=== PATIENT | female | born 1980 | race Caucasian/White ===

== ENCOUNTER 2017-01-17 11:14 | Emergency (ER) | payer OTHER, MEDICAID ==
[~2017-01-17] VITALS: Ht 160 cm; Wt 78.5 kg
[~2017-01-17 11:14] MED LIST: ACET-2267 PO; ACHD5005; ACHD5005 PO; ALBU17AE23 INH; ALBU8.5H2; ALBU8.5H4 IH; ALBU90AE INH; ALDACTONE25 MG; AMIT50TA3; AZTH250C PO; BENZ-13 PO; BUDE3CAP; BUDE3CAP5; CETI10CA PO; CIPR-225 PO; CIPR500T4 PO; CIPR500T78 PO; CLIN50GE; CLNZ.5T PO; CLON0.5T3; COLE1TAB PO; CPR500T PO; CYCL10TA9 PO; DICY10CA26 PO; DICY20TA33 PO; DIPH1TAB45 PO; DIUREX; DOXY-13; ENAL10TA PO; ESCT10T PO; FAMO-119 PO; HCA25SU PR; HYDR-34 PO; HYDR-3583 PO; HYDR-3714 PO; HYDR-3812; HYDR-3816 PO; HYDR-3820 PO; HYDR-757 PO; HYDR-87 PO; HYDR118S10 PO; HYDR1CAP14 PO; HYDR1TAB PO; HYDR1TAB66 PO; HYDR1TAB75; HYDROCODONE; HYOS0.1216 PO; HYOS0.1218 SL; HYOS0.1283 SL; IBP600T1; IBP800T PO; LORA0.5T; LORA10CA PO; LORA10TA7 PO; LRT10T PO; MESA1.2T PO; MESA500C PO; METH4TAB PO; METR500T PO; METR500T21 PO; MSL250CCR PO; NERVE PILL; NF-AMPE5T; NF-FLON16G NSEACH; NITR-65 PO; OMEP20CA12 PO; OMEP40CA36; ONDA4TAB11 PO; ONDA4TAB8 SL; ONDA8TAB13 PO; ONDN4T PO; OXYC-197 PO; OXYC-471 PO; PANT40SU PO; PNT40TEC PO; POTA10TA6 PO; PRD10T PO; PRD20T PO; PRD5T PO; PRED20TA PO; PROM12.59 PO; PROM25TA14 PO; REMICADE IV; RIFA150C15 PO; SUCR1ORA5 PO; SULF1TAB38 PO; TRAM50TA2 PO; TRAZ-144 PO; TRM50T PO; ZINC30CA PO; ZITHROMAX; ZLP10T; [UNRECOGNIZED DRUG - REMARK]
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
[2017-01-17] MEDS ORDERED: morphine INJ 10 MG/ML 1ML (SYR OR VIAL) IM ONE (11:45)
[2017-01-17] MEDS ORDERED: ORPHENADRINE 60 MG/2 ML (NORFLEX) AMP IM ONE (11:45)
--- NOTE | 2017-01-17 12:01 | Diagnostic Imaging Report ---
INDICATION: Chest pain. FINDINGS: Examination of the chest in the PA and lateral projections fails to reveal evidence of active parenchymal pathology or pleural effusion. The cardiac silhouette is normal. IMPRESSION: Negative chest. Dictated by: Dictated on workstation # [id number]
[2017-01-17 12:10] VITALS: BP 130/103
--- OUTSIDE RECORDS SUMMARY | 2017-02-02 13:11 | XMS REPORT | Continuity of Care Document ---
Author Author [facility] Organization [facility] Address Unknown Phone Unavailable Care Team Providers Care Customer Complaint Service Supervisor Name Role Phone Naveed Lockhart PCP [phone] Source Comments Some departments are not documenting in the electronic medical record. If you do not see the information that you expected, contact Release of Information in the Health Information Management department at [phone] for further assistance in locating additional records.[facility] Active Allergies and Adverse Reactions Allergen Noted Date Severity Reactions Comments Nsaids (Non-Steroidal 06/22/2012 SEE COMMENTS Stomach bleeding Anti-Inflammatory Drug) Pcn 12/19/2008 Current Medications Prescription Sig. Disp. Refills Start End Date Status Date HYDROcodone/acetaminophen Take 1 Tab by mouth every Active (NORCO; VICODIN) 5-325 mg 6 hours as needed. tablet LORATADINE (CLARITIN PO) Take by mouth. Active Sodium,Potassium,&Mag Take 2 Bottles by mouth 354 mL 0 05/19/20 Active Sulfates 17.5-3.13-1.6 as directed. For split 16 gram solr dose colonoscopy prep. budesonide (ENTOCORT EC) Take 1 Cap by mouth as 168 Cap 0 05/21/20 Active 3 mg capsule directed. 3 tabs daily x 16 8 weeks, 2 tabs daily x 1 week, 1 tab daily x 1 week then stop cholecalciferol(+) Take 1 Cap by mouth every 8 Cap 0 05/22/20 Active (Vitamin D3) 50,000 units 7 days. 8 weeks,then OTC 16 capsule Vit D3 1000units by mouth daily thereafter. Check lab in 12 weeks. mesalamine (LIALDA) 1.2 Take 4 Tabs by mouth 120 Tab 0 07/28/20 Active gram tablet daily with breakfast. 16 PENTASA 500 mg cpER TAKE 2 CAPSULES BY MOUTH 240 Cap 0 10/12/20 Active TWICE DAILY [address](+) TAKE 1 CAPSULE BY MOUTH 90 Cap 1 11/10/19 Active (PRILOSEC) 40 mg capsule DAILY BEFORE BREAKFAST 17 Active Problems Problem Noted Date Inadequate material resources 12/25/2014 Noncompliance 05/29/2014 Crohn's disease (HCC) 08/02/2012 Most Recent Encounters Date Type Specialty Providers Description 12/11/2016 Telephone Gastroenterology Moncho Odonnell MD Erroneous encounter-disregard 12/10/2016 Telephone Gastroenterology Loreta Mcfadden ARNP General Question 11/08/2016 Refill Gastroenterology Loreta Mcfadden ARNP Social History Tobacco Use Types Packs/Day Years Used Date Current Every Day Smoker Cigarettes 0.5 11 Smokeless Tobacco: Former Quit: User 06/29/2016 Tobacco Cessation: Ready to Quit: No; Counseling Given: Yes Comments: Alcohol Use Drinks/Week oz/Week Comments No 0 Standard 0.0 drinks or equivalent Last Filed Vital Signs Vital Sign Reading Time Taken Blood Pressure 137/98 07/03/2016 2:02 PM CDT Pulse 61 07/03/2016 2:02 PM CDT Temperature 36.4 C (97.5 F) 07/03/2016 2:02 PM CDT Respiratory Rate 18 05/19/2016 1:19 PM CDT Height 1.6 m (5' 3") 07/03/2016 2:02 PM CDT Weight 76.658 kg (169 lb) 07/03/2016 2:02 PM CDT Body Mass Index 29.94 07/03/2016 2:02 PM CDT Oxygen Saturation 99% 05/21/2016 8:39 AM CDT Plan of Care Health Maintenance Due Date Last Done Comments Physical (Comprehensive) 1985 Exam Pertussis Vaccine 1989 Tetanus Vaccine 1995 Cervical Cancer Screening 1999 Influenza Vaccine 06/25/2017 Results from Last 3 Months Not on file
--- OUTSIDE RECORDS SUMMARY | 2017-02-02 13:22 | XMS REPORT | Continuity of Care Document ---
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 NEGATIVE NEGATIVE Urine glucose detection by automated test strip NEGATIVE NEGATIVE Erythrocytes detection in urine sediment by light microscopy NEGATIVE NEGATIVE Urine ketones detection by automated test strip NEGATIVE NEGATIVE Urine nitrite detection by test strip NEGATIVE NEGATIVE Urine total bilirubin detection by test strip NEGATIVE NEGATIVE Urine urobilinogen measurement by automated test strip (mass/volume) NORMAL NORMAL Urine leukocyte esterase detection by dipstick 1+ NEGATIVE Automated urine sediment erythrocyte count by microscopy (number/high power field) NONE NRG Automated urine sediment leukocyte count by microscopy (number/high power field ) [HPF] NRG Bacteria detection in urine sediment by light microscopy TRACE NRG Crystals detection in urine sediment by light microscopy NONE NRG Casts detection in urine sediment by light microscopy NONE NRG Mucus detection in urine sediment by light microscopy MODERATE NRG Complete urinalysis with reflex to culture NO NRG Complete blood count (CBC) with automated white blood cell (WBC) differential - 09/12/16 14:40 Blood leukocytes automated count (number/volume) 8.5 10*3/ uL 4.3-11.0 Blood erythrocytes automated count (number/volume) 4.48 10*6 /uL 4.35-5.85 Venous blood hemoglobin measurement (mass/volume) 14.0 g/dL 11.5-16.0 Blood hematocrit (volume fraction) 42 % 35-52 Automated erythrocyte mean corpuscular volume 93 [foz_us] 80-99 Automated erythrocyte mean corpuscular hemoglobin (mass per erythrocyte) 31 pg 25-34 Automated erythrocyte mean corpuscular hemoglobin concentration measurement ( mass/volume) 34 g/dL 32-36 Automated erythrocyte distribution width ratio 13.4 % 10.0-14.5 Automated blood platelet count (count/volume) 342 10*3/uL 130-400 Automated blood platelet mean volume measurement 8.9 [foz_us ] 7.4-10.4 Automated blood neutrophils/100 leukocytes 54 % 42-75 Automated blood lymphocytes/100 leukocytes 33 % 12-44 Blood monocytes/100 leukocytes 8 % 0-12 Automated blood eosinophils/100 leukocytes 4 % 0-10 Automated blood basophils/100 leukocytes 1 % 0-10 Blood neutrophils automated count (number/volume) 4.6 10*3 1.8-7.8 Blood lymphocytes automated count (number/volume) 2.8 10*3 1.0-4.0 Blood monocytes automated count (number/volume) 0.7 10*3 0.0-1.0 Automated eosinophil count 0.4 10*3/uL 0.0-0.3 Automated blood basophil count (count/volume) 0.1 10*3/uL 0.0-0.1 Comprehensive metabolic panel - 09/12/16 14:40 Serum or plasma sodium measurement (moles/volume) 142 mmol/ L 135-145 Serum or plasma potassium measurement (moles/volume) 3.6 mmol/L 3.6-5.0 Serum or plasma chloride measurement (moles/volume) 110 mmol /L 98-107 Carbon dioxide 24 mmol/L 21-32 Serum or plasma anion gap determination (moles/volume) 8 mmol/L 5-14 Serum or plasma urea nitrogen measurement (mass/volume) 10 mg/dL 7-18 Serum or plasma creatinine measurement (mass/volume) 0.81 mg /dL 0.60-1.30 Serum or plasma urea nitrogen/creatinine mass ratio 12 NRG Serum or plasma creatinine measurement with calculation of estimated glomerular filtration rate > NRG Serum or plasma glucose measurement (mass/volume) 90 mg/dL 70-105 Serum or plasma calcium measurement (mass/volume) 9.4 mg/dL 8.5-10.1 Serum or plasma total bilirubin measurement (mass/volume) 0.4 mg/dL 0.1-1.0 Serum or plasma alkaline phosphatase measurement (enzymatic activity/volume) 89 U/L 40-136 Serum or plasma aspartate aminotransferase measurement (enzymatic activity/ volume) 15 U/L 5-34 Serum or plasma alanine aminotransferase measurement (enzymatic activity/volume ) 15 U/L 0-55 Serum or plasma protein measurement (mass/volume) 6.4 g/dL 6.4-8.2 Serum or plasma albumin measurement (mass/volume) 4.2 g/dL 3.2-4.5 Lipase - 09/12/16 14:40 Lipase 33 U/L 8-78 Serum or plasma C reactive protein measurement (mass/volume) - 09/12/16 14:40 Serum or plasma C reactive protein measurement (mass/volume) 0.35 mg/dL 0.00-0.50 Erythrocyte sedimentation rate by westergren method - 09/12/16 14:40 Erythrocyte sedimentation rate by westergren method 7 mm 0-20 Complete urinalysis with reflex to culture - 09/12/16 15:45 Urine color determination YELLOW NRG Urine clarity determination CLEAR NRG Urine pH measurement by test strip 6 5- 9 Specific gravity of urine by test strip 1.010 1.016-1.022 Urine protein assay by test strip, semi-quantitative NEGATIVE NEGATIVE Urine glucose detection by automated test strip NEGATIVE NEGATIVE Erythrocytes detection in urine sediment by light microscopy NEGATIVE NEGATIVE Urine ketones detection by automated test strip NEGATIVE NEGATIVE Urine nitrite detection by test strip NEGATIVE NEGATIVE Urine total bilirubin detection by test strip NEGATIVE NEGATIVE Urine urobilinogen measurement by automated test strip (mass/volume) NORMAL NORMAL Urine leukocyte esterase detection by dipstick NEGATIVE NEGATIVE Automated urine sediment erythrocyte count by microscopy (number/high power field) NONE NRG Automated urine sediment leukocyte count by microscopy (number/high power field ) [HPF] NRG Bacteria detection in urine sediment by light microscopy NEGATIVE NRG Squamous epithelial cells detection in urine sediment by light microscopy 5-10 NRG Crystals detection in urine sediment by light microscopy NONE NRG Casts detection in urine sediment by light microscopy NONE NRG Mucus detection in urine sediment by light microscopy NEGATIVE NRG Complete urinalysis with reflex to culture NO NRG Renal epithelial cells detection in urine sediment by light microscopy NONE NRG Encounters ACCT No. Visit Date/Time Discharge Status Pt. Type Provider Facility Loc./Unit Complaint [id number] 06/07/2013 12:29:00 06/07/2013 23: 59:59 CLS Outpatient
--- OUTSIDE RECORDS SUMMARY | 2017-02-02 13:23 | XMS REPORT ---
Author Author WESTON BERRIOS Organization [employer] Address Unknown Phone Unavailable Care Team Providers Care Senior Research Scientist Name Role Phone WESTON BERRISO CP Unavailable Allergies, Adverse Reactions, Alerts Substance Reaction Event Type Penicillin V Potassium Info Not Available Drug Allergy Aspirin Info Not Available Drug Allergy NSAIDS Info Not Available Non Drug Allergy Problems Problem Type Condition Code Onset Dates Condition Status Assessment Dental examination Z01.20 Active Problem Nausea alone 787.02 Active Problem Other drug allergy 995.27 Active Problem Acute pain due to trauma 338.11 Active Problem Injury, other and unspecified, unspecified site 959.9 Active Problem Other general symptoms 780.99 Active Problem Diarrhea 787.91 Active Problem Shortness of breath 786.05 Active Problem Pain in joint, ankle and foot 719.47 Active Problem Injury, other and unspecified, knee, leg, ankle, and foot 959.7 Active Medications Medication Code System Code Instructions Start Date End Date Status Dosage Bauxite [facility] [place] [address]-39 5-325 MG Orally every 6 hrs 1 tablet as needed Claritin [facility] [place] [address]-21 not defined Phenergan [facility] [place] [address]-84 not defined Procedures Procedure Coding System Code Date LTD ORAL EVALUATION - PROBLEM FOCUS CPT-4 D0140 Nov 07, 2015 Vital Signs Date/Time: Nov 07, 2015 Blood Pressure Diastolic 74 mmHg Blood Pressure Systolic 113 mmHg Results No Known Results Summary Purpose [employer] Submission
== END 2017-01-17 12:10 | disposition home or self-care (01) ==
LOC: EDUNIT# 11:14 → ER 11:17
DX: S29.9XXA Unspecified injury of thorax, initial encounter (principal); Y04.8XXA Assault by other bodily force, initial encounter; Y92.159 Unspecified place in reform school as the place of occurrence of the external cause; Y99.0 Civilian activity done for income or pay
CPT/HCPCS: 71020; 96372; 99284

== ENCOUNTER 2017-02-18 14:11 | Emergency (ER) | payer MEDICAID ==
[~2017-02-18] VITALS: Ht 160 cm; Wt 79.4 kg
[2017-02-18] MEDS ORDERED: NS IV 1000 ML 1,000 ML IV STA (15:50)
[2017-02-18] MEDS ORDERED: fentaNYL INJECTION 100 MCG/2 ML AMP IVP STA (15:50)
--- NOTE | 2017-02-18 15:58 | ED Abdominal Pain ---
General Chief Complaint: Abdominal/GI Problems Stated Complaint: ABD PAIN/DIARRHEA Source of Information: Patient Exam Limitations: No Limitations History of Present Illness Time Seen By Provider: 15:40 Initial Comments Here with report of central abdominal pain typical for her Crohn's flare. Denies vomiting but has nausea. Does report diarrhea. Reports she may have had a little blood in some of her diarrhea. She has long history of this. Denies fever or chills. Timing/Duration: 1 Week, Changing Over Time, Getting Worse Severity/Quality: Moderate, Sharp Location: RLQ Radiation: No Radiation Activities at Onset: None Modifying Factors: Worsens With Eating Associated Symptoms: No Back Pain, No Fever/Chills, Nausea/Vomiting, No Shortness of Air, No Weakness Allergies and Home Medications Allergies Coded Allergies: NSAIDS (Non-Steroidal Anti-Inflamma (Verified Allergy, Intermediate, ) Penicillins (Verified Allergy, Mild, HIVES, 02/22/09) penicillin V (Unverified Allergy, Mild, 02/24/09) Sulfa (Sulfonamide Antibiotics) (Verified Allergy, Unknown, 01/17/14) BREAK OUT IN A RED RASH WITH VOMITING ketorolac tromethamine (Unverified Allergy, Unknown, 01/17/14) naproxen (Unverified Allergy, Unknown, 01/17/14) Uncoded Allergies: PCN (Allergy, Mild, 05/01/09) ANTI-INFLAMMATORY (Allergy, Unknown, 01/17/14) Home Medications Dicyclomine HCl 20 Mg Tablet, 20 MG PO TID, #30 Ref 0 Prescribed by: IGNACIO SHIELDS on 09/12/16 1633 Famotidine 20 Mg Tablet, 20 MG PO BID, #60 Ref 0 Prescribed by: IGNACIO SHIELDS on 09/12/16 1647 Hydrocodone/Acetaminophen 1 Each Tablet, #63 (Reported) Hydrocodone/Acetaminophen 1 Each Tablet, 1 EACH PO Q4H PRN for PAIN, #20 Ref 0 Prescribed by: IGNACIO SHIELDS on 08/26/16 1946 Mesalamine 500 Mg Capsule.er, 1,000 MG PO BID, (Reported) TAKES 2 (500MG) CAPSULES Omeprazole 40 Mg Capsule., #30 (Reported) Review of Systems Constitutional: see HPI, No chills, No fever EENTM: No Symptoms Reported Respiratory: No Symptoms Reported Cardiovascular: No Symptoms Reported Gastrointestinal: See HPI, Abdominal Pain, Diarrhea, Rectal Bleeding Genitourinary: No Symptoms Reported All Other Systems Reviewed Negative Unless Noted: Yes Past [id number]-[id number] Hx Patient Social History Alcohol Use: Denies Use Recreational Drug Use: No (SMOKES 1/2 PPD) Type Used: Cigarettes Recent Foreign Travel: No Contact w/Someone Who Travel: No Recent Hopitalizations: Yes Immunizations Up To Date Tetanus Booster (TDap): Less than 5yrs Date of Pneumonia Vaccine: Nov 04, 2010 Date of Influenza Vaccine: Jul 12, 2011 Seasonal Allergies Seasonal Allergies: Yes Surgeries HX Surgeries: Yes (BURN SURG, SMALL BOWEL RESECT, NASAL, RIGHT HIP) Surgeries: Abdominal, Appendectomy, Section, Gallbladder, Hysterectomy , Orthopedic, 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 Respiratory Hx Respiratory Disorders: Yes Respiratory Disorders: Asthma Cardiovascular Hx Cardiac Disorders: No Cardiac Disorders: Hypertension Neurological Hx Neurological Disorders: No Reproductive System Hx Reproductive Disorders: Yes (PCOS) Sexually Transmitted Disease: No 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: Hysterectomy, 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 Genitourinary Hx Genitourinary Disorders: Yes Genitourinary Disorders: Kidney Stones Gastrointestinal Hx Gastrointestinal Disorders: Yes (chronic abdominal pain, nausea, vomiting, and diarrhea) Gastrointestinal Disorders: Crohns Disease Musculoskeletal Hx Musculoskeletal Disorders: Yes Musculoskeletal Disorders: Back Injury, Chronic Back Pain Endocrine Hx Endocrine Disorders: No HEENT HX ENT Disorders: No Cancer Hx Cancer: No Psychosocial Hx Psychiatric Problems: Yes Behavioral Health Disorders: Anxiety Integumentary HX Skin/Integumentary Disorder: No Blood Transfusions Hx Blood Disorders: No Adverse Reaction to a Blood Tr: No Reviewed Nursing Assessment Reviewed/Agree w Nursing PMH: Yes Family Medical History Significant Family History: No Pertinent Family Hx Family Medial History: Family history: Diabetes mellitus 19 FATHER 19 MOTHER G8 SISTER Physical Exam Vital Signs VS - Last 72 Hours, by Label 02/18/17 15:17 Temp 98.2 Pulse 78 Resp 18 B/P (MAP) 142/95 Pulse Ox 97 O2 Delivery Room Air Capillary Refill : General Appearance: WD/WN, no apparent distress HEENT: PERRL/EOMI, pharynx normal Neck: full range of motion, supple Respiratory: lungs clear, normal breath sounds Cardiovascular: regular rate, rhythm, no murmur Gastrointestinal: non tender, soft Extremities: non-tender, normal inspection Back: normal inspection, no CVA tenderness, no vertebral tenderness Neurologic/Psychiatric: alert, oriented x 3 Skin: normal color, warm/dry Progress/Results/Core Measures Results/Orders Lab Results Laboratory Tests Test 02/18/17 15:45 Range/Units White Blood Count 11.6 H 4.3-11.0 10^3/uL Red Blood Count 4.58 4.35-5.85 10^6/uL Hemoglobin 14.3 11.5-16.0 G/DL Hematocrit 43 35-52 % Mean Corpuscular Volume 94 80-99 FL Mean Corpuscular Hemoglobin 31 25-34 PG Mean Corpuscular Hemoglobin Concent 33 32-36 G/DL Red Cell Distribution Width 13.0 10.0-14.5 % Platelet Count 380 130-400 10^3/uL Mean Platelet Volume 8.7 7.4-10.4 FL Neutrophils (%) (Auto) 56 42-75 % Lymphocytes (%) (Auto) 26 12-44 % Monocytes (%) (Auto) 5 0-12 % Eosinophils (%) (Auto) 13 H 0-10 % Basophils (%) (Auto) 0 0-10 % Neutrophils # (Auto) 6.5 1.8-7.8 X 10^3 Lymphocytes # (Auto) 3.0 1.0-4.0 X 10^3 Monocytes # (Auto) 0.6 0.0-1.0 X 10^3 Eosinophils # (Auto) 1.4 H 0.0-0.3 10^3/uL Basophils # (Auto) 0.0 0.0-0.1 10^3/uL Neutrophils % (Manual) 54 % Lymphocytes % (Manual) 37 % Monocytes % (Manual) 2 % Eosinophils % (Manual) 7 % Basophils % (Manual) 0 % Band Neutrophils 0 % Blood Morphology Comment NORMAL Erythrocyte Sedimentation Rate 11 0-20 MM/HR Sodium Level 143 135-145 MMOL/L Potassium Level 3.7 3.6-5.0 MMOL/L Chloride Level 107 98-107 MMOL/L Carbon Dioxide Level 26 21-32 MMOL/L Anion Gap 10 5-14 MMOL/L Blood Urea Nitrogen 6 L 7-18 MG/DL Creatinine 0.79 0.60-1.30 MG/DL Estimat Glomerular Filtration Rate > 60 BUN/Creatinine Ratio 8 Glucose Level 77 70-105 MG/DL Calcium Level 9.5 8.5-10.1 MG/DL Magnesium Level 2.0 1.8-2.4 MG/DL Total Bilirubin 0.3 0.1-1.0 MG/DL Aspartate Amino Transf (AST/SGOT) 24 5-34 U/L Alanine Aminotransferase (ALT/SGPT) 27 0-55 U/L Alkaline Phosphatase 86 40-136 U/L C-Reactive Protein High Sensitivity 0.37 0.00-0.50 MG/DL Total Protein 6.7 6.4-8.2 G/DL Albumin 4.1 3.2-4.5 G/DL My Orders Orders - SUKI VARELA MD Cbc With Automated Diff (02/18/17 15:50) Comprehensive Metabolic Panel (02/18/17 15:50) Hs C Reactive Protein (02/18/17 15:50) Magnesium (02/18/17 15:50) Erythrocyte Sedimentation Rate (02/18/17 15:50) Fentanyl Injection (Sublimaze Injection (02/18/17 15:50) Ondansetron Injection (Zofran Injectio (02/18/17 16:00) Ns Iv 1000 Ml (Sodium Chloride 0.9%) (02/18/17 15:50) Manual Differential (02/18/17 15:45) Hydrocodone/Apap 10/325 Tablet (Lortab 1 (02/18/17 17:10) Medications Given in ED Current Medications Medications Dose Ordered Sig/Dominga Route Start Time Stop Time Status Last Admin Dose Admin Ondansetron HCl 4 mg ONCE ONCE IVP 02/18/17 16:00 02/18/17 16:01 DC 02/18/17 16:04 4 MG Vital Signs/I&O Vital Sign - Last 12Hours 02/18/17 15:17 Temp 98.2 Pulse 78 Resp 18 B/P (MAP) 142/95 Pulse Ox 97 O2 Delivery Room Air Progress Note : Progress Note Seen and evaluated. IV, labs, normal saline 1 L bolus, fentanyl 100 g IV and Zofran 4 mg IV ordered. Monitor patient. 1700: No significant acute findings on laboratory data and CRP and sedimentation rate are normal. We will initiate steroid treatment and I will write a small prescription for pain medicine. She is to follow-up with Dr. Armas. Discharged home with return precautions. Patient and family verbalize understanding instructions and agreement with plan. Departure Impression Impression: Primary Impression: Abdominal pain Qualified Codes: R10.30 - Lower abdominal pain, unspecified Disposition: 01 HOME, SELF-CARE Condition: Stable Departure-Patient Inst. Decision time for Depature: 17:18 Referrals: ROSANGELA ARMAS DO (PCP/Family) Primary Care Physician Patient Instructions: Acute Abdomen (Belly Pain), Adult (DC), Crohn's Disease ( DC) Add. Discharge Instructions: All discharge instructions reviewed with patient and/or family. Voiced understanding. Clear liquid diet for 24 hours and then advance as tolerated. Take medications as directed. Follow-up with Dr. Armas in a few days for recheck. Return for worse pain, fever, vomiting, weakness, breathing problems, increasing blood in stool or other concerns as needed. Scripts Prednisone (Prednisone) 20 Mg Tab 40 MG PO DAILY, #614 TAB 0 Refills Prov: SUKI VARELA MD 02/18/17 Hydrocodone/Acetaminophen (Hydrocodon-Acetaminophn 10-325) 1 Each Tablet 1 EACH PO Q8H Y for PAIN, #10 TAB 0 Refills Prov: SUKI VARELA MD 02/18/17 Copy Copies To 1: ROSANGELA ARMAS TIMOTHY D MD Feb 18, 2017 15:58
[2017-02-18] MEDS ORDERED: ONDANSETRON 4 MG/2 ML (SDV) Z0FRAN IVP ONE (16:00)
[2017-02-18 16:21] LABS: BASOPHILS % (AUTO) 0 % (0-10); EOSINOPHILS # (AUTO) 1.4 10^3/uL (0.0-0.3); EOSINOPHILS % (AUTO) 13 % (0-10); LYMPHOCYTES % (AUTO) 26 % (12-44); MEAN CORPUSCULAR HEMOGLOBIN 31 PG (25-34); MEAN CORPUSCULAR HGB CONC 33 G/DL (32-36); MEAN CORPUSCULAR VOLUME 94 FL (80-99); MEAN PLATELET VOLUME 8.7 FL (7.4-10.4); MONOCYTES # (AUTO) 0.6 X 10^3 (0.0-1.0); MONOCYTES % (AUTO) 5 % (0-12); NEUTROPHILS # (AUTO) 6.5 X 10^3 (1.8-7.8); NEUTROPHILS % (AUTO) 56 % (42-75); PLATELET COUNT 380 10^3/uL (130-400); RED BLOOD COUNT 4.58 10^6/uL (4.35-5.85); WHITE BLOOD COUNT 11.6 10^3/uL (4.3-11.0)
[2017-02-18 16:26] LABS: ALANINE AMINOTRANSFERASE 27 U/L (0-55); ALBUMIN 4.1 G/DL (3.2-4.5); ANION GAP 10 MMOL/L (5-14); ASPARTATE AMINO TRANSFERASE 24 U/L (5-34); BILIRUBIN,TOTAL 0.3 MG/DL (0.1-1.0); BLOOD UREA NITROGEN 6 MG/DL (7-18); BUN/CREATININE RATIO 8; CALCIUM 9.5 MG/DL (8.5-10.1); CARBON DIOXIDE 26 MMOL/L (21-32); CHLORIDE 107 MMOL/L (98-107); CREATININE SERUM 0.79 MG/DL (0.60-1.30); GFR ESTIMATED > 60; GLUCOSE 77 MG/DL (70-105); POTASSIUM 3.7 MMOL/L (3.6-5.0); SODIUM 143 MMOL/L (135-145); TOTAL PROTEIN 6.7 G/DL (6.4-8.2); hs C REACTIVE PROTEIN 0.37 MG/DL (0.00-0.50)
[2017-02-18 16:41] LABS: BAND NEUTROPHILS 0 %; BASOPHILS % (MANUAL) 0 %; EOSINOPHILS % (MANUAL) 7 %; LYMPHOCYTES % (MANUAL) 37 %; NEUTROPHILS % (MANUAL) 54 %
[2017-02-18 17:04] LABS: ERYTHROCYTE SEDIMENTATION RATE 11 MM/HR (0-20)
[2017-02-18] MEDS ORDERED: HYDROcodone/APAP 10 MG/325 MG (LORTAB) TAB PO STA (17:10)
[2017-02-18] MEDS ORDERED: HYDR-3820 PO (17:19)
[2017-02-18] MEDS ORDERED: PRD20T PO (17:19)
[2017-02-18 17:30] VITALS: BP 145/90
== END 2017-02-18 17:31 | disposition home or self-care (01) ==
LOC: EDUNIT# 14:11 → ER 14:14
DX: R10.30 Lower abdominal pain, unspecified (principal); R19.7 Diarrhea, unspecified; I10 Essential (primary) hypertension; F17.210 Nicotine dependence, cigarettes, uncomplicated; K50.90 Crohn's disease, unspecified, without complications
CPT/HCPCS: 36415; 80053; 83735; 85007; 85027; 85652; 86141; 96361; 96374; 96375

== ENCOUNTER 2017-03-19 20:25 | Emergency (ER) | payer MEDICAID ==
[~2017-03-19] VITALS: Ht 160 cm; Wt 78.9 kg
[~2017-03-19 20:25] MED LIST changes: -OMEP40CA36; +OMEP40CA36 PO
[2017-03-19] MEDS ORDERED: LORA10CA PO (20:48)
--- NOTE | 2017-03-19 20:55 | ED Abdominal Pain ---
General Chief Complaint: Abdominal/GI Problems Stated Complaint: PROBLEMS WITH CROHNS Source of Information: Patient Exam Limitations: No Limitations History of Present Illness Time Seen By Provider: 20:53 Initial Comments To ER with abdominal pain since this morning. States she has Crohn's and she saw ISABEL on Wednesday of this past week discussing medication changes. Currently she is on Pentasa (though external medication history shows this not to have been filled since December of this year) and has been presrcibed steroids twice within the past 2 months. Denies fevers or chills. Coincidentally, she ran out of her hydrocodone 2 days ago. Severity/Quality: Dull Location: Generalized Abdomen Radiation: No Radiation Allergies and Home Medications Allergies Coded Allergies: NSAIDS (Non-Steroidal Anti-Inflamma (Verified Allergy, Intermediate, ) Penicillins (Verified Allergy, Mild, HIVES, 02/22/09) penicillin V (Unverified Allergy, Mild, 02/24/09) Sulfa (Sulfonamide Antibiotics) (Verified Allergy, Unknown, 01/17/14) BREAK OUT IN A RED RASH WITH VOMITING ketorolac tromethamine (Unverified Allergy, Unknown, 01/17/14) naproxen (Unverified Allergy, Unknown, 01/17/14) Uncoded Allergies: PCN (Allergy, Mild, 05/01/09) ANTI-INFLAMMATORY (Allergy, Unknown, 01/17/14) Home Medications Cefuroxime Axetil 250 Mg Tablet, 250 MG PO BID, #10 Prescribed by: REAL MUÑOZ on 03/19/172113 Famotidine 20 Mg Tablet, 20 MG PO BID, #60 Ref 0 Prescribed by: IGNACIO SHIELDS on 09/12/16 1647 Hydrocodone/Acetaminophen 1 Each Tablet, 1 EACH PO Q4H PRN for PAIN, #20 Ref 0 Prescribed by: IGNACIO SHIELDS on 08/26/16 1946 Loratadine 10 Mg Capsule, 10 MG PO DAILY, (Reported) Mesalamine 500 Mg Capsule.er, 1,000 MG PO BID, (Reported) TAKES 2 (500MG) CAPSULES Omeprazole 40 Mg Capsule.dr, 40 MG PO DAILY, #30 (Reported) Review of Systems Constitutional: see HPI EENTM: No Symptoms Reported Respiratory: No Symptoms Reported Gastrointestinal: See HPI, Abdominal Pain, Diarrhea Genitourinary: No Symptoms Reported Musculoskeletal: no symptoms reported Skin: no symptoms reported Psychiatric/Neurological: No Symptoms Reported Endocrine: No Symptoms Reported Past Qbcxjff-Zaxbyt-Cbnctp Hx Patient Social History Type Used: Cigarettes Recent Foreign Travel: No Contact w/Someone Who Travel: No Recent Hopitalizations: Yes Immunizations Up To Date Tetanus Booster (TDap): Less than 5yrs Date of Pneumonia Vaccine: Nov 04, 2010 Date of Influenza Vaccine: Jul 12, 2011 Seasonal Allergies Seasonal Allergies: Yes Surgeries HX Surgeries: Yes (BURN SURG, SMALL BOWEL RESECT, NASAL, RIGHT HIP) Surgeries: Abdominal, Appendectomy, Section, Gallbladder, Hysterectomy , Orthopedic, 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 Respiratory Hx Respiratory Disorders: Yes Respiratory Disorders: Asthma Cardiovascular Hx Cardiac Disorders: No Cardiac Disorders: Hypertension Neurological Hx Neurological Disorders: No Reproductive System Hx Reproductive Disorders: Yes (PCOS) Sexually Transmitted Disease: No 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, 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 Genitourinary Hx Genitourinary Disorders: Yes Genitourinary Disorders: Kidney Stones Gastrointestinal Hx Gastrointestinal Disorders: Yes (chronic abdominal pain, nausea, vomiting, and diarrhea) Gastrointestinal Disorders: Crohns Disease Musculoskeletal Hx Musculoskeletal Disorders: Yes Musculoskeletal Disorders: Back Injury, Chronic Back Pain Endocrine Hx Endocrine Disorders: No HEENT HX ENT Disorders: No Cancer Hx Cancer: No Psychosocial Hx Psychiatric Problems: Yes Behavioral Health Disorders: Anxiety Integumentary HX Skin/Integumentary Disorder: No Blood Transfusions Hx Blood Disorders: No Adverse Reaction to a Blood Tr: No Family Medical History Significant Family History: No Pertinent Family Hx Family Medial History: Family history: Diabetes mellitus 19 FATHER 19 MOTHER G8 SISTER Physical Exam Vital Signs VS - Last 72 Hours, by Label 03/19/17 03/19/17 03/19/17 20:39 21:04 21:35 Temp 98.4 98.4 98.4 Pulse 87 87 Resp 20 20 B/P (MAP) 143/103 Pulse Ox 97 97 O2 Delivery Room Air Capillary Refill : General Appearance: WD/WN, no apparent distress HEENT: PERRL/EOMI, normal ENT inspection Neck: non-tender, full range of motion Respiratory: no respiratory distress, no accessory muscle use Cardiovascular: regular rate, rhythm, no murmur Gastrointestinal: normal bowel sounds, soft, tenderness Extremities: normal range of motion Neurologic/Psychiatric: alert, normal mood/affect, oriented x 3 Skin: normal color, warm/dry Progress/Results/Core Measures Results/Orders Lab Results Laboratory Tests Test 03/19/17 20:50 03/19/17 21:05 Range/Units Urine Color YELLOW Urine Clarity SLIGHTLY CLOUDY Urine pH 5 5-9 Urine Specific [place] 1.025 H 1.016-1.022 Urine Protein 1+ H NEGATIVE Urine Glucose (UA) NEGATIVE NEGATIVE Urine Ketones 1+ H NEGATIVE Urine Nitrite NEGATIVE NEGATIVE Urine Bilirubin 1+ H NEGATIVE Urine Urobilinogen 1 NORMAL MG/DL Urine Leukocyte Esterase 2+ H NEGATIVE Urine RBC (Auto) NEGATIVE NEGATIVE Urine RBC NONE /HPF Urine WBC 10-25 H /HPF Urine Squamous Epithelial Cells 2-5 /HPF Urine Crystals NONE /LPF Urine Bacteria FEW H /HPF Urine Casts NONE /LPF Urine Mucus MODERATE H /LPF Urine Culture Indicated YES Urine Opiates Screen POSITIVE H NEGATIVE Urine Oxycodone Screen NEGATIVE NEGATIVE Urine Methadone Screen NEGATIVE NEGATIVE Urine Propoxyphene Screen NEGATIVE NEGATIVE Urine Barbiturates Screen NEGATIVE NEGATIVE Ur Tricyclic Antidepressants Screen NEGATIVE NEGATIVE Urine Phencyclidine Screen NEGATIVE NEGATIVE Urine Amphetamines Screen NEGATIVE NEGATIVE Urine Methamphetamines Screen NEGATIVE NEGATIVE Urine Benzodiazepines Screen NEGATIVE NEGATIVE Urine Cocaine Screen NEGATIVE NEGATIVE Urine Cannabinoids Screen NEGATIVE NEGATIVE White Blood Count 10.6 4.3-11.0 10^3/uL Red Blood Count 4.15 L 4.35-5.85 10^6/uL Hemoglobin 13.1 11.5-16.0 G/DL Hematocrit 39 35-52 % Mean Corpuscular Volume 93 80-99 FL Mean Corpuscular Hemoglobin 32 25-34 PG Mean Corpuscular Hemoglobin Concent 34 32-36 G/DL Red Cell Distribution Width 12.4 10.0-14.5 % Platelet Count 370 130-400 10^3/uL Mean Platelet Volume 8.7 7.4-10.4 FL Neutrophils (%) (Auto) 47 42-75 % Lymphocytes (%) (Auto) 36 12-44 % Monocytes (%) (Auto) 8 0-12 % Eosinophils (%) (Auto) 9 0-10 % Basophils (%) (Auto) 1 0-10 % Neutrophils # (Auto) 5.0 1.8-7.8 X 10^3 Lymphocytes # (Auto) 3.8 1.0-4.0 X 10^3 Monocytes # (Auto) 0.8 0.0-1.0 X 10^3 Eosinophils # (Auto) 1.0 H 0.0-0.3 10^3/uL Basophils # (Auto) 0.1 0.0-0.1 10^3/uL My Orders Orders - REAL MUÑOZ APRN Cbc With Automated Diff (03/19/17 20:28) Ua Culture If Indicated (03/19/17 20:28) Morphine Injection (Morphine Injection (03/19/17 21:00) Drug Screen Stat (Urine) (03/19/17 21:05) Urine Culture (03/19/17 20:50) Cephalexin Capsule (Keflex Capsule) (03/19/17 21:15) Medications Given in ED Current Medications Medications Dose Ordered Sig/Dominga Route Start Time Stop Time Status Last Admin Dose Admin Cephalexin HCl 500 mg ONCE ONCE PO 03/19/17 21:15 03/19/17 21:16 DC 03/19/17 21:24 500 MG Morphine Sulfate 10 mg ONCE ONCE IM 03/19/17 21:00 03/19/17 21:01 DC 03/19/17 21:04 10 MG Vital Signs/I&O Vital Sign - Last 12Hours 03/19/17 03/19/17 03/19/17 20:39 21:04 21:35 Temp 98.4 98.4 98.4 Pulse 87 87 Resp 20 20 B/P (MAP) 143/103 Pulse Ox 97 97 O2 Delivery Room Air Departure Communication Progress Notes [id number]-patient is now crying and sobbing in bed talking on speaker phone on her cell phone. She received 10 mg of intramuscular morphine but insists that it hasn't helped. Labs are unremarkable and she states that her labs don't show Crohn's flares. I discussed with her the white blood cells in her urine but she states that she does not drink soda so she does not have a bladder infection. She's been to the emergency room 91 times and had extensive workups and CT scans. Impression Impression: Primary Impression: Chronic abdominal pain Additional Impression: Urinary tract infection Disposition: HOME, SELF-CARE Condition: Stable Departure-Patient Inst. Decision time for Depature: 20:55 Referrals: ROSANGELA ARMAS DO (PCP/Family) Primary Care Physician Patient Instructions: No Instuctions Given Add. Discharge Instructions: 1. See Dr. Dr. Armas to refill your hydrocodone All discharge instructions reviewed with patient and/or family. Voiced understanding. Scripts Cefuroxime Axetil (Cefuroxime) 250 Mg Tablet 250 MG PO BID, #10 TAB Prov: REAL MUÑOZ APRN 03/19/17 REAL MUÑOZ APRN March 19, 2017 20:55
[2017-03-19] MEDS ORDERED: morphine INJ 10 MG/ML 1ML (SYR OR VIAL) IM ONE (21:00)
[2017-03-19 21:02] LABS: BILIRUBIN,URINE 1+ (NEGATIVE); KETONES,URINE 1+ (NEGATIVE); LEUKOCYTE ESTERASE ,URINE 2+ (NEGATIVE); NITRITE,URINE NEGATIVE (NEGATIVE); PH,URINE 5 (5-9); PROTEIN,URINE 1+ (NEGATIVE); UROBILINOGEN,URINE 1 MG/DL (NORMAL)
[2017-03-19 21:11] LABS: BASOPHILS # (AUTO) 0.1 10^3/uL (0.0-0.1); BASOPHILS % (AUTO) 1 % (0-10); EOSINOPHILS % (AUTO) 9 % (0-10); LYMPHOCYTES # (AUTO) 3.8 X 10^3 (1.0-4.0); LYMPHOCYTES % (AUTO) 36 % (12-44); MEAN CORPUSCULAR HEMOGLOBIN 32 PG (25-34); MEAN CORPUSCULAR HGB CONC 34 G/DL (32-36); MEAN CORPUSCULAR VOLUME 93 FL (80-99); MEAN PLATELET VOLUME 8.7 FL (7.4-10.4); MONOCYTES # (AUTO) 0.8 X 10^3 (0.0-1.0); MONOCYTES % (AUTO) 8 % (0-12); NEUTROPHILS % (AUTO) 47 % (42-75); PLATELET COUNT 370 10^3/uL (130-400); RED BLOOD COUNT 4.15 10^6/uL (4.35-5.85); RED CELL DISTRIBUTION WIDTH 12.4 % (10.0-14.5); WHITE BLOOD COUNT 10.6 10^3/uL (4.3-11.0)
[2017-03-19] MEDS ORDERED: CEFU250T80 PO (21:14)
[2017-03-19] MEDS ORDERED: CEPHALEXIN 250 MG (KEFLEX) CAP PO ONE (21:15)
[2017-03-19 21:35] VITALS: BP 143/103
== END 2017-03-19 21:35 | disposition home or self-care (01) ==
LOC: EDUNIT# 20:25 → ER 20:27
DX: N39.0 Urinary tract infection, site not specified (principal); K50.90 Crohn's disease, unspecified, without complications; I10 Essential (primary) hypertension; Z79.899 Other long term (current) drug therapy
CPT/HCPCS: 36415; 80306; 81000; 85025; 87088; 96372; 99282

== ENCOUNTER 2017-04-12 18:49 | Emergency (ER) | payer MEDICAID ==
[~2017-04-12] VITALS: Ht 160 cm; Wt 78.0 kg
[~2017-04-12 18:49] MED LIST changes: +CEFU250T80 PO
[2017-04-12] MEDS ORDERED: DICY20TA10 (19:23)
[2017-04-12 19:50] LABS: BILIRUBIN,URINE NEGATIVE (NEGATIVE); KETONES,URINE NEGATIVE (NEGATIVE); LEUKOCYTE ESTERASE ,URINE 1+ (NEGATIVE); NITRITE,URINE NEGATIVE (NEGATIVE); PH,URINE 5 (5-9); PROTEIN,URINE NEGATIVE (NEGATIVE); UROBILINOGEN,URINE 1 MG/DL (NORMAL)
[2017-04-12 19:58] LABS: BASOPHILS # (AUTO) 0.1 10^3/uL (0.0-0.1); BASOPHILS % (AUTO) 1 % (0-10); EOSINOPHILS # (AUTO) 1.1 10^3/uL (0.0-0.3); EOSINOPHILS % (AUTO) 10 % (0-10); LYMPHOCYTES # (AUTO) 2.9 X 10^3 (1.0-4.0); LYMPHOCYTES % (AUTO) 28 % (12-44); MEAN CORPUSCULAR HEMOGLOBIN 31 PG (25-34); MEAN CORPUSCULAR HGB CONC 33 G/DL (32-36); MEAN CORPUSCULAR VOLUME 94 FL (80-99); MEAN PLATELET VOLUME 8.9 FL (7.4-10.4); MONOCYTES # (AUTO) 0.6 X 10^3 (0.0-1.0); MONOCYTES % (AUTO) 6 % (0-12); NEUTROPHILS # (AUTO) 5.8 X 10^3 (1.8-7.8); NEUTROPHILS % (AUTO) 55 % (42-75); PLATELET COUNT 371 10^3/uL (130-400); RED BLOOD COUNT 4.73 10^6/uL (4.35-5.85); RED CELL DISTRIBUTION WIDTH 12.8 % (10.0-14.5); WHITE BLOOD COUNT 10.4 10^3/uL (4.3-11.0)
[2017-04-12 20:04] LABS: SQUAMOUS EPITHELIAL CELL,UR 0-2 /HPF
--- NOTE | 2017-04-12 20:05 | ED Abdominal Pain ---
General Chief Complaint: Abdominal/GI Problems Stated Complaint: CROHN'S DISEASE/VOMITING/NAUSEA Nursing Triage Note: To ED amb reporting abd pain starting yesterday, has decreased appetite and not eating much as it worsens pain. Has seen [facility] gastroentrologist 4 weeks ago that wants to refer pt to more local area like [place]. Sepsis Screen: No Definite Risk Source of Information: Patient Exam Limitations: No Limitations History of Present Illness Time Seen By Provider: 20:05 Initial Comments 37 yo female patient presents to the ED with c/o generalized abdominal pain. patient has a h/o Crohn's with chronic abdominal pain. Patient states she was seen by a lien searcher at with plan for referral to a GI specialist in [place] for IM injections. states appointment has not been scheduled. Was seen earlier this week by Dr. Armas. Timing/Duration: Other (chronic symptoms, worse today.) Severity/Quality: Cramping Location: Generalized Abdomen Radiation: No Radiation Activities at Onset: None Modifying Factors: Worsens With Defecating, Worsens With Eating Allergies and Home Medications Allergies Coded Allergies: NSAIDS (Non-Steroidal Anti-Inflamma (Verified Allergy, Intermediate, ) Penicillins (Verified Allergy, Mild, HIVES, 02/22/09) penicillin V (Unverified Allergy, Mild, 02/24/09) Sulfa (Sulfonamide Antibiotics) (Verified Allergy, Unknown, 01/17/14) BREAK OUT IN A RED RASH WITH VOMITING ketorolac tromethamine (Unverified Allergy, Unknown, 01/17/14) naproxen (Unverified Allergy, Unknown, 01/17/14) Uncoded Allergies: PCN (Allergy, Mild, 05/01/09) ANTI-INFLAMMATORY (Allergy, Unknown, 01/17/14) Home Medications Cefuroxime Axetil 250 Mg Tablet, 250 MG PO BID, #10 Prescribed by: REAL MUÑOZ on 03/19/174 Dicyclomine HCl 20 Mg Tablet, #90 (Reported) Famotidine 20 Mg Tablet, 20 MG PO BID, #60 Ref 0 Prescribed by: IGNACIO SHIELDS on 09/12/16 1647 Hydrocodone/Acetaminophen 1 Each Tablet, 1 EACH PO Q4H PRN for PAIN, #20 Ref 0 Prescribed by: IGNACIO SHIELDS on 08/26/16 1946 Loratadine 10 Mg Capsule, 10 MG PO DAILY, (Reported) Mesalamine 500 Mg Capsule.er, 1,000 MG PO BID, (Reported) TAKES 2 (500MG) CAPSULES Nitrofurantoin Monohyd/M-Cryst 100 Mg Capsule, 1 TAB PO BID, #6 Ref 0 Prescribed by: IGNACIO SHIELDS on 04/12/177 Omeprazole 40 Mg Capsule.dr, 40 MG PO DAILY, #30 (Reported) Ondansetron 8 Mg Tab.rapdis, 8 MG PO Q6H PRN for NAUSEA/VOMITING-1ST LINE, #10 Ref 0 Prescribed by: IGNACIO SHIELDS on 04/12/172230 Prednisone 10 Mg Tab, 10 MG PO UD, #50 Ref 0 40 mg po daily x5d, then 30 mg po daily x5d, then 20 mg po daily x5d, then 10 mg po daily x5d. Prescribed by: IGNACIO SHIELDS on 04/12/172230 Review of Systems Constitutional: No chills, No fever Respiratory: No Symptoms Reported Cardiovascular: No Symptoms Reported Gastrointestinal: See HPI, Denies Abdomen Distended, Abdominal Pain, Denies Constipated, Diarrhea, Nausea, Poor Appetite, Denies Poor Fluid Intake, Denies Rectal Bleeding, Vomiting Genitourinary: Denies Burning, Denies Frequency, Denies Flank Pain, Denies Hematuria, Denies Pain Musculoskeletal: no symptoms reported Skin: no symptoms reported Psychiatric/Neurological: No Symptoms Reported All Other Systems Reviewed Negative Unless Noted: Yes (Negative excepted noted.) Past Pfoekac-Fjssjx-Blidzh Hx Patient Social History Alcohol Use: Denies Use Recreational Drug Use: No Type Used: Cigarettes 2nd Hand Smoke Exposure: Yes Recent Foreign Travel: No Contact w/Someone Who Travel: No Recent Infectious Disease Expo: No Recent Hopitalizations: No Immunizations Up To Date Tetanus Booster (TDap): Less than 5yrs Date of Pneumonia Vaccine: Nov 04, 2010 Date of Influenza Vaccine: Jul 12, 2011 Seasonal Allergies Seasonal Allergies: Yes Surgeries HX Surgeries: Yes (BURN SURG, SMALL BOWEL RESECT, NASAL, RIGHT HIP) Surgeries: Abdominal, Appendectomy, Section, Gallbladder, Hysterectomy , Orthopedic, 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 Respiratory Hx Respiratory Disorders: Yes Respiratory Disorders: Asthma Cardiovascular Hx Cardiac Disorders: No Cardiac Disorders: Hypertension Neurological Hx Neurological Disorders: No Reproductive System Hx Reproductive Disorders: Yes (PCOS) Sexually Transmitted Disease: No 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 Genitourinary Hx Genitourinary Disorders: Yes Genitourinary Disorders: Kidney Stones Gastrointestinal Hx Gastrointestinal Disorders: Yes (chronic abdominal pain, nausea, vomiting, and diarrhea) Gastrointestinal Disorders: Crohns Disease Musculoskeletal Hx Musculoskeletal Disorders: Yes Musculoskeletal Disorders: Back Injury, Chronic Back Pain Endocrine Hx Endocrine Disorders: No HEENT HX ENT Disorders: No Cancer Hx Cancer: No Psychosocial Hx Psychiatric Problems: Yes Behavioral Health Disorders: Anxiety Integumentary HX Skin/Integumentary Disorder: No Blood Transfusions Hx Blood Disorders: No Adverse Reaction to a Blood Tr: No Reviewed Nursing Assessment Reviewed/Agree w Nursing PMH: Yes Family Medical History Significant Family History: No Pertinent Family Hx Family Medial History: Family history: Diabetes mellitus 19 FATHER 19 MOTHER G8 SISTER Physical Exam Vital Signs VS - Last 72 Hours, by Label 04/12/17 04/12/17 04/12/17 19:06 22:31 22:32 Temp 97.2 97.2 97.2 Pulse 76 Resp 20 B/P (MAP) 130/92 Pulse Ox 99 O2 Delivery Room Air Capillary Refill : Less Than 3 Seconds General Appearance: WD/WN, no apparent distress HEENT: PERRL/EOMI, pharynx normal Neck: supple, normal inspection Respiratory: lungs clear, normal breath sounds, no respiratory distress Cardiovascular: regular rate, rhythm, no murmur Gastrointestinal: normal bowel sounds, soft, no organomegaly, No distended, guarding (right lower quadrant and suprapubic), No rebound, tenderness ( generalized tenderness) Extremities: normal capillary refill Back: normal inspection, no CVA tenderness Neurologic/Psychiatric: alert, normal mood/affect, oriented x 3 Skin: normal color, warm/dry, tattoos/piercings Progress/Results/Core Measures Results/Orders Lab Results Laboratory Tests Test 04/12/17 19:44 04/12/17 19:50 Range/Units Urine Color YELLOW Urine Clarity CLEAR Urine pH 5 5-9 Urine Specific [place] 1.020 1.016-1.022 Urine Protein NEGATIVE NEGATIVE Urine Glucose (UA) NEGATIVE NEGATIVE Urine Ketones NEGATIVE NEGATIVE Urine Nitrite NEGATIVE NEGATIVE Urine Bilirubin NEGATIVE NEGATIVE Urine Urobilinogen 1 NORMAL MG/DL Urine Leukocyte Esterase 1+ H NEGATIVE Urine RBC (Auto) NEGATIVE NEGATIVE Urine RBC NONE /HPF Urine WBC 2-5 /HPF Urine Squamous Epithelial Cells 0-2 /HPF Urine Crystals NONE /LPF Urine Bacteria FEW H /HPF Urine Casts NONE /LPF Urine Mucus NEGATIVE /LPF Urine Culture Indicated NO White Blood Count 10.4 4.3-11.0 10^3/uL Red Blood Count 4.73 4.35-5.85 10^6/uL Hemoglobin 14.6 11.5-16.0 G/DL Hematocrit 44 35-52 % Mean Corpuscular Volume 94 80-99 FL Mean Corpuscular Hemoglobin 31 25-34 PG Mean Corpuscular Hemoglobin Concent 33 32-36 G/DL Red Cell Distribution Width 12.8 10.0-14.5 % Platelet Count 371 130-400 10^3/uL Mean Platelet Volume 8.9 7.4-10.4 FL Neutrophils (%) (Auto) 55 42-75 % Lymphocytes (%) (Auto) 28 12-44 % Monocytes (%) (Auto) 6 0-12 % Eosinophils (%) (Auto) 10 0-10 % Basophils (%) (Auto) 1 0-10 % Neutrophils # (Auto) 5.8 1.8-7.8 X 10^3 Lymphocytes # (Auto) 2.9 1.0-4.0 X 10^3 Monocytes # (Auto) 0.6 0.0-1.0 X 10^3 Eosinophils # (Auto) 1.1 H 0.0-0.3 10^3/uL Basophils # (Auto) 0.1 0.0-0.1 10^3/uL Erythrocyte Sedimentation Rate 6 0-20 MM/HR Sodium Level 143 135-145 MMOL/L Potassium Level 3.4 L 3.6-5.0 MMOL/L Chloride Level 108 H 98-107 MMOL/L Carbon Dioxide Level 24 21-32 MMOL/L Anion Gap 11 5-14 MMOL/L Blood Urea Nitrogen 6 L 7-18 MG/DL Creatinine 0.78 0.60-1.30 MG/DL Estimat Glomerular Filtration Rate > 60 BUN/Creatinine Ratio 8 0-20 Glucose Level 98 70-105 MG/DL Calcium Level 9.4 8.5-10.1 MG/DL Total Bilirubin 0.6 0.1-1.0 MG/DL Aspartate Amino Transf (AST/SGOT) 19 5-34 U/L Alanine Aminotransferase (ALT/SGPT) 22 0-55 U/L Alkaline Phosphatase 98 40-136 U/L C-Reactive Protein High Sensitivity 0.28 0.00-0.50 MG/DL Total Protein 7.1 6.4-8.2 GM/DL Albumin 4.3 3.2-4.5 GM/DL Lipase 24 8-78 U/L My Orders Orders - IGNACIO SHIELDS Cbc With Automated Diff (04/12/17 19:28) Comprehensive Metabolic Panel (04/12/17 19:28) Hs C Reactive Protein (04/12/17 19:28) Lipase (04/12/17 19:28) Ua Culture If Indicated (04/12/17 19:28) Erythrocyte Sedimentation Rate (04/12/17 19:28) Morphine Injection (Morphine Injection (04/12/17 20:29) Ondansetron Oral Dissolve Tab (Zofran (04/12/17 20:29) Hyoscyamine Sl Tablet (Levsin Sl Tablet) (04/12/17 20:30) Promethazine Injection (Phenergan Injec (04/12/17 21:30) Methylprednisolone Sod Succ (Solu-Medrol (04/12/17 22:23) Oxycodone/Apap 5/325mg Tablet (Percocet (04/12/17 22:23) Medications Given in ED Current Medications Medications Dose Ordered Sig/Dominga Route Start Time Stop Time Status Last Admin Dose Admin Hyoscyamine Sulfate 0.125 mg ONCE ONCE SL 04/12/17 20:30 04/12/17 20:31 DC 04/12/17 20:52 0.125 MG Vital Signs/I&O Vital Sign - Last 12Hours 04/12/17 04/12/17 04/12/17 19:06 22:31 22:32 Temp 97.2 97.2 97.2 Pulse 76 Resp 20 B/P (MAP) 130/92 Pulse Ox 99 O2 Delivery Room Air Blood Pressure Mean: 105 Departure Communication Progress Notes Laboratory findings discussed with the patient. Plan for discharge to home with prednisone and Zofran. Patient to continue all usual home medications including Pentasa. Patient reports improvement in symptoms with medications given in the emergency department. Patient follow-up with her lien searcher and Dr. Armas as an outpatient. Impression Impression: Primary Impression: Chronic abdominal pain Additional Impression: Urinary tract infection Qualified Codes: N30.00 - Acute cystitis without hematuria Disposition: HOME, SELF-CARE Condition: Improved Departure-Patient Inst. Decision time for Depature: 22:28 Referrals: ROSANGELA ARMAS DO (PCP/Family) Primary Care Physician Patient Instructions: Acute Abdomen (Belly Pain), Adult (DC) Add. Discharge Instructions: All discharge instructions reviewed with patient and/or family. Voiced understanding. Medications as instructed. Continue usual home medications. Clear liquid diet until symptoms improve then you increase slowly to a Low-fat, low residue, bland diet. Drink plenty of fluids. Follow-up with Dr. Armas this week for recheck, call for appointment time tomorrow morning. Follow-up with your lien searcher as an outpatient. Call for appointment time. Return to the emergency department for worsened symptoms or any other concerns. Scripts Nitrofurantoin Monohyd/M-Cryst (Macrobid 100 mg Capsule) 100 Mg Capsule 1 TAB PO BID, #6 CAP 0 Refills Prov: IGNACIO SHIELDS 04/12/17 Ondansetron (Ondansetron Odt) 8 Mg Tab.rapdis 8 MG PO Q6H Y for NAUSEA/VOMITING-1ST LINE, #10 TAB 0 Refills Prov: IGNACIO SHIELDS 04/12/17 Prednisone (Prednisone) 10 Mg Tab 10 MG PO UD, #50 TAB 0 Refills 40 mg po daily x5d, then 30 mg po daily x5d, then 20 mg po daily x5d, then 10 mg po daily x5d. Prov: IGNACIO SHIELDS 04/12/17 Work/School Note: Work Release Form Date Seen in the Emergency Department: Apr 12, 2017 Return to Work: Apr 14, 2017 Restrictions: No Restrictions IGNACIO SHIELDS Apr 12, 2017 20:05
[2017-04-12 20:17] LABS: ERYTHROCYTE SEDIMENTATION RATE 6 MM/HR (0-20)
[2017-04-12 20:21] LABS: ALANINE AMINOTRANSFERASE 22 U/L (0-55); ALBUMIN 4.3 GM/DL (3.2-4.5); ANION GAP 11 MMOL/L (5-14); ASPARTATE AMINO TRANSFERASE 19 U/L (5-34); BILIRUBIN,TOTAL 0.6 MG/DL (0.1-1.0); BLOOD UREA NITROGEN 6 MG/DL (7-18); BUN/CREATININE RATIO 8 (0-20); CALCIUM 9.4 MG/DL (8.5-10.1); CARBON DIOXIDE 24 MMOL/L (21-32); CHLORIDE 108 MMOL/L (98-107); CREATININE SERUM 0.78 MG/DL (0.60-1.30); GFR ESTIMATED > 60; GLUCOSE 98 MG/DL (70-105); HEMOLYSIS 18 (-100-29); ICTERUS 0.5 (-100-1.9); LIPASE 24 U/L (8-78); LIPEMIA 3 (-100-49); POTASSIUM 3.4 MMOL/L (3.6-5.0); SODIUM 143 MMOL/L (135-145); TOTAL PROTEIN 7.1 GM/DL (6.4-8.2); hs C REACTIVE PROTEIN 0.28 MG/DL (0.00-0.50)
[2017-04-12] MEDS ORDERED: morphine INJ 10 MG/ML 1ML (SYR OR VIAL) IM STA (20:29)
[2017-04-12] MEDS ORDERED: ONDANSETRON 4 MG (ZOFRAN) ORAL DISSOLVE TAB SL STA (20:29)
[2017-04-12] MEDS ORDERED: HYOSCYAMINE 0.125 MG (LEVSIN) TAB SL ONE (20:30)
[2017-04-12] MEDS ORDERED: PROMETHAZINE INJ 25 MG/ML (PHENERGAN) AMP IM STA (21:30)
[2017-04-12] MEDS ORDERED: oxyCODONE/APAP 5/325MG (PERCOCET 5) TABLET PO STA (22:23)
[2017-04-12] MEDS ORDERED: methylPREDNISolone 125 MG (Solu-MEDROL) VIAL IV STA (22:23)
[2017-04-12] MEDS ORDERED: PRD10T PO (22:31)
[2017-04-12] MEDS ORDERED: ONDA8TAB13 PO (22:31)
[2017-04-12 22:47] VITALS: BP 129/96
[2017-04-12] MEDS ORDERED: NITR-65 PO (22:47)
--- OUTSIDE RECORDS SUMMARY | 2017-04-15 12:48 | XMS REPORT | Continuity of Care Document ---
Author Author [facility] Organization [facility] Address Unknown Phone Unavailable Care Team Providers Care It Infrastructure Manager Name Role Phone Naveed Lockhart PCP [phone] Source Comments Some departments are not documenting in the electronic medical record. If you do not see the information that you expected, contact Release of Information in the Health Information Management department at [phone] for further assistance in locating additional records.[facility] Active Allergies and Adverse Reactions Allergen Noted [...] split 16 gram solr dose colonoscopy prep. mesalamine (LIALDA) 1.2 Take 4 Tabs by mouth 120 Tab 0 07/28/20 Active gram tablet daily with breakfast. [address](+) TAKE 1 CAPSULE BY MOUTH 90 Cap 1 11/10/19 Active (PRILOSEC) 40 mg capsule DAILY BEFORE BREAKFAST 17 budesonide (ENTOCORT EC) Take 1 Cap by mouth as 168 Cap 0 05/21/20 04/10/20 Discontin 3 mg capsule directed. 3 tabs daily x 16 17 ued 8 weeks, 2 tabs daily x 1 week, 1 tab daily x 1 week then stop cholecalciferol(+) Take 1 Cap by mouth every 8 Cap 0 05/22/20 Discontin (Vitamin D3) 50,000 units 7 days. 8 weeks,then OTC 16 17 ued capsule Vit D3 1000units by mouth daily thereafter. Check lab in 12 weeks. PENTASA 500 mg cpER TAKE 2 CAPSULES BY MOUTH 240 Cap 0 10/12/20 Discontin TWICE DAILY 16 17 ued Active Problems Problem Noted Date Inadequate material resources 12/25/2014 Noncompliance 05/29/2014 Crohn's disease (HCC) 08/02/2012 Most Recent Encounters Date Type Specialty Providers Description 03/19/2017 Telephone Gastroenterology Lalo Carrillo MD Abdominal pain 03/16/2017 [facility] Moncho Odonnell MD Crohn's disease, Encounter unspecified, with unspecified complications (HCC) 03/16/2017 Office Visit Gastroenterology Moncho Odonnell MD Crohn's disease with complication, unspecified gastrointestinal tract location (Primary Dx) 03/12/2017 Telephone Gastroenterology Moncho Odonnell MD Follow-up Phone Call 03/10/2017 Refill Gastroenterology Barber Nguyen MD Medication monitoring encounter (Primary Dx) Social History Tobacco Use Types Packs/Day Years Used Date Current Every Day Smoker Cigarettes 0.5 11 Smokeless Tobacco: Former Quit: User 06/29/2016 Tobacco Cessation: Ready to Quit: No; Counseling Given: Yes Comments: Alcohol Use Drinks/Week oz/Week Comments No 0 Standard 0.0 drinks or equivalent Last Filed Vital Signs Vital Sign Reading Time Taken Blood Pressure 133/100 03/16/2017 1:33 PM CDT Pulse 92 03/16/2017 1:33 PM CDT Temperature 37.1 C (98.8 F) 03/16/2017 1:33 PM CDT Respiratory Rate 16 03/16/2017 1:33 PM CDT Height 1.6 m (5' 3") 03/16/2017 1:33 PM CDT Weight 79.47 kg (175 lb 3.2 oz) 03/16/2017 1:33 PM CDT Body Mass Index 31.04 03/16/2017 1:33 PM CDT Oxygen Saturation 99% 05/21/2016 8:39 AM CDT Plan of Care Health Maintenance Due Date Last Done Comments Physical (Comprehensive) 1985 Exam Pertussis Vaccine 1989 Tetanus Vaccine 1995 Cervical Cancer Screening 1999 Influenza Vaccine 06/25/2017 Results from Last 3 Months * CBC (03/16/2017 2:31 PM) Component Value Range White Blood Cells 10.8 4.5-11.0 K/UL RBC 4.72 4.0-5.0 M/UL Hemoglobin 14.6 12.0-15.0 GM/DL Hematocrit 43.9 36-45 % MCV 92.9 80-100 FL MCH 30.9 26-34 PG MCHC 33.3 32.0-36.0 G/DL RDW 13.7 11-15 % Platelet Count 415 (H) 150-400 K/UL MPV 6.7 (L) 7-11 FL Specimen Blood * COMPREHENSIVE METABOLIC PANEL (03/16/2017 2:31 PM) Component Value Range Sodium 139 137-147 MMOL/L Potassium 3.8 3.5-5.1 MMOL/L Chloride 105 98-110 MMOL/L Glucose 88 70-100 MG/DL Blood Urea Nitrogen 7 7-25 MG/DL Creatinine 0.77 0.4-1.00 MG/DL Calcium 9.4 8.5-10.6 MG/DL Total Protein 7.1 6.0-8.0 G/DL Total Bilirubin 0.4 0.3-1.2 MG/DL Albumin 4.2 3.5-5.0 G/DL Alk Phosphatase 83 25-110 U/L AST (SGOT) 16 7-40 U/L CO2 30 21-30 MMOL/L ALT (SGPT) 14 7-56 U/L Anion Gap 4 3-12 eGFR Non >60Comment: >60 mL/min The eGFR is not validated for use in drug dosing adjustments. Continue to use estimated creatinine clearance per dosing reference text. Please contact the Clinical Pharmacist for questions. eGFR >60Comment: >60 mL/min The eGFR is not validated for use in drug dosing adjustments. Continue to use estimated creatinine clearance per dosing reference text. Please contact the Clinical Pharmacist for questions. Specimen Blood
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
== END 2017-04-12 22:47 | disposition home or self-care (01) ==
LOC: EDUNIT# 18:49 → ER 18:50
DX: N39.0 Urinary tract infection, site not specified (principal); J45.909 Unspecified asthma, uncomplicated; F41.9 Anxiety disorder, unspecified; I10 Essential (primary) hypertension; F17.210 Nicotine dependence, cigarettes, uncomplicated; Z87.19 Personal history of other diseases of the digestive system; Z90.49 Acquired absence of other specified parts of digestive tract; Z87.442 Personal history of urinary calculi; Z98.51 Tubal ligation status; Z90.710 Acquired absence of both cervix and uterus
CPT/HCPCS: 36415; 80053; 81000; 83690; 85025; 85652; 86141; 99282

== ENCOUNTER 2017-04-24 21:26 | Emergency (ER) | payer MEDICAID ==
[~2017-04-24] VITALS: Ht 160 cm; Wt 78.1 kg
[~2017-04-24 21:26] MED LIST changes: +DICY20TA10
--- NOTE | 2017-04-24 21:55 | ED Abdominal Pain ---
General Chief Complaint: Abdominal/GI Problems Stated Complaint: ABD PAIN Nursing Triage Note: pt ambualted to room. pt states she has chrons and her bowels all day have been black. Sepsis Screen: No Definite Risk Source of Information: Patient Exam Limitations: No Limitations History of Present Illness Time Seen By Provider: 21:54 Initial Comments To ER with diffuse abdominal pain worse on the right side that started "just before I got here" she states. She has a history of Crohn's disease but does not take any medication for this other than hydrocodone. K tracks reports that she is out of her 14 days supply of hydrocodone which was filled on 08 April. She states her stools are "black" Timing/Duration: 1-2 Days Severity/Quality: Moderate Radiation: No Radiation Activities at Onset: None Associated Symptoms: Denies Symptoms Allergies and Home Medications Allergies Coded Allergies: NSAIDS (Non-Steroidal Anti-Inflamma (Verified Allergy, Intermediate, ) Penicillins (Verified Allergy, Mild, HIVES, 02/22/09) penicillin V (Unverified Allergy, Mild, 02/24/09) Sulfa (Sulfonamide Antibiotics) (Verified Allergy, Unknown, 01/17/14) BREAK OUT IN A RED RASH WITH VOMITING ketorolac tromethamine (Unverified Allergy, Unknown, 01/17/14) naproxen (Unverified Allergy, Unknown, 01/17/14) Uncoded Allergies: PCN (Allergy, Mild, 05/01/09) ANTI-INFLAMMATORY (Allergy, Unknown, 01/17/14) Home Medications Cefuroxime Axetil 250 Mg Tablet, 250 MG PO BID, #10 Prescribed by: REAL MUÑOZ on 03/19/174 Dicyclomine HCl 20 Mg Tablet, #90 (Reported) Famotidine 20 Mg Tablet, 20 MG PO BID, #60 Ref 0 Prescribed by: IGNACIO SHIELDS on 09/12/16 1647 Hydrocodone/Acetaminophen 1 Each Tablet, 1 EACH PO Q4H PRN for PAIN, #20 Ref 0 Prescribed by: IGNACIO SHIELDS on 08/26/16 1946 Loratadine 10 Mg Capsule, 10 MG PO DAILY, (Reported) Mesalamine 500 Mg Capsule.er, 1,000 MG PO BID, (Reported) TAKES 2 (500MG) CAPSULES Nitrofurantoin Monohyd/M-Cryst 100 Mg Capsule, 1 TAB PO BID, #6 Ref 0 Prescribed by: IGNACIO SHIELDS on 04/12/177 Omeprazole 40 Mg Capsule.dr, 40 MG PO DAILY, #30 (Reported) Ondansetron 8 Mg Tab.rapdis, 8 MG PO Q6H PRN for NAUSEA/VOMITING-1ST LINE, #10 Ref 0 Prescribed by: IGNACIO SHIELDS on 04/12/172230 Prednisone 10 Mg Tab, 10 MG PO UD, #50 Ref 0 40 mg po daily x5d, then 30 mg po daily x5d, then 20 mg po daily x5d, then 10 mg po daily x5d. Prescribed by: IGNACIO SHIELDS on 04/12/172230 Review of Systems Constitutional: see HPI EENTM: No Symptoms Reported Respiratory: No Symptoms Reported Cardiovascular: No Symptoms Reported Gastrointestinal: See HPI, Abdominal Pain Genitourinary: No Symptoms Reported Musculoskeletal: no symptoms reported Skin: no symptoms reported Psychiatric/Neurological: No Symptoms Reported Endocrine: No Symptoms Reported Hematologic/Lymphatic: No Symptoms Reported Past Knkpkcw-Bcvwvc-Yatkza Hx Patient Social History Alcohol Use: Denies Use Recreational Drug Use: No Smoking Status: Current Everyday Smoker Type Used: Cigarettes 2nd Hand Smoke Exposure: Yes Recent Foreign Travel: No Contact w/Someone Who Travel: No Recent Infectious Disease Expo: No Recent Hopitalizations: No Immunizations Up To Date Tetanus Booster (TDap): Less than 5yrs Date of Pneumonia Vaccine: Nov 04, 2010 Date of Influenza Vaccine: Jul 12, 2011 Seasonal Allergies Seasonal Allergies: Yes Surgeries HX Surgeries: Yes (BURN SURG, SMALL BOWEL RESECT, NASAL, RIGHT HIP) Surgeries: Abdominal, Appendectomy, Section, Gallbladder, Hysterectomy , Orthopedic, 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 Respiratory Hx Respiratory Disorders: Yes Respiratory Disorders: Asthma Cardiovascular Hx Cardiac Disorders: No Cardiac Disorders: Hypertension Neurological Hx Neurological Disorders: No Reproductive System Hx Reproductive Disorders: Yes (PCOS) Sexually Transmitted Disease: No 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 Genitourinary Hx Genitourinary Disorders: Yes Genitourinary Disorders: Kidney Stones Gastrointestinal Hx Gastrointestinal Disorders: Yes (chronic abdominal pain, nausea, vomiting, and diarrhea) Gastrointestinal Disorders: Crohns Disease Musculoskeletal Hx Musculoskeletal Disorders: Yes Musculoskeletal Disorders: Back Injury, Chronic Back Pain Endocrine Hx Endocrine Disorders: No HEENT HX ENT Disorders: No Cancer Hx Cancer: No Psychosocial Hx Psychiatric Problems: Yes Behavioral Health Disorders: Anxiety Integumentary HX Skin/Integumentary Disorder: No Blood Transfusions Hx Blood Disorders: No Adverse Reaction to a Blood Tr: No Family Medical History Significant Family History: No Pertinent Family Hx Family Medial History: Family history: Diabetes mellitus 19 FATHER 19 MOTHER G8 SISTER Physical Exam Vital Signs VS - Last 72 Hours, by Label 04/24/17 21:32 Temp 98.4 Pulse 94 Resp 20 B/P (MAP) 134/86 Pulse Ox 96 O2 Delivery Room Air Capillary Refill : Less Than 3 Seconds General Appearance: WD/WN, no apparent distress HEENT: PERRL/EOMI, normal ENT inspection Neck: non-tender, full range of motion Respiratory: no respiratory distress, no accessory muscle use Cardiovascular: regular rate, rhythm, no murmur Gastrointestinal: normal bowel sounds, soft Extremities: normal range of motion, non-tender Neurologic/Psychiatric: alert, normal mood/affect, oriented x 3 Skin: normal color, warm/dry Progress/Results/Core Measures Results/Orders Lab Results Laboratory Tests Test 04/24/17 22:06 04/24/17 22:33 Range/Units White Blood Count 11.4 H 4.3-11.0 10^3/uL Red Blood Count 4.11 L 4.35-5.85 10^6/uL Hemoglobin 13.0 11.5-16.0 G/DL Hematocrit 38 35-52 % Mean Corpuscular Volume 92 80-99 FL Mean Corpuscular Hemoglobin 32 25-34 PG Mean Corpuscular Hemoglobin Concent 34 32-36 G/DL Red Cell Distribution Width 12.9 10.0-14.5 % Platelet Count 331 130-400 10^3/uL Mean Platelet Volume 8.6 7.4-10.4 FL Neutrophils (%) (Auto) 61 42-75 % Lymphocytes (%) (Auto) 26 12-44 % Monocytes (%) (Auto) 7 0-12 % Eosinophils (%) (Auto) 6 0-10 % Basophils (%) (Auto) 0 0-10 % Neutrophils # (Auto) 6.9 1.8-7.8 X 10^3 Lymphocytes # (Auto) 3.0 1.0-4.0 X 10^3 Monocytes # (Auto) 0.8 0.0-1.0 X 10^3 Eosinophils # (Auto) 0.6 H 0.0-0.3 10^3/uL Basophils # (Auto) 0.1 0.0-0.1 10^3/uL Sodium Level 143 135-145 MMOL/L Potassium Level 3.3 L 3.6-5.0 MMOL/L Chloride Level 109 H 98-107 MMOL/L Carbon Dioxide Level 21 21-32 MMOL/L Anion Gap 13 5-14 MMOL/L Blood Urea Nitrogen 6 L 7-18 MG/DL Creatinine 0.79 0.60-1.30 MG/DL Estimat Glomerular Filtration Rate > 60 BUN/Creatinine Ratio 8 Glucose Level 96 70-105 MG/DL Calcium Level 9.1 8.5-10.1 MG/DL Total Bilirubin 0.4 0.1-1.0 MG/DL Aspartate Amino Transf (AST/SGOT) 18 5-34 U/L Alanine Aminotransferase (ALT/SGPT) 20 0-55 U/L Alkaline Phosphatase 81 40-136 U/L C-Reactive Protein High Sensitivity 0.44 0.00-0.50 MG/DL Total Protein 6.4 6.4-8.2 GM/DL Albumin 3.9 3.2-4.5 GM/DL Urine Color YELLOW Urine Clarity CLEAR Urine pH 6.5 5-9 Urine Specific [place] 1.010 L 1.016-1.022 Urine Protein NEGATIVE NEGATIVE Urine Glucose (UA) NEGATIVE NEGATIVE Urine Ketones NEGATIVE NEGATIVE Urine Nitrite NEGATIVE NEGATIVE Urine Bilirubin NEGATIVE NEGATIVE Urine Urobilinogen NORMAL NORMAL MG/DL Urine Leukocyte Esterase 2+ H NEGATIVE Urine RBC (Auto) NEGATIVE NEGATIVE Urine RBC NONE /HPF Urine WBC 10-25 H /HPF Urine Squamous Epithelial Cells 2-5 /HPF Urine Crystals NONE /LPF Urine Bacteria FEW H /HPF Urine Casts NONE /LPF Urine Mucus NEGATIVE /LPF Urine Culture Indicated YES My Orders Orders - REAL MUÑOZ APRN Cbc With Automated Diff (04/24/17 21:53) Ua Culture If Indicated (04/24/17 21:53) Hs C Reactive Protein (04/24/17 21:53) Comprehensive Metabolic Panel (04/24/17 21:53) Urine Culture (04/24/17 22:33) Ciprofloxacin Tablet (Cipro Tablet) (04/24/17 23:00) Vital Signs/I&O Vital Sign - Last 12Hours 04/24/17 21:32 Temp 98.4 Pulse 94 Resp 20 B/P (MAP) 134/86 Pulse Ox 96 O2 Delivery Room Air Blood Pressure Mean: 102 Departure Communication Progress Notes Patient reports black stools but refuses digital rectal exam to allow for Hemoccult testing of stools. She also states she would be unable to provide us with a stool sample. She is upset when IV is not started. Impression Impression: Primary Impression: Chronic abdominal pain Additional Impression: Urinary tract infection Disposition: HOME, SELF-CARE Condition: Stable Departure-Patient Inst. Decision time for Depature: 23:16 Referrals: ROSANGELA ARMAS DO (PCP) Primary Care Physician Patient Instructions: Urinary Tract Infection, Adult (DC) Add. Discharge Instructions: 1. Follow-up with gastroenterology at next week 2. Medication as directed 3. All discharge instructions reviewed with patient and/or family. Voiced understanding. Scripts Metronidazole (Flagyl) 500 Mg Tablet 500 MG PO TID, #21 TAB Prov: REAL MUÑOZ SAP FICO BUSINESS ANALYST 04/24/17 Ciprofloxacin HCl (Cipro) 500 Mg Tablet 500 MG PO BID, #14 TAB Prov: REAL MUÑOZ SAP FICO BUSINESS ANALYST 04/24/17 REAL MUÑOZ SAP FICO BUSINESS ANALYST Apr 24, 2017 21:55
[2017-04-24 22:12] LABS: BASOPHILS # (AUTO) 0.1 10^3/uL (0.0-0.1); BASOPHILS % (AUTO) 0 % (0-10); EOSINOPHILS # (AUTO) 0.6 10^3/uL (0.0-0.3); EOSINOPHILS % (AUTO) 6 % (0-10); LYMPHOCYTES % (AUTO) 26 % (12-44); MEAN CORPUSCULAR HEMOGLOBIN 32 PG (25-34); MEAN CORPUSCULAR HGB CONC 34 G/DL (32-36); MEAN CORPUSCULAR VOLUME 92 FL (80-99); MEAN PLATELET VOLUME 8.6 FL (7.4-10.4); MONOCYTES # (AUTO) 0.8 X 10^3 (0.0-1.0); MONOCYTES % (AUTO) 7 % (0-12); NEUTROPHILS # (AUTO) 6.9 X 10^3 (1.8-7.8); NEUTROPHILS % (AUTO) 61 % (42-75); PLATELET COUNT 331 10^3/uL (130-400); RED BLOOD COUNT 4.11 10^6/uL (4.35-5.85); RED CELL DISTRIBUTION WIDTH 12.9 % (10.0-14.5); WHITE BLOOD COUNT 11.4 10^3/uL (4.3-11.0)
[2017-04-24 22:32] LABS: ALANINE AMINOTRANSFERASE 20 U/L (0-55); ALBUMIN 3.9 GM/DL (3.2-4.5); ANION GAP 13 MMOL/L (5-14); ASPARTATE AMINO TRANSFERASE 18 U/L (5-34); BILIRUBIN,TOTAL 0.4 MG/DL (0.1-1.0); BLOOD UREA NITROGEN 6 MG/DL (7-18); BUN/CREATININE RATIO 8; CALCIUM 9.1 MG/DL (8.5-10.1); CARBON DIOXIDE 21 MMOL/L (21-32); CHLORIDE 109 MMOL/L (98-107); CREATININE SERUM 0.79 MG/DL (0.60-1.30); GFR ESTIMATED > 60; GLUCOSE 96 MG/DL (70-105); POTASSIUM 3.3 MMOL/L (3.6-5.0); SODIUM 143 MMOL/L (135-145); TOTAL PROTEIN 6.4 GM/DL (6.4-8.2); hs C REACTIVE PROTEIN 0.44 MG/DL (0.00-0.50)
[2017-04-24 22:40] LABS: BILIRUBIN,URINE NEGATIVE (NEGATIVE); KETONES,URINE NEGATIVE (NEGATIVE); LEUKOCYTE ESTERASE ,URINE 2+ (NEGATIVE); NITRITE,URINE NEGATIVE (NEGATIVE); PH,URINE 6.5 (5-9); PROTEIN,URINE NEGATIVE (NEGATIVE); UROBILINOGEN,URINE NORMAL (NORMAL)
[2017-04-24] MEDS ORDERED: CIPROFLOXACIN 500 MG (CIPRO) TABLET PO SCH (23:00)
[2017-04-24] MEDS ORDERED: CIPR-225 PO (23:17)
[2017-04-24] MEDS ORDERED: METR500T PO (23:17)
[2017-04-24 23:33] VITALS: BP 134/86
== END 2017-04-24 23:33 | disposition home or self-care (01) ==
LOC: EDUNIT# 21:26 → ER 21:27
DX: N39.0 Urinary tract infection, site not specified (principal); I10 Essential (primary) hypertension; F41.9 Anxiety disorder, unspecified; J45.909 Unspecified asthma, uncomplicated; F17.210 Nicotine dependence, cigarettes, uncomplicated; Z98.51 Tubal ligation status; Z90.710 Acquired absence of both cervix and uterus; Z90.49 Acquired absence of other specified parts of digestive tract; Z87.442 Personal history of urinary calculi; Z87.19 Personal history of other diseases of the digestive system
CPT/HCPCS: 36415; 80053; 81000; 85025; 86141; 87088; 99282

== ENCOUNTER 2017-04-27 18:55 | Inpatient (IN) | payer MEDICAID ==
[~2017-04-27] VITALS: Ht 160 cm; Wt 80.1 kg
[~2017-04-27 18:55] MED LIST changes: -DICY20TA10; +DICY20TA10 PO
[2017-04-27] MEDS ORDERED: LACTATED RINGERS 1,000 ML IV ONE (19:36)
[2017-04-27] MEDS ORDERED: PROMETHAZINE INJ 25 MG/ML (PHENERGAN) AMP IVP STA (19:36)
[2017-04-27] MEDS ORDERED: ONDANSETRON 4 MG/2 ML (SDV) Z0FRAN IVP ONE ×2 (19:45→21:45)
[2017-04-27 19:55] LABS: BILIRUBIN,URINE NEGATIVE (NEGATIVE); KETONES,URINE NEGATIVE (NEGATIVE); LEUKOCYTE ESTERASE ,URINE 2+ (NEGATIVE); NITRITE,URINE NEGATIVE (NEGATIVE); PH,URINE 6 (5-9); PROTEIN,URINE NEGATIVE (NEGATIVE); UROBILINOGEN,URINE NORMAL (NORMAL)
--- NOTE | 2017-04-27 19:56 | ED GI ---
General Chief Complaint: Abdominal/GI Problems Stated Complaint: NAUSEA, CROHNS Nursing Triage Note: PT COMPLAINS OF NAUSEA FOR THE PAST 3 HOURS. PT HASN'T VOMITED JUST BEEN NAUSEOUS. Sepsis Screen: No Definite Risk Source of Information: Patient, Old Records History of Present Illness Time Seen By Provider: 19:30 Initial Comments PT ARRIVES VIA POV FROM HOME PT STATES "I HAVE CROHN'S AND I FEEL LIKE I'M GONNA THROW UP AND MY ESOPHAGUS HURTS AND IT COMES UP IN MY THROAT AND I SWALLOW IT DOWN" --HAS HAD NAUSEA, NO VOMITING STATES "THIS HAPPENS EVERY DAY" BUT IS WORSE TODAY--STATES "I'VE BEEN HERE EVERY WEEK FOR THE LAST 3 WEEKS FOR THIS" --PT HAS HAD 5 VISITS FOR THIS OR ABDOMINAL PAIN SINCE 02/18/17--PT WITH MULTITUDE OF VISITS FOR THIS COMPLAINT/ CHRONIC ABDOMINAL PAIN AND VARIOUS PAIN COMPLAINTS. LAST VISIT HERE WAS 04/24/17 AND GIVEN RX'S FOR CIPRO AND FLAGYL--PT DID NOT FINISH. PT WAS ALSO OUT OF HER HYDROCODONE AT THAT TIME WELL. ALSO RECEIVED RX FOR MACROBID 04/13/17 AT PREVIOUS ER VISIT, WHICH PT STATES SHE DID NOT FINISH EITHER PT DID REFILL HER HYDROCODONE ON 04/22/17 FOR #42-A [address] DONE HERE WAS 08/25/2016 PT HAS MULTIPLE GI MEDICATIONS AND STATES SHE HAS BOTH ZOFRAN AND PHENERGAN AT HOME, BUT ONLY TOOK 1 ZOFRAN TODAY AT 1300, AND HAS NOT TAKEN HER OTHER REGULAR MEDICATION TODAY. PT HAD NORMAL BM TODAY--STOOLS ARE ALWAYS LOOSE NO KNOWN FEVER NO URINARY SYMPTOMS LAST LIQUID INTAKE WAS SIPS OF WATER ON THE WAY HERE ATE A SANDWICH 3 HOURS AGO AND SYMPTOMS WORSEN HAS CHRONIC RLQ PAIN, BUT IS NOT MAIN COMPLAINT TODAY--MAINLY C/O NAUSEA LAST SAW HER GI DR AT 3 WEEKS AGO, NO CHANGE IN TREATMENT LAST COLONOSCOPY 1 YEAR AGO, AND NO OTHERS SCHEDULED / PLANNED FOR THE FUTURE PCP: DR. ARMAS Allergies and Home Medications Allergies Coded Allergies: NSAIDS (Non-Steroidal Anti-Inflamma (Verified Allergy, Intermediate, ) Penicillins (Verified Allergy, Mild, HIVES, 02/22/09) penicillin V (Unverified Allergy, Mild, 02/24/09) Sulfa (Sulfonamide Antibiotics) (Verified Allergy, Unknown, 01/17/14) BREAK OUT IN A RED RASH WITH VOMITING ketorolac tromethamine (Unverified Allergy, Unknown, 01/17/14) naproxen (Unverified Allergy, Unknown, 01/17/14) Uncoded Allergies: PCN (Allergy, Mild, 05/01/09) ANTI-INFLAMMATORY (Allergy, Unknown, 01/17/14) Home Medications Cefuroxime Axetil 250 Mg Tablet, 250 MG PO BID, #10 Prescribed by: REAL MUÑOZ on 03/19/172113 Ciprofloxacin HCl 500 Mg Tablet, 500 MG PO BID, #14 Prescribed by: REAL MUÑOZ on 04/24/17 2317 Dicyclomine HCl 20 Mg Tablet, #90 (Reported) Famotidine 20 Mg Tablet, 20 MG PO BID, #60 Ref 0 Prescribed by: IGNACIO SHIELDS on 09/12/16 1647 Hydrocodone/Acetaminophen 1 Each Tablet, 1 EACH PO Q4H PRN for PAIN, #20 Ref 0 Prescribed by: IGNACIO SHIELDS on 08/26/16 1946 Loratadine 10 Mg Capsule, 10 MG PO DAILY, (Reported) Mesalamine 500 Mg Capsule.er, 1,000 MG PO BID, (Reported) TAKES 2 (500MG) CAPSULES Metronidazole 500 Mg Tablet, 500 MG PO TID, #21 Prescribed by: REAL MUÑOZ on 04/24/172316 Nitrofurantoin Monohyd/M-Cryst 100 Mg Capsule, 1 TAB PO BID, #6 Ref 0 Prescribed by: IGNACIO SHIELDS on 04/12/172246 Omeprazole 40 Mg Capsule.dr, 40 MG PO DAILY, #30 (Reported) Ondansetron 8 Mg Tab.rapdis, 8 MG PO Q6H PRN for NAUSEA/VOMITING-1ST LINE, #10 Ref 0 Prescribed by: IGNACIO SHIELDS on 04/12/172230 Prednisone 10 Mg Tab, 10 MG PO UD, #50 Ref 0 40 mg po daily x5d, then 30 mg po daily x5d, then 20 mg po daily x5d, then 10 mg po daily x5d. Prescribed by: IGNACIO SHIELDS on 04/12/172230 Review of Systems Constitutional: no symptoms reported EENTM: No Symptoms Reported Respiratory: No Symptoms Reported Cardiovascular: No Symptoms Reported Gastrointestinal: See HPI, Abdominal Pain (RLQ), Denies Constipated, Diarrhea ( STOOLS ALWAYS LOOSE), Nausea, Poor Appetite, Poor Fluid Intake, Denies Vomiting Genitourinary: No Symptoms Reported Musculoskeletal: no symptoms reported Skin: no symptoms reported Psychiatric/Neurological: No Symptoms Reported Endocrine: No Symptoms Reported Hematologic/Lymphatic: No Symptoms Reported Past Agavghr-Bcvwyg-Xkyhis Hx Patient Social History Alcohol Use: Occasionally Uses Recreational Drug Use: No Smoking Status: Current Everyday Smoker (1 PPD) Type Used: Cigarettes 2nd Hand Smoke Exposure: Yes Recent Foreign Travel: No Contact w/Someone Who Travel: No Recent Infectious Disease Expo: No Recent Hopitalizations: No Immunizations Up To Date Tetanus Booster (TDap): Less than 5yrs Date of Pneumonia Vaccine: Nov 04, 2010 Date of Influenza Vaccine: Jul 12, 2011 Seasonal Allergies Seasonal Allergies: Yes Surgeries HX Surgeries: Yes (ZAMBRANO/SKIN GRAFT, BOWEL RESECTION X 2; X 2; NASAL FX/REPAIR; HYST/BSO; RIGHT HIP) Surgeries: Abdominal, Appendectomy, Bowel Surgery, Section, Gallbladder, Hysterectomy, Orthopedic, 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 Respiratory Hx Respiratory Disorders: Yes Respiratory Disorders: Asthma Cardiovascular Hx Cardiac Disorders: Yes Cardiac Disorders: Hypertension Neurological Hx Neurological Disorders: No Reproductive System Hx Reproductive Disorders: Yes (PCOS) Sexually Transmitted Disease: No 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, 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 Genitourinary Hx Genitourinary Disorders: Yes Genitourinary Disorders: Kidney Stones Gastrointestinal Hx Gastrointestinal Disorders: Yes (chronic abdominal pain, nausea, vomiting, and diarrhea) Gastrointestinal Disorders: Gastroesophageal Reflux, Crohns Disease, Pancreatitis, Ulcer Musculoskeletal Hx Musculoskeletal Disorders: Yes (WRIST PAIN; LOWER BACK/HIPS/SI JOINT PAIN) Musculoskeletal Disorders: Back Injury, Chronic Back Pain Endocrine Hx Endocrine Disorders: No HEENT HX ENT Disorders: No Cancer Hx Cancer: No Psychosocial Hx Psychiatric Problems: Yes Behavioral Health Disorders: Anxiety Integumentary HX Skin/Integumentary Disorder: No Blood Transfusions Hx Blood Disorders: No Adverse Reaction to a Blood Tr: No Family Medical History Family Medial History: Family history: Diabetes mellitus 19 FATHER 19 MOTHER G8 SISTER Physical Exam Vital Signs VS - Last 72 Hours, by Label 04/27/17 19:10 Temp 99.0 Pulse 74 Resp 20 B/P (MAP) 147/102 Pulse Ox 97 O2 Delivery Room Air Capillary Refill : Less Than 3 Seconds General Appearance: WD/WN, no apparent distress, other (PT LAUGHING WITH FEMALE IN ROOM, AND TEXTING ON PHONE WHEN I ENTER. THEN SHE IMMEDIATELY STOPS AND BECOMES VERY DRAMATIC AND HOSTILE AND DOES NOT MAKE EYE CONTACT. PT AMBULATED INTO ER WITHOUT DIFFICULTY, BUT ON EXAM, MOVES VERY SLOWLY AND DRAMATICALLY AND WANTS FRIEND TO HELP HER OUT OF BED AND WALK TO BATHROOM. ) HEENT: PERRL/EOMI Neck: normal inspection Respiratory: normal breath sounds, no respiratory distress, no accessory muscle use Cardiovascular: regular rate, rhythm, no murmur Gastrointestinal: normal bowel sounds, soft, no organomegaly, no pulsatile mass , No distended, No guarding, No rebound, tenderness (MARKED TENDERNESS IN RLQ), No hernia, No mass Extremities: normal inspection, no pedal edema, no calf tenderness, normal capillary refill Back: normal inspection, no CVA tenderness, no vertebral tenderness Neurologic/Psychiatric: general machinist II-XII nml as tested, no motor/sensory deficits, alert, oriented x 3 Skin: normal color, warm/dry, tattoos/piercings (EXTENSIVE TATTOOS AND PIERCINGS--NOSE, LIP AND CHIN PIERCED) Progress/Results/Core Measures Results/Orders Lab Results Laboratory Tests Test 04/27/17 19:45 04/27/17 20:05 Range/Units Urine Color YELLOW Urine Clarity CLEAR Urine pH 6 5-9 Urine Specific [place] 1.020 1.016-1.022 Urine Protein NEGATIVE NEGATIVE Urine Glucose (UA) NEGATIVE NEGATIVE Urine Ketones NEGATIVE NEGATIVE Urine Nitrite NEGATIVE NEGATIVE Urine Bilirubin NEGATIVE NEGATIVE Urine Urobilinogen NORMAL NORMAL MG/DL Urine Leukocyte Esterase 2+ H NEGATIVE Urine RBC (Auto) NEGATIVE NEGATIVE Urine RBC NONE /HPF Urine WBC 0-2 /HPF Urine Squamous Epithelial Cells 5-10 /HPF Urine Renal Epithelial Cells NONE /HPF Urine Crystals NONE /LPF Urine Bacteria NEGATIVE /HPF Urine Casts NONE /LPF Urine Mucus NEGATIVE /LPF Urine Culture Indicated NO White Blood Count 11.5 H 4.3-11.0 10^3/uL Red Blood Count 3.72 L 4.35-5.85 10^6/uL Hemoglobin 11.6 11.5-16.0 G/DL Hematocrit 35 35-52 % Mean Corpuscular Volume 94 80-99 FL Mean Corpuscular Hemoglobin 31 25-34 PG Mean Corpuscular Hemoglobin Concent 33 32-36 G/DL Red Cell Distribution Width 12.9 10.0-14.5 % Platelet Count 323 130-400 10^3/uL Mean Platelet Volume 8.9 7.4-10.4 FL Neutrophils (%) (Auto) 66 42-75 % Lymphocytes (%) (Auto) 23 12-44 % Monocytes (%) (Auto) 6 0-12 % Eosinophils (%) (Auto) 5 0-10 % Basophils (%) (Auto) 0 0-10 % Neutrophils # (Auto) 7.5 1.8-7.8 X 10^3 Lymphocytes # (Auto) 2.7 1.0-4.0 X 10^3 Monocytes # (Auto) 0.7 0.0-1.0 X 10^3 Eosinophils # (Auto) 0.5 H 0.0-0.3 10^3/uL Basophils # (Auto) 0.0 0.0-0.1 10^3/uL Sodium Level 141 135-145 MMOL/L Potassium Level 4.9 3.6-5.0 MMOL/L Chloride Level 110 H 98-107 MMOL/L Carbon Dioxide Level 20 L 21-32 MMOL/L Anion Gap 11 5-14 MMOL/L Blood Urea Nitrogen 5 L 7-18 MG/DL Creatinine 0.79 0.60-1.30 MG/DL Estimat Glomerular Filtration Rate > 60 BUN/Creatinine Ratio 6 Glucose Level 102 70-105 MG/DL Calcium Level 8.9 8.5-10.1 MG/DL Total Bilirubin 0.5 0.1-1.0 MG/DL Aspartate Amino Transf (AST/SGOT) 42 H 5-34 U/L Alanine Aminotransferase (ALT/SGPT) 26 0-55 U/L Alkaline Phosphatase 79 40-136 U/L Total Protein 6.6 6.4-8.2 GM/DL Albumin 3.7 3.2-4.5 GM/DL Amylase Level 95 25-125 U/L Lipase 203 H 8-78 U/L My Orders Orders - JOSE ASH DO Saline Lock/Iv-Start (04/27/17 19:36) Amylase (04/27/17 19:36) Cbc With Automated Diff (04/27/17 19:36) Comprehensive Metabolic Panel (04/27/17 19:36) Lipase (04/27/17 19:36) Ua Culture If Indicated (04/27/17 19:36) Saline Lock/Iv-Start (04/27/17 19:36) Promethazine Injection (Phenergan Injec (04/27/17 19:36) Ondansetron Injection (Zofran Injectio (04/27/17 19:45) Saline Lock/Iv-Start (04/27/17 19:36) Lactated Ringers (Lr 1000 Ml Iv Solution (04/27/17 19:36) Ct Abdomen/Pelvis W (04/27/17 20:36) Iohexol Injection (Omnipaque 350 Mg/Ml 1 (04/27/17 21:00) Ns (Ivpb) (Sodium Chloride 0.9% Ivpb Bag (04/27/17 21:00) Scopolamine Patch (Transderm-Scop Patch) (04/27/17 21:45) Promethazine Injection (Phenergan Injec (04/27/17 21:45) Ondansetron Injection (Zofran Injectio (04/27/17 21:45) Medications Given in ED Current Medications Medications Dose Ordered Sig/Dominga Route Start Time Stop Time Status Last Admin Dose Admin Iohexol 100 ml ONCE ONCE IV 04/27/17 21:00 04/27/17 22:07 DC 04/27/17 20:58 100 ML Lactated Ringer's 1,000 ml @ 0 mls/hr Q0M ONCE IV 04/27/17 19:36 04/27/17 19:38 DC 04/27/17 20:09 1,000 MLS/HR Ondansetron HCl 4 mg ONCE ONCE IVP 04/27/17 19:45 04/27/17 19:46 DC 04/27/17 20:08 4 MG Ondansetron HCl 8 mg ONCE ONCE IVP 04/27/17 21:45 04/27/17 21:46 DC 04/27/17 21:45 8 MG Promethazine HCl 50 mg ONCE ONCE IVP 04/27/17 21:45 04/27/17 21:46 DC 04/27/17 21:52 50 MG Scopolamine 1.5 mg ONCE ONCE TD 04/27/17 21:45 04/27/17 21:46 DC 04/27/17 21:47 1.5 MG Sodium Chloride 100 ml ONCE ONCE IV 04/27/17 21:00 04/27/17 22:07 DC 04/27/17 20:58 80 ML Vital Signs/I&O Vital Sign - Last 12Hours 04/27/17 19:10 Temp 99.0 Pulse 74 Resp 20 B/P (MAP) 147/102 Pulse Ox 97 O2 Delivery Room Air Blood Pressure Mean: 117 Progress Note : Progress Note SYMPTOMS IMPROVED WITH MEDICATIONS NO DETERIORATION IN PT'S CONDITION DURING ER STAY Diagnostic Imaging Comments CT ABDOMEN/PELVIS--SIGNIFICANT MUCOSAL THICKENING/EDEMA AND INFLAMMATORY CHANGES TO TERMINAL ILEUM, AND DESCENDING AND SIGMOID COLON--COLITIS AND ENTERITIS--PER RADIOLOGIST REPORT VIA PHONE AT 2139 Reviewed: Reviewed by Me, Discussed w/Radiologist Departure Communication Progress Notes 2144--SPOKE WITH DR. ARMAS, ACCEPTS PT FOR ADMIT 2145--SPOKE WITH DR. MCCARTY, FOR SURGERY CONSULT Impression Impression: Primary Impression: Crohn's disease involving terminal ileum Additional Impressions: Crohn's colitis Exacerbation of Crohn's disease Disposition: ADMITTED INPATIENT Condition: Improved Decision to Admit Reason: Admit from ER (General) Decision to Admit/Date: Apr 27, 2017 Time/Decision to Admit Time: 21:45 Departure-Patient Inst. Referrals: ROSANGELA ARMAS DO (PCP/Family) Primary Care Physician JOSE ASH DO Apr 27, 2017 19:56
[2017-04-27 20:21] LABS: WBC,URINE 0-2 /HPF
[2017-04-27 20:33] LABS: BASOPHILS % (AUTO) 0 % (0-10); EOSINOPHILS # (AUTO) 0.5 10^3/uL (0.0-0.3); EOSINOPHILS % (AUTO) 5 % (0-10); LYMPHOCYTES # (AUTO) 2.7 X 10^3 (1.0-4.0); LYMPHOCYTES % (AUTO) 23 % (12-44); MEAN CORPUSCULAR HEMOGLOBIN 31 PG (25-34); MEAN CORPUSCULAR HGB CONC 33 G/DL (32-36); MEAN CORPUSCULAR VOLUME 94 FL (80-99); MEAN PLATELET VOLUME 8.9 FL (7.4-10.4); MONOCYTES # (AUTO) 0.7 X 10^3 (0.0-1.0); MONOCYTES % (AUTO) 6 % (0-12); NEUTROPHILS # (AUTO) 7.5 X 10^3 (1.8-7.8); NEUTROPHILS % (AUTO) 66 % (42-75); PLATELET COUNT 323 10^3/uL (130-400); RED BLOOD COUNT 3.72 10^6/uL (4.35-5.85); RED CELL DISTRIBUTION WIDTH 12.9 % (10.0-14.5); WHITE BLOOD COUNT 11.5 10^3/uL (4.3-11.0)
[2017-04-27 20:49] LABS: ALANINE AMINOTRANSFERASE 26 U/L (0-55); ALBUMIN 3.7 GM/DL (3.2-4.5); AMYLASE 95 U/L (25-125); ANION GAP 11 MMOL/L (5-14); ASPARTATE AMINO TRANSFERASE 42 U/L (5-34); BILIRUBIN,TOTAL 0.5 MG/DL (0.1-1.0); BLOOD UREA NITROGEN 5 MG/DL (7-18); BUN/CREATININE RATIO 6; CALCIUM 8.9 MG/DL (8.5-10.1); CARBON DIOXIDE 20 MMOL/L (21-32); CHLORIDE 110 MMOL/L (98-107); CREATININE SERUM 0.79 MG/DL (0.60-1.30); GFR ESTIMATED > 60; GLUCOSE 102 MG/DL (70-105); LIPASE 203 U/L (8-78); POTASSIUM 4.9 MMOL/L (3.6-5.0); SODIUM 141 MMOL/L (135-145); TOTAL PROTEIN 6.6 GM/DL (6.4-8.2)
[2017-04-27] MEDS ORDERED: IOHEXOL 350 MG/ML 100 ML (OMNIPAQUE 350) VIAL IV ONE (21:00)
[2017-04-27] MEDS ORDERED: NS 100 ML (IVPB) BAG IV ONE (21:00)
[2017-04-27] MEDS ORDERED: SCOPOLAMINE 1.5 MG (TRANSDERM-SCOP) PATCH TD ONE (21:45)
[2017-04-27] MEDS ORDERED: PROMETHAZINE INJ 25 MG/ML (PHENERGAN) AMP IVP ONE (21:45)
--- NOTE | 2017-04-27 21:47 | Diagnostic Imaging Report ---
PROCEDURE: CT abdomen and pelvis with contrast. TECHNIQUE: Multiple contiguous axial images were obtained through the abdomen and pelvis after administration of intravenous contrast. INDICATION: Abdominal pain. History of Crohn's disease. The previous CT abdomen/pelvis exam of 08/25/16 noted that the terminal ileum was abnormal. The prior study also revealed postsurgical changes consistent with partial resection of both the cecum and terminal ileum. On this exam the anastomosis of the ascending colon and small bowel appears to be intact. However, there is considerable thickening of the wall of the terminal ileum and the remainder of the ileum, as well. This appearance does suggest that there is an element of enteritis present and is most likely related to the patient's underlying diagnosis of Crohn's disease. Furthermore, there is also thickening of the wall of the descending and sigmoid colon indicating that there is an element of colitis present, as well. There is no mass or abscess identified. The liver is homogeneous and not enlarged. The spleen, pancreas, adrenals, kidneys, aorta and inferior vena cava show no sign of an acute abnormality. The stomach is filled with particulate matter and difficult to assess. As noted on the prior exam, the gallbladder and the uterus are surgically absent. The urinary bladder is grossly unremarkable. There is a retro umbilical fat containing hernia. There is no incarceration or obstruction of the bowel in this area. The bone windows show no sign of a fracture or of a destructive lesion. The lung bases are generally clear. IMPRESSION: 1. There is thickening of the wall of the terminal ileum and of much of the remainder of the ileum. This appearance is most likely due to enteritis and is probably secondary to the patient's diagnosis of Crohn's disease. There is also extensive colitis of the sigmoid and descending colon. There is no mass or abscess identified however. 2. No other acute abnormality of the abdomen or pelvis is identified. 3. The gallbladder and the uterus are surgically absent. 4. These results were discussed with Dr. Krause in the ER by Dr. Yost prior to dictation. Dictated by: Dictated on workstation # [id number]
[2017-04-27] MEDS ORDERED: fentaNYL INJECTION 100 MCG/2 ML AMP IVP STA (21:50)
[2017-04-27] MEDS ORDERED: metroNIDAZOLE 500MG/100ML IVPB 100 ML IV ONE (22:00)
[2017-04-27] MEDS ORDERED: methylPREDNISolone 125 MG (Solu-MEDROL) VIAL IVP ONE (22:00)
[2017-04-27 23:45] VITALS: BP 108/69
[2017-04-28] VITALS (7 sets, daily range): BP systolic 101–123; BP diastolic 65–83
[2017-04-28] MEDS ORDERED: SCOPOLAMINE 1.5 MG (TRANSDERM-SCOP) PATCH TOP SCH (01:00)
[2017-04-28] MEDS: D5 1/2 NS W/KCL 20 MEQ/L 1,000 ML IV SCH ×3 (01:24→16:55)
[2017-04-28] MEDS: CIPROFLOXACIN 400 MG/D5W 200 ML (PRE-MIX) IV SCH ×2 (01:24→13:26)
[2017-04-28 05:05] LABS: BASOPHILS % (AUTO) 0 % (0-10); EOSINOPHILS % (AUTO) 0 % (0-10); LYMPHOCYTES # (AUTO) 0.8 X 10^3 (1.0-4.0); LYMPHOCYTES % (AUTO) 9 % (12-44); MEAN CORPUSCULAR HEMOGLOBIN 31 PG (25-34); MEAN CORPUSCULAR HGB CONC 34 G/DL (32-36); MEAN CORPUSCULAR VOLUME 92 FL (80-99); MEAN PLATELET VOLUME 8.9 FL (7.4-10.4); MONOCYTES # (AUTO) 0.1 X 10^3 (0.0-1.0); MONOCYTES % (AUTO) 1 % (0-12); NEUTROPHILS # (AUTO) 8.9 X 10^3 (1.8-7.8); NEUTROPHILS % (AUTO) 91 % (42-75); PLATELET COUNT 346 10^3/uL (130-400); RED CELL DISTRIBUTION WIDTH 12.7 % (10.0-14.5); WHITE BLOOD COUNT 9.8 10^3/uL (4.3-11.0)
[2017-04-28 05:25] LABS: ALANINE AMINOTRANSFERASE 22 U/L (0-55); ALBUMIN 3.9 GM/DL (3.2-4.5); AMYLASE 62 U/L (25-125); ANION GAP 12 MMOL/L (5-14); ASPARTATE AMINO TRANSFERASE 18 U/L (5-34); BILIRUBIN,TOTAL 0.4 MG/DL (0.1-1.0); BLOOD UREA NITROGEN 8 MG/DL (7-18); BUN/CREATININE RATIO 10; CALCIUM 9.1 MG/DL (8.5-10.1); CARBON DIOXIDE 22 MMOL/L (21-32); CHLORIDE 110 MMOL/L (98-107); CREATININE SERUM 0.77 MG/DL (0.60-1.30); GFR ESTIMATED > 60; GLUCOSE 167 MG/DL (70-105); LIPASE 49 U/L (8-78); POTASSIUM 3.1 MMOL/L (3.6-5.0); SODIUM 144 MMOL/L (135-145); TOTAL PROTEIN 6.3 GM/DL (6.4-8.2)
[2017-04-28 05:53] LABS: BAND NEUTROPHILS 10 %; LYMPHOCYTES % (MANUAL) 11 %; NEUTROPHILS % (MANUAL) 79 %
[2017-04-28] MEDS: metroNIDAZOLE 500 MG/100 ML IVPB (PRE-MIX) IV SCH ×4 (06:12→23:59)
[2017-04-28] MEDS: methylPREDNISolone 125 MG (Solu-MEDROL) VIAL IV SCH ×4 (06:12→23:59)
[2017-04-28] MEDS: ONDANSETRON 4 MG/2 ML (SDV) Z0FRAN IV PRN ×3 (07:31→23:59)
[2017-04-28] MEDS: fentaNYL INJECTION 100 MCG/2 ML AMP IV PRN ×3 (07:32→13:41)
[2017-04-28] MEDS ORDERED: KCL 20 MEQ TAB (K-DUR) PO NR (08:25)
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
--- NOTE | 2017-04-28 08:51 | Consultation ---
History of Present Illness History of Present Illness Patient Consulted On(fatimah/time) 04/28/17 08:45 Time Seen by Provider: 08:24 History of Present Illness This is a 37 year old female patient who came out to the emergency room yesterday complaining of RLQ abd pain. She reports that this Crohn's flair up started 3 days ago. She states its worse with food and nothing make it better. She reports nausea but no vomiting. 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 Patient has history of Crohn's disease and has had small bowel resection in the past. Other surgeries include complete hysterectomy. Allergies and Home Medications Allergies Coded Allergies: NSAIDS (Non-Steroidal Anti-Inflamma (Verified Allergy, Intermediate, ) Penicillins (Verified Allergy, Mild, HIVES, 02/22/09) penicillin V (Unverified Allergy, Mild, 02/24/09) Sulfa (Sulfonamide Antibiotics) (Verified Allergy, Unknown, 01/17/14) BREAK OUT IN A RED RASH WITH VOMITING ketorolac tromethamine (Unverified Allergy, Unknown, 01/17/14) naproxen (Unverified Allergy, Unknown, 01/17/14) Uncoded Allergies: PCN (Allergy, Mild, 05/01/09) ANTI-INFLAMMATORY (Allergy, Unknown, 01/17/14) Home Medications Ciprofloxacin HCl 500 Mg Tablet, 500 MG PO BID for 7 Days, (Reported) 7 DAY THERAPY FILLED 04-25-17 Dicyclomine HCl 20 Mg Tablet, 20 MG PO TID, (Reported) Famotidine 20 Mg Tablet, 20 MG PO BID, (Reported) Hydrocodone/Acetaminophen 1 Each Tablet, 1 TAB PO TID PRN for PAIN-MODERATE, ( Reported) Loratadine 10 Mg Tablet, 10 MG PO DAILY, (Reported) Mesalamine 500 Mg Capsule.er, 1,000 MG PO DAILY, (Reported) TAKES 2 (500MG) CAPSULES Metronidazole 500 Mg Tablet, 500 MG PO TID for 7 Days, (Reported) 7 DAY THERAPY FILLED 04-25-17 Omeprazole 40 Mg Capsule.dr, 40 MG PO DAILY, (Reported) Ondansetron 8 Mg Tab.rapdis, 8 MG PO Q6H PRN for NAUSEA/VOMITING-1ST LINE, ( Reported) Past Ghlypsg-Lhcwdm-Kitvyz Hx Patient Social History Alcohol Use: Denies Use Recreational Drug Use: No Smoking Status: Current Everyday Smoker Type Used: Cigarettes 2nd Hand Smoke Exposure: Yes Recent Foreign Travel: No Contact w/Someone Who Travel: No Recent Infectious Disease Expo: No Recent Hopitalizations: No Physical Abuse Screen: No Sexual Abuse: No Immunizations Up To Date Tetanus Booster (TDap): Less than 5yrs PED Vaccines UTD: Yes Date of Pneumonia Vaccine: Nov 04, 2010 Date of Influenza Vaccine: Jul 12, 2011 Seasonal Allergies Seasonal Allergies: Yes Surgeries HX Surgeries: Yes (ZAMBRANO/SKIN GRAFT, BOWEL RESECTION X 2; X 2; NASAL FX/REPAIR; HYST/BSO; RIGHT HIP) Surgeries: Abdominal, Appendectomy, Bowel Surgery, Section, Gallbladder, Hysterectomy, Orthopedic, 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 Respiratory Hx Respiratory Disorders: Yes Respiratory Disorders: Asthma Cardiovascular Hx Cardiac Disorders: Yes Cardiac Disorders: Hypertension Neurological Hx Neurological Disorders: No Reproductive System Hx Reproductive Disorders: Yes (PCOS) Sexually Transmitted Disease: No HIV/AIDS: No 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, 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 Dis 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 Genitourinary Hx Genitourinary Disorders: Yes Genitourinary Disorders: Kidney Stones Gastrointestinal Hx Gastrointestinal Disorders: Yes (chronic abdominal pain, nausea, vomiting, and diarrhea) Gastrointestinal Disorders: Gastroesophageal Reflux, Crohns Disease, Pancreatitis, Ulcer Musculoskeletal Hx Musculoskeletal Disorders: Yes (WRIST PAIN; LOWER BACK/HIPS/SI JOINT PAIN) Musculoskeletal Disorders: Back Injury, Chronic Back Pain Endocrine Hx Endocrine Disorders: No HEENT HX ENT Disorders: No Cancer Hx Cancer: No Psychosocial Hx Psychiatric Problems: Yes Behavioral Health Disorders: Anxiety Integumentary HX Skin/Integumentary Disorder: No Blood Transfusions Hx Blood Disorders: No Adverse Reaction to a Blood Tr: No Family Medical History Significant Family History: No Pertinent Family Hx Family Medial History: Family history: Diabetes mellitus 19 FATHER 19 MOTHER G8 SISTER Review of Systems-General Constitutional: malaise, weakness Respiratory: no symptoms reported Cardiovascular: no symptoms reported Gastrointestinal: RLQ, see HPI, diarrhea, nausea Genitourinary: no symptoms reported Musculoskeletal: no symptoms reported Skin: no symptoms reported Psychiatric/Neurological: No Symptoms Reported Physical Exam-General Problems Physical Exam Vital Signs Vital Sign - Last 12Hours 04/27/17 19:10 Temp 99.0 Pulse 74 Resp 20 B/P (MAP) 147/102 Pulse Ox 97 O2 Delivery Room Air Capillary Refill : Less Than 3 Seconds General Appearance: WD/WN Neck: supple Respiratory: chest non-tender, no respiratory distress, no accessory muscle use Cardiovascular: regular rate, rhythm Gastrointestinal: soft, tenderness (RLQ) Extremities: normal range of motion, no pedal edema, no calf tenderness Neurologic/Psychiatric: other (Patient sleepy as she had just recieved some pain medication. ) Skin: normal color, warm/dry Data Review Labs Laboratory Tests 04/27/17 19:45: Urine Color YELLOW, Urine Clarity CLEAR, Urine pH 6, Urine Specific [place] 1.020, Urine Protein NEGATIVE, Urine Glucose (UA) NEGATIVE, Urine Ketones NEGATIVE, Urine Nitrite NEGATIVE, Urine Bilirubin NEGATIVE, Urine Urobilinogen NORMAL, Urine Leukocyte Esterase 2+H, Urine RBC (Auto) NEGATIVE, Urine RBC NONE , Urine WBC 0-2, Urine Squamous Epithelial Cells 5-10, Urine Renal Epithelial Cells NONE, Urine Crystals NONE, Urine Bacteria NEGATIVE, Urine Casts NONE, Urine Mucus NEGATIVE, Urine Culture Indicated NO, Urine Opiates Screen POSITIVEH , Urine Oxycodone Screen NEGATIVE, Urine Methadone Screen NEGATIVE, Urine Propoxyphene Screen NEGATIVE, Urine Barbiturates Screen NEGATIVE, Ur Tricyclic Antidepressants Screen NEGATIVE, Urine Phencyclidine Screen NEGATIVE, Urine Amphetamines Screen NEGATIVE, Urine Methamphetamines Screen NEGATIVE, Urine Benzodiazepines Screen NEGATIVE, Urine Cocaine Screen NEGATIVE, Urine Cannabinoids Screen NEGATIVE 04/27/17 20:05: White Blood Count 11.5H, Red Blood Count 3.72L, Hemoglobin 11.6, Hematocrit 35, Mean Corpuscular Volume 94, Mean Corpuscular Hemoglobin 31, Mean Corpuscular Hemoglobin Concent 33, Red Cell Distribution Width 12.9, Platelet Count 323, Mean Platelet Volume 8.9, Neutrophils (%) (Auto) 66, Lymphocytes (%) (Auto) 23, Monocytes (%) (Auto) 6, Eosinophils (%) (Auto) 5, Basophils (%) (Auto) 0, Neutrophils # (Auto) 7.5, Lymphocytes # (Auto) 2.7, Monocytes # (Auto) 0.7, Eosinophils # (Auto) 0.5H, Basophils # (Auto) 0.0, Sodium Level 141, Potassium Level 4.9, Chloride Level 110H, Carbon Dioxide Level 20L, Anion Gap 11, Blood Urea Nitrogen 5L, Creatinine 0.79, Estimat Glomerular Filtration Rate > 60, BUN/ Creatinine Ratio 6, Glucose Level 102, Calcium Level 8.9, Total Bilirubin 0.5, Aspartate Amino Transf (AST/SGOT) 42H, Alanine Aminotransferase (ALT/SGPT) 26, Alkaline Phosphatase 79, Total Protein 6.6, Albumin 3.7, Amylase Level 95, Lipase 203H 04/28/17 04:20: White Blood Count 9.8, Red Blood Count 4.30L, Hemoglobin 13.3, Hematocrit 40, Mean Corpuscular Volume 92, Mean Corpuscular Hemoglobin 31, Mean Corpuscular Hemoglobin Concent 34, Red Cell Distribution Width 12.7, Platelet Count 346, Mean Platelet Volume 8.9, Neutrophils (%) (Auto) 91H, Lymphocytes (%) (Auto) 9L , Monocytes (%) (Auto) 1, Eosinophils (%) (Auto) 0, Basophils (%) (Auto) 0, Neutrophils # (Auto) 8.9H, Lymphocytes # (Auto) 0.8L, Monocytes # (Auto) 0.1, Eosinophils # (Auto) 0.0, Basophils # (Auto) 0.0, Sodium Level 144, Potassium Level 3.1L, Chloride Level 110H, Carbon Dioxide Level 22, Anion Gap 12, Blood Urea Nitrogen 8, Creatinine 0.77, Estimat Glomerular Filtration Rate > 60, BUN/ Creatinine Ratio 10, Glucose Level 167H, Calcium Level 9.1, Total Bilirubin 0.4 , Aspartate Amino Transf (AST/SGOT) 18, Alanine Aminotransferase (ALT/SGPT) 22, Alkaline Phosphatase 91, Total Protein 6.3L, Albumin 3.9, Amylase Level 62, Lipase 49, Neutrophils % (Manual) 79, Lymphocytes % (Manual) 11, Band Neutrophils 10, Blood Morphology Comment NORMAL Radiology NAME: YOSSI BLANDON [facility] REC#: [id number] PT STATUS: ADM IN : 1980 PHYSICIAN: JOSE KRAUSE DO ADMIT DATE: 04/27/17 Signed Date of Exam: 04/27/17 CT ABDOMEN/PELVIS W PROCEDURE: CT abdomen and pelvis with contrast. TECHNIQUE: Multiple contiguous axial images were obtained through the abdomen and pelvis after administration of intravenous contrast. INDICATION: Abdominal pain. History of Crohn's disease. The previous CT abdomen/pelvis exam of 08/25/16 noted that the terminal ileum was abnormal. The prior study also revealed postsurgical changes consistent with partial resection of both the cecum and terminal ileum. On this exam the anastomosis of the ascending colon and small bowel appears to be intact. However, there is considerable thickening of the wall of the terminal ileum and the remainder of the ileum, as well. This appearance does suggest that there is an element of enteritis present and is most likely related to the patient's underlying diagnosis of Crohn's disease. Furthermore, there is also thickening of the wall of the descending and sigmoid colon indicating that there is an element of colitis present, as well. There is no mass or abscess identified. The liver is homogeneous and not enlarged. The spleen, pancreas, adrenals, kidneys, aorta and inferior vena cava show no sign of an acute abnormality. The stomach is filled with particulate matter and difficult to assess. As noted on the prior exam, the gallbladder and the uterus are surgically absent. The urinary bladder is grossly unremarkable. There is a retro umbilical fat containing hernia. There is no incarceration or obstruction of the bowel in this area. The bone windows show no sign of a fracture or of a destructive lesion. The lung bases are generally clear. IMPRESSION: 1. There is thickening of the wall of the terminal ileum and of much of the remainder of the ileum. This appearance is most likely due to enteritis and is probably secondary to the patient's diagnosis of Crohn's disease. There is also extensive colitis of the sigmoid and descending colon. There is no mass or abscess identified however. 2. No other acute abnormality of the abdomen or pelvis is identified. 3. The gallbladder and the uterus are surgically absent. 4. These results were discussed with Dr. Krause in the ER by Dr. Yost prior to dictation. Assessment/Plan Assessment/Plan Assessment/Plan Crohn's Disease. CT scan revealed that there is thickening of the wall of the terminal ileum and of much of the remainder of the ileum. This appearance is most likely due to enteritis and is probably secondary to the patient's diagnosis of Crohn's disease. There is also extensive colitis of the sigmoid and descending colon. There is no mass or abscess identified however. Colitis NPO. Will will continue to monitor patient at this time. Pain control and Antibiotics. Mccarty-patient is a 37-year-old female with Crohn's who follows with Dr. Odonnell at [facility] she states. She saw him 3 weeks ago. Patient has had worsening of her Crohn's symptoms and having increasing abdominal pain. Patient states that her recent visit with her GI there discussing alternatives but has not made a complete decision on what to do yet. In the meantime patient had worsening abdominal pain over the last 3 days. She rates at an 8 out of 10. It's sharp in nature there is no radiation of the pain. Patient states that she has some loose stool but has not seen any bright red but it is dark. Patient states that eating makes the pain worse and she is also has nausea that worsens with eating she does not have any emesis. She denies any fever sweats chills shortness of breath or chest pain at this time. She had a CT scan demonstrating changes consistent with her Crohn's in the ileum and of the sigmoid colon and descending colon. Gen. patient's in no acute distress she is lying in bed Head is normocephalic atraumatic eyes nonicteric ears are patent mouth is moist trachea is midline Heart regular Lungs nonlabored breathing Abdomen soft some slight tenderness in the bilateral lower quadrants there is no guarding or rebounding no palpable masses no organomegaly Extremities nontender Normal mood and affect Alert and oriented Skin without rash Patient with Crohn's with flareup. Patient is on steroids and has been started on antibiotics of Cipro and Flagyl already. Would keep nothing by mouth. IV hydration. Would see how she continues to do with continued medical management. No surgical indications this time. Patient will need follow-up outpatient with GI. Patient currently on Pentasa which I think with increasing symptoms she may benefit from change but will defer that to GI. Clinical Quality Measures DVT/VTE Risk/Contraindication: Risk Factor Score Per Nursin RFS Level Per Nursing on Admit: 3=High Contraindications-Pharm: Other *list below* COLIN CISNEROS APRN Apr 28, 2017 08:50 FREDDY MCCARTY DO Apr 28, 2017 13:42
[2017-04-28] MEDS ORDERED: FAMO20TA5 PO (08:59)
[2017-04-28] MEDS ORDERED: METR500T21 PO (08:59)
[2017-04-28] MEDS ORDERED: ONDA8TAB9 PO (08:59)
[2017-04-28] MEDS ORDERED: LORA10TA7 PO (08:59)
[2017-04-28] MEDS ORDERED: CIPR500T4 PO (08:59)
[2017-04-28] MEDS ORDERED: PANTOPRAZOLE 40 MG/10 ML (PROTONIX) VIAL IV SCH (09:00)
[2017-04-28] MEDS ORDERED: HYDR-3820 PO (09:07)
[2017-04-28] MEDS ORDERED: NON-FORMULARY MEDICATION 1 EA EA (Dicyclomine HCl 20 MG) PO SCH ×2 (14:45→21:00)
[2017-04-28] MEDS: MESALAMINE 250 MG (PENTASA) CAP PO SCH (15:00)
[2017-04-28] MEDS: ENOXAPARIN 40 MG/0.4 ML (LOVENOX) SYR SC SCH ×2 (15:01→15:05)
[2017-04-28] MEDS: PROMETHAZINE INJ 25 MG/ML (PHENERGAN) AMP IV PRN (15:01)
--- OUTSIDE RECORDS SUMMARY | 2017-04-28 17:02 | XMS REPORT | Continuity of Care Document ---
Author Author [facility] Organization [facility] Address Unknown Phone Unavailable Care Team Providers Care Medication Tech Name Role Phone Naveed Lockhart PCP [phone] Source Comments Some departments are not documenting in the electronic medical record. If you do not see the information that you expected, contact Release of Information in the Health Information Management department at [phone] for further assistance in locating additional records.[facility] Active Allergies and Adverse Reactions Allergen Noted [...] 40 mg capsule DAILY BEFORE BREAKFAST 17 Mesalamine (PENTASA) 500 Take 2 Caps by mouth four 240 Cap 3 04/22/20 Active mg cpER times daily. 17 budesonide (ENTOCORT EC) Take 1 Cap [...] daily thereafter. Check lab in 12 weeks. Mesalamine 500 mg cpER Take 2 Caps by mouth 240 Cap 0 07/17/2004/21 Discontin twice daily. 16 17 ued PENTASA 500 mg cpER TAKE 2 CAPSULES BY MOUTH 240 Cap 0 10/12/20 Discontin TWICE DAILY 16 17 ued Active Problems Problem Noted Date Inadequate material resources 12/25/2014 Noncompliance 05/29/2014 Crohn's disease (HCC) 08/02/2012 Most Recent Encounters Date Type Specialty Providers Description 04/21/2017 Refill Gastroenterology Moncho Odonnell MD 04/21/2017 Refill Gastroenterology Barber Nguyen MD 04/19/2017 Refill Gastroenterology Barber Nguyen MD 03/19/2017 Telephone Gastroenterology Lalo Carrillo MD Abdominal pain 03/16/2017 [facility] Moncho Odonnell MD Crohn's disease, Encounter unspecified, with unspecified complications (HCC) 03/16/2017 Office Visit Gastroenterology Moncho Odonnell MD Crohn's disease with complication, unspecified gastrointestinal tract location (HCC) (Primary Dx) 03/12/2017 Telephone Gastroenterology Moncho Odonnell [...]
--- OUTSIDE RECORDS SUMMARY | 2017-04-28 17:25 | XMS REPORT | Continuity of Care Document ---
Author Author [facility] Organization [facility] Address Unknown Phone Unavailable Care Team Providers Care Pharmacy Clinical Coordinator Name Role Phone Naveed Lockhart PCP [phone] Source Comments Some departments are not documenting in the electronic medical record. If you do not see the information that you expected, contact Release of Information in the Health Information Management department at [phone] for further assistance in locating additional records.[facility] Active Allergies and Adverse Reactions Allergen [...] Gastroenterology Lalo Carrillo MD Abdominal pain 03/16/2017 [facility] Moncho Odonnell MD Crohn's disease, Encounter unspecified, [...]
[2017-04-28] MEDS: DICYCLOMINE 10 MG (BENTYL) CAP PO SCH (20:24)
[2017-04-28] MEDS: FAMOTIDINE 20 MG (PEPCID) TABLET PO SCH (20:24)
[2017-04-29 00:35] VITALS: BP 107/67
[2017-04-29] MEDS: CIPROFLOXACIN 400 MG/D5W 200 ML (PRE-MIX) IV SCH ×2 (01:33→13:21)
[2017-04-29] MEDS: PROMETHAZINE INJ 25 MG/ML (PHENERGAN) AMP IV PRN ×3 (01:51→18:12)
[2017-04-29 03:30] VITALS: BP 117/66
[2017-04-29] MEDS: D5 1/2 NS W/KCL 20 MEQ/L 1,000 ML IV SCH ×3 (04:01→23:21)
[2017-04-29] MEDS: metroNIDAZOLE 500 MG/100 ML IVPB (PRE-MIX) IV SCH ×4 (06:02→23:14)
[2017-04-29] MEDS: methylPREDNISolone 125 MG (Solu-MEDROL) VIAL IV SCH ×4 (06:03→23:14)
[2017-04-29] MEDS: ONDANSETRON 4 MG/2 ML (SDV) Z0FRAN IV PRN ×2 (06:03→16:06)
[2017-04-29] MEDS: PANTOPRAZOLE 40 MG (PROTONIX) TAB PO SCH (06:03)
[2017-04-29] MEDS: fentaNYL INJECTION 100 MCG/2 ML AMP IV PRN ×7 (06:04→23:21)
[2017-04-29 06:18] LABS: BASOPHILS % (AUTO) 0 % (0-10); EOSINOPHILS % (AUTO) 0 % (0-10); LYMPHOCYTES # (AUTO) 1.4 X 10^3 (1.0-4.0); LYMPHOCYTES % (AUTO) 8 % (12-44); MEAN CORPUSCULAR HEMOGLOBIN 31 PG (25-34); MEAN CORPUSCULAR HGB CONC 34 G/DL (32-36); MEAN CORPUSCULAR VOLUME 93 FL (80-99); MEAN PLATELET VOLUME 9.1 FL (7.4-10.4); MONOCYTES # (AUTO) 0.5 X 10^3 (0.0-1.0); MONOCYTES % (AUTO) 3 % (0-12); NEUTROPHILS % (AUTO) 89 % (42-75); PLATELET COUNT 351 10^3/uL (130-400); RED BLOOD COUNT 4.15 10^6/uL (4.35-5.85); RED CELL DISTRIBUTION WIDTH 12.8 % (10.0-14.5); WHITE BLOOD COUNT 17.8 10^3/uL (4.3-11.0)
[2017-04-29 06:40] LABS: ALANINE AMINOTRANSFERASE 22 U/L (0-55); ALBUMIN 3.5 GM/DL (3.2-4.5); ANION GAP 8 MMOL/L (5-14); ASPARTATE AMINO TRANSFERASE 17 U/L (5-34); BILIRUBIN,TOTAL 0.4 MG/DL (0.1-1.0); BLOOD UREA NITROGEN 8 MG/DL (7-18); BUN/CREATININE RATIO 11; CARBON DIOXIDE 26 MMOL/L (21-32); CHLORIDE 111 MMOL/L (98-107); CREATININE SERUM 0.75 MG/DL (0.60-1.30); GFR ESTIMATED > 60; GLUCOSE 147 MG/DL (70-105); POTASSIUM 3.4 MMOL/L (3.6-5.0); SODIUM 145 MMOL/L (135-145); TOTAL PROTEIN 5.8 GM/DL (6.4-8.2)
[2017-04-29 07:16] LABS: LYMPHOCYTES % (MANUAL) 8 %; NEUTROPHILS % (MANUAL) 91 %
[2017-04-29 07:37] VITALS: BP 103/63
--- NOTE | 2017-04-29 08:22 | Progress Note (SOAP) ---
Subjective Time Seen by Provider: 08:20 Subjective/Events-last exam patient feeling 35 percent better. Patient having pain in the right lower quadrant. Patient abdomen is soft. Patient in the right direction. Plan to discharge tomorrow Objective Exam Vital Signs Date Time Temp Pulse Resp B/P (MAP) Pulse Ox O2 Delivery O2 Flow Rate FiO2 04/29/17 07:37 98.0 60 18 103/63 94 Room Air 04/29/17 03:30 97.7 65 20 117/66 94 Room Air 04/29/17 00:35 97.4 66 16 107/67 92 Room Air 04/28/17 20:00 99.1 66 18 114/78 93 Room Air 04/28/17 16:00 100.0 61 18 123/83 92 Room Air 04/28/17 12:32 97.3 63 18 109/74 95 Room Air 04/28/17 09:59 97.5 59 18 102/70 93 Room Air I & O 04/29/17 07:00 Intake Total 2850 ml Output Total 2450 ml Balance 400 ml Capillary Refill : Less Than 3 Seconds General Appearance: No Apparent Distress, WD/WN HEENT: Normal ENT Inspection Neck: Full Range of Motion, Normal Inspection Respiratory: Chest Non Tender, Lungs Clear, No Accessory Muscle Use Cardiovascular: Regular Rate, Rhythm, No Murmur Gastrointestinal: non tender, soft Results Lab Laboratory Tests 04/29/17 05:42: White Blood Count 17.8H, Red Blood Count 4.15L, Hemoglobin 12.9, Hematocrit 39, Mean Corpuscular Volume 93, Mean Corpuscular Hemoglobin 31, Mean Corpuscular Hemoglobin Concent 34, Red Cell Distribution Width 12.8, Platelet Count 351, Mean Platelet Volume 9.1, Neutrophils (%) (Auto) 89H, Lymphocytes (%) (Auto) 8L , Monocytes (%) (Auto) 3, Eosinophils (%) (Auto) 0, Basophils (%) (Auto) 0, Neutrophils # (Auto) 16.0H, Lymphocytes # (Auto) 1.4, Monocytes # (Auto) 0.5, Eosinophils # (Auto) 0.0, Basophils # (Auto) 0.0, Neutrophils % (Manual) 91, Lymphocytes % (Manual) 8, Monocytes % (Manual) 1, Blood Morphology Comment NORMAL, Sodium Level 145, Potassium Level 3.4L, Chloride Level 111H, Carbon Dioxide Level 26, Anion Gap 8, Blood Urea Nitrogen 8, Creatinine 0.75, Estimat Glomerular Filtration Rate > 60, BUN/Creatinine Ratio 11, Glucose Level 147H, Calcium Level 9.0, Total Bilirubin 0.4, Aspartate Amino Transf (AST/SGOT) 17, Alanine Aminotransferase (ALT/SGPT) 22, Alkaline Phosphatase 76, Total Protein 5.8L, Albumin 3.5 Assessment/Plan Assessment/Plan Assess & Plan/Chief Complaint Crohn's flare. Patient doing better Clinical Quality Measures DVT/VTE Risk/Contraindication: Risk Factor Score Per Nursin RFS Level Per Nursing on Admit: 3=High Contraindications-Pharm: Other *list below* ROSANGELA ARMAS DO Apr 29, 2017 08:21
[2017-04-29] MEDS ORDERED: KCL 10 MEQ TAB (MICRO K) PO NR (08:30)
--- NOTE | 2017-04-29 08:35 | Progress Note ---
Subjective Time Seen by Provider: 08:30 Subjective/Events-last exam Patient easily aroused. Even respirations. Reports that she is doing better today but still c/o RLQ pain. She reports having a bowel movement that was not formed. Objective Exam Vital Signs Date Time Temp Pulse Resp B/P (MAP) Pulse Ox O2 Delivery O2 Flow Rate FiO2 04/29/17 07:37 98.0 60 18 103/63 94 Room Air 04/29/17 03:30 97.7 65 20 117/66 94 Room Air 04/29/17 00:35 97.4 66 16 107/67 92 Room Air 04/28/17 20:00 99.1 66 18 114/78 93 Room Air 04/28/17 16:00 100.0 61 18 123/83 92 Room Air 04/28/17 12:32 97.3 63 18 109/74 95 Room Air 04/28/17 09:59 97.5 59 18 102/70 93 Room Air I & O 04/29/17 07:00 Intake Total 2850 ml Output Total 2450 ml Balance 400 ml Capillary Refill : Less Than 3 Seconds General Appearance: No Apparent Distress, WD/WN HEENT: Normal ENT Inspection Neck: Full Range of Motion, Normal Inspection Respiratory: Chest Non Tender, No Accessory Muscle Use, No Respiratory Distress Cardiovascular: Regular Rate, Rhythm Gastrointestinal: soft, tenderness (RLQ) Extremity: No Calf Tenderness Neurologic/Psychiatric: Alert, Oriented x3 Skin: Normal Color, Warm/Dry Results Lab Laboratory Tests Test 04/27/17 19:45 04/27/17 20:05 04/28/17 04:20 04/29/17 05:42 Range/Units Urine Color YELLOW Urine Clarity CLEAR Urine pH 6 5-9 Urine Specific [place] 1.020 1.016-1.022 Urine Protein NEGATIVE NEGATIVE Urine Glucose (UA) NEGATIVE NEGATIVE Urine Ketones NEGATIVE NEGATIVE Urine Nitrite NEGATIVE NEGATIVE Urine Bilirubin NEGATIVE NEGATIVE Urine Urobilinogen NORMAL NORMAL MG/DL Urine Leukocyte Esterase 2+ H NEGATIVE Urine RBC (Auto) NEGATIVE NEGATIVE Urine RBC NONE /HPF Urine WBC 0-2 /HPF Urine Squamous Epithelial Cells 5-10 /HPF Urine Renal Epithelial Cells NONE /HPF Urine Crystals NONE /LPF Urine Bacteria NEGATIVE /HPF Urine Casts NONE /LPF Urine Mucus NEGATIVE /LPF Urine Culture Indicated NO Urine Opiates Screen POSITIVE H NEGATIVE Urine Oxycodone Screen NEGATIVE NEGATIVE Urine Methadone Screen NEGATIVE NEGATIVE Urine Propoxyphene Screen NEGATIVE NEGATIVE Urine Barbiturates Screen NEGATIVE NEGATIVE Ur Tricyclic Antidepressants Screen NEGATIVE NEGATIVE Urine Phencyclidine Screen NEGATIVE NEGATIVE Urine Amphetamines Screen NEGATIVE NEGATIVE Urine Methamphetamines Screen NEGATIVE NEGATIVE Urine Benzodiazepines Screen NEGATIVE NEGATIVE Urine Cocaine Screen NEGATIVE NEGATIVE Urine Cannabinoids Screen NEGATIVE NEGATIVE White Blood Count 11.5 H 9.8 17.8 H 4.3-11.0 10^3/uL Red Blood Count 3.72 L 4.30 L 4.15 L 4.35-5.85 10^6/uL Hemoglobin 11.6 13.3 12.9 11.5-16.0 G/DL Hematocrit 35 40 39 35-52 % Mean Corpuscular Volume 94 92 93 80-99 FL Mean Corpuscular Hemoglobin 31 31 31 25-34 PG Mean Corpuscular Hemoglobin Concent 33 34 34 32-36 G/DL Red Cell Distribution Width 12.9 12.7 12.8 10.0-14.5 % Platelet Count 323 346 351 130-400 10^3/uL Mean Platelet Volume 8.9 8.9 9.1 7.4-10.4 FL Neutrophils (%) (Auto) 66 91 H 89 H 42-75 % Lymphocytes (%) (Auto) 23 9 L 8 L 12-44 % Monocytes (%) (Auto) 6 1 3 0-12 % Eosinophils (%) (Auto) 5 0 0 0-10 % Basophils (%) (Auto) 0 0 0 0-10 % Neutrophils # (Auto) 7.5 8.9 H 16.0 H 1.8-7.8 X 10^3 Lymphocytes # (Auto) 2.7 0.8 L 1.4 1.0-4.0 X 10^3 Monocytes # (Auto) 0.7 0.1 0.5 0.0-1.0 X 10^3 Eosinophils # (Auto) 0.5 H 0.0 0.0 0.0-0.3 10^3/uL Basophils # (Auto) 0.0 0.0 0.0 0.0-0.1 10^3/uL Sodium Level 141 144 145 135-145 MMOL/L Potassium Level 4.9 3.1 L 3.4 L 3.6-5.0 MMOL/L Chloride Level 110 H 110 H 111 H 98-107 MMOL/L Carbon Dioxide Level 20 L 22 26 21-32 MMOL/L Anion Gap 11 12 8 5-14 MMOL/L Blood Urea Nitrogen 5 L 8 8 7-18 MG/DL Creatinine 0.79 0.77 0.75 0.60-1.30 MG/DL Estimat Glomerular Filtration Rate > 60 > 60 > 60 BUN/Creatinine Ratio 6 10 11 Glucose Level 102 167 H 147 H 70-105 MG/DL Calcium Level 8.9 9.1 9.0 8.5-10.1 MG/DL Total Bilirubin 0.5 0.4 0.4 0.1-1.0 MG/DL Aspartate Amino Transf (AST/SGOT) 42 H 18 17 5-34 U/L Alanine Aminotransferase (ALT/SGPT) 26 22 22 0-55 U/L Alkaline Phosphatase 79 91 76 40-136 U/L Total Protein 6.6 6.3 L 5.8 L 6.4-8.2 GM/DL Albumin 3.7 3.9 3.5 3.2-4.5 GM/DL Amylase Level 95 62 25-125 U/L Lipase 203 H 49 8-78 U/L Neutrophils % (Manual) 79 91 % Lymphocytes % (Manual) 11 8 % Band Neutrophils 10 % Blood Morphology Comment NORMAL NORMAL Monocytes % (Manual) 1 % Laboratory Tests 04/29/17 05:42: White Blood Count 17.8H, Red Blood Count 4.15L, Hemoglobin 12.9, Hematocrit 39, Mean Corpuscular Volume 93, Mean Corpuscular Hemoglobin 31, Mean Corpuscular Hemoglobin Concent 34, Red Cell Distribution Width 12.8, Platelet Count 351, Mean Platelet Volume 9.1, Neutrophils (%) (Auto) 89H, Lymphocytes (%) (Auto) 8L , Monocytes (%) (Auto) 3, Eosinophils (%) (Auto) 0, Basophils (%) (Auto) 0, Neutrophils # (Auto) 16.0H, Lymphocytes # (Auto) 1.4, Monocytes # (Auto) 0.5, Eosinophils # (Auto) 0.0, Basophils # (Auto) 0.0, Neutrophils % (Manual) 91, Lymphocytes % (Manual) 8, Monocytes % (Manual) 1, Blood Morphology Comment NORMAL, Sodium Level 145, Potassium Level 3.4L, Chloride Level 111H, Carbon Dioxide Level 26, Anion Gap 8, Blood Urea Nitrogen 8, Creatinine 0.75, Estimat Glomerular Filtration Rate > 60, BUN/Creatinine Ratio 11, Glucose Level 147H, Calcium Level 9.0, Total Bilirubin 0.4, Aspartate Amino Transf (AST/SGOT) 17, Alanine Aminotransferase (ALT/SGPT) 22, Alkaline Phosphatase 76, Total Protein 5.8L, Albumin 3.5 Assessment/Plan Assessment/Plan Assessment/Plan Colitis Crohn's flare up HX of Crohn's disease. Patient reports she is feeling better. WBC is elevated this am. Will continue to monitor labs. Mitchell- patient reports feeling a little better today. Passing flatus and had liquid bm last night. Still with nausea at times. Denies fever sweats chills shortness of breath or chest pain. general no acute distress laying in bed heart reg lung nonlabored abdomen minimal tenderness lower abdomen, no guarding or rebounding, no organomegaly ext nontender alert and oriented flat affect assessment as above no change to current plan will need outpatient follow up with her GI wbc elevated likely to steroids Clinical Quality Measures DVT/VTE Risk/Contraindication: Risk Factor Score Per Nursin RFS Level Per Nursing on Admit: 3=High Contraindications-Pharm: Other *list below* COLIN CISNEROS APRN Apr 29, 2017 8:35 am FREDDY MCCARTY DO Apr 29, 2017 1:23 pm
[2017-04-29] MEDS: MESALAMINE 250 MG (PENTASA) CAP PO SCH (08:52)
[2017-04-29] MEDS: LORATADINE (CLARITIN) 10 MG TAB PO SCH (08:53)
[2017-04-29] MEDS: FAMOTIDINE 20 MG (PEPCID) TABLET PO SCH ×2 (08:53→20:32)
[2017-04-29] MEDS: DICYCLOMINE 10 MG (BENTYL) CAP PO SCH ×3 (08:53→20:32)
[2017-04-29] MEDS ORDERED: NON-FORMULARY MEDICATION 1 EA EA (Omeprazole 40 MG) PO SCH (09:00)
[2017-04-29] MEDS ORDERED: MESALAMINE 1000 MG PO SCH (09:00)
[2017-04-29 11:56] VITALS: BP 107/61
[2017-04-29] MEDS: ENOXAPARIN 40 MG/0.4 ML (LOVENOX) SYR SC SCH (14:56)
[2017-04-29 16:19] VITALS: BP 116/64
[2017-04-29 20:00] VITALS: BP 125/75
[2017-04-30 00:17] VITALS: BP 127/78
[2017-04-30] MEDS: PROMETHAZINE INJ 25 MG/ML (PHENERGAN) AMP IV PRN ×2 (00:23→08:56)
[2017-04-30] MEDS: CIPROFLOXACIN 400 MG/D5W 200 ML (PRE-MIX) IV SCH (01:09)
[2017-04-30] MEDS: methylPREDNISolone 125 MG (Solu-MEDROL) VIAL IV SCH ×2 (04:49→11:04)
[2017-04-30] MEDS: metroNIDAZOLE 500 MG/100 ML IVPB (PRE-MIX) IV SCH ×2 (04:49→11:04)
[2017-04-30] MEDS: PANTOPRAZOLE 40 MG (PROTONIX) TAB PO SCH (06:17)
[2017-04-30 06:24] LABS: MEAN PLATELET VOLUME 9.3 FL (7.4-10.4); RED BLOOD COUNT 4.18 10^6/uL (4.35-5.85); RED CELL DISTRIBUTION WIDTH 13.1 % (10.0-14.5); WHITE BLOOD COUNT 20.1 10^3/uL (4.3-11.0)
[2017-04-30] MEDS: fentaNYL INJECTION 100 MCG/2 ML AMP IV PRN (06:24)
[2017-04-30 06:53] LABS: ALANINE AMINOTRANSFERASE 36 U/L (0-55); ALBUMIN 3.4 GM/DL (3.2-4.5); ANION GAP 10 MMOL/L (5-14); ASPARTATE AMINO TRANSFERASE 25 U/L (5-34); BILIRUBIN,TOTAL 0.5 MG/DL (0.1-1.0); BLOOD UREA NITROGEN 10 MG/DL (7-18); BUN/CREATININE RATIO 14; CALCIUM 8.7 MG/DL (8.5-10.1); CARBON DIOXIDE 24 MMOL/L (21-32); CHLORIDE 110 MMOL/L (98-107); CREATININE SERUM 0.71 MG/DL (0.60-1.30); GFR ESTIMATED > 60; GLUCOSE 130 MG/DL (70-105); POTASSIUM 3.6 MMOL/L (3.6-5.0); SODIUM 144 MMOL/L (135-145); TOTAL PROTEIN 5.6 GM/DL (6.4-8.2)
--- NOTE | 2017-04-30 07:48 | Progress Note (SOAP) ---
Subjective Time Seen by Provider: 07:30 Subjective/Events-last exam patient feeling much better today except for some nauseousness. Patient states she's ready to go Home. Crohn's disease clinically better Objective Exam Vital Signs Date Time Temp Pulse Resp B/P (MAP) Pulse Ox O2 Delivery O2 Flow Rate FiO2 04/30/17 00:17 98.5 65 20 127/78 95 Room Air 04/29/17 20:00 98.0 68 18 125/75 95 Room Air 04/29/17 16:19 99.5 65 18 116/64 95 Room Air 04/29/17 11:56 98.4 69 16 107/61 93 Room Air I & O 04/30/17 07:00 Intake Total 2830 ml Output Total 1375 ml Balance 1455 ml Capillary Refill : Less Than 3 Seconds General Appearance: No Apparent Distress, WD/WN HEENT: Normal ENT Inspection Neck: Full Range of Motion, Normal Inspection Respiratory: Chest Non Tender, Lungs Clear, Normal Breath Sounds, No Accessory Muscle Use, No Respiratory Distress Cardiovascular: Regular Rate, Rhythm, No Murmur Gastrointestinal: non tender, soft Results Lab Laboratory Tests 04/30/17 05:40 Laboratory Tests 04/30/17 05:40: White Blood Count 20.1H, Red Blood Count 4.18L, Hemoglobin 13.0, Hematocrit 39, Mean Corpuscular Volume 94, Mean Corpuscular Hemoglobin 31, Mean Corpuscular Hemoglobin Concent 33, Red Cell Distribution Width 13.1, Platelet Count 310, Mean Platelet Volume 9.3, Sodium Level 144, Potassium Level 3.6, Chloride Level 110H, Carbon Dioxide Level 24, Anion Gap 10, Blood Urea Nitrogen 10, Creatinine 0.71, Estimat Glomerular Filtration Rate > 60, BUN/Creatinine Ratio 14, Glucose Level 130H, Calcium Level 8.7, Total Bilirubin 0.5, Aspartate Amino Transf (AST/ SGOT) 25, Alanine Aminotransferase (ALT/SGPT) 36, Alkaline Phosphatase 73, Total Protein 5.6L, Albumin 3.4 Assessment/Plan Assessment/Plan Assess & Plan/Chief Complaint Crohn's flare. Patient doing better. . 04/30/17. Crohn's disease better Clinical Quality Measures DVT/VTE Risk/Contraindication: Risk Factor Score Per Nursin RFS Level Per Nursing on Admit: 3=High Contraindications-Pharm: Other *list below* ROSANGELA ARMAS DO Apr 30, 2017 07:48
[2017-04-30 08:00] VITALS: BP 135/83
[2017-04-30] MEDS: LORATADINE (CLARITIN) 10 MG TAB PO SCH (08:47)
[2017-04-30] MEDS: HYDROcodone/APAP 10 MG/325 MG (LORTAB) TAB PO PRN ×2 (08:47→13:50)
[2017-04-30] MEDS: MESALAMINE 250 MG (PENTASA) CAP PO SCH (08:47)
[2017-04-30] MEDS: FAMOTIDINE 20 MG (PEPCID) TABLET PO SCH (08:47)
[2017-04-30] MEDS ORDERED: NS (IVPB) 250 ML ONE (08:49)
[2017-04-30] MEDS: DICYCLOMINE 10 MG (BENTYL) CAP PO SCH (08:56)
[2017-04-30] MEDS: D5 1/2 NS W/KCL 20 MEQ/L 1,000 ML IV SCH (08:57)
--- NOTE | 2017-04-30 09:35 | Progress Note ---
Subjective Time Seen by Provider: 08:45 Subjective/Events-last exam Patient sleeping in bed. Easily aroused. Even respirations. No distress noted. Patient reports that she is feeling better today. Objective Exam Vital Signs Date Time Temp Pulse Resp B/P (MAP) Pulse Ox O2 Delivery O2 Flow Rate FiO2 04/30/17 08:00 98.6 60 20 135/83 95 Room Air 04/30/17 00:17 98.5 65 20 127/78 95 Room Air 04/29/17 20:00 98.0 68 18 125/75 95 Room Air 04/29/17 16:19 99.5 65 18 116/64 95 Room Air 04/29/17 11:56 98.4 69 16 107/61 93 Room Air I & O 04/30/17 07:00 Intake Total 2830 ml Output Total 1375 ml Balance 1455 ml Capillary Refill : Less Than 3 Seconds General Appearance: No Apparent Distress, WD/WN HEENT: Normal ENT Inspection Neck: Full Range of Motion, Normal Inspection Respiratory: Chest Non Tender, No Accessory Muscle Use, No Respiratory Distress Cardiovascular: Regular Rate, Rhythm Gastrointestinal: non tender, soft, tenderness (mild tenderness to the right lower quadrant. ) Extremity: No Calf Tenderness Neurologic/Psychiatric: Alert, Oriented x3 Skin: Normal Color, Warm/Dry Results Lab Laboratory Tests Test 04/29/17 05:42 04/30/17 05:40 Range/Units White Blood Count 17.8 H 20.1 H 4.3-11.0 10^3/uL Red Blood Count 4.15 L 4.18 L 4.35-5.85 10^6/uL Hemoglobin 12.9 13.0 11.5-16.0 G/DL Hematocrit 39 39 35-52 % Mean Corpuscular Volume 93 94 80-99 FL Mean Corpuscular Hemoglobin 31 31 25-34 PG Mean Corpuscular Hemoglobin Concent 34 33 32-36 G/DL Red Cell Distribution Width 12.8 13.1 10.0-14.5 % Platelet Count 351 310 130-400 10^3/uL Mean Platelet Volume 9.1 9.3 7.4-10.4 FL Neutrophils (%) (Auto) 89 H 42-75 % Lymphocytes (%) (Auto) 8 L 12-44 % Monocytes (%) (Auto) 3 0-12 % Eosinophils (%) (Auto) 0 0-10 % Basophils (%) (Auto) 0 0-10 % Neutrophils # (Auto) 16.0 H 1.8-7.8 X 10^3 Lymphocytes # (Auto) 1.4 1.0-4.0 X 10^3 Monocytes # (Auto) 0.5 0.0-1.0 X 10^3 Eosinophils # (Auto) 0.0 0.0-0.3 10^3/uL Basophils # (Auto) 0.0 0.0-0.1 10^3/uL Neutrophils % (Manual) 91 % Lymphocytes % (Manual) 8 % Monocytes % (Manual) 1 % Blood Morphology Comment NORMAL Sodium Level 145 144 135-145 MMOL/L Potassium Level 3.4 L 3.6 3.6-5.0 MMOL/L Chloride Level 111 H 110 H 98-107 MMOL/L Carbon Dioxide Level 26 24 21-32 MMOL/L Anion Gap 8 10 5-14 MMOL/L Blood Urea Nitrogen 8 10 7-18 MG/DL Creatinine 0.75 0.71 0.60-1.30 MG/DL Estimat Glomerular Filtration Rate > 60 > 60 BUN/Creatinine Ratio 11 14 Glucose Level 147 H 130 H 70-105 MG/DL Calcium Level 9.0 8.7 8.5-10.1 MG/DL Total Bilirubin 0.4 0.5 0.1-1.0 MG/DL Aspartate Amino Transf (AST/SGOT) 17 25 5-34 U/L Alanine Aminotransferase (ALT/SGPT) 22 36 0-55 U/L Alkaline Phosphatase 76 73 40-136 U/L Total Protein 5.8 L 5.6 L 6.4-8.2 GM/DL Albumin 3.5 3.4 3.2-4.5 GM/DL Laboratory Tests 04/30/17 05:40: White Blood Count 20.1H, Red Blood Count 4.18L, Hemoglobin 13.0, Hematocrit 39, Mean Corpuscular Volume 94, Mean Corpuscular Hemoglobin 31, Mean Corpuscular Hemoglobin Concent 33, Red Cell Distribution Width 13.1, Platelet Count 310, Mean Platelet Volume 9.3, Sodium Level 144, Potassium Level 3.6, Chloride Level 110H, Carbon Dioxide Level 24, Anion Gap 10, Blood Urea Nitrogen 10, Creatinine 0.71, Estimat Glomerular Filtration Rate > 60, BUN/Creatinine Ratio 14, Glucose Level 130H, Calcium Level 8.7, Total Bilirubin 0.5, Aspartate Amino Transf (AST/ SGOT) 25, Alanine Aminotransferase (ALT/SGPT) 36, Alkaline Phosphatase 73, Total Protein 5.6L, Albumin 3.4 Assessment/Plan Assessment/Plan Assessment/Plan Colitis Crohn's flare up HX of Crohn's disease. Patient reports she is feeling better. WBC is elevated this am. Will continue to monitor labs. No changes to plan. Mitchell- patient feeling better today. Still with some nausea at times. Denies any vomiting fever sweats chills shortness of breath or chest pain. Abdominal pain improving. Minimal severity and right lower quadrant. no acute distress laying in bed heart reg lungs nonlabored abdomen soft, minimal tenderness right lower quadrant no palpable masses no organomegaly ext nontender normal mood flat affect alert and oriented assessment as above and right lower quadrant abdominal pain clinically improving needs follow up with her GI dr. which we discussed and she understands no surgical intervention Clinical Quality Measures DVT/VTE Risk/Contraindication: Risk Factor Score Per Nursin RFS Level Per Nursing on Admit: 3=High Contraindications-Pharm: Other *list below* COLIN CISNEROS APRN Apr 30, 2017 09:35 FREDDY MCCARTY DO Apr 30, 2017 15:37
[2017-04-30] MEDS ORDERED: PROM25TA14 PO (11:45)
[2017-04-30] MEDS ORDERED: PRED10TA22 PO (11:45)
[2017-04-30 13:50] VITALS: BP 135/83
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
== END 2017-04-30 14:00 | disposition home or self-care (01) | DRG 387 ==
LOC: EDUNIT# 18:55 → ER 18:57 → 4TH 21:45
PROVIDERS: ADMIT Family Medicine; ATTEND Family Medicine
DX: K50.90 Crohn's disease, unspecified, without complications (principal); K52.9 Noninfective gastroenteritis and colitis, unspecified; J45.909 Unspecified asthma, uncomplicated; Z87.19 Personal history of other diseases of the digestive system; Z87.442 Personal history of urinary calculi; Z98.51 Tubal ligation status; Z90.710 Acquired absence of both cervix and uterus; I10 Essential (primary) hypertension; F17.210 Nicotine dependence, cigarettes, uncomplicated
CPT/HCPCS: 36415; 74177; 80053; 80306; 81000; 82150; 83690; 85007; 85025; 85027; 96361; 96365; 96375; 96376

== ENCOUNTER 2017-06-18 20:58 | Emergency (ER) | payer MEDICAID ==
[~2017-06-18] VITALS: Ht 160 cm; Wt 77.1 kg
[~2017-06-18 20:58] MED LIST changes: +FAMO20TA5 PO; +HYOS-19 SL; -HYOS0.1218 SL; +ONDA8TAB9 PO; +PRED10TA22 PO
[2017-06-18 22:32] LABS: BASOPHILS % (AUTO) 0 % (0-10); EOSINOPHILS # (AUTO) 0.5 10^3/uL (0.0-0.3); EOSINOPHILS % (AUTO) 5 % (0-10); LYMPHOCYTES # (AUTO) 3.7 X 10^3 (1.0-4.0); LYMPHOCYTES % (AUTO) 36 % (12-44); MEAN CORPUSCULAR HEMOGLOBIN 31 PG (25-34); MEAN CORPUSCULAR HGB CONC 34 G/DL (32-36); MEAN CORPUSCULAR VOLUME 92 FL (80-99); MEAN PLATELET VOLUME 8.9 FL (7.4-10.4); MONOCYTES # (AUTO) 0.6 X 10^3 (0.0-1.0); MONOCYTES % (AUTO) 6 % (0-12); NEUTROPHILS # (AUTO) 5.5 X 10^3 (1.8-7.8); NEUTROPHILS % (AUTO) 54 % (42-75); PLATELET COUNT 373 10^3/uL (130-400); RED BLOOD COUNT 4.68 10^6/uL (4.35-5.85); RED CELL DISTRIBUTION WIDTH 12.8 % (10.0-14.5); WHITE BLOOD COUNT 10.2 10^3/uL (4.3-11.0)
[2017-06-18 22:50] LABS: ALANINE AMINOTRANSFERASE 20 U/L (0-55); ALBUMIN 4.1 GM/DL (3.2-4.5); ANION GAP 12 MMOL/L (5-14); ASPARTATE AMINO TRANSFERASE 19 U/L (5-34); BILIRUBIN,TOTAL 0.2 MG/DL (0.1-1.0); BLOOD UREA NITROGEN 6 MG/DL (7-18); BUN/CREATININE RATIO 8; CALCIUM 9.6 MG/DL (8.5-10.1); CARBON DIOXIDE 24 MMOL/L (21-32); CHLORIDE 107 MMOL/L (98-107); CREATININE SERUM 0.73 MG/DL (0.60-1.30); GFR ESTIMATED > 60; GLUCOSE 84 MG/DL (70-105); POTASSIUM 3.3 MMOL/L (3.6-5.0); SODIUM 143 MMOL/L (135-145); TOTAL PROTEIN 6.8 GM/DL (6.4-8.2); hs C REACTIVE PROTEIN 0.26 MG/DL (0.00-0.50)
[2017-06-18 23:48] LABS: ERYTHROCYTE SEDIMENTATION RATE 8 MM/HR (0-20)
[2017-06-19] MEDS ORDERED: PRD20T PO (00:06)
[2017-06-19] MEDS ORDERED: CIPR-225 PO (00:06)
[2017-06-19] MEDS ORDERED: METR500T PO (00:06)
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
[2017-06-19] MEDS: CIPROFLOXACIN 500 MG (CIPRO) TABLET PO ONE (00:08)
[2017-06-19] MEDS: methylPREDNISolone 125 MG (Solu-MEDROL) VIAL IVP ONE (00:08)
[2017-06-19] MEDS: metroNIDAZOLE 500 MG (FLAGYL) TAB PO ONE (00:09)
[2017-06-19] MEDS: KCL 10 MEQ TAB (MICRO K) PO ONE (00:09)
[2017-06-19 00:24] VITALS: BP 122/85
--- NOTE | 2017-06-19 06:06 | Diagnostic Imaging Report ---
EXAM: ABDOMEN, FLAT UPRIGHT/DECUB INDICATION: With blood in stool. COMPARISON: CT abdomen and pelvis with IV contrast 04/27/2017. FINDINGS: Cholecystectomy clips. Suture lines in the midabdomen. Nonspecific bowel gas pattern. Lung bases are clear. No acute osseous findings. IMPRESSION: No acute radiographic findings in the abdomen. Dictated by: Dictated on workstation # [id number]
--- OUTSIDE RECORDS SUMMARY | 2017-06-21 08:40 | XMS REPORT | Encounter Summary ---
Author Author [facility] Organization [facility] Address Unknown Phone Unavailable Care Team Providers Care Service Porter Name Role Phone PCP Unavailable Reason for Visit * Reason Comments Medication Refill Encounter Details Date Type Department Care Team Description 05/03/2017 Refill [facility] Loreta Mcfadden ARNP Physicians - Internal [address] [facility] [place] [address] [facility] [address] OFFICE BLDG [phone] [address] [place] [address] Social History Tobacco Use Types Packs/Day Years Used Date Current Every Day Smoker Cigarettes 0.5 11 Smokeless Tobacco: Former Quit: User 06/29/2016 Alcohol Use Drinks/Week oz/Week Comments No 0 Standard 0.0 drinks or equivalent Sex Assigned at Date Recorded Not on file as of this encounter Plan of Treatment Not on fileas of this encounter Visit Diagnoses Not on filein this encounter
--- OUTSIDE RECORDS SUMMARY | 2017-06-21 08:40 | XMS REPORT | Clinical Summary ---
Author Author [facility] Organization [facility] Address Unknown Phone Unavailable Care Team Providers Care Reception Interviewer Name Role Phone PCP Unavailable Source Comments Some departments are not documenting in the electronic medical record. If you do not see the information that you expected, contact Release of Information in the Health Information Management department at [phone] for further assistance in locating additional records.[facility] Allergies Active Allergy Reactions Severity Noted Date Comments Nsaids (Non-Steroidal SEE COMMENTS 06/22/2012 Stomach bleeding Anti-Inflammatory Drug) Penicillins 12/19/2008 Current Medications Prescription Sig. Disp. Refills Start End Date Status Date HYDROcodone/acetaminophen Take 1 Tab by mouth every Active (NORCO; VICODIN) 5-325 mg 6 hours as needed. tablet LORATADINE (CLARITIN PO) Take by mouth. Active Sodium,Potassium,&Mag Take 2 Bottles by mouth 354 mL 0 05/19/20 Active Sulfates 17.5-3.13-1.6 as directed. For split 16 gram solrIndications: dose colonoscopy prep. Crohn's disease with complication, unspecified gastrointestinal tract location, Gastroesophageal reflux disease, esophagitis presence not specified mesalamine (LIALDA) 1.2 Take 4 Tabs by mouth 120 Tab 0 07/28/20 Active gram tablet daily with breakfast. 16 PENTASA 500 mg cpER TAKE 2 CAPSULES BY MOUTH 240 Cap 0 05/12/20 Active TWICE DAILY 17 PENTASA 500 mg cpER TAKE 2 CAPSULES BY MOUTH 240 Cap 0 05/12/20 Active TWICE DAILY 17 Mesalamine (PENTASA) 500 Take 2 Caps by mouth four 240 Cap 3 04/22/20 Active mg cpER times daily. [address](+) TAKE 1 CAPSULE BY MOUTH 90 Cap 0 05/03/20 Active (PRILOSEC) 40 mg capsule DAILY BEFORE BREAKFAST 17 Active Problems Problem Noted Date Inadequate material resources 12/25/2014 Noncompliance 05/29/2014 Crohn's disease (HCC) 08/02/2012 Encounters Date Type Specialty Care Team Description 05/03/2017 Refill Gastroenterology Loreta Mcfadden ARNP 04/21/2017 Refill Gastroenterology Moncho Odonnell MD 04/21/2017 Refill Gastroenterology Barber Nguyen MD 04/19/2017 Refill Gastroenterology Barber Nguyen MD from Last 3 Months Social History Tobacco Use Types Packs/Day Years Used Date Current Every Day Smoker Cigarettes 0.5 11 Smokeless Tobacco: Former Quit: User 06/29/2016 Tobacco Cessation: Ready to Quit: No; Counseling Given: Yes Alcohol Use Drinks/Week oz/Week Comments No 0 Standard 0.0 drinks or equivalent Sex Assigned at Date Recorded Not on file Last Filed Vital Signs Vital Sign Reading Time Taken Blood Pressure 133/100 03/16/2017 1:33 PM CDT Pulse 92 03/16/2017 1:33 PM CDT Temperature 37.1 C (98.8 F) 03/16/2017 1:33 PM CDT Respiratory Rate 16 03/16/2017 1:33 PM CDT Oxygen Saturation 99% 05/21/2016 8:39 AM CDT Inhaled Oxygen - - Concentration Weight 79.5 kg (175 lb 3.2 oz) 03/16/2017 1:33 PM CDT Height 160 cm (5' 3") 03/16/2017 1:33 PM CDT Body Mass Index 31.04 03/16/2017 1:33 PM CDT Plan of Treatment Health Maintenance Due Date Last Done Comments PHYSICAL (COMPREHENSIVE) 1985 EXAM PERTUSSIS VACCINE 1989 TETANUS VACCINE 1995 CERVICAL CANCER SCREENING 2008 INFLUENZA VACCINE 06/25/2017 Results Not on filefrom Last 3 Months
--- OUTSIDE RECORDS SUMMARY | 2017-06-21 08:40 | XMS REPORT | Encounter Summary ---
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
--- OUTSIDE RECORDS SUMMARY | 2017-06-21 08:41 | XMS REPORT | Encounter Summary ---
Author Author [facility] Organization [facility] Address Unknown Phone Unavailable Care Team Providers Care Military Science Teacher Name Role Phone PCP Unavailable Reason for Visit * Reason Comments Medication Refill Encounter Details Date Type Department Care Team Description 04/21/2017 Refill [facility] Barber Nguyen MD Physicians - Internal [address] [facility] Medicine [address] [place] [address] OFFICE BLDG [phone] [address] [address] Social History Tobacco Use Types [...]
--- OUTSIDE RECORDS SUMMARY | 2017-06-21 08:41 | XMS REPORT | Encounter Summary ---
Author Author [facility] Organization [facility] Address Unknown Phone Unavailable Care Team Providers Care Security Professionals Name Role Phone PCP Unavailable Reason for Visit * Reason Comments Medication Refill Encounter Details Date Type Department Care Team Description 04/19/2017 Refill [facility] Barber Nguyen MD Physicians - Internal [address] [facility] Medicine [address] [facility] [place] [address] OFFICE BLDG [phone] [address] [address] Social History Tobacco Use Types [...]
== END 2017-06-19 00:24 | disposition home or self-care (01) ==
LOC: EDUNIT# 20:58 → ER 21:00
DX: K50.911 Crohn's disease, unspecified, with rectal bleeding (principal); F41.9 Anxiety disorder, unspecified; K21.9 Gastro-esophageal reflux disease without esophagitis; I10 Essential (primary) hypertension; J45.909 Unspecified asthma, uncomplicated; F17.210 Nicotine dependence, cigarettes, uncomplicated; Z87.59 Personal history of other complications of pregnancy, childbirth and the puerperium; Z98.51 Tubal ligation status; Z87.42 Personal history of other diseases of the female genital tract; Z90.710 Acquired absence of both cervix and uterus; Z87.828 Personal history of other (healed) physical injury and trauma; Z87.442 Personal history of urinary calculi; Z90.49 Acquired absence of other specified parts of digestive tract
CPT/HCPCS: 36415; 74020; 80053; 85025; 85652; 86141

== ENCOUNTER 2017-07-04 23:03 | Emergency (ER) | payer MEDICAID ==
[~2017-07-04] VITALS: Ht 172.7 cm; Wt 77.1 kg
[2017-07-05 00:37] LABS: BASOPHILS % (AUTO) 1 % (0-10); EOSINOPHILS # (AUTO) 0.5 10^3/uL (0.0-0.3); EOSINOPHILS % (AUTO) 7 % (0-10); LYMPHOCYTES # (AUTO) 1.6 X 10^3 (1.0-4.0); LYMPHOCYTES % (AUTO) 21 % (12-44); MEAN CORPUSCULAR HEMOGLOBIN 31 PG (25-34); MEAN CORPUSCULAR HGB CONC 33 G/DL (32-36); MEAN CORPUSCULAR VOLUME 92 FL (80-99); MEAN PLATELET VOLUME 9.3 FL (7.4-10.4); MONOCYTES # (AUTO) 0.7 X 10^3 (0.0-1.0); MONOCYTES % (AUTO) 9 % (0-12); NEUTROPHILS # (AUTO) 4.9 X 10^3 (1.8-7.8); NEUTROPHILS % (AUTO) 63 % (42-75); PLATELET COUNT 318 10^3/uL (130-400); RED BLOOD COUNT 3.89 10^6/uL (4.35-5.85); RED CELL DISTRIBUTION WIDTH 12.3 % (10.0-14.5); WHITE BLOOD COUNT 7.7 10^3/uL (4.3-11.0)
[2017-07-05 00:59] LABS: ALANINE AMINOTRANSFERASE 15 U/L (0-55); ALBUMIN 3.5 GM/DL (3.2-4.5); ANION GAP 12 MMOL/L (5-14); ASPARTATE AMINO TRANSFERASE 16 U/L (5-34); BILIRUBIN,TOTAL 0.4 MG/DL (0.1-1.0); BLOOD UREA NITROGEN 5 MG/DL (7-18); BUN/CREATININE RATIO 7; CALCIUM 9.3 MG/DL (8.5-10.1); CARBON DIOXIDE 23 MMOL/L (21-32); CHLORIDE 108 MMOL/L (98-107); CREATININE SERUM 0.67 MG/DL (0.60-1.30); GFR ESTIMATED > 60; GLUCOSE 116 MG/DL (70-105); POTASSIUM 3.5 MMOL/L (3.6-5.0); SODIUM 143 MMOL/L (135-145); TOTAL PROTEIN 6.5 GM/DL (6.4-8.2); hs C REACTIVE PROTEIN 6.71 MG/DL (0.00-0.50)
[2017-07-05 01:06] LABS: TROPONIN I < 0.30 NG/ML (<0.30)
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
[2017-07-05 03:11] VITALS: BP 113/93
--- NOTE | 2017-07-05 08:20 | Diagnostic Imaging Report ---
PA and lateral views of the chest. INDICATION: Abdominal pain. FINDINGS: The lungs are clear. The heart size is normal. There is no effusion or pneumothorax. The mediastinum and kathy appear unremarkable. IMPRESSION: Unremarkable exam. Dictated by: Dictated on workstation # [id number]
== END 2017-07-05 03:11 | disposition home or self-care (01) ==
LOC: EDUNIT# 23:03 → ER 23:05
DX: R07.89 Other chest pain (principal); R06.00 Dyspnea, unspecified; F41.9 Anxiety disorder, unspecified; K21.9 Gastro-esophageal reflux disease without esophagitis; I10 Essential (primary) hypertension; J45.909 Unspecified asthma, uncomplicated; Z87.19 Personal history of other diseases of the digestive system; Z87.448 Personal history of other diseases of urinary system; Z90.710 Acquired absence of both cervix and uterus; Z90.49 Acquired absence of other specified parts of digestive tract; Z98.51 Tubal ligation status; Z77.22 Contact with and (suspected) exposure to environmental tobacco smoke (acute) (chronic); Z95.828 Presence of other vascular implants and grafts
CPT/HCPCS: 36415; 71020; 80053; 84484; 85025; 86141; 93005

== ENCOUNTER 2018-01-31 18:33 | Emergency (ER) | payer MEDICAID ==
[~2018-01-31] VITALS: Ht 160 cm; Wt 84.4 kg
[~2018-01-31 18:33] MED LIST changes: -HYDR-3812; -HYDR-3816 PO
[2018-01-31] MEDS ORDERED: LORA10CA PO (19:06)
[2018-01-31] MEDS ORDERED: ADAL20KI SQ (19:06)
[2018-01-31] MEDS ORDERED: OMEP20CA12 PO (19:07)
[2018-01-31] MEDS ORDERED: CALC-308 PO (19:07)
[2018-01-31] MEDS ORDERED: ALEN70TA47 (19:08)
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
[2018-01-31] MEDS ORDERED: RT-ALBUINH IH (19:34)
[2018-01-31] MEDS ORDERED: OSLT75C PO (19:34)
[2018-01-31] MEDS ORDERED: PRD20T PO (19:34)
[2018-01-31 19:39] VITALS: BP 0/0
== END 2018-01-31 19:39 | disposition home or self-care (01) ==
LOC: EDUNIT# 18:33 → ER 18:35
DX: J10.1 Influenza due to other identified influenza virus with other respiratory manifestations (principal); F41.9 Anxiety disorder, unspecified; J45.909 Unspecified asthma, uncomplicated; Z87.891 Personal history of nicotine dependence; Z87.442 Personal history of urinary calculi; Z90.49 Acquired absence of other specified parts of digestive tract; Z87.59 Personal history of other complications of pregnancy, childbirth and the puerperium; Z90.710 Acquired absence of both cervix and uterus; Z98.51 Tubal ligation status; Z87.19 Personal history of other diseases of the digestive system; Z87.42 Personal history of other diseases of the female genital tract; Z87.828 Personal history of other (healed) physical injury and trauma; Z88.6 Allergy status to analgesic agent; Z88.0 Allergy status to penicillin; Z88.2 Allergy status to sulfonamides; Z88.8 Allergy status to other drugs, medicaments and biological substances
CPT/HCPCS: 71046; 87804; 99282

== ENCOUNTER 2018-05-16 23:08 | Emergency (ER) | payer MEDICAID ==
[~2018-05-16] VITALS: Ht 160 cm; Wt 84.6 kg
[~2018-05-16 23:08] MED LIST changes: +ADAL20KI SQ; +ALEN70TA47; +CALC-308 PO; +OSLT75C PO; +RT-ALBUINH IH
--- OUTSIDE RECORDS SUMMARY | 2018-05-16 23:49 | XMS REPORT | Encounter Summary ---
Author Author [facility] Organization [facility] Address Unknown Phone Unavailable Care Team Providers Care Live In Housekeeper Name Role Phone Barber Nguyen MD Unavailable Naveed Lockhart DO PCP Mychart, Generic Provider Unavailable Unavailable Mary Gomez Unavailable Unavailable Loreta Mcfadden Unavailable Reason for Visit * Reason Comments Medication Refill Encounter Details Date Type Department Care Team Description 05/03/2018 Refill [facility] Moncho Odonnell MD Physicians [address] Ortho and Medical [address] [place] [address] [address] [facility] [phone] [place] [address] Social History Tobacco Use Types Packs/Day Years Used Date Former Smoker Cigarettes 0.5 11 Smokeless Tobacco: Former Quit: User 06/29/2017 Alcohol Use Drinks/Week oz/Week Comments No 0 Standard 0.0 drinks or equivalent Sex Assigned at Date Recorded Not on file as of this encounter Plan of Treatment Not on fileas of this encounter Visit Diagnoses Not on filein this encounter
--- OUTSIDE RECORDS SUMMARY | 2018-05-16 23:49 | XMS REPORT | Clinical Summary ---
Author Author [facility] Organization [facility] Address Unknown Phone Unavailable Care Team Providers Care Human Resources Leader Name Role Phone Barber Nguyen MD Unavailable Naveed Lockhart DO PCP Mychart, Generic Provider Unavailable Unavailable Mary Gomez Unavailable Unavailable Loreta Mcfadden Unavailable Source Comments Some departments are not documenting in the electronic medical record. If you do not see the information that you expected, contact Release of Information in the Health Information Management department at [phone] for further assistance in locating additional records.[facility] Allergies Active Allergy Reactions Severity Noted [...] disease with complication, unspecified gastrointestinal tract location (HCC), Gastroesophageal reflux disease, esophagitis presence not specified mesalamine (LIALDA) 1.2 Take 4 Tabs by mouth 120 Tab 0 07/28/20 Active gram tablet daily with breakfast. 16 PENTASA 500 mg cpER TAKE 2 CAPSULES BY MOUTH 240 Cap 0 05/12/20 Active TWICE DAILY 17 Mesalamine (PENTASA) 500 Take 2 Caps by mouth four 240 Cap 3 04/22/20 Active mg cpER times daily. 17 Mesalamine (PENTASA) 500 Take 2 capsules by mouth 240 capsule 4 Active mg cpER twice daily. [address](+) TAKE 1 CAPSULE BY MOUTH 90 capsule 0 05/04/20 Active (PRILOSEC) 40 mg capsule DAILY BEFORE BREAKFAST [address](+) TAKE 1 CAPSULE BY MOUTH 90 capsule 0 02/05/2005/03 Discontin (PRILOSEC) 40 mg capsule DAILY BEFORE BREAKFAST 18 18 ued Active Problems Problem Noted Date Inadequate material resources 12/25/2014 Noncompliance 05/29/2014 Crohn's disease (HCC) 08/02/2012 Encounters Date Type Specialty Care Team Description 05/03/2018 Refill Gastroenterology Moncho Odonnell MD from Last 3 Months Social History Tobacco Use Types Packs/Day Years Used Date Former Smoker Cigarettes 0.5 11 Smokeless Tobacco: Former Quit: User 06/29/2017 Tobacco Cessation: Ready to Quit: No; Counseling Given: Yes Alcohol Use Drinks/Week oz/Week Comments No 0 Standard 0.0 drinks or equivalent Sex Assigned at Date Recorded Not on file Last Filed Vital Signs Vital Sign Reading Time Taken Blood Pressure 101/81 07/20/2017 1:31 PM CDT Pulse 75 07/20/2017 1:31 PM CDT Temperature 37.1 C (98.7 F) 07/20/2017 1:31 PM CDT Respiratory Rate 18 07/20/2017 1:31 PM CDT Oxygen Saturation 99% 05/21/2016 8:39 AM CDT Inhaled Oxygen - - Concentration Weight 77.1 kg (170 lb) 07/20/2017 1:31 PM CDT Height 160 cm (5' 2.99") 07/20/2017 1:31 PM CDT Body Mass Index 30.12 07/20/2017 1:31 PM CDT Plan of Treatment Health Maintenance Due Date Last Done Comments PHYSICAL (COMPREHENSIVE) 1985 EXAM PERTUSSIS VACCINE 1989 HIV SCREENING 1993 TETANUS VACCINE 1995 CERVICAL CANCER SCREENING 2008 BREAST CANCER SCREENING 2018 INFLUENZA VACCINE 07/25/2018 09/06/2006 Results Not on filefrom Last 3 Months
[2018-05-17 00:13] LABS: BILIRUBIN,URINE NEGATIVE (NEGATIVE); CLARITY,URINE CLEAR; COLOR,URINE YELLOW; GLUCOSE, URINE (UA) NEGATIVE (NEGATIVE); KETONES,URINE NEGATIVE (NEGATIVE); LEUKOCYTE ESTERASE ,URINE 1+ (NEGATIVE); NITRITE,URINE NEGATIVE (NEGATIVE); PH,URINE 6 (5-9); PROTEIN,URINE NEGATIVE (NEGATIVE); UROBILINOGEN,URINE NORMAL (NORMAL)
[2018-05-17 00:15] LABS: BASOPHILS % (AUTO) 0 % (0-10); EOSINOPHILS # (AUTO) 0.4 10^3/uL (0.0-0.3); EOSINOPHILS % (AUTO) 4 % (0-10); HEMATOCRIT 36 % (35-52); HEMOGLOBIN 12.1 G/DL (11.5-16.0); LYMPHOCYTES # (AUTO) 4.3 X 10^3 (1.0-4.0); LYMPHOCYTES % (AUTO) 42 % (12-44); MEAN CORPUSCULAR HEMOGLOBIN 32 PG (25-34); MEAN CORPUSCULAR HGB CONC 34 G/DL (32-36); MEAN CORPUSCULAR VOLUME 94 FL (80-99); MEAN PLATELET VOLUME 8.5 FL (7.4-10.4); MONOCYTES # (AUTO) 0.7 X 10^3 (0.0-1.0); MONOCYTES % (AUTO) 7 % (0-12); NEUTROPHILS # (AUTO) 4.8 X 10^3 (1.8-7.8); NEUTROPHILS % (AUTO) 47 % (42-75); PLATELET COUNT 435 10^3/uL (130-400); RED BLOOD COUNT 3.84 10^6/uL (4.35-5.85); RED CELL DISTRIBUTION WIDTH 12.9 % (10.0-14.5); WHITE BLOOD COUNT 10.1 10^3/uL (4.3-11.0)
[2018-05-17 00:23] LABS: BACTERIA,URINE NEGATIVE /HPF; SQUAMOUS EPITHELIAL CELL,UR 0-2 /HPF
[2018-05-17 00:36] LABS: ALANINE AMINOTRANSFERASE 18 U/L (0-55); ALKALINE PHOSPHATASE 77 U/L (40-136); BILIRUBIN,TOTAL 0.4 MG/DL (0.1-1.0); BUN/CREATININE RATIO 10; CALCIUM 9.4 MG/DL (8.5-10.1); CARBON DIOXIDE 24 MMOL/L (21-32); CHLORIDE 107 MMOL/L (98-107); CREATININE SERUM 0.98 MG/DL (0.60-1.30); GFR ESTIMATED > 60; GLUCOSE 140 MG/DL (70-105); LIPASE 39 U/L (8-78); POTASSIUM 3.3 MMOL/L (3.6-5.0); SODIUM 141 MMOL/L (135-145); TOTAL PROTEIN 7.1 GM/DL (6.4-8.2)
--- NOTE | 2018-05-17 02:39 | ED Abdominal Pain ---
General Chief Complaint: Abdominal/GI Problems Stated Complaint: POSS HERNIA,PT HAS CROHNS Nursing Triage Note: patient reports something is poking of her abdomen Sepsis Screen: No Definite Risk Source of Information: Patient Exam Limitations: No Limitations History of Present Illness Date Seen by Provider: May 16, 2018 Time Seen by Provider: 23:47 Initial Comments This 38-year-old woman with history of Crohn's disease presents to the emergency room with right-sided abdominal pain. She had a small enlarged bowel resection performed in June [address] Wen in [place]. This temporarily improved her condition. Over the past week she complains of increasing right-sided abdominal pain and distention. She is concerned she may be developing a hernia. She does have bulging on the right side of her incisional scar with Valsalva. She reports having pain after eating and after going to the restroom. She is nauseated without vomiting. Her last bowel movement was this morning. Bowel movements over the last week have been more watery than usual. She denies any fever. Allergies and Home Medications Allergies Coded Allergies: NSAIDS (Non-Steroidal Anti-Inflamma (Verified Allergy, Intermediate, ) Penicillins (Verified Allergy, Mild, HIVES, 02/22/09) penicillin V (Unverified Allergy, Mild, 02/24/09) Sulfa (Sulfonamide Antibiotics) (Verified Allergy, Unknown, 01/17/14) BREAK OUT IN A RED RASH WITH VOMITING ketorolac tromethamine (Unverified Allergy, Unknown, 01/17/14) naproxen (Unverified Allergy, Unknown, 01/17/14) Uncoded Allergies: PCN (Allergy, Mild, 05/01/09) ANTI-INFLAMMATORY (Allergy, Unknown, 01/17/14) Home Medications Albuterol Sulfate 6.7 Gm Hfa.aer.ad, 2 PUFF IH Q6H PRN for SHORTNESS OF BREATH Prescribed by: IGNACIO SHIELDS on 01/31/181933 Loratadine 10 Mg Capsule, 10 MG PO DAILY, (Reported) Oseltamivir Phosphate 75 Mg Cap, 75 MG PO BID Prescribed by: IGNACIO SHIELDS on 01/31/181933 Oxycodone HCl/Acetaminophen 1 Each Tablet, 1 EACH PO Q4H PRN for PAIN-MODERATE TO SEVERE Prescribed by: ALMA SWEENEY on 05/17/18 0532 Prednisone 20 Mg Tab, 40 MG PO DAILY Prescribed by: IGNACIO SHIELDS on 01/31/18 1934 Patient Home Medication List Home Medication List Reviewed: Yes Review of Systems Constitutional: no symptoms reported EENTM: No Symptoms Reported Respiratory: No Symptoms Reported Cardiovascular: No Symptoms Reported Gastrointestinal: See HPI Genitourinary: No Symptoms Reported Musculoskeletal: no symptoms reported Skin: no symptoms reported Psychiatric/Neurological: No Symptoms Reported Endocrine: No Symptoms Reported Hematologic/Lymphatic: No Symptoms Reported Past Lpkodkp-Zgrkeo-Jjlefz Hx Patient Social History Alcohol Use: Denies Use Recreational Drug Use: No Type Used: Cigarettes 2nd Hand Smoke Exposure: Yes Recent Foreign Travel: No Contact w/Someone Who Travel: No Recent Infectious Disease Expo: No Recent Hopitalizations: No Immunizations Up To Date Tetanus Booster (TDap): Unknown PED Vaccines UTD: Yes Date of Pneumonia Vaccine: Nov 04, 2010 Date of Influenza Vaccine: Jul 12, 2011 Seasonal Allergies Seasonal Allergies: Yes Past Medical History Surgeries: Yes (BURN SURG, SMALL BOWEL RESECT, NASAL, RIGHT HIP) Abdominal, Appendectomy, Bowel Surgery, Section, Gallbladder, Hysterectomy, Orthopedic, 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 Respiratory: Yes Asthma Currently Using CPAP: No Currently Using BIPAP: No Cardiac: Yes Hypertension Neurological: No Reproductive Disorders: Yes (PCOS) 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, 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 Dis 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 Sexually Transmitted Disease: No HIV/AIDS: No Genitourinary: No Kidney Stones Gastrointestinal: Yes (chronic abdominal pain, nausea, vomiting, and diarrhea) Gastroesophageal Reflux, Crohns Disease, Pancreatitis, Ulcer Musculoskeletal: Yes Back Injury, Chronic Back Pain Endocrine: No HEENT: No Cancer: No Psychosocial: Yes Anxiety Integumentary: No Blood Disorders: No Adverse Reaction/Blood Tranf: No Family Medical History Family history: Diabetes mellitus 19 FATHER 19 MOTHER G8 SISTER No Pertinent Family Hx Physical Exam Vital Signs Vital Signs - First Documented 05/16/18 23:47 Temp 96.5 Pulse 91 Resp 18 B/P (MAP) 141/104 (116) Pulse Ox 98 Capillary Refill : Less Than 3 Seconds Height/Weight/BMI Height: 5'3.00" Weight: 186lbs. 9.0oz. 84.291280dl; 31.3 BMI Method:Stated General Appearance: WD/WN, no apparent distress HEENT: normal ENT inspection Respiratory: lungs clear, normal breath sounds, no respiratory distress, no accessory muscle use Cardiovascular: regular rate, rhythm, no edema, no murmur Gastrointestinal: normal bowel sounds, soft, tenderness (throughout the right lower quadrant. Palpation of the left abdomen produces pain in the right. 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 as tested, no motor/sensory deficits, alert, normal mood/affect, oriented x 3 Skin: normal color, warm/dry Progress/Results/Core Measures Results/Orders Lab Results Laboratory Tests Test 05/17/18 00:03 05/17/18 00:05 Range/Units Urine Color YELLOW Urine Clarity CLEAR Urine pH 6 5-9 Urine Specific [place] 1.015 L 1.016-1.022 Urine Protein NEGATIVE NEGATIVE Urine Glucose (UA) NEGATIVE NEGATIVE Urine Ketones NEGATIVE NEGATIVE Urine Nitrite NEGATIVE NEGATIVE Urine Bilirubin NEGATIVE NEGATIVE Urine Urobilinogen NORMAL NORMAL MG/DL Urine Leukocyte Esterase 1+ H NEGATIVE Urine RBC (Auto) NEGATIVE NEGATIVE Urine RBC NONE /HPF Urine WBC NONE /HPF Urine Squamous Epithelial Cells 0-2 /HPF Urine Crystals NONE /LPF Urine Bacteria NEGATIVE /HPF Urine Casts NONE /LPF Urine Mucus NEGATIVE /LPF Urine Culture Indicated NO White Blood Count 10.1 4.3-11.0 10^3/uL Red Blood Count 3.84 L 4.35-5.85 10^6/uL Hemoglobin 12.1 11.5-16.0 G/DL Hematocrit 36 35-52 % Mean Corpuscular Volume 94 80-99 FL Mean Corpuscular Hemoglobin 32 25-34 PG Mean Corpuscular Hemoglobin Concent 34 32-36 G/DL Red Cell Distribution Width 12.9 10.0-14.5 % Platelet Count 435 H 130-400 10^3/uL Mean Platelet Volume 8.5 7.4-10.4 FL Neutrophils (%) (Auto) 47 42-75 % Lymphocytes (%) (Auto) 42 12-44 % Monocytes (%) (Auto) 7 0-12 % Eosinophils (%) (Auto) 4 0-10 % Basophils (%) (Auto) 0 0-10 % Neutrophils # (Auto) 4.8 1.8-7.8 X 10^3 Lymphocytes # (Auto) 4.3 H 1.0-4.0 X 10^3 Monocytes # (Auto) 0.7 0.0-1.0 X 10^3 Eosinophils # (Auto) 0.4 H 0.0-0.3 10^3/uL Basophils # (Auto) 0.0 0.0-0.1 10^3/uL Erythrocyte Sedimentation Rate 14 0-20 MM/HR Sodium Level 141 135-145 MMOL/L Potassium Level 3.3 L 3.6-5.0 MMOL/L Chloride Level 107 98-107 MMOL/L Carbon Dioxide Level 24 21-32 MMOL/L Anion Gap 10 5-14 MMOL/L Blood Urea Nitrogen 10 7-18 MG/DL Creatinine 0.98 0.60-1.30 MG/DL Estimat Glomerular Filtration Rate > 60 BUN/Creatinine Ratio 10 Glucose Level 140 H 70-105 MG/DL Calcium Level 9.4 8.5-10.1 MG/DL Total Bilirubin 0.4 0.1-1.0 MG/DL Aspartate Amino Transf (AST/SGOT) 21 5-34 U/L Alanine Aminotransferase (ALT/SGPT) 18 0-55 U/L Alkaline Phosphatase 77 40-136 U/L C-Reactive Protein High Sensitivity 0.12 0.00-0.50 MG/DL Total Protein 7.1 6.4-8.2 GM/DL Albumin 4.0 3.2-4.5 GM/DL Lipase 39 8-78 U/L My Orders Orders - ALMA ORTEZ MD Cbc With Automated Diff (05/16/18 23:59) Comprehensive Metabolic Panel (05/16/18 23:59) Lipase (05/16/18 23:59) Ua Culture If Indicated (05/16/18 23:59) Saline Lock/Iv-Start (05/16/18 23:59) Abdomen, Flat & Upright/Decub (05/17/18 00:01) Hs C Reactive Protein (05/17/18 00:17) Erythrocyte Sedimentation Rate (05/17/18 00:17) Us Abdomen Limited 90204 (05/17/18 01:42) Fentanyl Injection (Sublimaze Injection (05/17/18 02:45) Ct Abdomen/Pelvis W (05/17/18 03:33) Iohexol Injection (Omnipaque 350 Mg/Ml 1 (05/17/18 04:00) Ns (Ivpb) (Sodium Chloride 0.9%) (05/17/18 04:00) Morphine Injection (Morphine Injection (05/17/18 05:15) Medications Given in ED Current Medications Medications Dose Ordered Sig/Dominga Route Start Time Stop Time Status Last Admin Dose Admin Fentanyl Citrate 50 mcg ONCE ONCE IVP 05/17/18 02:45 05/17/18 02:46 DC 05/17/18 02:49 50 MCG Iohexol 100 ml ONCE ONCE IV 05/17/18 04:00 05/17/18 04:01 DC 05/17/18 03:51 100 ML Morphine Sulfate 5 mg ONCE ONCE IVP 05/17/18 05:15 05/17/18 05:16 DC 05/17/18 05:11 5 MG Sodium Chloride 250 ml ONCE ONCE IV 05/17/18 04:00 05/17/18 04:01 DC 05/17/18 03:51 80 ML Vital Signs/I&O 05/16/18 05/17/18 23:47 05:37 Temp 96.5 96.5 Pulse 91 91 Resp 18 18 B/P (MAP) 141/104 (116) 141/104 (116) Pulse Ox 98 98 Blood Pressure Mean: 116 Progress Progress Note #1: Time: 02:46 Progress Note Patient was seen and examined. Labs and x-rays were ordered. No significant abnormalities were revealed. Further imaging options were discussed with the patient. She elected to proceed with an ultrasound. She has had numerous imaging studies performed in the past and we are trying to be conservative in regard to her radiation exposure. If ultrasound dictates CT is necessary we will consider CT at that time. We're waiting radiology interpretation. In the meantime patient is being given fentanyl for pain control. Progress Note #2: Time: 03:34 Progress Note Ultrasound revealed a periumbilical hernia without evidence of peristalsis. There is increase in size with Valsalva. Clinical correlation for tenderness and reducibility was recommended. Patient was reexamined and it was difficult to determine if there was reducibility. I discussed risks and benefits of CT with the patient. Given the circumstances and the unclear ultrasound report, patient would like to proceed with CT scan. She did receive fentanyl for pain. Progress Note #3: Progress Note Patient was given morphine for further pain control. CT revealed an increase size of her abdominal wall hernia but no involvement of the bowel. Patient's symptoms were treated and she is being referred back to her surgeon and primary care provider. Diagnostic Imaging Diagonstic Imaging: Xray Plain Films/CT/US/NM/MRI: abdomen, pelvis Comments Abdominal x-ray viewed by me. Report not yet available. No acute abnormalities appreciated. Diagonstic Imaging: Ultrasound Plain Films/CT/US/NM/MRI: abdomen Comments Ultrasound of the abdomen showed appearance of periumbilical hernia without evidence of peristalsis. There does appear to be slow but increase in size with Valsalva. Clinical correlation for focal tenderness and reducibility was recommended. Diagonstic Imaging: CT Plain Films/CT/US/NM/MRI: abdomen, pelvis Comments CT abdomen and pelvis viewed by me and [facility] report reviewed. Increased size in umbilical hernia noted. No incarceration of the bowel within the hernia. No other acute abnormalities were appreciated. Departure Impression Primary Impression: Umbilical hernia Qualified Codes: K42.9 - Umbilical hernia without obstruction or gangrene Additional Impressions: Right lower quadrant pain Crohns disease Qualified Codes: K50.919 - Crohn's disease, unspecified, with unspecified complications Disposition: HOME, SELF-CARE Condition: Improved Departure-Patient Inst. Decision time for Depature: 05:25 Referrals: ROSANGELA ARMAS DO (PCP/Family) Primary Care Physician Patient Instructions: Abdominal Hernia (DC) Add. Discharge Instructions: Your umbilical hernia contains only fat and has had some interval increase in size from your prior CT. There is no bowel involvement that would require immediate intervention. Your increase in pain may be due to the increased size of the hernia and/or exacerbation of Crohn's disease. Please follow-up with Dr. Armas and Dr. Wen as soon as possible. Return to care if symptoms are worsening. All discharge instructions reviewed with patient and/or family. Voiced understanding. Scripts Oxycodone HCl/Acetaminophen (Percocet 5-325 mg Tablet) 1 Each Tablet 1 EACH PO Q4H PRN for PAIN-MODERATE TO SEVERE, #10 TAB Prov: ALMA ORTEZ MD 05/17/18 Copy Copies To 1: ROSANGELA ARMAS JOSHUA T MD May 17, 2018 02:39
[2018-05-17] MEDS ORDERED: fentaNYL INJECTION 100 MCG/2 ML AMP IVP ONE (02:45)
[2018-05-17] MEDS ORDERED: IOHEXOL 350 MG/ML 100 ML (OMNIPAQUE 350) VIAL IV ONE (04:00)
[2018-05-17] MEDS ORDERED: NS 250 ML (IVPB) BAG IV ONE (04:00)
[2018-05-17] MEDS ORDERED: morphine INJ 10 MG/ML 1ML (SYR OR VIAL) IVP ONE (05:15)
[2018-05-17] MEDS ORDERED: OXYC-197 PO (05:32)
[2018-05-17 05:37] VITALS: BP 141/104
--- NOTE | 2018-05-17 06:49 | Diagnostic Imaging Report ---
PROCEDURE: CT abdomen and pelvis with contrast. TECHNIQUE: Multiple contiguous axial images were obtained through the abdomen and pelvis after administration of intravenous contrast. DATE: May 17, 2018. COMPARISON: Ultrasound May 17, 2018. CT abdomen and pelvis April 27, 2017. INDICATION: 38-year-old female, mid abdominal pain and bloating for 2 weeks. History of Crohn's disease. FINDINGS: The visualized portions of the lung bases are clear. The heart is not enlarged. There is no pericardial effusion. The liver appears diffusely low in attenuation compatible with diffuse fatty infiltration of the liver. The outer liver contours are not grossly nodular. The main, right, and left portal veins are patent. There is no identified liver lesion. The patient is status post cholecystectomy. There is no intrahepatic or extrahepatic bile duct dilation. The main pancreatic duct is not abnormally dilated. Unremarkable appearance of the pancreatic parenchyma. The spleen is not enlarged. The adrenal glands are unremarkable. There is a low-attenuation left renal lesion on axial image 39 which measures 10 mm in size. Internal attenuation is measured at 16 Hounsfield units which does not meet strict diagnostic criteria for definite diagnosis of renal cyst. This lesion is increased in size since the comparison exam. The urinary collecting systems are not distended. There is no identified renal or ureteral stone. The urinary bladder is unremarkable. The uterus is not seen and may be surgically absent. There is rectus muscle diastases. There is a fat-containing right periumbilical hernia. There are sutures at the level of the right colon which may reflect partial right colectomy. There is no identified abnormal bowel wall thickening. There is no distention of the intestinal tract. There is no free intraperitoneal air. There is no drainable fluid collection. There is no free pelvic fluid. There is no identified abnormally enlarged lymph node within the abdomen or pelvis which meets CT size criteria for adenopathy. There is no identified acute bony abnormality. IMPRESSION: CT ABDOMEN AND PELVIS. 1. Diffuse fatty infiltration of the liver. 2. Rectus muscle diastases with fat-containing right periumbilical hernia. 3. Postoperative changes at the level of the right colon. No evidence of active colitis or enteritis. Dictated by: Dictated on workstation # [id number]
--- NOTE | 2018-05-17 06:55 | Diagnostic Imaging Report ---
EXAM: Ultrasound abdomen limited. DATE: May 17, 2018. INDICATION: 38-year-old female, right abdominal lump. Evaluation for hernia. COMPARISON: CT abdomen and pelvis April 27, 2017. FINDINGS: Targeted ultrasound evaluation at the area of focal concern was performed which is at the level of the umbilicus. There is a fat-containing right periumbilical hernia. IMPRESSION: 1. Fat-containing right periumbilical hernia. Dictated by: Dictated on workstation # [id number]
--- NOTE | 2018-05-17 07:04 | Diagnostic Imaging Report ---
EXAMINATION: Abdominal radiographs, upright and supine views, 3 images. DATE: May 17, 2018. CLINICAL INDICATION: 38-year-old female, mid abdominal pain and bloating for 2 weeks. COMPARISON: June 18, 2017. COMMENTS: Right upper quadrant surgical clips likely reflect prior cholecystectomy. There are gas-filled segments of large bowel which are not abnormally distended. There are sutures at the level of the right colon. There is no identified free intraperitoneal air, portal venous gas, or pneumatosis. There are pelvic calcifications likely reflecting phleboliths. There is no identified abnormal radiodensity overlying the kidneys or expected positions of the ureters. IMPRESSION: 1. No identified acute abdominal radiographic abnormality. Dictated by: Dictated on workstation # [id number]
== END 2018-05-17 05:38 | disposition home or self-care (01) ==
LOC: EDUNIT# 23:08 → ER 23:11
DX: K42.9 Umbilical hernia without obstruction or gangrene (principal); K50.90 Crohn's disease, unspecified, without complications; J45.909 Unspecified asthma, uncomplicated; I10 Essential (primary) hypertension; K21.9 Gastro-esophageal reflux disease without esophagitis; F41.9 Anxiety disorder, unspecified; Z87.19 Personal history of other diseases of the digestive system; Z87.442 Personal history of urinary calculi; Z87.448 Personal history of other diseases of urinary system; Z88.6 Allergy status to analgesic agent; Z88.0 Allergy status to penicillin; Z88.2 Allergy status to sulfonamides; Z88.4 Allergy status to anesthetic agent; Z88.8 Allergy status to other drugs, medicaments and biological substances; Z90.49 Acquired absence of other specified parts of digestive tract; Z79.51 Long term (current) use of inhaled steroids; Z79.52 Long term (current) use of systemic steroids; Z77.22 Contact with and (suspected) exposure to environmental tobacco smoke (acute) (chronic); Z90.89 Acquired absence of other organs; Z87.59 Personal history of other complications of pregnancy, childbirth and the puerperium; Z90.710 Acquired absence of both cervix and uterus; Z98.51 Tubal ligation status
CPT/HCPCS: 36415; 74019; 74177; 76705; 80053; 81000; 83690; 85025; 85652; 86141; 96374; 96375

== ENCOUNTER 2018-07-05 20:50 | Emergency (ER) | payer MEDICAID ==
[~2018-07-05] VITALS: Ht 160 cm; Wt 83.9 kg
[~2018-07-05 20:50] MED LIST changes: -BENZ-13 PO; +BENZ100C18 PO; +HYDR-4226 PO; -HYDR-757 PO; -OXYC-197 PO; +OXYC1TAB87 PO
--- OUTSIDE RECORDS SUMMARY | 2018-07-05 21:00 | XMS REPORT | Encounter Summary ---
Author Author [facility] Organization [facility] Address Unknown Phone Unavailable Care Team Providers Care Contract Manager Name Role Phone Barber Nguyen MD Unavailable Naveed Lockhart DO PCP Mychart, Generic Provider Unavailable Unavailable Mary Gomez Unavailable Unavailable Loreta Mcfadden Unavailable Reason for Visit * Reason Comments Medication Refill Encounter Details Date Type Department Care Team Description 05/03/2018 Refill [facility] Moncho Odonnell MD Physicians [address] [facility] [place] [address] [place] [address] [address] [place] [facility] [phone] [place] [address] Social History Tobacco Use Types [...]
--- OUTSIDE RECORDS SUMMARY | 2018-07-05 21:00 | XMS REPORT | Clinical Summary ---
Author Author [facility] Organization [facility] Address Unknown Phone Unavailable Care Team Providers Care Vp Lab Name Role Phone Barber Nguyen MD Unavailable Naveed Lockhart DO PCP Mychart, Generic Provider Unavailable Unavailable Mary Gomez Unavailable Unavailable Loreta Mcfadden Unavailable Source Comments Some departments are not documenting in the electronic medical record. If you do not see the information that you expected, contact Release of Information in the Health Information Management department at [phone] for further assistance in locating additional records.[facility] Allergies Active Allergy Reactions Severity Noted Date [...] 40 mg capsule DAILY BEFORE BREAKFAST 18 Active Problems Problem Noted Date Inadequate material [...]
--- OUTSIDE RECORDS SUMMARY | 2018-07-05 21:19 | XMS REPORT | Continuity of Care Document ---
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 Ot F17.210 NICOTINE DEPENDENCE, CIGARETTES, UNCOMPL 04/30/2017 TREASURELENWELCH, ROSANGELA Mendieta Ot I10 ESSENTIAL (PRIMARY) HYPERTENSION 04/30/2017 GELLENDER DO, ROSANGELA Mendieta Ot J45.909 UNSPECIFIED ASTHMA, UNCOMPLICATED 04/30/2017 GELLENDER DO, ROSANGELA Mendieta Ot K50.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, UNSPECIFIED, WITHOUT CO 04/30/2017 TREASURELENWELCH, ROSANGELA Mendieta Ot K52.9 NONINFECTIVE GASTROENTERITIS AND COLITIS 04/30/2017 TREASURELENDER , ROSANGELA Mendieta Ot Z87.19 PERSONAL HISTORY OF OTHER DISEASES OF TH 04/30/2017 CHANDA LEE, ROSANGEAL Mendieta Ot Z87.442 PERSONAL HISTORY OF URINARY CALCULI 04/30/2017 TREASURELENDER , ROSANGELA Mendieta Ot 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 BOTH CERVIX AND UTER 04/30/2017 TREASURELENDER DO, ROSANGELA Mendieta Ot Z98.51 TUBAL LIGATION STATUS 06/19/2017 PÉREZ BARRIENTOS, ALMA Morfin Ot F17.210 NICOTINE DEPENDENCE, CIGARETTES, UNCOMPL 06/19/2017 ALMA ORTEZ MD Ot F41.9 ANXIETY DISORDER, UNSPECIFIED 06/19/2017 ALMA ORTEZ MD Ot I10 ESSENTIAL (PRIMARY) HYPERTENSION 06/19/2017 ALMA ORTEZ MD Ot J45.909 UNSPECIFIED ASTHMA, UNCOMPLICATED 06/19/2017 ALMA ORTEZ MD Ot K21.9 GASTRO-ESOPHAGEAL REFLUX DISEASE WITHOUT 06/19/2017 ALMA ORTEZ MD Ot 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, UNSPECIFIED, WITH RECTA 06/19/2017 ALMA ORTEZ MD Ot K92.1 MELENA 06/19/2017 ALMA ORTEZ MD Ot Z87.42 PERSONAL HISTORY OF OTH DISEASES OF THE 06/19/2017 ALMA ORTEZ MD Ot Z87.442 PERSONAL HISTORY OF URINARY CALCULI 06/19/2017 ALMA ORTEZ MD, Ot Z87.59 PERSONAL HISTORY OF COMP OF PREG, CHLDBR 06/19/2017 ALMA ORTEZ MD Ot Z87.828 PERSONAL HISTORY OF OTH (HEALED) PHYSICA 06/19/2017 ALMA ORTEZ MD Ot Z90.49 ACQUIRED ABSENCE OF OTHER SPECIFIED PART 06/19/2017 ALMA ORTEZ MD Ot 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 BOTH CERVIX AND UTER 06/19/2017 ALMA ORTEZ MD Ot Z98.51 TUBAL LIGATION STATUS 06/22/2017 ALMA ORTEZ MD Ot F17.210 NICOTINE DEPENDENCE, CIGARETTES, UNCOMPL 06/22/2017 ALMA ORTEZ MD, Ot F41.9 ANXIETY DISORDER, UNSPECIFIED 06/22/2017 ALMA ORTEZ MD Ot I10 ESSENTIAL (PRIMARY) HYPERTENSION 06/22/2017 ALMA ORTEZ MD Ot J45.909 UNSPECIFIED ASTHMA, UNCOMPLICATED 06/22/2017 ALMA ORTEZ MD Ot K21.9 GASTRO-ESOPHAGEAL REFLUX DISEASE WITHOUT 06/22/2017 ALMA ORTEZ MD Ot 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, UNSPECIFIED, WITH RECTA 06/22/2017 ALMA ORTEZ MD Ot K92.1 MELENA 06/22/2017 ALMA ORTEZ MD Ot Z87.42 PERSONAL HISTORY OF OTH DISEASES OF THE 06/22/2017 ALMA ORTEZ MD Ot Z87.442 PERSONAL HISTORY OF URINARY CALCULI 06/22/2017 ALMA ORTEZ MD Ot Z87.59 PERSONAL HISTORY OF COMP OF PREG, CHLDBR 06/22/2017 ALMA ORTEZ MD Ot Z87.828 PERSONAL HISTORY OF OTH (HEALED) PHYSICA 06/22/2017 ALMA ORTEZ MD Ot Z90.49 ACQUIRED ABSENCE OF OTHER SPECIFIED PART 06/22/2017 ALMA ORTEZ MD Ot 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 BOTH CERVIX AND UTER 06/22/2017 ALMA ORTEZ MD Ot Z98.51 TUBAL LIGATION STATUS 07/05/2017 ALMA ORTEZ MD, Ot F41.9 ANXIETY DISORDER, UNSPECIFIED 07/05/2017 ALMA ORTEZ MD, Ot I10 ESSENTIAL (PRIMARY) HYPERTENSION 07/05/2017 ALMA ORTEZ MD Ot J45.909 UNSPECIFIED ASTHMA, UNCOMPLICATED 07/05/2017 ALMA ORTEZ MD, Ot K21.9 GASTRO-ESOPHAGEAL REFLUX DISEASE WITHOUT 07/05/2017 ALMA ORTEZ MD Ot R06.00 DYSPNEA, UNSPECIFIED 07/05/2017 ALMA ORTEZ MD Ot R07.89 OTHER CHEST PAIN 07/05/2017 ALMA ORTEZ MD, Ot Z77.22 CNTCT W AND EXPSR TO ENVIRON TOBACCO SMO 07/05/2017 ALMA ORTEZ MD Ot Z87.19 PERSONAL HISTORY OF OTHER DISEASES OF TH 07/05/2017 ALMA ORTEZ MD Ot Z87.448 PERSONAL HISTORY OF OTHER DISEASES OF UR 07/05/2017 ALMA ORTEZ MD, Ot Z90.49 ACQUIRED ABSENCE OF OTHER SPECIFIED PART 07/05/2017 ALMA ORTEZ MD Ot 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 BOTH CERVIX AND UTER 07/05/2017 ALMA ORTEZ MD Ot Z95.828 PRESENCE OF OTHER VASCULAR IMPLANTS AND 07/05/2017 ALMA ORTEZ MD Ot Z98.51 TUBAL LIGATION STATUS 07/06/2017 ALMA ORTEZ MD, Ot F41.9 ANXIETY DISORDER, UNSPECIFIED 07/06/2017 ALMA ORTEZ MD, Ot I10 ESSENTIAL (PRIMARY) HYPERTENSION 07/06/2017 ALMA ORTEZ MD Ot J45.909 UNSPECIFIED ASTHMA, UNCOMPLICATED 07/06/2017 ALMA ORTEZ MD, Ot K21.9 GASTRO-ESOPHAGEAL REFLUX DISEASE WITHOUT 07/06/2017 ALMA ORTEZ MD Ot R06.00 DYSPNEA, UNSPECIFIED 07/06/2017 ALMA ORTEZ MD Ot R07.89 OTHER CHEST PAIN 07/06/2017 ALMA ORTEZ MD, Ot Z77.22 CNTCT W AND EXPSR TO ENVIRON TOBACCO SMO 07/06/2017 ALMA ORTEZ MD, Ot Z87.19 PERSONAL HISTORY OF OTHER DISEASES OF TH 07/06/2017 ALMA ORTEZ MD Ot Z87.448 PERSONAL HISTORY OF OTHER DISEASES OF UR 07/06/2017 ALMA ORTEZ MD Ot Z90.49 ACQUIRED ABSENCE OF OTHER SPECIFIED PART 07/06/2017 ALMA ORTEZ MD Ot 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 BOTH CERVIX AND UTER 07/06/2017 ALMA ORTEZ MD Ot Z95.828 PRESENCE OF OTHER VASCULAR IMPLANTS AND 07/06/2017 ALMA ORTEZ MD Ot Z98.51 TUBAL LIGATION STATUS 07/06/2017 ALMA ORTEZ MD, Ot F41.9 ANXIETY DISORDER, UNSPECIFIED 07/06/2017 ALMA ORTEZ MD, Ot I10 ESSENTIAL (PRIMARY) HYPERTENSION 07/06/2017 ALMA ORTEZ MD, Ot J45.909 UNSPECIFIED ASTHMA, UNCOMPLICATED 07/06/2017 ALMA ORTEZ MD, Ot K21.9 GASTRO-ESOPHAGEAL REFLUX DISEASE WITHOUT 07/06/2017 ALMA ORTEZ MD Ot R06.00 DYSPNEA, UNSPECIFIED 07/06/2017 ALMA ORTEZ MD Ot R07.89 OTHER CHEST PAIN 07/06/2017 ALMA ORTEZ MD, Ot Z77.22 CNTCT W AND EXPSR TO ENVIRON TOBACCO SMO 07/06/2017 ALMA ORTEZ MD, Ot Z87.19 PERSONAL HISTORY OF OTHER DISEASES OF TH 07/06/2017 ALMA ORTEZ MD Ot Z87.448 PERSONAL HISTORY OF OTHER DISEASES OF UR 07/06/2017 ALMA ORTEZ MD Ot Z90.49 ACQUIRED ABSENCE OF OTHER SPECIFIED PART 07/06/2017 ALMA ORTEZ MD Ot 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 BOTH CERVIX AND UTER 07/06/2017 ALMA ORTEZ MD Ot Z95.828 PRESENCE OF OTHER VASCULAR IMPLANTS AND 07/06/2017 ALMA ORTEZ MD Ot Z98.51 TUBAL LIGATION STATUS 02/02/2018 IGNACIO GIORDANO Ot F41.9 ANXIETY DISORDER, UNSPECIFIED 02/02/2018 IGNACIO GIORDANO Ot J10.1 FLU DUE TO OTH IDENT INFLUENZA VIRUS W O 02/02/2018 IGNACIO GIORDANO Ot J45.909 UNSPECIFIED ASTHMA, UNCOMPLICATED 02/02/2018 IGNACIO GIORDANO Ot R50.9 FEVER, UNSPECIFIED 02/02/2018 IGNACIO GIORDANO Ot Z87.19 PERSONAL HISTORY OF OTHER DISEASES OF TH 02/02/2018 IGNACIO GIORDANO Ot Z87.42 PERSONAL HISTORY OF OTH DISEASES OF THE 02/02/2018 IGNACIO GIORDANO Ot Z87.442 PERSONAL HISTORY OF URINARY CALCULI 02/02/2018 IGNACIO GIORDANO Ot Z87.59 PERSONAL HISTORY OF COMP OF PREG, CHLDBR 02/02/2018 IGNACIO GIORDANO Ot Z87.828 PERSONAL HISTORY OF OTH (HEALED) PHYSICA 02/02/2018 IGNACIO GIORDANO Ot Z87.891 PERSONAL HISTORY OF NICOTINE DEPENDENCE 02/02/2018 IGNACIO GIORDANO Ot Z88.0 ALLERGY STATUS TO PENICILLIN 02/02/2018 IGNACIO GIORDANO Ot Z88.2 ALLERGY STATUS TO SULFONAMIDES STATUS 02/02/2018 IGNACIO GIORDANO Ot Z88.6 ALLERGY STATUS TO ANALGESIC AGENT STATUS 02/02/2018 IGNACIO GIORDANO Ot Z88.8 ALLERGY STATUS TO OTH DRUG/MEDS/BIOL SUB 02/02/2018 IGNACIO GIORDANO Ot Z90.49 ACQUIRED ABSENCE OF OTHER SPECIFIED PART 02/02/2018 IGNACIO GIORDANO Ot 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 BOTH CERVIX AND UTER 02/02/2018 IGNACIO GIORDANO Ot Z98.51 TUBAL LIGATION STATUS 05/17/2018 ALMA ORTEZ MD Ot F41.9 ANXIETY DISORDER, UNSPECIFIED 05/17/2018 ALMA ORTEZ MD Ot I10 ESSENTIAL (PRIMARY) HYPERTENSION 05/17/2018 ALMA ORTEZ MD Ot J45.909 UNSPECIFIED ASTHMA, UNCOMPLICATED 05/17/2018 ALMA ORTEZ MD, Ot K21.9 GASTRO-ESOPHAGEAL REFLUX DISEASE WITHOUT 05/17/2018 ALMA ORTEZ MD, Ot K42.9 UMBILICAL HERNIA WITHOUT OBSTRUCTION OR 05/17/2018 ALMA ORTEZ MD, Ot K50.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, UNSPECIFIED, WITHOUT CO 05/17/2018 ALMA ORTEZ MD, Ot R10.9 UNSPECIFIED ABDOMINAL PAIN 05/17/2018 ALMA ORTEZ MD, Ot Z77.22 CNTCT W AND EXPSR TO ENVIRON TOBACCO SMO 05/17/2018 ALMA ORTEZ MD, Ot Z79.51 MANUFACTURING PROJECT MANAGER (CURRENT) USE OF INHALED STERO 05/17/2018 LAMA ORTEZ MD, Ot Z79.52 MANUFACTURING PROJECT MANAGER (CURRENT) USE OF SYSTEMIC STER 05/17/2018 ALMA ORTEZ MD, Ot Z87.19 PERSONAL HISTORY OF OTHER DISEASES OF TH 05/17/2018 ALMA ORTEZ MD, Ot Z87.442 PERSONAL HISTORY OF URINARY CALCULI 05/17/2018 ALMA ORTEZ MD, Ot Z87.448 PERSONAL HISTORY OF OTHER DISEASES OF UR 05/17/2018 ALMA ORTEZ MD, Ot Z87.59 PERSONAL HISTORY OF COMP OF PREG, CHLDBR 05/17/2018 ALMA ORTEZ MD, Ot Z88.0 ALLERGY STATUS TO PENICILLIN 05/17/2018 ALMA ORTEZ MD, Ot Z88.2 ALLERGY STATUS TO SULFONAMIDES STATUS 05/17/2018 ALMA ORTEZ MD, Ot Z88.4 ALLERGY STATUS TO ANESTHETIC AGENT STATU 05/17/2018 ALMA ORTEZ MD, Ot Z88.6 ALLERGY STATUS TO ANALGESIC AGENT STATUS 05/17/2018 ALMA ORTEZ MD, Ot Z88.8 ALLERGY STATUS TO OTH DRUG/MEDS/BIOL SUB 05/17/2018 ALMA ORTEZ MD, Ot Z90.49 ACQUIRED ABSENCE OF OTHER SPECIFIED PART 05/17/2018 ALMA ORTEZ MD, Ot 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 BOTH CERVIX AND UTER 05/17/2018 ALMA ORTEZ MD, Ot Z90.89 ACQUIRED ABSENCE OF OTHER ORGANS 05/17/2018 ALMA ORTEZ MD, Ot Z98.51 TUBAL LIGATION STATUS 05/18/2018 ALMA ORTEZ MD, Ot F41.9 ANXIETY DISORDER, UNSPECIFIED 05/18/2018 ALMA ORTEZ MD, Ot I10 ESSENTIAL (PRIMARY) HYPERTENSION 05/18/2018 ALMA ORTEZ MD, Ot J45.909 UNSPECIFIED ASTHMA, UNCOMPLICATED 05/18/2018 ALMA ORTEZ MD, Ot K21.9 GASTRO-ESOPHAGEAL REFLUX DISEASE WITHOUT 05/18/2018 ALMA ORTEZ MD, Ot K42.9 UMBILICAL HERNIA WITHOUT OBSTRUCTION OR 05/18/2018 ALMA ORTEZ MD, Ot K50.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, UNSPECIFIED, WITHOUT CO 05/18/2018 ALMA ORTEZ MD, Ot R10.9 UNSPECIFIED ABDOMINAL PAIN 05/18/2018 ALMA ORTEZ MD, Ot Z77.22 CNTCT W AND EXPSR TO ENVIRON TOBACCO SMO 05/18/2018 ALMA ORTEZ MD, Ot Z79.51 DETENTION (CURRENT) USE OF INHALED STERO 05/18/2018 ALMA ORTEZ MD, Ot Z79.52 DETENTION (CURRENT) USE OF SYSTEMIC STER 05/18/2018 ALMA ORTEZ MD, Ot Z87.19 PERSONAL HISTORY OF OTHER DISEASES OF TH 05/18/2018 ALMA ORTEZ MD, Ot Z87.442 PERSONAL HISTORY OF URINARY CALCULI 05/18/2018 ALMA ORTEZ MD, Ot Z87.448 PERSONAL HISTORY OF OTHER DISEASES OF UR 05/18/2018 ALMA ORTEZ MD, Ot Z87.59 PERSONAL HISTORY OF COMP OF PREG, CHLDBR 05/18/2018 ALMA ORTEZ MD, Ot Z88.0 ALLERGY STATUS TO PENICILLIN 05/18/2018 ALMA ORTEZ MD, Ot Z88.2 ALLERGY STATUS TO SULFONAMIDES STATUS 05/18/2018 ALMA ORTEZ MD, Ot Z88.4 ALLERGY STATUS TO ANESTHETIC AGENT STATU 05/18/2018 ALMA ORTEZ MD, Ot Z88.6 ALLERGY STATUS TO ANALGESIC AGENT STATUS 05/18/2018 ALMA ORTEZ MD, Ot Z88.8 ALLERGY STATUS TO OTH DRUG/MEDS/BIOL SUB 05/18/2018 ALMA ORTEZ MD, Ot Z90.49 ACQUIRED ABSENCE OF OTHER SPECIFIED PART 05/18/2018 ALMA ORTEZ MD, Ot 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 BOTH CERVIX AND UTER 05/18/2018 ALMA ORTEZ MD, Ot Z90.89 ACQUIRED ABSENCE OF OTHER ORGANS 05/18/2018 ALMA ORTEZ MD, Ot Z98.51 TUBAL LIGATION STATUS Procedures Code Description Performed By Performed On 17.39 OTHER LAPAROSCOPIC PARTIAL EXCISION OF L 08/30/2009 45.93 [id number] BOWEL NEC 08/30/2009 45.25 CLOSED ENDOSCOPIC BIOPSY OF LARGE INTEST 04/20/2010 Results Test Result Range Complete blood count (CBC) with automated white blood cell (WBC) differential - 06/14/16 23:15 Blood leukocytes automated count (number/volume) 10.2 10*3/uL 4.3-11.0 Blood erythrocytes automated count (number/volume) 4.51 10*6/uL 4.35-5.85 Venous blood hemoglobin measurement (mass/volume) 14.3 [...] Automated blood platelet mean volume measurement 8.4 [foz_us] 7.4-10.4 Automated blood neutrophils/100 leukocytes 49 % [...] Serum or plasma sodium measurement (moles/volume) 143 mmol/L 135-145 Serum or plasma potassium measurement (moles/volume) 3.3 mmol/L 3.6-5.0 Serum or plasma chloride measurement (moles/volume) 107 mmol/L 98-107 Carbon dioxide 22 mmol/L 21-32 Serum or plasma anion gap determination (moles/volume) 14 mmol/L 5-14 Serum or plasma urea nitrogen measurement (mass/volume) 5 mg/dL 7-18 Serum or plasma creatinine measurement (mass/volume) 0.77 mg/dL 0.60-1.30 Serum or plasma urea nitrogen/creatinine mass [...] or plasma amylase measurement (enzymatic activity/volume) 43 U /L 25-125 Lipase - 06/14/16 23:15 Lipase 14 U/L 8-78 Complete blood count (CBC) with automated white blood cell (WBC) differential - 07/05/16 16:45 Blood leukocytes automated count (number/volume) 13.0 10*3/uL 4.3-11.0 Blood erythrocytes automated count (number/volume) 5.06 10*6/uL 4.35-5.85 Venous blood hemoglobin measurement (mass/volume) 15.8 [...] Automated blood platelet mean volume measurement 8.8 [foz_us] 7.4-10.4 Automated blood neutrophils/100 leukocytes 84 % [...] Serum or plasma sodium measurement (moles/volume) 138 mmol/L 135-145 Serum or plasma potassium measurement (moles/volume) 3.1 mmol/L 3.6-5.0 Serum or plasma chloride measurement (moles/volume) 106 mmol/L 98-107 Carbon dioxide 20 mmol/L 21-32 Serum or plasma anion gap determination (moles/volume) 12 mmol/L 5-14 Serum or plasma urea nitrogen measurement (mass/volume) 6 mg/dL 7-18 Serum or plasma creatinine measurement (mass/volume) 0.76 mg/dL 0.60-1.30 Serum or plasma urea nitrogen/creatinine mass [...] plasma C reactive protein measurement (mass/volume) 1.69 mg /dL 0.00-0.50 Complete urinalysis with reflex to culture - 07/05/16 18:05 Urine color determination YELLOW NRG Urine clarity determination CLEAR NRG Urine pH measurement by test strip 6 5-9 Specific gravity of urine by test strip 1.025 1.016- 1.022 Urine protein assay by test strip, semi-quantitative [...] Serum or plasma sodium measurement (moles/volume) 142 mmol/L 135-145 Serum or plasma potassium measurement (moles/volume) 3.4 mmol/L 3.6-5.0 Serum or plasma chloride measurement (moles/volume) 105 mmol/L 98-107 Carbon dioxide 29 mmol/L 21-32 Serum or plasma anion gap determination (moles/volume) 8 mmol/L 5-14 Serum or plasma urea nitrogen measurement (mass/volume) 13 mg/dL 7-18 Serum or plasma creatinine measurement (mass/volume) 0.90 mg/dL 0.60-1.30 Serum or plasma urea nitrogen/creatinine mass [...] plasma C reactive protein measurement (mass/volume) 0.31 mg /dL 0.00-0.50 Complete blood count (CBC) with automated white blood cell (WBC) differential - 08/26/16 17:15 Blood leukocytes automated count (number/volume) 14.6 10*3/uL 4.3-11.0 Blood erythrocytes automated count (number/volume) 4.70 10*6/uL 4.35-5.85 Venous blood hemoglobin measurement (mass/volume) 14.6 [...] Automated blood platelet mean volume measurement 9.0 [foz_us] 7.4-10.4 Automated blood neutrophils/100 leukocytes 68 % [...] Urine pH measurement by test strip 6 5-9 Specific gravity of urine by test strip 1.015 1.016- 1.022 Urine protein assay by test strip, semi-quantitative [...] 14:40 Blood leukocytes automated count (number/volume) 8.5 10*3/uL 4.3-11.0 Blood erythrocytes automated count (number/volume) 4.48 10*6/uL 4.35-5.85 Venous blood hemoglobin measurement (mass/volume) 14.0 [...] Automated blood platelet mean volume measurement 8.9 [foz_us] 7.4-10.4 Automated blood neutrophils/100 leukocytes 54 % [...] Serum or plasma sodium measurement (moles/volume) 142 mmol/L 135-145 Serum or plasma potassium measurement (moles/volume) 3.6 mmol/L 3.6-5.0 Serum or plasma chloride measurement (moles/volume) 110 mmol/L 98-107 Carbon dioxide 24 mmol/L 21-32 Serum or plasma anion gap determination (moles/volume) 8 mmol/L 5-14 Serum or plasma urea nitrogen measurement (mass/volume) 10 mg/dL 7-18 Serum or plasma creatinine measurement (mass/volume) 0.81 mg/dL 0.60-1.30 Serum or plasma urea nitrogen/creatinine mass [...] plasma C reactive protein measurement (mass/volume) 0.35 mg /dL 0.00-0.50 Erythrocyte sedimentation rate by westergren method - 09/12/16 14:40 Erythrocyte sedimentation rate by westergren method 7 mm 0-20 Complete urinalysis with reflex to culture - 09/12/16 15:45 Urine color determination YELLOW NRG Urine clarity determination CLEAR NRG Urine pH measurement by test strip 6 5-9 Specific gravity of urine by test strip 1.010 1.016- 1.022 Urine protein assay by test strip, semi-quantitative [...] 15:45 Blood leukocytes automated count (number/volume) 11.6 10*3/uL 4.3-11.0 Blood erythrocytes automated count (number/volume) 4.58 10*6/uL 4.35-5.85 Venous blood hemoglobin measurement (mass/volume) 14.3 [...] Automated blood platelet mean volume measurement 8.7 [foz_us] 7.4-10.4 Automated blood neutrophils/100 leukocytes 56 % [...] Serum or plasma sodium measurement (moles/volume) 143 mmol/L 135-145 Serum or plasma potassium measurement (moles/volume) 3.7 mmol/L 3.6-5.0 Serum or plasma chloride measurement (moles/volume) 107 mmol/L 98-107 Carbon dioxide 26 mmol/L 21-32 Serum or plasma anion gap determination (moles/volume) 10 mmol/L 5-14 Serum or plasma urea nitrogen measurement (mass/volume) 6 mg/dL 7-18 Serum or plasma creatinine measurement (mass/volume) 0.79 mg/dL 0.60-1.30 Serum or plasma urea nitrogen/creatinine mass [...] plasma C reactive protein measurement (mass/volume) 0.37 mg /dL 0.00-0.50 Blood manual differential performed detection - [...] Urine pH measurement by test strip 5 5-9 Specific gravity of urine by test strip 1.025 1.016- 1.022 Urine protein assay by test strip, semi-quantitative [...] 21:05 Blood leukocytes automated count (number/volume) 10.6 10*3/uL 4.3-11.0 Blood erythrocytes automated count (number/volume) 4.15 10*6/uL 4.35-5.85 Venous blood hemoglobin measurement (mass/volume) 13.1 [...] Automated blood platelet mean volume measurement 8.7 [foz_us] 7.4-10.4 Automated blood neutrophils/100 leukocytes 47 % [...] Urine pH measurement by test strip 5 5-9 Specific gravity of urine by test strip 1.020 1.016- 1.022 Urine protein assay by test strip, semi-quantitative [...] 19:50 Blood leukocytes automated count (number/volume) 10.4 10*3/uL 4.3-11.0 Blood erythrocytes automated count (number/volume) 4.73 10*6/uL 4.35-5.85 Venous blood hemoglobin measurement (mass/volume) 14.6 [...] Automated blood platelet mean volume measurement 8.9 [foz_us] 7.4-10.4 Automated blood neutrophils/100 leukocytes 55 % [...] Serum or plasma sodium measurement (moles/volume) 143 mmol/L 135-145 Serum or plasma potassium measurement (moles/volume) 3.4 mmol/L 3.6-5.0 Serum or plasma chloride measurement (moles/volume) 108 mmol/L 98-107 Carbon dioxide 24 mmol/L 21-32 Serum or plasma anion gap determination (moles/volume) 11 mmol/L 5-14 Serum or plasma urea nitrogen measurement (mass/volume) 6 mg/dL 7-18 Serum or plasma creatinine measurement (mass/volume) 0.78 mg/dL 0.60-1.30 Serum or plasma urea nitrogen/creatinine mass ratio 8 0- 20 Serum or plasma creatinine measurement with calculation [...] plasma C reactive protein measurement (mass/volume) 0.28 mg /dL 0.00-0.50 Complete blood count (CBC) with automated white blood cell (WBC) differential - 04/24/17 22:06 Blood leukocytes automated count (number/volume) 11.4 10*3/uL 4.3-11.0 Blood erythrocytes automated count (number/volume) 4.11 10*6/uL 4.35-5.85 Venous blood hemoglobin measurement (mass/volume) 13.0 g/dL 11.5-16.0 Blood hematocrit (volume fraction) 38 % 35-52 Automated erythrocyte mean corpuscular volume 92 [foz_us] 80-99 Automated erythrocyte mean corpuscular hemoglobin (mass per erythrocyte) 32 pg 25-34 Automated erythrocyte mean corpuscular hemoglobin concentration measurement ( mass/volume) 34 g/dL 32-36 Automated erythrocyte distribution width ratio 12.9 % 10.0-14.5 Automated blood platelet count (count/volume) 331 10*3/uL 130-400 Automated blood platelet mean volume measurement 8.6 [foz_us] 7.4-10.4 Automated blood neutrophils/100 leukocytes 61 % 42-75 Automated blood lymphocytes/100 leukocytes 26 % 12-44 Blood monocytes/100 leukocytes 7 % 0-12 Automated blood eosinophils/100 leukocytes 6 % 0-10 Automated blood basophils/100 leukocytes 0 % 0-10 Blood neutrophils automated count (number/volume) 6.9 10*3 1.8-7.8 Blood lymphocytes automated count (number/volume) 3.0 10*3 1.0-4.0 Blood monocytes automated count (number/volume) 0.8 10*3 0.0-1.0 Automated eosinophil count 0.6 10*3/uL 0.0-0.3 Automated blood basophil count (count/volume) 0.1 10*3/uL 0.0-0.1 Comprehensive metabolic panel - 04/24/17 22:06 Serum or plasma sodium measurement (moles/volume) 143 mmol/L 135-145 Serum or plasma potassium measurement (moles/volume) 3.3 mmol/L 3.6-5.0 Serum or plasma chloride measurement (moles/volume) 109 mmol/L 98-107 Carbon dioxide 21 mmol/L 21-32 Serum or plasma anion gap determination (moles/volume) 13 mmol/L 5-14 Serum or plasma urea nitrogen measurement (mass/volume) 6 mg/dL 7-18 Serum or plasma creatinine measurement (mass/volume) 0.79 mg/dL 0.60-1.30 Serum or plasma urea nitrogen/creatinine mass ratio 8 NRG Serum or plasma creatinine measurement with calculation of estimated glomerular filtration rate > NRG Serum or plasma glucose measurement (mass/volume) 96 mg/dL 70-105 Serum or plasma calcium measurement (mass/volume) 9.1 mg/dL 8.5-10.1 Serum or plasma total bilirubin measurement (mass/volume) 0.4 mg/dL 0.1-1.0 Serum or plasma alkaline phosphatase measurement (enzymatic activity/volume) 81 U/L 40-136 Serum or plasma aspartate aminotransferase measurement (enzymatic activity/ volume) 18 U/L 5-34 Serum or plasma alanine aminotransferase measurement (enzymatic activity/volume ) 20 U/L 0-55 Serum or plasma protein measurement (mass/volume) 6.4 g/dL 6.4-8.2 Serum or plasma albumin measurement (mass/volume) 3.9 g/dL 3.2-4.5 Serum or plasma C reactive protein measurement (mass/volume) - 04/24/17 22:06 Serum or plasma C reactive protein measurement (mass/volume) 0.44 mg /dL 0.00-0.50 Complete urinalysis with reflex to culture - 04/24/17 22:33 Urine color determination YELLOW NRG Urine clarity determination CLEAR NRG Urine pH measurement by test strip 6.5 5-9 Specific gravity of urine by test strip 1.010 1.016- 1.022 Urine protein assay by test strip, semi-quantitative [...] urinalysis with reflex to culture YES NRG Bacterial urine culture - 04/24/17 22:33 Bacterial urine culture [id number] NRG COLONY COUNT >100,000/ML NRG FREE TEXT ENTRY 2 MIXED GRAM POSITIVE ANA <10,000/ML NRG Complete urinalysis with reflex to culture - 04/27/17 19:45 Urine color determination YELLOW NRG Urine clarity determination CLEAR NRG Urine pH measurement by test strip 6 5-9 Specific gravity of urine by test strip 1.020 1.016- 1.022 Urine protein assay by test strip, semi-quantitative [...] urine sediment by light microscopy NONE NRG Urine drug screening test - 04/27/17 19:45 Urine phencyclidine detection by screening method NEGATIVE [...] NEGATIVE NEGATIVE Urine propoxyphene detection NEGATIVE NEGATIVE Complete blood count (CBC) with automated white blood cell (WBC) differential - 04/27/17 20:05 Blood leukocytes automated count (number/volume) 11.5 10*3/uL 4.3-11.0 Blood erythrocytes automated count (number/volume) 3.72 10*6/uL 4.35-5.85 Venous blood hemoglobin measurement (mass/volume) 11.6 g/dL 11.5-16.0 Blood hematocrit (volume fraction) 35 % 35-52 Automated erythrocyte mean corpuscular volume 94 [foz_us] 80-99 Automated erythrocyte mean corpuscular hemoglobin (mass per erythrocyte) 31 pg 25-34 Automated erythrocyte mean corpuscular hemoglobin concentration measurement ( mass/volume) 33 g/dL 32-36 Automated erythrocyte distribution width ratio 12.9 % 10.0-14.5 Automated blood platelet count (count/volume) 323 10*3/uL 130-400 Automated blood platelet mean volume measurement 8.9 [foz_us] 7.4-10.4 Automated blood neutrophils/100 leukocytes 66 % 42-75 Automated blood lymphocytes/100 leukocytes 23 % 12-44 Blood monocytes/100 leukocytes 6 % 0-12 Automated blood eosinophils/100 leukocytes 5 % 0-10 Automated blood basophils/100 leukocytes 0 % 0-10 Blood neutrophils automated count (number/volume) 7.5 10*3 1.8-7.8 Blood lymphocytes automated count (number/volume) 2.7 10*3 1.0-4.0 Blood monocytes automated count (number/volume) 0.7 10*3 0.0-1.0 Automated eosinophil count 0.5 10*3/uL 0.0-0.3 Automated blood basophil count (count/volume) 0.0 10*3/uL 0.0-0.1 Comprehensive metabolic panel - 04/27/17 20:05 Serum or plasma sodium measurement (moles/volume) 141 mmol/L 135-145 Serum or plasma potassium measurement (moles/volume) 4.9 mmol/L 3.6-5.0 Serum or plasma chloride measurement (moles/volume) 110 mmol/L 98-107 Carbon dioxide 20 mmol/L 21-32 Serum or plasma anion gap determination (moles/volume) 11 mmol/L 5-14 Serum or plasma urea nitrogen measurement (mass/volume) 5 mg/dL 7-18 Serum or plasma creatinine measurement (mass/volume) 0.79 mg/dL 0.60-1.30 Serum or plasma urea nitrogen/creatinine mass ratio 6 NRG Serum or plasma creatinine measurement with calculation of estimated glomerular filtration rate > NRG Serum or plasma glucose measurement (mass/volume) 102 mg/dL 70-105 Serum or plasma calcium measurement (mass/volume) 8.9 mg/dL 8.5-10.1 Serum or plasma total bilirubin measurement (mass/volume) 0.5 mg/dL 0.1-1.0 Serum or plasma alkaline phosphatase measurement (enzymatic activity/volume) 79 U/L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 ALMA ORTEZ MD [facility] ER R HIP PAIN [id number] 07/05/2018 20:52:00 ACT Emergency JOSE ASH DO [facility] ER ABD PAIN, POST SURG [id number] 10/22/2014 13:44:00 Document Registration [id number] 10/22/2014 13:44:00 Document Registration [id number] 10/22/2014 13:43:00 Document Registration [id number] 10/22/2014 13:43:00 Document Registration [id number] 10/22/2014 13:43:00 Document Registration [id number] 10/22/2014 13:43:00 Document Registration [id number] 10/22/2014 13:43:00 Document Registration [id number] 10/22/2014 13:42:00 Document Registration [id number] 10/22/2014 13:42:00 Document Registration [id number] 10/22/2014 13:42:00 Document Registration [id number] 10/22/2014 13:42:00 Document Registration [id number] 10/22/2014 13:42:00 Document Registration [id number] 10/22/2014 13:42:00 Document Registration [id number] 10/22/2012 20:44:00 Document Registration [id number] 10/04/2012 00:00:00 Document Registration [id number] 09/07/2012 11:42:00 Document Registration [id number] 09/05/2012 11:01:00 Document Registration [id number] 08/26/2012 21:14:00 Document Registration [id number] 07/27/2012 09:52:00 Document Registration [id number] 07/05/2012 07:42:00 Document Registration [id number] 06/17/2012 20:24:00 Document Registration [id number] 05/24/2012 21:09:00 Document Registration [id number] 03/12/2012 18:59:00 Document Registration [id number] 03/07/2012 14:30:00 Document Registration [id number] 02/11/2012 16:25:00 Document Registration [id number] 12/25/2011 14:54:00 Document Registration [id number] 12/14/2011 12:38:00 Document Registration [id number] 09/12/2011 17:52:00 Document Registration [id number] 08/07/2011 06:59:00 Document Registration [id number] 07/30/2011 09:27:00 Document Registration [id number] 07/23/2011 10:28:00 Document Registration [id number] 06/20/2011 00:48:00 Document Registration [id number] 06/06/2011 14:35:00 Document Registration [id number] 03/26/2011 10:14:00 Document Registration [id number] 03/13/2011 01:38:00 Document Registration [id number] 03/12/2011 16:40:00 Document Registration [id number] 03/11/2011 19:09:00 Document Registration [id number] 12/24/2010 07:38:00 Document Registration [id number] 12/15/2010 21:24:00 Document Registration [id number] 10/31/2010 15:37:00 Document Registration [id number] 10/29/2010 16:59:00 Document Registration [id number] 08/18/2010 09:10:00 Document Registration [id number] 07/24/2010 16:02:00 Document Registration [id number] 07/22/2010 11:13:00 Document Registration [id number] 07/04/2010 05:41:00 Document Registration [id number] 06/19/2010 16:30:00 Document Registration [id number] 06/16/2010 12:00:00 Document Registration [id number] 04/19/2010 20:17:00 Document Registration [id number] 04/17/2010 19:48:00 Document Registration [id number] 01/31/2010 08:59:00 Document Registration [id number] 08/29/2009 08:16:00 Document Registration [id number] 06/27/2009 14:32:00 Document Registration
[2018-07-05 21:49] LABS: BASOPHILS % (AUTO) 1 % (0-10); EOSINOPHILS # (AUTO) 1.3 10^3/uL (0.0-0.3); EOSINOPHILS % (AUTO) 15 % (0-10); HEMATOCRIT 36 % (35-52); LYMPHOCYTES # (AUTO) 3.9 X 10^3 (1.0-4.0); LYMPHOCYTES % (AUTO) 44 % (12-44); MEAN CORPUSCULAR HEMOGLOBIN 31 PG (25-34); MEAN CORPUSCULAR HGB CONC 34 G/DL (32-36); MEAN CORPUSCULAR VOLUME 92 FL (80-99); MEAN PLATELET VOLUME 8.1 FL (7.4-10.4); MONOCYTES # (AUTO) 0.5 X 10^3 (0.0-1.0); MONOCYTES % (AUTO) 6 % (0-12); NEUTROPHILS % (AUTO) 34 % (42-75); PLATELET COUNT 383 10^3/uL (130-400); RED BLOOD COUNT 3.84 10^6/uL (4.35-5.85); RED CELL DISTRIBUTION WIDTH 13.3 % (10.0-14.5); WHITE BLOOD COUNT 8.8 10^3/uL (4.3-11.0)
[2018-07-05 21:55] LABS: BILIRUBIN,URINE NEGATIVE (NEGATIVE); CLARITY,URINE CLEAR; COLOR,URINE YELLOW; GLUCOSE, URINE (UA) NEGATIVE (NEGATIVE); KETONES,URINE NEGATIVE (NEGATIVE); LEUKOCYTE ESTERASE ,URINE 3+ (NEGATIVE); NITRITE,URINE NEGATIVE (NEGATIVE); PH,URINE 5 (5-9); PROTEIN,URINE 1+ (NEGATIVE); UROBILINOGEN,URINE NORMAL (NORMAL)
[2018-07-05] MEDS ORDERED: fentaNYL INJECTION 100 MCG/2 ML AMP IVP ONE ×2 (22:00→23:30)
[2018-07-05] MEDS ORDERED: NS IV 1000 ML 1,000 ML IV SCH (22:00)
[2018-07-05] MEDS ORDERED: ONDANSETRON 4 MG/2 ML (SDV) Z0FRAN IVP ONE (22:00)
[2018-07-05 22:07] LABS: BACTERIA,URINE FEW /HPF; WBC,URINE 25-50 /HPF
[2018-07-05 22:09] LABS: ALANINE AMINOTRANSFERASE 22 U/L (0-55); ALKALINE PHOSPHATASE 70 U/L (40-136); AMYLASE 41 U/L (25-125); BILIRUBIN,TOTAL 0.4 MG/DL (0.1-1.0); BUN/CREATININE RATIO 10; CALCIUM 9.2 MG/DL (8.5-10.1); CARBON DIOXIDE 23 MMOL/L (21-32); CHLORIDE 107 MMOL/L (98-107); CREATININE SERUM 0.94 MG/DL (0.60-1.30); GFR ESTIMATED > 60; GLUCOSE 111 MG/DL (70-105); LIPASE 20 U/L (8-78); POTASSIUM 2.9 MMOL/L (3.6-5.0); SODIUM 140 MMOL/L (135-145); TOTAL PROTEIN 7.3 GM/DL (6.4-8.2)
[2018-07-05 22:11] LABS: BAND NEUTROPHILS 0 %; BASOPHILS % (MANUAL) 0 %; EOSINOPHILS % (MANUAL) 18 %; LYMPHOCYTES % (MANUAL) 40 %; MONOCYTES % (MANUAL) 5 %; NEUTROPHILS % (MANUAL) 37 %; RBC MORPH NORMAL
[2018-07-05] MEDS ORDERED: IOHEXOL 350 MG/ML 100 ML (OMNIPAQUE 350) VIAL IV ONE (22:30)
[2018-07-05] MEDS ORDERED: NS 250 ML (IVPB) BAG IV ONE (22:30)
--- NOTE | 2018-07-05 22:45 | ED Abdominal Pain ---
General Chief Complaint: Abdominal/GI Problems Stated Complaint: ABD PAIN, POST SURG Nursing Triage Note: PT AMB TO ROOM #3 W/O DIFFICULTY. A&OX4. CO NAUSEA AND LOWER RT QUADRANT ABD PAIN. PT REPORTS SHE HAD A LAPROSCOPIC HERNIA REPAIR ON 05/31/18 AND "HAS BEEN HAVING SEVERE PAIN SINCE." PT REPORTS PAIN "BURNING AND STABBING" THAT HAS GOTTEN SO SEVERE ON THIS DAY SHE "COULDNT STAND IT ANYMORE AND HAD TO COME TO ED." Sepsis Screen: No Definite Risk Source of Information: Patient Exam Limitations: No Limitations History of Present Illness Date Seen by Provider: Jul 05, 2018 Time Seen by Provider: 21:22 Initial Comments Patient is a 38-year-old female who presents to the emergency room with complaints of nausea, right lower quadrant abdominal pain that started this morning. She describes the pain as burning and stabbing. She denies vomiting. Reports that she had a laparoscopic hernia repair by Dr. Wen on 05/31/18 and has had some pain ever since this pain is worse than the normal pain postop. Timing/Duration: 1 Day Severity/Quality: Burning, Stabbing Location: LLQ Radiation: No Radiation Associated Symptoms: Nausea/Vomiting Allergies and Home Medications Allergies Coded Allergies: NSAIDS (Non-Steroidal Anti-Inflamma (Verified Allergy, Intermediate, ) Penicillins (Verified Allergy, Mild, HIVES, 02/22/09) penicillin V (Unverified Allergy, Mild, 02/24/09) Sulfa (Sulfonamide Antibiotics) (Verified Allergy, Unknown, 01/17/14) BREAK OUT IN A RED RASH WITH VOMITING ketorolac tromethamine (Unverified Allergy, Unknown, 01/17/14) naproxen (Unverified Allergy, Unknown, 01/17/14) Uncoded Allergies: PCN (Allergy, Mild, 05/01/09) ANTI-INFLAMMATORY (Allergy, Unknown, 01/17/14) Home Medications Albuterol Sulfate 6.7 Gm Hfa.aer.ad, 2 PUFF IH Q6H PRN for SHORTNESS OF BREATH Prescribed by: IGNACIO SHIELDS on 01/31/18 193 Loratadine 10 Mg Capsule, 10 MG PO DAILY, (Reported) Nitrofurantoin Macrocrystal 100 Mg Capsule, 100 MG PO BID Prescribed by: SANTHOSH SANTIAGO on 07/05/18 2321 Oseltamivir Phosphate 75 Mg Cap, 75 MG PO BID Prescribed by: IGNACIO SHIELDS on 01/31/181933 Oxycodone HCl/Acetaminophen 1 Each Tablet, 1 EACH PO Q4H PRN for PAIN-MODERATE TO SEVERE Prescribed by: ALMA SWEENEY on 05/17/18 0532 Prednisone 20 Mg Tab, 40 MG PO DAILY Prescribed by: IGNACIO SHIELDS on 01/31/181933 Patient Home Medication List Home Medication List Reviewed: Yes Review of Systems Review of Systems Constitutional: see HPI; No chills, No fever Gastrointestinal: Abdominal Pain, Nausea All Other Systems Reviewed Negative Unless Noted: Yes Past Sjyticy-Upfuug-Yclgjc Hx Past Med/Social Hx: Reviewed Nursing Past Med/Soc Hx Patient Social History Alcohol Use: Occasionally Uses Recreational Drug Use: No Smoking Status: Former Smoker Type Used: Cigarettes 2nd Hand Smoke Exposure: Yes Recent Foreign Travel: No Contact w/Someone Who Travel: No Recent Infectious Disease Expo: No Recent Hopitalizations: No Physical Abuse: No Sexual Abuse: No Immunizations Up To Date Tetanus Booster (TDap): Unknown PED Vaccines UTD: Yes Date of Pneumonia Vaccine: Nov 04, 2010 Date of Influenza Vaccine: Jul 12, 2011 Seasonal Allergies Seasonal Allergies: Yes Past Medical History Surgeries: Yes (BURN SURG, SMALL BOWEL RESECT, NASAL, RIGHT HIP) Abdominal, Appendectomy, Bowel Surgery, Section, Gallbladder, Hysterectomy, Nose, Orthopedic, 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 Respiratory: Yes Asthma Currently Using CPAP: No Currently Using BIPAP: No Cardiac: Yes Hypertension Neurological: No Reproductive Disorders: Yes (PCOS) 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, 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 Dis 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 Sexually Transmitted Disease: No HIV/AIDS: No Genitourinary: No Kidney Stones Gastrointestinal: Yes (chronic abdominal pain, nausea, vomiting, and diarrhea) Gastroesophageal Reflux, Crohns Disease, Pancreatitis, Ulcer Musculoskeletal: Yes Back Injury, Chronic Back Pain Endocrine: No HEENT: No Cancer: No Psychosocial: Yes Anxiety Integumentary: No Blood Disorders: No Adverse Reaction/Blood Tranf: No Family Medical History Reviewed Nursing Family Hx Family history: Diabetes mellitus 19 FATHER 19 MOTHER G8 SISTER No Pertinent Family Hx Physical Exam Vital Signs Vital Signs - First Documented 07/05/18 21:22 Temp 98.1 Pulse 79 Resp 18 B/P (MAP) 141/94 (110) Pulse Ox 98 O2 Delivery Room Air Capillary Refill : Less Than 3 Seconds Height/Weight/BMI Height: 5'3.00" Weight: 185lbs. 9.0oz. 83.713665uu; 31.3 BMI Method:Stated General Appearance: WD/WN, no apparent distress Respiratory: chest non-tender, lungs clear, normal breath sounds, no respiratory distress, no accessory muscle use Cardiovascular: normal peripheral pulses, regular rate, rhythm, no edema, no gallop, no JVD, no murmur Gastrointestinal: normal bowel sounds, soft, no organomegaly, no pulsatile mass , tenderness (left lower quadrant tenderness. ), other Neurologic/Psychiatric: alert, normal mood/affect, oriented x 3 Skin: normal color, warm/dry, tattoos/piercings Progress/Results/Core Measures Results/Orders Lab Results Laboratory Tests Test 07/05/18 20:52 07/05/18 21:36 07/05/18 21:47 Range/Units Lab Scanned Report Referred Lab Report [id number] White Blood Count 8.8 4.3-11.0 10^3/uL Red Blood Count 3.84 L 4.35-5.85 10^6/uL Hemoglobin 12.0 11.5-16.0 G/DL Hematocrit 36 35-52 % Mean Corpuscular Volume 92 80-99 FL Mean Corpuscular Hemoglobin 31 25-34 PG Mean Corpuscular Hemoglobin Concent 34 32-36 G/DL Red Cell Distribution Width 13.3 10.0-14.5 % Platelet Count 383 130-400 10^3/uL Mean Platelet Volume 8.1 7.4-10.4 FL Neutrophils (%) (Auto) 34 L 42-75 % Lymphocytes (%) (Auto) 44 12-44 % Monocytes (%) (Auto) 6 0-12 % Eosinophils (%) (Auto) 15 H 0-10 % Basophils (%) (Auto) 1 0-10 % Neutrophils # (Auto) 3.0 1.8-7.8 X 10^3 Lymphocytes # (Auto) 3.9 1.0-4.0 X 10^3 Monocytes # (Auto) 0.5 0.0-1.0 X 10^3 Eosinophils # (Auto) 1.3 H 0.0-0.3 10^3/uL Basophils # (Auto) 0.0 0.0-0.1 10^3/uL Neutrophils % (Manual) 37 % Lymphocytes % (Manual) 40 % Monocytes % (Manual) 5 % Eosinophils % (Manual) 18 % Basophils % (Manual) 0 % Band Neutrophils 0 % Blood Morphology Comment NORMAL Sodium Level 140 135-145 MMOL/L Potassium Level 2.9 L 3.6-5.0 MMOL/L Chloride Level 107 98-107 MMOL/L Carbon Dioxide Level 23 21-32 MMOL/L Anion Gap 10 5-14 MMOL/L Blood Urea Nitrogen 9 7-18 MG/DL Creatinine 0.94 0.60-1.30 MG/DL Estimat Glomerular Filtration Rate > 60 BUN/Creatinine Ratio 10 Glucose Level 111 H 70-105 MG/DL Calcium Level 9.2 8.5-10.1 MG/DL Corrected Calcium 9.2 8.5-10.1 MG/DL Total Bilirubin 0.4 0.1-1.0 MG/DL Aspartate Amino Transf (AST/SGOT) 22 5-34 U/L Alanine Aminotransferase (ALT/SGPT) 22 0-55 U/L Alkaline Phosphatase 70 40-136 U/L Total Protein 7.3 6.4-8.2 GM/DL Albumin 4.0 3.2-4.5 GM/DL Amylase Level 41 25-125 U/L Lipase 20 8-78 U/L Serum Test, Qualitative NEGATIVE NEGATIVE Urine Color YELLOW Urine Clarity CLEAR Urine pH 5 5-9 Urine Specific [place] 1.025 H 1.016-1.022 Urine Protein 1+ H NEGATIVE Urine Glucose (UA) NEGATIVE NEGATIVE Urine Ketones NEGATIVE NEGATIVE Urine Nitrite NEGATIVE NEGATIVE Urine Bilirubin NEGATIVE NEGATIVE Urine Urobilinogen NORMAL NORMAL MG/DL Urine Leukocyte Esterase 3+ H NEGATIVE Urine RBC (Auto) 3+ H NEGATIVE Urine RBC 5-10 H /HPF Urine WBC 25-50 H /HPF Urine Squamous Epithelial Cells 10-25 H /HPF Urine Crystals NONE /LPF Urine Bacteria FEW H /HPF Urine Casts NONE /LPF Urine Mucus LARGE H /LPF Urine Culture Indicated YES Micro Results Microbiology 07/05/18 Urine Culture - Final, Complete Group B Streptococci See Report My Orders Orders - SANTHOSH SANTIAGO Comprehensive Metabolic Panel (07/05/18 21:43) Lipase (07/05/18 21:43) Amylase (07/05/18 21:43) Ua Culture If Indicated (07/05/18 21:43) Hcg,Qualitative Serum (07/05/18 21:43) Saline Lock/Iv-Start (07/05/18 21:43) Cbc With Automated Diff (07/05/18 21:43) Ct Abdomen/Pelvis W (07/05/18 21:43) Fentanyl Injection (Sublimaze Injection (07/05/18 22:00) Ns Iv 1000 Ml (Sodium Chloride 0.9%) (07/05/18 22:00) Ondansetron Injection (Zofran Injectio (07/05/18 22:00) Manual Differential (07/05/18 21:36) Urine Culture (07/05/18 21:47) Iohexol Injection (Omnipaque 350 Mg/Ml 1 (07/05/18 22:30) Ns (Ivpb) (Sodium Chloride 0.9%) (07/05/18 22:30) Fentanyl Injection (Sublimaze Injection (07/05/18 23:30) Iv Push Lumber Press Operator Ed (07/05/18 ) Medications Given in ED Vital Signs/I&O 07/05/18 07/05/18 21:22 23:30 Temp 98.1 98.1 Pulse 79 78 Resp 18 17 B/P (MAP) 141/94 (110) 129/97 (110) Pulse Ox 98 100 O2 Delivery Room Air Room Air Blood Pressure Mean: 110 Progress Progress Note : Time: 23:08 Progress Note I have received the patient's imaging studies from [facility] at this time. They are noted small inflammatory appearing fluid collection in the peritoneal space just below the umbilicus measuring 2 cm x 2 cm x 1.6 cm. Questioning seroma versus abscess. Given the patient's location of pain and normal laboratory findings I do believe that this is more along the lines of a seroma. I have informed the patient of her CT findings and laboratory studies. She is aware that her potassium has been low and has appointment with Dr. Armas for management. I will be treating her urinary tract infection. She agrees with plan of care, close follow-up with Dr. Armas and Dr Wen. Return precautions were given. Diagnostic Imaging Diagonstic Imaging: CT Plain Films/CT/US/NM/MRI: abdomen Comments 1. The patient is postop ventral hernia repair. There is a small limiter- appearing fluid collection in the peritoneal space just below the umbilicus measuring 2 cm x 2 cm x 1.6 cm this could be a seroma by an abscess needs to be excluded. 2. The patient is status post cholecystectomy and right colon surgery is no bowel obstruction. 3. Marked fatty attenuation of the liver. 4. 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 Reviewed: Reviewed by Me Departure Impression Primary Impression: Nausea alone Additional Impressions: Abdominal pain Urinary tract infection Seroma Disposition: HOME, SELF-CARE Condition: Stable/Unchanged Departure-Patient Inst. Decision time for Depature: 23:17 Referrals: ROSANGELA ARMAS DO (PCP/Family) Primary Care Physician Patient Instructions: Acute Abdomen (Belly Pain), Adult (DC), Urinary Tract Infection, Adult (DC) Add. Discharge Instructions: Take medication as directed. Follow-up with Dr. Wen regarding her abdominal pain and CT findings within 1 week for recheck.. Follow-up with Dr. Armas within 1 week for recheck and close management of your hypokalemia. Return back to the emergency room for any worsening symptoms or concerns as needed. All discharge instructions reviewed with patient and/or family. Voiced understanding. Scripts Nitrofurantoin Macrocrystal (Nitrofurantoin) 100 Mg Capsule 100 MG PO BID for 5 Days, #10 CAP Prov: SANTHOSH SANTIAGO 07/05/18 SANTHOSH SANTIAGO Jul 05, 2018 22:45
[2018-07-05] MEDS ORDERED: NITR100C PO (23:21)
[2018-07-05 23:30] VITALS: BP 129/97
--- NOTE | 2018-07-06 06:04 | Diagnostic Imaging Report ---
PROCEDURE: CT abdomen and pelvis with contrast. TECHNIQUE: Multiple contiguous axial images were obtained through the abdomen and pelvis after administration of intravenous contrast. INDICATION: Pain postsurgical. Exam compared 05/17/2018 FINDINGS: Ventral abdominal wall hernia repair has been performed. There is some fat tracking along the umbilicus eccentric to the right. Deep to the umbilicus and just inferiorly posterior to the abdominal wall is a fluid collection measuring 2.3 x 1.3 cm. There is some adjacent inflammation of the peritoneal fat. Its sterility could not be confirmed. No herniated viscus. No other fluid collection. There is a minute amount of pelvic free fluid nonloculated. No ileus or bowel obstruction. Mild fatty liver chronic. Spleen, adrenals, and pancreas negative. The gallbladder is surgically absent. The kidneys are unobstructed. There is no free air or pneumatosis. The osseous structures and the lung bases appeared nonacute. IMPRESSION: Intra-abdominal wall hernia repair with small fluid collection just deep to the umbilicus. Small abscess could not be excluded in the appropriate clinical scenario. Trace free fluid in the pelvis. No other loculated collection. Dictated by: Dictated on workstation # [id number]
== END 2018-07-05 23:34 | disposition home or self-care (01) ==
LOC: EDUNIT# 20:50 → ER 20:52
DX: K91.872 Postprocedural seroma of a digestive system organ or structure following a digestive system procedure (principal); N39.0 Urinary tract infection, site not specified; J45.909 Unspecified asthma, uncomplicated; I10 Essential (primary) hypertension; K21.9 Gastro-esophageal reflux disease without esophagitis; F41.9 Anxiety disorder, unspecified; Z87.442 Personal history of urinary calculi; Z87.19 Personal history of other diseases of the digestive system; Z87.448 Personal history of other diseases of urinary system; Z98.890 Other specified postprocedural states; Z88.6 Allergy status to analgesic agent; Z88.0 Allergy status to penicillin; Z88.2 Allergy status to sulfonamides; Z88.4 Allergy status to anesthetic agent; Z88.8 Allergy status to other drugs, medicaments and biological substances; Z79.51 Long term (current) use of inhaled steroids; Z79.52 Long term (current) use of systemic steroids; Z87.891 Personal history of nicotine dependence; Z90.89 Acquired absence of other organs; Z98.51 Tubal ligation status; Z90.710 Acquired absence of both cervix and uterus
CPT/HCPCS: 36415; 74177; 80053; 81000; 82150; 83690; 84703; 85007; 85027; 87077; 87088; 96361; 96374; 96375; 96376

== ENCOUNTER 2018-08-19 10:03 | Emergency (ER) | payer MEDICAID ==
[~2018-08-19] VITALS: Ht 160 cm; Wt 86.6 kg
[~2018-08-19 10:03] MED LIST changes: +NITR100C PO
--- OUTSIDE RECORDS SUMMARY | 2018-08-19 10:08 | XMS REPORT | Encounter Summary ---
Author Author [facility] Organization [facility] Address Unknown Phone Unavailable Care Team Providers Care Beam Machine Operator Name Role Phone Barber Nguyen MD Unavailable Naveed Lockhart DO PCP Mychart, Generic Provider Unavailable Unavailable Mary Gomez Unavailable Unavailable Loreta Mcfadden Unavailable Reason for Visit * Reason Comments Medication Refill Encounter Details Date Type Department Care Team Description 07/26/2018 Refill [facility] Moncho Odonnell MD Physicians [address] Orth[facility] [place] [address] [place] [address] [address] [facility] [phone] [place] [address] Social History Tobacco Use Types [...]
--- OUTSIDE RECORDS SUMMARY | 2018-08-19 10:08 | XMS REPORT | Clinical Summary ---
Author Author [facility] Organization [facility] Address Unknown Phone Unavailable Care Team Providers Care Senior Gl Accountant Name Role Phone PCP Unavailable Allergies Active Allergy Reactions Severity Noted Date Comments Nsaids (Non-Steroidal 09/10/2017 Anti-Inflammatory Drug) Penicillins 09/10/2017 Ketorolac 09/10/2017 Current Medications Prescription Sig. Disp. Refills Start End Date Status Date HYDROcodone-acetaminophen Take 1 tablet by mouth 11 tablet 0 09/10/20 Active (NORCO) 5-325 mg per every 6 (six) hours as 17 tabletIndications: Pain needed for pain. Active Problems Not on file Social History Tobacco Use Types Packs/Day Years Used Date Former Smoker Smokeless Tobacco: Never Used Alcohol Use Drinks/Week oz/Week Comments No Sex Assigned at Date Recorded Not on file Last Filed Vital Signs Vital Sign Reading Time Taken Blood Pressure 122/91 09/10/2017 6:33 PM DRY KILN OPERATOR Pulse 91 09/10/2017 6:33 PM DRY KILN OPERATOR Temperature 37 C (98.6 F) 09/10/2017 6:33 PM DRY KILN OPERATOR Respiratory Rate 16 09/10/2017 6:33 PM DRY KILN OPERATOR Oxygen Saturation 98% 09/10/2017 6:33 PM DRY KILN OPERATOR Inhaled Oxygen - - Concentration Weight 74.8 kg (165 lb) 09/10/2017 6:33 PM DRY KILN OPERATOR Height 160 cm (5' 3") 09/10/2017 6:33 PM DRY KILN OPERATOR Body Mass Index 29.23 09/10/2017 6:33 PM DRY KILN OPERATOR Plan of Treatment Health Maintenance Due Date Last Done Comments Td # 1978 Cervical Cancer Screening 1999 via Pap Smear Influenza Vaccine (#1) 2018 Results Not on filefrom Last 3 Months
--- OUTSIDE RECORDS SUMMARY | 2018-08-19 10:08 | XMS REPORT | Clinical Summary ---
Author Author [facility] Organization [facility] Address Unknown Phone Unavailable Care Team Providers Care It Solutions Architect Name Role Phone Barber Nguyen MD Unavailable Naveed Lockhart DO PCP Mychart, Generic Provider Unavailable Unavailable Mary Gomez Unavailable Unavailable Loreta Mcfadden Unavailable Source Comments Some departments are not documenting in the electronic medical record. If you do not see the information that you expected, contact Release of Information in the Health Information Management department at [phone] for further assistance in locating additional records.[facility] Allergies Active Allergy Reactions Severity Noted Date [...] Encounters Date Type Specialty Care Team Description 07/26/2018 Refill Gastroenterology Moncho Odonnell MD from Last [...] 2008 BREAST CANCER SCREENING 2018 INFLUENZA VACCINE 05/25/2018 09/06/2006 Results Not on filefrom Last 3 Months
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
--- NOTE | 2018-08-19 11:27 | Diagnostic Imaging Report ---
INDICATION: Pain at the left ankle. Injury 2 days ago. TECHNIQUE: 3 views of the left ankle. COMPARISON: 03/31/2011 FINDINGS: No acute fracture or dislocation is seen in the left ankle. Alignment appears normal. There are mild degenerative changes at the tibiotalar joint anteriorly. There is a moderate-sized plantar calcaneal enthesophyte. 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 No left ankle joint effusion is seen. IMPRESSION: No acute osseous abnormality is seen in the left ankle. Chronic findings as described above. Dictated by: Dictated on workstation # [id number]
[2018-08-19 12:14] VITALS: BP 143/111
== END 2018-08-19 12:14 | disposition home or self-care (01) ==
LOC: EDUNIT# 10:03 → ER 10:04
DX: S93.402A Sprain of unspecified ligament of left ankle, initial encounter (principal); J45.909 Unspecified asthma, uncomplicated; I10 Essential (primary) hypertension; F41.9 Anxiety disorder, unspecified; K21.9 Gastro-esophageal reflux disease without esophagitis; F17.210 Nicotine dependence, cigarettes, uncomplicated; Z87.19 Personal history of other diseases of the digestive system; Z87.442 Personal history of urinary calculi; Z98.890 Other specified postprocedural states; Z87.448 Personal history of other diseases of urinary system; Z98.51 Tubal ligation status; Z90.710 Acquired absence of both cervix and uterus; Z88.6 Allergy status to analgesic agent; Z88.0 Allergy status to penicillin; Z88.2 Allergy status to sulfonamides; Z88.8 Allergy status to other drugs, medicaments and biological substances; Z88.4 Allergy status to anesthetic agent; Z79.51 Long term (current) use of inhaled steroids; Z79.52 Long term (current) use of systemic steroids
CPT/HCPCS: 73610

== ENCOUNTER 2018-09-20 19:55 | Emergency (ER) | payer MEDICAID ==
[~2018-09-20] VITALS: Ht 160 cm; Wt 88.5 kg
[~2018-09-20 19:55] MED LIST changes: +METR-197 PO; -METR500T21 PO
--- OUTSIDE RECORDS SUMMARY | 2018-09-20 20:02 | XMS REPORT | Encounter Summary ---
Author Author [facility] Address Unknown Phone Unavailable Care Team Providers Care Food And Beverage Assistant Name Role Phone Barber Nguyen MD Unavailable Naveed Lockhart DO PCP Mychart, Generic Provider Unavailable Unavailable Mary Gomez Unavailable Unavailable Loreta Mcfadden Unavailable Reason for Visit * Reason Comments Medication Refill Encounter Details Date Type Department Care Team Description 07/26/2018 Refill [facility] Moncho Odonnell MD Physicians [address] [facility] [place] [address] [place] [address] [address] [facility] [phone] [place] [address] Social History Tobacco Use Types [...]
--- OUTSIDE RECORDS SUMMARY | 2018-09-20 20:02 | XMS REPORT | Clinical Summary ---
Author Author [facility] Organization [facility] Address Unknown Phone Unavailable Care Team Providers Care Sql Analyst Name Role Phone PCP Unavailable Allergies Active [...] Taken Blood Pressure 122/91 09/10/2017 6:33 PM CLAIM PROCESSOR Pulse 91 09/10/2017 6:33 PM CLAIM PROCESSOR Temperature 37 C (98.6 F) 09/10/2017 6:33 PM CLAIM PROCESSOR Respiratory Rate 16 09/10/2017 6:33 PM CLAIM PROCESSOR Oxygen Saturation 98% 09/10/2017 6:33 PM CLAIM PROCESSOR Inhaled Oxygen - - Concentration Weight 74.8 kg (165 lb) 09/10/2017 6:33 PM CLAIM PROCESSOR Height 160 cm (5' 3") 09/10/2017 6:33 PM CLAIM PROCESSOR Body Mass Index 29.23 09/10/2017 6:33 PM CLAIM PROCESSOR Plan of Treatment Health Maintenance Due Date Last Done Comments Td # 1980 Cervical Cancer Screening 1999 via Pap Smear Influenza Vaccine (#1) 2018 Results Not on filefrom Last 3 Months
--- OUTSIDE RECORDS SUMMARY | 2018-09-20 20:02 | XMS REPORT | Clinical Summary ---
Author Author [facility] Organization [facility] Address Unknown Phone Unavailable Care Team Providers Care Senior Wealth Advisor Name Role Phone Barber Nguyen MD Unavailable Naveed Lockhart DO PCP Mychart, Generic Provider Unavailable Unavailable Mary Gomez Unavailable Unavailable Loreta Mcfadden Unavailable Source Comments Some departments are not documenting in the electronic medical record. If you do not see the information that you expected, contact Release of Information in the Health Information Management department at [phone] for further assistance in locating additional records.[facility] Allergies Active Allergy Reactions Severity Noted [...] Last Done Comments PHYSICAL (COMPREHENSIVE) 1985 EXAM HIV SCREENING 1993 DTAP/TDAP VACCINES (1 - 1996 Tdap) CERVICAL CANCER SCREENING 2008 BREAST CANCER SCREENING 2018 INFLUENZA VACCINE 05/25/2018 09/06/2006 Results Not on filefrom Last 3 Months
[2018-09-20] MEDS ORDERED: CYCLOBENZAPRINE 10 MG (FLEXERIL) TAB PO STA (20:47)
[2018-09-20] MEDS ORDERED: morphine INJ 10 MG/ML 1ML (SYR OR VIAL) IVP STA (20:56)
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
[2018-09-20 21:22] LABS: BASOPHILS % (AUTO) 0 % (0-10); EOSINOPHILS # (AUTO) 0.3 10^3/uL (0.0-0.3); EOSINOPHILS % (AUTO) 3 % (0-10); HEMATOCRIT 36 % (35-52); HEMOGLOBIN 11.8 G/DL (11.5-16.0); LYMPHOCYTES # (AUTO) 2.9 X 10^3 (1.0-4.0); LYMPHOCYTES % (AUTO) 33 % (12-44); MEAN CORPUSCULAR HEMOGLOBIN 31 PG (25-34); MEAN CORPUSCULAR HGB CONC 33 G/DL (32-36); MEAN CORPUSCULAR VOLUME 93 FL (80-99); MEAN PLATELET VOLUME 8.1 FL (7.4-10.4); MONOCYTES # (AUTO) 0.8 X 10^3 (0.0-1.0); MONOCYTES % (AUTO) 9 % (0-12); NEUTROPHILS # (AUTO) 4.9 X 10^3 (1.8-7.8); NEUTROPHILS % (AUTO) 55 % (42-75); PLATELET COUNT 392 10^3/uL (130-400); RED BLOOD COUNT 3.86 10^6/uL (4.35-5.85); RED CELL DISTRIBUTION WIDTH 12.7 % (10.0-14.5); WHITE BLOOD COUNT 8.9 10^3/uL (4.3-11.0)
--- NOTE | 2018-09-20 21:35 | Diagnostic Imaging Report ---
INDICATION: Chest pain COMPARISON: 07/25/2018 FINDINGS: Single frontal view of the chest demonstrates normal heart size and pulmonary vascularity. The lungs are well aerated and clear. No large pleural effusion or pneumothorax is seen. The visualized osseous structures show no acute abnormalities. IMPRESSION: 1. No acute cardiopulmonary process. Dictated by: Dictated on workstation # [id number]
[2018-09-20 21:43] LABS: ALANINE AMINOTRANSFERASE 28 U/L (0-55); ALKALINE PHOSPHATASE 81 U/L (40-136); BILIRUBIN,TOTAL 0.6 MG/DL (0.1-1.0); BUN/CREATININE RATIO 11; CALCIUM 9.7 MG/DL (8.5-10.1); CARBON DIOXIDE 26 MMOL/L (21-32); CHLORIDE 103 MMOL/L (98-107); CREATINE KINASE 88 U/L (29-168); CREATININE SERUM 0.81 MG/DL (0.60-1.30); GFR ESTIMATED > 60; GLUCOSE 100 MG/DL (70-105); MAGNESIUM 1.6 MG/DL (1.8-2.4); POTASSIUM 3.3 MMOL/L (3.6-5.0); SODIUM 140 MMOL/L (135-145); TOTAL PROTEIN 7.6 GM/DL (6.4-8.2)
[2018-09-20 21:48] LABS: PROTHROMBIN TIME PATIENT 12.6 SEC (12.2-14.7)
[2018-09-20 21:51] LABS: CREATINE KINASE MB 1.1 NG/ML (<6.6); MYOGLOBIN SERUM 29.3 NG/ML (10.0-92.0)
[2018-09-20] MEDS ORDERED: RX-CYCLOBENZAPRINE 10 MG (FLEXERIL) TAB PPK#3 PO STA (22:08)
[2018-09-20] MEDS ORDERED: CYCL10TA9 PO (22:15)
[2018-09-20 22:23] VITALS: BP 120/79
== END 2018-09-20 22:23 | disposition home or self-care (01) ==
LOC: EDUNIT# 19:55 → ER 19:57
DX: R07.89 Other chest pain (principal); M25.512 Pain in left shoulder; J45.909 Unspecified asthma, uncomplicated; I10 Essential (primary) hypertension; K21.9 Gastro-esophageal reflux disease without esophagitis; F41.9 Anxiety disorder, unspecified; Z87.442 Personal history of urinary calculi; Z87.448 Personal history of other diseases of urinary system; Z88.6 Allergy status to analgesic agent; Z88.0 Allergy status to penicillin; Z88.2 Allergy status to sulfonamides; Z88.4 Allergy status to anesthetic agent; Z87.19 Personal history of other diseases of the digestive system; Z79.51 Long term (current) use of inhaled steroids; Z79.52 Long term (current) use of systemic steroids; Z87.891 Personal history of nicotine dependence; Z90.49 Acquired absence of other specified parts of digestive tract; Z90.710 Acquired absence of both cervix and uterus; Z98.890 Other specified postprocedural states; Z98.51 Tubal ligation status; Z88.8 Allergy status to other drugs, medicaments and biological substances; X50.0XXA Overexertion from strenuous movement or load, initial encounter; Y92.59 Other trade areas as the place of occurrence of the external cause; Y99.0 Civilian activity done for income or pay
CPT/HCPCS: 36415; 71045; 80053; 82550; 82553; 83735; 83874; 84484; 85025; 85379; 85610; 85730; 93005; 93041

== ENCOUNTER 2018-11-15 04:40 | Emergency (ER) | payer MEDICAID ==
[~2018-11-15] VITALS: Ht 160 cm; Wt 85.3 kg
[~2018-11-15 04:40] MED LIST changes: -ALEN70TA47; +ALEN70TA5; +METR-145 PO; -METR-197 PO
--- OUTSIDE RECORDS SUMMARY | 2018-11-15 04:46 | XMS REPORT | Clinical Summary ---
Author Author [facility] Organization [facility] Address Unknown Phone Unavailable Care Team Providers Care Compensator Worker Name Role Phone PCP Unavailable Allergies Active [...] Taken Blood Pressure 122/91 09/10/2017 6:33 PM BOOT AND SHOE LABORER Pulse 91 09/10/2017 6:33 PM BOOT AND SHOE LABORER Temperature 37 C (98.6 F) 09/10/2017 6:33 PM BOOT AND SHOE LABORER Respiratory Rate 16 09/10/2017 6:33 PM BOOT AND SHOE LABORER Oxygen Saturation 98% 09/10/2017 6:33 PM BOOT AND SHOE LABORER Inhaled Oxygen - - Concentration Weight 74.8 kg (165 lb) 09/10/2017 6:33 PM BOOT AND SHOE LABORER Height 160 cm (5' 3") 09/10/2017 6:33 PM BOOT AND SHOE LABORER Body Mass Index 29.23 09/10/2017 6:33 PM BOOT AND SHOE LABORER Plan of Treatment Health Maintenance Due Date Last Done Comments Td # 1980 Cervical Cancer Screening 1999 via Pap Smear Influenza Vaccine (#1) 2018 Results Not on filefrom Last 3 Months
--- OUTSIDE RECORDS SUMMARY | 2018-11-15 04:46 | XMS REPORT | Clinical Summary ---
Author Author [facility] Organization [facility] Address Unknown Phone Unavailable Care Team Providers Care Staff Antisubmarine Officer Name Role Phone Barber Nguyen MD Unavailable Naveed Lockhart DO PCP Mychart, Generic Provider Unavailable Unavailable Mary Gomez Unavailable Unavailable Loreta Mcfadden Unavailable Source Comments Some departments are not documenting in the electronic medical record. If you do not see the information that you expected, contact Release of Information in the Health Information Management department at [phone] for further assistance in locating additional records.[facility] Allergies Comments Active Allergy Reactions Severity Noted Date Stomach bleeding Nsaids (Non-Steroidal SEE COMMENTS 06/22/2012 Anti-Inflammatory Drug) Penicillins 12/19/2008 Medications End Date Status Medication Sig Dispensed Refills Start Date Active HYDROcodone/acetaminophen Take 1 Tab by 0 (NORCO; VICODIN) 5-325 mg mouth every 6 tablet hours as needed. Active LORATADINE (CLARITIN PO) Take by 0 mouth. Active Sodium,Potassium,&Mag Take 2 354 mL 0 Sulfates 17.5-3.13-1.6 Bottles by 6 gram solrIndications: mouth as Crohn's disease with directed. For complication, unspecified split dose gastrointestinal tract colonoscopy location (HCC), prep. Gastroesophageal reflux disease, esophagitis presence not specified Active mesalamine (LIALDA) 1.2 Take 4 Tabs 120 Tab 0 gram tablet by mouth 6 daily with breakfast. Active PENTASA 500 mg cpER TAKE 2 240 Cap 0 CAPSULES BY 7 MOUTH TWICE DAILY Active Mesalamine (PENTASA) 500 Take 2 Caps 240 Cap 3 mg cpER by mouth four 7 times daily. Active Mesalamine (PENTASA) 500 Take 2 240 capsule 4 mg cpER capsules by 7 mouth twice daily. Active omeprazole DR(+) TAKE 1 90 capsule 0 (PRILOSEC) 40 mg capsule CAPSULE BY 8 MOUTH DAILY BEFORE BREAKFAST Active Problems Problem Noted Date Inadequate material resources 12/25/2014 Noncompliance 05/29/2014 Crohn's disease 08/02/2012 Social History Date Tobacco Use Types Packs/Day Years Used Former Smoker Cigarettes 0.5 11 Smokeless Tobacco: Former Quit: 06/29/2017 User Tobacco Cessation: Ready to Quit: No; Counseling Given: Yes Alcohol Use Drinks/Week oz/Week Comments No 0 Standard 0.0 drinks or equivalent Sex Assigned at Date Recorded Not on file Industry Job Start Date Occupation Not on file Not on file Not on file Travel End Travel History Travel Start No recent travel history available. Last Filed Vital Signs Time Taken Vital Sign Reading 07/20/2017 1:31 PM CDT Blood Pressure 101/81 07/20/2017 1:31 PM CDT Pulse 75 07/20/2017 1:31 PM CDT Temperature 37.1 C (98.7 F) 07/20/2017 1:31 PM CDT Respiratory Rate 18 05/21/2016 8:39 AM CDT Oxygen Saturation 99% - Inhaled Oxygen - Concentration 07/20/2017 1:31 PM CDT Weight 77.1 kg (170 lb) 07/20/2017 1:31 PM CDT Height 160 cm (5' 2.99") 07/20/2017 1:31 PM CDT Body Mass Index 30.12 Plan of Treatment Health Maintenance Due Date Last Done Comments PHYSICAL (COMPREHENSIVE) 1985 EXAM HIV SCREENING 1993 DTAP/TDAP VACCINES (1 - 1996 Tdap) CERVICAL CANCER SCREENING 2008 BREAST CANCER SCREENING 2018 INFLUENZA VACCINE 05/25/2018 09/06/2006 Results Not on filefrom Last 3 Months Insurance Payer Benefit Subscriber ID Type Phone Address Plan / Group UHC MEDICAID [place] UHC xxxxxxxxxxx Medicaid [place] ([place]) [place] [address] Advance Directives Patient has advance care planning documents on file. For more information, please contact: [facility] [address] [place] [address]
[2018-11-15] MEDS ORDERED: AZITHROMYCIN 250 MG TAB (ZITHROMAX) PO ONE ×2 (05:08→09:00)
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
[2018-11-15] MEDS ORDERED: AZIT250T12 PO (05:11)
[2018-11-15 05:15] VITALS: BP 135/89
== END 2018-11-15 05:17 | disposition home or self-care (01) ==
LOC: EDUNIT# 04:40 → ER 04:41
DX: H66.91 Otitis media, unspecified, right ear (principal); J02.9 Acute pharyngitis, unspecified; J45.909 Unspecified asthma, uncomplicated; I10 Essential (primary) hypertension; F41.9 Anxiety disorder, unspecified; K21.9 Gastro-esophageal reflux disease without esophagitis; F17.210 Nicotine dependence, cigarettes, uncomplicated; Z88.6 Allergy status to analgesic agent; Z87.448 Personal history of other diseases of urinary system; Z87.19 Personal history of other diseases of the digestive system; Z87.442 Personal history of urinary calculi; Z90.710 Acquired absence of both cervix and uterus; Z98.51 Tubal ligation status; Z88.0 Allergy status to penicillin; Z98.890 Other specified postprocedural states; Z90.49 Acquired absence of other specified parts of digestive tract; Z88.2 Allergy status to sulfonamides; Z88.4 Allergy status to anesthetic agent; Z88.8 Allergy status to other drugs, medicaments and biological substances; Z79.51 Long term (current) use of inhaled steroids
CPT/HCPCS: 99283

== ENCOUNTER 2018-12-04 22:09 | Emergency (ER) | payer MEDICAID ==
[~2018-12-04] VITALS: Ht 160 cm; Wt 85.3 kg
[~2018-12-04 22:09] MED LIST changes: +AZIT250T12 PO
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
[2018-12-04 22:27] LABS: BILIRUBIN,URINE NEGATIVE (NEGATIVE); CLARITY,URINE SLIGHTLY CLOUDY; COLOR,URINE YELLOW; GLUCOSE, URINE (UA) NEGATIVE (NEGATIVE); KETONES,URINE NEGATIVE (NEGATIVE); LEUKOCYTE ESTERASE ,URINE 3+ (NEGATIVE); NITRITE,URINE NEGATIVE (NEGATIVE); PH,URINE 5 (5-9); PROTEIN,URINE 1+ (NEGATIVE); UROBILINOGEN,URINE NORMAL (NORMAL)
[2018-12-04 22:36] LABS: BACTERIA,URINE TRACE /HPF; CALCIUM OXALATE CRYSTALS,UR FEW /LPF
[2018-12-04] MEDS ORDERED: CEFU250T80 PO (22:39)
[2018-12-04] MEDS ORDERED: PHEN-639 PO (22:40)
--- OUTSIDE RECORDS SUMMARY | 2018-12-04 22:48 | XMS REPORT | Clinical Summary ---
Author Author [facility] Organization [facility] Address Unknown Phone Unavailable Care Team Providers Care Blade Aligner Name Role Phone Barber Nguyen MD Unavailable Naveed Lockhart DO PCP Mychart, Generic Provider Unavailable Unavailable Mary Gomez Unavailable Unavailable Loreta Mcfadden Unavailable Source Comments Some departments are not documenting in the electronic medical record. If you do not see the information that you expected, contact Release of Information in the Health Information Management department at [phone] for further assistance in locating additional records.[facility] Allergies Comments Active Allergy Reactions [...] MEDICAID [place] UHC xxxxxxxxxxx Medicaid COMMUNITY PLAN [place] ([place]) [place] [address] Advance Directives Patient has advance care planning documents on file. For more information, please contact: [facility] [address] [place] [address]
--- OUTSIDE RECORDS SUMMARY | 2018-12-04 22:48 | XMS REPORT | Clinical Summary ---
Author Author [facility] Organization [facility] Address Unknown Phone Unavailable Care Team Providers Care Aeronautical Research Engineer Name Role Phone PCP Unavailable Allergies Active [...] Taken Blood Pressure 122/91 09/10/2017 6:33 PM LUBE MAN Pulse 91 09/10/2017 6:33 PM LUBE MAN Temperature 37 C (98.6 F) 09/10/2017 6:33 PM LUBE MAN Respiratory Rate 16 09/10/2017 6:33 PM LUBE MAN Oxygen Saturation 98% 09/10/2017 6:33 PM LUBE MAN Inhaled Oxygen - - Concentration Weight 74.8 kg (165 lb) 09/10/2017 6:33 PM LUBE MAN Height 160 cm (5' 3") 09/10/2017 6:33 PM LUBE MAN Body Mass Index 29.23 09/10/2017 6:33 PM LUBE MAN Plan of Treatment Health Maintenance Due Date Last Done Comments Td # 1978 Cervical Cancer Screening 1999 via Pap Smear Influenza Vaccine (#1) 2018 Results Not on filefrom Last 3 Months
[2018-12-04 23:01] LABS: AMPHETAMINE SCREEN, URINE NEGATIVE (NEGATIVE); BARBITURATE SCREEN URINE NEGATIVE (NEGATIVE); BENZODIAZEPINES SCREEN URINE NEGATIVE (NEGATIVE); CANNABINOID SCREEN, URINE NEGATIVE (NEGATIVE); COCAINE SCREEN URINE NEGATIVE (NEGATIVE); METHAMPHETAMINE SCREEN URINE S NEGATIVE (NEGATIVE); OPIATE SCREEN URINE NEGATIVE (NEGATIVE); TRICYCLIC ANTIDEPRESSANTS SCRE NEGATIVE (NEGATIVE)
[2018-12-04 23:02] LABS: METHADONE STAT NEGATIVE (NEGATIVE); OXYCODONE STAT NEGATIVE (NEGATIVE); PROPOXYPHENE STAT NEGATIVE (NEGATIVE)
[2018-12-04 23:09] LABS: BASOPHILS # (AUTO) 0.1 10^3/uL (0.0-0.1); BASOPHILS % (AUTO) 1 % (0-10); EOSINOPHILS # (AUTO) 0.6 10^3/uL (0.0-0.3); EOSINOPHILS % (AUTO) 7 % (0-10); HEMATOCRIT 38 % (35-52); HEMOGLOBIN 12.5 G/DL (11.5-16.0); LYMPHOCYTES % (AUTO) 41 % (12-44); MEAN CORPUSCULAR HEMOGLOBIN 30 PG (25-34); MEAN CORPUSCULAR HGB CONC 33 G/DL (32-36); MEAN CORPUSCULAR VOLUME 92 FL (80-99); MEAN PLATELET VOLUME 8.6 FL (7.4-10.4); MONOCYTES # (AUTO) 0.8 X 10^3 (0.0-1.0); MONOCYTES % (AUTO) 8 % (0-12); NEUTROPHILS # (AUTO) 4.3 X 10^3 (1.8-7.8); NEUTROPHILS % (AUTO) 44 % (42-75); PLATELET COUNT 371 10^3/uL (130-400); RED CELL DISTRIBUTION WIDTH 13.2 % (10.0-14.5); WHITE BLOOD COUNT 9.7 10^3/uL (4.3-11.0)
[2018-12-04] MEDS ORDERED: HYOSCYAMINE 0.125 MG (LEVSIN) TAB PO ONE (23:15)
[2018-12-04] MEDS ORDERED: PHENAZOPYRIDINE 100 MG (PYRIDIUM) TABLET PO ONE (23:15)
[2018-12-04] MEDS ORDERED: CEFDINIR 300 MG (OMNICEF) CAP PO ONE (23:15)
[2018-12-04 23:26] LABS: ALANINE AMINOTRANSFERASE 34 U/L (0-55); ALBUMIN 4.1 GM/DL (3.2-4.5); ALKALINE PHOSPHATASE 78 U/L (40-136); BILIRUBIN,TOTAL 0.7 MG/DL (0.1-1.0); BUN/CREATININE RATIO 10; CALCIUM 9.6 MG/DL (8.5-10.1); CARBON DIOXIDE 23 MMOL/L (21-32); CHLORIDE 108 MMOL/L (98-107); CREATININE SERUM 0.92 MG/DL (0.60-1.30); GFR ESTIMATED > 60; GLUCOSE 109 MG/DL (70-105); LIPASE 18 U/L (8-78); POTASSIUM 3.5 MMOL/L (3.6-5.0); SODIUM 143 MMOL/L (135-145); TOTAL PROTEIN 7.4 GM/DL (6.4-8.2)
[2018-12-05 00:15] VITALS: BP 136/105
--- NOTE | 2018-12-05 05:26 | Diagnostic Imaging Report ---
INDICATION: Abdominal pain COMPARISON: 09/20/2018 FINDINGS: Supine and upright views of the abdomen show a nondistended bowel gas pattern. Postsurgical changes of previous partial colectomy are noted. No abnormal air fluid levels or free intraperitoneal air is seen. No abnormal extraosseous calcifications are seen. Bony and soft tissue structures are within normal limits. No organomegaly is identified. Accompanying upright chest shows normal heart size and pulmonary vascularity. The lungs are well aerated and clear. The mediastinum is normal in appearance. IMPRESSION: 1. No bowel obstruction or free air. 2. Normal chest. No pneumonia or pulmonary edema. Dictated by: Dictated on workstation # [id number]
[2018-12-05] MEDS ORDERED: ONDA8TAB13 PO (20:29)
== END 2018-12-05 00:17 | disposition home or self-care (01) ==
LOC: EDUNIT# 22:09 → ER 22:11
DX: N39.0 Urinary tract infection, site not specified (principal); J45.909 Unspecified asthma, uncomplicated; I10 Essential (primary) hypertension; K21.9 Gastro-esophageal reflux disease without esophagitis; F41.9 Anxiety disorder, unspecified; Z87.442 Personal history of urinary calculi; Z87.448 Personal history of other diseases of urinary system; Z88.6 Allergy status to analgesic agent; Z88.2 Allergy status to sulfonamides; Z88.0 Allergy status to penicillin; Z88.4 Allergy status to anesthetic agent; Z88.8 Allergy status to other drugs, medicaments and biological substances; Z88.1 Allergy status to other antibiotic agents; Z79.51 Long term (current) use of inhaled steroids; Z87.19 Personal history of other diseases of the digestive system; Z98.890 Other specified postprocedural states; Z90.49 Acquired absence of other specified parts of digestive tract; Z90.710 Acquired absence of both cervix and uterus; Z98.51 Tubal ligation status
CPT/HCPCS: 36415; 74022; 80053; 80306; 81000; 83690; 85025; 86141; 87077; 87088

== ENCOUNTER 2018-12-05 19:48 | Emergency (ER) | payer MEDICAID ==
[~2018-12-05] VITALS: Ht 160 cm; Wt 85.7 kg
[~2018-12-05 19:48] MED LIST changes: +PHEN-639 PO
--- OUTSIDE RECORDS SUMMARY | 2018-12-05 19:53 | XMS REPORT | Clinical Summary ---
Author Author [facility] Organization [facility] Address Unknown Phone Unavailable Care Team Providers Care Transition Nurse Name Role Phone Barber Nguyen MD Unavailable Naveed Lockhart DO PCP Mychart, Generic Provider Unavailable Unavailable Mary Gomez Unavailable Unavailable Loreta Mcfadden Unavailable Source Comments Some departments are not documenting in the electronic medical record. If you do not see the information that you expected, contact Release of Information in the Health Information Management department at [phone] for further assistance in locating additional records.[facility] Allergies Comments Active Allergy Reactions Severity Noted [...] MEDICAID [place] UHC xxxxxxxxxxx Medicaid COMMUNITY PLAN [place] ([place]) [place] [address] Advance Directives Patient has advance care planning documents on file. For more information, please contact: [facility] [address] [place] [address]
--- OUTSIDE RECORDS SUMMARY | 2018-12-05 19:53 | XMS REPORT | Clinical Summary ---
Author Author [facility] Organization [facility] Address Unknown Phone Unavailable Care Team Providers Care Seam Press Operator Name Role Phone PCP Unavailable Allergies Active [...] Taken Blood Pressure 122/91 09/10/2017 6:33 PM BLADDER CHANGER Pulse 91 09/10/2017 6:33 PM BLADDER CHANGER Temperature 37 C (98.6 F) 09/10/2017 6:33 PM BLADDER CHANGER Respiratory Rate 16 09/10/2017 6:33 PM BLADDER CHANGER Oxygen Saturation 98% 09/10/2017 6:33 PM BLADDER CHANGER Inhaled Oxygen - - Concentration Weight 74.8 kg (165 lb) 09/10/2017 6:33 PM BLADDER CHANGER Height 160 cm (5' 3") 09/10/2017 6:33 PM BLADDER CHANGER Body Mass Index 29.23 09/10/2017 6:33 PM BLADDER CHANGER Plan of Treatment Health Maintenance Due Date Last Done Comments Td # 1978 Cervical Cancer Screening 1999 via Pap Smear Influenza Vaccine (#1) 2018 Results Not on filefrom Last 3 Months
[2018-12-05] MEDS ORDERED: ONDA8TAB13 PO (20:29)
[2018-12-05] MEDS ORDERED: ONDANSETRON 4 MG (ZOFRAN) ORAL DISSOLVE TAB PO ONE (20:30)
[2018-12-05] MEDS ORDERED: predniSONE 20 MG TAB PO ONE (20:30)
--- NOTE | 2018-12-05 20:30 | ED Abdominal Pain ---
General Chief Complaint: Abdominal/GI Problems Stated Complaint: CROH'S DISEASE/STOMACH PAIN/UTI Nursing Triage Note: PATIENT HERE AGAIN FOR COMPLAINTS OF ABDOMINAL PAIN. STATES SHE HAS CROHN'S BUT SHE HAS NEW PAIN IN ADDITIONA TO HER NORMAL ABD PAIN. SHE WAS HERE LAST NIGHT FOR THE SAME THING. Sepsis Screen: No Definite Risk Allergies and Home Medications Allergies Coded Allergies: NSAIDS (Non-Steroidal Anti-Inflamma (Verified Allergy, Intermediate, ) Penicillins (Verified Allergy, Mild, HIVES, 02/22/09) penicillin V (Unverified Allergy, Mild, 02/24/09) Sulfa (Sulfonamide Antibiotics) (Verified Allergy, Unknown, 01/17/14) BREAK OUT IN A RED RASH WITH VOMITING ketorolac tromethamine (Unverified Allergy, Unknown, 01/17/14) naproxen (Unverified Allergy, Unknown, 01/17/14) Uncoded Allergies: PCN (Allergy, Mild, 05/01/09) ANTI-INFLAMMATORY (Allergy, Unknown, 01/17/14) Home Medications Albuterol Sulfate 6.7 Gm Hfa.aer.ad, 2 PUFF IH Q6H PRN for SHORTNESS OF BREATH Prescribed by: IGNACIO SHIELDS on 01/31/18 193 Cefuroxime Axetil 250 Mg Tablet, 250 MG PO BID Prescribed by: REAL MUÑOZ on 12/04/18 2239 Loratadine 10 Mg Capsule, 10 MG PO DAILY, (Reported) Phenazopyridine HCl 100 Mg Tablet, 100 MG PO TID Prescribed by: REAL MUÑOZ on 12/04/18 2240 Past Uvfmzqa-Mpxpyq-Xajcff Hx Patient Social History Alcohol Use: Occasionally Uses Recreational Drug Use: No (SMOKES 1/2 PPD) Smoking Status: Former Smoker Type Used: Cigarettes 2nd Hand Smoke Exposure: Yes Recent Foreign Travel: No Contact w/Someone Who Travel: No Recent Infectious Disease Expo: No Recent Hopitalizations: No Immunizations Up To Date Tetanus Booster (TDap): Unknown PED Vaccines UTD: Yes Date of Pneumonia Vaccine: Nov 04, 2010 Date of Influenza Vaccine: Jul 12, 2011 Seasonal Allergies Seasonal Allergies: Yes Past Medical History Surgeries: Yes (BURN SURG, SMALL BOWEL RESECT, NASAL, RIGHT HIP, hernia) Abdominal, Appendectomy, Bowel Surgery, Section, Gallbladder, Hysterectomy, Nose, Orthopedic, 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 Respiratory: Yes Asthma Currently Using CPAP: No Currently Using BIPAP: No Cardiac: Yes Hypertension Neurological: No Reproductive Disorders: Yes (PCOS) 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, 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 Dis SPINNER CAP FRAME History: Hysterectomy Sexually Transmitted Disease: No HIV/AIDS: No Genitourinary: No Kidney Stones Gastrointestinal: Yes (chronic abdominal pain, nausea, vomiting, and diarrhea) Gastroesophageal Reflux, Crohns Disease, Pancreatitis, Ulcer Musculoskeletal: Yes Back Injury, Chronic Back Pain Endocrine: No HEENT: No Cancer: No Psychosocial: Yes Anxiety Integumentary: No Blood Disorders: No Adverse Reaction/Blood Tranf: No Family Medical History Family history: Diabetes mellitus 19 FATHER 19 MOTHER G8 SISTER No Pertinent Family Hx Physical Exam Vital Signs Vital Signs - First Documented 12/05/18 20:00 Temp 97.0 Pulse 87 Resp 18 B/P (MAP) 126/91 (103) Pulse Ox 98 Capillary Refill : Less Than 3 Seconds Height/Weight/BMI Height: 5'3.00" Weight: 189lbs. 0oz. 85.608752sk; 31.3 BMI Method:Stated Progress/Results/Core Measures Results/Orders My Orders Orders - JOSE ASH DO Prednisone Tablet (Deltasone Tablet) (12/05/18 20:30) Vital Signs/I&O 12/05/18 20:00 Temp 97.0 Pulse 87 Resp 18 B/P (MAP) 126/91 (103) Pulse Ox 98 Blood Pressure Mean: 103 Departure Impression Primary Impression: Chronic abdominal pain Additional Impressions: Hx of Crohn's disease UTI (urinary tract infection) Disposition: 01 HOME, SELF-CARE Condition: Stable Departure-Patient Inst. Referrals: ROSANGELA ARMAS DO (PCP/Family) Primary Care Physician Patient Instructions: Acute Abdomen (Belly Pain), Adult (DC), Crohn's Disease ( DC), Urinary Tract Infection, Adult (DC) Add. Discharge Instructions: CONTINUE YOUR ANTIBIOTICS PRESCRIBED FOR UTI CONTINUE YOUR REGULAR MEDICATIONS PRESCRIBED FOLLOW UP WITH DR. ARMAS IN OFFICE TOMORROW FOR FURTHER CARE KEEP YOUR APPOINTMENT ON WEDNESDAY FOR CT SCAN FOLLOW UP WITH DR. LLOYD AND YOUR DIRECTOR ADVERTISING THIS WEEK FOR FURTHER CARE All discharge instructions reviewed with patient and/or family. Voiced understanding. Scripts Ondansetron (Ondansetron Odt) 8 Mg Tab.rapdis 8 MG PO Q6H for Nausea/Vomiting, #10 TAB Prov: JOSE ASH DO 12/05/18 JOSE ASH DO Dec 05, 2018 20:30
[2018-12-05 20:40] VITALS: BP 126/91
== END 2018-12-05 20:40 | disposition home or self-care (01) ==
LOC: EDUNIT# 19:48 → ER 19:49
DX: N39.0 Urinary tract infection, site not specified (principal); J45.909 Unspecified asthma, uncomplicated; I10 Essential (primary) hypertension; K21.9 Gastro-esophageal reflux disease without esophagitis; F41.9 Anxiety disorder, unspecified; Z87.442 Personal history of urinary calculi; Z87.448 Personal history of other diseases of urinary system; Z88.6 Allergy status to analgesic agent; Z88.0 Allergy status to penicillin; Z88.2 Allergy status to sulfonamides; Z88.4 Allergy status to anesthetic agent; Z88.8 Allergy status to other drugs, medicaments and biological substances; Z79.51 Long term (current) use of inhaled steroids; Z87.19 Personal history of other diseases of the digestive system; Z87.891 Personal history of nicotine dependence; Z90.49 Acquired absence of other specified parts of digestive tract; Z98.890 Other specified postprocedural states; Z90.710 Acquired absence of both cervix and uterus; Z98.51 Tubal ligation status
CPT/HCPCS: 99283

== ENCOUNTER → 2018-12-08 | Outpatient (CLI) | payer MEDICAID ==
--- NOTE | 2018-12-08 09:51 | Diagnostic Imaging Report ---
PROCEDURE: CT abdomen and pelvis without contrast. TECHNIQUE: Multiple contiguous axial images were obtained through the abdomen and pelvis without the use of intravenous contrast. INDICATION: Midabdominal pain. COMPARISON: Correlation is made with prior CT from 10/22/2018. FINDINGS: The lung bases are clear. No discrete liver mass is identified. The gallbladder is surgically absent. No biliary ductal dilatation is identified. The pancreas and spleen are unremarkable. No adrenal mass is detected. Right kidney does contain a tiny nonobstructing calculus in the upper pole. No left-sided renal calculi are seen. There is no hydronephrosis identified. The aorta is non-aneurysmal. Bowel loops appear to be nondilated. There are postsurgical changes in the right colon. There is no ascites. There appear to be postop changes to the anterior abdominal wall. There is some laxity in the anterior abdominal wall but no focal defect or hernia is seen. No fluid collection or free air is identified. The bladder is unremarkable. The bony structures are nonacute. IMPRESSION: Stable noncontrast CT of the abdomen and pelvis when compared with the exam from 10/22/2018. No acute abnormality is detected. Dictated by: Dictated on workstation # [id number]
== END ==
LOC: RAD 08:48
PROVIDERS: ATTEND Family Medicine
DX: R10.9 Unspecified abdominal pain (principal); Z90.49 Acquired absence of other specified parts of digestive tract
CPT/HCPCS: 74176

== ENCOUNTER 2019-02-06 05:34 | Outpatient (CLI) | payer MEDICAID ==
[~2019-02-06] VITALS: Ht 160 cm; Wt 85.7 kg
[2019-02-06] MEDS ORDERED: ADAL40KI SQ (13:01)
[2019-02-06] MEDS ORDERED: OMEP40CA36 PO (13:01)
[2019-02-06] MEDS ORDERED: CALC600T12 PO (13:01)
[2019-02-06] MEDS ORDERED: ACET-2267 PO (13:01)
[2019-02-08] MEDS ORDERED: ACHD5005 PO (09:26)
== END 2019-02-06 13:19 | disposition home or self-care (01) ==
LOC: PREOP 05:34
PROVIDERS: ATTEND Surgery
DX: Z01.818 Encounter for other preprocedural examination (principal)

== ENCOUNTER 2019-02-08 06:45 | Day surgery (SDC) | payer MEDICAID ==
[~2019-02-08] VITALS: Ht 160 cm; Wt 85.7 kg
[~2019-02-08 06:45] MED LIST changes: +ADAL40KI SQ; +CALC600T12 PO
--- OUTSIDE RECORDS SUMMARY | 2019-02-08 06:49 | XMS REPORT | Clinical Summary ---
Author Author [facility] Address Unknown Phone Unavailable Care Team Providers Care [employer] Learning Support Teacher Name Role Phone Barber Nguyen MD Unavailable Naveed Lockhart DO PCP Mychart, Generic Provider Unavailable Unavailable Mary Gomez Unavailable Unavailable Loreta Mcfadden Unavailable Source Comments Some departments are not documenting in the electronic medical record. If you do not see the information that you expected, contact Release of Information in the Health Information Management department at [phone] for further assistance in locating additional records.[facility] Allergies Comments Active Allergy Reactions Severity Noted [...] 2008 BREAST CANCER SCREENING 2018 INFLUENZA VACCINE 05/25/2019 09/06/2006 Results Not on filefrom Last 3 Months Insurance Type Payer Benefit Subscriber ID Effective Phone Address Plan / Dates Group Medicaid UHC MEDICAID [place] UHC xxxxxxxxxxx [id number] COMMUNITY [place] PLAN [place] (Home) [place] [address] Advance Directives Patient has advance care planning documents on file. For more information, please contact: [facility] [address] [place] [address]
--- OUTSIDE RECORDS SUMMARY | 2019-02-08 06:49 | XMS REPORT ---
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 Name Role Phone Migration, Doctor Unavailable Unavailable PROBLEMS Type Condition ICD9-CM Code [id number] Code Onset Dates Condition Status SNOMED Code Problem Injury, other and unspecified, unspecified site 959.9 Active 762471338 Problem Injury, other and unspecified, knee, leg, ankle, and foot 959.7 Active 290007863 Problem Other drug allergy 995.27 Active 211015640 Problem Pain in joint, ankle and foot 719.47 Active 497148864 Problem Acute pain due to trauma 338.11 Active 543974532 Problem Diarrhea 787.91 Active 82056042 Problem Nausea alone 787.02 Active 788171121 Problem Shortness of breath 786.05 Active 804992244 Problem Other general symptoms 780.99 Active 219713206 ALLERGIES No Information ENCOUNTERS Encounter Location Date Diagnosis [facility] [address] [id number] 14 Oct, 2015 Dental examination Z01.20 [facility] [address] [address] Jan, [facility] [id number] [place] [address] Jan, [facility] [id number] [place] [address] February, [facility] [address] [address] February, [facility] [address] [address] May, [facility] [address] [address] May, [facility] [address] [place] [address] Apr, [facility] [address] [id number] [place] [address] Mar, [facility] [place] [facility] [address] [id number] [place] [address] February, [facility] [address] [id number] [place] [address] February, [facility] [place] [facility] [address] [id number] [place] [address] February, [facility] [place] [facility] [address] [id number] [place] [address] 26 Jan, 2012 [facility] [place] [facility] [address] [id number] [place] [address] 13 Jan, 2012 [facility] [address] [id number] [place] [address] Jan, [facility] [place] [facility] [address] [id number] [place] [address] Jan, [facility] [place] [facility] [address] [id number] [place] [address] 02 Jan, 2012 [facility] [place] [facility] [address] [id number] [place] [address] Dec, [facility] [place] [facility] [address] [id number] [place] [address] Dec, [facility] [place] [facility] [address] [id number] [place] [address] 05 Dec, 2011 [facility] [place] [facility] [address] [id number] [place] [address] Dec, [facility] [place] [facility] [address] [id number] [place] [address] Nov, [facility] [place] [facility] [address] [id number] [place] [address] Nov, [facility] [place] [facility] [address] [id number] [place] [address] Nov, [facility] [place] [facility] [address] [id number] [place] [address] Nov, [facility] [place] [facility] [address] [id number] [place] [address] Nov, [facility] [place] [facility] [address] [id number] [place] [address] Nov, [facility] [place] [facility] [address] [id number] [place] [address] 14 Nov, 2011 [facility] [place] [facility] [address] [id number] [place] [address] 10 Nov, 2011 [facility] [place] [facility] [address] [id number] [place] [address] 08 Nov, 2011 [facility] [place] [facility] [address] [id number] [address] Nov, [facility] [address] [facility] [id number] [id number] Nov, [facility] [address] [id number] [address] Nov, [facility] [place] [facility] [address] [id number] [address] Oct, [facility] [place] [facility] [address] [id number] [address] Oct, [facility] [place] [facility] [address] [id number] [place] [address] Oct, [facility] [place] [facility] [address] [id number] [address] Oct, [facility] [place] [facility] [address] [id number] [place] [address] Sep, [facility] [place] [facility] [address] [id number] [place] [address] 14 Sep, 2011 [facility] [place] [facility] [address] [id number] [place] [address] 13 Sep, 2011 [facility] [place] [facility] [address] [id number] [place] [address] Sep, [facility] [place] [facility] [address] [id number] [place] [address] Aug, [facility] [place] [facility] [address] [id number] [place] [address] Aug, [facility] [place] [facility] [address] [id number] [place] [address] Aug, [facility] [place] [facility] [address] [id number] [place] [address] Aug, [facility] [place] [facility] [address] [id number] [place] [address] Jul, [facility] [place] [facility] [address] [id number] [place] [address] Jul, [facility] [place] [facility] [address] [id number] [place] [address] 18 Jul, 2011 [facility] [place] [facility] [address] [facility] [id number] [place] [address] Oct, [facility] [place] [facility] [address] [id number] [place] [address] Jul, [facility] [place] [facility] [address] [id number] [address] 19 Jul, 2010 [facility] [place] [facility] [address] [id number] [place] [address] 19 Jul, 2010 [facility] [place] [facility] [address] [id number] [place] [address] 19 Jul, 2010 [facility] [place] [facility] [address] [facility] [id number] [place] [address] 15 Jul, 2010 [facility] [place] [facility] [address] [facility] [id number] [place] [address] Dec, [facility] [address] [id number] [address] Nov, [facility] [address]00565100[place] [address] Sep, [facility] [address]65100[place] [address] Aug, [facility] [address] [id number] [address] Jul, [facility] [address]65100[place] [address] Jun, IMMUNIZATIONS No Known Immunizations SOCIAL HISTORY Never Assessed REASON FOR VISIT EMR-[facility] [place] PLAN OF CARE VITAL SIGNS MEDICATIONS Medication Instructions Dosage Frequency Start Date End Date Duration Status PredniSONE 20 mg 1 tablet by Oral route 2 times per day for 5 day(s) Apr, Active Mesalamine 500 mg 2 capsule by Oral route 4 times per day Nov, Active Tamiflu 75 mg take 1 capsule (75 mg) by oral route 2 times per day for 5 day(s) Nov, Active ZyrTEC 10 mg 1 tablet by Oral route 1 time per day Apr, Active Hydrocortisone 10 % (80 mg) 1 appful by Rectal route 3 times per week Nov, Active Zofran ODT 8 mg 1 tablet by Oral route every 8 hoursPRN Apr, Active Lexapro 10 mg 1 tablet by Oral route 1 time per day Jan, Active RESULTS No Results PROCEDURES No Known procedures INSTRUCTIONS MEDICATIONS ADMINISTERED No Known Medications MEDICAL (GENERAL) HISTORY Type Description Date Medical History asthma Medical History crohns Medical History arthritis Medical History back trouble Hospitalization History crohns disease
--- OUTSIDE RECORDS SUMMARY | 2019-02-08 06:49 | XMS REPORT | Clinical Summary ---
Author Author [facility] Organization [facility] Address Unknown Phone Unavailable Care Team Providers Care Emergency Department Director Name Role Phone PCP Unavailable Allergies Active [...] Taken Blood Pressure 122/91 09/10/2017 6:33 PM ON SITE WASTEWATER SYSTEMS TECHNICIAN Pulse 91 09/10/2017 6:33 PM ON SITE WASTEWATER SYSTEMS TECHNICIAN Temperature 37 C (98.6 F) 09/10/2017 6:33 PM ON SITE WASTEWATER SYSTEMS TECHNICIAN Respiratory Rate 16 09/10/2017 6:33 PM ON SITE WASTEWATER SYSTEMS TECHNICIAN Oxygen Saturation 98% 09/10/2017 6:33 PM ON SITE WASTEWATER SYSTEMS TECHNICIAN Inhaled Oxygen - - Concentration Weight 74.8 kg (165 lb) 09/10/2017 6:33 PM ON SITE WASTEWATER SYSTEMS TECHNICIAN Height 160 cm (5' 3") 09/10/2017 6:33 PM ON SITE WASTEWATER SYSTEMS TECHNICIAN Body Mass Index 29.23 09/10/2017 6:33 PM ON SITE WASTEWATER SYSTEMS TECHNICIAN Plan of Treatment Health Maintenance Due Date Last Done Comments Td # 1978 Cervical Cancer Screening 1999 via Pap Smear Influenza Vaccine (Season 08/25/2019 Ended) Results Not on filefrom Last 3 Months
[2019-02-08 07:10] VITALS: BP 127/90
[2019-02-08] MEDS ORDERED: LIDOCAINE 1% INJ 20 ML 20 ML VIAL ONE (07:11)
[2019-02-08] MEDS ORDERED: BUP/EPI 0.5% 1:200,000 (SENSORCAINE) 30 ML VIAL ONE (07:11)
[2019-02-08] MEDS ORDERED: LIDOCAINE PF 2% 5 ML (XYLOCAINE) VIAL ONE (07:32)
[2019-02-08] MEDS ORDERED: proPOfol 200 MG/20 ML (DIPRIVAN) VIAL IV ONE (07:32)
[2019-02-08] MEDS ORDERED: MIDAZOLAM 2 MG/2 ML (VERSED) VIAL ONE (07:32)
[2019-02-08] MEDS ORDERED: ONDANSETRON 4 MG/2 ML (SDV) Z0FRAN ONE (07:32)
[2019-02-08] MEDS ORDERED: fentaNYL INJECTION 100 MCG/2 ML AMP ONE (07:33)
[2019-02-08] MEDS ORDERED: DEXAMETHASONE 10 MG/ML (DECADRON) 1 ML VIAL ONE (07:40)
[2019-02-08] MEDS ORDERED: SEVOFLURANE (ULTANE) 15 ML INHAL SOLN ONE ×4 (07:40→08:59)
[2019-02-08] MEDS ORDERED: LACTATED RINGERS 1,000 ML IV PRN (07:59)
[2019-02-08] MEDS ORDERED: CLINDAMYCIN 600 MG/50 ML IVPB 50 ML IV ONE (08:00)
--- NOTE | 2019-02-08 08:39 | Progress Note-Pre Operative ---
Pre-Operative Progress Note H&P Reviewed The H&P was reviewed, patient examined and no changes noted. Time Seen by Provider: 08:34 Date H&P Reviewed: Feb 08, 2019 Time H&P Reviewed: 08:35 Pre-Operative Diagnosis: Right Axillary Hidradentitis CHELE ANGEL DO Feb 08, 2019 08:39
--- NOTE | 2019-02-08 09:25 | Progress Note-Post Operative ---
Post-Operative Progess Note Surgeon (s)/Still Cleaner Tube (s) Surgeon CHELE ANGEL DO Still Cleaner Tube: Jose Maria Whitmore MSIII Pre-Operative Diagnosis Right Axillary Hidradentitis Post-Operative Diagnosis same Procedure & Operative Findings Date of Procedure 02/08/19 Procedure Performed/Findings Excision right axillary hidradenitis, appx 9cm incision down to fascia Anesthesia Type GET Estimated Blood Loss Estimated blood loss (mL): less than 5ml Specimens/Packing Specimens Removed right axillary skin, necrotic tissue; hidradenitis CHELE ANGEL DO Feb 08, 2019 09:25
[2019-02-08] MEDS ORDERED: ACHD5005 PO (09:26)
--- NOTE | 2019-02-08 09:28 | Discharge Inst-Surgical ---
Discharge Inst-Surgical Depart Medication/Instructions New, Converted or Re-Newed RX: RX Given to Pt/Family Patient Instructions Follow up Appt: Make appointment for 1 week. [phone] Instructions: No strenuous activity. May shower in 24 hours, no tub bath or soaking. Use incentive spirometer at home as directed. No Smoking Skin/Wound Care: May remove bandages in am. You need to come in to office to have sutures removed. Symptoms to Report: Appetite Changes, Extremity Discoloration, Numbness/Tingling, Swelling Increased , Bleeding Excessive, Eyesight Changes, Pain Increased, Urine Color Change, Constipation(Persistent), Fever over 101 degree F, Pain/Pressure in chest, Urinating Difficulty, Cough Up/Vomit Blood, Heart Beat Irreg/Pounding, Pain/ Pressure in jaw, Cramps in feet or legs, Lightheadedness, Pain/Pressure in shoulder, Diarrhea(Persistent), Memory Changes Suddenly, Questions/Concerns, Weight gain consecutive days, Dizziness/Fainting, Nausea/Vomiting, Shortness of Breath, Weight gain over 2 pounds If questions or concerns contact your physician Or seek help at emergency department. Activity Activity Instructions: Avoid Stress to Incision Driving Instructions: No Driving/Refer to Dr. Santiago Discharge Diet: No Restrictions Diet After 24 Hours: Clear Liquid if Nauseous If Any Problems/Questions/Issu: Contact Your Physician, Go to Emergency Room Skin/Wound Care Infection Signs and Symptoms: Increased Redness, Foul Odor of Wound, Increased Drainage, Skin Itchy or Has a Rash, Increased Swelling, Temperature Above 101 F Bathing Instructions: Shower Stitches/Wale/Dermabond Dis: Care of Stitches Ice Pack: Ice On and Off Site (as needed for pain) CHELE ANGEL DO Feb 08, 2019 09:28
[2019-02-08] MEDS ORDERED: morphine INJ 10 MG/ML 1ML (SYR OR VIAL) IVP ONE (09:45)
[2019-02-08] MEDS ORDERED: ONDANSETRON 4 MG/2 ML (SDV) Z0FRAN IVP PRN (09:45)
[2019-02-08 10:35] VITALS: BP 118/81
[2019-02-08] MEDS ORDERED: HYDROcodone/APAP 5 MG/325 MG (LORTAB) TAB ONE (11:04)
[2019-02-08 11:05] VITALS: BP 117/77
[2019-02-08] MEDS ORDERED: HYDROcodone/APAP 5 MG/325 MG (LORTAB) TAB PO ONE (11:15)
[2019-02-08 11:35] VITALS: BP 107/70
--- NOTE | 2019-02-08 11:43 | Anesthesia-General Post-Op ---
General Patient Condition Mental Status/LOC: Same as Preop Cardiovascular: Satisfactory Nausea/Vomiting: Absent Respiratory: Satisfactory Pain: Controlled Complications: Absent Post Op Complications Complications None Follow Up Care/Instructions Patient Instructions None needed. Anesthesia/Patient Condition Patient Condition Patient is doing well, no complaints, stable vital signs, no apparent adverse anesthesia problems. No complications reported per nursing. D/C home per [facility] Criteria: Yes SUSHIL TAPIA CRNA Feb 08, 2019 11:43
--- NOTE | 2019-02-08 16:03 | OPERATIVE REPORT ---
DATE OF SERVICE: 02/08/2019 PREOPERATIVE DIAGNOSIS: Right axillary hidradenitis. POSTOPERATIVE DIAGNOSIS: Right axillary hidradenitis. PROCEDURE: Excision of right axillary hidradenitis approximately 9 cm incision down to the fascia. SURGEON: Antwon Garcia DO. OCCUPATIONAL HEALTH AND SAFETY OFFICER: , MS3 SPECIMEN: Right axillary skin necrotic tissue based with the hidradenitis. BLOOD LOSS: Less than 5 mL. FLUIDS: Per anesthesia. POSTOPERATIVE CONDITION: Stable. INDICATION FOR PROCEDURE: The patient is a 38-year-old female, who has hidradenitis and has continued drainage in the right axilla and wanted to get this fixed. We did have a long discussion regarding the fact that surgery sometimes makes it worse, heals very poorly, especially since she is on some immune suppressors. She understood this and still wanted to get this done. FINDINGS: The patient had a large area of hidradenitis deep into the axilla down to the fascia of the axilla that had to remove all of the necrotic tissue, made about a 9 cm incision. PROCEDURE NOTE: After informed consent was obtained, the patient was brought to the operating room and placed on the table in supine. She was sterilely prepped and draped in normal fashion. Local lidocaine was used to infiltrate the skin around the right axillary hidradenitis in the axilla and I then made an incision with 15 blade, carried down to skin and subcutaneous tissues, started more in the upper portion of the axilla where the largest fullness was felt down to the skin into the subcutaneous tissue, then deepened down to subcutaneous tissue with Bovie electrocautery. Then, I lengthened this incision to try and get all of the necrotic tissue, making about approximately a 9 cm incision. There was a lot of necrotic tissue. In order to get this out I had to go down to the fascia of the axilla. I did not go into the axillary fat pad, cut out all of the necrotic tissue, copiously irrigated with normal saline. Hemostasis was obtained using Bovie electrocautery. I then created some flaps superiorly and inferiorly to be able to bring the skin together and then closed the incision with three vertical mattress sutures and then six simple interrupted sutures. Area was cleaned and dried. Fluff dressing was placed. The patient then transferred to the recovery room in stable condition. Sponge, instrument and needle counts were correct at the end of the case. Job ID: [id number] DocumentID: [id number] Dictated Date: 02/08/2019 09:31:07 Carbon Paste Mixer Operator Date: 02/08/2019 13:56:42 Dictated By: ANTWON GARCIA DO
== END 2019-02-08 11:37 | disposition home or self-care (01) ==
LOC: SDC 06:45
PROVIDERS: ATTEND Surgery
DX: L73.2 Hidradenitis suppurativa (principal); Z11.2 Encounter for screening for other bacterial diseases; F17.210 Nicotine dependence, cigarettes, uncomplicated; J45.909 Unspecified asthma, uncomplicated; F41.9 Anxiety disorder, unspecified; M54.9 Dorsalgia, unspecified; G89.29 Other chronic pain; E28.2 Polycystic ovarian syndrome; K50.90 Crohn's disease, unspecified, without complications; Z87.442 Personal history of urinary calculi; Z79.899 Other long term (current) drug therapy
CPT/HCPCS: 87081

== ENCOUNTER 2019-04-12 17:02 | Emergency (ER) | payer SELFPAY ==
[~2019-04-12] VITALS: Ht 160 cm; Wt 89.8 kg
[2019-04-12] MEDS ORDERED: NS IV 1000 ML 1,000 ML IV SCH (19:19)
[2019-04-12 19:30] LABS: BASOPHILS % (AUTO) 1 % (0-10); EOSINOPHILS # (AUTO) 0.4 10^3/uL (0.0-0.3); EOSINOPHILS % (AUTO) 5 % (0-10); HEMATOCRIT 38 % (35-52); HEMOGLOBIN 12.3 G/DL (11.5-16.0); LYMPHOCYTES # (AUTO) 3.1 X 10^3 (1.0-4.0); LYMPHOCYTES % (AUTO) 40 % (12-44); MEAN CORPUSCULAR HEMOGLOBIN 31 PG (25-34); MEAN CORPUSCULAR HGB CONC 33 G/DL (32-36); MEAN CORPUSCULAR VOLUME 94 FL (80-99); MEAN PLATELET VOLUME 8.6 FL (7.4-10.4); MONOCYTES # (AUTO) 0.6 X 10^3 (0.0-1.0); MONOCYTES % (AUTO) 7 % (0-12); NEUTROPHILS # (AUTO) 3.7 X 10^3 (1.8-7.8); NEUTROPHILS % (AUTO) 48 % (42-75); PLATELET COUNT 365 10^3/uL (130-400); RED CELL DISTRIBUTION WIDTH 13.1 % (10.0-14.5); WHITE BLOOD COUNT 7.7 10^3/uL (4.3-11.0)
[2019-04-12] MEDS ORDERED: ONDANSETRON 4 MG/2 ML (SDV) Z0FRAN IVP ONE (19:30)
[2019-04-12 19:33] LABS: BILIRUBIN,URINE NEGATIVE (NEGATIVE); CLARITY,URINE CLEAR; COLOR,URINE YELLOW; GLUCOSE, URINE (UA) NEGATIVE (NEGATIVE); KETONES,URINE NEGATIVE (NEGATIVE); LEUKOCYTE ESTERASE ,URINE NEGATIVE (NEGATIVE); NITRITE,URINE NEGATIVE (NEGATIVE); PH,URINE 6.5 (5-9); PROTEIN,URINE NEGATIVE (NEGATIVE); UROBILINOGEN,URINE NORMAL (NORMAL)
[2019-04-12 19:41] LABS: BACTERIA,URINE TRACE /HPF; SQUAMOUS EPITHELIAL CELL,UR 0-2 /HPF; WBC,URINE RARE /HPF
[2019-04-12 19:42] LABS: ALANINE AMINOTRANSFERASE 33 U/L (0-55); ALBUMIN 4.3 GM/DL (3.2-4.5); ALKALINE PHOSPHATASE 83 U/L (40-136); BILIRUBIN,TOTAL 0.5 MG/DL (0.1-1.0); BUN/CREATININE RATIO 8; CALCIUM 9.4 MG/DL (8.5-10.1); CARBON DIOXIDE 25 MMOL/L (21-32); CREATININE SERUM 0.97 MG/DL (0.60-1.30); GFR ESTIMATED > 60; GLUCOSE 80 MG/DL (70-105); TOTAL PROTEIN 7.3 GM/DL (6.4-8.2)
[2019-04-12] MEDS ORDERED: PROMETHAZINE INJ 25 MG/ML (PHENERGAN) AMP IVP STA (19:47)
[2019-04-12] MEDS ORDERED: DIPHENOXYLATE/ATROPINE 2.5MG/0.025MG (LOMOTIL) TAB PO STA (19:47)
[2019-04-12] MEDS ORDERED: PANTOPRAZOLE 40 MG (PROTONIX) TAB PO ONE (20:00)
[2019-04-12 20:20] LABS: CHLORIDE 107 MMOL/L (98-107); POTASSIUM 3.5 MMOL/L (3.6-5.0); SODIUM 140 MMOL/L (135-145)
--- NOTE | 2019-04-12 20:34 | ED GI ---
General Chief Complaint: Abdominal/GI Problems Stated Complaint: ABD PAIN Nursing Triage Note: PT REPORTS ABD PAIN THAT HAS BEEN GOING ON FOR ABOUT A WEEK. PT REPORTS NAUSEA. PT NOTICED THAT TOILET PAPER HAS PINK TINGE WHEN SHE WIPES AFTER URINATION. Sepsis Screen: No Definite Risk History of Present Illness Date Seen by Provider: Apr 12, 2019 Time Seen by Provider: 18:00 Initial Comments 39-year-old female presents with a history of Crohn's disease. She is complaining of abdominal pain for approximately one week. She has intermittent nausea which has not been responsive to Zofran. Timing/Duration: 4-5 Days Severity/Quality: Moderate Location: Generalized Abdomen Radiation: No Radiation Associated Symptoms: No Back Pain, No Chest Pain, No Diaphoresis, No Fever/Chills, No Fatigue, No Headache, No Heartburn; Nausea/Vomiting; No Shortness of Air, No Swelling/Mass in Abdomen, No Syncope, No Weakness Allergies and Home Medications Allergies Coded Allergies: Penicillins (Verified Allergy, Mild, HIVES, 04/12/19) NSAIDS (Non-Steroidal Anti-Inflamma (Verified Allergy, Unknown, 04/12/19) UNABLE TO TAKE D/T CROHNS DISEASE Sulfa (Sulfonamide Antibiotics) (Verified Allergy, Unknown, 04/12/19) BREAK OUT IN A RED RASH WITH VOMITING ketorolac tromethamine (Unverified Allergy, Unknown, 04/12/19) UNABLE TO TAKE D/T CROHNS DISEASE naproxen (Unverified Allergy, Unknown, 04/12/19) UNABLE TO TAKE D/T CROHNS DISEASE tramadol (Verified Allergy, Unknown, 04/12/19) UNABLE TO TAKE D/T CROHNS DISEASE Home Medications Acetaminophen 500 Mg Tablet, 1,000 MG PO TID PRN for PAIN-MILD TO MODERATE, (Reported) Adalimumab 40 Mg/0.8 Ml Syringekit, 40 MG SQ Hewitt, (Reported) Albuterol Sulfate 6.7 Gm Hfa.aer.ad, 2 PUFF IH Q6H PRN for SHORTNESS OF BREATH Prescribed by: IGNACIO SHIELDS on 01/31/181933 Calcium Carbonate 600 Mg Tablet, 600 MG PO DAILY, (Reported) Hydrocodone Bit/Acetaminophen 1 Tab Tab, 1 TAB PO Q6H PRN for PAIN-MODERATE Prescribed by: CHELE ANGEL on 02/08/19 09 Omeprazole 40 Mg Capsule.dr, 40 MG PO DAILY, (Reported) Patient Home Medication List Home Medication List Reviewed: Yes Review of Systems Review of Systems Constitutional: no symptoms reported, see HPI Gastrointestinal: See HPI, Diarrhea, Nausea, Poor Fluid Intake, Vomiting All Other Systems Reviewed Negative Unless Noted: Yes Past Hnilcoi-Ykbklk-Ymargd Hx Past Med/Social Hx: Reviewed Nursing Past Med/Soc Hx Patient Social History Alcohol Use: Occasionally Uses Recreational Drug Use: No (SMOKES 1/2 PPD) Smoking Status: Former Smoker Type Used: Cigarettes Former Smoker, Quit: Nov 08, 2017 2nd Hand Smoke Exposure: Yes Recent Foreign Travel: No Contact w/Someone Who Travel: No Recent Infectious Disease Expo: No Recent Hopitalizations: Yes (DECEMBER 2018-CROHNS) Physical Abuse: No Sexual Abuse: No Immunizations Up To Date Tetanus Booster (TDap): Unknown PED Vaccines UTD: Yes Date of Pneumonia Vaccine: Nov 04, 2010 Date of Influenza Vaccine: Jul 12, 2011 Seasonal Allergies Seasonal Allergies: Yes Past Medical History Surgeries: Yes Abdominal, Appendectomy, Bowel Surgery, Section, Gallbladder, Hysterectomy, Nose, Orthopedic, 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 Respiratory: Yes Asthma Currently Using CPAP: No Currently Using BIPAP: No Cardiac: No Hypertension Neurological: No Reproductive Disorders: Yes (PCOS) 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, 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 Dis 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 Sexually Transmitted Disease: No HIV/AIDS: No Genitourinary: Yes Kidney Stones Gastrointestinal: Yes (chronic abdominal pain, nausea, vomiting, and diarrhea) Gastroesophageal Reflux, Crohns Disease, Pancreatitis, Ulcer Musculoskeletal: Yes (CHRONIC PAIN-WRISTS, LOWER BACK, HIPS, SI JOINT PAIN ) Back Injury, Chronic Back Pain Endocrine: No HEENT: Yes (GLASSES) Loss of Vision: Bilateral Hearing Impairment: Denies Cancer: No Psychosocial: Yes Anxiety Integumentary: No Blood Disorders: No Adverse Reaction/Blood Tranf: No (N/A) Family Medical History Family history: Diabetes mellitus 19 FATHER 19 MOTHER G8 SISTER No Pertinent Family Hx Physical Exam Vital Signs Vital Signs - First Documented 04/12/19 17:15 Temp 98.4 Pulse 85 Resp 16 B/P (MAP) 154/94 (114) Pulse Ox 98 Capillary Refill : Less Than 3 Seconds Height/Weight/BMI Height: 5'3.00" Weight: 198lbs. 0.0oz. 89.934961gc; 33.5 BMI Method:Actual General Appearance: WD/WN, no apparent distress Neck: non-tender, full range of motion, supple, normal inspection Respiratory: chest non-tender, lungs clear, normal breath sounds Cardiovascular: normal peripheral pulses, regular rate, rhythm Gastrointestinal: normal bowel sounds, soft; No distended, No guarding, No rebound; tenderness (generalized); No mass Back: normal inspection, no CVA tenderness, no vertebral tenderness Neurologic/Psychiatric: no motor/sensory deficits, alert, normal mood/affect, oriented x 3 Skin: normal color, warm/dry Progress/Results/Core Measures Results/Orders Lab Results Laboratory Tests Test 04/12/19 18:20 04/12/19 19:26 Range/Units White Blood Count 7.7 4.3-11.0 10^3/uL Red Blood Count 3.99 L 4.35-5.85 10^6/uL Hemoglobin 12.3 11.5-16.0 G/DL Hematocrit 38 35-52 % Mean Corpuscular Volume 94 80-99 FL Mean Corpuscular Hemoglobin 31 25-34 PG Mean Corpuscular Hemoglobin Concent 33 32-36 G/DL Red Cell Distribution Width 13.1 10.0-14.5 % Platelet Count 365 130-400 10^3/uL Mean Platelet Volume 8.6 7.4-10.4 FL Neutrophils (%) (Auto) 48 42-75 % Lymphocytes (%) (Auto) 40 12-44 % Monocytes (%) (Auto) 7 0-12 % Eosinophils (%) (Auto) 5 0-10 % Basophils (%) (Auto) 1 0-10 % Neutrophils # (Auto) 3.7 1.8-7.8 X 10^3 Lymphocytes # (Auto) 3.1 1.0-4.0 X 10^3 Monocytes # (Auto) 0.6 0.0-1.0 X 10^3 Eosinophils # (Auto) 0.4 H 0.0-0.3 10^3/uL Basophils # (Auto) 0.0 0.0-0.1 10^3/uL Sodium Level 140 135-145 MMOL/L Potassium Level 3.5 L 3.6-5.0 MMOL/L Chloride Level 107 98-107 MMOL/L Carbon Dioxide Level 25 21-32 MMOL/L Anion Gap 8 5-14 MMOL/L Blood Urea Nitrogen 8 7-18 MG/DL Creatinine 0.97 0.60-1.30 MG/DL Estimat Glomerular Filtration Rate > 60 BUN/Creatinine Ratio 8 Glucose Level 80 70-105 MG/DL Calcium Level 9.4 8.5-10.1 MG/DL Corrected Calcium 9.2 8.5-10.1 MG/DL Total Bilirubin 0.5 0.1-1.0 MG/DL Aspartate Amino Transf (AST/SGOT) 25 5-34 U/L Alanine Aminotransferase (ALT/SGPT) 33 0-55 U/L Alkaline Phosphatase 83 40-136 U/L Total Protein 7.3 6.4-8.2 GM/DL Albumin 4.3 3.2-4.5 GM/DL Urine Color YELLOW Urine Clarity CLEAR Urine pH 6.5 5-9 Urine Specific [place] 1.005 L 1.016-1.022 Urine Protein NEGATIVE NEGATIVE Urine Glucose (UA) NEGATIVE NEGATIVE Urine Ketones NEGATIVE NEGATIVE Urine Nitrite NEGATIVE NEGATIVE Urine Bilirubin NEGATIVE NEGATIVE Urine Urobilinogen NORMAL NORMAL MG/DL Urine Leukocyte Esterase NEGATIVE NEGATIVE Urine RBC (Auto) NEGATIVE NEGATIVE Urine RBC NONE /HPF Urine WBC RARE /HPF Urine Squamous Epithelial Cells 0-2 /HPF Urine Crystals NONE /LPF Urine Bacteria TRACE /HPF Urine Casts NONE /LPF Urine Mucus NEGATIVE /LPF Urine Culture Indicated NO My Orders Orders - OPHELIA CORTEZ Ed Iv/Invasive Line Start (04/12/19 19:19) Ns Iv 1000 Ml (Sodium Chloride 0.9%) (04/12/19 19:19) Cbc With Automated Diff (04/12/19 19:19) Comprehensive Metabolic Panel (04/12/19 19:19) Ua Culture If Indicated (04/12/19 19:19) Urine Bedside (04/12/19 19:19) Ondansetron Injection (Zofran Injectio (04/12/19 19:30) Promethazine Injection (Phenergan Injec (04/12/19 19:47) Pantoprazole Tablet (Protonix Tablet) (04/12/19 20:00) Diphenoxylate/Atropine Tablet (Lomotil T (04/12/19 19:47) Rx-Diphenoxylate/Atropine (Rx-Lomotil 2. (04/12/19 21:08) Medications Given in ED Current Medications Medications Dose Ordered Sig/Dominga Route Start Time Stop Time Status Last Admin Dose Admin Ondansetron HCl 4 mg ONCE ONCE IVP 04/12/19 19:30 04/12/19 19:33 DC 04/12/19 19:27 4 MG Pantoprazole Sodium 40 mg ONCE ONCE PO 04/12/19 20:00 04/12/19 20:01 DC 04/12/19 20:02 40 MG Vital Signs/I&O 04/12/19 04/12/19 17:15 21:20 Temp 98.4 98.4 Pulse 85 72 Resp 16 16 B/P (MAP) 154/94 (114) 121/76 (91) Pulse Ox 98 98 Blood Pressure Mean: 114 Progress Progress Note : Time: 18:00 Progress Note Patient seen and evaluated, we will give 1 L normal saline per IV, Zofran 4 mg IV and obtain labs. 1899 labs essentially normal, urine clear, patient reports minimal improvement with the Zofran. We'll give Phenergan 25 mg IV, Protonix and Lomotil. 1999 patient reports improvement in her symptoms. She has had no vomiting or diarrhea since admission to the emergency department. Discharge instructions and return precautions reviewed with her. Departure Impression Primary Impression: Crohns disease Qualified Codes: K50.919 - Crohn's disease, unspecified, with unspecified complications Additional Impressions: Nausea and vomiting Qualified Codes: G43.A1 - Cyclical vomiting, intractable Abdominal pain Qualified Codes: R10.84 - Generalized abdominal pain Disposition: HOME, SELF-CARE Condition: Improved Departure-Patient Inst. Decision time for Depature: 20:45 Referrals: ROSANGELA ARMAS DO (PCP/Family) Primary Care Physician Patient Instructions: Crohn's Disease (DC), Acute Abdomen (Belly Pain), Adult (DC) Add. Discharge Instructions: Continue your home medication for Crohn's disease. Use the Phenergan suppositories as needed for nausea and vomiting. Use Lomotil as prescribed for diarrhea. Follow-up with Dr. Dr. Armas tomorrow if symptoms are not improving or worsen. Return to the emergency department for new, urgent health care needs. All discharge instructions reviewed with patient and/or family. Voiced understanding. OPHELIA CORTEZ Apr 12, 2019 20:34
[2019-04-12] MEDS ORDERED: RX-DIPHENO./ATROP. 2.5/0.25 MG (LOMOTIL) TAB PPK#4 PO STA (21:08)
[2019-04-12 21:20] VITALS: BP 121/76
--- OUTSIDE RECORDS SUMMARY | 2019-04-12 23:04 | XMS REPORT | Encounter Summary ---
Author Author [facility] Organization [facility] Address Unknown Phone Unavailable Care Team Providers Care Public Works Technician Name Role Phone Barber Nguyen MD Unavailable Naveed Lockhart DO PCP Mychart, Generic Provider Unavailable Unavailable Mary Gomez Unavailable Unavailable Loreta Mcfadden Unavailable Reason for Visit * Reason Comments Medication Refill Encounter Details Care Team Description Date Type Department Moncho Odonnell MD [address] [facility] Ortho/Med Pavilion [address]vl [address] [place] [address] 07/26/2018 Refill [facility] [address] [place] [phone] Social History Date Tobacco Use Types Packs/Day Years Used Former Smoker Cigarettes 0.5 11 Smokeless Tobacco: Former Quit: 06/29/2017 User Drinks/Week oz/Week Comments Alcohol Use 0 Standard drinks or equivalent 0.0 No Sex Assigned at Date Recorded Not on file Industry Job Start Date Occupation Not on file Not on file Not on file Travel End Travel History Travel Start No recent travel history available. documented as of this encounter Plan of Treatment Not on filedocumented as of this encounter Visit Diagnoses Not on filedocumented in this encounter
--- OUTSIDE RECORDS SUMMARY | 2019-04-12 23:04 | XMS REPORT | Clinical Summary ---
Author Author [facility] Organization [facility] Address Unknown Phone Unavailable Care Team Providers Care Cotton Stomper Name Role Phone PCP Unavailable Allergies Active [...] Taken Blood Pressure 122/91 09/10/2017 6:33 PM ART HISTORY PROFESSOR Pulse 91 09/10/2017 6:33 PM ART HISTORY PROFESSOR Temperature 37 C (98.6 F) 09/10/2017 6:33 PM ART HISTORY PROFESSOR Respiratory Rate 16 09/10/2017 6:33 PM ART HISTORY PROFESSOR Oxygen Saturation 98% 09/10/2017 6:33 PM ART HISTORY PROFESSOR Inhaled Oxygen - - Concentration Weight 74.8 kg (165 lb) 09/10/2017 6:33 PM ART HISTORY PROFESSOR Height 160 cm (5' 3") 09/10/2017 6:33 PM ART HISTORY PROFESSOR Body Mass Index 29.23 09/10/2017 6:33 PM ART HISTORY PROFESSOR Plan of Treatment Health Maintenance Due Date Last Done Comments Td # 1978 Cervical Cancer Screening 1999 via Pap Smear Influenza Vaccine (Season 08/25/2019 Ended) Results Not on filefrom Last 3 Months
--- OUTSIDE RECORDS SUMMARY | 2019-04-12 23:04 | XMS REPORT | Encounter Summary ---
Author Author [facility] Organization [facility] Address Unknown Phone Unavailable Care Team Providers Care Sample Puller Name Role Phone Barber Nugyen MD Unavailable Naveed Lockhart DO PCP Mychart, Generic Provider Unavailable Unavailable Mary Gomez Unavailable Unavailable Loreta Mcfadden Unavailable Encounter Details Care Team Description Date Type Department Moncho Odonnell MD [address] Ortho/Med [place] [address] [place] [address] [phone] Crohn's disease, unspecified, with unspecified complications (HCC) 07/20/2017 Hospital [facility] [address] [place] [id number] Social History Date Tobacco Use Types Packs/Day [...] history available. documented as of this encounter Medications at Time of Discharge Start Date End Date Medication Sig Dispensed Refills HYDROcodone/acetaminophen Take 1 Tab by 0 (NORCO; VICODIN) 5-325 mg mouth every 6 tablet hours as needed. LORATADINE (CLARITIN PO) Take by 0 mouth. 07/28/2016 mesalamine (LIALDA) 1.2 Take 4 Tabs 120 Tab 0 gram tablet by mouth daily with breakfast. 04/22/2017 Mesalamine (PENTASA) 500 Take 2 Caps 240 Cap 3 mg cpER by mouth four times daily. 05/12/2017 PENTASA 500 mg cpER TAKE 2 240 Cap 0 CAPSULES BY MOUTH TWICE DAILY 05/19/2016 Sodium,Potassium,&Mag Take 2 354 mL 0 Sulfates 17.5-3.13-1.6 Bottles by gram solrIndications: mouth as Crohn's disease with directed. For complication, unspecified split dose gastrointestinal tract colonoscopy location (HCC), prep. Gastroesophageal reflux disease, esophagitis presence not specified 05/03/2017 07/25/[address](+) TAKE 1 90 Cap 0 (PRILOSEC) 40 mg capsule CAPSULE BY MOUTH DAILY BEFORE BREAKFAST 05/12/2017 07/26/2017 PENTASA 500 mg cpER TAKE 2 240 Cap 0 CAPSULES BY MOUTH TWICE DAILY documented as of this encounter Plan of Treatment Not on filedocumented as of this encounter Procedures Comments Procedure Name Priority Date/Time Associated Diagnosis CBC AND DIFF Routine 07/20/2017 Crohn's disease with 2:39 PM CDT complication, unspecified gastrointestinal tract location COMPREHENSIVE METABOLIC Routine 07/20/2017 Crohn's disease with PANEL 2:39 PM CDT complication, unspecified gastrointestinal tract location documented in this encounter Results * COMPREHENSIVE METABOLIC PANEL (07/20/2017 2:39 PM CDT) Sodium 140 137 - 147 MMOL/L [facility] Potassium 3.7 3.5 - 5.1 MMOL/L [facility] Chloride 104 98 - 110 MMOL/L [facility] Glucose 101 (H) 70 - 100 MG/DL [facility] Blood Urea 8 7 - 25 MG/DL [facility] Nitrogen Creatinine 0.76 0.4 - 1.00 MG/DL [facility] Calcium 9.9 8.5 - 10.6 MG/DL [facility] Total Protein 7.4 6.0 - 8.0 G/DL [facility] Total Bilirubin 0.4 0.3 - 1.2 MG/DL [facility] Albumin 4.2 3.5 - 5.0 G/DL [facility] Alk Phosphatase 87 25 - 110 U/L [facility] AST (SGOT) 15 7 - 40 U/L [facility] CO2 27 21 - 30 MMOL/L [facility] ALT (SGPT) 11 7 - 56 U/L [facility] Anion Gap 9 3 - 12 [facility] eGFR Non >60 >60 mL/min [facility] Comment: [place]ron[place] The eGFR is not validated for use in drug dosing adjustments.Continue to use estimated creatinine clearance per dosing reference text.Please contact the Clinical Pharmacist for questions. eGFR >60 >60 mL/min [facility] Comment: The eGFR is not validated for use in drug dosing adjustments.Continue to use estimated creatinine clearance per dosing reference text.Please contact the Clinical Pharmacist for questions. Specimen Blood Performing Organization Address City/State/Zipcode Phone Number [facility] [address] [place] [address] * CBC AND DIFF (07/20/2017 2:39 PM CDT) White Blood 10.6 4.5 - 11.0 K/UL [facility] Cells RBC 4.53 4.0 - 5.0 M/UL [facility] Hemoglobin 14.0 12.0 - 15.0 GM/DL [facility] Hematocrit 41.4 36 - 45 % [facility] MCV 91.6 80 - 100 FL [facility] MCH 30.9 26 - 34 PG [facility] MCHC 33.7 32.0 - 36.0 G/DL [facility] RDW 13.4 11 - 15 % [facility] Platelet Count 474 (H) 150 - 400 K/UL [facility] MPV 6.9 (L) 7 - 11 FL [facility] Neutrophils 49 41 - 77 % [facility] Lymphocytes 31 24 - 44 % [facility] Monocytes 5 4 - 12 % [facility] Eosinophils 14 (H) 0 - 5 % [facility] Basophils 1 0 - 2 % [facility] Absolute 5.30 1.8 - 7.0 K/UL [facility] Neutrophil Count Absolute Lymph 3.20 1.0 - 4.8 K/UL [facility] Count Absolute 0.60 0 - 0.80 K/UL [facility] Monocyte Count Absolute 1.50 (H) 0 - 0.45 K/UL [facility] Eosinophil Count Absolute 0.10 0 - 0.20 K/UL [facility] Basophil Count Specimen Blood Performing Organization Address City/State/Zipcode Phone Number [facility] [address] [place] [address] documented in this encounter Visit Diagnoses Diagnosis Crohn's disease with complication, unspecified gastrointestinal tract location (HCC) documented in this encounter
--- OUTSIDE RECORDS SUMMARY | 2019-04-12 23:04 | XMS REPORT | Clinical Summary ---
Author Author [facility] Organization [facility] Address Unknown Phone Unavailable Care Team Providers Care Allergy And Immunology Specialist Name Role Phone Barber Nguyen MD Unavailable Naveed Lockhart DO PCP Mychart, Generic Provider Unavailable Unavailable Mary Gomez Unavailable Unavailable Loreta Mcfadden Unavailable Source Comments Some departments are not documenting in the electronic medical record. If you d o not see the information that you expected, contact Release of Information in [facility] [employer] Information Management department at [phone] for further assistan ce in locating additional records.[facility] Allergies Comments Active Allergy Reactions Severity [...] Ready to Quit: No; Counseling Given: Yes Drinks/Week oz/Week Comments Alcohol Use 0 Standard drinks or equivalent 0.0 No Sex Assigned at Date Recorded Not on file Industry Job Start Date Occupation Not on file Not on file Not on file Travel End Travel History Travel Start No recent travel history available. Last Filed Vital Signs Reading Time Taken Comments Vital Sign 101/81 07/20/2017 1:31 PM CDT Blood Pressure 75 07/20/2017 1:31 PM CDT Pulse 37.1 C (98.7 F) 07/20/2017 1:31 PM CDT Temperature 18 07/20/2017 1:31 PM CDT Respiratory Rate 99% 05/21/2016 8:39 AM CDT Oxygen Saturation - - Inhaled Oxygen Concentration 77.1 kg (170 lb) 07/20/2017 1:31 PM CDT Weight 160 cm (5' 2.99") 07/20/2017 1:31 PM CDT Height 30.12 07/20/2017 1:31 PM CDT Body Mass Index Plan of Treatment Health Maintenance Due Date Last Done Comments PHYSICAL (COMPREHENSIVE) 1985 EXAM HIV SCREENING 1993 DTAP/TDAP VACCINES (1 - 1996 Tdap) CERVICAL CANCER SCREENING 2008 BREAST CANCER SCREENING 2018 INFLUENZA VACCINE 07/25/2019 09/06/2006 Results Not on filefrom Last 3 Months Insurance Type Payer Benefit Subscriber ID Effective Phone Address Plan / Dates Group Medicaid UHC [place]ICAID [place] UHC xxxxxxxxxxx 2012-P [employer] [place] [address] Advance Directives Patient Child And Family Services Specialist Explanation Type Date Recorded Advance 05/21/2016 6:22 AM Directive/DPOA
--- OUTSIDE RECORDS SUMMARY | 2019-04-12 23:04 | XMS REPORT | Encounter Summary ---
Author Author [facility] Organization [facility] Address Unknown Phone Unavailable Care Team Providers Care Channel Director Name Role Phone Barber Nguyen MD Unavailable Naveed Lockhart DO PCP Mychart, Generic Provider Unavailable Unavailable Mary Gomez Unavailable Unavailable Loreta Mcfadden Unavailable Reason for Visit * Reason Comments Medication Refill Encounter Details Care Team Description Date Type Department Loreta Mcfadden ARNP [address] [facility] Ortho/Med Pavilion [address]vl [address] [place] [address] 07/25/2017 Refill [facility] - Internal Medicine [address] [facility] [address] [address] Social History Date Tobacco Use Types Packs/Day [...] history available. documented as of this encounter Miscellaneous Notes * Telephone Encounter - Sarai Moya LPN - 07/26/2017 8:12 AM CDT Refill request received for Omeprazole 40mg Last OV 07/20/17 w/ Dr Odonnell Last fill 05/03/17 # 90 w/ 0 refills Routing to Loreta Mcfadden for approval/refusal documented in this encounter Plan of Treatment Not on filedocumented as of this encounter Visit Diagnoses Not on filedocumented in this encounter
--- OUTSIDE RECORDS SUMMARY | 2019-04-12 23:04 | XMS REPORT | Encounter Summary ---
Author Author [facility] Organization [facility] Address Unknown Phone Unavailable Care Team Providers Care Sonogram Technician Name Role Phone Barber Nguyen MD Unavailable Naveed Lockhart DO PCP Mychart, Generic Provider Unavailable Unavailable Mary Gomez Unavailable Unavailable Loreta Mcfadden Unavailable Reason for Visit * Reason Comments Medication Refill Encounter Details Care Team Description Date Type Department Moncho Odonnell MD [address] [facility] Ortho/Med Pavilion Lvl [address] [place] [address] 07/26/2017 Refill [facility] [address] [place] [phone] Social History Date Tobacco Use Types Packs/Day [...] encounter Miscellaneous Notes * Telephone Encounter - Leigh Nieves - 07/26/2017 11:46 AM CDT Refill request received for Pentasa 500mh Last OV 07/20/2017 Last fill 06/18/2017 Last labs 07/20/[address] Odonnell for approval/refusal CBC w/Diff Lab Results Component Value Date/Time WBC 10.6 07/20/2017 02:39 PM RBC 4.53 07/20/2017 02:39 PM HGB 14.0 07/20/2017 02:39 PM HCT 41.4 07/20/2017 02:39 PM MCV 91.6 07/20/2017 02:39 PM MCH 30.9 07/20/2017 02:39 PM MCHC 33.7 07/20/2017 02:39 PM RDW 13.4 07/20/2017 02:39 PM PLTCT 474 (H) 07/20/2017 02:39 PM MPV 6.9 (L) 07/20/2017 02:39 PM Lab Results Component Value Date/Time NEUT 49 07/20/2017 02:39 PM ANC 5.30 07/20/2017 02:39 PM LYMA 31 07/20/2017 02:39 PM ALC 3.20 07/20/2017 02:39 PM VIKTORIYA 5 07/20/2017 02:39 PM AMC 0.60 07/20/2017 02:39 PM EOSA 14 (H) 07/20/2017 02:39 PM AEC 1.50 (H) 07/20/2017 02:39 PM BASA 1 07/20/2017 02:39 PM ABC 0.10 07/20/2017 02:39 PM Comprehensive Metabolic Profile Lab Results Component Value Date/Time NA 140 07/20/2017 02:39 PM K 3.7 07/20/2017 02:39 PM CL 104 07/20/2017 02:39 PM CO2 27 07/20/2017 02:39 PM GAP 9 07/20/2017 02:39 PM BUN 8 07/20/2017 02:39 PM CR 0.76 07/20/2017 02:39 PM GLU 101 (H) 07/20/2017 02:39 PM GLU 79 08/07/2004 03:03 AM Lab Results Component Value Date/Time CA 9.9 07/20/2017 02:39 PM ALBUMIN 4.2 07/20/2017 02:39 PM TOTPROT 7.4 07/20/2017 02:39 PM ALKPHOS 87 07/20/2017 02:39 PM AST 15 07/20/2017 02:39 PM ALT 11 07/20/2017 02:39 PM TOTBILI 0.4 07/20/2017 02:39 PM GFR >60 07/20/2017 02:39 PM GFRAA >60 07/20/2017 02:39 PM documented in this encounter Plan of Treatment Not on filedocumented as of this encounter Visit Diagnoses Not on filedocumented in this encounter
--- OUTSIDE RECORDS SUMMARY | 2019-04-12 23:04 | XMS REPORT | Encounter Summary ---
Author Author [facility] Organization [facility] Address Unknown Phone Unavailable Care Team Providers Care Director Operations Broadcast Name Role Phone Barber Nguyen MD Unavailable Naveed Lockhart DO PCP Mychart, Generic Provider Unavailable Unavailable Mary Gomez Unavailable Unavailable Loreta Mcfadden Unavailable Reason for Visit * Reason Comments Medication Refill Encounter Details Care Team Description Date Type Department Loreta Mcfadden ARNP [address] [facility] Ortho/Med [place] [address] [place] [address] 02/03/2018 Refill [facility] [address] [place] [id number] Social History Date Tobacco Use Types Packs/Day [...] Telephone Encounter - Sarai Moya LPN - 02/04/2018 7:59 AM CDT Refill request received for Omeprazole 40mg Last OV 07/20/17 Pt canceled f/u OV 11/16/17 Last fill 11/01/17 # 90 w/ 0 refills Message sent via [facility] to f/u labs due for mesalamine monitoring and if pt has transferred care as she had previously stated she may do. Routing to Dr. Odonnell for approval/refusal documented in this encounter Plan of Treatment Not on filedocumented as of this encounter Visit Diagnoses Not on filedocumented in this encounter
--- OUTSIDE RECORDS SUMMARY | 2019-04-12 23:04 | XMS REPORT | Encounter Summary ---
Author Author [facility] Organization [facility] Address Unknown Phone Unavailable Care Team Providers Care Train Gateman Name Role Phone Barber Nguyen MD Unavailable Naveed Lockhart DO PCP Mychart, Generic Provider Unavailable Unavailable Mary Gomez Unavailable Unavailable Loreta Mcfadden Unavailable Encounter Details Care Team Description Date Type Department Moncho Odonnell MD 1999 [facility] Ortho/Med [place] [address]vl [address] [place] [address] Medication monitoring encounter (Primary Dx) 08/05/2017 Orders Only [facility] [address] [place] [id number] Social History Date Tobacco Use Types Packs/Day [...] as of this encounter Plan of Treatment Order Schedule Name Type Priority Associated Diagnoses Expected: 01/03/2018 (Approximate), Expires: 08/05/2018 COMPREHENSIVE METABOLIC Lab Routine Medication monitoring PANEL encounter documented as of this encounter Visit Diagnoses Diagnosis Medication monitoring encounter - Primary Encounter for therapeutic drug monitoring documented in this encounter
--- OUTSIDE RECORDS SUMMARY | 2019-04-12 23:04 | XMS REPORT | Encounter Summary ---
Author Author [facility] Organization [facility] Address Unknown Phone Unavailable Care Team Providers Care Hris Administrator Name Role Phone Barber Nguyen MD Unavailable Naveed Lockhart DO PCP Mychart, Generic Provider Unavailable Unavailable Mary Gomez Unavailable Unavailable Loreta Mcfadden Unavailable Reason for Visit * Reason Comments Crohn's Disease Encounter Details Care Team Description Date Type Department Moncho Odonnell MD [address] [facility] Ortho/Med Pavilion Lvl [address]B [place] [address] Crohn's disease with complication, unspecified gastrointestinal tract location (Primary Dx); Noncompliance 07/20/2017 Office Visit [facility] [address] [place] [address] Social History Date Tobacco Use Types Packs/Day [...] history available. documented as of this encounter Last Filed Vital Signs Reading Time Taken Comments Vital Sign 101/81 07/20/2017 1:31 PM CDT Blood Pressure 75 07/20/2017 1:31 PM CDT Pulse 37.1 C (98.7 F) 07/20/2017 1:31 PM CDT Temperature 18 07/20/2017 1:31 PM CDT Respiratory Rate - - Oxygen Saturation - - Inhaled Oxygen Concentration 77.1 kg (170 lb) 07/20/2017 1:31 PM CDT Weight 160 cm (5' 2.99") 07/20/2017 1:31 PM CDT Height 30.12 07/20/2017 1:31 PM CDT Body Mass Index documented in this encounter Patient Instructions * Patient Instructions* Sri Cleveland RN - 07/20/2017 1:00 PM CDT 1) Please complete labs 2) Requesting records from Dr. Wen. Please call for any questions. ANTWAN Fierro [phone]. documented in this encounter Progress Notes * Moncho Odonnell MD - 07/20/2017 1:00 PM CDT Date of Service: 07/20/2017 Subjective: Mady Yoon is a 37 y.o. female. History of Present Illness Mady presents today in follow-up. Apparently she recently underwent an intes tinal resection and [place] are consulted by Dr. John. Since that time donya fan has been feeling very well. Denies any diarrhea. No blood in her stool. No nighttime diarrhea. Her weight has been stable. She been tolerating p.o. No s ignificant abdominal pain. She [facility] stomach [facility]. She is considering establishing care with a set up inspector that is located right next to Dr. Carrasquillo's [facility] e, and she will let us know if she she intends this move forward. She continues to take 2 mesalamine tablets once a day. Currently she is taking 1 g of Pentasa daily. She has given up smoking. Review of Systems Gastrointestinal: Positive for abdominal pain and diarrhea. All other systems reviewed and are negative. Objective: HYDROcodone/acetaminophen (NORCO; VICODIN) 5-325 mg tablet Take 1 Tab by keyana th every 6 hours as needed. LORATADINE (CLARITIN PO) Take by mouth. mesalamine (LIALDA) 1.2 gram tablet Take 4 Tabs by mouth daily with breakfas t. Mesalamine (PENTASA) 500 mg cpER Take 2 Caps by mouth four times daily. omeprazole DR(+) (PRILOSEC) 40 mg capsule TAKE 1 CAPSULE BY MOUTH DAILY BEFO RE BREAKFAST PENTASA 500 mg cpER TAKE 2 CAPSULES BY MOUTH TWICE DAILY PENTASA 500 mg cpER TAKE 2 CAPSULES BY MOUTH TWICE DAILY Sodium,Potassium,&Mag Sulfates 17.5-3.13-1.6 gram solr Take 2 Bottles by mouth as directed. For split dose colonoscopy prep. Vitals: 07/20/17 1331 BP: 101/81 Pulse: 75 Resp: 18 Temp: 37.1 C (98.7 F) TempSrc: Oral Weight: 77.1 kg (170 lb) Height: 160 cm (62.99") Body mass index is 30.12 kg/(m^2). Physical Exam Constitutional: She appears well-developed and well-nourished. No distress. Abdominal: Soft. Bowel sounds are normal. She exhibits no distension. Open surgical wound appears to be healing well. No purulent d/c. Wound is packe d. Skin: Skin is warm and dry. No rash noted. She is not diaphoretic. No erythema. No pallor. Psychiatric: She has a normal mood and affect. Her behavior is normal. Judgment and thought content normal. Vitals reviewed. Assessment and Plan: This is a 37-year-old female with history of active ileocolonic Crohn's disease. She has a prior history of ileocecal resection in the past. She underwent a i ntestinal resection in June 2017 in the [facility]. She has a long history of medical noncompliance with poor follow-up, and this has hinde red her ability to prescribe appropriate chronic immune immunosuppressive therap y in this patient with aggressive Crohn's disease. She intends to follow-up wit h her general surgeon in the [facility], and is considering esta blishing with a set up inspector at an office close to his continuity of care. I recommended we will move forward with the followin. We will check a CBC and CMP as she has been on chronic mesalamine therapy. A goal of 2.4 g/day of oral mesalamine per day. 2. I do not think she is a candidate for chronic immunosuppressive therapy give n her long history of noncompliance in the past. She did show up to her clinic visit today, however was over 20 minutes late. I continue to be concerned about the ability to closely monitor her on potentially toxic therapy. I think the b est course of action at this point will be to repeat a colonoscopy in [place] 6 months after resection and look for evidence of active recurrent inflammat ory bowel disease. In the context of her smoking cessation, I am hopeful that a n aggressive surveillance protocol may offer the safest approach for long-term m anagement of her disease, and if she demonstrates future compliance can consider escalation of therapy if recurrence is noted. 3. I like her to follow-up in 4 months unless she establishes with a local gregory roenterologist. She should contact her office to notify us, and I have explaine d this to her, so we can transfer her records for the purposes of continuity of care. documented in this encounter Plan of Treatment Not on filedocumented as of this encounter Results * COMPREHENSIVE METABOLIC PANEL [...] >60 >60 mL/min [facility] Comment: [place] The eGFR is not validated for use in drug dosing adjustments.Continue to use estimated creatinine clearance per dosing reference text.Please contact the Clinical Pharmacist for questions. eGFR >60 >60 mL/min [facility] [place] Comment: The eGFR is not validated for use in drug dosing adjustments.Continue to use estimated creatinine clearance per dosing reference text.Please contact the Clinical Pharmacist for questions. Specimen Blood Performing Organization Address City/[facility]/Zipcode Phone Number [facility] [address] [place] [address] * CBC AND DIFF (07/20/2017 2:39 PM [...] Basophil Count Specimen Blood Performing Organization Address City/[facility]/Zipcode Phone Number [facility] [address] [place] [address] documented in this encounter Visit Diagnoses Diagnosis Crohn's disease with complication, unspecified gastrointestinal tract location (HCC) - Primary Noncompliance Personal history of noncompliance with medical treatment, presenting hazards to health documented in this encounter
--- OUTSIDE RECORDS SUMMARY | 2019-04-12 23:04 | XMS REPORT | Encounter Summary ---
Author Author [facility] Organization [facility] Address Unknown Phone Unavailable Care Team Providers Care Slabber Light Name Role Phone Barber Nguyen MD Unavailable Naveed Lockhart DO PCP Mychart, Generic Provider Unavailable Unavailable Mary Gomez Unavailable Unavailable Loreta Mcfadden Unavailable Encounter Details Care Team Description Date Type Department Moncho Odonnell MD 1999 [facility] Ortho/Med Pavilion Lvl [address] [place] [address] 08/05/2017 Lab Only [facility] [address] [place] [address] Social History Date Tobacco Use [...]
--- OUTSIDE RECORDS SUMMARY | 2019-04-12 23:04 | XMS REPORT | Encounter Summary ---
Author Author [facility] Organization [facility] Address Unknown Phone Unavailable Care Team Providers Care Policy Issue Clerk Name Role Phone Barber Nguyen MD Unavailable Naveed Lockhart DO PCP Mychart, Generic Provider Unavailable Unavailable Mary Gomez Unavailable Unavailable Loreta Mcfadden Unavailable Reason for Visit * Reason Comments Medication Refill Encounter Details Care Team Description Date Type Department Loreta Mcfadden ARNP [address] Ortho/Med [place] [address] [place] [address] 11/01/2017 Refill [facility] Physicians - Internal Medicine [address] MED OFFICE BLDG 2[place] [address] Social History Date Tobacco Use [...]
--- OUTSIDE RECORDS SUMMARY | 2019-04-12 23:04 | XMS REPORT | Encounter Summary ---
Author Author [facility] Organization [facility] Address Unknown Phone Unavailable Care Team Providers Care Maintenance Groundman Name Role Phone Barber Nguyen MD Unavailable Naveed Lockhart DO PCP Mychart, Generic Provider Unavailable Unavailable Mary Gomez Unavailable Unavailable Loreta Mcfadden Unavailable Reason for Visit * Reason Comments Medication Refill Encounter Details Care Team Description Date Type Department Moncho Odonnell MD 1999 [facility] Ortho/Med Pavilion [address]vl [address] [place] [address] 05/03/2018 Refill [facility] [address] [place] [phone] Social History Date Tobacco Use Types Packs/Day [...]
--- OUTSIDE RECORDS SUMMARY | 2019-04-12 23:05 | XMS REPORT | Encounter Summary ---
Author Author [facility] Organization [facility] Address Unknown Phone Unavailable Care Team Providers Care Expense Analyst Name Role Phone Barber Ngueyn MD Unavailable Naveed Lockhart DO PCP Mychart, Generic Provider Unavailable Unavailable Mary Gomez Unavailable Unavailable Loreta Mcfadden Unavailable Reason for Visit * Reason Comments Follow-up Phone Call Encounter Details Care Team Description Date Type Department Moncho Odonnell MD [address] [facility]Med [address] [place] [address] Follow-up Phone Call 03/12/2017 Telephone [facility] Physicians - Internal Medicine [address] [facility] [address]LDG [place] [address] Social History Date Tobacco Use Types Packs/Day Years Used Current Every Day Smoker Cigarettes 0.5 11 Smokeless Tobacco: Former Quit: 06/29/2016 User Drinks/Week oz/Week Comments Alcohol Use 0 Standard drinks or equivalent 0.0 No Sex Assigned at Date Recorded Not on file Industry Job Start Date Occupation Not on file Not on file Not on file Travel End Travel History Travel Start No recent travel history available. documented as of this encounter Miscellaneous Notes * Telephone Encounter - Parris Ramirez RN - 03/12/2017 12:10 PM CDT Patient's voice message returned after refill for Pentasa was declined due needi ng updated blood work for medication monitoring. Patient had not read her [employer] rt message from our office regarding this plan yesterday. Does agree to have BM P drawn today and aware most likely will not get results until Wednesday. Patient has questions regarding management of her Crohn's and asking about just getting her colon out by surgery. Patient did confirm getting Sarai's [employer] Message b ack in 11/2016 but without further contact from patient. Therefore, offered for patient to be seen in the clinic setting to further discu ss patient's request and states reason why could not get MR enterography as osvaldo mmended was due to would of made her sick and unable to tolerate this procedure. Patient aware she had cancelled follow-up in our office and now agrees to be s een by Dr. Odonnell only as politely declines being seen by Loreta Mcfadden NP due to patient states "if Loreta would of looked at her chart, would of known not able to have MR enterography" Did provide patient support in that RADIO ENGINEERING TEACHER collaboration with Dr. Odonnell had taken place but patient politely declines RADIO ENGINEERING TEACHER appointment at this time. Will have scheduling reach out to patient for follow-up appointment with Dr. Odonnell. documented in this encounter Plan of Treatment Not on filedocumented as of this encounter Visit Diagnoses Not on filedocumented in this encounter
--- OUTSIDE RECORDS SUMMARY | 2019-04-12 23:05 | XMS REPORT | Encounter Summary ---
Author Author [facility] Organization [facility] Address Unknown Phone Unavailable Care Team Providers Care Molder Punch Name Role Phone Barber Nguyen MD Unavailable Naveed Lockhart DO PCP Mychart, Generic Provider Unavailable Unavailable Mary Gomez Unavailable Unavailable Loreta Mcfadden Unavailable Reason for Visit * Reason Comments Medication Refill Encounter Details Care Team Description Date Type Department Loreta Mcfadden ARNP [address] Ortho/Med Pavilion [address]vl [address] [place] [address] 05/03/2017 Refill [facility] Physicians - Internal Medicine [address] MED OFFICE BLDG 2[place] [address] Social History Date Tobacco Use [...]
--- OUTSIDE RECORDS SUMMARY | 2019-04-12 23:05 | XMS REPORT | Encounter Summary ---
Author Author [facility] Organization [facility] Address Unknown Phone Unavailable Care Team Providers Care Promotions Executive Name Role Phone Barber Nguyen MD Unavailable Naveed Lockhart DO PCP Mychart, Generic Provider Unavailable Unavailable Mary Gomez Unavailable Unavailable Loreta Mcfadden Unavailable Reason for Visit * Reason Comments Erroneous encounter-disregard Encounter Details Care Team Description Date Type Department Moncho Odonnell MD [address] Ortho/Med [address] [place] [address] Erroneous encounter-disregard 12/11/2016 Telephone [facility] Physicians - Internal Medicine [address] MED OFFICE BLDG 2ND [place] [address] Social History Date Tobacco Use [...]
--- OUTSIDE RECORDS SUMMARY | 2019-04-12 23:05 | XMS REPORT | Encounter Summary ---
Author Author [facility] Organization [facility] Address Unknown Phone Unavailable Care Team Providers Care Electronic Assembler Name Role Phone Barber Nguyen MD Unavailable Naveed Lockhart DO PCP Mychart, Generic Provider Unavailable Unavailable Mary Gomez Unavailable Unavailable Loreta Mcfadden Unavailable Reason for Visit * Reason Comments General Question Encounter Details Care Team Description Date Type Department Loreta Mcfadden ARNP [address] Ortho/Med Pav[place] [address] [place] [address] General Question 12/10/2016 Telephone [facility] Physicians - Internal Medicine [address] [facility] BLDG 2ND [place] [address] Social History Date Tobacco Use [...] Telephone Encounter - Sarai Moya LPN - 12/10/2016 2:02 PM FIELD MARKETING ASSOCIATE Received [employer] message below. Response to pt also shown below. Routing to Dr. Odonnell and Loreta Mcfadden to inform D MARKETING ASSOCIATE * Telephone Encounter - Sarai Moya LPN - 12/10/2016 2:01 PM FIELD MARKETING ASSOCIATE Non-Urgent Medical Question From Mady Yoon To LoretaSTEVIE Moralez Sent 12/09/2016 5:50 PM I am wondering why I have never heard anything from you guys when I wasn't ab le to perform the test you wanted me to do in July? I even called left a mess age the day of appointment. And here it is November and I'm still waiting on a c all back. I know you guys got reports from the hospital here of me being in donna gency visits, but it seems that you guys aren't complaint but you want me to be. So once again I have been trying and you guys fail at what is best for your pat ient. Thanks alot From Sarai Moya LPN To Mady Yoon Sent and Delivered 12/10/2016 10:56 AM Last Read in [facility] 12/10/2016 1:08 PM by Mady Yoon I'm sorry for any miscommunication Mady. Are you referring to the MR Enterography? I see that is was canceled the day of the procedure and they put in the cancellation notes that you were unable to dri nk the contrast. I'm sorry but I don't have any documentation that our office wa s contacted about that. I apologize if you had called and left a message I'm not sure we got it. Are you wanting to reschedule? If so we would have to discuss a possible alternative if you are not able to tolerate the oral contrast for the imaging. We have not received any documentation regarding ER visits or hospitalizations s joselito we last saw you on 07/03/16. Did you request they send the reports to our off ice? Otherwise we the ER departments don't typically notify us of mutual patient s being seen. Besides a couple of refill requests I don't see any notes since your last office visit. You were scheduled for an office visit with Dr. Odonnell on 07/28/16 but th at was canceled and I do not see any future appointments listed. If you are still having symptoms we will need to discuss what has been going on since we last saw you and come up with a plan of care. Please call us at [phone] (Parris with Dr. Odonnell) or [phone] ([facility]) or feel free to respond with [employer] messaging. D MARKETING ASSOCIATE documented in this encounter Plan of Treatment Not on filedocumented as of this encounter Visit Diagnoses Not on filedocumented in this encounter
--- OUTSIDE RECORDS SUMMARY | 2019-04-12 23:05 | XMS REPORT | Encounter Summary ---
Author Author [facility] Organization [facility] Address Unknown Phone Unavailable Care Team Providers Care Automatic Packer Operator Name Role Phone Barber Nguyen MD Unavailable Naveed Lockhart DO PCP Mychart, Generic Provider Unavailable Unavailable Mary Gomez Unavailable Unavailable Loreta Mcfadden Unavailable Reason for Visit * Reason Comments Medication Refill Encounter Details Care Team Description Date Type Department Moncho Odonnell MD [address] [facility] Ortho/Med Pavilion Lvl [address] [place] [address] 07/17/2017 Refill [facility] Physicians - Internal Medicine [address] [facility] MED OFFICE BLDG 2[place] [address] Social History Date Tobacco Use [...] encounter Miscellaneous Notes * Telephone Encounter - Sri Cleveland RN - 07/19/2017 9:04 AM CDT Labs completed at [facility] 02/2017. Vit D com pelted 04/2016 noted. documented in this encounter Plan of Treatment Not on filedocumented as of this encounter Visit Diagnoses Not on filedocumented in this encounter
--- OUTSIDE RECORDS SUMMARY | 2019-04-12 23:05 | XMS REPORT | Encounter Summary ---
Author Author [facility] Organization [facility] Address Unknown Phone Unavailable Care Team Providers Care Supervisor Cd Area Name Role Phone Barber Nguyen MD Unavailable Naveed Lockhart DO PCP Mychart, Generic Provider Unavailable Unavailable Mary Gomez Unavailable Unavailable Loreta Mcfadden Unavailable Reason for Visit * Reason Comments Abdominal pain Encounter Details Care Team Description Date Type Department Lalo Carrillo MD [address] [address] Abdominal pain 03/19/2017 Telephone [facility] Physicians - Internal Medicine [address] [facility] MED OFFICE BLDG 2[place] [address] Social History Date Tobacco Use [...] encounter Miscellaneous Notes * Telephone Encounter - Lalo Carrillo - 03/19/2017 10:13 PM CDT Patient called reporting severe abdominal pain, decreased stool frequency and na usea. Chart reviewed notable for history of Crohn's disease and noncompliance r elated to her Crohn's disease. Patient reports being evaluated at outside ED an d diagnosed with UTI, for which she was given antibiotics. Explained to the patient limitations of a fall and evaluation. Provided paramet ers for presenting to the emergency department (persistent or worsening abdomina l pain, intractable vomiting, fevers/chills despite antibiotics, new symptoms, e tc...). Patient unsure if she will seek second opinion, or if she will come to [facility] at this time. documented in this encounter Plan of Treatment Not on filedocumented as of this encounter Visit Diagnoses Not on filedocumented in this encounter
--- OUTSIDE RECORDS SUMMARY | 2019-04-12 23:05 | XMS REPORT | Encounter Summary ---
Author Author [facility] Organization [facility] Address Unknown Phone Unavailable Care Team Providers Care Casino Cage Cashier Name Role Phone Barber Nguyen MD Unavailable Naveed Lockhart DO PCP Mychart, Generic Provider Unavailable Unavailable Mary Gomez Unavailable Unavailable Loreta Mcfadden Unavailable Reason for Visit * Reason Comments Medication Refill Encounter Details Care Team Description Date Type Department Barber Nguyen MD [address] [facility] Ortho/Med Pavilion Lvl [address] [place] [address] Medication monitoring encounter (Primary Dx) 03/10/2017 Refill [facility] Physicians - Internal Medicine [address] [facility] MED OFFICE BLDG 2[place] [address] Social History Date Tobacco Use [...] Telephone Encounter - Sarai Moya LPN - 03/11/2017 1:15 PM CDT Orders placed for Chem-7. Pt notified via [employer]. * Telephone Encounter - Moncho Odonnell MD - 03/11/2017 12:37 PM CDT Please have Chem-7 performed now, and I cannot reRx until her kidney function is checked. * Telephone Encounter - Sarai Moya LPN - 03/11/2017 11:12 AM CDT Refill request received for Pentasa. Pt last OV 07/03/16 w/ Loreta Mcfadden METERMAN Last filled 10/12/16 # 240 w/ 0 refills Pt has not communicated with our office since [employer] message on 12/09/16. No upcoming appointments scheduled. Last OV w/ Dr Odonnell canceled on 07/28/16. Routing to Dr Odonnell for approval/refusal documented in this encounter Plan of Treatment Not on filedocumented as of this encounter Visit Diagnoses Diagnosis Medication monitoring encounter - Primary Encounter for therapeutic drug monitoring documented in this encounter
--- OUTSIDE RECORDS SUMMARY | 2019-04-12 23:05 | XMS REPORT | Encounter Summary ---
Author Author [facility] Organization [facility] Address Unknown Phone Unavailable Care Team Providers Care Right Of Way Agent Name Role Phone Barber Nguyen MD Unavailable Naveed Lockhart DO PCP Mychart, Generic Provider Unavailable Unavailable Mary Gomez Unavailable Unavailable Loreta Mcfadden Unavailable Reason for Visit * Reason Comments Medication Refill Encounter Details Care Team Description Date Type Department Moncho Odonnell MD [address] [facility] Ortho/Med Pavilion Lvl 2B [place] [address] 04/21/2017 Refill [facility] Physicians - Internal Medicine [address] [facility] MED OFFICE BLDG 2ND [place] [address] Social History Date Tobacco Use [...] Miscellaneous Notes * Telephone Encounter - Sri Clevealnd RN - 04/21/2017 2:03 PM CDT SHALONDA 02/2017 and scheduled in 06/2017. Routing to Dr. Odonnell for approval. documented in this encounter Plan of Treatment Not on filedocumented as of this encounter Visit Diagnoses Not on filedocumented in this encounter
--- OUTSIDE RECORDS SUMMARY | 2019-04-12 23:05 | XMS REPORT | Encounter Summary ---
Author Author [facility] Organization [facility] Address Unknown Phone Unavailable Care Team Providers Care Computing Architect Name Role Phone Barber Nguyne MD Unavailable Naveed Lockhart DO PCP Mychart, Generic Provider Unavailable Unavailable Mary Gomez Unavailable Unavailable Loreta Mcfadden Unavailable Reason for Visit * Reason Comments Crohn's Disease Encounter Details Care Team Description Date Type Department Moncho Odonnell MD [address] [facility] Ortho/Med Pavilion Lvl 2B [place] [address] Crohn's disease with complication, unspecified gastrointestinal tract location (HCC) (Primary Dx) 03/16/2017 Office Visit [facility] Physicians - Internal Medicine [address] [facility] MED OFFICE BLDG 2ND [place] [address] Social History Date Tobacco Use [...] Signs Reading Time Taken Comments Vital Sign 133/100 03/16/2017 1:33 PM CDT Blood Pressure 92 03/16/2017 1:33 PM CDT Pulse 37.1 C (98.8 F) 03/16/2017 1:33 PM CDT Temperature 16 03/16/2017 1:33 PM CDT Respiratory Rate - - Oxygen Saturation - - Inhaled Oxygen Concentration 79.5 kg (175 lb 3.2 oz) 03/16/2017 1:33 PM CDT Weight 160 cm (5' 3") 03/16/2017 1:33 PM CDT Height 31.04 03/16/2017 1:33 PM CDT Body Mass Index documented in this encounter Patient Instructions * Patient Instructions* Grace Holman RN - 03/16/2017 2:04 PM CDT Please go to the lab today after your office visit for blood work. Dr. Odonnell would like to see you back in clinic for a follow up in 4 months. If you have any questions or concerns related to your care please contact ANTWAN Fierro at #[phone]. If you need to schedule or reschedule an office visit appo intment the number to call is #[phone]. If you have a scheduling question a bout a procedure at the [facility] or the [facility] please call #; or for a procedure at [facility] please call #[phone]. For any radiology procedure scheduling please call #[phone]. documented in this encounter Progress Notes * Moncho Odonnell MD - 03/16/2017 1:35 PM CDT Date of Service: 03/16/2017 Subjective: Mady Yoon is a 36 y.o. female. History of Present Illness Patient presents today with complain of nearly chronic hypogastric abdominal melissa n. Reports pain in btw rectum and vagina. It is sharp. Often has to reposition to have a BM. Stopped smoking then recently restarted. Having 6-8 BMs per day off of all mesalmine. Does report nighttime diarrhea. Weight is stable. NO drew sea or vomiting. Review of Systems Constitutional: Positive for chills, diaphoresis, activity change, appetite herrera ge and fatigue. Gastrointestinal: Positive for nausea, abdominal pain, diarrhea, blood in stool and rectal pain. Genitourinary: Positive for vaginal pain. Neurological: Positive for dizziness. Psychiatric/Behavioral: Positive for sleep disturbance. All other systems reviewed and are negative. Objective: budesonide (ENTOCORT EC) 3 mg capsule Take 1 Cap by mouth as directed. 3 tab s daily x 8 weeks, 2 tabs daily x 1 week, 1 tab daily x 1 week then stop cholecalciferol(+) (Vitamin D3) 50,000 units capsule Take 1 Cap by mouth javier ry 7 days. 8 weeks,then OTC Vit D3 1000units by mouth daily thereafter. Check l ab in 12 weeks. HYDROcodone/acetaminophen (NORCO; VICODIN) 5-325 mg tablet Take 1 Tab by keyana th every 6 hours as needed. LORATADINE (CLARITIN PO) Take by mouth. mesalamine (LIALDA) 1.2 gram tablet Take 4 Tabs by mouth daily with breakfas t. omeprazole DR(+) (PRILOSEC) 40 mg capsule TAKE 1 CAPSULE BY MOUTH DAILY BEFO RE BREAKFAST PENTASA 500 mg cpER TAKE 2 CAPSULES BY MOUTH TWICE DAILY Sodium,Potassium,&Mag Sulfates 17.5-3.13-1.6 gram solr Take 2 Bottles by mouth as directed. For split dose colonoscopy prep. Filed Vitals: 03/16/17 1333 BP: 133/100 Pulse: 92 Temp: 37.1 C (98.8 F) TempSrc: Oral Resp: 16 Height: 160 cm (63") Weight: 79.47 kg (175 lb 3.2 oz) Body mass index is 31.04 kg/(m^2). Physical Exam Constitutional: She is oriented to person, place, and time. She appears well-dev eloped and well-nourished. No distress. HENT: Head: Normocephalic. Right Ear: External ear normal. Left Ear: External ear normal. Nose: Nose normal. Mouth/Throat: Oropharynx is clear and moist. No oropharyngeal exudate. Eyes: Conjunctivae and EOM are normal. Pupils are equal, round, and reactive to light. Right eye exhibits no discharge. Left eye exhibits no discharge. No scler al icterus. Neck: Normal range of motion. Neck supple. Cardiovascular: Normal rate, regular rhythm, normal heart sounds and intact dist al pulses. Exam reveals no gallop and no friction rub. No murmur heard. Pulmonary/Chest: Effort normal and breath sounds normal. No respiratory distress . She has no wheezes. She has no rales. She exhibits no tenderness. Abdominal: Soft. Bowel sounds are normal. She exhibits no distension and no mass . There is tenderness (in hypogastric region ad RLQ. NO rebound no mass.). Ther e is no rebound and no guarding. Musculoskeletal: She exhibits no edema or tenderness. Neurological: She is alert and oriented to person, place, and time. No cranial n erve deficit. Coordination normal. Skin: Skin is warm and dry. No rash noted. She is not diaphoretic. No erythema. No pallor. Multiple tattoos noted Psychiatric: She has a normal mood and affect. Her behavior is normal. Judgment and thought content normal. Vitals reviewed. Assessment and Plan: 37 y/o female with h/o active ileocolonic Crohn's disease s/p ileal cecal resect ion. She had been treated with infliximab in the past but discontinued due to ea se of being able to get infusions and side effects of the medication. She has be en chronically noncompliant and this has affected our ability to treat her effec tively. In addition transportation has been an issue as she lives in [facility]. H/O GERD. H/O Vitamin D deficiency. I have recommended and will move forward with the followin)I do not believe she is an ideal candidate for either biologic or immunomodula tor therapy at this time due to her very poor compliance. This has been an extre me barrier to effectively treating her. 2)I have given her a two month supply of samples of Lialda, she should take 4 ca ps PO q day 3)Will need to monitor renal function periodically on this medication. Will giacomo ck CBC and CMP at this time. 4)Will recheck Vitamin D at next appointment 5)If she can prove compliance with labwork and clinic f/u, we can try to find a comanaging physician in the [place] area to be able to consider biologic therapy. 4)RTC in 4-6 months documented in this encounter Plan of Treatment Not on filedocumented as of this encounter Results * CBC (03/16/2017 2:31 PM CDT) White Blood 10.8 4.5 - 11.0 K/UL [facility] Cells RBC 4.72 4.0 - 5.0 M/UL [facility] Hemoglobin 14.6 12.0 - 15.0 GM/DL [facility] Hematocrit 43.9 36 - 45 % [facility] MCV 92.9 80 - 100 FL [facility] MCH 30.9 26 - 34 PG [facility] MCHC 33.3 32.0 - 36.0 G/DL [facility] RDW 13.7 11 - 15 % [facility] Platelet Count 415 (H) 150 - 400 K/UL [facility] MPV 6.7 (L) 7 - 11 FL [facility] Specimen Blood Performing Organization Address City/State/Zipcode Phone Number [facility] [address] [place] [address] documented in this encounter Visit Diagnoses Diagnosis Crohn's disease with complication, unspecified gastrointestinal tract location (HCC) - Primary documented in this encounter
--- OUTSIDE RECORDS SUMMARY | 2019-04-12 23:05 | XMS REPORT | Encounter Summary ---
Author Author [facility] Organization [facility] Address Unknown Phone Unavailable Care Team Providers Care Pellet Mill Operator Name Role Phone Barber Nguyen MD Unavailable Naveed Lockhart DO PCP Mychart, Generic Provider Unavailable Unavailable Mary Gomez Unavailable Unavailable Loreta Mfcadden Unavailable Encounter Details Care Team Description Date Type Department Moncho Odonnell MD [address] Ortho/Med Pavilion Lvl [address]B [place] [address] [phone] Crohn's disease, unspecified, with unspecified complications (HCC) 03/16/2017 Hospital [facility] [address] [place] [id number] Social History Date Tobacco Use Types Packs/Day [...] gram tablet by mouth daily with breakfast. 05/19/2016 Sodium,Potassium,&Mag Take 2 354 mL 0 Sulfates 17.5-3.13-1.6 Bottles by gram solrIndications: mouth as Crohn's disease with directed. For complication, unspecified split dose gastrointestinal tract colonoscopy location (HCC), prep. Gastroesophageal reflux disease, esophagitis presence not specified 05/21/2016 04/10/2017 budesonide (ENTOCORT EC) Take 1 Cap by 168 Cap 0 3 mg capsule mouth as directed. 3 tabs daily x 8 weeks, 2 tabs daily x 1 week, 1 tab daily x 1 week then stop 05/22/2016 04/10/2017 cholecalciferol(+) Take 1 Cap by 8 Cap 0 (Vitamin D3) 50,000 units mouth every 7 capsule days. 8 weeks,then OTC Vit D3 1000units by mouth daily thereafter. Check lab in 12 weeks. 07/17/2016 04/21/2017 Mesalamine 500 mg cpER Take 2 Caps 240 Cap 0 by mouth twice daily. 11/10/2016 05/03/[address](+) TAKE 1 90 Cap 1 (PRILOSEC) 40 mg capsule CAPSULE BY MOUTH DAILY BEFORE BREAKFAST 10/12/2016 04/21/2017 PENTASA 500 mg cpER TAKE 2 240 Cap 0 CAPSULES BY MOUTH TWICE DAILY documented as of this encounter Plan of Treatment Not on filedocumented as of this encounter Procedures Comments Procedure Name Priority Date/Time Associated Diagnosis CBC Routine 03/16/2017 Crohn's disease with 2:31 PM CDT complication, unspecified gastrointestinal tract location (HCC) COMPREHENSIVE METABOLIC Routine 03/16/2017 Medication monitoring PANEL 2:31 PM CDT encounter Crohn's disease with other complication (HCC) documented in this encounter Results * CBC (03/16/2017 2:31 [...] MAIN LAB Specimen Blood Performing Organization Address [facility] Phone [facility] [address] [place] [address] * COMPREHENSIVE METABOLIC PANEL (03/16/2017 2:31 PM CDT) Sodium 139 137 - 147 MMOL/L [facility] Potassium 3.8 3.5 - 5.1 MMOL/L [facility] Chloride 105 98 - 110 MMOL/L [facility] Glucose 88 70 - 100 MG/DL [facility] Blood Urea 7 7 - 25 MG/DL [facility] Nitrogen Creatinine 0.77 0.4 - 1.00 MG/DL [facility] Calcium 9.4 8.5 - 10.6 MG/DL [facility] Total Protein 7.1 6.0 - 8.0 G/DL [facility] Total Bilirubin 0.4 0.3 - 1.2 MG/DL [facility] Albumin 4.2 3.5 - 5.0 G/DL [facility] Alk Phosphatase 83 25 - 110 U/L [facility] AST (SGOT) 16 7 - 40 U/L [facility] CO2 30 21 - 30 MMOL/L [facility] ALT (SGPT) 14 7 - 56 U/L [facility] Anion Gap 4 3 - 12 [facility] eGFR Non >60 >60 mL/min [facility] Comment: Albanian The eGFR is not validated for use in drug dosing adjustments.Continue to use estimated creatinine clearance per dosing reference text.Please contact the Clinical Pharmacist for questions. eGFR >60 >60 mL/min [facility] [place]ian Comment: The eGFR is not validated for use in drug dosing adjustments.Continue to use estimated creatinine clearance per dosing reference text.Please contact the Clinical Pharmacist for questions. Specimen Blood Performing Organization Address City/[facility]/Zipcode Phone Number MAIN LAB [address] [place] [address] documented in this encounter Visit Diagnoses Diagnosis Medication monitoring encounter Encounter for therapeutic drug monitoring Crohn's disease with complication, unspecified gastrointestinal tract location (HCC) documented in this encounter
--- OUTSIDE RECORDS SUMMARY | 2019-04-12 23:05 | XMS REPORT | Encounter Summary ---
Author Author [facility] Organization [facility] Address Unknown Phone Unavailable Care Team Providers Care Trailer Steerer Name Role Phone Barber Nguyen MD Unavailable Naveed Lockhart DO PCP Mychart, Generic Provider Unavailable Unavailable Mary Gomez Unavailable Unavailable Loreta Mcfadden Unavailable Reason for Visit * Reason Comments Medication Refill Encounter Details Care Team Description Date Type Department Barber Nguyen MD [address] Ortho/Med Pavilion Lvl [address]B [place] [address] 04/21/2017 Refill [facility] Physicians - Internal Medicine [address] MED OFFICE BLDG 2ND [place] [address] Social History Date Tobacco Use [...]
--- OUTSIDE RECORDS SUMMARY | 2019-04-12 23:05 | XMS REPORT | Encounter Summary ---
Author Author [facility] Organization [facility] Address Unknown Phone Unavailable Care Team Providers Care Studio Artist Name Role Phone Barber Nguyen MD Unavailable Naveed Lockhart DO PCP Mychart, Generic Provider Unavailable Unavailable Mary Gomez Unavailable Unavailable Loreta Mcfadden Unavailable Reason for Visit * Reason Comments Medication Refill Encounter Details Care Team Description Date Type Department Loreta Mcfadden ARNP [address] Ortho/Med Pavilion Lvl [address] [place] [address] 11/08/[address] [facility] Physicians - Internal Medicine [address] MED OFFICE BLDG [address] [address] Social History Date Tobacco Use [...]
--- OUTSIDE RECORDS SUMMARY | 2019-04-12 23:05 | XMS REPORT | Encounter Summary ---
Author Author [facility] Organization [facility] Address Unknown Phone Unavailable Care Team Providers Care Location Man Name Role Phone Barber Nguyen MD Unavailable Naveed Lockhart DO PCP Mychart, Generic Provider Unavailable Unavailable Mary Gomez Unavailable Unavailable Loreta Mcfadden Unavailable Reason for Visit * Reason Comments Medication Refill Encounter Details Care Team Description Date Type Department Barber Nguyen MD [address] Ortho/Med Pavilion Lvl [address]B [place] [address] 04/19/2017 Refill [facility] Physicians - Internal Medicine [address] MED OFFICE BLDG 2ND [place] [address] Social History Date Tobacco Use [...]
--- OUTSIDE RECORDS SUMMARY | 2019-04-12 23:06 | XMS REPORT | Encounter Summary ---
Author Author [facility] Organization [facility] Address Unknown Phone Unavailable Care Team Providers Care Side Panel Padder Name Role Phone Barber Nguyen MD Unavailable Naveed Lockhart DO PCP Mychart, Generic Provider Unavailable Unavailable Mary Gomez Unavailable Unavailable Loreta Mcfadden Unavailable Reason for Visit * Reason Comments Medication Refill Encounter Details Care Team Description Date Type Department Moncho Odonnell MD [address] [place] [facility] Ortho/Med Pavilion Lvl [address] [place] [address] Medication Refill 07/06/2016 Telephone [facility] Physicians - Internal Medicine [address] [facility] MED OFFICE BLDG 2ND [place] [address] Social History Date Tobacco Use [...] Telephone Encounter - Parris Ramirez RN - 07/06/2016 1:51 PM CDT Caller on the behalf of patient, left message on Wednesday needs refill on Pentas a which is not on her medication list. Attempt to call patient back as patient was too seen today by Loreta Mcfadden NP without mention of needing this medication but message states per the subscriber's request is not accepting incoming calls when calling back in follow-up from this call. documented in this encounter Plan of Treatment Not on filedocumented as of this encounter Visit Diagnoses Not on filedocumented in this encounter
--- OUTSIDE RECORDS SUMMARY | 2019-04-12 23:06 | XMS REPORT | Encounter Summary ---
Author Author [facility] Organization [facility] Address Unknown Phone Unavailable Care Team Providers Care Postal Mail Carrier Name Role Phone Barber Nguyen MD Unavailable Naveed Lockhart DO PCP Mychart, Generic Provider Unavailable Unavailable Mary Gomez Unavailable Unavailable Loreta Mcfadden Unavailable Reason for Visit * Auth/Cert Referred By Contact Referred To Contact Status Reason Specialty Diagnoses / Procedures [facility] [address] [place] [address] Diagnoses Crohn disease (HCC) GERD (gastroesophageal reflux disease) Procedures COLONOSCOPY ESOPHAGOGASTRODUOD ENOSCOPY Encounter Details Care Team Description Date Type Department Cris Palomino SRNA 05/21/2016 Anesthesia [facility] [address] [place] [address] Anesthesia Record Responsible Anesthesiologist Anesthesia Start Time Anesthesia Stop Time Procedure Name Nia Trejo MD 05/21/16 0746 05/21/16 0816 COLONOSCOPY (N/A ) Date Time Event Comment 658 AN Equip Check 2015 745 Anes Start 0746 An Start Data 0746 Start Supplemental O2 0747 Anesthesia Ready 0748 0752 Quick Note EtCO2 reading not accurate, due to scope interference 0811 an stop data 0815 Handoff to RN I completed my SBAR handoff to the receiving nurse. 0816 An Stop Meds Name Total lidocaine (2%) 200 mg/10mL Injection 100 mg syringe propofol (DIPRIVAN) 200 mg/ 20 mL 200 mg injection (VIAL) propofol (DIPRIVAN) infusion 200 mg 163.85 mg phenylephrine (MINNIE-SYNEPHRINE) 0.1 mg/mL 100 mcg injection (SYRINGE) sodium chloride 0.9 % infusion (1000 800 mL mL bag) * Name O2 N2O Inspired N2O * No blood administrations on file. Removal Type Details Placement 05/21/16 0844 by Usman Whipple RN Peripheral 05/21/16; 0743; R; Anterior; Forearm; 20 05/21/16 0743 by TABATHA Whipple G (placed by Cristobal Bonilla rn); 05/21/16; ANTWAN Mary 0844 documented in this encounter Social History Date Tobacco Use Types Packs/Day Years Used Current Every Day Smoker Cigarettes 0.5 11 Drinks/Week oz/Week Comments Alcohol Use No Sex Assigned at Date Recorded Not on file Industry Job Start Date Occupation Not on file Not on file Not on file Travel End Travel History Travel Start No recent travel history available. documented as of this encounter OR Notes * Anesthesia Postprocedure Evaluation - Nia Trejo MD - 05/21/2016 9:38 AM CDT Post-Anesthesia Evaluation Name: Mady Yoon : 1980 Age: 36 y. o. Sex: female Procedure Date: 05/21/2016 Procedure: Procedure(s): COLONOSCOPY ESOPHAGOGASTRODUODENOSCOPY ESOPHAGOGASTRODUODENOSCOPY BIOPSY Surgeon: Surgeon(s): Moncho Odonnell MD Post-Anesthesia Vitals BP: 107/78 mmHg (05/21 839) Temp: 36.3 C (97.3 F) (05/21 815) Pulse: 75 (05/21 839) Respirations: 16 PER MINUTE (05/21 728) SpO2: 99 % (05/21 839) O2 Delivery: None (Room Air) (05/21 728) SpO2 Pulse: 75 (05/21 839) Height: 160 cm (63") (05/21 728) Post Anesthesia Evaluation Note Evaluation location: Pre/Post Patient participation: recovered; patient participated in evaluation Level of consciousness: alert Pain score: 3 Pain management: adequate Hydration: normovolemia Temperature: 36.0C - 38.4C Airway patency: adequate Perioperative Events Perioperative events: no Post-op nausea and vomiting: no PONV Postoperative Status Cardiovascular status: hemodynamically stable Respiratory status: spontaneous ventilation Additional comments: Fentanyl and percocet after procedure * Anesthesia Preprocedure Evaluation - Nia Trejo MD - 05/21/2016 7:31 AM CDT Anesthesia Pre-Procedure Evaluation Name: Mady Yoon : 1980 Age: 36 y. o. Sex: female Procedure Date: 05/21/2016 Procedure: Procedure(s): COLONOSCOPY ESOPHAGOGASTRODUODENOSCOPY Physical Assessment Vital Signs (last filed in past 24 hours): Patient History Allergies Allergen Reactions Nsaids (Non-Steroidal Anti-Inflammatory Drug) SEE COMMENTS Stomach bleeding Pcn [Penicillins] Current Medications Medication Directions HYDROcodone/acetaminophen (NORCO; VICODIN) 5-325 mg tablet Take 1 Tab by mouth e very 6 hours as needed. LORATADINE (CLARITIN PO) Take by mouth. Mesalamine (LIALDA) 1.2 gram tablet Take 4 Tabs by mouth daily with breakfast. L ot [id number] Exp 11/[address](+) (PRILOSEC) 40 mg capsule Take 1 Cap by mouth twice daily before meals. Sodium,Potassium,&Mag Sulfates 17.5-3.13-1.6 gram solr Take 2 Bottles by mouth as directed. For split dose colonoscopy prep. Scheduled Meds:Continuous Infusions: PRN and Respiratory Meds: Review of Systems/Medical History Patient summary reviewed Pertinent labs reviewed No history of anesthetic complications: No family history of anesthetic complica tions: Pulmonary: Current smoker (smokes 1/2 pack per day for 17 years) Asthma (childhood, never uses inhalers, no ER visits ) No recent URI, No shortness of breath No sleep apnea Neuro/Psych: No seizures, No CVA, No headaches No indications/hx of substance abuse No indications/hx of sensory deficit HX of severe anxiety disorder Cardiovascular: Negative Musculoskeletal: Arthritis HX of arthroscopic right hip surgery 01/07 GI/Hepatic/Renal: Inflammatory bowel disease (HX of Crohns more recnt hx of blood in stool. ) GERD (Patirnt stares reflux once per week, not taking prescribed medication for her GERD), poorly controlled Bowel prep Endocrine/Other: Not (h/o hysterectomy); GA:Unknown, GP:No obstetric history on file . Physical Exam Airway Findings Mallampati: I TM distance: >3 FB Neck ROM: full Mouth opening: good Airway patency: adequate Dental Findings: Negative Cardiovascular Findings: Negative Rhythm: regular Pulmonary Findings: Negative Abdominal Findings: Comments: Did not assess, denies abdominal pain or nausea Neurological Findings: Negative Diagnostic Tests Hematology: Lab Results Component Value Date HGB 14.0 05/19/2016 HCT 41.7 05/19/2016 PLTCT 388 05/19/2016 WBC 9.1 05/19/2016 NEUT 47 05/29/2014 ANC 3.90 05/29/2014 ALC 3.30 05/29/2014 VIKTORIYA 7 05/29/2014 AMC 0.60 05/29/2014 EOSA 4 05/29/2014 ABC 0.00 05/29/2014 MCV 92.3 05/19/2016 MCH 31.0 05/19/2016 MCHC 33.6 05/19/2016 MPV 7.2 05/19/2016 RDW 14.3 05/19/2016 General Chemistry: Lab Results Component Value Date NA 143 05/19/2016 K 3.1 05/19/2016 CL 106 05/19/2016 CO2 29 05/19/2016 GAP 8 05/19/2016 BUN 5 05/19/2016 CR 0.74 05/19/2016 GLU 93 05/19/2016 GLU 79 08/07/2004 CA 10.0 05/19/2016 ALBUMIN 4.2 05/19/2016 TOTBILI 0.4 05/19/2016 Coagulation: No results found for: PT, PTT, INR Anesthesia Plan ASA score: 3 Plan: MAC Induction method: intravenous NPO status: acceptable Informed Consent Anesthetic plan and risks discussed with patient and spouse. Use of blood products discussed with patient and spouse; consented to blood prod ucts. Plan discussed with: anesthesiologist and INDIVIDUALIZED EDUCATION PLAN AIDE. documented in this encounter Plan of Treatment Not on filedocumented as of this encounter Visit Diagnoses Not on filedocumented in this encounter Administered Medications Action Date Dose Rate Site Medication Order MAR Action 05/21/2016 7:46 AM CDT 100 mg lidocaine (PF) injection Given INTRA-PROCEDURE MED, Starting Jacquelyn 05/21/16 at 0746, Until Jacquelyn 05/21/16 at 0816, Anesthesia Intra-op 05/21/2016 7:58 AM CDT 100 mcg Phenylephrine HCl in NS Injection Given INTRA-PROCEDURE MED, Starting Jacquelyn 05/21/16 at 0800, Until Jacquelyn 05/21/16 at 0816, Symptomatic Hypotension, Anesthesia Intra-op 05/21/2016 8:01 AM CDT 120 mcg/kg/min 54.6 mL/hr propofol (DIPRIVAN) infusion 200 mg Dose/Rate 200 mg Change 20 mL, Intravenous, INTRA-PROCEDURE MED(CONT), Starting Jacquelyn 05/21/16 at 0747, Until Jacquelyn 05/21/16 at 0816, Anesthesia Intra-op 100 mcg/kg/min 45.5 mL/hr Dose/Rate Change 05/21/2016 7:49 AM CDT 120 mcg Given - New Bag 05/21/2016 7:47 AM CDT 05/21/2016 8:01 AM CDT 20 mg propofol (DIPRIVAN) injection Given INTRA-PROCEDURE MED, Starting Jacquelyn 05/21/16 at 0747, Until Jacquelyn 05/21/16 at 0816, Anesthesia Intra-op 20 mg Given 05/21/2016 7:56 AM CDT 20 mg Given 05/21/2016 7:52 AM CDT 05/21/2016 7:40 AM CDT sodium chloride 0.9 % infusion Given - New INTRA-PROCEDURE MED(CONT), Starting Jacquelyn Bag 05/21/16 at 0740, Until Jacquelyn 05/21/16 at 0816, Anesthesia Intra-op documented in this encounter
--- OUTSIDE RECORDS SUMMARY | 2019-04-12 23:06 | XMS REPORT | Encounter Summary ---
Author Author [facility] Organization [facility] Address Unknown Phone Unavailable Care Team Providers Care Investment Professional Name Role Phone Barber Nguyen MD Unavailable Naveed Lockhart DO PCP Mychart, Generic Provider Unavailable Unavailable Mary Gomez Unavailable Unavailable Loreta Mcfadden Unavailable Reason for Referral * Radiology Services Referred By Contact Referred To Contact Status Reason Specialty Diagnoses / Procedures [employer], Loreta, 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 [address] [facility] [address] [place] [address] Gen [address] [place] [address] Closed Radiology Diagnoses Crohn's disease with complication, unspecified gastrointestinal tract location (HCC) Abdominal pain, unspecified location P rocedures MRI PELVIS WO/W CONTRAST * Radiology Services Referred By Contact Referred To Contact Status Reason Specialty Diagnoses / Procedures [employer], 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, 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 [address] [facility] [address] [place] [address] Gen Radiology [address] [place] [address] Closed Radiology Diagnoses Crohn's disease with complication, unspecified gastrointestinal tract location (HCC) Abdominal pain, unspecified location P rocedures MRI PELVIS WO/W CONTRAST * Radiology Services Referred By Contact Referred To Contact Status Reason Specialty Diagnoses / Procedures Loreta Mcfadden ARNP [address] [facility] [address] [place] [address] Gen Radiology [address] [place] [address] Closed Radiology Diagnoses Crohn's disease with complication, unspecified gastrointestinal tract location (HCC) Abdominal pain, unspecified location P rocedures MRI ABD WO/W CONTRAST * Radiology Services Referred By Contact Referred To Contact Status Reason Specialty Diagnoses / Procedures Loreta Mcfadden ARNP [address] [facility] [address] [address] [facility] Radiology [address] [place] [address] Closed Radiology Diagnoses Crohn's disease with complication, unspecified gastrointestinal tract location (HCC) Abdominal pain, unspecified location P rocedures MRI ABD WO/W CONTRAST Reason for Visit * Radiology Services Referred By Contact Referred To Contact Status Reason Specialty Diagnoses / Procedures Loreta Mcfadden ARNP [address] [facility] [address] [place] [address] Gen Radiology [address] [place] [address] Closed Radiology Diagnoses Crohn's disease with complication, unspecified gastrointestinal tract location (HCC) Abdominal pain, unspecified location P rocedures MRI PELVIS WO/W CONTRAST Encounter Details Care Team Description Date Type Department Loreta Mcfadden ARNP [address] [facility] [address] [place] [address] [phone] Canceled (Patient-Financial/Insurance Issue) 08/23/2016 [facility] [address] [address] Social History Date Tobacco Use Types Packs/Day [...] 240 Cap 0 by mouth twice daily. 05/22/2016 11/08/[address](+) Take 1 Cap by 30 Cap 3 (PRILOSEC) 40 mg capsule mouth daily before breakfast. documented as of this encounter Plan of Treatment Order Schedule Name Type Priority Associated Diagnoses 1 Occurrences starting 08/23/2016 until 08/23/2016 MRI ABD WO/W CONTRAST Imaging Routine Crohn's disease with complication, unspecified gastrointestinal tract location (HCC) Abdominal pain, unspecified location 1 Occurrences starting 08/23/2016 until 08/23/2016 MRI PELVIS WO/W CONTRAST Imaging Routine Crohn's disease with complication, unspecified gastrointestinal tract location (HCC) Abdominal pain, unspecified location documented as of this encounter Visit Diagnoses Diagnosis Crohn's disease with complication, unspecified gastrointestinal tract location (HCC) Abdominal pain, unspecified location documented in this encounter
--- OUTSIDE RECORDS SUMMARY | 2019-04-12 23:06 | XMS REPORT | Encounter Summary ---
Author Author [facility] Organization [facility] Address Unknown Phone Unavailable Care Team Providers Care Pattern Puncher Name Role Phone Barber Nguyen MD Unavailable Naveed Lockhart DO PCP Mychart, Generic Provider Unavailable Unavailable Mary Gomez Unavailable Unavailable Loreta Mcfadden Unavailable Reason for Visit * Reason Comments Medication Refill Encounter Details Care Team Description Date Type Department Moncho Odonnell MD [address] [facility] [address] [place] [address] 10/12/2016 Refill [facility] - Internal Medicine [address] MED OFFICE [address]LDG [address] [address] Social History Date Tobacco Use [...]
--- OUTSIDE RECORDS SUMMARY | 2019-04-12 23:06 | XMS REPORT | Encounter Summary ---
Author Author [facility] Organization [facility] Address Unknown Phone Unavailable Care Team Providers Care Sweeper Driver Name Role Phone Barber Nguyen MD Unavailable Naveed Lockhart DO PCP Mychart, Generic Provider Unavailable Unavailable Mary Gomez Unavailable Unavailable Loreta Mcfadden Unavailable Reason for Visit * Reason Comments Prior Authorization Encounter Details Care Team Description Date Type Department Moncho Odonnell MD [address] Orth[facility] [address] [place] [address] Prior Authorization 07/29/2016 Telephone [facility] - Internal Medicine [address] MED OFF[address]LD[address]ND [place] [address] Social History Date Tobacco Use [...] Telephone Encounter - Parris Ramirez RN - 07/30/2016 9:30 AM CDT Patient aware Cady has gone to PA. Patient states she did not request this me dication to be filled as "it does not work." Patient to get with her Pharmacy a s our office got request from her Pharmacy to fill in which Dr. Odonnell did give authorization. * Telephone Encounter - Jenna Garcia - 07/29/2016 4:08 PM CDT Contacted patient's insurance at [phone] and completed PA over the phone fo r medication Lialda 1.2 gm. Reference number is [id number], approval or denial to be faxed to office. documented in this encounter Plan of Treatment Not on filedocumented as of this encounter Visit Diagnoses Not on filedocumented in this encounter
--- OUTSIDE RECORDS SUMMARY | 2019-04-12 23:06 | XMS REPORT | Encounter Summary ---
Author Author [facility] Organization [facility] Address Unknown Phone Unavailable Care Team Providers Care Frickertron Checker Name Role Phone Barber Nguyen MD Unavailable Naveed Lockhart DO PCP Mychart, Generic Provider Unavailable Unavailable Mary Gomez Unavailable Unavailable Loreta Mcfadden Unavailable Reason for Visit * Reason Comments Appointment Question Encounter Details Care Team Description Date Type Department Moncho Odonnell MD [address] [facility] Ortho/Med [facility] [address] [place] [address] Appointment Question 07/24/2016 Telephone [facility] - Internal Medicine [address] MED OFF[address] [place] [address] Social History Date Tobacco Use [...] Telephone Encounter - Parris Ramirez RN - 07/24/2016 2:26 PM CDT Previous communication with patient was that she was not able to come to [facility] after 09/2016 but by review of appointments, patient has appointment with Dr. Odonnell this upcoming Wednesday. Asked for patient to call Scheduling if unable to come to this appointment. documented in this encounter Plan of Treatment Not on filedocumented as of this encounter Visit Diagnoses Not on filedocumented in this encounter
--- OUTSIDE RECORDS SUMMARY | 2019-04-12 23:06 | XMS REPORT | Encounter Summary ---
Author Author [facility] Organization [facility] Address Unknown Phone Unavailable Care Team Providers Care Entry Level Assistant Manager Name Role Phone Barber Nguyen MD Unavailable Naveed Lockhart DO PCP Mychart, Generic Provider Unavailable Unavailable Mary Gomez Unavailable Unavailable Loreta Mcfadden Unavailable Encounter Details Care Team Description Date Type Department Naveed Lockhart DO [address] [place] [address] 05/21/2016 Endo Rslt Enc [facility] [address] [place] [place] [address] Social History Date Tobacco Use Types Packs/Day [...] Comments Procedure Name Priority Date/Time Associated Diagnosis COLONOSCOPY 05/21/2016 7:35 AM CDT documented in this encounter Results * COLONOSCOPY (05/21/2016 7:35 AM CDT) Provation Patient Name: Karrie HALL OTHER Report Procedure Date: 05/21/2016 7:35 RESULTS AM CSN: [id number] Date of : 1980 Gender: Female Attending Physician: Moncho Odonnell MD Procedure: Colonoscop y Indications: Disease activity assessment of Crohn's disease of the small bowel Providers: Moncho Odonnell MD (Doctor), Marii Francisco RN (Nurse), Usman Curtis, Brush Painter (Brush Painter) Referring Physician: Naveed Lockhart Medications: Monitored Anesthesia Care Complications: No immediate complications. Findings: The colon (entire examined portion) appeared normal. Diffuse inflammation, severe in severity and characterized by erosions and linear erosions was found in the distal ileum. Non-bleeding external hemorrhoids were found during perianal exam. The hemorrhoids were moderate. Impression: - The entire examined colon is normal. - Crohn's disease with ileitis. - Non-bleeding external hemorrhoids. - No specimens collected. Estimated Blood Loss: Estimated blood loss was minimal. Recommendation: - Patient has a contact number available for emergencies. The signs and symptoms of potential delayed complications were discussed with the patient. Return to normal activities tomorrow. Written discharge instructions were provided to the patient. - Resume previous diet. - Continue present medications. - Repeat colonoscopy is recommended for retreatment. The colonoscopy date will be determined after pathology results from today's exam become available for review. Scope In: 8:01:34 AM Scope Out: 8:08:54 AM Scope Withdrawal Time 0 hours 5 minutes 1 second Total Procedure Duration Time 0 hours 7 minutes 20 seconds Procedure Code(s): --- Professional --- 55397, Colonoscopy, flexible; diagnostic, including collection of specimen(s) by brushing or washing, when performed (separate procedure) Diagnosis Code(s): --- Professional --- K50.00, Crohn's disease of small intestine without complications K64.4, Residual hemorrhoidal skin tags CPT copyright 2015 [employer]. All rights reserved. The codes documented in this report are preliminary and upon fitting room supervisor review may be revised to meet current compliance requirements. Attending Participation: I personally performed the entire procedure. MD Moncho Polanco MD 05/21/2016 8:28:53 AM The attending physician has electronically signed and finalized this document. Number of Addenda: 0 Note Initiated On: 05/21/2016 7:35 AM Specimen Performing Organization Address City/State/Zipcode Phone Number [facility] OTHER RESULTS documented in this encounter Visit Diagnoses Not on filedocumented in this encounter
--- OUTSIDE RECORDS SUMMARY | 2019-04-12 23:06 | XMS REPORT | Encounter Summary ---
Author Author [facility] Organization [facility] Address Unknown Phone Unavailable Care Team Providers Care Associate Dean Of Students Name Role Phone Barber Nguyen MD Unavailable Naveed Lockhart DO PCP Mychart, Generic Provider Unavailable Unavailable Mary Gomez Unavailable Unavailable Loreta Mcfadden Unavailable Reason for Visit * Reason Comments Medication Refill Encounter Details Care Team Description Date Type Department Loreta Mcfadden ARNP [address] [facility] Ortho/Med [facility] [address] [place] [address] Medication Refill 07/17/2016 Telephone [facility] - Internal Medicine [address] [facility] MED OFFICE [address] [address] Social History Date Tobacco Use [...] Telephone Encounter - Parris Ramirez RN - 07/17/2016 12:52 PM CDT Pentasa 1gm bid was dose mentioned in last office note by Loreta Mcfadden NP. Will update medication list and e-scribe medication to patient's pharmacy per Dr. Chavez's authorization. Patient aware of Dr. Odonnell's authorization today. Joon t states she was informed during last office visit with Loreat Mcfadden NP that Pent asa would be e-scribed to her Pharmacy when I reviewed Loreta's last office note w ith patient. Patient was agreeable to give update once back on her Pentasa as d iscussed previous concern was constipation. * Telephone Encounter - Parris Ramirez RN - 07/17/2016 12:51 PM CDT OK to refill Pentasa at current dose. Thanks * Telephone Encounter - Parris Ramirez RN - 07/17/2016 11:28 AM CDT Patient is asking for refill on her Pentasa in which by review of Sarai's note t hat patient had declined samples during recent office visit. Can you please giv e Pentasa order and I will enter into patient's medication list and will send to Pharmacy? Thanks! Parris * Telephone Encounter - Sarai Moya LPN - 07/17/2016 10:08 AM CDT During OV w/ Loreta Mcfadden LEAD SETTER pt was offered samples of Pentasa and pt declined a t that time. Pt was provided samples of Pentasa by Dr. Odonnell 11/08/12 w/ instructions to take four caplets twice daily however pt stated she could not take the full dose at it was too constipating. Further management of plan of care to be deferred [facility] * Telephone Encounter - Parris Ramirez RN - 07/17/2016 9:59 AM CDT Patient on voice message asking for refill on her Pentasa. Review of chart, niels ble to see on patient's medication list. Attempt to call patient by review of p revious note and was not able to make contact to further discuss. Will route to Sarai Moya LPN with Loreta Mcfadden NP regarding patient's request for Pentasa ref ill request. documented in this encounter Plan of Treatment Not on filedocumented as of this encounter Visit Diagnoses Not on filedocumented in this encounter
--- OUTSIDE RECORDS SUMMARY | 2019-04-12 23:06 | XMS REPORT | Encounter Summary ---
Author Author [facility] Organization [facility] Address Unknown Phone Unavailable Care Team Providers Care Security Intern Name Role Phone Barber Nguyen MD Unavailable Naveed Lockhart DO PCP Mychart, Generic Provider Unavailable Unavailable Mary Gomez Unavailable Unavailable Loreta Mcfadden Unavailable Reason for Visit * Reason Comments Test Encounter Details Care Team Description Date Type Department Loreta Mcfadden ARNP [address] Ortho/Med [place] Lvl [address] [place] [address] Test 07/20/2016 Telephone [facility] - Internal Medicine [address] MED OFFICE BLDG [address] [address] Social History Date Tobacco Use [...] Telephone Encounter - Parris Ramirez RN - 07/20/2016 4:10 PM CDT Patient aware of recommendation regarding imaging to be done here at [facility]. Joon squires agrees to have done after September due to her work and family commitments. As ked for patient to call scheduling to reschedule and stated she would do so. * Telephone Encounter - Moncho Odonnell MD - 07/20/2016 3:32 PM CDT This needs to be done at due to wide variability in its accuracy based on exp erience of radiologist in this technique. thanks * Telephone Encounter - Loreta Mcfadden ARNP - 07/20/2016 11:45 AM CDT Please check with Dr. Odonnell to see if he is ok with an outside MRE. * Telephone Encounter - Parris Ramirez RN - 07/20/2016 11:14 AM CDT Patient asking about if could have her MR Enterography locally vs coming to . Will route to Loreta Mcfadden NP for opinion if OK to switch to local hospital [phone], Devora in MRI who confirmed they are able to do this test. documented in this encounter Plan of Treatment Not on filedocumented as of this encounter Visit Diagnoses Not on filedocumented in this encounter
--- OUTSIDE RECORDS SUMMARY | 2019-04-12 23:06 | XMS REPORT | Encounter Summary ---
Author Author [facility] Organization [facility] Address Unknown Phone Unavailable Care Team Providers Care Prefitter Name Role Phone Barber Nguyen MD Unavailable Naveed Lockhart DO PCP Mychart, Generic Provider Unavailable Unavailable Mary Gomez Unavailable Unavailable Loreta Mcfadden Unavailable Reason for Visit * Reason Comments Medication Refill Encounter Details Care Team Description Date Type Department Moncho Odonnell MD [address] [facility] Ortho/Med Pavilion Lvl [address]B [place] [address] Medication monitoring encounter (Primary Dx); Crohn's disease with other complication (HCC) 07/28/2016 Refill [facility] - Internal Medicine [address] [facility] MED OFFICE BLDG [address]ND [place] [address] Social History Date Tobacco Use [...] Telephone Encounter - Parris Ramirez RN - 07/28/2016 10:32 AM CDT Lab order mailed to patient for lab to be drawn locally as patient unable to com e to [facility] until after September for medication management. Dr. Odonnell gave authori zation for 30 day refill of patient's Lialda that until to see has been filled s joselito 02/2015 which was samples. documented in this encounter Plan of Treatment Order Schedule Name Type Priority Associated Diagnoses Expected: 07/28/2016 (Approximate), Expires: 07/28/2017 CBC AND DIFF Lab Routine Medication monitoring encounter Crohn's disease with other complication (HCC) documented as of this encounter Results * COMPREHENSIVE METABOLIC PANEL (03/16/2017 2:31 PM [...] >60 >60 mL/min [facility] Comment: [place] The eGFR is not validated for use in drug dosing adjustments.Continue to use estimated creatinine clearance per dosing reference text.Please contact the Clinical Pharmacist for questions. eGFR >60 >60 mL/min [facility] [place] Comment: The eGFR is not validated for use in drug dosing adjustments.Continue to use estimated creatinine clearance per dosing reference text.Please contact the Clinical Pharmacist for questions. Specimen Blood Performing Organization Address City/State/Zipcode Phone Number [facility] [address] [place] [address] documented in this encounter Visit Diagnoses Diagnosis Medication monitoring encounter - Primary Encounter for therapeutic drug monitoring Crohn's disease with other complication documented in this encounter
--- OUTSIDE RECORDS SUMMARY | 2019-04-12 23:06 | XMS REPORT | Encounter Summary ---
Author Author [facility] Organization [facility] Address Unknown Phone Unavailable Care Team Providers Care Ribbing Machine Operator Name Role Phone Barber Nguyen MD Unavailable Naveed Lockhart DO PCP Mychart, Generic Provider Unavailable Unavailable Mary Gomez Unavailable Unavailable Loreta Mcfadden Unavailable Reason for Visit * Reason Comments Prior Authorization Omeprazole Encounter Details Care Team Description Date Type Department Loreta Mcfadden, STEVIE [address] [facility] Ortho/Med Pavilion Lvl [address] [place] [address] Prior Authorization (Omeprazole ) 05/21/2016 Telephone [facility] - Internal Medicine [address] [facility] MED OFFICE BLDG [address]ND [place] [address] Social History Date Tobacco Use [...] encounter Miscellaneous Notes * Telephone Encounter - Maya Choudhary LPN - 05/25/2016 3:06 PM CDT Returned pt call from 05/22/2016 on this day. No answer. LVM. * Telephone Encounter - Maya Choudhary LPN - 05/22/2016 8:51 AM CDT Contacted pt pharmacy informed of below spoke with pharm. Senior Systems Architect. Omeprazole 40 mg was able to go through pts plan with once a day dosing Order changed from omeprazole 40 mg 1 tab PO BID to omeprazole 40 mg 1 tab QD Pt was contacted [facility] for pt to contact office (per 02 pt does not advise any i nformation left on VM) * Telephone Encounter - Maya Choudhary LPN - 05/21/2016 1:25 PM CDT PA DENIED for omeprazole. "Your plan covers only up to a set amount of this drug; 1 capsule daily. Your d octor asked for more of the drug than your plan covers." * Telephone Encounter - Maya Choudhary LPN - 05/21/2016 11:53 AM CDT PA completed on this day for Omeprazole. Carlos: VELMA, Will wait for response. documented in this encounter Plan of Treatment Not on filedocumented as of this encounter Visit Diagnoses Not on filedocumented in this encounter
--- OUTSIDE RECORDS SUMMARY | 2019-04-12 23:06 | XMS REPORT | Encounter Summary ---
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 [address] [facility] [address] [place] [address] Gen [address] [place] [id number] Closed Radiology Diagnoses Crohn's disease with complication, unspecified gastrointestinal tract location (HCC) Abdominal pain, unspecified location P rocedures MRI PELVIS WO/W CONTRAST * Radiology Services Referred By Contact Referred To Contact Status Reason Specialty Diagnoses / Procedures Utech, 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, 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 [address] [facility] [address] [place] [address] Gen Radiology [address] [place] [address] Closed Radiology Diagnoses Crohn's disease with complication, unspecified gastrointestinal tract location (HCC) Abdominal pain, unspecified location P rocedures MRI ABD WO/W CONTRAST Reason for Visit * Reason Comments Crohn's Disease Encounter Details Care Team Description Date Type Department Loreta Mcfadden ARNP [address] [facility] [address] [place] [address] Crohn's disease with complication, unspecified gastrointestinal tract location (HCC) (Primary Dx); Abdominal pain, unspecified location; Vitamin D deficiency 07/03/2016 Office Visit [facility] - Internal Medicine [address] [facility] MED [facility] [address] 2ND [place] [address] Social History Date Tobacco [...] Signs Reading Time Taken Comments Vital Sign 137/98 07/03/2016 2:02 PM CDT Blood Pressure 61 07/03/2016 2:02 PM CDT Pulse 36.4 C (97.5 F) 07/03/2016 2:02 PM CDT Temperature - - Respiratory Rate - - Oxygen Saturation - - Inhaled Oxygen Concentration 76.7 kg (169 lb) 07/03/2016 2:02 PM CDT Weight 160 cm (5' 3") 07/03/2016 2:02 PM CDT Height 29.94 07/03/2016 2:02 PM CDT Body Mass Index documented in this encounter Patient Instructions * Patient Instructions* Sarai Moya LPN - 07/03/2016 2:59 PM CDT 1) A MR Enterography has been ordered for you, you will schedule this at check o ut today. If you need to cancel or reschedule this please call radiology schedul ing at [phone]. 2) Continue on the same dose of Entocort for now. Let us know when you need a ne w prescription. 3) If you would like to restart Pentasa we do have samples at another location a nd could mail them to you. Follow up with Dr. Odonnell in clinic If you have any questions or concerns please contact my nurse, Sarai, at [phone] Odonnell's nurse Parris [phone] documented in this encounter Progress Notes * Sarai Moya LPN - 07/03/2016 3:09 PM CDT Provided pt with discharge instructions. Showed pt to check out to make MR Enter ography apt as well as OV w/ Dr Odonnell. Per check out PSR pt would not stay to [facility] and stated "I don't want to be here anymore" PSR to schedule both enterography and OV and mail information to pt. * Loreta Mcfadden ARNP - 07/03/2016 2:09 PM CDT Date of Service: 07/03/2016 Subjective: Yossi Blandon is a 36 y.o. female. History of Present Illness Yossi is a pleasant 36 yo female who is an established patient of Dr Lupillo Odonnell with a h/o ileocolonic Crohn's disease and a long history of medical co mpliance. She has been intolerant to multiple classes of medications - including hives with Remicade and 6MP - SOA and rash. Her most recent OV with Dr. Odonnell was in 12/2014. At that time she reported compliance with Lialda at 4 tabs once d aily. She continued to smoke cigarettes after multiple recommendations to stop a nd discussion about how this likely exacerbates her Crohn's. She had continued p ost prandial generalized abdominal pain associated with nausea and abdominal dis tention. No vomiting. Abdominal pain was dull, nonspecific, and could last for h ours at a time. No fevers, chills. Plan: 1. Check CBC, B12 level, C-RP, and Hillary min D level. 2. Given limited medical options, will attempt again budesonide at 9mg per day. Though not a longterm maintenance option, it was the best availabl e in the context of her extreme medical noncompliance. 3. Stop smoking and discu ss options to aid in smoking cessation with her primary care physician. 4. RTC i n four months. I saw her for the first time on 05/19/16 for chronic abdominal pain and Crohn's d isease. Has been unable to come in to be seen by Dr. Odonnell since 12/2014 due to transportation issues and having to frequently reschedule appointments. She had multiple ED visits and an admission in [place] since 01/2016 - 77 pages of records were reviewed and summarized below. Was treated multiple times with prednisone, Cipro, Flagyl. Stool for C. diff in 03/[address] A/P was done several times - all showed bowel wall thickening to remaining portion of the colon and more prominent in the distal ileum proximal to the ileocolonic anastomosis - sl ightly improved with last CT on 04/20/16. No ED visits or admissions since late . No EGD or colonoscopy exams were done. At the OV she reported chronic RLQ pain since 1st surgery for Crohn's disease, constant but severity will vary. Pa in was worse 5-10 minutes after eating or drinking. Varying degrees of nausea da reyes, rare vomiting. Bowel pattern is 5-6, loose to watery stools per day (BSFS t ype 6-7), reports BRB in stools when admitted in 03/2016 and still blood daily. O ff prednisone completely for ~ 4weeks. Since in ER in 03/2016 had been taking Pen tasa 500 mg 2 po qd, anymore than that causes her constipation. Frequent acid re flux into throat, on no medications. Some improvement omeprazole qd in the past. No colonoscopy since 06/2014 and no EGD since 2008. No recent MRE, CTE, or SBCE. mild improvement of abdominal pain with hyoscyamine, hydrocodone also not real helpful. No history of fistula. Had been off all Crohn's disease meds for 2 year s. In 2013 was on Lialda, stopped getting covered by her insurance and not helpf ul. Asacol, Pentasa, Lialda not helpful. Remicade led to hives. Had been on 6MP in the past - thinks she had problems taking it - SOB and rash. Never been on az athioprine. Never on Humira or Cimzia. Does not like/tolerate Uceris or budesoni de. No history of C. diff. Still smoking ~10 cigarettes per day. She stated she had followed up with her PCP for smoking cessation - reports nicotine patches do n't work nor does Wellbutrin or Chantix. Restaging of Crohn's disease with EGD a nd colonoscopy recommended along with baseline lab. Here for follow up. EGD unremarkable. Colonoscopy revealed normal appearing colo n, severe diffuse inflammation, erosions and linear erosions, found in distal il eum. Lab results overview - C. diff negative. Vit D low 23.8, rx for 50,000 unit s Vitamin D, take once a week for 8 weeks, then start OTC Vitamin D3 1,000 units per day recommended with repeat Vitamin D level in 12 weeks. Also, potassium low - encouraged K+ rich foods - have repeat K+ 1-2 weeks by PCP. She states she c ould not afford to get the Vit D filled. Dr. Odonnell started her on Entocort 9 mg qd for 8 weks then will taper for next 2 weeks then stop. This has not changed her GI sx at all - still 5-6 watery stools per day. Lots of mucus, Blood still t here, maybe smaller amounts. She states she is not eating much, wt up 3# since l ast OV. Ran out of Pentasa 2 days ago so has taken a few doses of Lialda she had at home since then. Still has intermittent nausea, unchanged, no vomiting. Omep razole 40 mg qd has helped, acid regurg now rare. Patient very angry during OV, yelling and tearful at times. Her last cigarette w as yesterday - states "if Dr. Odonnell does not start me on medicine for my Crohn' s disease I am just going to start smoking again" and "if he is not going to javan at me I guess I will just ." Received and reviewed 77 pages of outside records prior to 04/2016 [address] [facility] in [place], [place] from multiple ED visits and an admission - summarized bel ow. 02/01/16 - ED visit - seen for abdominal pain, N/V. Patient reported had been off all Crohn's disease medications due to insurance not covering them. - CMP, normal LFTs, albumin,normal Cr, Normal H/H, WBC 9.3, negative UA. - CT A/P with IV contrast - hepatic steatosis, abnormal wall thickening about di stal ileum and transverse colon, slight asymmetric wall thickening versus cleft appearance about sigmoid colon, small bowel with mild prominent enhancement. - d/c with po prednisone and hydrocodone. 02/24/16 - ED visit - reports tick bite - cough, JEAN-BAPTISTE, sore throat, fever up to 103. - CMP WNL except K+ 2.9, negative strep, normal WBC, negative CXR - po K+ replacement, told to start doxycycline as previously prescribed by her P CP. 03/25/16 - ED visit - abdominal pain, blood in stool - normal CBC, repeat K+ 3.4, nml CMP, nml TSH 1.95, nml CBC, - CT A/P with IV contrast - bowel wall thickening seen to remaining portion of t he colon and more prominent in the distal ileum proximal to the ileocolonic anas tomosis, similar to CT 01/2016, no abscess or pelvic fluid, + fat containing umbi lical hernia. - prescribed hydrocodone, Flagyl 500 mg tid for 7 days, Cipro 500 mg bid for 7 d ays, prednisone 40 mg qd for 3 days. 04/11/16 - ED visit - abdominal pain. - CBC, CMP normal. - prescribed Cipro 500 bid for 7 days, Flagyl 500 tid for days, hydrocodone, Lev sin prn, Mesalamine 1gm qid. 04/15/16-04/21/16 - Admission - abdominal pain. - negative stool for C. diff, culture, and O/P. + hemoccult, K+ on admission 3.0 and WBC 11.6. - CRP 3.03. Normal LFTs, lipase, - CT A/P with IV contrast - 04/20/16 - moderate amount retained stool, improved i nflammation proximal right colon, decreased fatty stranding and smaller mesenter ic lymph nodes. - d/c with rx for hydrocodone, prednisone 10 mg qd [facility] GI Workup: 11/2008 - EGD - Irregular Z-line at 38cm from incisors, suspicious for short segm ent Oh's esophagus - biopsy negative for Oh's, did reveal moderate chr onic inflammation. The stomach appeared to be normal. The duodenum appeared to b e normal. 11/2008 - COLON - normal TI and colon mucosa. widely patent end to side ileocolon ic anastomosis with 2 small ulcers - small intestinal mucosa, anastamosis, biops y: Active inflammatory bowel disease with marked acute and chronicinflammation, cryptitis, crypt abscess, glandular regeneration and acute inflammatory exudate. There is no evidence of granulomas, dysplasia or malignancy. 01/2012 - TPMT - 28.9. 02/2012 - COLON - poor prep - widely patent anastomosis in right colon, small bow el intubated w/o resistance, several deep apthous ulcers noted proximal to anast omosis, round and discrete. Biopsies revealed ulceration with fibrinopurulent exudate and focal crypt distortion c/w Crohn's disease, negative for dysplasia. Colonic mucosa showed mild nonspecific diffuse erythematous change, NOT friable. Random biopsies normal. Small external hemorrhoidal tags noted. 06/2014 - COLON - An enterocolonic anastamosis was identified. This was mildly na rrowed, but could be intubated without resistance. Multiple apthous ulcers were noted throughout the ileum. The colon was completely normal in appea rosalba. Small, external, hemorhoidal tags were noted. 05/21/16 - COLON - The colon (entire examined portion) appeared normal. Diffuse i nflammation, severe in severity and characterized by erosions and linear erosion s was found in the distal ileum. Non-bleeding external hemorrhoids were found du ring perianal exam. The hemorrhoids were moderate. 05/21/16 - EGD - One 5 mm polyp with no bleeding was found 18 cm from the incisor s. The polyp was removed with a cold biopsy forceps. Resection and retrieval wer e complete. Pathology - squamous papilloma. The entire examined stomach was norm al. The examined duodenum was normal. Review of Systems Constitutional: Positive for appetite change, fatigue and unexpected weight herrera ge. Negative for fever and chills. HENT: Positive for congestion, ear pain and sore throat. Negative for drooling, trouble swallowing and voice change. Eyes: Positive for photophobia. Respiratory: Positive for cough. Negative for choking. Cardiovascular: Negative for chest pain. Gastrointestinal: Positive for nausea, abdominal pain and diarrhea. Negative for vomiting, constipation, blood in stool, abdominal distention, anal bleeding and rectal pain. Genitourinary: Negative for flank pain. Musculoskeletal: Negative for back pain. Skin: Negative for rash. Neurological: Negative for headaches. Hematological: Negative for adenopathy. All other systems reviewed and are negative. [...] Tabs by mouth daily with breakfas t. Lot [id number] Exp 11/[address](+) (PRILOSEC) 40 mg capsule Take 1 Cap by mouth daily before b reakfast. Sodium,Potassium,&Mag Sulfates 17.5-3.13-1.6 gram solr Take 2 Bottles by mouth as directed. For split dose colonoscopy prep. Filed Vitals: 07/03/16 1402 BP: 137/98 Pulse: 61 Temp: 36.4 C (97.5 F) TempSrc: Oral Height: 160 cm (63") Weight: 76.658 kg (169 lb) Body mass index is 29.94 kg/(m^2). Results for YOSSI BLANDON ( ) as of 07/03/2016 14:12 Ref. Range 05/19/2016 15:16 Hemoglobin Latest Ref Range: 12.0-15.0 GM/DL 14.0 Hematocrit Latest Ref Range: 36-45 % 41.7 Platelet Count Latest Ref Range: 150-400 K/UL 388 White Blood Cells Latest Ref Range: 4.5-11.0 K/UL 9.1 RBC Latest Ref Range: 4.0-5.0 M/UL 4.52 MCV Latest Ref Range: 80-100 FL 92.3 MCH Latest Ref Range: 26-34 PG 31.0 MCHC Latest Ref Range: 32.0-36.0 G/DL 33.6 MPV Latest Ref Range: 7-11 FL 7.2 RDW Latest Ref Range: 11-15 % 14.3 Vitamin B12 Latest Ref Range: 180-914 PG/ML 228 Iron Latest Ref Range: 50-160 MCG/DL 69 % Saturation Latest Ref Range: 28-42 % 15 (L) Iron Binding-TIBC Latest Ref Range: 270-380 MCG/DL 466 (H) Ferritin Latest Ref Range: 10-200 NG/ML 97 C-Reactive Protein Latest Ref Range: <1.0 MG/DL 0.24 Sodium Latest Ref Range: 137-147 MMOL/L 143 Potassium Latest Ref Range: 3.5-5.1 MMOL/L 3.1 (L) Chloride Latest Ref Range: 98-110 MMOL/L 106 CO2 Latest Ref Range: 21-30 MMOL/L 29 Anion Gap Latest Ref Range: 3-12 8 Blood Urea Nitrogen Latest Ref Range: 7-25 MG/DL 5 (L) Creatinine Latest Ref Range: 0.4-1.00 MG/DL 0.74 eGFR Non Latest Ref Range: >60 mL/min >60 eGFR Latest Ref Range: >60 mL/min >60 Glucose Latest Ref Range: 70-100 MG/DL 93 Albumin Latest Ref Range: 3.5-5.0 G/DL 4.2 Calcium Latest Ref Range: 8.5-10.6 MG/DL 10.0 Total Bilirubin Latest Ref Range: 0.3-1.2 MG/DL 0.4 Total Protein Latest Ref Range: 6.0-8.0 G/DL 7.3 AST (SGOT) Latest Ref Range: 7-40 U/L 18 ALT (SGPT) Latest Ref Range: 7-56 U/L 21 Alk Phosphatase Latest Ref Range: 25-110 U/L 85 Vitamin D(25-OH)Total Latest Ref Range: 30-80 NG/ML 23.8 (L) Results for YOSSI BLANDON ( ) as of 07/03/2016 14:12 Ref. Range 05/19/2016 16:02 Battery Name Unknown C DIFFICILE PCR Specimen Description Unknown FECES Special Requests Unknown NONE C. Difficile Toxin B PCR Unknown NEGATIVE-wait 7 d... Report Status Unknown FINAL... Physical Exam Constitutional: She is oriented to person, place, and time. She appears well-dev eloped and well-nourished. No distress. HENT: Head: Normocephalic and atraumatic. Mouth/Throat: Oropharynx is clear and moist. Eyes: Conjunctivae are normal. Pupils are equal, round, and reactive to light. N o scleral icterus. Neck: Normal range of motion. Neck supple. No thyromegaly present. Cardiovascular: Normal rate, regular rhythm, normal heart sounds and intact dist al pulses. No murmur heard. Pulmonary/Chest: Effort normal and breath sounds normal. No respiratory distress . Abdominal: Soft. Bowel sounds are normal. She exhibits no distension and no mass . There is tenderness. There is no rebound and no guarding. mild generalized tenderness Musculoskeletal: Normal range of motion. She exhibits no edema. Lymphadenopathy: She has no cervical adenopathy. Neurological: She is alert and oriented to person, place, and time. Coordination normal. Skin: Skin is warm and dry. No rash noted. She is not diaphoretic. Psychiatric: Judgment and thought content normal. patient angry, tearful at times, yelling at times Vitals reviewed. Assessment and Plan: 1. Abdominal pain and nausea - history of h/o ileocolonic Crohn's disease and a long history of medical compliance. She has been intolerant to multiple classe s of medications - including hives with Remicade and 6MP - SOA and rash. Asacol, Pentasa, Lialda not helpful. Never been on azathioprine, Humira or Cimzia. Does not like/tolerate Uceris or budesonide. She has had multiple ED visits and an admission in [place] since 01/2016 - 77 pages of records reviewed and summarized below. Was treated multiple times with prednisone, Cipro, Flagyl. Stool for C. d iff in 03/2016 was negative. Multiple outside CT's done several times - all showe d bowel wall thickening to remaining portion of the colon and more prominent in the distal ileum proximal to the ileocolonic anastomosis - slightly improved wit h last CT on 04/20/16. Recent EGD unremarkable, colonoscopy revealed ileitis. Has been off prednisone all prednisone since 04/2016. Currently on Entocort 9 mg qd with NO change in GI symptoms. Was on Pentasa 1 bid with no symptom improvement - any higher dose than 1 gm per day leads to constipation. 2. GERD. Reports significant reflux, frequent acid reflux into throat, recent EG D with no esophagitis, doing better on omeprazole 40 mg qd. 3. Vitamin D deficiency. Recent Vit D 23.8, states she can not afford copay of $ 11. Plan: 1. Discussed the colonoscopy results and plan of care with Dr. Odonnell who sugges valeri MRE to evaluate extent of ileitis and again, no Crohn's disease treatment wi ll be initiated until she has consistently been off tobacco. She was also advise d to continue budesonide 9 mg qd for now until after MRE results reviewed. She w as given support group options at the last OV but has not sought help through a group or her PCP. She also has reported in the past that she can not come to for infusions and has not been reliable in the past to have routine lab work so not a good candidate for immunomodulator therapy. I discussed the plan with the patient as recommended by Dr. Odonnell - she became very angry, yelling, insisting to be started on Crohn's disease medications today. I explained to her Dr. Choi no recommendations, have testing as he recommends, and we would make follow up O V for her with Dr. Odonnell to discuss further treatment. MRE orders placed in sys tem - patient left the clinic without instructions and without scheduling MRE. 2. She was encouraged to continue omeprazole 40 mg qd. 3. Encouraged to take rx vitamin D as prescribed, if unable to get it filled sta rt OTC 2,000 units per day. Total face to face time spent with patient: 40 minutes with >50% of that time spent counseling the patient on medications, recent study results discussed in detail, differential diagnosis, and options regarding the plan of care. Thank you for allowing me to see your patient in the office today. Please feel f ree to contact me if you have any questions or concerns. documented in this encounter Plan of Treatment Order Schedule Name Type Priority Associated Diagnoses Expected: 07/03/2016 (Approximate), Expires: 07/03/2017 MRI ABD WO/W CONTRAST Imaging Routine Crohn's disease with complication, unspecified gastrointestinal tract location (HCC) Abdominal pain, unspecified location Expected: 07/03/2016 (Approximate), Expires: 07/03/2017 MRI PELVIS WO/W CONTRAST Imaging Routine Crohn's disease with complication, unspecified gastrointestinal tract location (HCC) Abdominal pain, unspecified location documented as of this encounter Visit Diagnoses Diagnosis Crohn's disease with complication, unspecified gastrointestinal tract location (HCC) - Primary Abdominal pain, unspecified location Vitamin D deficiency Unspecified vitamin D deficiency documented in this encounter
--- OUTSIDE RECORDS SUMMARY | 2019-04-12 23:06 | XMS REPORT | Encounter Summary ---
Author Author [facility] Organization [facility] Address Unknown Phone Unavailable Care Team Providers Care C S S Representative Name Role Phone Barber Nguyen MD Unavailable Naveed Lockhart DO PCP Mychart, Generic Provider Unavailable Unavailable Mary Gomez Unavailable Unavailable Loreta Mcfadden Unavailable Encounter Details Care Team Description Date Type Department Moncho Odonnell MD [address] [facility] [address] [place] [address] 05/21/2016 Endo Rslt Enc [facility] Physicians - Internal Medicine [address] MED OFFICE [address] [place] [address] Social History Date Tobacco Use [...] Comments Procedure Name Priority Date/Time Associated Diagnosis EGD REPORT 05/21/2016 7:36 AM CDT documented in this encounter Results * EGD (05/21/2016 7:36 AM CDT) Provation Patient Name: Karrie HALL OTHER Report Procedure Date: 05/21/2016 7:36 RESULTS AM CSN: [id number] Date of : 1980 Gender: Female Attending Physician: Moncho Odonnell MD Procedure: Upper GI endoscopy Indications: Crohn's disease Providers: Moncho Odonnell MD (Doctor), Marii Francisco RN (Nurse), Usamn Curtis, Management Aide (Management Aide) Referring Physician: Moncho Odonnell MD Medications: Monitored Anesthesia Care Complications: No immediate complications. Findings: One 5 mm polyp with no bleeding was found 18 cm from the incisors. The polyp was removed with a cold biopsy forceps. Resection and retrieval were complete. The entire examined stomach was normal. The examined duodenum was normal. Impression: - Esophageal polyp(s) were found. Resected and retrieved. - Normal stomach. - Normal examined duodenum. Estimated Blood Loss: Estimated blood loss: none. Recommendation: - Patient has a contact number available for emergencies. The signs and symptoms of potential delayed complications were discussed with the patient. Return to normal activities tomorrow. Written discharge instructions were provided to the patient. - Resume previous diet. - Continue present medications. - Await pathology results. Scope In: 7:51:56 AM Scope Out: 7:56:05 AM Total Procedure Duration Time 0 hours 4 minutes 9 seconds Procedure Code(s): --- Professional --- 76566, Esophagogastroduodenoscopy, flexible, transoral; with biopsy, single or multiple Diagnosis Code(s): --- Professional --- K50.90, Crohn's disease, unspecified, without complications K22.8, Other specified diseases of esophagus CPT copyright 2015 [employer] [place] [employer]. All rights reserved. The codes documented in this report are preliminary and upon upper leather sorter review may be revised to meet current compliance requirements. Attending Participation: I personally performed the entire procedure. MD Moncho Polanco MD 05/21/2016 8:24:28 AM The attending physician has electronically signed and finalized this document. Number of Addenda: 0 Note Initiated On: 05/21/2016 7:36 AM Specimen Performing Organization Address City/State/Zipcode Phone Number [facility] OTHER RESULTS documented in this encounter Visit Diagnoses Not on filedocumented in this encounter
--- OUTSIDE RECORDS SUMMARY | 2019-04-12 23:06 | XMS REPORT | Encounter Summary ---
Author Author [facility] Organization [facility] Address Unknown Phone Unavailable Care Team Providers Care Zoology Technical Officer Name Role Phone Barber Nguyen MD Unavailable Naveed Lockhart DO PCP Mychart, Generic Provider Unavailable Unavailable Mary Gomez Unavailable Unavailable Loreta Mcfadden Unavailable Reason for Visit * Reason Comments Results Encounter Details Care Team Description Date Type Department Moncho Odonnell MD [address] [facility] [place] [address] [place] [address] Results 05/21/2016 Telephone [facility] - Internal Medicine [address] [place] [address] Social History Date Tobacco Use [...] Telephone Encounter - Parris Ramirez RN - 05/22/2016 4:07 PM CDT Patient aware of Dr. Odonnell's recommendations. Patient states had already spoke with Maya today regarding recommendations. Unable to see Vitamin D3 50,000 units on medication list and therefore, will enter onto list and e-scribe [facility]. * Telephone Encounter - Parris Ramirez RN - 05/21/2016 4:40 PM CDT Unable to make direct telephone contact with patient to review Dr. Odonnell's ento colin 3mg dosing recommendations. Did send prescription to patient's pharmacy. Left message that can see Sarai had too attempted to contact patient for Loreta's additional recommendations. Asked for patient to call our office back. * Telephone Encounter - Sarai Moya LPN - 05/21/2016 4:09 PM CDT Attemtped to contact pt. LVM to return call to review both results below. Notes Recorded by STEVIE Schmidt on 05/20/2016 at 1:36 PM Call pt and let her know results. C. diff negative. Vit D low - start 50,000 uni ts Vitamin D, take once a week for 8 weeks, then start OTC Vitamin D3 1,000 unit s per day. Recheck Vitamin D level in 12 weeks. Also, potassium low - encourage K+ rich foods - have repeat K+ 1-2 weeks- can do with PCP - go to PCP or ER if d evelop CP, palpitations, muscles cramping, etc. * Telephone Encounter - Moncho Odonnell MD - 05/21/2016 1:27 PM CDT Please call in Rx for: Entocort 3mg Take 3 PO q day x 8 weeks, then 2 PO q day x 1 week, then 1 PO q day x 1 week. T hen stop Disp as above No refills Schedule a RTC visit in one-two months, to see Loreta or myself. documented in this encounter Plan of Treatment Not on filedocumented as of this encounter Visit Diagnoses Not on filedocumented in this encounter
--- OUTSIDE RECORDS SUMMARY | 2019-04-12 23:07 | XMS REPORT | Encounter Summary ---
Author Author [facility] Organization [facility] Address Unknown Phone Unavailable Care Team Providers Care Wellness Trainer Name Role Phone Barber Nguyen MD Unavailable Naveed Lockhart DO PCP Mychart, Generic Provider Unavailable Unavailable Mary Gomez Unavailable Unavailable Loreta Mcfadden Unavailable Reason for Visit * Auth/Cert Referred By Contact Referred To Contact Status Reason Specialty Diagnoses / Procedures [facility] [address] [place] [address] Diagnoses Crohn disease (HCC) GERD (gastroesophageal reflux disease) Procedures COLONOSCOPY ESOPHAGOGASTRODUOD ENOSCOPY Encounter Details Care Team Description Date Type Department Syeda Odonnell MD [address] [facility] [place] [address] [phone] COLONOSCOPY 05/21/2016 Surgery [facility] [address] [place] [address] Social History Date Tobacco Use Types Packs/Day [...] Signs Reading Time Taken Comments Vital Sign 107/78 05/21/2016 8:39 AM CDT Blood Pressure 75 05/21/2016 8:39 AM CDT Pulse 36.3 C (97.3 F) 05/21/2016 8:15 AM CDT Temperature - - Respiratory Rate 99% 05/21/2016 8:39 AM CDT Oxygen Saturation - - Inhaled Oxygen Concentration 75.8 kg (167 lb) 05/21/2016 7:28 AM CDT Weight 160 cm (5' 3") 05/21/2016 7:28 AM CDT Height 29.58 05/21/2016 7:28 AM CDT Body Mass Index documented in this encounter Medications at Time of Discharge Start Date End Date Medication Sig Dispensed Refills HYDROcodone/acetaminophen Take 1 Tab by 0 (NORCO; VICODIN) 5-325 mg mouth every 6 tablet hours as needed. LORATADINE (CLARITIN PO) Take by 0 mouth. 05/19/2016 Sodium,Potassium,&Mag Take 2 354 mL 0 Sulfates 17.5-3.13-1.6 Bottles by gram solrIndications: mouth as Crohn's disease with directed. For complication, unspecified split dose gastrointestinal tract colonoscopy location (HCC), prep. Gastroesophageal reflux disease, esophagitis presence not specified 05/22/2016 cholecalciferol(+) Take 50,000 0 (Vitamin D3) 50,000 units Units by capsuleIndications: mouth every 7 Vitamin D Deficiency days. For 8 (High Dose Therapy) weeks and then OTC Vitamin D3 1000units by mouth daily thereafter. Check lab in 12 weeks. Indications: VITAMIN D DEFICIENCY (HIGH DOSE THERAPY) 05/22/2016 04/10/2017 cholecalciferol(+) Take 1 Cap by 8 Cap 0 (Vitamin D3) 50,000 units mouth every 7 capsule days. 8 weeks,then OTC Vit D3 1000units by mouth daily thereafter. Check lab in 12 weeks. 03/20/2015 07/28/2016 Mesalamine (LIALDA) 1.2 Take 4 Tabs 240 Tab 0 gram tablet by mouth daily with breakfast. Lot [id number] 11/201605/22/2016 11/08/[address](+) Take 1 Cap by 30 Cap 3 (PRILOSEC) 40 mg capsule mouth daily before breakfast. 05/19/2016 05/22/[address](+) Take 1 Cap by 60 Cap 3 (PRILOSEC) 40 mg mouth twice capsuleIndications: daily before Crohn's disease with meals. complication, unspecified gastrointestinal tract location (HCC), Gastroesophageal reflux disease, esophagitis presence not specified documented as of this encounter H&P Notes * Syeda Odonnell MD - 05/21/2016 7:35 AM CDT Pre Procedure History and Physical/Sedation Plan Date of Procedure: 05/21/2016 Planned Procedure(s): GI: Colonoscopy and EGD Sedation/Medication Plan: MAC (Monitored Anesthesia Care) Discussion/Reviews: Physician has discussed risks and alternatives of this type of sedation and above planned procedures with patient Chief Complaint: Crohn's disease History of Present Illness: Mady Blandon is a 36 y.o. female here for evaluation of Crohn's flare. Previous Anesthetic/Sedation History: n/a Past Medical History Diagnosis Date Crohn's disease (HCC) Abdominal pain Neoplasm of unspecified nature, site unspecified Symptoms involving digestive system Asthma Past Surgical History Procedure Laterality Date Hx section Hx small bowel resection Hx cholecystectomy Pertinent medical/surgical history reviewed Pertinent family history reviewed Social History Substance Use Topics Smoking status: Current Every Day Smoker -- 0.50 packs/day for 11 years Types: Cigarettes Smokeless tobacco: Not on file Alcohol Use: No History Drug Use No Allergies: Nsaids (non-steroidal anti-inflammatory drug) and Pcn Medications No current facility-administered medications for this encounter. Review of Systems: A 14 point review of systems was negative except for: that discussed in HPI Physical Exam: General appearance: alert and cooperative Throat: Lips, mucosa, and tongue normal. Teeth and gums normal Lungs: clear to auscultation bilaterally Heart: regular rate and rhythm, S1, S2 normal, no murmur, click, rub or gallop Abdomen: soft, non-tender. Bowel sounds normal. No masses, no organomegaly Extremities: extremities normal, atraumatic, no cyanosis or edema NPO Status: Airway: airway assessment performed Anesthesia Classification: ASA III (A patient with a severe systemic disease th at limits activity, but is not incapacitating) Lab/Radiology/Other Diagnostic Tests Labs: No pertinent labs Syeda Odonnell MD Pager documented in this encounter Plan of Treatment Order Schedule Name Type Priority Associated Diagnoses ONCE for 1 Occurrences starting 05/21/2016 SURGICAL PATHOLOGY Pathology Routine documented as of this encounter Procedures Comments Procedure Name Priority Date/Time Associated Diagnosis PROCEDURES-SCAN 05/24/2016 10:12 AM CDT SURGICAL PATHOLOGY 05/21/2016 9:46 AM CDT ESOPHAGOGASTRODUODENOSCOP 05/21/2016 Crohn disease (HCC) Y BIOPSY 7:50 AM CDT GERD (gastroesophageal reflux disease) ESOPHAGOGASTRODUODENOSCOP 05/21/2016 Crohn disease (HCC) Y 7:50 AM CDT GERD (gastroesophageal reflux disease) COLONOSCOPY 05/21/2016 Crohn disease (HCC) 7:50 AM CDT GERD (gastroesophageal reflux disease) documented in this encounter Results * PROCEDURES-SCAN (05/24/2016 10:12 AM CDT) Narrative Performed At Ordered by an unspecified provider. * SURGICAL PATHOLOGY (05/21/2016 9:46 AM CDT) PATHOLOGY [facility] RES[facility] REPORT [facility] [email or web address] Nesha Chopra MD, PhD, Director Anatomic Pathology Department of Pathology and Laboratory Medicine [address] [place] [id number] Surgical Pathology Office:[phone] :[phone] SURGICAL PATHOLOGY REPORT NAME: MADY BLANDON ANNAVERE SURG PATH #: [id number] MR #: [id number] SPECIMEN CLASS: SR BILLING #: [id number] ALT ID #:LOCATION: GIEND DATE OF PROCEDURE: 05/21/2016 AGE:36 SEX: F DATE RECEIVED: 05/21/2016 : 1980TIME RECEIVED:09:46 PHYSICIAN: SYEDA SEGURA DATE OF REPORT: 05/22/2016 COPY TO:DATE OF PRINTIN05/22/2016 ############################## ############################## ############ Final Diagnosis: A. Squamous mucosa, "esophageal polyp", biopsy: Squamous papilloma. Attestation: By this signature, I attest that I have personally formulated the final interpretation expressed in this report and that the above diagnosis is based upon my examination of the slides and/or other material indicated in this report. +++Electronically Signed Out By+++ ia05/21/2016 Interpreted by: Sydnie Vazquez MD, Attending Physician Dianelys Castro D.O. Resident 05/22/2016 ############################## ############################## ############ Material Received: A: esophageal polyp History: 36-year-old female with a clinical history of Crohn's disease, gastroesophageal reflux disease. A. Rule out papilloma. Gross Description: A. Received in formalin labeled "biopsy esophageal polyp" is a 0.3 x 0.2 x 0.2 cm aggregate of banks-brown soft tissue fragments. The specimen is entirely submitted in cassette A1.(jrz) ia05/21/2016Tiffa jose guadalupe Castro D.O. Resident Specimen Performing Organization Address City/State/Zipcode Phone Number [facility] RESULTS documented in this encounter Visit Diagnoses Diagnosis Crohn disease (HCC) Regional enteritis of unspecified site GERD (gastroesophageal reflux disease) Esophageal reflux documented in this encounter Administered Medications Action Date Dose Rate Site Medication Order MAR Action 05/21/2016 9:00 AM CDT 50 mcg fentaNYL citrate PF (SUBLIMAZE) Given injection 25-50 mcg 25-50 mcg, Intravenous, NEEDED, Starting Jacquelyn 05/21/16 at 0948, Until Jacquelyn 05/21/16 at 1203, Pain, give 25 to 50 mcg now and may repeat as needed up to maxof 200 mcg, NOTE: This is a HIGH ALERT Medication., GI Procedure Area Only 50 mcg Given 05/21/2016 8:50 AM CDT 05/21/2016 9:25 AM CDT 2 tablets oxyCODONE/acetaminophen (PERCOCET; Given ENDOCET; ROXICET) 5/325 mg tablet 2 Tab 2 tablet, Oral, ONCE PRN, 1 dose, Starting Jacquelyn 05/21/16 at 0925, Until Jacquelyn 05/21/16 at 0925, Pain, TOTAL ACETAMINOPHEN DOSE NOT TO EXCEED 4GM DAILY NOTE: This is a HIGH ALERT Medication., PACU (only) 05/21/2016 7:16 AM CDT 1,000 mL sodium chloride 0.9 % infusion Given - New 1,000 mL, 1,000 mL, Intravenous, ONCE, 1 Bag dose, Jacquelyn 05/21/16 at 0715, Pre-Op documented in this encounter
--- OUTSIDE RECORDS SUMMARY | 2019-04-12 23:07 | XMS REPORT | Encounter Summary ---
Author Author [facility] Organization [facility] Address Unknown Phone Unavailable Care Team Providers Care Peanut Shaker Name Role Phone Barber Nguyen MD Unavailable Naveed Lockhart DO PCP Mychart, Generic Provider Unavailable Unavailable Mary Gomez Unavailable Unavailable Loreta Mcfadden Unavailable Reason for Visit * Reason Comments General Question Nicotine Dependence Encounter Details Care Team Description Date Type Department Loreta Mcfadden, STEVIE [address] [place] [address] General Question; Nicotine Dependence 05/20/2016 Telephone [facility] Phys[facility] - Internal Medicine [address] [facility] [address] [place] [address] Social History Date Tobacco Use [...] encounter Miscellaneous Notes * Telephone Encounter - aSrai Moya LPN - 05/20/2016 12:01 PM CDT Spoke to pt. Relayed recommendations; pt verbalized understanding and states she will speak with Dr. Odonnell after procedure tomorrow regarding this further. * Telephone Encounter - Sarai Moya LPN - 05/20/2016 9:14 AM CDT Recieved VM from pt wanting to know if she may use e-cigarettes while she is steph tting smoking. Routing to Dr. Odonnell and Loreta to advise on use of vapor cigarettes as quitting aid. Pt states she currently smokes 10 cigarettes a day. documented in this encounter Plan of Treatment Not on filedocumented as of this encounter Visit Diagnoses Not on filedocumented in this encounter
--- OUTSIDE RECORDS SUMMARY | 2019-04-12 23:07 | XMS REPORT | Encounter Summary ---
Author Author [facility] Organization [facility] Address Unknown Phone Unavailable Care Team Providers Care Mechanical Service Technician Name Role Phone Barber Nguyen MD Unavailable Naveed Lockhart DO PCP Mychart, Generic Provider Unavailable Unavailable Mary Gomez Unavailable Unavailable Loreta Mcfadden Unavailable Reason for Visit * Auth/Cert Referred By Contact Referred To Contact Status Reason Specialty Diagnoses / Procedures [facility] [address] [place] [address] Diagnoses Crohn disease (HCC) GERD (gastroesophageal reflux disease) Procedures COLONOSCOPY ESOPHAGOGASTRODUOD ENOSCOPY Encounter Details Care Team Description Date [place] [address] [address] Crohn disease (HCC) 05/21/2016 [facility] En[facility] [address] [place] [address] Social History Date Tobacco Use Types Packs/Day [...] tablet by mouth daily with breakfast. Lot [id number] 11/201605/22/2016 11/08/[address](+) Take 1 [...] Complaint: Crohn's disease History of Present Illness: Yossi Blandon is a 36 y.o. female here [...] PATHOLOGY (05/21/2016 9:46 AM CDT) PATHOLOGY [facility] LAB RESULTS REPORT HOSP[facility] [email or web address] Nesha Chopra MD, PhD, Director Anatomic Pathology Department of Pathology and Laboratory Medicine [address] [place] [id number] Surgical Pathology Office:[phone] :[phone] SURGICAL PATHOLOGY REPORT NAME: YOSSI BLANDON ANNAVERE SURG PATH #: [id number] MR #: [id number] SPECIMEN CLASS: SR BILLING #: [id number] ALT ID #:LOCATION: END DATE OF PROCEDURE: 05/21/2016 AGE:36 SEX: F [...] in this report. +++Electronically Signed Out By+++ 05/21/2016 Interpreted by: Sydnie Vazquez MD, Attending Physician [...] specimen is entirely submitted in cassette A1.(jrz) 05/21/2016Tiffa jose guadalupe Castro D.O. Resident Specimen Performing [...]
--- OUTSIDE RECORDS SUMMARY | 2019-04-12 23:07 | XMS REPORT | Encounter Summary ---
Author Author [facility] Organization [facility] Address Unknown Phone Unavailable Care Team Providers Care Bookseamer Blindstitch Name Role Phone Barber Nguyen MD Unavailable Naveed Lockhart DO PCP Mychart, Generic Provider Unavailable Unavailable Mary Gomez Unavailable Unavailable Loreta Mcfadden Unavailable Reason for Visit * Reason Comments Crohn's Disease Encounter Details Care Team Description Date Type Department Loreta Mcfadden ARNP [address] [facility] [place] [address] [place] [address] Crohn's disease with complication, unspecified gastrointestinal tract location (HCC) (Primary Dx); Gastroesophageal reflux disease, esophagitis presence not specified; Melena 05/19/2016 Office Visit [facility] - Internal Medicine [address] [facility] MED OFFICE [address]LDG [address] [address] Social History Date Tobacco Use [...] Signs Reading Time Taken Comments Vital Sign 113/89 05/19/2016 1:19 PM CDT Blood Pressure 76 05/19/2016 1:19 PM CDT Pulse 36.7 C (98.1 F) 05/19/2016 1:19 PM CDT Temperature 18 05/19/2016 1:19 PM CDT Respiratory Rate - - Oxygen Saturation - - Inhaled Oxygen Concentration 75.3 kg (166 lb) 05/19/2016 1:19 PM CDT Weight 162.6 cm (5' 4") 05/19/2016 1:19 PM CDT Height 28.49 05/19/2016 1:19 PM CDT Body Mass Index documented in this encounter Patient Instructions * Patient Instructions* Sarai Moya LPN - 05/19/2016 2:40 PM CDT 1) A colonoscopy and EGD have been ordered for you. And a prescription for a col on prep has been sent to your pharmacy and you have been provided written prep i nstructions. The GI Scheduling department will contact you to arrange this. If you have not heard from scheduling within 5 business days or need to reschedule your procedure please call [phone]. 2) Stool studies have been ordered for you to evaluate for infection. You may pi ck up collection supplies at the lab today. Please remember only to turn in spec imen if you have liquid stool otherwise the test will be canceled. 3) A prescription has been sent for your omeprazole 40mg, please take this twice daily 30 minutes before your morning and evening meals. Resources for Patients to Quit Smoking If you live outside of [place] or [place] National Quit line: 3-323-FEPR-NOW ( ) This line will route you to your state sponsored quit line based on your calling area. The website for the national quit line is: www.smokefree.gov For [place] residents: [place] Dept of Health & Environment KanQuit program (1-272-BKMH-NOW or ) http://www.LiveNinjaks.gov/tobacco/cessation.html Free program 24hrs per day 7 days per week. Danish, Mozambican, & 150 other languages. [place] Quit line: 5-791-DYS-STOP ( ) http://www.Addowaytask.org/quitline.html Free program available 24 hrs per day 7 days per week. Information is available via phone or online. Phone assessment by trained counselor to help identify trig gers and set goals, smoker can call as many times as desired. For [place] residents [place] quit line website: http://health.ar.[facility]/living/wellness/tobacco/smokingandtobacco/ link directly to the [place] quit line patient brochure: http://health.ar.gov/living/wellness/tobacco/smokingandtobacco/pdf/QuitlineFactS heet2.pdf documented in this encounter Progress Notes * Loreta Mcfadden ARNP - 05/19/2016 1:23 PM CDT Date of Service: 05/19/2016 Subjective: Mady Yoon is a 36 y.o. female. History of Present Illness Mady is a pleasant 36 yo female who [...] at 9mg per day. 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 3. Stop smoking and discu ss options to aid in smoking cessation with her primary care physician. 4. RTC i n four months Here for a follow up OV. Has been unable to come in to be seen by Dr. Odonnell sin ce 12/2014 due to transportation issues and having to frequently reschedule appoi ntments. She has had multiple ED visits and an admission in [place] since 01/2016 - 77 pages of records reviewed and summarized below. Was treated multiple times with prednisone, Cipro, Flagyl. Stool for C. diff in 03/[address] A/P was done several times - all showed bowel wall thickening to remaining portion of the colon and more prominent in the distal ileum proximal to the ileocolonic anastomosis - slightly improved with last CT on 04/20/16. No ED visits or admissi ons since late 03/2016. No EGD or colonoscopy exams were done. Still has chronic RLQ pain since 1st surgery for Crohn's disease, constant but s everity will vary. Pain is worse 5-10 minutes after eating or drinking. Varying degrees of nausea daily, rarely vomits. Current bowel pattern is 5-6, loose to w atery stools per day (BSFS type 6-7), reports BRB in stools when admitted in 03/26 016. Currently, blood in stools daily. Melenic stools every other day, going on many months. No fever or chills. + fatigue. Poor appetite, has to force self to eat. Weight goes up and down by 10#. Off prednisone completely for ~ 4weeks. Her normal bowel pattern since Crohn's disease surgery is 5-6 loose stools per day (BSFS Type 5). Since in ER in 03/2016 is taking Pentasa 500 mg 2 po qd, anymore t berger that causes her constipation. Frequent acid reflux into throat, not taking a ny medication now. Some improvement omeprazole qd in the past. She denies any od ynophagia, dysphagia, constipation, hematemesis, or weight loss. No colonoscopy since 06/2014 and no EGD since 2008. No recent MRE, CTE, or SBCE. mild improvement of abdominal pain with hyoscyamine, hydrocodone also not real h elpful. No history of fistula. Has been off all Crohn's disease meds for 2 years . In 2013 was on Lialda, stopped getting covered by her insurance and not helpfu l. Asacol, Pentasa, Lialda not helpful. Remicade led to hives. Has been on 6MP i n the past - thinks she had problems taking it - SOB and rash. Never been on aza thioprine. Never on Humira or Cimzia. Does not like/tolerate Uceris or budesonid e. No history of C. diff. Still smokes ~10 cigarettes per day. She states she had f ollowed up with her PCP for smoking cessation - reports nicotine patches don't w ork nor does Wellbutrin or Chantix. Received and reviewed 77 pages of outside records from [facility] in [place], [place] from multiple ED visits and an admission - summarized below. 02/01/16 - ED visit - seen for [...] and discrete. Biopsies revealed ulceration with fibrinopurulent e xudate and focal crypt distortion c/w Crohn's disease, negative for dysplasia. C olonic mucosa showed mild nonspecific diffuse erythematous change, NOT friable. Random biopsies normal. Small external hemorrhoidal tags noted. 06/2014 - COLON - An enterocolonic anastamosis was identified. This was mildly na rrowed, but could be intubated without resistance. Multiple apthous ulcers were noted throughout the ileum. The colon was completely normal in appea rosalba. Small, external, hemorhoidal tags were noted. Review of Systems Constitutional: Positive for diaphoresis, appetite change, fatigue and unexpecte d weight change. Negative for fever and chills. Ebola Screen Neg. HENT: Negative for drooling, sore throat, trouble swallowing and voice change. Respiratory: Positive for shortness of breath. Negative for cough and choking. Cardiovascular: Negative for chest pain. Gastrointestinal: Positive for nausea, vomiting, abdominal pain, diarrhea, blood in stool, abdominal distention, anal bleeding and rectal pain. Negative for con stipation. Genitourinary: Positive for vaginal pain. Negative for flank pain. Musculoskeletal: Negative for back pain. Skin: Negative for rash. Neurological: Positive for light-headedness and headaches. Hematological: Negative for adenopathy. Psychiatric/Behavioral: Positive for sleep disturbance and agitation. All other systems reviewed and are negative. Objective: budesonide (ENTOCORT EC) 3 mg capsule Take 3 Caps by mouth every morning. Fo r 4 months HYDROcodone/acetaminophen (NORCO; VICODIN) 5-325 mg tablet Take 1 Tab by keyana th every 6 hours as needed. LORATADINE (CLARITIN PO) Take by mouth. Mesalamine (LIALDA) 1.2 gram tablet Take 4 Tabs by mouth daily with breakfas t. Lot [id number] Exp 11/2016 Filed Vitals: 05/19/16 1319 BP: 113/89 Pulse: 76 Temp: 36.7 C (98.1 F) TempSrc: Oral Resp: 18 Height: 162.6 cm (64") Weight: 75.297 kg (166 lb) Body mass index is 28.48 kg/(m^2). Physical Exam Constitutional: She is oriented [...] There is no rebound and no guarding. mild/generalized tenderness, soft, not distended Musculoskeletal: Normal range of motion. She exhibits no edema. Lymphadenopathy: She has no cervical adenopathy. Neurological: She is alert and oriented to person, place, and time. Coordination normal. Skin: Skin is warm and dry. No rash noted. She is not diaphoretic. Psychiatric: She has a normal mood and affect. Her behavior is normal. Judgment and thought content normal. Vitals reviewed. Assessment and Plan: 1. Abdominal pain and nausea - history of h/o ileocolonic Crohn's disease and a long history of medical compliance. She has been intolerant to multiple classes of medications - including hives with Remicade and 6MP - SOA and rash. Asacol, Pentasa, Lialda not helpful. Never been on azathioprine, Humira or Cimzia. Does not like/tolerate Uceris or budesonide. She has had multiple ED visits and an a dmission in [place] since 01/2016 - 77 pages of records reviewed and summarized be low. Was treated multiple times with prednisone, Cipro, Flagyl. Stool for C. dif f in 03/[address] A/P was done several times - all showed bowel wall thickening to remaining portion of the colon and more prominent in the distal il eum proximal to the ileocolonic anastomosis - slightly improved with last CT on 04/20/16. No ED visits or admissions since late 03/2016. No EGD or colonoscopy exa ms were done. Has been off prednisone for ~4 weeks. Currently taking Pentasa but any higher dose than 1 gm per day leads to constipation. 2. GERD. Reports significant reflux, frequent acid reflux into throat, not takin g any medication now. Some improvement omeprazole qd in the past. 3. Intermittent melena for several months. Plan: 1. Dr. Odonnell visited with patient at length and again discussed importance of s moking cessation as a part of Crohn's disease management and how it can decrease effectiveness for any Crohn's disease treatment. She was advised to revisit with her PCP to discuss other options for smoking cessation - patient also provided support group information for this as well. 2. Need to restage disease - will order colonoscopy as well as EGD given severe GERD symptoms and reports of melena. 3. Start omeprazole 40 mg bid, take 30 minutes before AM/PM meals, strict antire flux precautions. 4. Continue Pentasa for now. 5. [facility] lab today - stool C. diff PCR, CBC, CMP, CRP, B12, Iron studies, Vit D. 6. She is to follow up with Dr. Odonnell in clinic in 6 weeks, call sooner as need ed. 7. Importance of treatment compliance also discussed in detail with patient - sh e voiced agreement and understanding. The plan of care was discussed with Dr. Odonnell who also visited with patient abrahan enamorado. Patient was advised of the plan and voiced agreement and understanding. Total face to face time spent with patient: 50 minutes with >50% of that time spent counseling the patient on medications, prior study results related to symptoms, differential diagnosis, and options regarding the plan of care. Thank you for allowing me to see your patient in the office today. Please feel f ree to contact me if you have any questions or concerns. documented in this encounter Plan of Treatment Not on filedocumented as of this encounter Results * C DIFFICILE BY PCR (05/19/2016 4:02 PM CDT) Battery Name C DIFFICILE PCR MAIN LAB Specimen FECES [facility] Description Special NONE MAIN LAB Requests C. difficile NEGATIVE-wait 7 days to repeat [facility] Toxin B PCR test Report Status FINAL [facility] 05/19/2016 Specimen Feces Performing Organization Address [facility] Phone Number [facility] [address] [place] [address] * FERRITIN (05/19/2016 3:16 PM CDT) Ferritin 97 10 - 200 NG/ML [facility] Specimen Blood Performing Organization Address [facility] Phone Number [facility] [address] [place] [address] * IRON + BINDING CAPACITY + %SAT (05/19/2016 3:16 PM CDT) Iron 69 50 - 160 MCG/DL [facility] Iron 466 (H) 270 - 380 MCG/DL [facility] Binding-TIBC % Saturation 15 (L) 28 - 42 % [facility] Specimen Blood Performing Organization Address [facility] Phone Number [facility] [address] [place] [address] * 25-OH VITAMIN D (D2 + D3) (05/19/2016 3:16 PM CDT) Vitamin 23.8 (L) 30 - 80 NG/ML [facility] D(25-OH)Total Specimen Blood Performing Organization Address [facility]/State/Zipcode Phone Number [facility] [address] [place] [address] * VITAMIN B12 (05/19/2016 3:16 PM CDT) Pathologist [facility] Vitamin B12 228 180 - 914 PG/ML [facility] Specimen Blood Performing Organization Address [facility] Phone Number [facility] [address] [place] [address] * C REACTIVE PROTEIN (CRP) (05/19/2016 3:16 PM CDT) Pathologist [facility] C-Reactive 0.24 <1.0 MG/DL [facility] Protein Specimen Blood Performing Organization Address City/[facility] Phone Number [facility] [address] [place] [address] * CBC (05/19/2016 3:16 PM CDT) Pathologist [facility] White Blood 9.1 4.5 - 11.0 K/UL [facility] Cells RBC 4.52 4.0 - 5.0 M/UL [facility] Hemoglobin 14.0 12.0 - 15.0 GM/DL [facility] Hematocrit 41.7 36 - 45 % [facility] MCV 92.3 80 - 100 FL [facility] MCH 31.0 26 - 34 PG [facility] MCHC 33.6 32.0 - 36.0 G/DL [facility] RDW 14.3 11 - 15 % [facility] Platelet Count 388 150 - 400 K/UL [facility] MPV 7.2 7 - 11 FL [facility] Specimen Blood Performing Organization Address [facility] Phone Number [facility] [address] [place] [address] * COMPREHENSIVE METABOLIC PANEL (05/19/2016 3:16 PM CDT) Pathologist [facility] Sodium 143 137 - 147 MMOL/L [facility] Potassium 3.1 (L) 3.5 - 5.1 MMOL/L [facility] Chloride 106 98 - 110 MMOL/L [facility] Glucose 93 70 - 100 MG/DL [facility] Blood Urea 5 (L) 7 - 25 MG/DL [facility] Nitrogen Creatinine 0.74 0.4 - 1.00 MG/DL [facility] Calcium 10.0 8.5 - 10.6 MG/DL [facility] Total Protein 7.3 6.0 - 8.0 G/DL [facility] Total Bilirubin 0.4 0.3 - 1.2 MG/DL [facility] Albumin 4.2 3.5 - 5.0 G/DL [facility] Alk Phosphatase 85 25 - 110 U/L [facility] AST (SGOT) 18 7 - 40 U/L [facility] CO2 29 21 - 30 MMOL/L [facility] ALT (SGPT) 21 7 - 56 U/L [facility] Anion Gap 8 3 - 12 [facility] eGFR Non >60 >60 mL/min [facility] Comment: Nigerian The eGFR is not validated for use in drug dosing adjustments.Continue to use estimated creatinine clearance per dosing reference text.Please contact the Clinical Pharmacist for questions. eGFR >60 >60 mL/min [facility] [place] Comment: The eGFR is not validated for use in drug dosing adjustments.Continue to use estimated creatinine clearance per dosing reference text.Please contact the Clinical Pharmacist for questions. Specimen Blood Performing Organization Address City/State/Zipcode Phone Number [facility] [address] [place] [address] documented in this encounter Visit Diagnoses Diagnosis Crohn's disease with complication, unspecified gastrointestinal tract location (HCC) - Primary Gastroesophageal reflux disease, esophagitis presence not specified Melena Blood in stool documented in this encounter
--- OUTSIDE RECORDS SUMMARY | 2019-04-12 23:07 | XMS REPORT | Encounter Summary ---
Author Author [facility] Organization [facility] Address Unknown Phone Unavailable Care Team Providers Care Shear Helper Name Role Phone Barber Nguyen MD Unavailable Navede Lockhart DO PCP Mychart, Generic Provider Unavailable Unavailable Mary Gomez Unavailable Unavailable Loreta Mcfadden Unavailable Encounter Details Care Team Description Date Type Department Loreta Mcfadden ARNP [address] [facility] [address] [place] [address] 05/19/2016 Prep for Case [facility] - Internal Medicine [address] MED OFFICE [address] [place] [address] Social History Date Tobacco Use [...]
--- OUTSIDE RECORDS SUMMARY | 2019-04-12 23:07 | XMS REPORT | Encounter Summary ---
Author Author [facility] Organization [facility] Address Unknown Phone Unavailable Care Team Providers Care Stretcher Helper Name Role Phone Barber Nguyen MD Unavailable Naveed Lockhart DO PCP Mychart, Generic Provider Unavailable Unavailable Mary Gomez Unavailable Unavailable Loreta Mcfadden Unavailable Encounter Details Care Team Description Date Type Department Loreta Mcfadden ARNP [address] [facility] [address] [place], [place] [id number] 05/12/2016 Documentation [facility] - Internal Medicine [address] [place] [address] Social History Date Tobacco Use Types Packs/Day Years Used Current Every Day Smoker Cigarettes 0.5 11 Drinks/Week oz/Week Comments Alcohol Use No Sex Assigned at Date Recorded Not on file Industry Job Start Date Occupation Not on file Not on file Not on file Travel End Travel History Travel Start No recent travel history available. documented as of this encounter Progress Notes * Loreta Mcfadden ARNP - 05/12/2016 9:38 AM CDT Received and reviewed 77 pages of outside records from [facility] in [place], [place] from multiple ED visits and an admission - summarized below. 02/01/16 - ED visit - seen for abdominal pain, N/V. Patient reported had been off all Crohn's disease medications due to insurance not covering them. - CMP, normal LFTs, albumin,normal Cr, Normal H/H, WBC 9.3, negative UA. - CT A/P with IV contrast - hepatic steatosis, abnormal wall thickening about d istal ileum and transverse colon, slight asymmetric wall [...] start doxycycline as previously prescribed by her PCP. 03/25/16 - ED visit - abdominal pain, blood in stool - normal CBC, repeat K+ 3.4, nml CMP, nml TSH 1.95, nml CBC, - CT A/P with IV contrast - bowel wall thickening seen to remaining portion of the colon and more prominent in the distal ileum proximal to the ileocolonic brown stomosis, similar to CT 01/2016, no abscess or pelvic fluid, + fat containing umb ilical hernia. - prescribed hydrocodone, Flagyl 500 mg tid for 7 days, Cipro 500 mg bid for 7 days, prednisone 40 mg qd for 3 days. 04/11/16 - ED visit - abdominal pain. - CBC, CMP normal. - prescribed Cipro 500 bid for 7 days, Flagyl 500 tid for days, hydrocodone, Le vsin prn, Mesalamine 1gm qid. 04/15/16-04/21/16 - Admission - abdominal pain. - negative stool for C. diff, culture, and O/P. + hemoccult, K+ on admission 3. 0 and WBC 11.6. - CRP 3.03. Normal LFTs, lipase, - CT A/P with IV contrast - 04/20/16 - moderate amount retained stool, improved inflammation proximal right colon, decreased fatty stranding and smaller mesente johnny lymph nodes. - d/c with rx for hydrocodone, prednisone 10 mg qd documented in this encounter Plan of Treatment Not on filedocumented as of this encounter Visit Diagnoses Not on filedocumented in this encounter
--- OUTSIDE RECORDS SUMMARY | 2019-04-12 23:07 | XMS REPORT | Encounter Summary ---
Author Author [facility] Organization [facility] Address Unknown Phone Unavailable Care Team Providers Care Public Transit Bus Driver Name Role Phone Barber Nguyen MD Unavailable Naveed Lockhart DO PCP Mychart, Generic Provider Unavailable Unavailable Mary Gomez Unavailable Unavailable Loreta Mcfadden Unavailable Encounter Details Care Team Description Date Type Department Loreta Mcfadden ARNP [address] Ortho/Med Pavilion [address]vl [address] [place] [address] [phone] Crohn's disease, unspecified, with unspecified complications (HCC) 05/19/2016 Hospital [facility] [address] [place] [id number] Social History Date Tobacco Use Types Packs/Day [...] Gastroesophageal reflux disease, esophagitis presence not specified 12/25/2014 05/21/2016 budesonide (ENTOCORT EC) Take 3 Caps 30 Cap 3 3 mg capsule by mouth every morning. For 4 months 03/20/2015 07/28/2016 Mesalamine (LIALDA) 1.2 Take 4 Tabs 240 Tab 0 gram tablet by mouth daily with breakfast. Lot [id number] 11/201605/19/2016 05/22/[address](+) Take 1 Cap by 60 Cap 3 (PRILOSEC) 40 mg mouth twice capsuleIndications: daily before Crohn's disease with meals. complication, unspecified gastrointestinal tract location (HCC), Gastroesophageal reflux disease, esophagitis presence not specified documented as of this encounter Plan of Treatment Not on filedocumented as of this encounter Procedures Comments Procedure Name Priority Date/Time Associated Diagnosis C DIFFICILE BY PCR Routine 05/19/2016 Crohn's disease with 4:02 PM CDT complication, unspecified gastrointestinal tract location (HCC) Gastroesophageal reflux disease, esophagitis presence not specified IRON + BINDING CAPACITY + Routine 05/19/2016 Crohn's disease with %SAT 3:16 PM CDT complication, unspecified gastrointestinal tract location (HCC) Gastroesophageal reflux disease, esophagitis presence not specified 25-OH VITAMIN D (D2 + D3) Routine 05/19/2016 Crohn's disease with 3:16 PM CDT complication, unspecified gastrointestinal tract location (HCC) Gastroesophageal reflux disease, esophagitis presence not specified CBC Routine 05/19/2016 Crohn's disease with 3:16 PM CDT complication, unspecified gastrointestinal tract location (HCC) Gastroesophageal reflux disease, esophagitis presence not specified C REACTIVE PROTEIN (CRP) Routine 05/19/2016 Crohn's disease with 3:16 PM CDT complication, unspecified gastrointestinal tract location (HCC) Gastroesophageal reflux disease, esophagitis presence not specified FERRITIN Routine 05/19/2016 Crohn's disease with 3:16 PM CDT complication, unspecified gastrointestinal tract location (HCC) Gastroesophageal reflux disease, esophagitis presence not specified VITAMIN B12 Routine 05/19/2016 Crohn's disease with 3:16 PM CDT complication, unspecified gastrointestinal tract location (HCC) Gastroesophageal reflux disease, esophagitis presence not specified COMPREHENSIVE METABOLIC Routine 05/19/2016 Crohn's disease with PANEL 3:16 PM CDT complication, unspecified gastrointestinal tract location (HCC) Gastroesophageal reflux disease, esophagitis presence not specified documented in this encounter Results * C DIFFICILE BY PCR (05/19/2016 4:02 PM CDT) Battery Name C DIFFICILE PCR MAIN LAB Specimen FECES MAIN LAB Description Special NONE MAIN LAB Requests C. difficile NEGATIVE-wait 7 days to repeat MAIN LAB Toxin B PCR test Report Status FINAL MAIN LAB 05/19/2016 Specimen Feces Performing Organization Address [facility] Phone Number MAIN LAB [address] [place] [address] * FERRITIN (05/19/2016 3:16 PM CDT) Ferritin 97 10 - 200 NG/ML MAIN LAB Specimen Blood Performing Organization Address [facility] Phone Number MA[facility] LAB [address] [place] [address] * IRON + BINDING CAPACITY + %SAT (05/19/2016 3:16 PM CDT) Iron 69 50 - 160 MCG/DL MAIN LAB Iron 466 (H) 270 - 380 MCG/DL MAIN LAB Binding-TIBC % Saturation 15 (L) 28 - 42 % MAIN LAB Specimen Blood Performing Organization Address [facility] Phone Number MAIN LAB [address] [place] [address] * 25-OH VITAMIN D (D2 + D3) (05/19/2016 3:16 PM CDT) Vitamin 23.8 (L) 30 - 80 NG/ML MAIN LAB D(25-OH)Total Specimen Blood Performing Organization Address [facility] Phone Number MAIN LAB [address] [place] [address] * VITAMIN B12 (05/19/2016 3:16 PM CDT) Vitamin B12 228 180 - 914 PG/ML [facility] MAIN LAB Specimen Blood Performing Organization Address [facility] Phone Number [facility] MAIN LAB [address] [place] [address] * C REACTIVE PROTEIN (CRP) (05/19/2016 3:16 PM CDT) Pathologist [facility] C-Reactive 0.24 <1.0 MG/DL [facility] MAIN LAB Protein Specimen Blood Performing Organization Address [facility] Phone Number [facility] MAIN LAB [address] [place] [address] * CBC (05/19/2016 3:16 PM CDT) Pathologist [facility] White Blood 9.1 4.5 - 11.0 K/UL [...] MAIN LAB Specimen Blood Performing Organization Address [facility] Phone Number [facility] MAIN LAB [address] [place] [address] * COMPREHENSIVE METABOLIC PANEL (05/19/2016 3:16 PM CDT) Pathologist [facility] Sodium 143 137 - 147 MMOL/L [facility] [...] >60 >60 mL/min [facility] MAIN LAB Comment: [place] The eGFR is not validated for use in drug dosing adjustments.Continue to use estimated creatinine clearance per dosing reference text.Please contact the Clinical Pharmacist for questions. eGFR >60 >60 mL/min [facility] MAIN LAB [place] Comment: The eGFR is not validated for use in drug dosing adjustments.Continue to use estimated creatinine clearance per dosing reference text.Please contact the Clinical Pharmacist for questions. Specimen Blood Performing Organization Address City/State/Zipcode Phone Number MAIN LAB [address] [place] [address] documented in this encounter Visit Diagnoses Diagnosis Crohn's disease with complication, unspecified gastrointestinal tract location (HCC) Gastroesophageal reflux disease, esophagitis presence not specified documented in this encounter
--- OUTSIDE RECORDS SUMMARY | 2019-04-12 23:08 | XMS REPORT | Encounter Summary ---
Author Author [facility] Organization [facility] Address Unknown Phone Unavailable Care Team Providers Care Defence Force Senior Officer Name Role Phone Barber Nguyen MD Unavailable Naveed Lockhart DO PCP Mychart, Generic Provider Unavailable Unavailable Mary Gomez Unavailable Unavailable Reason for Visit * Reason Comments Results Encounter Details Care Team Description Date Type Department Syeda Odonnell MD [address] [facility] Ortho/Med Pavilion Lvl [address] [place], [place] [id number] Results 12/03/2014 Telephone [facility] Physicians - Internal Medicine [address] [facility] MED OFFICE [address]LDG [address] [address] Social History Date Tobacco Use Types Packs/Day Years Used Passive Smoke Exposure - 1 11 Never Smoker Drinks/Week oz/Week Comments Alcohol Use No Sex Assigned at Date Recorded Not on file Industry Job Start Date Occupation Not on file Not on file Not on file Travel End Travel History Travel Start No recent travel history available. documented as of this encounter Miscellaneous Notes * Telephone Encounter - Arturo Angulo RN - 12/03/2014 1:23 PM FEATHEREDGER AND REDUCER MACHINE Pt notified per below. Pt's lialda was refilled per below. Pt has follow up appt on 12/[address] Odonnell. HEREDGER AND REDUCER MACHINE * Telephone Encounter - Arturo Angulo RN - 12/03/2014 1:21 PM FEATHEREDGER AND REDUCER MACHINE Message copied by ARTURO ANGULO on WedDec 03, 2014 1:21 PM ------ Message from: SYEDA ODONNELL Created: [place] Dec 02, 2014 10:46 PM Chemistry panel if ok, ok to refill her IBD meds. REpeat Chem-12 in four mo nths HEREDGER AND REDUCER MACHINE documented in this encounter Plan of Treatment Not on filedocumented as of this encounter Visit Diagnoses Not on filedocumented in this encounter
--- OUTSIDE RECORDS SUMMARY | 2019-04-12 23:08 | XMS REPORT | Encounter Summary ---
Author Author [facility] Organization [facility] Address Unknown Phone Unavailable Care Team Providers Care Osteopathic Physician Name Role Phone Barber Nguyen MD Unavailable Naveed Lockhart DO PCP Mychart, Generic Provider Unavailable Unavailable Mary Gomez Unavailable Unavailable Reason for Visit * Reason Comments Weight Loss Anal Bleeding Post-hospital Follow Up Encounter Details Care Team Description Date Type Department Moncho Odonnell MD [address] Ortho/Med Pavilion Lvl [address] [place], [place] [id number] Weight Loss; Anal Bleeding; Post-hospital Follow Up 04/30/2016 Telephone [facility] Physicians - Internal Medicine [address] [place] [address] Social History Date Tobacco Use Types Packs/Day [...] Telephone Encounter - Parris Ramirez RN - 05/01/2016 11:38 AM CDT Patient was phoned and reviewed overall concerns regarding h/o medical noncompli ance, missing recommended appointments which is necessary for management of her inflammatory bowel disease but that Dr. Odonnell would still like to offer to yaritza love in helping her through this acute episode by having patient be seen by Loreta pierre NP but that most likely for future care since patient has not been able to follow Dr. Odonnell's well documented plan of care, that would need to transition her over to new provider. Patient agrees to be seen by Loreta Mcfadden NP and aware scheduling will reach out to patient for that appointment. Patient confirms has our blind eyeletter number if not contacted. Request for medical records for shai casey of care sent yesterday and will be faxed to [phone]. Parris Ramirez RN, GI Clinical Nurse Coordinator * Telephone Encounter - Moncho Odonnell MD - 05/01/2016 10:40 AM CDT Please see my previous reply for direction. Given her continued noncompliance, we will help her through her acute episode and then my intention will be to cho sition to a new provider and release her from my practice. My last clinic note d ocuments her noncompliance to medical recommendations and my need to f/u with he r in four months. That note is from a year and a half ago. * Telephone Encounter - Moncho Odonnell MD - 05/01/2016 10:37 AM CDT This patient has not followed up for over a year and a half with active inflamma tory bowel disease. She has a h/o medical noncompliance, and missed appointments . If she is upset about her appointment change, please offer earlier availabili ty through Loreta Mcfadden's clinic. thanks * Telephone Encounter - Paola Garcia RN - 04/30/2016 5:09 PM CDT RN received VM from patient upset that her appointment was changed from 05/12/16 to 05/19/16. RN spoke to patient and she is very upset that her appointment was changed. Stat ed she just got home from a week stay at [facility] in [facility]. Hospital stay 04/15/16-04/22/16. Patient stated that she had abd pain, bright red blood with stools, tested posit rosei for occult blood, and had increase inflammation markers, and a 10-15 pound w eight loss in 3 months. Patient stated that she has bright red blood dripping into toilet and some clots . Stated that her PCP is aware. She stated that she did not get scoped during the hospital stay. Patient is scheduled on 05/19/16 with Loreta Mcfadden. RN emailed IMscheduling to see if there is an earlier appointment. RN advised patient to go to ER to be evaluated for bleeding. Patient verbalized understanding. Routing to Dr. Odonnell to advise. Paola Garcia RN documented in this encounter Plan of Treatment Not on filedocumented as of this encounter Visit Diagnoses Not on filedocumented in this encounter
--- OUTSIDE RECORDS SUMMARY | 2019-04-12 23:08 | XMS REPORT | Encounter Summary ---
Author Author [facility] Organization [facility] Address Unknown Phone Unavailable Care Team Providers Care Government Relations Manager Name Role Phone Barber Nguyen MD Unavailable Naveed Lockhart DO PCP Mychart, Generic Provider Unavailable Unavailable Mary Gomez Unavailable Unavailable Encounter Details Care Team Description Date Type Department Moncho Odonnell MD [address] [facility]Med [place] [address] [place] [address] Medication monitoring encounter 11/29/2014 Orders Only [facility] Physicians - Internal Medicine [address] [facility] MED OFFICE [address]LDG [address] [address] Social History Date Tobacco Use [...] as of this encounter Progress Notes * Arturo Angulo RN - 12/03/2014 1:24 PM INTERPRETER TRANSLATOR Quick Note: See telephone note. RPRETER TRANSLATOR * Moncho Odonnell MD - 12/02/2014 10:46 PM INTERPRETER TRANSLATOR Quick Note: Chemistry panel if ok, ok to refill her IBD meds. REpeat Chem-12 in four months RPRETER TRANSLATOR documented in this encounter Plan of Treatment Not on filedocumented as of this encounter Procedures Comments Procedure Name Priority Date/Time Associated Diagnosis COMPREHENSIVE METABOLIC Routine 11/27/2014 Medication monitoring PANEL encounter documented in this encounter Results * COMPREHENSIVE METABOLIC PANEL (11/27/2014) Sodium OTHER OUTSIDE LAB Potassium OTHER OUTSIDE LAB Chloride OTHER OUTSIDE LAB CO2 OTHER OUTSIDE LAB Blood Urea OTHER OUTSIDE Nitrogen LAB Creatinine OTHER OUTSIDE LAB Glucose OTHER OUTSIDE LAB Calcium OTHER OUTSIDE LAB Total Protein OTHER OUTSIDE LAB Total Bilirubin OTHER OUTSIDE LAB Albumin OTHER OUTSIDE LAB Alk Phosphatase OTHER OUTSIDE LAB AST (SGOT) OTHER OUTSIDE LAB ALT (SGPT) OTHER OUTSIDE LAB eGFR Non OTHER OUTSIDE LAB [place] eGFR OTHER OUTSIDE [place] LAB Anion Gap OTHER OUTSIDE LAB Specimen Blood - Blood Narrative Performed At Performing Organization Address City/State/Zipcode Phone Number OTHER OUTSIDE LAB documented in this encounter Visit Diagnoses Diagnosis Medication monitoring encounter Encounter for therapeutic drug monitoring documented in this encounter
--- OUTSIDE RECORDS SUMMARY | 2019-04-12 23:08 | XMS REPORT | Encounter Summary ---
Author Author [facility] Organization [facility] Address Unknown Phone Unavailable Care Team Providers Care Telephone Exchange Operator Name Role Phone Barber Nguyen MD Unavailable Naveed Lockhart DO PCP Mychart, Generic Provider Unavailable Unavailable Mary Gomez Unavailable Unavailable Reason for Referral * Consult, Test & Treat Referred By Contact Referred To Contact Status Reason Specialty Diagnoses / Procedures Moncho Odonnell MD [address] Ortho/Med Pavilion Lvl [address] [place] [address] Closed Specialty Services Basket Hand Braider Diagnoses Required Inadequate material resources Scheduling Instructions Pt needs medication assistance with Budesonide [phone] (home) Pls fax to Fernanda Bond Reason for Visit * Reason Comments Crohn's Disease Encounter Details Care Team Description Date Type Department Moncho Odonnell MD [address] Ortho/Med Pavilion Lvl [address] [place] [address] [phone] Crohn's disease (Primary Dx); Inadequate material resources; Noncompliance 12/25/2014 Office Visit [facility] Physicians - Internal Medicine [address] MED OFFICE [address]LDG [address] [place] [address] Social History Date Tobacco Use Types Packs/Day Years Used Current Every Day Smoker Cigarettes 0.5 11 Tobacco Cessation: Ready to Quit: No; Counseling Given: Yes Drinks/Week oz/Week Comments Alcohol Use No Sex Assigned at Date Recorded Not on file Industry Job Start Date Occupation Not on file Not on file Not on file Travel End Travel History Travel Start No recent travel history available. documented as of this encounter Last Filed Vital Signs Reading Time Taken Comments Vital Sign 133/94 12/25/2014 10:08 AM SALES MANAGEMENT INTERN Blood Pressure 82 12/25/2014 10:08 AM SALES MANAGEMENT INTERN Pulse 36.4 C (97.6 F) 12/25/2014 10:08 AM SALES MANAGEMENT INTERN Temperature 16 12/25/2014 10:08 AM SALES MANAGEMENT INTERN Respiratory Rate - - Oxygen Saturation - - Inhaled Oxygen Concentration 74.8 kg (165 lb) 12/25/2014 10:08 AM SALES MANAGEMENT INTERN Weight 160 cm (5' 3") 12/25/2014 10:08 AM SALES MANAGEMENT INTERN Height 29.23 12/25/2014 10:08 AM SALES MANAGEMENT INTERN Body Mass Index documented in this encounter Patient Instructions * Patient Instructions* Arturo Angulo RN - 12/25/2014 11:09 AM SALES MANAGEMENT INTERN Start budesonide 9 mg, 3 tabs daily for 4 months. Please call our social work for resources for medication assistance, her name is Fernanda # [phone]. Please go to the lab today. Follow up in 4 months. S MANAGEMENT INTERN documented in this encounter Progress Notes * Moncho Odonnell MD - 12/25/2014 10:11 AM SALES MANAGEMENT INTERN Date of Service: 12/25/2014 Subjective: Mady Yoon is a 34 y.o. female. History of Present Illness Patient reports compliance with Lialda at 4 tabs once daily. She has continu ed to smoke cigarettes after multiple recommendations to stop and discussion abo ut how this likely exacerbates her Crohn's. Continued post prandial generalized abdominal pain associated with nausea and abdominal distention. NO vomiting. R eports pain is dull, nonspecific, and can last for hours at a time. No fevers, chills, NS. Had an ER visit locally in Summer 2013 for abdominal pain. Past History: Updated for recent ER visit (Summer 2013) Review of Systems Constitutional: Positive for diaphoresis, appetite change, fatigue and unexpecte d weight change. Gastrointestinal: Positive for vomiting, abdominal pain, diarrhea, blood in stoo l and rectal pain. Genitourinary: Positive for vaginal pain. Musculoskeletal: Positive for back pain and neck pain. Neurological: Positive for dizziness, light-headedness and headaches. Psychiatric/Behavioral: Positive for sleep disturbance. All other systems reviewed and are negative. Objective: HYDROcodone/acetaminophen (NORCO; VICODIN) 5-325 mg tablet Take 1 Tab by keyana th every 6 hours as needed. Mesalamine (LIALDA) 1.2 gram tablet Take 4 Tabs by mouth daily with breakfas t. Filed Vitals: 12/25/14 1008 BP: 133/94 Pulse: 82 Temp: 36.4 C (97.6 F) TempSrc: Oral Resp: 16 Height: 160 cm (63") Weight: 74.844 kg (165 lb) Body mass index is 29.24 kg/(m^2). Physical Exam Vitals reviewed. Constitutional: She is oriented to person, place, and time. She appears well-dev eloped and well-nourished. No distress. HENT: Head: Normocephalic and atraumatic. Eyes: Pupils are equal, round, and reactive to light. Right eye exhibits no disc harge. No scleral icterus. Neck: Neck supple. No JVD present. No tracheal deviation present. No thyromegaly present. Cardiovascular: Normal rate, regular rhythm and normal heart sounds. Exam revea ls no gallop and no friction rub. No murmur heard. Pulmonary/Chest: Effort normal and breath sounds normal. No stridor. No respirat ory distress. She has no wheezes. She has no rales. She exhibits no tenderness. Abdominal: Soft. Bowel sounds are normal. She exhibits no distension and no mass . There is tenderness (Generalized TTP). There is no rebound and no guarding. Lymphadenopathy: She has no cervical adenopathy. Neurological: She is alert and oriented to person, place, and time. Skin: Skin is warm and dry. No rash noted. She is not diaphoretic. No erythema. No pallor. Psychiatric: She has a normal mood and affect. Her behavior is normal. Judgment and thought content normal. Review of outside records: CT scan and lab work from Summer 2013 ER visit, showe d small bowel and colonic wall thickening and leukocytosis. Testing for C dif wa s performed. Assessment and Plan: 34 yo female with ileocolonic Crohn's disease and a long history of medica l compliance. She has been intolerant to multiple classes of medications and pre sent in follow up. I have recommended and will move forward with the followin)Will check CBC, B12 level, C-RP, and Vitamin D level 2)Given limited medical options, will attempt again budesonide at 9mg per day. T serjio this is not a rn long term care maintenance option, I think is the the best curren tly available in the context of her extreme medical noncompliance 3)I have recommended again that she stop smoking, and discuss options to aid in smoking cessation with her primary care physician Dr. Lockhart 4)RTC in four months I spent approximately 25 minutes with the patient in a [id number] manner today , over 50% of the time was spent counseling her regarding the need for smoking c essation, a discussion of use of budesonide, and a review of its side effects. S he is to call with any problems or side effects. S MANAGEMENT INTERN documented in this encounter Miscellaneous Notes * Admin - SCANNED DOCUMENT - 12/26/2014 10:29 AM SALES MANAGEMENT INTERN S MANAGEMENT INTERN * Outside Records - SCANNED DOCUMENT - 12/25/2014 12:41 PM SALES MANAGEMENT INTERN S MANAGEMENT INTERN documented in this encounter Plan of Treatment Order Schedule Name Type Priority Associated Diagnoses Expected: 12/25/2014 (Approximate), Expires: 12/25/2015 C REACTIVE PROTEIN (CRP) Lab Routine Crohn's disease Expected: 12/25/2014 (Approximate), Expires: 12/26/2015 VITAMIN B12 Lab Routine Crohn's disease Expected: 12/25/2014 (Approximate), Expires: 12/26/2015 25-OH VITAMIN D (D2 + D3) Lab Routine Crohn's disease Order Schedule Name Type Priority Associated Diagnoses Ordered: 12/25/2014 AMB REFERRAL TO SOCIAL Outpatient Routine Inadequate material WORK Referral resources documented as of this encounter Results * CBC (03/11/2015) White Blood 9.8 3.4 - 10.8 [facility] Cells RBC 4.48 3.77 - 5.28 [facility] Hemoglobin 14.0 11.1 - 15.9 [facility] Hematocrit 42.5 34.0 - 46.6 [facility] MCV 95 79 - 97 [facility] MCH 31.3 26.6 - 33.0 [facility] MCHC 32.9 31.5 - 35.7 [facility] Platelet Count 339 150 - 379 [facility] MPV [facility] RDW 14.5 12.3 - 15.4 [facility] Specimen Blood - Blood Narrative Performed At Performing Organization Address City/State/Zipcode Phone Number [facility] documented in this encounter Visit Diagnoses Diagnosis Crohn's disease (HCC) - Primary Regional enteritis of unspecified site Inadequate material resources Noncompliance Personal history of noncompliance with medical treatment, presenting hazards to health documented in this encounter
--- OUTSIDE RECORDS SUMMARY | 2019-04-12 23:08 | XMS REPORT | Encounter Summary ---
Author Author [facility] Organization [facility] Address Unknown Phone Unavailable Care Team Providers Care Net Application Support Specialist Name Role Phone Barber Nguyen MD Unavailable Naveed Lockhart DO PCP Mychart, Generic Provider Unavailable Unavailable Mary Gomez Unavailable Unavailable Reason for Referral * Consult, Test & Treat Referred By Contact Referred To Contact Status Reason Specialty Diagnoses / Procedures Syeda Odonnell MD [address] Ortho/Med Pavilion [address]vl [address] [place] [address] Closed Specialty Services Clinical Laboratory Technician Diagnoses Required Inadequate material resources Scheduling Instructions Pt might need assistance with medication cost, recently prescribed Budesonide (entocort) and Lialda. [phone] (home) Reason for Visit * Reason Comments Medication Question Encounter Details Care Team Description Date Type Department Syeda Odonnell MD [address] Ortho/Med Pavilion [address]vl [address] [place] [address] [phone] Medication Question 08/23/2014 Telephone [facility] Physicians - Internal Medicine [address] [facility] MED OFFICE BLDG 2[place] [address] Social History Date Tobacco Use [...] encounter Miscellaneous Notes * Telephone Encounter - Fernanda Bond - 08/23/2014 11:54 AM CDT 08-23-14 SW referral received for Rx asst. Call to pt to discuss Rx needs (and insurance coverage as pts chart shows [facility] Medicaid). No answer, message left f or a return call. * Telephone Encounter - Arturo Angulo, ANTWAN - 08/23/2014 8:56 AM CDT Referral to insurance case manager placed for assistance with info on medication assistanc e. Entocort Rx sent to pt's pharmacy. IM scheduling to call and schedule pt. LV for pt with info. * Telephone Encounter - Arturo Angulo, RN - 08/23/2014 8:41 AM CDT Message copied by ARTURO ANGULO on WedAug 23, 2014 8:41 AM ------ Message from: SYEDA ODONNELL Created: WedAug 22, 2014 3:43 PM Yes Start her on 9mg per day for eight weeks, then decrease to 6mg per day for two weeks, then continue 3mg per day chronically Disp: 3 month supply No refills F/U in clinic in next 4-6 weeks I am not sure she is going to be able to afford budesonide, can you get SWe r involved? thanks ----- Message ----- From: Arturo Jerome RN Sent: 08/22/2014 10:54 AM To: Syeda Odonnell MD Pt wants to know if she is going to start budesonide. Pls advise Arturo Magaña documented in this encounter Plan of Treatment Order Schedule Name Type Priority Associated Diagnoses Ordered: 08/23/2014 AMB REFERRAL TO SOCIAL Outpatient Routine Inadequate material WORK Referral resources documented as of this encounter Visit Diagnoses Diagnosis Inadequate material resources - Primary documented in this encounter
--- OUTSIDE RECORDS SUMMARY | 2019-04-12 23:08 | XMS REPORT | Encounter Summary ---
Author Author [facility] Organization [facility] Address Unknown Phone Unavailable Care Team Providers Care Lumber Press Operator Name Role Phone Barber Nguyen MD Unavailable Naveed Lockhart DO PCP Mychart, Generic Provider Unavailable Unavailable Mary Gomez Unavailable Unavailable Encounter Details Care Team Description Date Type Department Unknown, Unknown, 07/12/2014 Endo Rslt Enc [facility] [address] [place] [address] Social History Date Tobacco Use Types Packs/Day [...] Comments Procedure Name Priority Date/Time Associated Diagnosis COLON WITH ANESTHESIA 07/12/2014 REPORT 2:30 PM CDT documented in this encounter Results * COLON WITH ANESTHESIA REPORT (07/12/2014 2:30 PM CDT) Endoscopy Indications: Crohn's disease. [facility] OTHER Report Consent: The benefits, risks, RESULTS and alternatives to the procedure were discussed and informed consent was obtained from the patient. Medications: MAC. Procedure:I, the attending physician, was present for the entire viewing portion of the procedure. The endoscope was passed with ease through the anus under direct visualization and advanced to the terminal ileum. The scope was withdrawn and the mucosa was carefully examined. The quality of the preparation was good. The views were good. The patient's toleration of the procedure was good. Findings:An enterocolonic anastamosis was identified. This was mildly narrowed, but could be intubated without resistance. Multiple apthous ulcers were noted throughout the ileum. The colon was completely normal in appearance. Small, external, hemorhoidal tags were noted. Unplanned Events:There were no unplanned events. Summary: An enterocolonic anastamosis was identified. This was mildly narrowed, but could be intubated without resistance. Multiple apthous ulcers were noted throughout the ileum. The colon was completely normal in appearance. Small, external, hemorhoidal tags were noted. Recommendations: Patient must refrain from all smokes and NSAIDs as these will make her Crohn's worse. I will restart on oral mesalamine at 4 grams per day. I have given her a month supply of samples. (Lialda- Take 4 caps once daily) I will investigate getting her budesonide, and dose at 9mg po daily for now. Until comliance can be dmonstrated for safety of more potent meds, will plan on this as both an induction and maintenance agent for now. Procedure Codes: Performed By:The procedure was performed by Moncho Odonnell M.D. Endoscopy Version 1, electronically [facility] OTHER Report signed by KARI Macias M.D. on 07/31/2014 at 05:41 PM. Specimen Performing Organization Address City/State/Zipcode Phone Number [facility] OTHER RESULTS documented in this encounter Visit Diagnoses Not on filedocumented in this encounter
--- OUTSIDE RECORDS SUMMARY | 2019-04-12 23:08 | XMS REPORT | Encounter Summary ---
Author Author [facility] Organization [facility] Address Unknown Phone Unavailable Care Team Providers Care Epic Anesthesia Analyst Name Role Phone Barber Nguyen MD Unavailable Naveed Lockhart DO PCP Mychart, Generic Provider Unavailable Unavailable Mary Gomez Unavailable Unavailable Reason for Visit * Reason Comments Medication Refill Encounter Details Care Team Description Date Type Department Moncho Odonnell MD [address] [facility] Ortho/Med Pavilion Lvl [address] [place] [address] 08/21/2014 Refill [facility] Physicians - Internal Medicine [address] [facility] MED OFFICE BLDG [address] [address] Social History Date Tobacco Use [...] Telephone Encounter - Arturo Angulo RN - 08/21/2014 4:28 PM CDT Per Colonoscopy report recommendations: I will restart on oral mesalamine at 4 grams per day. I have given her a month s upply of samples. (Lialda- Take 4 caps once daily). Pt is requesting a prescription for Lialda to go to her pharmacy. Routing to Dr. Odonenll to authorize. documented in this encounter Plan of Treatment Not on filedocumented as of this encounter Visit Diagnoses Not on filedocumented in this encounter
--- OUTSIDE RECORDS SUMMARY | 2019-04-12 23:08 | XMS REPORT | Encounter Summary ---
Author Author [facility] Organization [facility] Address Unknown Phone Unavailable Care Team Providers Care Service Observer Name Role Phone Barber Nguyen MD Unavailable Naveed Lockhart DO PCP Mychart, Generic Provider Unavailable Unavailable Mary Gomez Unavailable Unavailable Loreta Mcfadden Unavailable Reason for Visit * Reason Comments Pre-Procedure 1st Call - Colonoscopy - Called pt & automated voice says, I'm sorry, the Instructions person who you are trying to reach does not have their mailbox setup yet, [facility] 06/05/14 @ 128 Encounter Details Care Team Description Date Type Department Mary Gomez 06/05/2014 Pre/Post [facility] Procedure [address] [place], [place] [id number] Social History Date Tobacco Use Types Packs/Day [...]
--- OUTSIDE RECORDS SUMMARY | 2019-04-12 23:08 | XMS REPORT | Encounter Summary ---
Author Author [facility] Organization [facility] Address Unknown Phone Unavailable Care Team Providers Care Shovel Engineer Name Role Phone Barber Nguyen MD Unavailable Naveed Lockhart DO PCP Mychart, Generic Provider Unavailable Unavailable Mary Gomez Unavailable Unavailable Reason for Visit * Consult, Test & Treat Referred By Contact Referred To Contact Status Reason Specialty Diagnoses / Procedures Moncho Odonnell MD [address] Ortho/Med Pavilion Lvl [address] [place] [address] Closed Specialty Services Diagnoses Required Crohn's disease (HCC) Encounter Details Care Team Description Date Type Department Moncho Odonnell MD [address] Ortho/Med Pavilion Lvl [address] [place] [address] [phone] 07/12/2014 Hospital [facility] Encounter [address] [place] [address] Social History Date Tobacco Use Types Packs/Day [...] Signs Reading Time Taken Comments Vital Sign 132/88 07/12/2014 3:47 PM CDT Blood Pressure 61 07/12/2014 3:47 PM CDT Pulse 36.4 C (97.5 F) 07/12/2014 2:44 PM CDT Temperature - - Respiratory Rate 95% 07/12/2014 3:47 PM CDT Oxygen Saturation - - Inhaled Oxygen Concentration 73.9 kg (163 lb) 07/12/2014 1:19 PM CDT Weight 160 cm (5' 3") 07/12/2014 1:19 PM CDT Height 28.87 07/12/2014 1:19 PM CDT Body Mass Index documented in this encounter Discharge Instructions * Anesthesia Post-Op* Nancy Wilkins MD - 07/12/2014 3:48 PM CDT PACU Sign Out Date: 07/12/2014 SignOut Time: 15:50 Procedure: Colonoscopy Anesthesia: MAC (Monitored Anesthesia Care) Complications: None BP: 125/85 mmHg (07/12 153) Temp: 36.4 C (97.5 F) (07/12 1444) Pulse: 60 (07/12 153) Respirations: 19 PER MINUTE (07/12 153) SpO2: 96 % (07/12 153) SpO2 Pulse: 61 (07/12 1537) Height: 160 cm (63") (07/12 1319) PARS: 07/04 Disposition: Chronic pain and anxiety at baseline - did not take meds today. C omplained of post procedure pain and tearful - administered dilaudid 1mg and Otilia sed 2mg with good results. Pt states feels at baseline, ready to go home. No PONV. Stable for discharge to home. Haylee Wilkins MD documented in this encounter Medications at Time of Discharge Start Date End Date Medication Sig Dispensed Refills HYDROcodone/acetaminophen Take 1 Tab by 0 (NORCO; VICODIN) 5-325 mg mouth every 6 tablet hours as needed. 12/25/2014 cetirizine (ZYRTEC) 10 mg Take 10 mg by 0 tablet mouth daily. documented as of this encounter Progress Notes * Randee Mack RN - 07/12/2014 4:05 PM CDT GI Endo Outpatient Care Plan Resolution Note All care plans were addressed and resolved during pre and post-procedure patient education and review of discharge instructions. A copy of discharge instructio ns, procedure summary report, and medication reconciliation list provided to elmira alvarez. documented in this encounter H&P Notes * Moncho Odonnell MD - 07/12/2014 2:01 PM CDT Pre Procedure History and Physical/Sedation Plan Date of Procedure: 07/12/2014 Planned Procedure(s): GI: Colonoscopy Sedation/Medication Plan: MAC (Monitored Anesthesia Care) Discussion/Reviews: Physician has discussed risks and alternatives of this type of sedation and above planned procedures with patient Chief Complaint: H/O Crohn's History of Present Illness: Mady Yoon is a 34 y.o. female here for restag ing of Crohn's disease. H/O recurrent SBO and medical noncompliance. Previous Anesthetic/Sedation History: n/a Past Medical History Diagnosis Date Crohn's disease Abdominal pain Neoplasm of unspecified nature, site unspecified Symptoms involving digestive system Asthma Past Surgical History Procedure Date Hx section Hx small bowel resection Hx cholecystectomy Pertinent medical/surgical history reviewed Pertinent family history reviewed History Substance Use Topics Smoking status: Passive Smoke Exposure - Never Smoker -- 1.0 packs/day for 1 1 years Smokeless tobacco: Not on file Alcohol Use: No History Drug Use No Allergies: Nsaids (non-steroidal anti-inflammatory drug) and Pcn Medications Current Outpatient Prescriptions Medication Sig cetirizine (ZYRTEC) 10 mg tablet Take 10 mg by mouth daily. HYDROcodone/acetaminophen (NORCO; VICODIN) 5-325 mg tablet Take 1 Tab by keyana th every 6 hours as needed. Current Facility-Administered Medications Medication SODIUM CHLORIDE 0.9 % IV SOLP (Cabinet Override) Review of Systems: A comprehensive review of systems was negative except for: that discussed in HPI Physical Exam: Temp: 36.2 C (97.2 F) (07/12 1333) Pulse: 69 (07/12 1333) Respirations: 13 PER MINUTE (07/12 1333) BP: 130/86 mmHg (07/12 1333) General appearance: alert and cooperative Throat: Lips, mucosa, and tongue normal. Teeth and gums normal Lungs: clear to auscultation bilaterally Heart: regular rate and rhythm, S1, S2 normal, no murmur, click, rub or gallop Abdomen: soft, non-tender. Bowel sounds normal. No masses, no organomegaly Extremities: extremities normal, atraumatic, no cyanosis or edema NPO Status: Last PO Intake Date: 07/11/14 Last PO Intake Time: 2200 Airway: airway assessment performed Anesthesia Classification: ASA II (A normal patient with mild systemic disease) Lab/Radiology/Other Diagnostic Tests Labs: No pertinent labs Moncho Odonnell MD Pager documented in this encounter Procedure Notes * SCANNED DOCUMENT - 07/16/2014 9:26 AM CDT * SCANNED DOCUMENT - 07/16/2014 9:21 AM CDT Associated Order(s): PROCEDURES-SCAN * SCANNED DOCUMENT - 07/15/2014 9:59 AM CDT Associated Order(s): PROCEDURES-SCAN documented in this encounter Miscellaneous Notes * Admin - SCANNED DOCUMENT - 07/16/2014 1:06 PM CDT * Admin - SCANNED DOCUMENT - 07/16/2014 1:06 PM CDT * Patient Education - SCANNED DOCUMENT - 07/16/2014 9:24 AM CDT * Anesthesia Pre-Op - Nancy Wilkins MD - 07/12/2014 1:56 PM CDT Pre-Operative Anesthesia Assessment Admission Date: 07/12/2014 LOS: 0 days Assessment: ASA III Plan: MAC (Monitored Anesthesia Care) Chief Complaint/ Planned Procedure: Active Crohn's Ds - Colonscopy NPO :for greater than 8 hours Staff Surgeon: Blas Admission Status: Outpatient/Same Day Surgery Surgery Date: 07/12/2014 Patient location: Same Day Surgery Historian: Patient and Old Record Past Medical History Diagnosis Date Crohn's disease Abdominal pain Neoplasm of unspecified nature, site unspecified Symptoms involving digestive system Asthma Past Surgical History Procedure Date Hx section Hx small bowel resection Hx cholecystectomy Complications: None Nursing Medical History GI Disorder Yes Crohn's, reflux Asthma Yes Other Yes polycystic ovarian disease Nursing Surgical History Abdominal Surgery Yes adelaide Appendectomy Yes Hysterectomy Yes Section Yes Prior Anesthetic Types: General and MAC (Monitored Anesthesia Care) Family Anesthesia HX: None Allergies Allergen Reactions Nsaids (Non-Steroidal Anti-Inflammatory Drug) SEE COMMENTS Stomach bleeding Pcn (Penicillins) Medications For Outpatients and Same Day Surgery Current Outpatient Prescriptions Medication Sig cetirizine (ZYRTEC) 10 mg tablet Take 10 mg by mouth daily. HYDROcodone/acetaminophen (NORCO; VICODIN) 5-325 mg tablet Take 1 Tab by keyana th every 6 hours as needed. Current Facility-Administered Medications Medication SODIUM CHLORIDE 0.9 % IV SOLP (Cabinet Override) Social History Substance Use Topics Smoking status: Passive Smoke Exposure - Never Smoker -- 1.0 packs/day for 1 1 years Smokeless tobacco: Not on file Alcohol Use: No Review of Systems Airway:Negative Cardiovascular: Negative and Exercise tolerance > 4 METS Pulmonary: Smoker, has h/o asthma but mild - no hospitalizations, uses inh only rarely (last over a year ago), breathing at baseline today GI:Crohn's Ds, GERD (controlled) Endocrine: WNL Heme/Onc: WNL Renal:Negative Neurological:chronic pain, on home vicodin (none taken today) Musculoskeletal:WNL Vital Signs (Last Filed in 24 hours) BP: 130/86 mmHg (07/12 1333) Temp: 36.2 C (97.2 F) (07/12 1333) Pulse: 69 (07/12 1333) Respirations: 13 PER MINUTE (07/12 133) SpO2: 100 % (07/12 1333) Height: 160 cm (63") (07/12 1319) Physical Exam Mady Yoon is a 34 y.o. female. Weight: 73.936 kg (163 lb) Height: 160 cm (63") BMI (Calculated): 28.87 Airway: Mallampati Class II, Normal thyromental distance, Good neck ROM, Neck jacob pple and symmetrical, Trachea midline and Teeth state of repair good Cardiovascular:Heart sounds: regular rate and rhythm and No murmur Pulmonary: Breath sounds: clear, equal bilaterally and Respirations regular and unlabored GI/Metabolic:Exam deferred Neurological:Alert and Oriented Diagnostic Tests Hematology: Lab Results Component Value Date HGB 13.8 05/29/2014 HCT 41.8 05/29/2014 PLTCT 407 05/29/2014 WBC 8.2 05/29/2014 NEUT 47 05/29/2014 ANC 3.90 05/29/2014 ALC 3.30 05/29/2014 VIKTORIYA 7 05/29/2014 AMC 0.60 05/29/2014 ABC 0.00 05/29/2014 MCV 91.3 05/29/2014 MCHC 33.0 05/29/2014 MPV 6.9 05/29/2014 RDW 14.3 05/29/2014 General Chemistry: Lab Results Component Value Date NA 142 05/29/2014 K 3.3 05/29/2014 CL 108 05/29/2014 GAP 6 05/29/2014 BUN 8 05/29/2014 CR 0.72 05/29/2014 GLU 85 05/29/2014 GLU 79 08/07/2004 CA 9.7 05/29/2014 ALBUMIN 4.3 05/29/2014 TOTBILI 0.5 05/29/2014 Coagulation: No results found for this basename: pt, ptt, inr Labs: Pertinent labs reviewed EKG: Not obtained CXR: Not obtained Consults: Not obtained Assessment by: Haylee Wilkins MD Pager [phone] Date: 07/12/2014 documented in this encounter Plan of Treatment Not on filedocumented as of this encounter Procedures Comments Procedure Name Priority Date/Time Associated Diagnosis PROCEDURES-SCAN 07/16/2014 9:21 AM CDT PROCEDURES-SCAN 07/15/2014 9:59 AM CDT documented in this encounter Results * PROCEDURES-SCAN (07/16/2014 9:21 AM CDT) Narrative Performed At Transcriptions SCANNED DOCUMENT - 07/16/2014 9:21 AM CDT * PROCEDURES-SCAN (07/15/2014 9:59 AM CDT) Narrative Performed At A scan was deleted from the Results section by S Document [SCANNEDDOC] on 08/23/2014 at1:10 PM (File: [id number]) Transcriptions SCANNED DOCUMENT - 07/15/2014 9:59 AM CDT documented in this encounter Visit Diagnoses Diagnosis Crohn's disease (HCC) - Primary Regional enteritis of unspecified site documented in this encounter Administered Medications Action Date Dose Rate Site Medication Order MAR Action HYDROMORPHONE (PF) 2 MG/ML IJ SYRG (Cabinet Override) NOW, 1 dose, Jacquelyn 07/12/14 at 1515, Randee Mack: cabinet override NOTE: This is a HIGH ALERT Medication.Randee: cabinet override, 07/12/2014 3:16 PM CDT 0.5 mg HYDROmorphone injection (DILAUDID) Given syringe 0.5-1 mg 0.5-1 mg, Intravenous, ONCE, 1 dose, Jacquelyn 07/12/14 at 1515, May repeat up to 2 mg. Notify anesthesia for inadequate analgesia. NOTE: This is a HIGH ALERT Medication., PACU (only) 0.5 mg Given 07/12/2014 3:07 PM CDT documented in this encounter
--- OUTSIDE RECORDS SUMMARY | 2019-04-12 23:08 | XMS REPORT | Encounter Summary ---
Author Author [facility] Organization [facility] Address Unknown Phone Unavailable Care Team Providers Care Director Chemistry Name Role Phone Barber Nguyen MD Unavailable Naveed Lockhart DO PCP Mychart, Generic Provider Unavailable Unavailable Mary Gomez Unavailable Unavailable Reason for Visit * Reason Comments Medication Refill Medication Problem Encounter Details Care Team Description Date Type Department Moncho Odonnell MD [address] [facility] Ortho/Med Pavilion Lvl [address] [place], [place] [id number] Medication Refill; Medication Problem 03/15/2015 Telephone [facility] Physicians - Internal Medicine [address] [facility] MED OFFICE BLDG 2ND [place] [address] Social History Date Tobacco Use [...] Telephone Encounter - Arturo Angulo RN - 03/20/2015 3:17 PM CDT Samples mailed to pt. * Telephone Encounter - Arturo Angulo RN - 03/20/2015 9:20 AM CDT Samples ready for pt, awaiting call back from pt. * Telephone Encounter - Arturo Angulo RN - 03/20/2015 8:08 AM CDT Attempted to contact pt. LM to call back. * Telephone Encounter - Moncho Odonnell MD - 03/19/2015 8:49 PM CDT Please get her three months more of Lialda samples. Call Mary Daily the Juan r ep to help if needed. Thanks * Telephone Encounter - Arturo Angulo RN - 03/19/2015 12:25 PM CDT Pt called back stating that she has tried Asacol in the past and "it didn't work ". Pt states that she has been on other mesalamines and they didn't work also. P t wants to know how to proceed since Lialda is not covered by her insurance. If pt has failed other mesalamines, a PA can be started, we just need documentat ion of this. Routing to Dr. Odonnell to advise. * Telephone Encounter - Arturo Angulo RN - 03/19/2015 8:54 AM CDT Lialda is not covered by insurance. Pt wants to know plan for alternative therap y. Routing to Dr. Odonnell to advise. Attempted to contact pt. LM to call back. * Telephone Encounter - Moncho Odonnell MD - 03/18/2015 9:27 PM CDT Creatinine level is ok. Please continue with Lialda 1.2 gram caps- Take four ca ps once daily Repeat Chem-12 in 3 months Please ensure there is clinic f/u in the future with either myself or Loreta. We a re trying to assess if patient is able to maintain compliance as this has been a MAJOR problem in the past and precluded us from using anti-TNF or immunomodulat or therapy over the long haul * Telephone Encounter - Arturo Angulo, RN - 03/15/2015 4:28 PM CDT Pt called stating that she has been out of Lialda for a couple of weeks, and she needs to know "what is going on because she did the test that Dr. Odonnell wanted ", also states that medication will no longer be covered by insurance. Pt is req uesting a Plan of care. Routing to Dr. Odonnell to advise. documented in this encounter Plan of Treatment Not on filedocumented as of this encounter Visit Diagnoses Not on filedocumented in this encounter
--- OUTSIDE RECORDS SUMMARY | 2019-04-12 23:08 | XMS REPORT | Encounter Summary ---
Author Author [facility] Organization [facility] Address Unknown Phone Unavailable Care Team Providers Care Candy Depositing Machine Operator Name Role Phone Barber Nguyen MD Unavailable Naveed Lockhart DO PCP Mychart, Generic Provider Unavailable Unavailable Mary Gomez Unavailable Unavailable Reason for Visit * Reason Comments Prescription Assistance per referral Encounter Details Care Team Description Date Type Department Moncho Odonnell MD [address] [facility] Ortho/Med Pav[place] [address]vl [address] [place] [address] 09/03/2014 Clinical [facility] Support Physicians - Internal Medicine [address] [facility] MED OFFICE [address]LDG 2ND [place] [address] Social History Date Tobacco Use [...] as of this encounter Progress Notes * Fernanda Bond - 09/03/2014 9:41 AM BUS TROLLEY AND TAXI INSTRUCTOR 08-23-14 Pt might need assistance with medication cost, recently prescribed [place] esonide (entocort) and Lialda. [phone] (home). Call to pt to discuss Rx n eeds. No answer, message left for a return call. 09-03-14 No return call received. PAP info mailed. TROLLEY AND TAXI INSTRUCTOR documented in this encounter Plan of Treatment Not on filedocumented as of this encounter Visit Diagnoses Not on filedocumented in this encounter
--- OUTSIDE RECORDS SUMMARY | 2019-04-12 23:08 | XMS REPORT | Encounter Summary ---
Author Author [facility] Organization [facility] Address Unknown Phone Unavailable Care Team Providers Care Indirect Sales Representative Name Role Phone Barber Nguyen MD Unavailable Naveed Lockhart DO PCP Mychart, Generic Provider Unavailable Unavailable Mary Gomez Unavailable Unavailable Encounter Details Care Team Description Date Type Department Moncho Odonnell MD [address] [facility] Ortho/Med Pavilion Lvl 2B [place], [place] [id number] Medication monitoring encounter (Primary Dx) 11/23/2014 Orders Only [facility] Physicians - Internal Medicine [address] [facility] MED OFFICE BLDG 2[place] [address] Social History Date Tobacco Use [...] Progress Notes * Arturo Angulo RN - 11/23/2014 8:37 AM ROCKET ENGINE COMPONENT MECHANIC CMP ordered and [place]ed to [facility] [place] [facility] fax# [phone]. Pt aware will go today. ET ENGINE COMPONENT MECHANIC documented in this encounter Plan of Treatment [...] OUTSIDE LAB eGFR Non OTHER OUTSIDE LAB Gabonese eGFR OTHER OUTSIDE [place] LAB Anion Gap OTHER OUTSIDE LAB Specimen Blood - Blood Narrative Performed At Performing Organization Address City/State/Zipcode Phone Number OTHER OUTSIDE LAB documented in this encounter Visit Diagnoses Diagnosis Medication monitoring encounter - Primary Encounter for therapeutic drug monitoring documented in this encounter
--- OUTSIDE RECORDS SUMMARY | 2019-04-12 23:08 | XMS REPORT | Encounter Summary ---
Author Author [facility] Organization [facility] Address Unknown Phone Unavailable Care Team Providers Care Debone Processing Supervisor Name Role Phone Barber Nguyen MD Unavailable Naveed Lockhart DO PCP Mychart, Generic Provider Unavailable Unavailable Mary Gomez Unavailable Unavailable Reason for Visit * Reason Comments Medication Refill Encounter Details Care Team Description Date Type Department Moncho Odonnell MD 1999 [facility] Ortho/Med Pavilion Lvl 2B [place] [address] 11/19/2014 Refill [facility] Physicians - Internal Medicine [address] [facility] MED OFFICE BLDG [address] [address] Social History Date Tobacco Use [...] Telephone Encounter - Arturo Angulo RN - 11/23/2014 9:32 AM WAREHOUSE TEAM LEADER [facility] [place]. Pt is aware and will go to the lab today. HOUSE TEAM LEADER * Telephone Encounter - Moncho Odonnell MD - 11/22/2014 9:13 PM WAREHOUSE TEAM LEADER Needs chem 7 b4 refill HOUSE TEAM LEADER * Telephone Encounter - Moncho Odonnell MD - 11/22/2014 8:47 PM WAREHOUSE TEAM LEADER Patient needs chem-7 before moving forward with refills. She needs a followup cl inic visit soon HOUSE TEAM LEADER documented in this encounter Plan of Treatment Not on filedocumented as of this encounter Visit Diagnoses Not on filedocumented in this encounter
--- OUTSIDE RECORDS SUMMARY | 2019-04-12 23:08 | XMS REPORT | Encounter Summary ---
Author Author [facility] Organization [facility] Address Unknown Phone Unavailable Care Team Providers Care Stenotype Machine Operator Name Role Phone Barber Nguyen MD Unavailable Naveed Lockhart DO PCP Mychart, Generic Provider Unavailable Unavailable Mary Gomez Unavailable Unavailable Encounter Details Care Team Description Date Type Department Moncho Odonnell MD [address] [facility] Pavilion Lvl 2B [place] [address] Medication monitoring encounter (Primary Dx) 02/05/2015 Orders Only [facility] Physicians - Internal Medicine [address] [facility] MED OFFICE BLDG [address] [address] Social History Date Tobacco Use [...] this encounter Results * COMPREHENSIVE METABOLIC PANEL (03/11/2015) Sodium 144 134 - 144 [facility] Potassium 4.1 3.5 - 5.2 [facility] Chloride 105 97 - 108 [facility] CO2 22 18 - 29 [facility] Blood Urea 11 6 - 20 [facility] Nitrogen Creatinine 0.71 0.57 - 1.00 IN CL[facility]IC Glucose 83 65 - 99 [facility] Calcium 9.3 8.7 - 10.2 IN [facility] Total Protein 6.4 6.0 - 8.5 IN CL[facility]IC Total Bilirubin 0.4 0.0 - 1.2 IN CL[facility]IC Albumin 4.0 3.5 - 5.5 [facility] Alk Phosphatase 84 39 - 117 [facility] AST (SGOT) 13 0 - 40 [facility] ALT (SGPT) 17 0 - 32 [facility] eGFR Non IN CLINIC eGFR IN CLINIC Finnish Anion Gap IN CLINIC Specimen Blood - Blood Narrative Performed At Performing Organization Address City/State/Zipcode Phone Number IN CLINIC documented in this encounter Visit Diagnoses Diagnosis Medication monitoring encounter - Primary Encounter for therapeutic drug monitoring documented in this encounter
--- OUTSIDE RECORDS SUMMARY | 2019-04-12 23:08 | XMS REPORT | Encounter Summary ---
Author Author [facility] Organization [facility] Address Unknown Phone Unavailable Care Team Providers Care Peg Driver Name Role Phone Barber Nguyen MD Unavailable Naveed Lockhart DO PCP Mychart, Generic Provider Unavailable Unavailable Mary Gomez Unavailable Unavailable Reason for Visit * Reason Comments Medication Refill Encounter Details Care Team Description Date Type Department Moncho Odonnell MD 1999 [facility] Ortho/Med Pavilion Lvl 2B [place] [address] 02/01/2015 Refill [facility] Physicians - Internal Medicine [address] [facility] MED OFFICE BLDG 2ND [place] [address] Social History Date Tobacco Use [...] Telephone Encounter - Arturo Angulo RN - 02/05/2015 8:18 AM CDT Letter requesting labs from pt prior to refilling Lialda sent to home address. A ttempted to contact pt unable to leave messages. Pharmacy notified documented in this encounter Plan of Treatment Not on filedocumented as of this encounter Visit Diagnoses Not on filedocumented in this encounter
--- OUTSIDE RECORDS SUMMARY | 2019-04-12 23:09 | XMS REPORT | Encounter Summary ---
Author Author [facility] Organization [facility] Address Unknown Phone Unavailable Care Team Providers Care Corporate Services Manager Name Role Phone Barber Nguyen MD Unavailable Moncho Odonnell MD PCP Encounter Details Care Team Description Date Type Department Moncho Odonnell MD [address] Ortho/Med Pavilion Lvl 2B [place] [address] [phone] Regional enteritis of unspecified site 11/08/2012 Hospital [facility] [address] [address] Social History Date Tobacco Use Types Packs/Day [...] Date End Date Medication Sig Dispensed Refills 12/25/2014 cetirizine (ZYRTEC) 10 mg Take 10 mg by 0 tablet mouth daily. 05/29/2014 HYDROCODONE/ACETAMINOPHEN Take 2 Tabs 0 5/500 mg tablet by mouth Every 4 Hours as needed for Pain. 06/29/2012 05/29/2014 hyoscyamine (ANASPAZ; Place 1 Tab 90 Tab 3 NULEV; SYMAX FASTABS; under tongue HYOMAX-FT; ED-SPAZ; every 4 hours OSCIMIN) 0.125 mg rapid as needed for dissolve tablet Cramps. 05/29/2014 INFLIXIMAB (REMICADE IV) Administer 1 0 Each through vein every 30 days. 06/22/2012 05/29/2014 mercaptopurine Take 2 Tabs 60 Tab 0 (PURINETHOL) 50 mg by mouth tabletIndications: daily. Crohn's 05/29/2014 PREDNISONE 20 mg tablet Take 40 mg by 0 mouth Daily. documented as of this encounter Progress Notes * Moncho Odonnell MD - 12/05/2012 3:32 PM SOUNDSCRIBER MECHANIC Quick Note: Reviewed, continue oral mesalamine for now. Will need chemistry panel (Chem-7) checked in three months. DSCRIBER MECHANIC documented in this encounter Plan of Treatment Not on filedocumented as of this encounter Procedures Comments Procedure Name Priority Date/Time Associated Diagnosis CBC AND DIFF Routine 11/08/2012 Crohn's disease 5:56 PM SOUNDSCRIBER MECHANIC Abdominal pain C REACTIVE PROTEIN (CRP) Routine 11/08/2012 Crohn's disease 5:56 PM SOUNDSCRIBER MECHANIC Abdominal pain COMPREHENSIVE METABOLIC Routine 11/08/2012 Crohn's disease PANEL 5:56 PM SOUNDSCRIBER MECHANIC Abdominal pain documented in this encounter Results * C REACTIVE PROTEIN (CRP) (11/08/2012 5:56 PM SOUNDSCRIBER MECHANIC) C-Reactive 0.52 <1.0 MG/DL [facility] RESULTS Protein Specimen Blood - Blood Performing Organization Address City/State/Zipcode Phone Number [facility] RESULTS * COMPREHENSIVE METABOLIC PANEL (11/08/2012 5:56 PM SOUNDSCRIBER MECHANIC) Sodium 140 137 - 147 MMOL/L [facility] RESULTS Potassium 4.0 3.5 - 5.1 MMOL/L [facility] RES[facility] Chloride 106 98 - 110 MMOL/L [facility] RESULTS Glucose 93 70 - 100 MG/DL [facility] RESULTS Blood Urea 4 (L) 8 - 20 MG/DL [facility] RES[facility] Nitrogen Creatinine 0.75 0.4 - 1.00 MG/DL [facility] RESULTS Calcium 9.5 9.0 - 11.0 MG/DL [facility] RESULTS Total Protein 7.2 6.0 - 8.0 G/DL [facility] RESULTS Total Bilirubin 0.9 0.3 - 1.2 MG/DL [facility] RESULTS Albumin 4.0 3.5 - 5.0 G/DL [facility] RESULTS Alk Phosphatase 84 25 - 110 U/L [facility] RES[facility] AST (SGOT) 28 7 - 40 U/L [facility] RES[facility] CO2 26 21 - 30 MMOL/L [facility] RES[facility] ALT (SGPT) 34 7 - 56 U/L [facility] RESULTS Anion Gap 8 8 - 12 [facility] RESULTS eGFR Non >60 >60 ML/MIN/1.73 SQM [facility] RESULTS Comment: Surinamese The eGFR is not validated for use in drug dosing adjustments.Continue to use estimated creatinine clearance per dosing reference text.Please contact the Clinical Pharmacist for questions. eGFR >60 >60 ML/MIN/1.73 SQM [facility] RESULTS Surinamese Comment: The eGFR is not validated for use in drug dosing adjustments.Continue to use estimated creatinine clearance per dosing reference text.Please contact the Clinical Pharmacist for questions. Specimen Blood - Blood Performing Organization Address City/State/Zipcode Phone Number [facility] RESULTS * CBC AND DIFF (11/08/2012 5:56 PM SOUNDSCRIBER MECHANIC) White Blood 7.8 4.5 - 11.0 K/UL [facility] RESULTS Cells RBC 4.40 4.0 - 5.0 M/UL [facility] RESULTS Hemoglobin 13.6 12.0 - 15.0 GM/DL [facility] RESULTS Hematocrit 40.9 36 - 45 % [facility] RESULTS MCV 93.0 80 - 100 FL [facility] RESULTS MCH 31.0 26 - 34 PG [facility] RESULTS MCHC 33.0 32.0 - 36.0 G/DL [facility] RESULTS RDW 15.1 (H) 11 - 15 % [facility] RESULTS Platelet Count 349 150 - 400 K/UL [facility] RESULTS MPV 7.0 7 - 11 FL [facility] RESULTS Neutrophils 53 41 - 77 % [facility] RESULTS Lymphocytes 33 24 - 44 % [facility] RESULTS Monocytes 7 4 - 12 % [facility] RESULTS Eosinophils 6 (H) 0 - 5 % [facility] RESULTS Basophils 1 0 - 2 % [facility] RESULTS Absolute 4.13 1.8 - 7.0 K/UL [facility] RESULTS Neutrophil Count Absolute Lymph 2.59 1.0 - 4.8 K/UL [facility] RESULTS Count Absolute 0.54 0 - 0.80 K/UL [facility] RESULTS Monocyte Count Absolute 0.47 (H) 0 - 0.45 K/UL [facility] RESULTS Eosinophil Count Absolute 0.04 0 - 0.20 K/UL [facility] RESULTS Basophil Count Specimen Blood - Blood Performing Organization Address City/State/Zipcode Phone Number [facility] RESULTS documented in this encounter Visit Diagnoses Diagnosis Crohn's disease (HCC) Regional enteritis of unspecified site Abdominal pain Abdominal pain, unspecified site documented in this encounter
--- OUTSIDE RECORDS SUMMARY | 2019-04-12 23:09 | XMS REPORT | Encounter Summary ---
Author Author [facility] Organization [facility] Address Unknown Phone Unavailable Care Team Providers Care Roof Mechanic Name Role Phone Barber Nguyen MD Unavailable Moncho Odonnell MD PCP Encounter Details Care Team Description Date Type Department Moncho Odonnell MD [address] Ortho/Med Pavilion Lvl 2B [place] [address] [phone] 11/08/2012 Hospital Rad Svcs Encounter Social History Date Tobacco Use Types Packs/Day [...] Notes * Moncho Odonnell MD - 12/05/2012 3:52 PM ARCHITECTURAL DRAFTER Quick Note: Reviewed ITECTURAL DRAFTER documented in this encounter Plan of Treatment Not on filedocumented as of this encounter Procedures Comments Procedure Name Priority Date/Time Associated Diagnosis ABDOMEN AP ONLY Routine 11/08/2012 Crohn's disease 5:47 PM ARCHITECTURAL DRAFTER Abdominal pain documented in this encounter Results * ABDOMEN AP ONLY (11/08/2012 5:47 PM ARCHITECTURAL DRAFTER) Exam Status [facility] SIGNED REPORT Exam EXAM: [facility] PROCEDURE: ABDOMEN AP ONLY Clinical Indication: Abdominal pain, Crohn's disease. Findings: Dr. Bowman has personally reviewed these images and formulated the interpretations and opinions expressed to this report. Comparison with prior abdominal x-ray of August 07, 2004. Right upper quadrant clips and suture material. No evidence of obstruction or free intra abdominal air. Impression ABDOMEN AP [facility] RAD ONLY IMPRESSION: NO EVIDENCE OF FREE AIR OR OBSTRUCTION. Residents: SILVINO MATHEWS Electronically signed on: Nov 09 20129:05AM by CYRUS BOWMAN Specimen Impressions Performed At ABDOMEN AP ONLY IMPRESSION: [facility] NO EVIDENCE OF FREE AIR OR OBSTRUCTION. Residents: SILVINO MATHEWS Electronically signed on: Nov 09 20129:05AM by CYRUS BOWMAN Narrative Performed At EXAM: [facility] RAD PROCEDURE: ABDOMEN AP ONLY Clinical Indication: Abdominal pain, Crohn's disease. Findings: Dr. Bowman has personally reviewed these images and formulated the interpretations and opinions expressed to this report. Comparison with prior abdominal x-ray of August 07, 2004. Right upper quadrant clips and suture material. No evidence of obstruction or free intra abdominal air. Performing Organization Address City/State/Zipcode Phone Number [facility] documented in this encounter Visit Diagnoses Diagnosis Crohn's disease (HCC) Regional enteritis of unspecified site Abdominal pain Abdominal pain, unspecified site documented in this encounter
--- OUTSIDE RECORDS SUMMARY | 2019-04-12 23:09 | XMS REPORT | Encounter Summary ---
Author Author [facility] Organization [facility] Address Unknown Phone Unavailable Care Team Providers Care Local Sales Associate Name Role Phone Barber Nguyen MD Unavailable Naveed Lockhart DO PCP Mychart, Generic Provider Unavailable Unavailable Encounter Details Care Team Description Date Type Department Moncho Odonnell MD [address] Ortho/Med Pavilion Lvl [address]B [place] [address] [phone] Regional enteritis of unspecified site 05/29/2014 Hospital [facility] [address] [address] Social History Date Tobacco Use Types Packs/Day [...] Progress Notes * Arturo Angulo RN - 06/20/2014 8:52 AM CDT Quick Note: Pt notified. * Arturo Angulo RN - 06/13/2014 4:09 PM CDT Quick Note: Attempted to contact pt. LM to call back. * Moncho Odonnell MD - 06/13/2014 1:59 PM CDT Quick Note: c dif is negative but elevated plt count and CRP suggest Crohn's is active. Nee d to get endoscopy completed. documented in this encounter Plan of Treatment Not on filedocumented as of this encounter Procedures Comments Procedure Name Priority Date/Time Associated Diagnosis C DIFFICILE BY PCR Routine 05/29/2014 Crohn's disease 8:38 PM CDT CBC AND DIFF Routine 05/29/2014 Crohn's disease 3:27 PM CDT C REACTIVE PROTEIN (CRP) Routine 05/29/2014 Crohn's disease 3:27 PM CDT COMPREHENSIVE METABOLIC Routine 05/29/2014 Crohn's disease PANEL 3:27 PM CDT documented in this encounter Results * C DIFFICILE BY PCR (05/29/2014 8:38 PM CDT) Battery Name C DIFFICILE PCR MAIN LAB Specimen FECES MAIN LAB Description Special NONE MAIN LAB Requests C. difficile NEGATIVE-wait 7 days to repeat MAIN LAB Toxin B PCR test Report Status FINAL MAIN LAB 05/30/2014 Specimen Feces Performing Organization Address [facility] Phone Number [facility] LAB [address] [place] [address] * C REACTIVE PROTEIN (CRP) (05/29/2014 3:27 PM CDT) C-Reactive 0.59 <1.0 MG/DL MAIN LAB Protein Specimen Blood - Blood Performing Organization Address City/[facility]/Zipcode Phone Number MAIN LAB [address] [place] [address] * COMPREHENSIVE METABOLIC PANEL (05/29/2014 3:27 PM CDT) Sodium 142 137 - 147 MMOL/L [facility] Potassium 3.3 (L) 3.5 - 5.1 MMOL/L [facility] Chloride 108 98 - 110 MMOL/L [facility] Glucose 85 70 - 100 MG/DL [facility] Blood Urea 8 7 - 25 MG/DL [facility] Nitrogen Creatinine 0.72 0.4 - 1.00 MG/DL [facility] Calcium 9.7 8.6 - 10.3 MG/DL [facility] Total Protein 7.2 6.0 - 8.0 G/DL [facility] Total Bilirubin 0.5 0.3 - 1.2 MG/DL [facility] Albumin 4.3 3.5 - 5.0 G/DL [facility] Alk Phosphatase 80 25 - 110 U/L [facility] AST (SGOT) 18 7 - 40 U/L [facility] CO2 28 21 - 30 MMOL/L [facility] ALT (SGPT) 22 7 - 56 U/L [facility] Anion Gap 6 (L) 8 - 12 [facility] MAIN [facility] eGFR Non >60 >60 ML/MIN/1.73 SQM [facility] Comment: Faroese The eGFR is not validated for use in drug dosing adjustments.Continue to use estimated creatinine clearance per dosing reference text.Please contact the Clinical Pharmacist for questions. eGFR >60 >60 ML/MIN/1.73 SQM [facility]IN [facility] [place] Comment: The eGFR is not validated for use in drug dosing adjustments.Continue to use estimated creatinine clearance per dosing reference text.Please contact the Clinical Pharmacist for questions. Specimen Blood - Blood Performing Organization Address City/State/Zipcode Phone Number MAIN LAB [address] [place] [address] * CBC AND DIFF (05/29/2014 3:27 PM CDT) White Blood 8.2 4.5 - 11.0 K/UL [facility] MAIN [facility] Cells RBC 4.58 4.0 - 5.0 M/UL [facility] MAIN [facility] Hemoglobin 13.8 12.0 - 15.0 GM/DL [facility] Hematocrit 41.8 36 - 45 % [facility]IN [facility] MCV 91.3 80 - 100 FL [facility] MAIN [facility] MCH 30.1 26 - 34 PG [facility]IN [facility] MCHC 33.0 32.0 - 36.0 G/DL [facility]IN [facility] RDW 14.3 11 - 15 % [facility] MAIN [facility] Platelet Count 407 (H) 150 - 400 K/UL [facility] MPV 6.9 (L) 7 - 11 FL [facility] Neutrophils 47 41 - 77 % [facility] Lymphocytes 41 24 - 44 % [facility] Monocytes 7 4 - 12 % [facility] Eosinophils 4 0 - 5 % [facility] Basophils 1 0 - 2 % [facility] Absolute 3.90 1.8 - 7.0 K/UL [facility] Neutrophil Count Absolute Lymph 3.30 1.0 - 4.8 K/UL [facility]IN [facility] Count Absolute 0.60 0 - 0.80 K/UL [facility]IN [facility] Monocyte Count Absolute 0.30 0 - 0.45 K/UL [facility]IN [facility] Eosinophil Count Absolute 0.00 0 - 0.20 K/UL [facility]IN [facility] Basophil Count Specimen Blood - Blood Performing Organization Address City/State/Zipcode Phone Number [facility]IN [facility] [address] [place] [address] documented in this encounter Visit Diagnoses Diagnosis Crohn's disease (HCC) Regional enteritis of unspecified site documented in this encounter
--- OUTSIDE RECORDS SUMMARY | 2019-04-12 23:09 | XMS REPORT | Encounter Summary ---
Author Author [facility] Organization [facility] Address Unknown Phone Unavailable Care Team Providers Care Roof Promenade Tile Setter Name Role Phone Barber Nguyen MD Unavailable Naveed Lockhart DO PCP Mychart, Generic Provider Unavailable Unavailable Reason for Referral * Consult, Test & Treat Referred By Contact Referred To Contact Status Reason Specialty Diagnoses / Procedures Moncho Odonnell MD [address] Ortho/Med Pavilion [address] [place] [address] Closed Specialty Services Diagnoses Required Crohn's disease (HCC) Scheduling Instructions Colon with MAC with Dr. Odonnell pls schedule [phone] (home) Reason for Visit * Reason Comments Crohn's Disease Encounter Details Care Team Description Date Type Department Moncho Odonnell MD [address] Ortho[facility] [address] [place] [address] [phone] Crohn's disease (Primary Dx); Noncompliance 05/29/2014 Office Visit [facility] Physicians - Internal Medicine [address] [facility] MED OFFICE BLDG [address] [address] Social History Date Tobacco Use [...] Signs Reading Time Taken Comments Vital Sign 125/96 05/29/2014 2:28 PM CDT Blood Pressure 88 05/29/2014 2:28 PM CDT Pulse 36.4 C (97.5 F) 05/29/2014 2:28 PM CDT Temperature 16 05/29/2014 2:28 PM CDT Respiratory Rate - - Oxygen Saturation - - Inhaled Oxygen Concentration 78 kg (172 lb) 05/29/2014 2:28 PM CDT Weight 160 cm (5' 3") 05/29/2014 2:28 PM CDT Height 30.47 05/29/2014 2:28 PM CDT Body Mass Index documented in this encounter Progress Notes * Moncho Odonnell MD - 05/29/2014 2:31 PM CDT 05/29/2014 Subjective: Mady Yoon is a 34 y.o. female. History of Present Illness Patient presents today, one and a half years since her last clinic visit. She reports that she initially had some response to oral mesalamine but then stopped it on her own due to bloating. Over the last 6 months she has lost over 20#. She reports she is largely able to only take PO liquids. She reports abdominal b loating and distention after eating. She reports two hospitalizations at [facility] [place] [place]. For worsening abdominal pain and diarrhea. She has reported frequent episodes of incontinence associated with urge. She reports nearly dante ly abdominal pain. Some days it can last up to 24 hours at a time and other days it may last for only a few hours at a time. Some associated nausea. She has con tinued to smoke and currently is smoking 8-10 cigarettes per day (I have told he r to stop this on multiple occasions, particularly with her h/o Crohn's). She r eports she was told she had C dif in [place] during her hospitalization but a recheck was negative (she denies treatment). She is averaging 5-10 loose BMs/d ay. She has had nighttime diarrhea. Prior to the end of our conversation she as ked to be considered for a surgical port. Past History: Reviewed and unchanged. ? hidradenitis Review of Systems Constitutional: Positive for diaphoresis, fatigue and unexpected weight change. HENT: Positive for ear pain, sneezing, neck pain, neck stiffness and sinus press ure. Eyes: Positive for photophobia and pain. Gastrointestinal: Positive for nausea, vomiting, abdominal pain, diarrhea, blood in stool and abdominal distention. Genitourinary: Positive for urgency. Neurological: Positive for dizziness, tremors, weakness and headaches. Psychiatric/Behavioral: Positive for agitation. All other systems reviewed and are negative. Objective: cetirizine (ZYRTEC) 10 mg tablet Take 10 mg by mouth daily. HYDROcodone/acetaminophen (NORCO; VICODIN) 5-325 mg tablet Take 1 Tab by keyana th every 6 hours as needed. Filed Vitals: 05/29/14 1428 BP: 125/96 Pulse: 88 Temp: 36.4 C (97.5 F) TempSrc: Oral Resp: 16 Height: 160 cm (63") Weight: 78.019 kg (172 lb) Body mass index is 30.48 kg/(m^2). Physical Exam Vitals reviewed. Constitutional: She is oriented to person, place, and time. She appears well-dev eloped and well-nourished. No distress. HENT: Head: Normocephalic and atraumatic. Mouth/Throat: No oropharyngeal exudate. Eyes: Right eye exhibits no discharge. No scleral icterus. Neck: Normal range of motion. No JVD present. No tracheal deviation present. [...] Bowel sounds are normal. She exhibits no mass. There is tendern ess (TTP in RLQ. NO mass or bowel loop appreciated). There is no rebound and no guarding. Abdominal scars of upper abdomen noted Musculoskeletal: Normal range of motion. She exhibits no edema and no tenderness . Lymphadenopathy: She has no cervical adenopathy. Neurological: She is alert and oriented to person, place, and time. Skin: Skin is warm and dry. She is not diaphoretic. Multiple tattoos throughout body and extremities Small (<1cm) papules noted in axillae B. No ulcerations. Psychiatric: She has a normal mood and affect. Her behavior is normal. Judgment and thought content normal. Assessment and Plan: 34 yo noncompliant female with Crohn's disease and h/o small bowel resectio n. She has a long history of noncompliance to medical recommendations and clinic al follow up. This has provided a major barrier to her care. She has had two re cent hospitalizations for abdominal pain and reports bowel wall thickening on a cross sectional imaging study at [facility]. Currently she is having diarrhea and abdominal pain, suggestive of active Crohn's disease. I will move forward with the followin)Will obtain CBC, CMP, CRP level now 2)Will check stool for C dif PCR 3)We will schedule a colonoscopy with MAC assistance to reevaluate activity of d isease 4)She must STOP smoking, the importance of this was stressed to her 5)F/U pending results. I continue to be VERY concerned about her noncompliance. This will likely hinder/limit what sort of therapy we will be able to offer her, at least in the short-term. 6)I have requested outside records from her recent hospitalizations including cr oss sectional imaging reports and discharge summaries. documented in this encounter Miscellaneous Notes * Outside Records - SCANNED DOCUMENT - 05/31/2014 9:25 AM CDT documented in this encounter Plan of Treatment Order Schedule Name Type Priority Associated Diagnoses Ordered: 05/29/2014 AMB REFERRAL TO GI LAB Outpatient Routine Crohn's disease FOR PROCEDURE Referral documented as of this encounter Results * C DIFFICILE BY PCR (05/29/2014 8:38 PM CDT) Battery Name C DIFFICILE PCR [facility] Specimen FECES [facility] Description Special NONE MAIN LAB Requests C. difficile NEGATIVE-wait 7 days to repeat MAIN LAB Toxin B PCR test Report Status FINAL MAIN LAB 05/30/2014 Specimen Feces Performing Organization Address City/State/Zipcode Phone Number MAIN LAB [address] [place] [address] * C REACTIVE PROTEIN (CRP) (05/29/2014 3:27 PM CDT) Pathologist [facility] C-Reactive 0.59 <1.0 MG/DL [facility] Protein Specimen Blood - Blood Performing Organization Address City/State/Zipcode Phone Number [facility] [address] [place] [address] * COMPREHENSIVE METABOLIC PANEL (05/29/2014 3:27 PM CDT) Pathologist [facility] Sodium 142 137 - 147 MMOL/L [facility] [...] >60 ML/MIN/1.73 SQM [facility] Comment: [place] The eGFR is not validated for use in drug dosing adjustments.Continue to use estimated creatinine clearance per dosing reference text.Please contact the Clinical Pharmacist for questions. eGFR >60 >60 ML/MIN/1.73 SQM [facility] [place] Comment: The eGFR is not validated for use in drug dosing adjustments.Continue to use estimated creatinine clearance per dosing reference text.Please contact the Clinical Pharmacist for questions. Specimen Blood - Blood Performing Organization Address City/State/Zipcode Phone Number [facility] [address] [place] [address] * CBC AND DIFF (05/29/2014 3:27 PM [...] Address City/State/Zipcode Phone Number [facility] [address] [place] [address] documented in this encounter Visit Diagnoses Diagnosis Crohn's disease (HCC) - Primary Regional enteritis of unspecified site Noncompliance Personal history of noncompliance with medical treatment, presenting hazards to health documented in this encounter
--- OUTSIDE RECORDS SUMMARY | 2019-04-12 23:09 | XMS REPORT | Encounter Summary ---
Author Author [facility] Organization [facility] Address Unknown Phone Unavailable Care Team Providers Care Agriculturist Name Role Phone Barber Nguyen MD Unavailable Moncho Odonnell MD PCP Reason for Visit * Reason Comments Other TIME SENSITIVE PAPERWORK REQUESTED Encounter Details Care Team Description Date Type Department Moncho Odonnell MD [address] [facility]Med [place] [address]vl [address] [place] [address] Other (TIME SENSITIVE PAPERWORK REQUESTED) 12/19/2012 Telephone [facility] Physicians - Internal Medicine [address] [facility] MED OFFICE BLDG 2ND [place] [address] Social History Date Tobacco Use [...] encounter Miscellaneous Notes * Telephone Encounter - Su Garay - 01/05/2013 9:51 AM CDT Call received from [place] at [employer], confirming that all paperwork was r eceived regarding pt's disability claim. * Telephone Encounter - Su Garay - 12/19/2012 2:28 PM ORTHODONTIC LABORATORY TECHNICIAN Call received regarding disability paperwork. The hearing was last week and the cradle placer is requiring the requested information from us no later than this December 23. Routing to Dr. Odonnell to notify. ODONTIC LABORATORY TECHNICIAN documented in this encounter Plan of Treatment Not on filedocumented as of this encounter Visit Diagnoses Not on filedocumented in this encounter
--- OUTSIDE RECORDS SUMMARY | 2019-04-12 23:09 | XMS REPORT | Encounter Summary ---
Author Author [facility] Organization [facility] Address Unknown Phone Unavailable Care Team Providers Care Process Development Engineer Name Role Phone Barber Nguyen MD Unavailable Moncho Odonnell MD PCP Reason for Visit * Reason Comments Medication Refill Requesting Pentasa refill Encounter Details Care Team Description Date Type Department Moncho Odonnell MD [address] [facility] Ortho/Med Pavilion [address]vl [address] [place], [place] [id number] 12/05/2012 Refill [facility] Physicians - Internal Medicine [address] [facility] MED OFFICE BLDG 2[address] [place] [address] Social History Date Tobacco Use [...] Miscellaneous Notes * Telephone Encounter - Su Menchaca - 12/07/2012 9:01 AM NEWSPAPER REPORTER Pt called, LVM. Pt notified that she may send Dr. Odonnell her disability ppwk for review. provided to pt. PAPER REPORTER * Telephone Encounter - Moncho Odonnell MD - 12/05/2012 5:40 PM NEWSPAPER REPORTER OK for refills. Ensure a chem-7 is done in the next month or so as mesalamine (P entasa) has rare reports of kidney problems with its use. PAPER REPORTER * Addendum Note - Su Menchaca - 12/05/2012 3:17 PM NEWSPAPER REPORTER Addended by: SU MENCHACA on: 12/05/2012 03:17 PM Modules accepted: Orders PAPER REPORTER * Telephone Encounter - Su Menchaca - 12/05/2012 3:17 PM NEWSPAPER REPORTER Please confirm that it is in fact ok to send out the said Pentasa samples... PAPER REPORTER * Telephone Encounter - Moncho Odonnell MD - 12/05/2012 3:02 PM NEWSPAPER REPORTER Have her send disability paperwork and I will review. PAPER REPORTER * Telephone Encounter - Su Menchaca - 12/05/2012 1:43 PM NEWSPAPER REPORTER Pt calling to request Pentasa refill (taking Pentasa 500mg caps, taking 4 caps b id), additional samples (15 boxes) mailed to pt by [employer]. Also requesting to be placed on Protonix and would like a Rx for pain meds (pt told to contact PCP) Pt requesting we write a letter for her as she is filing for disability, attempted to redirect pt to PCP for this matter, however she insists that they need info specific to her Crohns diagnosis. Routing to Dr. Odonnell for review. PAPER REPORTER documented in this encounter Plan of Treatment Not on filedocumented as of this encounter Visit Diagnoses Not on filedocumented in this encounter
--- OUTSIDE RECORDS SUMMARY | 2019-04-12 23:09 | XMS REPORT | Encounter Summary ---
Author Author [facility] Organization [facility] Address Unknown Phone Unavailable Care Team Providers Care Pressroom Foreman Name Role Phone Barber Nguyen MD Unavailable Moncho Odonnell MD PCP Reason for Visit * Reason Comments Error DUPLICATE ENCOUNTER Encounter Details Care Team Description Date Type Department Moncho Odonnell MD [address] Ortho/Med [place] [address]vl [address] [place] [address] Error (DUPLICATE ENCOUNTER) 12/19/[address] [facility] Physicians - Internal Medicine [address] [facility] MED OFF[facility] BLDG 2ND [place] [address] Social History Date Tobacco Use [...]
--- OUTSIDE RECORDS SUMMARY | 2019-04-12 23:09 | XMS REPORT | Encounter Summary ---
Author Author [facility] Organization [facility] Address Unknown Phone Unavailable Care Team Providers Care Joint Runner Name Role Phone Barber Nguyen MD Unavailable Moncho Odonnell MD PCP Reason for Visit * Reason Comments Other Labs ordered Encounter Details Care Team Description Date Type Department Moncho Odonnell MD [address] [facility]Med Pavilion Lvl [address] [place] [address] Other (Labs ordered) 12/06/[address] [facility] Physicians - Internal Medicine [address] MED OFFICE BLDG 2ND [place] [address] Social History Date Tobacco Use [...] * Telephone Encounter - Su Garay - 12/06/2012 12:49 PM MECHANICAL STRIPER Pt contacted, no answer message left: Notified Pentasa samples mailed and that Allen Odonnell has ordered labs for medication monitoring. ANICAL STRIPER documented in this encounter Plan of Treatment Order Schedule Name Type Priority Associated Diagnoses ONE TIME for 12 Occurrences starting 12/06/2012 until 12/25/2013 BASIC METABOLIC PANEL Lab Routine Medication monitoring encounter documented as of this encounter Visit Diagnoses Diagnosis Medication monitoring encounter Encounter for therapeutic drug monitoring documented in this encounter
--- OUTSIDE RECORDS SUMMARY | 2019-04-12 23:09 | XMS REPORT | Encounter Summary ---
Author Author [facility] Organization [facility] Address Unknown Phone Unavailable Care Team Providers Care Blockmason Name Role Phone Barber Nguyen MD Unavailable Naveed Lockhart DO PCP Mychart, Generic Provider Unavailable Unavailable Encounter Details Care Team Description Date Type Department Moncho Odonnell MD [address] [facility] Ortho/Med Pavilion [address]vl [address] [place] [address] 05/30/2014 Orders Only [facility] Physicians - Internal Medicine [address] [facility] MED OFFICE BLDG 2ND [place] [address] Social History Date Tobacco Use [...] Progress Notes * Moncho Odonnell MD - 05/30/2014 11:23 PM CDT Quick Note: Outside CT with evidence of ileitis. documented in this encounter Plan of Treatment Not on filedocumented as of this encounter Procedures Comments Procedure Name Priority Date/Time Associated Diagnosis C.DIFFICILE CYTOTOXIN AB Routine 05/11/2014 CT ABD/PELV W CONTRAST Routine 05/10/2014 CT ABD/PELV W CONTRAST Routine 02/22/2014 CT ABD/PELV W CONTRAST Routine 01/17/2014 documented in this encounter Results * C.DIFFICILE CYTOTOXIN AB (05/11/2014) Narrative Performed At Performing Organization Address [place] [facility] Phone Number OTHER OUTSIDE LAB * CT ABD/PELV W CONTRAST (05/10/2014) Narrative Performed At Performing Organization Address [place] [facility] [facility] Phone Number OTHER OUTSIDE RADIOLOGY * CT ABD/PELV W CONTRAST (02/22/2014) Narrative Performed At Performing Organization Address [place] [facility] Phone Number OTHER OUTSIDE RADIOLOGY * CT ABD/PELV W CONTRAST (01/17/2014) Narrative Performed At Performing Organization Address [place] [facility] [facility] Phone Number OTHER OUTSIDE RADIOLOGY documented in this encounter Visit Diagnoses Not on filedocumented in this encounter
--- OUTSIDE RECORDS SUMMARY | 2019-04-12 23:10 | XMS REPORT | Encounter Summary ---
Author Author [facility] Organization [facility] Address Unknown Phone Unavailable Care Team Providers Care Pulp Roller Name Role Phone Barber Nguyen MD Unavailable Self, Referral PCP Unavailable Encounter Details Care Team Description Date Type Department Moncho Odonnell MD [address] Ortho/Med Pavilion Lvl [address] [place] [address] 06/24/2012 Hospital Infusion Therapy Clinic Encounter Main [facility] [address]th al [address] [place], [place] [id number] Social History Date Tobacco Use Types Packs/Day [...] Every 4 Hours as needed for Pain. 05/29/2014 INFLIXIMAB (REMICADE IV) Administer 1 0 Each through vein every 30 days. 06/22/2012 05/29/2014 mercaptopurine Take 2 Tabs 60 Tab 0 (PURINETHOL) 50 mg by mouth tabletIndications: daily. Crohn's 05/29/2014 PREDNISONE 20 mg tablet Take 40 mg by 0 mouth Daily. documented as of this encounter Plan of Treatment Not on filedocumented as of this encounter Visit Diagnoses Not on filedocumented in this encounter
--- OUTSIDE RECORDS SUMMARY | 2019-04-12 23:10 | XMS REPORT | Encounter Summary ---
Author Author [facility] Organization [facility] Address Unknown Phone Unavailable Care Team Providers Care Analytical Statistician Name Role Phone Barber Nguyen MD Unavailable Self, Referral PCP Unavailable Reason for Visit * Reason Comments Medication Question Encounter Details Care Team Description Date Type Department Moncho Odonnell MD [address] Ortho/Med Pavilion [address]vl [address] [place] [address] [phone] Medication Question 06/28/2012 Telephone [facility] Physicians - Internal Medicine [address] [place] [address] Social History Date Tobacco Use Types Packs/Day [...] encounter Miscellaneous Notes * Telephone Encounter - Breanna Stephen LPN - 06/29/2012 10:16 AM CDT Ok per Dr. Odonnell to start hyoscyamine for stomach cramps. Left message for angel ent * Telephone Encounter - Breanna Stephen LPN - 06/28/2012 3:50 PM CDT Patient calling stating has been taking 6mp at the same time every day, and stat es 2hrs before supposed to take med, has severe stomach cramps. States in school today doubled over in pain. She is asking if there is anything she can take for the stomach cramps. Please advise documented in this encounter Plan of Treatment Not on filedocumented as of this encounter Visit Diagnoses Not on filedocumented in this encounter
--- OUTSIDE RECORDS SUMMARY | 2019-04-12 23:10 | XMS REPORT | Encounter Summary ---
Author Author [facility] Organization [facility] Address Unknown Phone Unavailable Care Team Providers Care Service Tester Name Role Phone Barber Nguyen MD Unavailable Self, Referral PCP Unavailable Reason for Visit * Reason Comments Medication Question Encounter Details Care Team Description Date Type Department Moncho Odonnell MD [address] Ortho/Med Pavilion [address]vl [address] [place], [place] [id number] Medication Question 07/08/2012 Telephone [facility] Physicians - Internal Medicine [address] [place] [address] Social History Date Tobacco Use Types Packs/Day [...] Telephone Encounter - Breanna Stephen LPN - 07/14/2012 11:57 AM CDT Notified patient that Dr. Odonnell does not think that described symptoms below ar e GI or 6mp related and advised her to go to doctor or local ER for workup. Babs ent verbalized understanding. Also reminded her of appt next Wednesday and to do another CBC. Patient verbalized understanding * Telephone Encounter - Breanna Stephen LPN - 07/11/2012 8:51 AM CDT Left message with Mady to keep appointment with That she has this week, y es last CBC done was 9.11.12. I can fax to you or can keep for your review on . * Telephone Encounter - Moncho Odonnell MD - 07/10/2012 9:31 PM CDT I don't believe her symptoms are related to 6-MP, please restart and continue we ekly CBC with diffs. Have we seen any recently? * Telephone Encounter - Breanna Stephen LPN - 07/08/2012 11:33 AM CDT Patient calling back asking about 6mp please read last phone entry and advise Local Did not do urine test today and told her to stop her 6mp and see him n ext wed/wed. Pain still flank area and chest, SOB, tongue sore tasting blood in throat. When takes meds skin turns red. These symptoms weren't mentioned to me y she didn't think to tell me about additional symptoms because she was w orried about diarrhea. Please advise documented in this encounter Plan of Treatment Not on filedocumented as of this encounter Visit Diagnoses Not on filedocumented in this encounter
--- OUTSIDE RECORDS SUMMARY | 2019-04-12 23:10 | XMS REPORT | Encounter Summary ---
Author Author [facility] Organization [facility] Address Unknown Phone Unavailable Care Team Providers Care Lineman Name Role Phone Barber Nguyen MD Unavailable Moncho Odonnell MD PCP Reason for Referral * Referred By Contact Referred To Contact Status Reason Specialty Diagnoses / Procedures [facility] [address] [place] [place] [address] Closed Diagnoses Crohn's P rocedures CBC AND DIFF * Referred By Contact Referred To Contact Status Reason Specialty Diagnoses / Procedures [facility] [address] [place] [address] Closed Diagnoses Crohn's P rocedures CBC AND DIFF Encounter Details Care Team Description Date Type Department Moncho Odonnell MD [address] Ortho/Med [place]ilion [address]vl [address] [place] [address] [phone] Regional enteritis of unspecified site 06/22/2012 [facility] [address] [place] [address] Social History Date Tobacco Use Types Packs/Day [...] Comments Procedure Name Priority Date/Time Associated Diagnosis HEPATITIS C AB Routine 06/22/2012 Regional enteritis of 9:41 AM CDT unspecified site (HCC) HEPATITIS B SURFACE AG Routine 06/22/2012 Regional enteritis of 9:41 AM CDT unspecified site (HCC) HEPATITIS B SURFACE AB Routine 06/22/2012 Regional enteritis of 9:41 AM CDT unspecified site (HCC) CBC AND DIFF Routine 06/22/2012 Crohn's 9:41 AM CDT COMPREHENSIVE METABOLIC Routine 06/22/2012 Crohn's PANEL 9:41 AM CDT documented in this encounter Results * HEPATITIS C AB (06/22/2012 9:41 AM CDT) Anti HCV NEG [facility] Specimen Performing Organization Address [facility] Phone Number [facility] * HEPATITIS B SURFACE AB (06/22/2012 9:41 AM CDT) Anti HBs 446.9 mIU/ml [facility] Comment: Hepatitis B Surface Antibody Reference Ranges >12.0 Positive 8.0-12.0Equivocal <8.0Negative Specimen Performing Organization Address [facility] Phone Number [facility] * HEPATITIS B SURFACE AG (06/22/2012 9:41 AM CDT) HBsAg NEG [facility] Specimen Performing Organization Address [facility] Phone Number [facility] * COMPREHENSIVE METABOLIC PANEL (06/22/2012 9:41 AM CDT) Sodium 140 137 - 147 MMOL/L [facility] Potassium 4.0 3.5 - 5.1 MMOL/L [facility] Chloride 106 98 - 110 MMOL/L [facility] Glucose 86 70 - 100 MG/DL [facility] Blood Urea 5 (L) 8 - 20 MG/DL [facility] Nitrogen Creatinine 0.73 0.4 - 1.00 MG/DL [facility] Calcium 9.5 9.0 - 11.0 MG/DL [facility] Total Protein 6.6 6.0 - 8.0 G/DL [facility] Total Bilirubin 0.4 0.3 - 1.2 MG/DL [facility] Albumin 3.9 3.5 - 5.0 G/DL [facility] Alk Phosphatase 79 25 - 110 U/L [facility] AST (SGOT) 27 7 - 40 U/L [facility] CO2 27 21 - 30 MMOL/L [facility] ALT (SGPT) 35 7 - 56 U/L [facility] Anion Gap 7 (L) 8 - 12 [facility] eGFR Non >60 >60 ML/MIN/1.73 SQM [facility] Comment: Egyptian The eGFR is not validated for use in drug dosing adjustments.Continue to use estimated creatinine clearance per dosing reference text.Please contact the Clinical Pharmacist for questions. eGFR >60 >60 ML/MIN/1.73 SQM [facility] Egyptian Comment: The eGFR is not validated for use in drug dosing adjustments.Continue to use estimated creatinine clearance per dosing reference text.Please contact the Clinical Pharmacist for questions. Specimen Blood - Blood Performing Organization Address City/State/Zipcode Phone Number [facility] * CBC AND DIFF (06/22/2012 9:41 AM CDT) White Blood 7.0 4.5 - 11.0 K/UL [facility] Cells RBC 4.10 4.0 - 5.0 M/UL [facility] Hemoglobin 13.6 12.0 - 15.0 GM/DL [facility] Hematocrit 40.2 36 - 45 % [facility] MCV 98.0 80 - 100 FL [facility] MCH 33.0 26 - 34 PG [facility] MCHC 34.0 32.0 - 36.0 G/DL [facility] RDW 14.1 11 - 15 % [facility] Platelet Count 339 150 - 400 K/UL [facility] MPV 7.0 7 - 11 FL [facility] Neutrophils 41 41 - 77 % [facility] Lymphocytes 45 (H) 24 - 44 % [facility] Monocytes 8 4 - 12 % [facility] Eosinophils 5 0 - 5 % [facility] Basophils 1 0 - 2 % [facility] Absolute 2.88 1.8 - 7.0 K/UL [facility] Neutrophil Count Absolute Lymph 3.14 1.0 - 4.8 K/UL [facility] Count Absolute 0.58 0 - 0.80 K/UL [facility] Monocyte Count Absolute 0.38 0 - 0.45 K/UL [facility] Eosinophil Count Absolute 0.04 0 - 0.20 K/UL [facility] Basophil Count Specimen Blood - Blood Performing Organization Address City/State/Zipcode Phone Number [facility] documented in this encounter Visit Diagnoses Diagnosis Crohn's Regional enteritis of unspecified site documented in this encounter
--- OUTSIDE RECORDS SUMMARY | 2019-04-12 23:10 | XMS REPORT | Encounter Summary ---
Author Author [facility] Organization [facility] Address Unknown Phone Unavailable Care Team Providers Care Annual Giving Officer Name Role Phone Barber Nguyen MD Unavailable Moncho Odonnell MD PCP Reason for Visit * Reason Comments Crohn's Disease Encounter Details Care Team Description Date Type Department Moncho Odonnell MD [address] [facility] Ortho/Med Pavilion [address]vl [address] [place], [place] [id number] Crohn's disease; Abdominal pain 11/09/2012 Office Visit [facility] Physicians - Internal Medicine [address] [facility] MED OFFICE [address] [address] Social History Date Tobacco Use [...] Signs Reading Time Taken Comments Vital Sign 125/92 11/08/2012 4:05 PM PANTRY GOODS MAKER Blood Pressure 95 11/08/2012 4:05 PM PANTRY GOODS MAKER Pulse 36.1 C (97 F) 11/08/2012 4:05 PM PANTRY GOODS MAKER Temperature 14 11/08/2012 4:05 PM PANTRY GOODS MAKER Respiratory Rate - - Oxygen Saturation - - Inhaled Oxygen Concentration 89.8 kg (198 lb) 11/08/2012 4:05 PM PANTRY GOODS MAKER Weight 162.6 cm (5' 4") 11/08/2012 4:05 PM PANTRY GOODS MAKER Height 33.99 11/08/2012 4:05 PM PANTRY GOODS MAKER Body Mass Index documented in this encounter Patient Instructions * Patient Instructions* Moncho Odonnell MD - 11/08/2012 5:05 PM PANTRY GOODS MAKER 1)Get labs and xrays completed today 2)Start Pentasa samples (500mg caplets)- Take four caplets twice daily. Please call us when you have about one week left, so we can get you more samples RY GOODS MAKER documented in this encounter Progress Notes * Moncho Odonnell MD - 11/08/2012 4:05 PM PANTRY GOODS MAKER Subjective: History of Present Illness Mady Yoon is a 32 y.o. female. She presents in f/u today of Crohn's disease. Continues to report some diffic ulties with abdominal pain and blood in the stool. She has not been utilizing an y medications for Crohn's at this time. Previously intolerant of immunomodulator s and has had compliance issues with regards to taking medications and following in clinics Review of Systems Constitutional: Positive for fatigue. HENT: Positive for congestion. Gastrointestinal: Positive for nausea, abdominal pain, blood in stool and rectal pain. Musculoskeletal: Positive for back pain. Neurological: Positive for headaches. All other systems reviewed and are negative. Objective: hyoscyamine (ANASPAZ; NULEV; SYMAX FASTABS; HYOMAX-FT; ED-SPAZ; OSCIMIN) 0.1 [address] 1 Tab under tongue every 4 hours as needed for Cramps. cetirizine (ZYRTEC) 10 mg tablet Take 10 mg by mouth daily. INFLIXIMAB (REMICADE IV) Administer 1 Each through vein every 30 days. mercaptopurine (PURINETHOL) 50 mg tablet Take 2 Tabs by mouth daily. PREDNISONE 20 mg tablet Take 40 mg by mouth Daily. HYDROCODONE/ACETAMINOPHEN 5/500 mg tablet Take 2 Tabs by mouth Every 4 Hours as needed for Pain. There were no vitals filed for this visit. There is no height or weight on file to calculate BMI. Physical Exam Constitutional: She is oriented to person, place, and time. She appears well-dev eloped and well-nourished. No distress. HENT: Head: Normocephalic and atraumatic. Mouth/Throat: No oropharyngeal exudate. Eyes: Conjunctivae are normal. Pupils are equal, round, and reactive to light. N o scleral icterus. Neck: Normal range of motion. Neck supple. No JVD present. No tracheal deviation present. No thyromegaly present. Cardiovascular: Normal rate, regular rhythm and normal heart sounds. Exam revea ls no gallop and no friction rub. No murmur heard. Pulmonary/Chest: Effort normal and breath sounds normal. No stridor. No respirat ory distress. She has no rales. She exhibits no tenderness. Abdominal: Soft. Bowel sounds are normal. She exhibits no distension and no mass . There is tenderness (Diffusely TTP. NO masses or fullness noted). There is no rebound and no guarding. Lymphadenopathy: She has no cervical adenopathy. Neurological: She is alert and oriented to person, place, and time. No cranial n erve deficit. Skin: Skin is warm and dry. She is not diaphoretic. Multiple tattoos noted Assessment and Plan: 1)Crohn's disease- Management of Mady has been extremely challenging. She h as a long history of recurrent noncompliance whether this manifests itself as mi ssing f/u clinic appointments, having non working phone numbers where she cannot be reached/not returning phone calls, not f/u with scheduled labs. I have tria led her on immunomodulators in the past, and she reported intolerance. Injectab le/infusable biologics are problematic due to her noncompliance. Will start with mesalamine (Pentasa) 1 gram QID and schedule f/u. I will continue to work dili gently with this patient, but her h/o noncompliance has and likely will make rosy g term effective management exceptionally challenging 2)F/U in three to four months in clinic. RY GOODS MAKER documented in this encounter Plan of Treatment Order Schedule Name Type Priority Associated Diagnoses Expected: 11/08/2012, Expires: 11/08/2013 C DIFFICILE BY PCR Microbiology Routine Crohn's disease Abdominal pain documented as of this encounter Results * C REACTIVE PROTEIN (CRP) (11/08/2012 5:56 PM PANTRY GOODS MAKER) Pathologist [facility] C-Reactive 0.52 <1.0 MG/DL [facility] Protein Specimen Blood - Blood Performing Organization Address City/State/Zipcode Phone Number [facility] * COMPREHENSIVE METABOLIC PANEL (11/08/2012 5:56 PM PANTRY GOODS MAKER) Pathologist [facility] Sodium 140 137 - 147 MMOL/L [facility] [...] >60 ML/MIN/1.73 SQM [facility] Comment: Ecuadorean The eGFR is not validated for use in drug dosing adjustments.Continue to use estimated creatinine clearance per dosing reference text.Please contact the Clinical Pharmacist for questions. eGFR >60 >60 ML/MIN/1.73 SQM [facility] Ecuadorean Comment: The eGFR is not validated for use in drug dosing adjustments.Continue to use estimated creatinine clearance per dosing reference text.Please contact the Clinical Pharmacist for questions. Specimen Blood - Blood Performing Organization Address City/State/Zipcode Phone Number [facility] * CBC AND DIFF (11/08/2012 5:56 PM PANTRY GOODS MAKER) Pathologist [facility] White Blood 7.8 4.5 - 11.0 K/UL [...] City/State/Zipcode Phone Number [facility] RES[facility] * ABDOMEN AP ONLY (11/08/2012 5:47 PM PANTRY GOODS MAKER) Exam Status [facility] SIGNED REPORT Exam EXAM: [facility] PROCEDURE: ABDOMEN AP ONLY Clinical Indication: Abdominal pain, Crohn's disease. Findings: Dr. Bowman has personally reviewed these images and formulated the interpretations and opinions expressed to this report. Comparison with prior abdominal x-ray of August 07, 2004. Right upper quadrant clips and suture material. No evidence of obstruction or free intra abdominal air. Impression [facility] IMPRESSION: NO EVIDENCE OF FREE AIR OR OBSTRUCTION. Residents: SILVINO MATHEWS Electronically signed on: Nov 09 20129:05AM by CYRUS BOWMAN Specimen Impressions Performed At ABDOMEN AP ONLY IMPRESSION: [facility] NO EVIDENCE OF FREE AIR OR OBSTRUCTION. Residents: SILVINO MATHEWS Electronically signed on: Nov 09 20129:05AM by CYRUS BOWMAN Narrative Performed At EXAM: [facility] PROCEDURE: ABDOMEN AP ONLY Clinical Indication: Abdominal pain, Crohn's disease. Findings: Dr. Bowman has personally reviewed these images and formulated the interpretations and opinions expressed to this report. Comparison with prior abdominal x-ray of August 07, 2004. Right upper quadrant clips and suture material. No evidence of obstruction or free intra abdominal air. Performing Organization Address City/State/Zipcode Phone Number [facility] documented in this encounter Visit Diagnoses Diagnosis Crohn's disease (HCC) Regional enteritis of unspecified site Abdominal pain Abdominal pain, unspecified site documented in this encounter
--- OUTSIDE RECORDS SUMMARY | 2019-04-12 23:10 | XMS REPORT | Encounter Summary ---
Author Author [facility] Address Unknown Phone Unavailable Care Team Providers Care Boiler Welder Name Role Phone Barber Nguyen MD Unavailable Self, Referral PCP Unavailable Reason for Visit * Reason Comments Medication Problem Encounter Details Care Team Description Date Type Department Moncho Odonnell MD [address] Ortho/Med Pavilion [address]vl [address] [place] [address] [phone] 06/29/2012 Refill [facility] Physicians - Internal Medicine [address] [place] [address] Social History Date Tobacco Use Types Packs/Day [...] Telephone Encounter - Breanna Stephen LPN - 06/30/2012 12:11 PM CDT Notified patient of Peppermint oil supplement verbalized understanding. Also Sta julio cesar will get bloodwork done tomorrow or Wednesday, is at school all day today * Telephone Encounter - Moncho Odonnell MD - 06/30/2012 9:09 AM CDT Please ask her to consider purchasing a peppermint oil supplement which also has antispasmotic properties. An example would be [employer] Pepogest which she can get on [employer]. If she purchases this she should take it as directed on packaging. On the website it looks like its $10 for sixty pills. Thanks * Telephone Encounter - Breanna Stephen LPN - 06/29/2012 3:56 PM CDT Hyoscyamine not covered under plan any other med suggestions. Thanks!! documented in this encounter Plan of Treatment Not on filedocumented as of this encounter Visit Diagnoses Not on filedocumented in this encounter
--- OUTSIDE RECORDS SUMMARY | 2019-04-12 23:10 | XMS REPORT | Encounter Summary ---
Author Author [facility] Organization [facility] Address Unknown Phone Unavailable Care Team Providers Care Three Dimensional Map Modeler Name Role Phone Barber Nguyen MD Unavailable Self, Referral PCP Unavailable Reason for Visit * Reason Comments General Question Encounter Details Care Team Description Date Type Department Moncho Odonnell MD [address] Ortho/Med Pavilion Lvl [address] [place], [place] [id number] General Question 09/08/2012 Telephone [facility] Physicians - Internal Medicine [address] [facility] [place] [address] Social History Date Tobacco Use Types Packs/Day [...] encounter Miscellaneous Notes * Telephone Encounter - Moncho Odonnell MD - 10/07/2012 3:17 PM PRODUCTION SORTER Patient no showed for clinic visit again. I have previously attempted to contac t her at a number she gave our office which was a nonworking number. Will await her followup in GI clinic UCTION SORTER * Telephone Encounter - Breanna Stephen LPN - 09/08/2012 1:51 PM PRODUCTION SORTER Calling stating never heard back from you after last message. Stating bleeding a gain and has pain. Doesn't want to go to hospital there, really wants to speak t o you. [phone] please advise UCTION SORTER documented in this encounter Plan of Treatment Not on filedocumented as of this encounter Visit Diagnoses Not on filedocumented in this encounter
--- OUTSIDE RECORDS SUMMARY | 2019-04-12 23:10 | XMS REPORT | Encounter Summary ---
Author Author [facility] Organization [facility] Address Unknown Phone Unavailable Care Team Providers Care Progress Man Name Role Phone Barber Nguyen MD Unavailable Self, Referral PCP Unavailable Reason for Visit * Reason Comments General Question Encounter Details Care Team Description Date Type Department Moncho Odonnell MD [address] Ortho/Med Pavilion Lvl [address] [place] [address] [phone] General Question 08/11/2012 Telephone [facility] Physicians - Internal Medicine [address] [place] [address] Social History Date Tobacco Use Types Packs/Day [...] Telephone Encounter - Breanna Stephen LPN - 08/11/2012 11:[address] Odonnell attempted to call patient no answer. Left message stating will be out of town and will call back when in clinic next documented in this encounter Plan of Treatment Not on filedocumented as of this encounter Visit Diagnoses Not on filedocumented in this encounter
--- OUTSIDE RECORDS SUMMARY | 2019-04-12 23:10 | XMS REPORT | Encounter Summary ---
Author Author [facility] Organization [facility] Address Unknown Phone Unavailable Care Team Providers Care Art Handler Name Role Phone Barber Nguyen MD Unavailable Self, Referral PCP Unavailable Reason for Visit * Reason Comments Results Encounter Details Care Team Description Date Type Department Moncho Odonnell MD [address] Ortho/Med Pavilion [address] [place] [address] Results 08/03/2012 Telephone [facility] Physicians - Internal Medicine [address] [place] [address] Social History Date Tobacco Use [...] Telephone Encounter - Moncho Odonnell MD - 08/03/2012 3:40 PM CDT I have attempted to call two separate numbers to reach the patient which we had on file. I discussed with my nurse. Neither is a working number. documented in this encounter Plan of Treatment Not on filedocumented as of this encounter Visit Diagnoses Not on filedocumented in this encounter
--- OUTSIDE RECORDS SUMMARY | 2019-04-12 23:10 | XMS REPORT | Encounter Summary ---
Author Author [facility] Organization [facility] Address Unknown Phone Unavailable Care Team Providers Care Arabic Linguist Name Role Phone Barber Nguyen MD Unavailable Self, Referral PCP Unavailable Reason for Visit * Reason Comments Medical Question Encounter Details Care Team Description Date Type Department Moncho Odonnell MD [address] Ortho/Med Pavilion Lvl [address] [place], [place] [phone] Medical Question 07/05/2012 Telephone [facility] Physicians - Internal Medicine [address] [place] [address] Social History Date Tobacco Use Types Packs/Day [...] Telephone Encounter - Breanna Stephen LPN - 07/06/2012 11:47 AM CDT Local Did not do urine test today and told her to stop her 6mp and see him n ext wed/wed. Pain still flank area and chest, SOB, tongue sore tasting blood in throat. When takes meds skin turns red. These symptoms weren't mentioned to me y esterday she didn't think to tell me about additional symptoms because she was w orried about diarrhea. Please advise * Telephone Encounter - Moncho Odonnell MD - 07/06/2012 11:32 AM CDT Agree with having local doctor se her today. Could be UTI * Telephone Encounter - Breanna Stephen LPN - 07/05/2012 11:19 AM CDT Phone call from patient today, stating c/o flank pain "feeling like being kicked in the kidney. Diarrhea x 10today no blood some mucus yellow in color. No fever noted some nausea. Drinking plenty of fluids. Also states has been taking medic ation as prescribed, but has been unable to get peppermint supplement due to fin ances. Did obtain labs today, which have been faxed to my office all look benign , can fax to you so you may confirm. I advised the patient to see her local doct or to be check over and make sure she didn't have UTI or kidney infection dariel fan of described symptoms. Please review and advise documented in this encounter Plan of Treatment Not on filedocumented as of this encounter Visit Diagnoses Not on filedocumented in this encounter
--- OUTSIDE RECORDS SUMMARY | 2019-04-12 23:10 | XMS REPORT | Encounter Summary ---
Author Author [facility] Organization [facility] Address Unknown Phone Unavailable Care Team Providers Care Progressive Die Maker Name Role Phone Barber Nguyen MD Unavailable Self, Referral PCP Unavailable Reason for Visit * Reason Comments Results Encounter Details Care Team Description Date Type Department Moncho Odonnell MD [address] Ortho/Med Pavilion [address] [place] [address] Results 08/03/2012 Telephone [facility] Physicians - Internal Medicine [address] [place] [address] Social History Date Tobacco Use [...] Encounter - Moncho Odonnell MD - 08/03/2012 3:34 PM CDT Breanna I have tried to contact Mady by the cell number listed in O2 and it seems t his number is not a currently functioning number. Is there another number by george winters she can be reached? documented in this encounter Plan of Treatment Not on filedocumented as of this encounter Visit Diagnoses Not on filedocumented in this encounter
--- OUTSIDE RECORDS SUMMARY | 2019-04-12 23:11 | XMS REPORT | Encounter Summary ---
Author Author [facility] Organization [facility] Address Unknown Phone Unavailable Care Team Providers Care Heating And Air Conditioning Mechanic Name Role Phone Barber Nguyen MD Unavailable Moncho Odonnell MD PCP Reason for Visit * Reason Comments Abdominal pain Encounter Details Care Team Description Date Type Department Moncho Odonnell MD [address] [facility] Ortho/Med Pavilion [address] [place] [address] Abdominal pain 03/04/2012 Telephone [facility] Physicians - Internal Medicine [address] [facility] MED OFFICE [address] [place] [address] Social History Date Tobacco Use Types Packs/Day Years Used Current Every Day Smoker 1 11 Drinks/Week oz/Week Comments Alcohol Use No Sex Assigned at Date Recorded Not on file Industry Job Start Date Occupation Not on file Not on file Not on file Travel End Travel History Travel Start No recent travel history available. documented as of this encounter Miscellaneous Notes * Telephone Encounter - Carolina Watts - 03/04/2012 4:04 PM CDT Pt called and states she is having difficulty getting in contact with anyone at [facility]. I apologized to pt and we discussed her current symptoms of abd pn, nause a, and tiredness. Dr. Odonnell aware. Pt instructed that if symptoms continue or worsen that she needs to go to ER. Pt reinstructed that she needs to complete labs and xray. She is also to have TB skin test faxed to us. Pt states underst anding and agreeable to completion of above. documented in this encounter Plan of Treatment Not on filedocumented as of this encounter Visit Diagnoses Not on filedocumented in this encounter
--- OUTSIDE RECORDS SUMMARY | 2019-04-12 23:11 | XMS REPORT | Encounter Summary ---
Author Author [facility] Organization [facility] Address Unknown Phone Unavailable Care Team Providers Care Electronic Warfare Specialist Name Role Phone Barber Nguyen MD Unavailable Self, Referral PCP Unavailable Encounter Details Care Team Description Date Type Department Moncho Odonnell MD [address] Ortho/Med Pavilion Lvl 2B [place], [place] [id number] 05/30/2012 Hospital Infusion Therapy Clinic Encounter Main [facility] [address] [place], [place] [id number] Social History Date Tobacco Use Types Packs/Day [...] Date End Date Medication Sig Dispensed Refills 05/29/2014 HYDROCODONE/ACETAMINOPHEN Take 2 Tabs 0 5/500 mg tablet by mouth Every 4 Hours as needed for Pain. 05/29/2014 PREDNISONE 20 mg tablet Take 40 mg by 0 mouth Daily. 06/22/2012 RANITIDINE,+, 300 mg Take 300 mg 0 tablet by mouth Daily. documented as of this encounter Plan of Treatment Not on filedocumented as of this encounter Visit Diagnoses Not on filedocumented in this encounter
--- OUTSIDE RECORDS SUMMARY | 2019-04-12 23:11 | XMS REPORT | Encounter Summary ---
Author Author [facility] Organization [facility] Address Unknown Phone Unavailable Care Team Providers Care Services Engineer Name Role Phone Barber Nguyen MD Unavailable Self, Referral PCP Unavailable Encounter Details Care Team Description Date Type Department Moncho Odonnell MD [address] Ortho/Med Pavilion Lvl 2B [place], [place] [id number] Regional enteritis of small intestine (HCC) 04/13/2012 Hospital Infusion Therapy Clinic Encounter Main [address] [place], [place] [id number] Social History Date Tobacco Use Types Packs/Day [...] Signs Reading Time Taken Comments Vital Sign - - Blood Pressure - - Pulse - - Temperature - - Respiratory Rate - - Oxygen Saturation - - Inhaled Oxygen Concentration 89.1 kg (196 lb 6.9 oz) 04/13/2012 9:00 AM CDT Weight - - Height 35.93 12/19/2008 1:28 PM DESIGN DRAFTER CHIEF Body Mass Index documented in this encounter [...] Dose Rate Site Medication Order MAR Action 04/13/2012 10:00 AM CDT 400 mg 145 mL/hr inFLIXimab (REMICADE) 400 mg in sodium Given chloride 0.9% (NS) IVPB 400 mg, Intravenous, 290 mL, Administer over 2 Hours, ONCE, 1 dose, Wed04/13/12 at 0945, Flush with 15-20ml NS after infusion. Nursing: Administer using Prolify filter set [id number]., 04/13/2012 12:20 PM CDT SODIUM CHLORIDE 0.9 % IV SOLP (AcuDose Given pull) NOW, 1 dose, Wed04/13/12 at 1015, Randi Mayes: cabinet override, Randi Mayes: cabinet override, documented in this encounter
--- OUTSIDE RECORDS SUMMARY | 2019-04-12 23:11 | XMS REPORT | Encounter Summary ---
Author Author [facility] Organization [facility] Address Unknown Phone Unavailable Care Team Providers Care Corporate Compliance Officer Name Role Phone Barber Nguyen MD Unavailable Moncho Odonnell MD PCP Reason for Visit * Reason Comments Diarrhea Encounter Details Care Team Description Date Type Department Moncho Odonnell MD [address] [facility] Ortho/Med Pavilion Lvl 2B [place] [address] Diarrhea 02/26/2012 Telephone [facility] Physicians - Internal Medicine [address] [facility] MED OFFICE [address]LD[address] 2ND [place] [address] Social History Date Tobacco Use [...] * Telephone Encounter - Carolina Watts - 02/29/2012 8:11 AM ANDRÉS Crawford, drake is a [facility] pt. I am having Dr. Odonnell sign orders for remicade and wi ll forward to [facility] for you. Pls follow up everything else and call phuong palient at [phone] to discuss below with her. I will also put her phone # in IDX since it was not one of the listed #'s. * Telephone Encounter - Ty Calhoun - 02/26/2012 12:33 PM CDT Patient returned call. Explained to her that her current TB test was likely too old and that we would need to get a new one prior to her starting Rem[employer]. Th at it appears all orders for blood work and TB testing have been placed in the s yste. Patient drives up from [place] and will come to [facility] to do this. I gave her Carolina Watts' phone number to confirm that this is how she wants to proceed and for any additional information she might want to relay from Dr. Odonnell. * Telephone Encounter - Carolina Watts - 02/26/2012 11:[address] Odonnell: Please get TB skin test, PA and Lateral CXR, Hep B s Ag and Hep B s Ab, Hep C antibody now Please precertify for Remicade 5mg/kg on week 0,2,6 and then every 8 week lisa stout. I attempted to call pt on home # [phone], work [phone], emergency cont act Cora [phone]- all numbers were non-working #s' besides her work # w singh had never heard of her. I ended up leaving a message for her emegency cont act Marilou to have pt call our office. I put orders in for labs/rad, precert fo r remicade orders awaiting Danny signititure. documented in this encounter Plan of Treatment Order Schedule Name Type Priority Associated Diagnoses Expected: 02/26/2012, Expires: 02/25/2013 CHEST, 2 VIEWS Imaging Routine Crohn's Ordered: 02/26/2012 POC TB SKIN TEST Point of Care Routine Crohn's Testing documented as of this encounter Visit Diagnoses Diagnosis Crohn's Regional enteritis of unspecified site documented in this encounter
--- OUTSIDE RECORDS SUMMARY | 2019-04-12 23:11 | XMS REPORT | Encounter Summary ---
Author Author [facility] Organization [facility] Address Unknown Phone Unavailable Care Team Providers Care Retail Project Merchandiser Name Role Phone Barber Nguyen MD Unavailable Moncho Odonnell MD PCP Reason for Visit * Reason Comments Other Informational, patient on way to the hospital ER Encounter Details Care Team Description Date Type Department Moncho Odonnell MD [address] Ortho/Med Pavilion Lvl 2B [place], [place] [id number] Other (Informational, patient on way to the hospital ER) 03/07/2012 Telephone [facility] Physicians - Internal Medicine [address] [place] [address] [place] [address] Social History Date Tobacco Use Types Packs/Day [...] encounter Miscellaneous Notes * Telephone Encounter - Ty Calhoun - 03/07/2012 2:59 PM CDT I received a transferred call with no transfer message attached. It is a call fr jaswinder Mady Yoon who is headed to the [facility] ER in [place]. She st ates she is in a lot of pain and planned to come up here today to do her testing , but that her money didn't come in and she was unable to make it. She was upse t and said she was sorry she didn't get in to get her labs done after her endosc opy, but to please let Dr. Odonnell know she was on her way to the hospital. I tri ed to call her back to get more information, but there was no answer. I see fro lissette Figueroa's note that the patient states she was having trouble contacting our o ffice. The [facility]2 team is here with me today and we have handled everything that lowe s come our way. I do not know who/where this patient was calling? But thought yo u should know she is on her way to the hospital now. I have also tried to page. documented in this encounter Plan of Treatment Not on filedocumented as of this encounter Visit Diagnoses Not on filedocumented in this encounter
--- OUTSIDE RECORDS SUMMARY | 2019-04-12 23:11 | XMS REPORT | Encounter Summary ---
Author Author [facility] Organization [facility] Address Unknown Phone Unavailable Care Team Providers Care Incinerator Plant Laborer Name Role Phone Barber Nguyen MD Unavailable Moncho Odonnell MD PCP Reason for Referral * Referred By Contact Referred To Contact Status Reason Specialty Diagnoses / Procedures [facility] [address] [place] [address] Closed Procedures COLONOSCOPY Encounter Details Care Team Description Date Type Department Moncho Odonnell MD [address] Ortho/Med Pavilion Lvl 2B [place] [address] [phone] 03/07/2012 Orders Only [facility] Physicians - Internal Medicine [address] [place] [address] Social History Date Tobacco Use Types Packs/Day [...] Procedure Name Priority Date/Time Associated Diagnosis COLONOSCOPY Routine 02/24/2012 documented in this encounter Visit Diagnoses Not on filedocumented in this encounter
--- OUTSIDE RECORDS SUMMARY | 2019-04-12 23:11 | XMS REPORT | Encounter Summary ---
Author Author [facility] Organization [facility] Address Unknown Phone Unavailable Care Team Providers Care Ecmo Specialist Name Role Phone Barber Nguyen MD Unavailable Moncho Odonnell MD PCP Reason for Visit * Reason Comments Test Encounter Details Care Team Description Date Type Department Moncho Odnonell MD [address] Ortho/Med Pavilion Lvl [address] [place] [address] Test 03/30/2012 Telephone [facility] Physicians - Internal Medicine [address] MED OFF[address] [address] Social History Date Tobacco Use [...] * Telephone Encounter - Carolina Watts - 03/30/2012 2:00 PM CDT Pt called and l/m starting that she had not completed labs due to being admitted outside of . She feels that they did a majority of labs while she was an inp t. She also l/m stating that she is trying to contact [facility], but not leaving voi cemail's and that she does not want Dr. Odonnell to think she is delvoping "a bad rapport with him for not doing labs". I r/c to pt and l/m for her to fax labs c ompleted at outside hospital to Breanna @ [phone] and to follow up with her a bout any further testing. documented in this encounter Plan of Treatment Not on filedocumented as of this encounter Visit Diagnoses Not on filedocumented in this encounter
--- OUTSIDE RECORDS SUMMARY | 2019-04-12 23:11 | XMS REPORT | Encounter Summary ---
Author Author [facility] Organization [facility] Address Unknown Phone Unavailable Care Team Providers Care Insurance Sales Professional Name Role Phone Barber Nguyen MD Unavailable Self, Referral PCP Unavailable Encounter Details Care Team Description Date Type Department Moncho Odonnell MD [address] Ortho/Med Pavilion Lvl 2B [place], [place] [phone] Regional enteritis of unspecified site 05/02/2012 Hospital Infusion Therapy Clinic Encounter Main [facility] [address] [place], [place] [phone] Social History Date Tobacco Use Types Packs/Day [...] Dose Rate Site Medication Order MAR Action 05/03/2012 10:45 AM CDT 400 mg 145 mL/hr inFLIXimab (REMICADE) 400 mg in sodium Given chloride 0.9% (NS) IVPB 400 mg, Intravenous, 290 mL, Administer over 2 Hours, ONCE, 1 dose, Wed05/02/12 at 1015, Flush with 15-20ml NS after infusion. Nursing: Administer using Youneeq filter set [id number]., 05/03/2012 1:00 PM CDT SODIUM CHLORIDE 0.9 % IV SOLP (AcuDose Given pull) NOW, 1 dose, Wed05/02/12 at 1030, Pee Huang: cabinet override, Pee Huang: cabinet override, documented in this encounter
--- OUTSIDE RECORDS SUMMARY | 2019-04-12 23:11 | XMS REPORT | Encounter Summary ---
Author Author [facility] Organization [facility] Address Unknown Phone Unavailable Care Team Providers Care Personal Fitness Trainer Name Role Phone Barber Nguyen MD Unavailable Moncho Odonnell MD PCP Reason for Visit * Reason Comments Medication Question Encounter Details Care Team Description Date Type Department Moncho Odonnell MD [address] Ortho/Med Pavilion Lvl [address] [place] [address] [phone] Medication Question 02/25/2012 Telephone [facility] Physicians - Internal Medicine [address] [place], [place] [address] Social History Date Tobacco Use Types Packs/Day [...] encounter Miscellaneous Notes * Telephone Encounter - Waleska Douglas - 02/29/2012 3:48 PM CDT Per reading telephone encounter patient questions/concern being address by Mynor Damon. * Telephone Encounter - Waleska Douglas - 02/25/2012 5:24 PM CDT Patient called Re: Remicade infusion. Please advise. documented in this encounter Plan of Treatment Not on filedocumented as of this encounter Visit Diagnoses Not on filedocumented in this encounter
--- OUTSIDE RECORDS SUMMARY | 2019-04-12 23:11 | XMS REPORT | Encounter Summary ---
Author Author [facility] Organization [facility] Address Unknown Phone Unavailable Care Team Providers Care Manager Inpatient Name Role Phone Barber Nguyen MD Unavailable Moncho Odonnell MD PCP Reason for Referral * Referred By Contact Referred To Contact Status Reason Specialty Diagnoses / Procedures [facility] [address] [place] [address] Closed Diagnoses Crohn's P rocedures CBC AND DIFF Reason for Visit * Reason Comments Vomiting ER wednesday night low potassium and sodium Nausea Diarrhea watery mucus no blood Encounter Details Care Team Description Date Type Department Moncho Odonnell MD [address] Ortho/Med Pavilion Lvl 2B [place] [address] [phone] Crohn's (Primary Dx) 06/22/[address] [facility] Physicians - Internal Medicine [address] [place] [address] Social History Date Tobacco Use Types Packs/Day [...] Signs Reading Time Taken Comments Vital Sign 128/78 06/22/2012 8:09 AM CDT Blood Pressure 71 06/22/2012 8:09 AM CDT Pulse 36.7 C (98 F) 06/22/2012 8:09 AM CDT Temperature 18 06/22/2012 8:09 AM CDT Respiratory Rate - - Oxygen Saturation - - Inhaled Oxygen Concentration 89.5 kg (197 lb 6.4 oz) 06/22/2012 8:09 AM CDT Weight 162.6 cm (5' 4") 06/22/2012 8:09 AM CDT Height 33.88 06/22/2012 8:09 AM CDT Body Mass Index documented in this encounter Patient Instructions * Patient Instructions* Breanna Stephen LPN - 06/22/2012 9:[address] Odonnell has asked that you get weekly bloodwork done please make sure that th is get done. Please call in monthly with follow up on symptoms documented in this encounter Progress Notes * Moncho Odonnell MD - 06/22/2012 8:14 AM CDT Mady Yoon is a 32 y.o. female. Subjective: History of Present Illness Patient is here today as she has declined further infliximab infusions and wo uld like to consider alternative therapies. Review of Systems Constitutional: Positive for fever, diaphoresis, activity change and appetite ch veronica. HENT: Positive for congestion, sneezing and sinus pressure. Eyes: Positive for redness and itching. Respiratory: Positive for shortness of breath. Cardiovascular: Negative. Gastrointestinal: Positive for nausea, vomiting, abdominal pain and rectal pain. Genitourinary: Negative. Musculoskeletal: Positive for back pain. Neurological: Positive for light-headedness and headaches. Hematological: Bruises/bleeds easily. Psychiatric/Behavioral: Positive for sleep disturbance and agitation. Objective: cetirizine (ZYRTEC) 10 mg tablet Take 10 mg by mouth daily. INFLIXIMAB (REMICADE IV) Administer 1 Each through vein every 30 days. HYDROCODONE/ACETAMINOPHEN 5/500 mg tablet Take 2 Tabs by mouth Every 4 Hours as needed for Pain. PREDNISONE 20 mg tablet Take 40 mg by mouth Daily. Filed Vitals: 06/22/12 0809 BP: 128/78 Pulse: 71 Temp: 36.7 C (98 F) TempSrc: Oral Resp: 18 Height: 162.6 cm (64") Weight: 89.54 kg (197 lb 6.4 oz) Body mass index is 33.88 kg/(m^2). Physical Exam None today Assessment and Plan: 1)Crohns' disease: Josette, has been exceptionally difficult to manage due to history of noncomplia nce in the past and I have some reservations over initiating and immunomodulator given need for close laboratory monitoring. I explained risks of the medicati on versus benefit in detail. Will start 6-MP at 1mg/kg/day. [facility] I spent approximately 25 minutes with the patient in a [id number] manner today , over 50% of the time was spent counseling her regarding other medical options for induction and maintenance of remission in Crohn's. I am not convinced at th is point that the symptoms she had experienced were related to her infliximab in fusions. I had contacted the infusion center and they report the symptoms she w as complaining about predated the infusion per their records. I currently do not believe she would be a candidate for methotrexate. I will move forward with 6- MP at Mg/kg/day. I explained very clearly to the patient that she would need r egular blood work including weekly CBCs for the first eight weeks of therapy and then monthly thereafter. We spoke in detail about risks of side effects includ ing drug induced leukopenia, drug induced pancreatitis, lymphoma, skin cancer, a nd reports of increased risks for cervical dysplasia and the need for regular pa p and pelvic exams. She will need an annual influenza vaccination and every five year pneumonia vaccination. 2)F/U in clinic in one to two months documented in this encounter Plan of Treatment Order Schedule Name Type Priority Associated Diagnoses Once a week for 8 Occurrences starting 06/22/2012 until 06/22/2013, 1 completed CBC AND DIFF Lab Routine Crohn's documented as of this encounter Results * CBC AND DIFF (06/22/2012 9:41 AM [...] >60 ML/MIN/1.73 SQM [facility] RESULTS Comment: [facility] The eGFR is not validated for use in drug dosing adjustments.Continue to use estimated creatinine clearance per dosing reference text.Please contact the Clinical Pharmacist for questions. eGFR >60 >60 ML/MIN/1.73 SQM [facility] Comment: The eGFR is not validated for use in drug dosing adjustments.Continue to use estimated creatinine clearance per dosing reference text.Please contact the Clinical Pharmacist for questions. Specimen Blood - Blood Performing Organization Address City/State/Zipcode Phone Number [facility] RES[facility] documented in this encounter Visit Diagnoses Diagnosis Crohn's - Primary Regional enteritis of unspecified site documented in this encounter
--- OUTSIDE RECORDS SUMMARY | 2019-04-12 23:11 | XMS REPORT | Encounter Summary ---
Author Author [facility] Organization [facility] Address Unknown Phone Unavailable Care Team Providers Care Program Rep Name Role Phone Barber Nguyen MD Unavailable Syeda Odonnell MD PCP Encounter Details Care Team Description Date Type Department Syeda Odonnell MD [address] Ortho/Med Pavilion Lvl [address] [place] [address] [phone] Regional enteritis of unspecified site 02/24/2012 Hospital [facility] [address] [place] [address] Social History Date Tobacco Use Types Packs/Day [...] Comments Procedure Name Priority Date/Time Associated Diagnosis SURGICAL PATHOLOGY 02/24/2012 8:29 AM CDT documented in this encounter Results * SURGICAL PATHOLOGY (02/24/2012 8:29 AM CDT) PATHOLOGY [facility] LAB RESULTS REPORT HOSPITAL [email or web address] Nesha Chopra MD, PhD, Director Anatomic Pathology Department of Pathology and Laboratory Medicine [address] [place] [phone] Surgical Pathology Office:[phone] :[phone] SURGICAL PATHOLOGY REPORT NAME: MADY BLANDON SURG PATH #: [id number] MR #: [id number] ALT ID #: LOCATION: [facility] DATE OF PROCEDURE: 02/24/2012 AGE:31 SEX: F DATE RECEIVED: 02/25/2012 : 1980TIME RECEIVED:08:29 PHYSICIAN: SYEDA SEGURA DATE OF REPORT: 02/26/2012 COPY TO:DATE OF PRINTIN02/26/2012 Final Diagnosis: A.Small bowel mucosa, "ulceration terminal ileum", biopsy: Ulceration with fibrinopurulent exudate and focal crypt distortion. See comment. Negative for dysplasia. B.Colonic mucosa, "random colon", biopsy: No diagnostic abnormalities. Comment: The findings are consistent with Crohn's disease if supported clinically and endoscopically. Attestation: By this signature, I attest that I have personally formulated the final interpretation expressed in this report and that the above diagnosis is based upon my examination of the slides and/or other material indicated in this report. Electronically Signed Out [facility]/02/25/2012 Interpreted by: Swati BARRIENTOS, Attending Physician Brian eDnnis M.D. Resident Material Received: A: ulceration terminal ileum B: random colon biopsy History: 31-year-old female with a clinical history of ulceration terminal ileum. A.Rule out Crohn's. B.Rule out colitis. Gross Description: A.Received in formalin labeled "ulceration terminal ileum" is a 0.6 x 0.5 x 0.2 cm aggregate of banks-brown soft tissue fragments.The specimen is entirely submitted in cassette A1.(jkh) B.Received in formalin labeled "mild uredematous colon" is a 0.8 x 0.7 x 0.2 cm aggregate of banks-brown soft tissue fragments.The specimen is entirely submitted in cassette B1.(jkh) ksp/02/25/2012 If immunohistochemical stains and/or in situ hybridization are cited in this report, the performance characteristics were determined by the Department of Pathology and Laboratory Medicine of the [facility] ([employer]) in compliance with CLIA'88 regulations.Some of these tests rely on the use of "analyte specific reagents" and are subject to specific labeling requirements by the FDA. Known positive and negative control tissues demonstrate appropriate staining.This testing was developed by the Department of Pathology and Laboratory Medicine of the [facility].It has not been cleared or approved by the FDA.The FDA has determined that such clearance or approval is not necessary. Specimen Performing Organization Address City/State/Zipcode Phone Number [facility] RESULTS documented in this encounter Visit Diagnoses Not on filedocumented in this encounter
--- OUTSIDE RECORDS SUMMARY | 2019-04-12 23:11 | XMS REPORT | Encounter Summary ---
Author Author [facility] Organization [facility] Address Unknown Phone Unavailable Care Team Providers Care Substance Abuse Services Director Name Role Phone Barber Nguyen MD Unavailable Moncho Odonnell MD PCP Encounter Details Care Team Description Date Type Department Moncho Odonnell MD [address] Ortho/Med Pavilion Lvl [address] [place] [address] [phone] Encounter for long-term (current) use of other medications; Regional enteritis 03/04/2012 Orders Only [facility] Physicians - Internal Medicine [address] [place] [address] Social History Date Tobacco Use Types Packs/Day [...] Type Priority Associated Diagnoses ONE TIME for 6 Occurrences starting 03/04/2012 until 03/04/2013 C REACTIVE PROTEIN (CRP) Lab Routine Encounter for long-term (current) use of other medications Regional enteritis ONE TIME for 12 Occurrences starting 03/04/2012 until 03/04/2013 CBC AND DIFF Lab Routine Encounter for long-term (current) use of other medications Regional enteritis ONE TIME for 12 Occurrences starting 03/04/2012 until 03/04/2013 COMPREHENSIVE METABOLIC Lab Routine Encounter for long-term PANEL (current) use of other medications Regional enteritis documented as of this encounter Visit Diagnoses Diagnosis Encounter for long-term (current) use of other medications Regional enteritis (HCC) Regional enteritis of unspecified site documented in this encounter
--- OUTSIDE RECORDS SUMMARY | 2019-04-12 23:11 | XMS REPORT | Encounter Summary ---
Author Author [facility] Organization [facility] Address Unknown Phone Unavailable Care Team Providers Care Sliver Lap Tender Name Role Phone Barber Nguyen MD Unavailable Self, Referral PCP Unavailable Reason for Visit * Reason Comments Medical Question Encounter Details Care Team Description Date Type Department Moncho Odonnell MD [address] Ortho/Med Pavilion Lvl 2B [place], [place] [id number] Medical Question 05/16/2012 Telephone [facility] - [facility] Medicine [address] [place] [address] Social History Date Tobacco Use Types Packs/Day [...] Telephone Encounter - Moncho Odonnell MD - 05/27/2012 1:02 PM CDT I have contacted infusion center to review infusion record and to discuss premed ication regimen that might be helpful. The nurse there will review record and ge t back to me. * Telephone Encounter - Breanna Stephen LPN - 05/25/2012 10:53 AM CDT Infusion center [id number] * Telephone Encounter - Moncho Odonnell MD - 05/23/2012 11:32 AM CDT Please send me # for infusion center so we can premedicate before next infusion and slow down rate * Telephone Encounter - Breanna Stephen LPN - 05/19/2012 2:53 PM CDT She states it was May 02 and she is scheduled May 30 but she said she will lowe ve to reschedule that if she still get the infusion due to school * Telephone Encounter - Moncho Odonnell MD - 05/19/2012 12:25 PM CDT When was her last infusion? * Telephone Encounter - Breanna Stephen LPN - 05/17/2012 11:17 AM CDT Her last infusion was at [facility] per Mady, she hasn't gone to [facility] yet for any infusions * Telephone Encounter - Moncho Odonnell MD - 05/17/2012 10:17 AM CDT Please give me the phone number of the infusion center where she is getting infu sed locally. * Telephone Encounter - Breanna Stephen LPN - 05/16/2012 2:56 PM CDT Patient calling stating has very sick since Remicaid infusion, states has never felt like this before . Has had to leave class with nausea, diarrhea. Patient un sure if wants to continue infusions. She is being seen at primary doctor today t o be seen with current symptoms of fatigue stomachache nausea vomiting. Will lucretia l me back with a progress update. She would like your opinion about discontinuin g Remicaid and alternatives. 1600: Just heard back from patient states that primary doctor thinks she is havi ng a adverse reaction to Remicaid. Put her on prednisone, zyrtec and zofran, and is to follow up with us in 5days if no improvement. Please advise documented in this encounter Plan of Treatment Not on filedocumented as of this encounter Visit Diagnoses Not on filedocumented in this encounter
--- OUTSIDE RECORDS SUMMARY | 2019-04-12 23:11 | XMS REPORT | Encounter Summary ---
Author Author [facility] Organization [facility] Address Unknown Phone Unavailable Care Team Providers Care Obgyn Hospitalist Physician Name Role Phone Barber Nguyen MD Unavailable Self, Referral PCP Unavailable Encounter Details Care Team Description Date Type Department Moncho Odonnell MD [address] Ortho/Med Pavilion Lvl 2B [place] [address] 05/27/2012 Documentation [facility] [address] [place], [place] [phone] Social History Date Tobacco Use Types Packs/Day [...] Progress Notes * Moncho Odonnell MD - 05/27/2012 1:21 PM CDT I spoke to Randi in infusion center. She reports nursing documentation at t madelyn of infusion around May 02 showed patient had some n/v, and diarrhea around April 27 but that it was self limited and resolved around time of infusion. For now I have decided no further premedication at this point and we will see how she does at her next infusion. documented in this encounter Plan of Treatment Not on filedocumented as of this encounter Visit Diagnoses Not on filedocumented in this encounter
--- OUTSIDE RECORDS SUMMARY | 2019-04-12 23:11 | XMS REPORT | Encounter Summary ---
Author Author [facility] Organization [facility] Address Unknown Phone Unavailable Care Team Providers Care Desktop Engineer Name Role Phone Barber Nguyen MD Unavailable Self, Referral PCP Unavailable Encounter Details Care Team Description Date Type Department Moncho Odonnell MD [address] Ortho/Med Pavilion Lvl [address] [place] [address] 06/01/2012 Hospital Infusion Therapy Clinic Encounter Main [facility] [address] [place], [place] [phone] Social History Date Tobacco Use Types Packs/Day [...]
--- OUTSIDE RECORDS SUMMARY | 2019-04-12 23:12 | XMS REPORT | Encounter Summary ---
Author Author [facility] Organization [facility] Address Unknown Phone Unavailable Care Team Providers Care Tetryl Dissolver Operator Name Role Phone Barber Nguyen MD Unavailable Self, Referral PCP Unavailable Encounter Details Care Team Description Date Type Department Ascencion Tobar MD RETIRED 07/24/2018 12/30/2010 Hospital [facility] [address] [id number] Social History Date Tobacco Use Types Packs/Day [...] as of this encounter Progress Notes * Ascencion Tobar MD - 01/05/2011 10:17 AM CDT NEUROSURGERY CLINIC NOTE SUBJECTIVE: Ms. Yoon was not seen today. She did not bring her films. Her a ppointment will be rescheduled. Ascencion Tobar MD, FACS Professor Department of Neurosurgery PA/Mark [id number] cc: documented in this encounter Plan of Treatment Not on filedocumented as of this encounter Visit Diagnoses Not on filedocumented in this encounter
--- OUTSIDE RECORDS SUMMARY | 2019-04-12 23:12 | XMS REPORT | Encounter Summary ---
Author Author [facility] Organization [facility] Address Unknown Phone Unavailable Care Team Providers Care After School Tutor Name Role Phone Naveed Lockhart PCP Encounter Details Care Team Description Date Type Department Rick Orozco MD [address] [facility] Ortho/Med Pavilion Lvl 2B [place] [address] 12/19/2008 Orders Only [facility] [address] [place] [address] Social History Date Tobacco Use Types Packs/Day [...] Comments Procedure Name Priority Date/Time Associated Diagnosis PATHOLOGY REPORT 12/19/2008 4:36 PM ONLINE RETAILER documented in this encounter Results * PATHOLOGY REPORT (12/19/2008 4:36 PM ONLINE RETAILER) PATHOLOGY [facility] LAB RESULTS REPORT Department of Pathology and Laboratory Medicine Surgical Pathology Nesha Chopra MD, PhD, Director [address] [place] [address], [place] [address] Surgical Pathology Office:[phone] :[phone] SURGICAL PATHOLOGY REPORT NAME: MADY BLANDON SURG PATH #: [id number] MR #: [id number] ALT ID #: LOCATION: ENDOSC DATE OF PROCEDURE: 12/19/2008 AGE:28 SEX: F DATE RECEIVED: 12/19/2008 : 1980TIME RECEIVED:16:36 PHYSICIAN: RICK OROZCO M.D. DATE OF REPORT: 12/20/2008 COPY TO:DATE OF PRINTIN12/20/2008 Final Diagnosis: A.Small intestinal mucosa, anastamosis, biopsy: Active inflammatory bowel disease with marked acute and chronic inflammation, cryptitis, crypt abscess, glandular regeneration and acute inflammatory exudate. There is no evidence of granulomas, dysplasia or malignancy. B.Squamous and gastric mucosa, esophagus, biopsy: Moderate chronic inflammation. There is no evidence of Oh's esophagus, dysplasia or malignancy. Electronically Signed Out owt/12/20/2008 [facility]. Ruiz Reed M.D. Material Received: A: anastamosis biopsy B: esophagus biopsy History: 28 year old female with history of Crohn's.Rule out Crohn's and also rule out Oh's. Gross Description: A.Received in formalin labeled "anastomosis bx" is a 0.5 x 0.4 x 0.2 cm aggregate of banks-brown soft tissue fragments.The specimen is entirely submitted in cassette A1. B.Received in formalin labeled "esophagus bx" is a 0.5 x 0.3 x 0.3 cm aggregate of banks-brown soft tissue fragments.The specimen is entirely submitted in cassette B1.(rcg) lkr/12/20/2008 Ruiz Reed M.D. If immunohistochemical stains are cited in this report, the performance characteristics were determined by the Department of Pathology and Laboratory Medicine of the [facility] ([employer]) in compliance with CLIA' 88 regulations.Some of these tests rely on the use of "analyte specific reagents" and are subject to specific labeling requirements by the FDA.Known positive and negative control tissues demonstrate appropriate staining.This testing was developed by the Department of Pathology and Laboratory Medicine of the [facility].It has not been cleared or approved by the FDA.The FDA has determined that such clearance or approval is not necessary. Attestation: By this signature, I attest that I have personally formulated the final interpretation expressed in this report and that the above diagnosis is based upon my examination of the slides and/or other material indicated in this report. Specimen Performing Organization Address City/State/Zipcode Phone Number [facility] documented in this encounter Visit Diagnoses Not on filedocumented in this encounter
--- OUTSIDE RECORDS SUMMARY | 2019-04-12 23:12 | XMS REPORT | Encounter Summary ---
Author Author [facility] Organization [facility] Address Unknown Phone Unavailable Care Team Providers Care Stave And Bolt Equalizer Name Role Phone Barber Nguyen MD Unavailable Moncho Odonnell MD PCP Encounter Details Care Team Description Date Type Department Moncho Odonnell MD [address] Ortho/Med Pavilion Lvl [address]B [place] [address] [phone] Regional enteritis of unspecified site 01/27/2012 Hospital [facility] [address] [place] [address] Social History Date Tobacco Use Types Packs/Day [...] Date/Time Associated Diagnosis C DIFFICILE BY PCR 01/27/2012 Encounter for long-term 11:30 AM CDT (current) use of other medications CULTURE-FECES 01/27/2012 Encounter for long-term W/SENSITIVITY 11:30 AM CDT (current) use of other medications [facility] TEST 01/27/2012 Regional enteritis of 11:00 AM CDT unspecified site (HCC) Encounter for long-term (current) use of other medications [facility] 01/27/2012 Regional enteritis of 11:00 AM CDT unspecified site (HCC) Encounter for long-term (current) use of other medications HEPATITIS C AB 01/27/2012 Regional enteritis of 11:00 AM CDT unspecified site (HCC) Encounter for long-term (current) use of other medications HEPATITIS B SURFACE AG 01/27/2012 Regional enteritis of 11:00 AM CDT unspecified site (HCC) Encounter for long-term (current) use of other medications HEPATITIS B SURFACE AB 01/27/2012 Regional enteritis of 11:00 AM CDT unspecified site (HCC) Encounter for long-term (current) use of other medications SED RATE 01/27/2012 Regional enteritis of 11:00 AM CDT unspecified site (HCC) Encounter for long-term (current) use of other medications CBC AND DIFF 01/27/2012 Regional enteritis of 11:00 AM CDT unspecified site (HCC) Encounter for long-term (current) use of other medications C REACTIVE PROTEIN (CRP) 01/27/2012 Regional enteritis of 11:00 AM CDT unspecified site (HCC) Encounter for long-term (current) use of other medications THYROID STIMULATING 01/27/2012 Regional enteritis of HORMONE-TSH 11:00 AM CDT unspecified site (HCC) Encounter for long-term (current) use of other medications COMPREHENSIVE METABOLIC 01/27/2012 Regional enteritis of PANEL 11:00 AM CDT unspecified site (HCC) Encounter for long-term (current) use of other medications documented in this encounter Results * CULTURE-FECES W/SENSITIVITY (01/27/2012 11:30 AM CDT) Battery Name STOOL CULTURE [facility] Specimen FECES [facility] Description Special NONE [facility] RES[facility] Requests Culture NO SALMONELLA, SHIGELLA, [facility] RESULTS CAMPYLOBACTER, AEROMONAS, OR PLESIOMONAS SHIGA TOXIN NOT DETECTED Report Status FINAL [facility] RESULTS 01/30/2012 Specimen Feces Performing Organization Address City/[facility] Phone Number [facility] * C DIFFICILE BY PCR (01/27/2012 11:30 AM CDT) Battery Name C DIFFICILE PCR [facility] Specimen FECES [facility] RES[facility] Description Special NONE [facility] RES[facility] Requests C. difficile NEGATIVE-wait 7 days to repeat [facility] Toxin B PCR test Report Status FINAL [facility]ULTS 01/27/2012 Specimen Feces Performing Organization Address City/[facility] Phone Number [facility] RESULTS * [facility] TEST (01/27/2012 11:00 AM CDT) Randolph FFTNZ, PROMETHEUS TPMT Enzyme, [facility] RESULTS Miscellaneous EDTA WHOLE BLOOD SUBMITTED Test Info Randolph SEE COMMENTS 02/03/2012 08:24 [facility] RESULTS Miscellaneous AM Result HI Expected Test Resu lt LOUnitsValues ------ PROMETHEUS TPMT Enzyme Test Result Normal Activity Value 28.9 EU PROMSilent PowerEUS TPMT Enzyme Activity Ranges: >21.0 EU - Normal Activity 6.0 - 21.0 EU - Intermediate Activity < 6.0 EU - Low Activity The highest TPMT enzyme activity level observed in the [employer] validation studies of normal individuals was between 60-70 EU. This test was developed and its performance characteristics determined by [employer].It has not been cleared or approved by the U.S. Food and Drug Administration. Test Performed by: [employer] [facility] [address] [facility], [id number] [facility], [address] [place] [address] Specimen Performing Organization Address City/[facility] Phone Number [facility] RES[facility] * MISC REFERENCE TEST (01/27/2012 11:00 AM CDT) Pathologist [facility] Test PROMETHEUS TPMT Enzyme [facility] RESULTS Reference Lab PERFORMED AT [facility] RESULTS LABORATORIES Results Ref Lab SEE [facility] TEST [facility] Specimen Mail EDTA WHOLE BLOOD [facility] Specimen Performing Organization Address City/[facility] Phone Number [facility] RESULTS * SED RATE (01/27/2012 11:00 AM CDT) [facility] Sed Rate -ESR 9 0 - 20 MM/HR [facility] Specimen Performing Organization Address [facility] Phone Number [facility] RESULTS * THYROID STIMULATING HORMONE-TSH (01/27/2012 11:00 AM CDT) [facility] TSH 1.290 0.35 - 5.00 MCU/ML [facility] Specimen Performing Organization Address [facility] Phone Number [facility] RESULTS * CBC AND DIFF (01/27/2012 11:00 AM CDT) [facility] White Blood 7.2 4.5 - 11.0 K/UL [facility] Cells RBC 4.30 4.0 - 5.0 M/UL [facility] Hemoglobin 14.1 12.0 - 15.0 GM/DL [facility] Hematocrit 41.6 36 - 45 % [facility] MCV 97.0 80 - 100 FL [facility] RES[facility] MCH 33.0 26 - 34 PG [facility] RESULTS MCHC 34.0 32.0 - 36.0 G/DL [facility] RDW 14.0 11 - 15 % [facility] Platelet Count 312 150 - 400 K/UL [facility] MPV 8.0 7 - 11 FL [facility] Neutrophils 50 41 - 77 % [facility] Lymphocytes 36 24 - 44 % [facility] Monocytes 7 4 - 12 % [facility] Eosinophils 6 (H) 0 - 5 % [facility] Basophils 1 0 - 2 % [facility] RES[facility] Absolute 3.60 1.8 - 7.0 K/UL [facility] Neutrophil Count Absolute Lymph 2.60 1.0 - 4.8 K/UL [facility] RES[facility] Count Absolute 0.53 0 - 0.80 K/UL [facility] RESULTS Monocyte Count Absolute 0.39 0 - 0.45 K/UL [facility] RESULTS Eosinophil Count Absolute 0.06 0 - 0.20 K/UL [facility] RESULTS Basophil Count Specimen Performing Organization Address City/[facility] Phone Number [facility] RES[facility] * HEPATITIS C AB (01/27/2012 11:00 AM CDT) Anti HCV NEG [facility] Specimen Performing Organization Address [facility] Phone Number [facility] RESULTS * HEPATITIS B SURFACE AB (01/27/2012 11:00 AM CDT) Anti HBs 420.8 mIU/ml [facility] RESULTS Comment: Hepatitis B Surface Antibody Reference Ranges >12.0 Positive 8.0-12.0Equivocal <8.0Negative Specimen Performing Organization Address [facility] Phone Number [facility] RESULTS * HEPATITIS B SURFACE AG (01/27/2012 11:00 AM CDT) HBsAg NEG [facility] RESULTS Specimen Performing Organization Address [facility] Phone Number [facility] RESULTS * C REACTIVE PROTEIN (CRP) (01/27/2012 11:00 AM CDT) C-Reactive 0.89 <1.0 MG/DL [facility] Protein Specimen Performing Organization Address [facility] Phone Number [facility] RESULTS * COMPREHENSIVE METABOLIC PANEL (01/27/2012 11:00 AM CDT) Sodium 140 137 - 147 MMOL/L [facility] Potassium 3.4 (L) 3.5 - 5.1 MMOL/L [facility] Chloride 104 98 - 110 MMOL/L [facility] Glucose 103 (H) 70 - 100 MG/DL [facility] RES[facility] Blood Urea 3 (L) 8 - 20 MG/DL [facility] Nitrogen Creatinine 0.80 0.4 - 1.00 MG/DL [facility] RESULTS Calcium 9.2 9.0 - 11.0 MG/DL [facility] RES[facility] Total Protein 6.5 6.0 - 8.0 G/DL [facility] RES[facility] Total Bilirubin 0.5 0.3 - 1.2 MG/DL [facility] RES[facility] Albumin 3.8 3.5 - 5.0 G/DL [facility] Alk Phosphatase 71 25 - 110 U/L [facility] AST (SGOT) 17 7 - 40 U/L [facility] CO2 26 21 - 30 MMOL/L [facility] ALT (SGPT) 17 7 - 56 U/L [facility] Anion Gap 10 8 - 12 [facility] RES[facility] eGFR Non >60 >60 ML/MIN/1.73 SQM [facility] Comment: [facility] The eGFR is not validated for use in drug dosing adjustments.Continue to use estimated creatinine clearance per dosing reference text.Please contact the Clinical Pharmacist for questions. eGFR >60 >60 ML/MIN/1.73 SQM [facility] RESULTS [facility] Comment: The eGFR is not validated for use in drug dosing adjustments.Continue to use estimated creatinine clearance per dosing reference text.Please contact the Clinical Pharmacist for questions. Specimen Performing Organization Address City/State/Zipcode Phone Number [facility] RESULTS documented in this encounter Visit Diagnoses Diagnosis Regional enteritis of unspecified site Encounter for long-term (current) use of other medications documented in this encounter
--- OUTSIDE RECORDS SUMMARY | 2019-04-12 23:12 | XMS REPORT | Encounter Summary ---
Author Author [facility] Organization [facility] Address Unknown Phone Unavailable Care Team Providers Care Roll Repairer Name Role Phone KarunaNaveed rodríguez PCP Encounter Details Care Team Description Date Type Department Barber Nguyen MD [address] Ortho/Med Pavilion Lvl 2B [place], [place] [phone] 12/19/2008 Hospital [facility] Encounter [address] [place], [place] [phone] Social History Date Tobacco Use Types Packs/Day [...] Signs Reading Time Taken Comments Vital Sign 135/82 12/19/2008 3:50 PM WHITE SUGAR SYRUP OPERATOR Blood Pressure 69 12/19/2008 3:50 PM WHITE SUGAR SYRUP OPERATOR Pulse 36.6 C (97.9 F) 12/19/2008 1:28 PM WHITE SUGAR SYRUP OPERATOR Temperature - - Respiratory Rate 98% 12/19/2008 3:50 PM WHITE SUGAR SYRUP OPERATOR Oxygen Saturation - - Inhaled Oxygen Concentration 72.6 kg (160 lb) 12/19/2008 1:28 PM WHITE SUGAR SYRUP OPERATOR Weight 157.5 cm (5' 2") 12/19/2008 1:28 PM WHITE SUGAR SYRUP OPERATOR Height 29.26 12/19/2008 1:28 PM WHITE SUGAR SYRUP OPERATOR Body Mass Index documented in this encounter [...] Dose Rate Site Medication Order MAR Action 12/19/2008 3:25 PM WHITE SUGAR SYRUP OPERATOR 25 mcg FENTANYL CITRATE (PF) 50 MCG/ML IJ SOLN Given (AcuDose pull) NOW, 1 dose, Wed12/19/08 at 1515, Makayla Rhodes: Cabinet Override, Makayla Rhodes: Cabinet Override, 25 mcg Given 12/19/2008 3:18 PM WHITE SUGAR SYRUP OPERATOR 50 mcg Given 12/19/2008 3:08 PM WHITE SUGAR SYRUP OPERATOR 12/19/2008 1:45 PM WHITE SUGAR SYRUP OPERATOR SODIUM CHLORIDE 0.9 % IV SOLP (AcuDose Given pull) NOW, 1 dose, Wed12/19/08 at 1345, Joseph De La Torre: Cabinet Override, Josehp De La Torre: Cabinet Override, documented in this encounter
--- OUTSIDE RECORDS SUMMARY | 2019-04-12 23:12 | XMS REPORT ---
Author Author Migration, Doctor Organization [facility] Address Unknown Phone Unavailable Care Team Providers Care Historical Society Director Name Role Phone Migration, Doctor Unavailable Unavailable PROBLEMS Type Condition ICD9-CM Code KGU96-QX Code Onset Dates Condition Status SNOMED Code Problem Injury, other and unspecified, unspecified site 959.9 Active 432854050 Problem Injury, other and unspecified, knee, leg, ankle, and foot 959.7 Active 662595404 Problem Other drug allergy 995.27 Active 139873408 Problem Pain in joint, ankle and foot 719.47 Active 615661022 Problem Acute pain due to trauma 338.11 Active 709462884 Problem Diarrhea 787.91 Active 32451085 Problem Nausea alone 787.02 Active 567794011 Problem Shortness of breath 786.05 Active 392522419 Problem Other general symptoms 780.99 Active 255954712 ALLERGIES No Information ENCOUNTERS Encounter Location Date Diagnosis [facility] [address] [id number] 14 Oct, 2015 Dental examination Z01.20 [facility] [address] [address] Jan, [facility] [id number] [place] [address] Jan, [facility] [id number] [place] [address] February, [facility] [address] [address] February, [facility] [address] [address] May, [facility] [address] [address] May, [facility] [address] [place] [address] Apr, [facility] [address] [id number] [place] [address] Mar, [facility] [place] [facility] [address] [id number] [place] [address] February, [facility] [address] [id number] [place] [address] February, [facility] [place] [facility] [address] [id number] [place] [address] February, [facility] [place] [facility] [address] [id number] [place] [address] 26 Jan, 2012 [facility] [place] [facility] [address] [id number] [place] [address] 13 Jan, 2012 [facility] [address] [id number] [place] [address] Jan, [facility] [place] [facility] [address] [id number] [place] [address] Jan, [facility] [place] [facility] [address] [id number] [place] [address] 02 Jan, 2012 [facility] [place] [facility] [address] [id number] [place] [address] Dec, [facility] [place] [facility] [address] [id number] [place] [address] Dec, [facility] [place] [facility] [address] [id number] [place] [address] 05 Dec, 2011 [facility] [place] [facility] [address] [id number] [place] [address] Dec, [facility] [place] [facility] [address] [id number] [place] [address] Nov, [facility] [place] [facility] [address] [id number] [place] [address] Nov, [facility] [place] [facility] [address] [id number] [place] [address] Nov, [facility] [place] [facility] [address] [id number] [place] [address] Nov, [facility] [place] [facility] [address] [id number] [place] [address] Nov, [facility] [place] [facility] [address] [id number] [place] [address] Nov, [facility] [place] [facility] [address] [id number] [place] [address] 14 Nov, 2011 [facility] [place] [facility] [address] [id number] [place] [address] 10 Nov, 2011 [facility] [place] [facility] [address] [id number] [place] [address] 08 Nov, 2011 [facility] [place] [facility] [address] [id number] [place] [address] Nov, [facility] [address] [facility] [id number] [id number] Nov, [facility] [address] [id number] [place] [address] Nov, [facility] [place] [facility] [address] [id number] [place] [address] Oct, [facility] [place] [facility] [address] [id number] [place] [address] Oct, [facility] [place] [facility] [address] [id number] [place] [address] Oct, [facility] [place] [facility] [address] [id number] [place] [address] Oct, [facility] [place] [facility] [address] [id number] [place] [address] Sep, [facility] [place] [facility] [address] [id number] [place] [address] 14 Sep, 2011 [facility] [place] [facility] [address] [id number] [place] [address] 13 Sep, 2011 [facility] [place] [facility] [address] [id number] [place] [address] Sep, [facility] [place] [facility] [address] [id number] [place] [address] Aug, [facility] [place] [facility] [address] [id number] [place] [address] Aug, [facility] [place] [facility] [address] [id number] [place] [address] Aug, [facility] [place] [facility] [address] [id number] [place] [address] Aug, [facility] [place] [facility] [address] [id number] [place] [address] Jul, [facility] [place] [facility] [address] [id number] [place] [address] Jul, [facility] [place] [facility] [address] [id number] [place] [address] 18 Jul, 2011 [facility] [place] [facility] [address] [facility] [id number] [place] [address] Oct, [facility] [place] [facility] [address] [id number] [place] [address] Jul, [facility] [place] [facility] [address] [id number] [place] [address] 19 Jul, 2010 [facility] [place] [facility] [address] [id number] [place] [address] 19 Jul, 2010 [facility] [place] [facility] [address] [id number] [place] [address] 19 Jul, 2010 [facility] [place] [facility] [address] [facility] [id number] [place] [address] 15 Jul, 2010 [facility] [place] [facility] [address] [id number] [place] [address] Dec, [facility] [id number] [address] Nov, [facility] [id number] [address] Sep, [facility] [id number] [address] Aug, [facility] [id number] [address] Jul, [facility] [address] [id number] [address] 16 Jun, 2009 IMMUNIZATIONS No Known Immunizations SOCIAL HISTORY Never Assessed REASON FOR VISIT EMR-[facility] PLAN OF CARE VITAL SIGNS MEDICATIONS No Known Medications RESULTS No Results PROCEDURES No Known procedures INSTRUCTIONS MEDICATIONS ADMINISTERED No Known Medications MEDICAL (GENERAL) HISTORY Type Description Date Medical History asthma Medical History crohns Medical History arthritis Medical History back trouble Hospitalization History crohns disease
--- OUTSIDE RECORDS SUMMARY | 2019-04-12 23:12 | XMS REPORT | Encounter Summary ---
Author Author [facility] Organization [facility] Address Unknown Phone Unavailable Care Team Providers Care Aquatics Specialist Name Role Phone Naveed Lockhart PCP Encounter Details Care Team Description Date Type Department Barber Nguyen MD [address] [facility] Lvl 2B [place], [place] [id number] 12/19/2008 Endo Rslt Enc [facility] [address] [place], [place] [id number] Social History Date Tobacco Use Types Packs/Day [...] Procedure Name Priority Date/Time Associated Diagnosis EGD WITH ANESTHESIA 12/19/2008 REPORT 1:45 PM [employer] CONSULTANT documented in this encounter Results * EGD WITH ANESTHESIA REPORT (12/19/2008 1:45 PM [employer] CONSULTANT) Endoscopy Indications: Abdominal pain [facility] OTHER Report (789.00). Nausea (787.02). RESULTS Vomiting (787.01). Consent: The benefits, risks, and alternatives to the procedure were discussed and informed consent was obtained from the patient. Medications: General anesthesia. Procedure:The endoscope was passed with ease through the mouth under direct visualization and advanced to the 3rd portion of the duodenum. The scope was withdrawn and the mucosa was carefully examined. The views were excellent. The patient's toleration of the procedure was excellent.I, the attending physician, was present for the entire viewing portion of the procedure. Findings:Irregular Z-line at 38cm from incisors, suspicious for short segment Oh's esophagus, biopsied. The stomach appeared to be normal. The duodenum appeared to be normal. Unplanned Events:There were no unplanned events. Summary: Irregular Z-line at 38cm from incisors, suspicious for short segment Oh's esophagus, biopsied. Normal stomach. Normal duodenum. Recommendations: Follow-up on the results of the biopsy specimens. Procedure Codes: 79629: EGD with biopsy Performed By:The procedure was performed by Barber Nguyen M.D. . Specimen Performing Organization Address City/State/[place] Phone Number [facility] OTHER RESULTS documented in this encounter Visit Diagnoses Not on filedocumented in this encounter
--- OUTSIDE RECORDS SUMMARY | 2019-04-12 23:12 | XMS REPORT | Encounter Summary ---
Author Author [facility] Organization [facility] Address Unknown Phone Unavailable Care Team Providers Care Office Messenger Helper Name Role Phone Unverified, Unverified Md PCP Unavailable Encounter Details Care Team Description Date Type Department Barber Nguyen MD [address] Orth[facility] Pav[facility] Lvl 2B [place] [address] [phone] 12/17/2008 [facility] [address] [place] [address] Social History Date Tobacco Use Types Packs/Day Years Used Never Assessed Sex Assigned at Date Recorded Not on file Industry Job Start Date Occupation Not on file Not on file Not on file Travel End Travel History Travel Start No recent travel history available. documented as of this encounter Plan of Treatment Not on filedocumented as of this encounter Procedures Comments Procedure Name Priority Date/Time Associated Diagnosis FREE T4-FREE THYROXINE 12/17/2008 4:10 PM SAW OFFBEARER TSH WITH FREE T4 REFLEX 12/17/2008 Nausea with Vomiting 4:10 PM [employer]ARER Abnormal Loss of Weight Diarrhea THIOPURINE 12/17/2008 Nausea with Vomiting METHYLTRANSFERASE RBC 4:10 PM [employer]ARER Abnormal Loss of Weight Diarrhea SED RATE 12/17/2008 Nausea with Vomiting 4:10 PM [employer] Abnormal Loss of Weight Diarrhea CBC AND DIFF 12/17/2008 Nausea with Vomiting 4:10 PM [employer] OFFBEARER Abnormal Loss of Weight Diarrhea C REACTIVE PROTEIN (CRP) 12/17/2008 Nausea with Vomiting 4:10 PM SAW OFFBEARER Abnormal Loss of Weight Diarrhea COMPREHENSIVE METABOLIC 12/17/2008 Nausea with Vomiting PANEL 4:10 PM [employer] OFFBEARER Abnormal Loss of Weight Diarrhea documented in this encounter Results * FREE T4-FREE THYROXINE (12/17/2008 4:10 PM SAW OFFBEARER) T4-Free 0.8 0.6 - 1.6 NG/DL [facility] RESULTS Specimen Performing Organization Address [facility] Phone Number [facility] RESULTS * TSH WITH FREE T4 REFLEX (12/17/2008 4:10 PM SAW OFFBEARER) TSH Thyroid 0.207 (L) 0.35 - 5.00 MCU/ML [facility] RESULTS Screen Specimen Performing Organization Address [facility] Phone Number [facility] RESULTS * THIOPURINE METHYLTRANSFERASE RBC (12/17/2008 4:10 PM SAW OFFBEARER) Thiopurine 25.6 u/mL RBC [facility] RESULTS S-Methyl (TPMT) Comment: The above results can be interpreted as Normal for Thiopurine Methyltransferase. Please contact the [employer] software security consultant or genetic counselor non acoustic operator ( ) if you have any questions. -- REFERENCE VALUE -- >17.0(Normal range) 15.4-17.0(Probable low normal) 11.9-15.3(Possible carrier) 6.0-11.8 (Carrier range) 0.0-5.9(Homozygous deficient range) Please note change in reporting effective 10/30/2008. [facility] Specimen Performing Organization Address [facility] Phone Number [facility] RESULTS * CBC AND DIFF (12/17/2008 4:10 PM SAW OFFBEARER) White Blood 9.8 4.5 - 11.0 K/UL [facility] RESULTS Cells RBC 4.30 4.0 - 5.0 M/UL [facility] RESULTS Hemoglobin 13.8 12.0 - 15.0 GM/DL [facility] RESULTS Hematocrit 41.2 36 - 45 % [facility] RES[facility] MCV 97.0 80 - 100 FL [facility] RESULTS MCH 32.0 26 - 34 PG [facility] RESULTS MCHC 33.0 32.0 - 36.0 G/DL [facility] RESULTS RDW 14.3 11 - 15 % [facility] RES[facility] Platelet Count 346 150 - 400 K/UL [facility] RES[facility] MPV 7.0 7 - 11 FL [facility] RESULTS Neutrophils 85 (H) 41 - 77 % [facility] RESULTS Lymphocytes 14 (L) 24 - 44 % [facility] RESULTS Monocytes 1 (L) 4 - 12 % [facility] RESULTS Eosinophils 0 0 - 5 % [facility] RES[facility] Basophils 0 0 - 2 % [facility] RES[facility] Absolute 8.35 (H) 1.8 - 7.0 K/UL [facility] RESULTS Neutrophil Count Absolute Lymph 1.32 1.0 - 4.8 K/UL [facility] RESULTS Count Absolute 0.07 0 - 0.80 K/UL [facility] RESULTS Monocyte Count Absolute 0.00 0 - 0.45 K/UL [facility] RESULTS Eosinophil Count Absolute 0.02 0 - 0.20 K/UL [facility] RESULTS Basophil Count Specimen Performing Organization Address [facility] Phone Number [facility] RESULTS * SED RATE (12/17/2008 4:10 PM SAW OFFBEARER) Pathologist [facility] Sed Rate -ESR 6 0 - 20 MM/HR [facility] RESULTS Specimen Performing Organization Address [facility] Phone Number [facility] RESULTS * C REACTIVE PROTEIN (CRP) (12/17/2008 4:10 PM SAW OFFBEARER) Pathologist [facility] C-Reactive 0.04 <1.0 MG/DL [facility] RESULTS Protein Specimen Performing Organization Address [facility] Phone Number [facility] RESULTS * COMPREHENSIVE METABOLIC PANEL (12/17/2008 4:10 PM SAW OFFBEARER) Pathologist [facility] Sodium 141 137 - 147 MMOL/L [facility] RESULTS Potassium 3.6 3.5 - 5.1 MMOL/L [facility] RESULTS Chloride 105 98 - 110 MMOL/L [facility] RESULTS Glucose 112 (H) 70 - 110 MG/DL [facility] RESULTS Blood Urea 5 (L) 8 - 20 MG/DL [facility] RESULTS Nitrogen Creatinine 0.69 0.4 - 1.00 MG/DL [facility] RESULTS Calcium 9.4 9.0 - 11.0 MG/DL [facility] RESULTS Total Protein 6.6 6.0 - 8.0 G/DL [facility] RESULTS Total Bilirubin 0.5 0.3 - 1.2 MG/DL [facility] RESULTS Albumin 3.8 3.5 - 5.0 G/DL [facility] RESULTS Alk Phosphatase 72 25 - 110 U/L [facility] RES[facility] AST (SGOT) 21 7 - 40 U/L [facility] RES[facility] CO2 27 21 - 30 MMOL/L [facility] RESULTS ALT (SGPT) 20 7 - 56 U/L [facility] RESULTS Anion Gap 9 8 - 12 [facility] RESULTS eGFR Non >60 >60 ML/MIN/1.73 SQM [facility] RESULTS Comment: Citizen Of [place] The eGFR is not validated for use in drug dosing adjustments.Continue to use estimated creatinine clearance per dosing reference text.Please contact the Clinical Pharmacist for questions. eGFR >60 >60 ML/MIN/1.73 SQM [facility] RESULTS Citizen Of [place] Comment: The eGFR is not validated for use in drug dosing adjustments.Continue to use estimated creatinine clearance per dosing reference text.Please contact the Clinical Pharmacist for questions. Specimen Performing Organization Address City/State/Zipcode Phone Number [facility] RESULTS documented in this encounter Visit Diagnoses Diagnosis Nausea with vomiting Abnormal loss of weight Loss of weight Diarrhea documented in this encounter
--- OUTSIDE RECORDS SUMMARY | 2019-04-12 23:12 | XMS REPORT | Encounter Summary ---
Author Author [facility] Organization [facility] Address Unknown Phone Unavailable Care Team Providers Care Exceptional Needs Teacher Name Role Phone Barber Nguyen MD Unavailable Self, Referral PCP Unavailable Encounter Details Care Team Description Date Type Department Ascencion Tobar MD RETIRED 07/24/2018 01/06/2011 Hospital [facility] [address] [address] Social History Date Tobacco Use Types Packs/Day [...] Progress Notes * Ascencion Tobar MD - 01/07/2011 11:50 AM CDT NEUROSURGERY HISTORY & PHYSICAL HISTORY OF PRESENT ILLNESS: This is a 31-year-old white female who complains of pain in her back and occasional numbness in her left great toe and pain down her left lower extremity. This has been going on for the past 3 months. She says it is worse with lifting. It is better with oral medications and being in a hot tub. She denies any bowel or bladder changes or any other paresthesias. She has had no recent adjunctive therapy. PAST MEDICAL HISTORY: Crohn's disease, asthma and diana in the past. PAST SURGICAL HISTORY: Cholecystectomy, hysterectomy x2, 2 small bowel resectio ns, tonsillectomy, appendectomy, nasal reconstruction, cyst removal, surgery for the diana as well as some issues with her right shoulder. ALLERGIES: Penicillin, naproxen and anti-inflammatories. CURRENT MEDICATIONS: Hydrocodone, colestipol, promethazine, glycopyrrolate, [place] lda, prednisone, and hyoscyamine. SOCIAL HISTORY: Non-contributory. 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 FAMILY HISTORY: Non-contributory. REVIEW OF SYSTEMS: Non-contributory. NEUROLOGICAL EXAMINATION: The patients vital signs are noted. The patients mavis rological examination shows cranial nerves II through XII are intact. Cerebella r function is normal. Motor examination is 5/5. Sensory examination is normal. Reflexes are normal. RADIOGRAPHS: The patient comes with an MRI which shows bulging discs mostly at L5-S1 and minimally at L4-5. PLAN: I spent some time going through the therapeutic options with the patient. The patient has chosen the course of physical therapy. We have given her a p rescription for this. She will return to see us in 3 months. Ascencion Tobar MD, FACS Professor Department of Neurosurgery JOSE/Mark [id number] cc: documented in this encounter Plan of Treatment Not on filedocumented as of this encounter Visit Diagnoses Diagnosis Lumbago documented in this encounter
--- OUTSIDE RECORDS SUMMARY | 2019-04-12 23:13 | XMS REPORT ---
Author Author Migration, Doctor Organization [facility] Address Unknown Phone Unavailable Care Team Providers Care Tank Truck Mechanic Name Role Phone Migration, Doctor Unavailable Unavailable PROBLEMS Type Condition ICD9-CM Code UFU35-HL Code Onset Dates Condition Status SNOMED Code Problem Injury, other and unspecified, unspecified site 959.9 Active 585073537 Problem Injury, other and unspecified, knee, leg, ankle, and foot 959.7 Active 531424912 Problem Other drug allergy 995.27 Active 075665053 Problem Pain in joint, ankle and foot 719.47 Active 419376058 Problem Acute pain due to trauma 338.11 Active 710839692 Problem Diarrhea 787.91 Active 63271557 Problem Nausea alone 787.02 Active 823700660 Problem Shortness of breath 786.05 Active 370940876 Problem Other general symptoms 780.99 Active 275289701 ALLERGIES No Information ENCOUNTERS Encounter Location Date Diagnosis [facility] [address] [id number] 14 Oct, 2015 Dental examination Z01.20 [facility] [place] [address] [address] Jan, [facility] [place] [id number] [place] [address] Jan, [facility] [place] [id number] [place] [address] February, [facility] [place] [address] [address] February, [facility] [place] [address] [address] May, [facility] [place] [address] [address] May, [facility] [place] [address] [place] [address] Apr, [facility] [address] [id number] [place] [address] Mar, [facility] [place] [facility] [address] [id number] [place] [address] February, [facility] [address] [id number] [place] [address] February, [facility] [place] [facility] [address] [id number] [place] [address] February, [facility] [place] [facility] [address] [id number] [place] [address] 26 Jan, 2012 [facility] [place] [facility] [address] [id number] [place] [address] 13 Jan, 2012 [facility] [address] [id number] [place] [address] Jan, [facility] [place] [facility] [address] [id number] [place] [address] Jan, [facility] [place] [facility] [address] [id number] [place] [address] 02 Jan, 2012 [facility] [place] [facility] [address] [id number] [place] [address] Dec, [facility] [place] [facility] [address] [id number] [place] [address] Dec, [facility] [place] [facility] [address] [id number] [place] [address] 05 Dec, 2011 [facility] [place] [facility] [address] [id number] [place] [address] Dec, [facility] [place] [facility] [address] [id number] [place] [address] Nov, [facility] [place] [facility] [address] [id number] [place] [address] Nov, [facility] [place] [facility] [address] [id number] [place] [address] Nov, [facility] [place] [facility] [address] [id number] [place] [address] Nov, [facility] [place] [facility] [address] [id number] [place] [address] Nov, [facility] [place] [facility] [address] [id number] [place] [address] Nov, [facility] [place] [facility] [address] [id number] [place] [address] 14 Nov, 2011 [facility] [place] [facility] [address] [id number] [place] [address] 10 Nov, 2011 [facility] [place] [facility] [address] [id number] [place] [address] 08 Nov, 2011 [facility] [place] [facility] [address] [id number] [address] Nov, [facility] [address] [facility] [id number] [id number] Nov, [facility] [address] [id number] [address] Nov, [facility] [place] [facility] [address] [id number], [place] [address] Oct, [facility] [place] [facility] [address] [id number], [place] [address] Oct, [facility] [place] [facility] [address] [id number] [place] [address] Oct, [facility] [place] [facility] [address] [id number][place] [address] Oct, [facility] [place] [facility] [address] [id number] [place] [address] Sep, [facility] [place] [facility] [address] [id number] [place] [address] 14 Sep, 2011 [facility] [place] [facility] [address] [id number] [place] [address] 13 Sep, 2011 [facility] [place] [facility] [address] [id number] [place] [address] Sep, [facility] [place] [facility] [address] [id number] [place] [address] Aug, [facility] [place] [facility] [address] [id number] [place] [address] Aug, [facility] [place] [facility] [address] [id number] [place] [address] Aug, [facility] [place] [facility] [address] [id number] [place] [address] Aug, [facility] [place] [facility] [address] [id number] [place] [address] Jul, [facility] [place] [facility] [address] [id number] [place] [address] Jul, [facility] [place] [facility] [address] [id number] [place] [address] 18 Jul, 2011 [facility] [place] [facility] [address] [facility] [id number] [place] [address] Oct, [facility] [place] [facility] [address] [id number] [place] [address] Jul, [facility] [place] [facility] [address] [id number], [place] [address] 19 Jul, 2010 [facility] [place] [facility] [address] [id number] [place] [address] 19 Jul, 2010 [facility] [place] [facility] [address] [id number] [place] [address] 19 Jul, 2010 [facility] [place] [facility] [address] [facility] [id number], [place] [address] 15 Jul, 2010 [facility] [place] [facility] [address] [id number] [address] Dec, [facility] [place] [address], [place] [address] Nov, [facility] [place] [address] [address] Sep, [facility] [place] [address], [place] [address] Aug, [facility] [place] [address], [place] [address] Jul, [facility] [place] [address] [id number] [address] 16 Jun, 2009 IMMUNIZATIONS No Known Immunizations SOCIAL HISTORY Never Assessed REASON FOR VISIT EMR-[facility] PLAN OF CARE VITAL SIGNS MEDICATIONS No Known Medications RESULTS No Results PROCEDURES No Known procedures INSTRUCTIONS MEDICATIONS ADMINISTERED No Known Medications MEDICAL (GENERAL) HISTORY Type Description Date Medical History asthma Medical History crohns Medical History arthritis Medical History back trouble Hospitalization History crohns disease
--- OUTSIDE RECORDS SUMMARY | 2019-04-12 23:13 | XMS REPORT ---
Author Author Migration, Doctor Organization [facility] Address Unknown Phone Unavailable Care Team Providers Care Rn Patient Care Name Role Phone Migration, Doctor Unavailable Unavailable PROBLEMS Type Condition ICD9-CM Code UXX80-LN Code Onset Dates Condition Status SNOMED Code Problem Injury, other and unspecified, unspecified site 959.9 Active 681230149 Problem Injury, other and unspecified, knee, leg, ankle, and foot 959.7 Active 330225647 Problem Other drug allergy 995.27 Active 833134730 Problem Pain in joint, ankle and foot 719.47 Active 708686066 Problem Acute pain due to trauma 338.11 Active 969407681 Problem Diarrhea 787.91 Active 44813722 Problem Nausea alone 787.02 Active 474802502 Problem Shortness of breath 786.05 Active 010015102 Problem Other general symptoms 780.99 Active 086047272 ALLERGIES No Information ENCOUNTERS Encounter Location Date Diagnosis [facility] [address] [id number] 14 Oct, 2015 Dental examination Z01.20 [facility] [address] [address] Jan, [facility] [id number] [place] [address] Jan, [facility] [id number] [place] [address] February, [facility] [address] [address] February, [facility] [address] [address] May, [facility] [address] [address] May, [facility] [address] [place] [address] Apr, [facility] [address] [id number] [place] [address] Mar, [facility] [place] [facility] [address] [id number] [place] [address] February, [facility] [address] [id number] [place] [address] February, [facility] [place] [facility] [address] [id number] [place] [address] February, [facility] [place] [facility] [address] [id number] [place] [address] 26 Jan, 2012 [facility] [place] [facility] [address] [id number] [place] [address] 13 Jan, 2012 [facility] [address] [id number] [place] [address] Jan, [facility] [place] [facility] [address] [id number] [place] [address] Jan, [facility] [place] [facility] [address] [id number] [place] [address] 02 Jan, 2012 [facility] [place] [facility] [address] [id number] [place] [address] Dec, [facility] [place] [facility] [address] [id number] [place] [address] Dec, [facility] [place] [facility] [address] [id number] [place] [address] 05 Dec, 2011 [facility] [place] [facility] [address] [id number] [place] [address] Dec, [facility] [place] [facility] [address] [id number] [place] [address] Nov, [facility] [place] [facility] [address] [id number] [place] [address] Nov, [facility] [place] [facility] [address] [id number] [place] [address] Nov, [facility] [place] [facility] [address] [id number] [place] [address] Nov, [facility] [place] [facility] [address] [id number] [place] [address] Nov, [facility] [place] [facility] [address] [id number] [place] [address] Nov, [facility] [place] [facility] [address] [id number] [place] [address] 14 Nov, 2011 [facility] [place] [facility] [address] [id number] [place] [address] 10 Nov, 2011 [facility] [place] [facility] [address] [id number] [place] [address] 08 Nov, 2011 [facility] [place] [facility] [address] [id number], [place] [address] Nov, [facility] [address] [facility] [id number] [id number] Nov, [facility] [address] [id number], [place] [address] Nov, [facility] [place] [facility] [address] [id number], [place] [address] Oct, [facility] [place] [facility] [address] [id number], [place] [address] Oct, [facility] [place] [facility] [address] [id number] [place] [address] Oct, [facility] [place] [facility] [address] [id number], [place] [address] Oct, [facility] [place] [facility] [address] [id number] [place] [address] Sep, [facility] [place] [facility] [address] [id number] [place] [address] 14 Sep, 2011 [facility] [place] [facility] [address] [id number] [place] [address] 13 Sep, 2011 [facility] [place] [facility] [address] [id number] [place] [address] Sep, [facility] [place] [facility] [address] [id number] [place] [address] Aug, [facility] [place] [facility] [address] [id number] [place] [address] Aug, [facility] [place] [facility] [address] [id number] [place] [address] Aug, [facility] [place] [facility] [address] [id number] [place] [address] Aug, [facility] [place] [facility] [address] [id number] [place] [address] Jul, [facility] [place] [facility] [address] [id number] [place] [address] Jul, [facility] [place] [facility] [address] [id number] [place] [address] 18 Jul, 2011 [facility] [place] [facility] [address] [facility] [id number] [place] [address] Oct, [facility] [place] [facility] [address] [id number] [place] [address] Jul, [facility] [place] [facility] [address] [id number], [place] [address] 19 Jul, 2010 [facility] [place] [facility] [address] [id number] [place] [address] 19 Jul, 2010 [facility] [place] [facility] [address] [id number] [place] [address] 19 Jul, 2010 [facility] [place] [facility] [address] [facility] [id number], [place] [address] 15 Jul, 2010 [facility] [place] [facility] [address] [id number], [place] [address] Dec, [facility] [address], [place] [address] Nov, [facility] [address], [place] [address] Sep, [facility] [address], [place] [address] Aug, [facility] [address], [place] [address] Jul, [facility] [address] [id number], [place] [address] 16 Jun, 2009 IMMUNIZATIONS No Known Immunizations SOCIAL HISTORY Never Assessed REASON FOR VISIT [place] [place]AN OF CARE VITAL SIGNS MEDICATIONS No Known Medications RESULTS No Results PROCEDURES No Known procedures INSTRUCTIONS MEDICATIONS ADMINISTERED No Known Medications MEDICAL (GENERAL) HISTORY Type Description Date Medical History asthma Medical History crohns Medical History arthritis Medical History back trouble Hospitalization History crohns disease
--- OUTSIDE RECORDS SUMMARY | 2019-04-12 23:13 | XMS REPORT ---
Author Author Migration, Doctor Organization [facility] Address Unknown Phone Unavailable Care Team Providers Care Crystallographer Name Role Phone Migration, Doctor Unavailable Unavailable PROBLEMS Type Condition ICD9-CM Code VGN22-FH Code Onset Dates Condition Status SNOMED Code Problem Injury, other and unspecified, unspecified site 959.9 Active 464225935 Problem Injury, other and unspecified, knee, leg, ankle, and foot 959.7 Active 063387757 Problem Other drug allergy 995.27 Active 170177326 Problem Pain in joint, ankle and foot 719.47 Active 806508865 Problem Acute pain due to trauma 338.11 Active 179255236 Problem Diarrhea 787.91 Active 41084321 Problem Nausea alone 787.02 Active 068239975 Problem Shortness of breath 786.05 Active 304749462 Problem Other general symptoms 780.99 Active 083178266 ALLERGIES No Information ENCOUNTERS Encounter Location Date Diagnosis [facility] [address] [id number] 14 Oct, 2015 Dental examination Z01.20 [facility] [address] [address] Jan, [facility] [id number] [place] [address] Jan, [facility] [id number] [place] [address] February, [facility] [address] [address] February, [facility] [address] [address] May, [facility] [address] [address] May, [facility] [address] [place] [address] Apr, [facility] [address] [id number] [place] [address] Mar, [facility] [place] [facility] [address] [id number] [place] [address] February, [facility] [address] [id number] [place] [address] February, [facility] [place] [facility] [address] [id number] [place] [address] February, [facility] [place] [facility] [address] [id number] [place] [address] 26 Jan, 2012 [facility] [place] [facility] [address] [id number] [place] [address] 13 Jan, 2012 [facility] [address] [id number] [place] [address] Jan, [facility] [place] [facility] [address] [id number] [place] [address] Jan, [facility] [place] [facility] [address] [id number] [place] [address] 02 Jan, 2012 [facility] [place] [facility] [address] [id number] [place] [address] Dec, [facility] [place] [facility] [address] [id number] [place] [address] Dec, [facility] [place] [facility] [address] [id number] [place] [address] 05 Dec, 2011 [facility] [place] [facility] [address] [id number] [place] [address] Dec, [facility] [place] [facility] [address] [id number] [place] [address] Nov, [facility] [place] [facility] [address] [id number] [place] [address] Nov, [facility] [place] [facility] [address] [id number] [place] [address] Nov, [facility] [place] [facility] [address] [id number] [place] [address] Nov, [facility] [place] [facility] [address] [id number] [place] [address] Nov, [facility] [place] [facility] [address] [id number] [place] [address] Nov, [facility] [place] [facility] [address] [id number] [place] [address] 14 Nov, 2011 [facility] [place] [facility] [address] [id number] [place] [address] 10 Nov, 2011 [facility] [place] [facility] [address] [id number] [place] [address] 08 Nov, 2011 [facility] [place] [facility] [address] [id number], [place] [address] Nov, [facility] [address] [facility] [id number] [id number] Nov, [facility] [address] [id number], [place] [address] Nov, [facility] [place] [facility] [address] [id number], [place] [address] Oct, [facility] [place] [facility] [address] [id number], [place] [address] Oct, [facility] [place] [facility] [address] [id number] [place] [address] Oct, [facility] [place] [facility] [address] [id number], [place] [address] Oct, [facility] [place] [facility] [address] [id number] [place] [address] Sep, [facility] [place] [facility] [address] [id number] [place] [address] 14 Sep, 2011 [facility] [place] [facility] [address] [id number] [place] [address] 13 Sep, 2011 [facility] [place] [facility] [address] [id number] [place] [address] Sep, [facility] [place] [facility] [address] [id number] [place] [address] Aug, [facility] [place] [facility] [address] [id number] [place] [address] Aug, [facility] [place] [facility] [address] [id number] [place] [address] Aug, [facility] [place] [facility] [address] [id number] [place] [address] Aug, [facility] [place] [facility] [address] [id number] [place] [address] Jul, [facility] [place] [facility] [address] [id number] [place] [address] Jul, [facility] [place] [facility] [address] [id number] [place] [address] 18 Jul, 2011 [facility] [place] [facility] [address] [facility] [id number] [place] [address] Oct, [facility] [place] [facility] [address] [id number] [place] [address] Jul, [facility] [place] [facility] [address] [id number], [place] [address] 19 Jul, 2010 [facility] [place] [facility] [address] [id number] [place] [address] 19 Jul, 2010 [facility] [place] [facility] [address] [id number] [place] [address] 19 Jul, 2010 [facility] [place] [facility] [address] [facility] [id number], [place] [address] 15 Jul, 2010 [facility] [place] [facility] [address] [id number], [place] [address] Dec, [facility] [id number] [address] Nov, [facility] [id number] [address] Sep, [facility] [id number] [address] Aug, [facility] [id number], [place] [address] Jul, [facility] [address] [id number], [place] [address] 16 Jun, 2009 IMMUNIZATIONS No Known Immunizations SOCIAL HISTORY Never Assessed REASON FOR VISIT EMR-[facility] PLAN OF CARE VITAL SIGNS MEDICATIONS No Known Medications RESULTS No Results PROCEDURES No Known procedures INSTRUCTIONS MEDICATIONS ADMINISTERED No Known Medications MEDICAL (GENERAL) HISTORY Type Description Date Medical History asthma Medical History crohns Medical History arthritis Medical History back trouble Hospitalization History crohns disease
--- OUTSIDE RECORDS SUMMARY | 2019-04-12 23:13 | XMS REPORT ---
Author Author Migration, Doctor Organization [facility] Address Unknown Phone Unavailable Care Team Providers Care Job Estimator Name Role Phone Migration, Doctor Unavailable Unavailable PROBLEMS Type Condition ICD9-CM Code UHA34-LX Code Onset Dates Condition Status SNOMED Code Problem Injury, other and unspecified, unspecified site 959.9 Active 461935349 Problem Injury, other and unspecified, knee, leg, ankle, and foot 959.7 Active 778903142 Problem Other drug allergy 995.27 Active 246397800 Problem Pain in joint, ankle and foot 719.47 Active 716539599 Problem Acute pain due to trauma 338.11 Active 047068438 Problem Diarrhea 787.91 Active 16594268 Problem Nausea alone 787.02 Active 319065710 Problem Shortness of breath 786.05 Active 868675022 Problem Other general symptoms 780.99 Active [id number] ALLERGIES No Information ENCOUNTERS Encounter Location Date Diagnosis [facility] [address] [id number] 14 Oct, 2015 Dental examination Z01.20 [facility] [address] [address] 14 Jan, 2015 [facility] [id number] [place] [address] Jan, [facility] [id number] [place] [address] February, [facility] [address] [address] February, [facility] [address] [address] May, [facility] [address] [address] May, [facility] [address] [place] [address] Apr, [facility] [address] [id number] [place] [address] Mar, [facility] [place] [facility] [address] [id number] [place] [address] February, [facility] [address] [id number] [place] [address] February, [facility] [place] [facility] [address] [id number] [place] [address] February, [facility] [place] [facility] [address] [id number] [place] [address] 26 Jan, 2012 [facility] [place] [facility] [address] [id number] [place] [address] 13 Jan, 2012 [facility] [address] [id number] [place] [address] Jan, [facility] [place] [facility] [address] [id number] [place] [address] Jan, [facility] [place] [facility] [address] [id number] [place] [address] 02 Jan, 2012 [facility] [place] [facility] [address] [id number] [place] [address] Dec, [facility] [place] [facility] [address] [id number] [place] [address] Dec, [facility] [place] [facility] [address] [id number] [place] [address] 05 Dec, 2011 [facility] [place] [facility] [address] [id number] [place] [address] Dec, [facility] [place] [facility] [address] [id number] [place] [address] Nov, [facility] [place] [facility] [address] [id number] [place] [address] Nov, [facility] [place] [facility] [address] [id number] [place] [address] Nov, [facility] [place] [facility] [address] [id number] [place] [address] Nov, [facility] [place] [facility] [address] [id number] [place] [address] Nov, [facility] [place] [facility] [address] [id number] [place] [address] Nov, [facility] [place] [facility] [address] [id number] [place] [address] 14 Nov, 2011 [facility] [place] [facility] [address] [id number] [place] [address] 10 Nov, 2011 [facility] [place] [facility] [address] [id number] [place] [address] 08 Nov, 2011 [facility] [place] [facility] [address] [id number], [place] [address] Nov, [facility] [address] [facility] [id number] [address] Nov, [facility] [address] [id number], [place] [address] Nov, [facility] [place] [facility] [address] [id number], [place] [address] Oct, [facility] [place] [facility] [address] [id number], [place] [address] Oct, [facility] [place] [facility] [address] [id number] [place] [address] Oct, [facility] [place] [facility] [address] [id number], [place] [address] Oct, [facility] [place] [facility] [address] [id number] [place] [address] Sep, [facility] [place] [facility] [address] [id number] [place] [address] 14 Sep, 2011 [facility] [place] [facility] [address] [id number] [place] [address] 13 Sep, 2011 [facility] [place] [facility] [address] [id number] [place] [address] Sep, [facility] [place] [facility] [address] [id number] [place] [address] Aug, [facility] [place] [facility] [address] [id number] [place] [address] Aug, [facility] [place] [facility] [address] [id number] [place] [address] Aug, [facility] [place] [facility] [address] [id number] [place] [address] Aug, [facility] [place] [facility] [address] [id number] [place] [address] Jul, [facility] [place] [facility] [address] [id number] [place] [address] Jul, [facility] [place] [facility] [address] [id number] [place] [address] 18 Jul, 2011 [facility] [place] [facility] [address] [facility] [id number] [place] [address] Oct, [facility] [place] [facility] [address] [id number] [place] [address] Jul, [facility] [place] [facility] [address] [id number], [place] [address] 19 Jul, 2010 [facility] [place] [facility] [address] [id number] [place] [address] 19 Jul, 2010 [facility] [place] [facility] [address] [id number] [place] [address] 19 Jul, 2010 [facility] [place] [facility] [address] [facility] [id number], [place] [address] 15 Jul, 2010 [facility] [place] [facility] [address] [id number], [place] [address] Dec, [facility] [address], [place] [address] Nov, [facility] [address]65[address], [place] [address] Sep, [facility] [address], [place] [address] Aug, [facility] [address], [place] [address] Jul, [facility] [address] [id number], [place] [address] 16 Jun, 2009 IMMUNIZATIONS No Known Immunizations SOCIAL HISTORY Never Assessed REASON FOR VISIT EMR-[facility] PLAN OF CARE VITAL SIGNS MEDICATIONS No Known Medications RESULTS No Results PROCEDURES No Known procedures INSTRUCTIONS MEDICATIONS ADMINISTERED No Known Medications MEDICAL (GENERAL) HISTORY Type Description Date Medical History asthma Medical History crohns Medical History arthritis Medical History back trouble Hospitalization History crohns disease
--- OUTSIDE RECORDS SUMMARY | 2019-04-12 23:13 | XMS REPORT ---
Author Author Migration, Doctor Organization [facility] Address Unknown Phone Unavailable Care Team Providers Care Subpoena Server Name Role Phone Migration, Doctor Unavailable Unavailable PROBLEMS Type Condition ICD9-CM Code YUO63-GR Code Onset Dates Condition Status SNOMED Code Problem Injury, other and unspecified, unspecified site 959.9 Active 233503290 Problem Injury, other and unspecified, knee, leg, ankle, and foot 959.7 Active 685511153 Problem Other drug allergy 995.27 Active 074272637 Problem Pain in joint, ankle and foot 719.47 Active 161605422 Problem Acute pain due to trauma 338.11 Active 866673725 Problem Diarrhea 787.91 Active 29176229 Problem Nausea alone 787.02 Active 269758241 Problem Shortness of breath 786.05 Active 859486500 Problem Other general symptoms 780.99 Active 288291998 ALLERGIES No Information ENCOUNTERS Encounter Location Date Diagnosis [facility] [address] [id number] 14 Oct, 2015 Dental examination Z01.20 [facility] [address] [address] Jan, [facility] [id number] [place] [address] Jan, [facility] [id number] [place] [address] February, [facility] [address] [address] February, [facility] [address] [address] May, [facility] [address] [address] May, [facility] [address] [place] [address] Apr, [facility] [address] [id number] [place] [address] Mar, [facility] [place] [facility] [address] [id number] [place] [address] February, [facility] [address] [id number] [place] [address] February, [facility] [place] [facility] [address] [id number] [place] [address] February, [facility] [place] [facility] [address] [id number] [place] [address] 26 Jan, 2012 [facility] [place] [facility] [address] [id number] [place] [address] 13 Jan, 2012 [facility] [address] [id number] [place] [address] Jan, [facility] [place] [facility] [address] [id number] [place] [address] Jan, [facility] [place] [facility] [address] [id number] [place] [address] 02 Jan, 2012 [facility] [place] [facility] [address] [id number] [place] [address] Dec, [facility] [place] [facility] [address] [id number] [place] [address] Dec, [facility] [place] [facility] [address] [id number] [place] [address] 05 Dec, 2011 [facility] [place] [facility] [address] [id number] [place] [address] Dec, [facility] [place] [facility] [address] [id number] [place] [address] Nov, [facility] [place] [facility] [address] [id number] [place] [address] Nov, [facility] [place] [facility] [address] [id number] [place] [address] Nov, [facility] [place] [facility] [address] [id number] [place] [address] Nov, [facility] [place] [facility] [address] [id number] [place] [address] Nov, [facility] [place] [facility] [address] [id number] [place] [address] Nov, [facility] [place] [facility] [address] [id number] [place] [address] 14 Nov, 2011 [facility] [place] [facility] [address] [id number] [place] [address] 10 Nov, 2011 [facility] [place] [facility] [address] [id number] [place] [address] 08 Nov, 2011 [facility] [place] [facility] [address] [id number], [place] [address] Nov, [facility] [address] [facility] [id number] [id number] Nov, [facility] [address] [id number], [place] [address] Nov, [facility] [place] [facility] [address] [id number], [place] [address] Oct, [facility] [place] [facility] [address] [id number], [place] [address] Oct, [facility] [place] [facility] [address] [id number] [place] [address] Oct, [facility] [place] [facility] [address] [id number], [place] [address] Oct, [facility] [place] [facility] [address] [id number] [place] [address] Sep, [facility] [place] [facility] [address] [id number] [place] [address] 14 Sep, 2011 [facility] [place] [facility] [address] [id number] [place] [address] 13 Sep, 2011 [facility] [place] [facility] [address] [id number] [place] [address] Sep, [facility] [place] [facility] [address] [id number] [place] [address] Aug, [facility] [place] [facility] [address] [id number] [place] [address] Aug, [facility] [place] [facility] [address] [id number] [place] [address] Aug, [facility] [place] [facility] [address] [id number] [place] [address] Aug, [facility] [place] [facility] [address] [id number] [place] [address] Jul, [facility] [place] [facility] [address] [id number] [place] [address] Jul, [facility] [place] [facility] [address] [id number] [place] [address] 18 Jul, 2011 [facility] [place] [facility] [address] [facility] [id number] [place] [address] Oct, [facility] [place] [facility] [address] [id number] [place] [address] Jul, [facility] [place] [facility] [address] [id number], [place] [address] 19 Jul, 2010 [facility] [place] [facility] [address] [id number] [place] [address] 19 Jul, 2010 [facility] [place] [facility] [address] [id number] [place] [address] 19 Jul, 2010 [facility] [place] [facility] [address] [facility] [id number], [place] [address] 15 Jul, 2010 [facility] [place] [facility] [address] [id number], [place] [address] Dec, [facility] [address], [place] [address] Nov, [facility] [address], [place] [address] Sep, [facility] [address], [place] [address] Aug, [facility] [address], [place] [address] Jul, [facility] [address] [id number], [place] [address] 16 Jun, 2009 IMMUNIZATIONS No Known Immunizations SOCIAL HISTORY Never Assessed REASON FOR VISIT [place] [place] OF CARE VITAL SIGNS MEDICATIONS No Known Medications RESULTS No Results PROCEDURES No Known procedures INSTRUCTIONS MEDICATIONS ADMINISTERED No Known Medications MEDICAL (GENERAL) HISTORY Type Description Date Medical History asthma Medical History crohns Medical History arthritis Medical History back trouble Hospitalization History crohns disease
--- OUTSIDE RECORDS SUMMARY | 2019-04-12 23:13 | XMS REPORT ---
Author Author Migration, Doctor Organization [facility] Address Unknown Phone Unavailable Care Team Providers Care Assistant Research Scientist Name Role Phone Migration, Doctor Unavailable Unavailable PROBLEMS Type Condition ICD9-CM Code DZA53-QM Code Onset Dates Condition Status SNOMED Code Problem Injury, other and unspecified, unspecified site 959.9 Active 250812860 Problem Injury, other and unspecified, knee, leg, ankle, and foot 959.7 Active 282988322 Problem Other drug allergy 995.27 Active 845308507 Problem Pain in joint, ankle and foot 719.47 Active 133092461 Problem Acute pain due to trauma 338.11 Active 426855781 Problem Diarrhea 787.91 Active 36448921 Problem Nausea alone 787.02 Active 401727165 Problem Shortness of breath 786.05 Active 609574449 Problem Other general symptoms 780.99 Active 545212969 ALLERGIES No Information ENCOUNTERS Encounter Location Date Diagnosis [facility] [address] [id number] 14 Oct, 2015 Dental examination Z01.20 [facility] [address] [address] Jan, [facility] [id number] [place] [address] Jan, [facility] [id number] [place] [address] February, [facility] [address] [address] February, [facility] [address] [address] May, [facility] [address] [address] May, [facility] [address] [place] [address] Apr, [facility] [address] [id number] [place] [address] Mar, [facility] [place] [facility] [address] [id number] [place] [address] February, [facility] [address] [id number] [place] [address] February, [facility] [place] [facility] [address] [id number] [place] [address] February, [facility] [place] [facility] [address] [id number] [place] [address] 26 Jan, 2012 [facility] [place] [facility] [address] [id number] [place] [address] 13 Jan, 2012 [facility] [address] [id number] [place] [address] Jan, [facility] [place] [facility] [address] [id number] [place] [address] Jan, [facility] [place] [facility] [address] [id number] [place] [address] 02 Jan, 2012 [facility] [place] [facility] [address] [id number] [place] [address] Dec, [facility] [place] [facility] [address] [id number] [place] [address] Dec, [facility] [place] [facility] [address] [id number] [place] [address] 05 Dec, 2011 [facility] [place] [facility] [address] [id number] [place] [address] Dec, [facility] [place] [facility] [address] [id number] [place] [address] Nov, [facility] [place] [facility] [address] [id number] [place] [address] Nov, [facility] [place] [facility] [address] [id number] [place] [address] Nov, [facility] [place] [facility] [address] [id number] [place] [address] Nov, [facility] [place] [facility] [address] [id number] [place] [address] Nov, [facility] [place] [facility] [address] [id number] [place] [address] Nov, [facility] [place] [facility] [address] [id number] [place] [address] 14 Nov, 2011 [facility] [place] [facility] [address] [id number] [place] [address] 10 Nov, 2011 [facility] [place] [facility] [address] [id number] [place] [address] 08 Nov, 2011 [facility] [place] [facility] [address] [id number], [place] [address] Nov, [facility] [address] [facility] [id number] [address] Nov, [facility] [address] [id number], [place] [address] Nov, [facility] [place] [facility] [address] [id number], [place] [address] Oct, [facility] [place] [facility] [address] [id number], [place] [address] Oct, [facility] [place] [facility] [address] [id number] [place] [address] Oct, [facility] [place] [facility] [address] [id number], [place] [address] Oct, [facility] [place] [facility] [address] [id number] [place] [address] Sep, [facility] [place] [facility] [address] [id number] [place] [address] 14 Sep, 2011 [facility] [place] [facility] [address] [id number] [place] [address] 13 Sep, 2011 [facility] [place] [facility] [address] [id number] [place] [address] Sep, [facility] [place] [facility] [address] [id number] [place] [address] Aug, [facility] [place] [facility] [address] [id number] [place] [address] Aug, [facility] [place] [facility] [address] [id number] [place] [address] Aug, [facility] [place] [facility] [address] [id number] [place] [address] Aug, [facility] [place] [facility] [address] [id number] [place] [address] Jul, [facility] [place] [facility] [address] [id number] [place] [address] Jul, [facility] [place] [facility] [address] [id number] [place] [address] 18 Jul, 2011 [facility] [place] [facility] [address] [facility] [id number] [place] [address] Oct, [facility] [place] [facility] [address] [id number] [place] [address] Jul, [facility] [place] [facility] [address] [id number], [place] [address] 19 Jul, 2010 [facility] [place] [facility] [address] [id number] [place] [address] 19 Jul, 2010 [facility] [place] [facility] [address] [id number] [place] [address] 19 Jul, 2010 [facility] [place] [facility] [address] [facility] [id number], [place] [address] 15 Jul, 2010 [facility] [place] [facility] [address] [id number], [place] [address] Dec, [facility] [id number] [address] Nov, [facility] [id number] [address] Sep, [facility] [id number] [address] Aug, [facility] [id number], [place] [address] Jul, [facility] [address] [id number], [place] [address] 16 Jun, 2009 IMMUNIZATIONS No Known Immunizations SOCIAL HISTORY Never Assessed REASON FOR VISIT EMR-[facility] PLAN OF CARE VITAL SIGNS MEDICATIONS No Known Medications RESULTS No Results PROCEDURES No Known procedures INSTRUCTIONS MEDICATIONS ADMINISTERED No Known Medications MEDICAL (GENERAL) HISTORY Type Description Date Medical History asthma Medical History crohns Medical History arthritis Medical History back trouble Hospitalization History crohns disease
--- OUTSIDE RECORDS SUMMARY | 2019-04-12 23:14 | XMS REPORT ---
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 Name Role Phone Migration, Doctor Unavailable Unavailable PROBLEMS Type Condition ICD9-CM Code WOB45-ZM Code Onset Dates Condition Status SNOMED Code Problem Injury, other and unspecified, unspecified site 959.9 Active 629319504 Problem Injury, other and unspecified, knee, leg, ankle, and foot 959.7 Active 156001243 Problem Other drug allergy 995.27 Active 561349286 Problem Pain in joint, ankle and foot 719.47 Active 024586799 Problem Acute pain due to trauma 338.11 Active 776825823 Problem Diarrhea 787.91 Active 56577864 Problem Nausea alone 787.02 Active 689446138 Problem Shortness of breath 786.05 Active 349951573 Problem Other general symptoms 780.99 Active 659259987 ALLERGIES No Information ENCOUNTERS Encounter Location Date Diagnosis [facility] [address] [id number] 14 Oct, 2015 Dental examination Z01.20 [facility] [address] [address] Jan, [facility] [id number] [place] [address] Jan, [facility] [id number] [place] [address] February, [facility] [address] [address] February, [facility] [address] [address] May, [facility] [address] [address] May, [facility] [address] [place] [address] Apr, [facility] [address] [id number] [place] [address] Mar, [facility] [place] [facility] [address] [id number] [place] [address] February, [facility] [address] [id number] [place] [address] February, [facility] [place] [facility] [address] [id number] [place] [address] February, [facility] [place] [facility] [address] [id number] [place] [address] 26 Jan, 2012 [facility] [place] [facility] [address] [id number] [place] [address] 13 Jan, 2012 [facility] [address] [id number] [place] [address] Jan, [facility] [place] [facility] [address] [id number] [place] [address] Jan, [facility] [place] [facility] [address] [id number] [place] [address] 02 Jan, 2012 [facility] [place] [facility] [address] [id number] [place] [address] Dec, [facility] [place] [facility] [address] [id number] [place] [address] Dec, [facility] [place] [facility] [address] [id number] [place] [address] 05 Dec, 2011 [facility] [place] [facility] [address] [id number] [place] [address] Dec, [facility] [place] [facility] [address] [id number] [place] [address] Nov, [facility] [place] [facility] [address] [id number] [place] [address] Nov, [facility] [place] [facility] [address] [id number] [place] [address] Nov, [facility] [place] [facility] [address] [id number] [place] [address] Nov, [facility] [place] [facility] [address] [id number] [place] [address] Nov, [facility] [place] [facility] [address] [id number] [place] [address] Nov, [facility] [place] [facility] [address] [id number] [place] [address] 14 Nov, 2011 [facility] [place] [facility] [address] [id number] [place] [address] 10 Nov, 2011 [facility] [place] [facility] [address] [id number] [place] [address] 08 Nov, 2011 [facility] [place] [facility] [address] [id number] [place] [address] Nov, [facility] [address] [facility] [id number] [id number] Nov, [facility] [address] [id number] [place] [address] Nov, [facility] [place] [facility] [address] [id number] [place] [address] Oct, [facility] [place] [facility] [address] [id number] [place] [address] Oct, [facility] [place] [facility] [address] [id number] [place] [address] Oct, [facility] [place] [facility] [address] [id number] [place] [address] Oct, [facility] [place] [facility] [address] [id number] [place] [address] Sep, [facility] [place] [facility] [address] [id number] [place] [address] 14 Sep, 2011 [facility] [place] [facility] [address] [id number] [place] [address] 13 Sep, 2011 [facility] [place] [facility] [address] [id number] [place] [address] Sep, [facility] [place] [facility] [address] [id number] [place] [address] Aug, [facility] [place] [facility] [address] [id number] [place] [address] Aug, [facility] [place] [facility] [address] [id number] [place] [address] Aug, [facility] [place] [facility] [address] [id number] [place] [address] Aug, [facility] [place] [facility] [address] [id number] [place] [address] Jul, [facility] [place] [facility] [address] [id number] [place] [address] Jul, [facility] [place] [facility] [address] [id number] [place] [address] 18 Jul, 2011 [facility] [place] [facility] [address] [facility] [id number] [place] [address] Oct, [facility] [place] [facility] [address] [id number] [place] [address] Jul, [facility] [place] [facility] [address] [id number] [place] [address] 19 Jul, 2010 [facility] [place] [facility] [address] [id number] [place] [address] 19 Jul, 2010 [facility] [place] [facility] [address] [id number] [place] [address] 19 Jul, 2010 [facility] [place] [facility] [address] [facility] [id number] [place] [address] 15 Jul, 2010 [facility] [place] [facility] [address] [id number] [place] [address] Dec, [facility] [id number] [place] [address] Nov, [facility] [id number] [place] [address] Sep, [facility] [id number] [place] [address] Aug, [facility] [id number] [place] [address] Jul, [facility] [address] [id number] [place] [address] 16 Jun, 2009 IMMUNIZATIONS No Known Immunizations SOCIAL HISTORY Never Assessed REASON FOR VISIT EMR-[facility] PLAN OF CARE VITAL SIGNS MEDICATIONS No Known Medications RESULTS No Results PROCEDURES No Known procedures INSTRUCTIONS MEDICATIONS ADMINISTERED No Known Medications MEDICAL (GENERAL) HISTORY Type Description Date Medical History asthma Medical History crohns Medical History arthritis Medical History back trouble Hospitalization History crohns disease
== END 2019-04-12 21:20 | disposition home or self-care (01) ==
LOC: EDUNIT# 17:02 → ER 17:03
DX: K50.919 Crohn's disease, unspecified, with unspecified complications (principal); J45.909 Unspecified asthma, uncomplicated; I10 Essential (primary) hypertension; K21.9 Gastro-esophageal reflux disease without esophagitis; F41.9 Anxiety disorder, unspecified; Z87.442 Personal history of urinary calculi; Z87.448 Personal history of other diseases of urinary system; Z88.0 Allergy status to penicillin; Z88.6 Allergy status to analgesic agent; Z87.19 Personal history of other diseases of the digestive system; Z88.4 Allergy status to anesthetic agent; Z88.8 Allergy status to other drugs, medicaments and biological substances; Z88.2 Allergy status to sulfonamides; Z87.891 Personal history of nicotine dependence; Z90.49 Acquired absence of other specified parts of digestive tract; Z98.890 Other specified postprocedural states; Z90.710 Acquired absence of both cervix and uterus; Z98.51 Tubal ligation status
CPT/HCPCS: 36415; 80053; 81000; 85025; 96361; 96374; 96375

== ENCOUNTER 2019-06-14 16:40 | Emergency (ER) | payer OTHER ==
[~2019-06-14] VITALS: Ht 160 cm; Wt 87.1 kg
[~2019-06-14 16:40] MED LIST changes: -OMEP20CA12 PO; +OMEP20CA13 PO
--- NOTE | 2019-06-14 17:49 | Diagnostic Imaging Report ---
INDICATION: Left shoulder injury. COMPARISON: None. FINDINGS: Three views of the left shoulder demonstrate no fracture or dislocation. Articular surfaces are normal. There is no osseous lesion. IMPRESSION: Negative left shoulder. Dictated by: Dictated on workstation # [id number]
--- NOTE | 2019-06-14 17:54 | ED Upper Extremity ---
General Chief Complaint: General Problems/Pain Stated Complaint: LEFT SHOULDER PAIN Nursing Triage Note: was at work yesterday liftint heavy crates when she got pain in her L shoulder Nursing Sepsis Screen: No Definite Risk Source: patient History of Present Illness Date Seen by Provider: Jun 14, 2019 Time Seen by Provider: 17:27 Initial Comments PT ARRIVES VIA POV C/O LEFT SHOULDER PAIN SHOULDER STARTED HURTING A FEW WEEKS AGO, AND IS GETTING WORSE STARTED A NEW POSITION AT WORK ( WORK'S AT [employer]) AND HAS BEEN LIFTING AND MOVING HEAVY CRATES PT STATES SHE REPORTED IT TO HER EMPLOYER "WEDNESDAY OR YESTERDAY" PT HAS NOT TAKEN ANYTHING FOR PAIN DENIES PRIOR PROBLEMS WITH THIS SHOULDER SYMPTOMS NO DIFFERENT TODAY HAS NOT SOUGHT CARE UNTIL TODAY NO SWELLING OR BRUISING NO PARESTHESIAS OR MOTOR DEFICITS DAUGHTER HAD ELECTIVE SURGERY HERE TODAY, SO PT DECIDED TO CHECK INTO ER FOR THIS PROBLEM, SHE HAS BEEN HERE IN HOSPITAL ALL DAY WITH HER. PT STATES SHE WAS SUPPOSED TO WORK TODAY/TONIGHT AND TOMORROW, BUT "CALLED IN TONIGHT" PT WITH MULTITUDE OF VISITS--NEARLY ALL FOR PAIN COMPLAINTS. PT HAS HAD 6 VISITS IN 2019 PCP: DR. ARMAS Allergies and Home Medications Allergies Coded Allergies: Penicillins (Verified Allergy, Mild, HIVES, 04/12/19) NSAIDS (Non-Steroidal Anti-Inflamma (Verified Allergy, Unknown, 04/12/19) UNABLE TO TAKE D/T CROHNS DISEASE Sulfa (Sulfonamide Antibiotics) (Verified Allergy, Unknown, 04/12/19) BREAK OUT IN A RED RASH WITH VOMITING ketorolac tromethamine (Unverified Allergy, Unknown, 04/12/19) UNABLE TO TAKE D/T CROHNS DISEASE naproxen (Unverified Allergy, Unknown, 04/12/19) UNABLE TO TAKE D/T CROHNS DISEASE tramadol (Verified Allergy, Unknown, 04/12/19) UNABLE TO TAKE D/T CROHNS DISEASE Home Medications Acetaminophen 500 Mg Tablet, 1,000 MG PO TID PRN for PAIN-MILD TO MODERATE, (Reported) Adalimumab 40 Mg/0.8 Ml Syringekit, 40 MG SQ Hewitt, (Reported) Albuterol Sulfate 6.7 Gm Hfa.aer.ad, 2 PUFF IH Q6H PRN for SHORTNESS OF BREATH Prescribed by: IGNACIO SHIELDS on 01/31/181933 Calcium Carbonate 600 Mg Tablet, 600 MG PO DAILY, (Reported) Cyclobenzaprine HCl 10 Mg Tablet, 10 MG PO Q8H Prescribed by: JOSE ASH on 06/14/191808 Hydrocodone Bit/Acetaminophen 1 Tab Tab, 1 TAB PO Q6H PRN for PAIN-MODERATE Prescribed by: CHELE ANGEL on 02/08/19 09 Methylprednisolone 4 Mg Tab.ds.pk, 4 MG PO UD Prescribed by: JOSE ASH on 06/14/191808 Omeprazole 40 Mg Capsule.dr, 40 MG PO DAILY, (Reported) Patient Home Medication List Home Medication List Reviewed: Yes Review of Systems Constitutional: no symptoms reported Respiratory: no symptoms reported Cardiovascular: no symptoms reported Gastrointestinal: no symptoms reported Genitourinary: no symptoms reported Musculoskeletal: see HPI Skin: no symptoms reported Psychiatric/Neurological: No Symptoms Reported Past Swfdvjm-Wuaaav-Qbnbkt Hx Past Med/Social Hx: Reviewed and Corrections made Patient Social History Alcohol Use: Denies Use Recreational Drug Use: No (SMOKES 1/2 PPD) Smoking Status: Current Everyday Smoker (1/2 PPD) Type Used: Cigarettes 2nd Hand Smoke Exposure: Yes Recent Foreign Travel: No Contact w/Someone Who Travel: No Recent Infectious Disease Expo: No Recent Hopitalizations: Yes (DECEMBER 2018-CROHNS) Immunizations Up To Date Tetanus Booster (TDap): Unknown PED Vaccines UTD: Yes Date of Pneumonia Vaccine: Nov 04, 2010 Date of Influenza Vaccine: Jul 12, 2011 Seasonal Allergies Seasonal Allergies: Yes Past Medical History Surgeries: Yes (EGD'S /COLONOSCOPIES; EXCISION OF RIGHT AXILLARY TISSUE FOR HYDRADENITIS 01/2019; HERNIA REPAIR WITH MESH 05/2018--[facility] 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 LLOYD IN [facility]. ) Abdominal Hernia, Gastroesophageal Reflux, Crohns Disease, Pancreatitis, Chronic Diarrhea, Ulcer Musculoskeletal: Yes (CHRONIC PAIN-WRISTS, LOWER BACK, HIPS, SI JOINT PAIN ) Back Injury, Chronic Back Pain Endocrine: No HEENT: Yes (GLASSES) Loss of Vision: Bilateral Hearing Impairment: Denies Cancer: No Psychosocial: Yes Anxiety Integumentary: No Blood Disorders: No Adverse Reaction/Blood Tranf: No (N/A) Family Medical History Family history: Diabetes mellitus 19 FATHER 19 MOTHER G8 SISTER No Pertinent Family Hx Physical Exam Vital Signs Vital Signs - First Documented 06/14/19 06/14/19 16:52 18:20 Temp 98.2 Pulse 89 Resp 18 B/P (MAP) 122/88 (99) Pulse Ox 98 O2 Delivery Room Air Capillary Refill : Less Than 3 Seconds Height, Weight, BMI Height: 5'3.00" Weight: 192lbs. 0.0oz. 87.261277dr; 33.5 BMI Method:Stated General Appearance: WD/WN, no apparent distress, other (TEXTING/PLAYING ON PHONE CONTINUOUSLY THROUGHOUT ER STAY--WILL NOT MAKE EYE CONTACT, SHE REFUSES TO STOP USING HER PHONE. FREELY USING LEFT ARM. DOES NOT APPEAR TO BE IN ANY DISCOMFORT OR DISTRESS) HEENT: PERRL/EOMI Neck: non-tender, full range of motion, supple, normal inspection Cardiovascular: normal peripheral pulses, regular rate, rhythm, no murmur Respiratory: chest non-tender, normal breath sounds, no respiratory distress Back: no CVA tenderness, no vertebral tenderness, other (TENDERNESS TO LEFT TRAPEZIUS MUSCLE--PALPATION REPRODUCES PAIN ) Shoulder: No bone tenderness; pain, soft tissue tenderness Elbow/Forearm: normal inspection Wrist: Yes normal inspection Hand: normal inspection Neurologic/Tendon: normal sensation, normal motor functions, normal tendon functions 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 Diagnostic Imaging Comments XRAYS LEFT SHOULDER--NO ACUTE PROCESS, PER RADIOLOGIST REPORT AT 1754 Reviewed: Reviewed by Me Departure Impression Primary Impression: LEFT SHOULDER AND TRAPEZIUS MUSCLE STRAIN Disposition: HOME, SELF-CARE Condition: Stable Departure-Patient Inst. Referrals: ROSANGELA ARMAS DO (PCP/Family) Primary Care Physician Patient Instructions: How to Use a Shoulder Sling, Shoulder Sprain (DC) Add. Discharge Instructions: WEAR SLING AT ALL TIMES ALTERNATE ICE AND HEAT TO SORE AREAS FOLLOW UP WITH OCCUPATIONAL HEALTH TOMORROW FOR FURTHER CARE NO WORK UNTIL RELEASED BY OCCUPATIONAL HEALTH All discharge instructions reviewed with patient and/or family. Voiced understanding. Scripts Cyclobenzaprine HCl (Cyclobenzaprine HCl) 10 Mg Tablet 10 MG PO Q8H, #15 TAB Prov: JOSE ASH DO 06/14/19 Methylprednisolone (Medrol) 4 Mg Tab.ds.pk 4 MG PO UD, #1 PKG Prov: JOSE ASH DO 06/14/19 JOSE ASH DO Jun 14, 2019 17:54
[2019-06-14] MEDS ORDERED: METH4TAB PO ×2 (18:08→18:09)
[2019-06-14] MEDS ORDERED: CYCL10TA9 PO ×2 (18:08→18:09)
[2019-06-14 18:20] VITALS: BP 122/88
== END 2019-06-14 18:21 | disposition home or self-care (01) ==
LOC: EDUNIT# 16:40 → ER 16:42
DX: S29.012A Strain of muscle and tendon of back wall of thorax, initial encounter (principal); S46.912A Strain of unspecified muscle, fascia and tendon at shoulder and upper arm level, left arm, initial encounter; J45.909 Unspecified asthma, uncomplicated; I10 Essential (primary) hypertension; F41.9 Anxiety disorder, unspecified; F17.210 Nicotine dependence, cigarettes, uncomplicated; Z87.442 Personal history of urinary calculi; Z90.49 Acquired absence of other specified parts of digestive tract; Z90.710 Acquired absence of both cervix and uterus; Z98.51 Tubal ligation status; Z88.0 Allergy status to penicillin; Z88.6 Allergy status to analgesic agent; Z88.2 Allergy status to sulfonamides; Z98.890 Other specified postprocedural states; X50.0XXA Overexertion from strenuous movement or load, initial encounter; Y92.59 Other trade areas as the place of occurrence of the external cause; Y99.0 Civilian activity done for income or pay
CPT/HCPCS: 73030

== ENCOUNTER → 2019-07-17 | Outpatient (REF) | payer OTHER ==
--- NOTE | 2019-07-17 09:41 | Diagnostic Imaging Report ---
EXAMINATION: Magnetic resonance imaging of the left shoulder without contrast. DATE: July 17, 2019. COMPARISON: Left shoulder radiographs June 14, 2019. HISTORY: 39-year-old female, left shoulder pain. Lifting injury in May 2019. TECHNIQUE: Magnetic Resonance Imaging sequences were performed of the shoulder without contrast. FINDINGS: ROTATOR CUFF, LIGAMENTS, TENDONS, AND MUSCLES: The supraspinatus, infraspinatus, teres minor, and subscapularis tendons and muscles are intact. There is normal rotator cuff muscle bulk and signal. LONG HEAD OF BICEPS: The biceps labral attachment and long head of the biceps tendon is intact. The long head of the biceps tendon is normally positioned within the bicipital groove. GLENOHUMERAL JOINT: The humeral head is mildly posteriorly subluxed. The labrum is grossly intact. There is no identified paralabral cyst. The articular cartilage is grossly intact. There is no joint effusion. ACROMIOCLAVICULAR JOINT: The acromioclavicular joint is normally aligned. The coracoclavicular and coracoacromial ligaments are intact. There are no degenerative changes of the acromioclavicular joint. BONE: There is no os acromiale. Additional osseous morphology is unremarkable. There is prominent edema like signal in the distal clavicle with lack of edema in the adjacent acromion. There is a nondisplaced fracture line involving the distal clavicle best illustrated on axial PD fat saturation sequence image 5. The additional bone marrow signal is unremarkable. BURSAE AND SOFT TISSUES: The bursae and soft tissue surrounding the shoulder are unremarkable. IMPRESSION: 1. Very prominent edema like signal in the distal clavicle with lack of edema in the acromion and a nondisplaced fracture line in the distal clavicle. This appearance is most commonly seen with a stress related fracture. 2. Intact acromioclavicular joint. 3. Intact rotator cuff. 4. Grossly intact labrum and unremarkable additional glenohumeral joint assessment. Dictated by: Dictated on workstation # [id number]
== END ==
LOC: RAD 07:59
PROVIDERS: ATTEND Nurse Practitioner Family
DX: S42.035A Nondisplaced fracture of lateral end of left clavicle, initial encounter for closed fracture (principal)
CPT/HCPCS: 73221

== ENCOUNTER 2019-07-31 21:54 | Emergency (ER) | payer OTHER ==
[~2019-07-31] VITALS: Ht 160 cm; Wt 87.0 kg
--- NOTE | 2019-07-31 22:05 | ED Upper Extremity ---
General Chief Complaint: Upper Extremity Stated Complaint: LEFT SHOULDER PAIN Source: patient Exam Limitations: no limitations History of Present Illness Date Seen by Provider: Jul 31, 2019 Time Seen by Provider: 22:03 Initial Comments ER with left shoulder pain. This was initially injured at work in May of this year. She had a negative x-ray done initially, followed that with an MRI of the left shoulder 2 weeks ago which showed some edema of the distal clavicle consistent with a stress fracture. She's been taking Tylenol without relief. Reports allergy to NSAIDs. She now states that she feels popping in her clavicle. Onset: other Severity: moderate Pain/Injury Location: left shoulder Method of Injury: other Modifying Factors: Worse With Movement Allergies and Home Medications Allergies Coded Allergies: Penicillins (Verified Allergy, Mild, HIVES, 04/12/19) NSAIDS (Non-Steroidal Anti-Inflamma (Verified Allergy, Unknown, 04/12/19) UNABLE TO TAKE D/T CROHNS DISEASE Sulfa (Sulfonamide Antibiotics) (Verified Allergy, Unknown, 04/12/19) BREAK OUT IN A RED RASH WITH VOMITING ketorolac tromethamine (Unverified Allergy, Unknown, 04/12/19) UNABLE TO TAKE D/T CROHNS DISEASE naproxen (Unverified Allergy, Unknown, 04/12/19) UNABLE TO TAKE D/T CROHNS DISEASE tramadol (Verified Allergy, Unknown, 04/12/19) UNABLE TO TAKE D/T CROHNS DISEASE Home Medications Acetaminophen 500 Mg Tablet, 1,000 MG PO TID PRN for PAIN-MILD TO MODERATE, (Reported) Adalimumab 40 Mg/0.8 Ml Syringekit, 40 MG SQ Hewitt, (Reported) Albuterol Sulfate 6.7 Gm Hfa.aer.ad, 2 PUFF IH Q6H PRN for SHORTNESS OF BREATH Prescribed by: IGNACIO SHIELDS on 01/31/18 193 Calcium Carbonate 600 Mg Tablet, 600 MG PO DAILY, (Reported) Cyclobenzaprine HCl 10 Mg Tablet, 10 MG PO Q8H Prescribed by: JOSE ASH on 06/14/19 180 Hydrocodone Bit/Acetaminophen 1 Tab Tab, 1 TAB PO Q6H PRN for PAIN-MODERATE Prescribed by: CHELE ANGEL on 02/08/19 09 Methylprednisolone 4 Mg Tab.ds.pk, 4 MG PO UD Prescribed by: JOSE ASH on 06/14/191808 Omeprazole 40 Mg Capsule., 40 MG PO DAILY, (Reported) Patient Home Medication List Home Medication List Reviewed: Yes Review of Systems Constitutional: see HPI EENTM: see HPI Respiratory: no symptoms reported Cardiovascular: no symptoms reported Genitourinary: no symptoms reported Musculoskeletal: see HPI Skin: no symptoms reported Psychiatric/Neurological: No Symptoms Reported Past Vjbceus-Gyrgnt-Slhdtl Hx Patient Social History Type Used: Cigarettes 2nd Hand Smoke Exposure: Yes Recent Foreign Travel: No Contact w/Someone Who Travel: No Recent Hopitalizations: Yes (DECEMBER 2018-CROHNS) Immunizations Up To Date Tetanus Booster (TDap): Unknown PED Vaccines UTD: Yes Date of Pneumonia Vaccine: Nov 04, 2010 Date of Influenza Vaccine: Jul 12, 2011 Seasonal Allergies Seasonal Allergies: Yes Past Medical History Surgeries: Yes Abdominal, Appendectomy, Bowel Surgery, Section, Gallbladder, Hysterectomy, Nose, Orthopedic, 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 Respiratory: Yes Asthma Currently Using CPAP: No Currently Using BIPAP: No Cardiac: Yes Hypertension Neurological: No Reproductive Disorders: Yes (PCOS) 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, 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 Transmitted Disease: No HIV/AIDS: No Genitourinary: Yes Kidney Stones Gastrointestinal: Yes Abdominal Hernia, Gastroesophageal Reflux, Crohns Disease, Pancreatitis, Chronic Diarrhea, Ulcer Musculoskeletal: Yes (CHRONIC PAIN-WRISTS, LOWER BACK, HIPS, SI JOINT PAIN ) Back Injury, Chronic Back Pain Endocrine: No HEENT: Yes (GLASSES) Loss of Vision: Bilateral Hearing Impairment: Denies Cancer: No Psychosocial: Yes Anxiety Integumentary: No Blood Disorders: No Adverse Reaction/Blood Tranf: No (N/A) Family Medical History Family history: Diabetes mellitus 19 FATHER 19 MOTHER G8 SISTER No Pertinent Family Hx Physical Exam Vital Signs Vital Signs - First Documented 07/31/19 21:58 Temp 37.0 Pulse 77 Resp 18 B/P (MAP) 135/95 (108) O2 Delivery Room Air Capillary Refill : Height, Weight, BMI Height: 5'3.00" Weight: 192lbs. 0.0oz. 87.797271sa; 33.5 BMI Method:Stated General Appearance: WD/WN, no apparent distress HEENT: PERRL/EOMI, normal ENT inspection Neck: non-tender, full range of motion Respiratory: no respiratory distress, no accessory muscle use Gastrointestinal: normal bowel sounds, non tender Shoulder: limited ROM, pain Elbow/Forearm: normal inspection, non-tender Wrist: Yes normal inspection, Yes non-tender Hand: normal inspection, non-tender Neurologic/Psychiatric: alert, normal mood/affect Skin: normal color, warm/dry Progress/Results/Core Measures Results/Orders My Orders Orders - REAL MUÑOZ APRN Shoulder, Left, 3 Views (07/31/19 22:02) Vital Signs/I&O 07/31/19 21:58 Temp 37.0 Pulse 77 Resp 18 B/P (MAP) 135/95 (108) O2 Delivery Room Air Departure Communication (Admissions) pt given sling & Follow up instructions. Impression Primary Impression: subacute stress fracture distal clavicle left Disposition: 01 HOME, SELF-CARE Condition: Stable Departure-Patient Inst. Decision time for Depature: 22:05 Referrals: ROSANGELA ARMAS DO (PCP/Family) Primary Care Physician Patient Instructions: How to Use a Shoulder Sling Add. Discharge Instructions: 1. Follow-up with occupational health 2. Return to ER for any concerns All discharge instructions reviewed with patient and/or family. Voiced understanding. REAL MUÑOZ APRN Jul 31, 2019 22:05
[2019-07-31 22:30] VITALS: BP 130/90
--- NOTE | 2019-08-01 05:45 | Diagnostic Imaging Report ---
INDICATION: Chronic left shoulder pain COMPARISON: 06/14/2019 TECHNIQUE: 3 radiographs of the left shoulder dated 07/31/2019 FINDINGS: Mild degenerative changes of the acromioclavicular joint. No acute fracture or dislocation. No destructive osseous process. The glenohumeral relationship is within normal limits. Subacromial space is within normal limits. The visualized left lung is clear. IMPRESSION: No acute osseous abnormality with mild degenerative changes. Dictated by: Dictated on workstation # [id number]
== END 2019-07-31 22:33 | disposition home or self-care (01) ==
LOC: EDUNIT# 21:54 → ER 21:55
DX: S42.002A Fracture of unspecified part of left clavicle, initial encounter for closed fracture (principal); I10 Essential (primary) hypertension; J45.909 Unspecified asthma, uncomplicated; F41.9 Anxiety disorder, unspecified; K21.9 Gastro-esophageal reflux disease without esophagitis; Z87.442 Personal history of urinary calculi; Z90.49 Acquired absence of other specified parts of digestive tract; Z90.710 Acquired absence of both cervix and uterus; Z98.51 Tubal ligation status; Z88.0 Allergy status to penicillin; Z88.6 Allergy status to analgesic agent; Z88.2 Allergy status to sulfonamides; Z88.5 Allergy status to narcotic agent; Z79.52 Long term (current) use of systemic steroids; Z77.22 Contact with and (suspected) exposure to environmental tobacco smoke (acute) (chronic); X58.XXXA Exposure to other specified factors, initial encounter; Y92.59 Other trade areas as the place of occurrence of the external cause
CPT/HCPCS: 73030

== ENCOUNTER 2019-09-04 18:12 | Emergency (ER) | payer SELFPAY ==
[~2019-09-04] VITALS: Ht 160 cm; Wt 89.0 kg
--- NOTE | 2019-09-04 18:43 | ED Lower Extremity ---
General Chief Complaint: Lower Extremity Stated Complaint: L LEG PAIN SWOLLEN Nursing Triage Note: PT STATES SHE WAS JUMPING ON A TRAMPOLINE YESTERDAY AND LANDED WRONG HURTING HER LT KNEE. Nursing Sepsis Screen: No Definite Risk Source: patient, other Exam Limitations: no limitations History of Present Illness Date Seen by Provider: Sep 04, 2019 Time Seen by Provider: 18:20 Initial Comments Patient presents to ER by private conveyance with her significant other and chief complaint yesterday she was jumping on a trampoline and she feels that she hyper abducted her left knee away from midline. He had immediate pain and difficulty on walking. No pain in the ankle or hip. She has no history of injury to the knee but she does have a history of fracture of her right leg and is known to Dr. Del Angel for her shoulder surgery. She's having no numbness, tingling but she does have a limp and is bothering her brothers knee brace which has helped the pain. She can use Tylenol with minimal relief. Because of Crohn's she does not use NSAIDs and says tramadol so does not work for her. Allergies and Home Medications Allergies Coded Allergies: Penicillins (Verified Allergy, Mild, HIVES, 04/12/19) NSAIDS (Non-Steroidal Anti-Inflamma (Verified Allergy, Unknown, 04/12/19) UNABLE TO TAKE D/T CROHNS DISEASE Sulfa (Sulfonamide Antibiotics) (Verified Allergy, Unknown, 04/12/19) BREAK OUT IN A RED RASH WITH VOMITING ketorolac tromethamine (Unverified Allergy, Unknown, 04/12/19) UNABLE TO TAKE D/T CROHNS DISEASE naproxen (Unverified Allergy, Unknown, 04/12/19) UNABLE TO TAKE D/T CROHNS DISEASE tramadol (Verified Allergy, Unknown, 04/12/19) UNABLE TO TAKE D/T CROHNS DISEASE Home Medications Acetaminophen 500 Mg Tablet, 1,000 MG PO TID PRN for PAIN-MILD TO MODERATE, (Reported) Adalimumab 40 Mg/0.8 Ml Syringekit, 40 MG SQ Hewitt, (Reported) Albuterol Sulfate 6.7 Gm Hfa.aer.ad, 2 PUFF IH Q6H PRN for SHORTNESS OF BREATH Prescribed by: IGNACIO SHIELDS on 01/31/181933 Calcium Carbonate 600 Mg Tablet, 600 MG PO DAILY, (Reported) Cyclobenzaprine HCl 10 Mg Tablet, 10 MG PO Q8H Prescribed by: JOSE ASH on 06/14/191808 Hydrocodone Bit/Acetaminophen 1 Tab Tab, 1 TAB PO Q6H PRN for PAIN-MODERATE Prescribed by: CHELE ANGEL on 02/08/19 09 Methylprednisolone 4 Mg Tab.ds.pk, 4 MG PO UD Prescribed by: JOSE ASH on 06/14/191808 Omeprazole 40 Mg Capsule.dr, 40 MG PO DAILY, (Reported) Patient Home Medication List Home Medication List Reviewed: Yes Review of Systems Constitutional: No chills EENTM: No ear discharge, No hearing loss Respiratory: No cough, No hemoptysis Cardiovascular: No chest pain, No edema Gastrointestinal: No abdominal pain, No nausea Genitourinary: No discharge, No dysuria Musculoskeletal: see HPI, joint pain Past Jrmhxvo-Qskrwc-Tossxf Hx Patient Social History Alcohol Use: Denies Use Recreational Drug Use: No Smoking Status: Former Smoker Type Used: Cigarettes Former Smoker, Quit: May 29, 2017 2nd Hand Smoke Exposure: Yes Recent Foreign Travel: No Contact w/Someone Who Travel: No Recent Infectious Disease Expo: No Recent Hopitalizations: No Immunizations Up To Date Tetanus Booster (TDap): Unknown PED Vaccines UTD: Yes Date of Pneumonia Vaccine: Nov 04, 2010 Date of Influenza Vaccine: Jul 12, 2011 Seasonal Allergies Seasonal Allergies: Yes Past Medical History Surgeries: Yes Abdominal, Appendectomy, Bowel Surgery, Section, Gallbladder, Hysterectomy, Nose, Orthopedic, 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 Respiratory: Yes Asthma Currently Using CPAP: No Currently Using BIPAP: No Cardiac: Yes Hypertension Neurological: No : No Reproductive Disorders: Yes (PCOS) 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, 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 Sexually Transmitted Disease: No HIV/AIDS: No Genitourinary: Yes Kidney Stones Gastrointestinal: Yes Abdominal Hernia, Gastroesophageal Reflux, Crohns Disease, Pancreatitis, Chronic Diarrhea, Ulcer Musculoskeletal: Yes (CHRONIC PAIN-WRISTS, LOWER BACK, HIPS, SI JOINT PAIN ) Back Injury, Chronic Back Pain Endocrine: No HEENT: Yes (GLASSES) Loss of Vision: Bilateral Hearing Impairment: Denies Cancer: No Psychosocial: Yes Anxiety Integumentary: No Blood Disorders: No Adverse Reaction/Blood Tranf: No (N/A) Family Medical History Family history: Diabetes mellitus 19 FATHER 19 MOTHER G8 SISTER No Pertinent Family Hx Physical Exam Vital Signs Vital Signs - First Documented 09/04/19 18:26 Temp 36.8 Pulse 98 Resp 20 B/P (MAP) 144/97 (113) Pulse Ox 97 O2 Delivery Room Air Capillary Refill : Less Than 3 Seconds Height, Weight, BMI Height: 5'3.00" Weight: 192lbs. 0.0oz. 87.099691il; 34.00 BMI Method:Stated General Appearance: WD/WN, no apparent distress HEENT: PERRL/EOMI Neck: full range of motion, normal inspection Cardiovascular: normal peripheral pulses, regular rate, rhythm Respiratory: no respiratory distress, no accessory muscle use Hips: bilateral hip non-tender, bilateral hip normal inspection, bilateral hip normal range of motion, bilateral hip no evidence of injury Knees: right knee non-tender, right knee normal inspection, right knee normal range of motion, right knee no evidence of injury, right knee bone tenderness; left knee joint effusion (scant with non-ballotable patella), left knee pain (mild pain over the anterior tibial plateau but very tender patella to palpation.), left knee other (unable to obtain a meaningful examination of the left knee secondary to pain and limitation of movement. She only has about 20 of flexion without extreme pain.) Ankles: bilateral ankle non-tender, bilateral ankle normal inspection, bilateral ankle normal range of motion, bilateral ankle no evidence of injury Progress/Results/Core Measures Results/Orders My Orders Orders - DANI MAHMOOD Knee, Left, 3 Views (09/04/19 18:37) Hydrocodone/Apap 5/325 Tablet (Lortab 5 (09/04/19 19:00) Medications Given in ED Current Medications Medications Dose Ordered Sig/Dominga Route Start Time Stop Time Status Last Admin Dose Admin Acetaminophen/ Hydrocodone Bitart 1 tab ONCE ONCE PO 09/04/19 19:00 09/04/19 19:01 DC 09/04/19 19:00 1 TAB Vital Signs/I&O 09/04/19 09/04/19 18:26 19:00 Temp 36.8 36.8 Pulse 98 Resp 20 B/P (MAP) 144/97 (113) Pulse Ox 97 O2 Delivery Room Air Blood Pressure Mean: 113 POS Progress Progress Note : Time: 18:48 Progress Note Plain films of the left knee area here hydrocodone for pain. Ice, Boris wrap or knee brace. Follow-up with her orthopedic surgeon, Dr. Del Angel for outpatient knee exam in 7-10 days. Diagnostic Imaging Diagonstic Imaging: Xray Plain Films/CT/US/NM/MRI: knee (left) Comments NAME: YOSSI BLANDON MED REC#: [id number] PT STATUS: REG ER : 1980 PHYSICIAN: DANI MAHMOOD MD ADMIT DATE: 09/04/19/ER Draft POSDate of Exam:09/04/19 KNEE, LEFT, 3 VIEWS EXAM: KNEE, LEFT, 3 VIEWS INDICATION: Left knee pain. COMPARISON: None. FINDINGS: No fracture or malalignment. No suspicious osteoblastic or lytic lesions. Soft tissue shadows are unremarkable. IMPRESSION: Negative left knee radiographs. Dictated on workstation # [id number] Dict: 09/04/191899 Trans: 09/04/191900 [facility] [id number] Interpreted by: ELIJAH FELIPE MD Electronically signed by: Reviewed: Reviewed by Me Departure Impression Primary Impression: Fall involving trampoline as cause of accidental injury Additional Impression: Left knee injury Qualified Codes: S89.92XA - Unspecified injury of left lower leg, initial encounter Disposition: 01 HOME, SELF-CARE Condition: Stable Departure-Patient Inst. Decision time for Depature: 19:18 Referrals: ROSANGELA ARMAS DO (PCP/Family) Primary Care Physician DIONE DEL ANGEL MD Patient Instructions: Knee Pain (DC) Add. Discharge Instructions: Continue to wear the brace, an Boris bandage or a neoprene knee sleeve for compression. Ice pack 20 minutes on every 4 hours while awake for the first 2-3 days. Elevate your leg when possible to help reduce swelling for the first 2-3 days. Tylenol 1000 mg every 8 hours as needed for pain. Hydrocodone one tablet every 6 hours as needed for breakthrough pain for the first couple days. May return to work tomorrow but limited standing or walking and elevate leg when possible. All discharge instructions reviewed with patient and/or family. Voiced understa nding. Scripts Hydrocodone Bit/Acetaminophen (Hydrocodone/Acetaminophen 5/325mg Tablet) 1 Tab Tab 1 EACH PO Q4-6HR PRN for PAIN-MODERATE MDD 10 for 3 Days, #10 TAB Prov: DANI MAHMOOD 09/04/19 Work/School Note: Work Release Form Date Seen in the Emergency Department: Sep 04, 2019 Return to Work: Sep 05, 2019 Restrictions: Need Release from Doctor Other Restrictions Listed Below: Limit walking or standing. No lifting. Restrictions: Workup from a seated position with the left leg elevated when possible. Copy Copies To 1: DIONE DEL ANGEL MD, TITUS J Sep 04, 2019 18:43 POS
[2019-09-04] MEDS ORDERED: HYDROcodone/APAP 5 MG/325 MG (LORTAB) TAB PO ONE (19:00)
--- NOTE | 2019-09-04 19:01 | Diagnostic Imaging Report ---
EXAM: KNEE, LEFT, 3 VIEWS INDICATION: Left knee pain. COMPARISON: None. FINDINGS: No fracture or malalignment. No suspicious osteoblastic or lytic lesions. Soft tissue shadows are unremarkable. IMPRESSION: Negative left knee radiographs. Dictated by: Dictated on workstation # [id number]
[2019-09-04] MEDS ORDERED: ACHD5005 PO (19:21)
[2019-09-04 19:31] VITALS: BP 144/97
== END 2019-09-04 19:29 | disposition home or self-care (01) ==
LOC: EDUNIT# 18:12 → ER 18:14
DX: S89.92XA Unspecified injury of left lower leg, initial encounter (principal); J45.909 Unspecified asthma, uncomplicated; I10 Essential (primary) hypertension; F41.9 Anxiety disorder, unspecified; K21.9 Gastro-esophageal reflux disease without esophagitis; Z87.442 Personal history of urinary calculi; Z90.49 Acquired absence of other specified parts of digestive tract; Z90.710 Acquired absence of both cervix and uterus; Z98.51 Tubal ligation status; Z87.891 Personal history of nicotine dependence; Z77.22 Contact with and (suspected) exposure to environmental tobacco smoke (acute) (chronic); Z88.0 Allergy status to penicillin; Z88.2 Allergy status to sulfonamides; Z88.6 Allergy status to analgesic agent; Z88.5 Allergy status to narcotic agent; Z79.52 Long term (current) use of systemic steroids; W18.39XA Other fall on same level, initial encounter; Y93.44 Activity, trampolining
CPT/HCPCS: 73562

== ENCOUNTER 2020-01-05 08:25 | Outpatient (RCR) | payer OTHER ==
[~2020-01-05 08:25] MED LIST changes: +ACHYD1T PO; -HYDR-3820 PO; -OMEP20CA13 PO; +OMEP20CA18 PO; +OMEP40CA27 PO; -OMEP40CA36 PO
== END 2020-02-06 | disposition home or self-care (01) ==
PROVIDERS: ATTEND Orthopaedic Surgery Sports Medicine
DX: J45.909 Unspecified asthma, uncomplicated (principal); M25.512 Pain in left shoulder; Z87.81 Personal history of (healed) traumatic fracture; Z96.612 Presence of left artificial shoulder joint

== ENCOUNTER 2020-03-05 08:15 | Outpatient (RCR) | payer OTHER ==
[2020-04-09] MEDS ORDERED: CEPH500T PO (21:18)
[2020-04-09] MEDS ORDERED: PROM25TA14 PO (21:18)
[2020-04-09] MEDS ORDERED: HYDR-83 PO (23:06)
[2020-04-10] MEDS ORDERED: HYDR-83 PO (10:02)
[2020-05-01] MEDS ORDERED: OMG1KC PO (14:44)
[2020-05-01] MEDS ORDERED: MULT-1136 PO (14:44)
[2020-05-01] MEDS ORDERED: OMEP20TA7 PO (14:44)
[2020-05-03] MEDS ORDERED: HYDR-4342 PO (09:58)
[2020-05-03] MEDS ORDERED: OMG1KC PO (10:10)
[2020-05-03] MEDS ORDERED: MULT-1073 PO (10:10)
[2020-05-03] MEDS ORDERED: OMEP20TA7 PO (10:11)
== END 2020-05-08 15:46 | disposition home or self-care (01) ==
PROVIDERS: ATTEND Orthopaedic Surgery Sports Medicine
DX: J45.909 Unspecified asthma, uncomplicated (principal); M25.512 Pain in left shoulder; Z87.81 Personal history of (healed) traumatic fracture; Z96.612 Presence of left artificial shoulder joint

== ENCOUNTER 2020-04-09 20:17 | Emergency (ER) | payer BC, OTHER ==
[~2020-04-09] VITALS: Ht 160 cm; Wt 85.7 kg
[2020-04-09] MEDS ORDERED: ONDANSETRON 4 MG (ZOFRAN) ORAL DISSOLVE TAB SL STA (20:32)
--- NOTE | 2020-04-09 20:36 | ED Abdominal Pain ---
General Stated Complaint: NAUSEA/VOMITING, PAIN- HAS CROHNS History of Present Illness Date Seen by Provider: Apr 09, 2020 Time Seen by Provider: 20:25 Initial Comments 40-year-old female presents for upper abdominal pain related to her Crohn's disease. She had multiple tests done earlier this month at [facility] with the specialist that she sees. She has been stopped on all of her regular Crohn's medicine is only taking a steroid at this time. She reports vomiting 2 today. She's had extreme nausea and pain. She tried to eat at 1500 and vomited. She is hydrating but feels nauseated after drinking. Timing/Duration: 4-6 Hours Severity/Quality: Moderate (10) Location: Epigastric, Generalized Abdomen Radiation: No Radiation Associated Symptoms: No Back Pain, No Chest Pain, No Diaphoresis, No Fever/Chills, No Fatigue, No Headache, No Heartburn; Nausea/Vomiting; No Rash, No Shortness of Air, No Swelling/Mass in Abdomen, No Syncope, No Weakness Allergies and Home Medications Allergies Coded Allergies: Penicillins (Verified Allergy, Mild, HIVES, 04/12/19) NSAIDS (Non-Steroidal Anti-Inflamma (Verified Allergy, Unknown, 04/12/19) UNABLE TO TAKE D/T CROHNS DISEASE Sulfa (Sulfonamide Antibiotics) (Verified Allergy, Unknown, 04/12/19) BREAK OUT IN A RED RASH WITH VOMITING ketorolac tromethamine (Unverified Allergy, Unknown, 04/12/19) UNABLE TO TAKE D/T CROHNS DISEASE naproxen (Unverified Allergy, Unknown, 04/12/19) UNABLE TO TAKE D/T CROHNS DISEASE tramadol (Verified Allergy, Unknown, 04/12/19) UNABLE TO TAKE D/T CROHNS DISEASE Home Medications Acetaminophen 500 Mg Tablet, 1,000 MG PO TID PRN for PAIN-MILD TO MODERATE, (Reported) Adalimumab 40 Mg/0.8 Ml Syringekit, 40 MG SQ Hewitt, (Reported) Albuterol Sulfate 6.7 Gm Hfa.aer.ad, 2 PUFF IH Q6H PRN for SHORTNESS OF BREATH Prescribed by: IGNACIO SHIELDS on 01/31/181933 Calcium Carbonate 600 Mg Tablet, 600 MG PO DAILY, (Reported) Cephalexin 500 Mg Tablet, 500 MG PO TID Prescribed by: OPHELIA CORTEZ on 04/09/202117 Cyclobenzaprine HCl 10 Mg Tablet, 10 MG PO Q8H Prescribed by: JOSE ASH on 06/14/191808 Hydrocodone Bit/Acetaminophen 1 Tab Tab, 1 TAB PO Q6H PRN for PAIN-MODERATE Prescribed by: CHEEL ANGEL on 02/08/19 09 Hydrocodone Bit/Acetaminophen 1 Tab Tab, 1 EACH PO Q4-6HR PRN for PAIN-MODERATE Prescribed by: DANI MAHMOOD on 09/04/191920 Methylprednisolone 4 Mg Tab.ds.pk, 4 MG PO UD Prescribed by: JOSE ASH on 06/14/191808 Omeprazole 40 Mg Capsule.dr, 40 MG PO DAILY, (Reported) Promethazine HCl 25 Mg Tablet, 25 MG PO Q6H PRN for NAUSEA/VOMITING Prescribed by: OPHELIA CORTEZ on 04/09/202117 Patient Home Medication List Home Medication List Reviewed: Yes Review of Systems Review of Systems Constitutional: no symptoms reported, chills Gastrointestinal: See HPI, Abdominal Pain; Denies Constipated; Nausea, Poor Appetite, Vomiting All Other Systems Reviewed Negative Unless Noted: Yes Past Ytekwhp-Vptxat-Jqafuk Hx Past Med/Social Hx: Reviewed Nursing Past Med/Soc Hx Patient Social History Alcohol Beverage of Choice: Vodka Type Used: Cigarettes Former Smoker, Quit: May 29, 2017 2nd Hand Smoke Exposure: Yes Recent Foreign Travel: No Contact w/Someone Who Travel: No Recent Hopitalizations: No Immunizations Up To Date Tetanus Booster (TDap): Unknown PED Vaccines UTD: Yes Date of Pneumonia Vaccine: Nov 04, 2010 Date of Influenza Vaccine: Jul 12, 2011 Seasonal Allergies Seasonal Allergies: Yes Past Medical History Surgeries: Yes (CYST UNDER RT ARM) Abdominal, Appendectomy, Bowel Surgery, Section, Gallbladder, Hysterectomy, Nose, Orthopedic, 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 Respiratory: Yes Asthma Currently Using CPAP: No Currently Using BIPAP: No Cardiac: No Hypertension Neurological: No : No (Hysterectomy) Reproductive Disorders: Yes (PCOS) 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, 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 Sexually Transmitted Disease: No HIV/AIDS: No Genitourinary: Yes Kidney Stones Gastrointestinal: Yes Abdominal Hernia, Gastroesophageal Reflux, Crohns Disease, Pancreatitis, Chronic Diarrhea, Ulcer Musculoskeletal: Yes (CHRONIC PAIN-WRISTS, LOWER BACK, HIPS, SI JOINT PAIN ) Back Injury, Chronic Back Pain Endocrine: No HEENT: Yes (GLASSES) Loss of Vision: Bilateral Hearing Impairment: Denies Cancer: No Psychosocial: Yes Anxiety Integumentary: No Blood Disorders: No Adverse Reaction/Blood Tranf: No (N/A) Family Medical History Family history: Diabetes mellitus 19 FATHER 19 MOTHER G8 SISTER No Pertinent Family Hx Physical Exam Vital Signs Vital Signs - First Documented 04/09/20 20:23 Temp 36.3 Pulse 81 Resp 18 B/P (MAP) 134/81 (98) Pulse Ox 98 O2 Delivery Room Air Capillary Refill : Height/Weight/BMI Height: 5'3.00" Weight: 192lbs. 0.0oz. 87.453318gk; 34.00 BMI Method:Stated General Appearance: WD/WN, no apparent distress HEENT: normal ENT inspection, TMs normal, pharynx normal, other Neck: non-tender, full range of motion, supple, normal inspection Respiratory: chest non-tender, lungs clear, normal breath sounds Cardiovascular: normal peripheral pulses, regular rate, rhythm Gastrointestinal: normal bowel sounds, soft, distended; No rebound; tenderness (generalized but worse in epigastric area); No mass Neurologic/Psychiatric: no motor/sensory deficits, alert, normal mood/affect, oriented x 3 Skin: normal color, warm/dry Progress/Results/Core Measures Results/Orders Lab Results Laboratory Tests Test 04/09/20 20:30 04/09/20 20:33 Range/Units White Blood Count 9.3 4.3-11.0 10^3/uL Red Blood Count 4.29 L 4.35-5.85 10^6/uL Hemoglobin 13.4 11.5-16.0 G/DL Hematocrit 40 35-52 % Mean Corpuscular Volume 93 80-99 FL Mean Corpuscular Hemoglobin 31 25-34 PG Mean Corpuscular Hemoglobin Concent 34 32-36 G/DL Red Cell Distribution Width 12.5 10.0-14.5 % Platelet Count 387 130-400 10^3/uL Mean Platelet Volume 7.9 7.4-10.4 FL Neutrophils (%) (Auto) 60 42-75 % Lymphocytes (%) (Auto) 32 12-44 % Monocytes (%) (Auto) 6 0-12 % Eosinophils (%) (Auto) 2 0-10 % Basophils (%) (Auto) 0 0-10 % Neutrophils # (Auto) 5.6 1.8-7.8 X 10^3 Lymphocytes # (Auto) 3.0 1.0-4.0 X 10^3 Monocytes # (Auto) 0.6 0.0-1.0 X 10^3 Eosinophils # (Auto) 0.2 0.0-0.3 10^3/uL Basophils # (Auto) 0.0 0.0-0.1 10^3/uL Sodium Level 139 135-145 MMOL/L Potassium Level 3.7 3.6-5.0 MMOL/L Chloride Level 105 98-107 MMOL/L Carbon Dioxide Level 23 21-32 MMOL/L Anion Gap 11 5-14 MMOL/L Blood Urea Nitrogen 12 7-18 MG/DL Creatinine 0.82 0.60-1.30 MG/DL Estimat Glomerular Filtration Rate > 60 BUN/Creatinine Ratio 15 Glucose Level 121 H 70-105 MG/DL Calcium Level 9.5 8.5-10.1 MG/DL Corrected Calcium 9.3 8.5-10.1 MG/DL Total Bilirubin 0.5 0.1-1.0 MG/DL Aspartate Amino Transf (AST/SGOT) 16 5-34 U/L Alanine Aminotransferase (ALT/SGPT) 18 0-55 U/L Alkaline Phosphatase 75 40-136 U/L Total Protein 7.7 6.4-8.2 GM/DL Albumin 4.3 3.2-4.5 GM/DL Urine Color YELLOW Urine Clarity CLEAR Urine pH 5.5 5-9 Urine Specific [place] 1.025 H 1.016-1.022 Urine Protein NEGATIVE NEGATIVE Urine Glucose (UA) NEGATIVE NEGATIVE Urine Ketones NEGATIVE NEGATIVE Urine Nitrite POSITIVE H NEGATIVE Urine Bilirubin NEGATIVE NEGATIVE Urine Urobilinogen 0.2 < = 1.0 MG/DL Urine Leukocyte Esterase 2+ H NEGATIVE Urine RBC (Auto) NEGATIVE NEGATIVE Urine RBC NONE /HPF Urine WBC 10-25 H /HPF Urine Squamous Epithelial Cells 10-25 H /HPF Urine Crystals NONE /LPF Urine Bacteria MODERATE H /HPF Urine Casts NONE /LPF Urine Mucus NEGATIVE /LPF Urine Culture Indicated YES My Orders Orders - OPHELIA CORTEZ Cbc With Automated Diff (04/09/20 20:21) Comprehensive Metabolic Panel (04/09/20 20:21) Ua Culture If Indicated (04/09/20 20:21) Ondansetron Oral Dissolve Tab (Zofran (04/09/20 20:32) Urine Culture (04/09/20 20:33) Promethazine Tablet (Phenergan Tablet) (04/09/20 21:15) Rx-Cephalexin Capsule (Rx-Keflex Capsule (04/09/20 21:13) Medications Given in ED Current Medications Medications Dose Ordered Sig/Dominga Route Start Time Stop Time Status Last Admin Dose Admin Promethazine HCl 25 mg ONCE ONCE PO 04/09/20 21:15 04/09/20 21:16 DC 04/09/20 21:20 25 MG Vital Signs/I&O 04/09/20 20:23 Temp 36.3 Pulse 81 Resp 18 B/P (MAP) 134/81 (98) Pulse Ox 98 O2 Delivery Room Air Departure Impression Primary Impression: Exacerbation of Crohn's disease Qualified Codes: K50.90 - Crohn's disease, unspecified, without complications Additional Impressions: Abdominal pain Qualified Codes: R10.84 - Generalized abdominal pain UTI (urinary tract infection) Qualified Codes: N30.01 - Acute cystitis with hematuria Nausea and vomiting Qualified Codes: R11.2 - Nausea with vomiting, unspecified Disposition: HOME, SELF-CARE Condition: Improved Departure-Patient Inst. Decision time for Depature: 21:15 Referrals: ROSANGELA ARMAS,LOCAL PHYSICIAN (PCP) Primary Care Physician Patient Instructions: Crohn's Disease (DC), Urinary Tract Infection, Adult (DC) Add. Discharge Instructions: Clear liquid diet for the next 6-8 hours then bland diet as tolerated. Tylenol 1000 mg every 6-8 hours as needed for pain. Follow-up with Dr. Wen or your GI specialist as needed. Take antibiotics as directed for UTI. Increase water intake, 16 oz every 2 hours while awake Use Phenergan every 6-8 hours as needed for nausea and vomiting. Return to the emergency department for new, urgent health care needs. Scripts Promethazine HCl (Promethazine Tablet) 25 Mg Tablet 25 MG PO Q6H PRN for NAUSEA/VOMITING, #12 TAB 0 Refills Prov: DANA,OPHELIA ACCOUNTS SUPERVISOR 04/09/20 Cephalexin (Cephalexin) 500 Mg Tablet 500 MG PO TID, #15 TAB 0 Refills Prov: DANA,OPHELIA ACCOUNTS SUPERVISOR 04/09/20 OPHELIA CORTEZ Apr 09, 2020 20:36
[2020-04-09 20:39] LABS: BASOPHILS % (AUTO) 0 % (0-10); EOSINOPHILS # (AUTO) 0.2 10^3/uL (0.0-0.3); EOSINOPHILS % (AUTO) 2 % (0-10); HEMATOCRIT 40 % (35-52); HEMOGLOBIN 13.4 G/DL (11.5-16.0); LYMPHOCYTES % (AUTO) 32 % (12-44); MEAN CORPUSCULAR HEMOGLOBIN 31 PG (25-34); MEAN CORPUSCULAR HGB CONC 34 G/DL (32-36); MEAN CORPUSCULAR VOLUME 93 FL (80-99); MEAN PLATELET VOLUME 7.9 FL (7.4-10.4); MONOCYTES # (AUTO) 0.6 X 10^3 (0.0-1.0); MONOCYTES % (AUTO) 6 % (0-12); NEUTROPHILS # (AUTO) 5.6 X 10^3 (1.8-7.8); NEUTROPHILS % (AUTO) 60 % (42-75); PLATELET COUNT 387 10^3/uL (130-400); RED CELL DISTRIBUTION WIDTH 12.5 % (10.0-14.5); WHITE BLOOD COUNT 9.3 10^3/uL (4.3-11.0)
[2020-04-09 20:41] LABS: BILIRUBIN,URINE NEGATIVE (NEGATIVE); CLARITY,URINE CLEAR; COLOR,URINE YELLOW; GLUCOSE, URINE (UA) NEGATIVE (NEGATIVE); KETONES,URINE NEGATIVE (NEGATIVE); LEUKOCYTE ESTERASE ,URINE 2+ (NEGATIVE); NITRITE,URINE POSITIVE (NEGATIVE); PH,URINE 5.5 (5-9); PROTEIN,URINE NEGATIVE (NEGATIVE)
[2020-04-09 20:49] LABS: BACTERIA,URINE MODERATE /HPF
[2020-04-09 20:57] LABS: ALANINE AMINOTRANSFERASE 18 U/L (0-55); ALBUMIN 4.3 GM/DL (3.2-4.5); ALKALINE PHOSPHATASE 75 U/L (40-136); BILIRUBIN,TOTAL 0.5 MG/DL (0.1-1.0); BUN/CREATININE RATIO 15; CALCIUM 9.5 MG/DL (8.5-10.1); CARBON DIOXIDE 23 MMOL/L (21-32); CHLORIDE 105 MMOL/L (98-107); CREATININE SERUM 0.82 MG/DL (0.60-1.30); GFR ESTIMATED > 60; GLUCOSE 121 MG/DL (70-105); POTASSIUM 3.7 MMOL/L (3.6-5.0); SODIUM 139 MMOL/L (135-145); TOTAL PROTEIN 7.7 GM/DL (6.4-8.2)
[2020-04-09] MEDS ORDERED: RX-CEPHALEXIN (KEFLEX) 250 MG CAP PPK#4 PO STA (21:13)
[2020-04-09] MEDS ORDERED: PROMETHAZINE 25 MG (PHENERGAN) TAB PO ONE (21:15)
[2020-04-09] MEDS ORDERED: CEPH500T PO (21:18)
[2020-04-09] MEDS ORDERED: PROM25TA14 PO (21:18)
[2020-04-09 21:38] VITALS: BP 112/85
[2020-04-09] MEDS ORDERED: HYDR-83 PO (23:06)
[2020-04-10] MEDS ORDERED: HYDR-83 PO (10:02)
== END 2020-04-09 21:38 | disposition home or self-care (01) ==
LOC: EDUNIT# 20:17 → ER 20:19
DX: K50.90 Crohn's disease, unspecified, without complications (principal); N39.0 Urinary tract infection, site not specified; K21.9 Gastro-esophageal reflux disease without esophagitis; M25.531 Pain in right wrist; M25.532 Pain in left wrist; M54.5 Low back pain; M25.551 Pain in right hip; M25.552 Pain in left hip; G89.29 Other chronic pain; Z88.0 Allergy status to penicillin; Z88.6 Allergy status to analgesic agent; Z88.2 Allergy status to sulfonamides; Z88.5 Allergy status to narcotic agent; Z87.891 Personal history of nicotine dependence; Z90.710 Acquired absence of both cervix and uterus; Z98.51 Tubal ligation status
CPT/HCPCS: 36415; 80053; 81000; 85025; 87077; 87088; 87186

== ENCOUNTER 2020-05-01 05:48 | Outpatient (RCR) | payer BC ==
[~2020-05-01] VITALS: Ht 160 cm; Wt 85.7 kg
[~2020-05-01 05:48] MED LIST changes: +CEPH500T PO; +HYDR-83 PO
[2020-05-01] MEDS ORDERED: MULT-1136 PO (14:44)
[2020-05-01] MEDS ORDERED: OMEP20TA7 PO (14:44)
[2020-05-01] MEDS ORDERED: OMG1KC PO (14:44)
== END 2020-05-01 14:58 | disposition home or self-care (01) ==
LOC: PREOP 05:48
PROVIDERS: ATTEND Surgery
DX: Z01.812 Encounter for preprocedural laboratory examination (principal); K50.90 Crohn's disease, unspecified, without complications; Z20.828 Contact with and (suspected) exposure to other viral communicable diseases
CPT/HCPCS: 87635

== ENCOUNTER 2020-05-03 08:22 | Day surgery (SDC) | payer BC ==
[~2020-05-03] VITALS: Ht 160 cm; Wt 85.7 kg
[2020-05-03] VITALS (8 sets, daily range): BP systolic 99–121; BP diastolic 70–90
[~2020-05-03 08:22] MED LIST changes: +MULT-1136 PO; +OMEP20TA7 PO; +OMG1KC PO
[2020-05-03] MEDS ORDERED: LACTATED RINGERS 1,000 ML IV PRN (08:37)
[2020-05-03] MEDS ORDERED: CLINDAMYCIN 900 MG/50 ML IVPB 50 ML IV ONE (08:45)
[2020-05-03] MEDS ORDERED: CLINDAMYCIN 600 MG/50 ML IVPB 50 ML IV ONE (09:00)
[2020-05-03] MEDS ORDERED: WATER (STERILE) FOR INJECTION 20 ML ONE (09:11)
[2020-05-03] MEDS ORDERED: HEParin (CENTRAL IV FLUSH) 500 UNIT/5 ML SYR ONE (09:11)
[2020-05-03] MEDS ORDERED: BUP/EPI 0.5% 1:200,000 (SENSORCAINE) 30 ML VIAL ONE (09:12)
[2020-05-03] MEDS ORDERED: MIDAZOLAM 2 MG/2 ML (VERSED) VIAL ONE (09:12)
[2020-05-03] MEDS ORDERED: PROPOFOL INJECTION 50 ML IV ONE (09:12)
[2020-05-03] MEDS ORDERED: HYDR-4342 PO (09:58)
[2020-05-03] MEDS ORDERED: MULT-1073 PO (10:10)
[2020-05-03] MEDS ORDERED: OMG1KC PO (10:10)
[2020-05-03] MEDS ORDERED: OMEP20TA7 PO (10:11)
--- NOTE | 2020-05-03 11:11 | Diagnostic Imaging Report ---
INDICATION: Arthroscopy during port placement. Fluoroscopy was provided in the OR during port placement. 6 seconds of fluoroscopic time was utilized. Single image was obtained demonstrating a port overlying the SVC. IMPRESSION: Fluoroscopy for port placement. Dictated by: Dictated on workstation # [id number]
[2020-05-03] MEDS ORDERED: ONDANSETRON 4 MG/2 ML (SDV) Z0FRAN IVP PRN ×2 (11:15→11:30)
[2020-05-03] MEDS ORDERED: fentaNYL INJECTION 100 MCG/2 ML AMP IVP ONE (11:15)
--- NOTE | 2020-05-03 11:15 | Progress Note-Pre Operative ---
Pre-Operative Progress Note H&P Reviewed The H&P was reviewed, patient examined and no changes noted. Date Seen by Provider: May 03, 2020 Time Seen by Provider: : Date H&P Reviewed: May 03, 2020 Time H&P Reviewed: : Pre-Operative Diagnosis: active crohns with poor peripheral circulation. KANIKA PRASAD MD May 03, 2020 11:15
--- NOTE | 2020-05-03 11:15 | Anesthesia-General Post-Op ---
MAC Patient Condition Mental Status/LOC: Same as Preop Cardiovascular: Satisfactory Nausea/Vomiting: Absent Respiratory: Satisfactory Pain: Controlled Complications: Absent Post Op Complications Complications None Follow Up Care/Instructions Patient Instructions None needed. Anesthesiology Discharge Order Discharge Order Patient is doing well, no complaints, stable vital signs, no apparent adverse anesthesia problems. No complications reported per nursing. OMAR OLIVER CRNA May 03, 2020 11:15
--- NOTE | 2020-05-03 11:16 | Progress Note-Post Operative ---
Post-Operative Progess Note Surgeon (s)/Reactor Service Operator (s) Surgeon KANIKA PRASAD MD Reactor Service Operator: none Pre-Operative Diagnosis active crohns with poor peripheral circulation. Post-Operative Diagnosis same Procedure & Operative Findings Date of Procedure 05/03/20 Procedure Performed/Findings placement grsohong catheter with power port under flouroscopy. Anesthesia Type mac with local Estimated Blood Loss Estimated blood loss (mL): minimal Specimens/Packing Specimens Removed none KANIKA PRASAD MD May 03, 2020 11:16
[2020-05-03] MEDS ORDERED: morphine INJ 10 MG/ML 1ML (SYR OR VIAL) IVP PRN ×2 (11:30)
[2020-05-03] MEDS ORDERED: ACETAMINOPHEN 325 MG TABLET PO PRN (11:30)
[2020-05-03] MEDS ORDERED: HYDROcodone/APAP 5 MG/325 MG (LORTAB) TAB PO PRN (11:30)
--- NOTE | 2020-05-03 11:43 | Diagnostic Imaging Report ---
INDICATION: Groshong catheter placement. TIME OF EXAM: 11:27 AM Comparison is made with prior chest from 09/20/2018. FINDINGS: Heart size normal. Left subclavian Groshong catheter has tip overlying the SVC. No pneumothorax is identified. The lungs are clear. There is no effusion. IMPRESSION: Groshong catheter placement, as described. Dictated by: Dictated on workstation # [id number]
--- OUTSIDE RECORDS SUMMARY | 2020-05-03 12:30 | XMS REPORT | Encounter Summary ---
Author Author [facility] Organization [facility] Address Unknown Phone Unavailable Care Team Providers Care Venereal Disease Control Head Name Role Phone PCP Unavailable Encounter Details Care Team Description Date Type Department Niranjan Wong MD [address] [facility] [address] [place] [address] 07/27/2007 Hist-Telephone [facility] [address] [facility] [address] [place] [address] Social History Date Tobacco Use Types Packs/Day Years Used Never Assessed Sex Assigned at Date Recorded Female Industry Job Start Date Occupation Not on file Not on file Not on file Travel End Travel History Travel Start No recent travel history available. documented as of this encounter Miscellaneous Notes * Clinic Note - Niranjan Wong MD - 07/27/2007 4:23 PM CDT documented in this encounter Plan of Treatment Not on filedocumented as of this encounter Visit Diagnoses Not on filedocumented in this encounter
--- OUTSIDE RECORDS SUMMARY | 2020-05-03 12:30 | XMS REPORT | Clinical Summary ---
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 Active Problems Not on file Social History Date Tobacco Use Types Packs/Day Years Used Former Smoker Smokeless Tobacco: Never Used Drinks/Week oz/Week Comments Alcohol Use No Sex Assigned at Date Recorded Female 05/14/2019 7:42 AM CDT Industry Job Start Date Occupation Not on file Not on file Not on file Travel End Travel History Travel Start No recent travel history available. Last Filed Vital Signs Reading Time Taken Comments Vital Sign 122/91 09/10/2017 6:33 PM WINDOWS TECHNICAL SPECIALIST Blood Pressure 91 09/10/2017 6:33 PM WINDOWS TECHNICAL SPECIALIST Pulse 37 C (98.6 F) 09/10/2017 6:33 PM WINDOWS TECHNICAL SPECIALIST Temperature 16 09/10/2017 6:33 PM WINDOWS TECHNICAL SPECIALIST Respiratory Rate 98% 09/10/2017 6:33 PM WINDOWS TECHNICAL SPECIALIST Oxygen Saturation - - Inhaled Oxygen Concentration 74.8 kg (165 lb) 09/10/2017 6:33 PM WINDOWS TECHNICAL SPECIALIST Weight 160 cm (5' 3") 09/10/2017 6:33 PM WINDOWS TECHNICAL SPECIALIST Height 29.23 09/10/2017 6:33 PM WINDOWS TECHNICAL SPECIALIST Body Mass Index Plan of Treatment Health Maintenance Due Date Last Done Comments Td # 1980 Cervical Cancer Screening 1999 via Pap Smear Influenza Vaccine (#1) 2020 Pneumococcal Vaccine: Aged Out No longer eligib pam based on patient's age to Pediatrics (0 to 5 Years) complete this topic and At-Risk Patients (6 to 64 Years) Results Not on filefrom Last 3 Months Insurance Type Payer Benefit Subscriber ID Effective Phone Address Plan / Dates Group MEDICAID MANAGED CARE [facility] xxxxxxxxxxx 20 ([place] -Present [place] Advance Directives For more information, please contact: [phone] 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
--- OUTSIDE RECORDS SUMMARY | 2020-05-03 12:30 | XMS REPORT | Encounter Summary ---
Author Author [facility] Organization [facility] Address Unknown Phone Unavailable Care Team Providers Care Post Doctoral Researcher Name Role Phone PCP Unavailable Reason for Visit * Reason Comments Finger Injury Encounter Details Care Team Description Date Type Department Ady Esquivel DO [address] [place] [address] [phone] Sprain of right thumb, unspecified site of finger, initial encounter (Primary Dx) 09/10/[address] [id number] Social History Date Tobacco Use Types Packs/Day Years Used Former Smoker Smokeless Tobacco: Never Used Drinks/Week oz/Week Comments Alcohol Use No Sex Assigned at Date Recorded Female Industry Job Start Date Occupation Not on file Not on file Not on file Travel End Travel History Travel Start No recent travel history available. documented as of this encounter Last Filed Vital Signs Reading Time Taken Comments Vital Sign 122/91 09/10/2017 6:33 PM AGRICULTURE MECHANIC Blood Pressure 91 09/10/2017 6:33 PM AGRICULTURE MECHANIC Pulse 37 C (98.6 F) 09/10/2017 6:33 PM AGRICULTURE MECHANIC Temperature 16 09/10/2017 6:33 PM AGRICULTURE MECHANIC Respiratory Rate 98% 09/10/2017 6:33 PM AGRICULTURE MECHANIC Oxygen Saturation - - Inhaled Oxygen Concentration 74.8 kg (165 lb) 09/10/2017 6:33 PM AGRICULTURE MECHANIC Weight 160 cm (5' 3") 09/10/2017 6:33 PM AGRICULTURE MECHANIC Height 29.23 09/10/2017 6:33 PM AGRICULTURE MECHANIC Body Mass Index documented in this encounter Discharge Instructions * Instructions* Angelo Mason, RN - 09/10/2017 Obtain Right handed THumb Spica velcro wrsit splint at pharmacy and use per pack age instructions. Follow up with workman's comp, No use of R hand at work until cleared to resume by Workman's Comp. Return to the emergency department with q uestions or concerns. Hydrocodone Bitartrate, Acetaminophen Oral tablet What is this medicine? ACETAMINOPHEN; HYDROCODONE (a set a LIBERTY hanna fen; artis droe KOE done) is a pain re liever. It is used to treat moderate to severe pain. This medicine may be used for other purposes; ask your health care provider or phuong riley if you have questions. What should I tell my health care provider before I take this medicine? They need to know if you have any of these conditions: brain tumor Crohn's disease, inflammatory bowel disease, or ulcerative colitis drug abuse or addiction head injury heart or circulation problems if you often drink alcohol kidney disease or problems going to the bathroom liver disease lung disease, asthma, or breathing problems an unusual or allergic reaction to acetaminophen, hydrocodone, other opioid a nalgesics, other medicines, foods, dyes, or preservatives or trying to get breast-feeding How should I use this medicine? Take this medicine by mouth. Swallow it with a full glass of water. Follow the d irections on the prescription label. If the medicine upsets your stomach, take t he medicine with food or milk. Do not take more than you are told to take. Talk to your end user support specialist regarding the use of this medicine in children. This m edicine is not approved for use in children. Patients over 65 years may have a stronger reaction and need a smaller dose. Overdosage: If you think you have taken too much of this medicine contact a pois on control center or emergency room at once. NOTE: This medicine is only for you. Do not share this medicine with others. What if I miss a dose? If you miss a dose, take it as soon as you can. If it is almost time for your ne xt dose, take only that dose. Do not take double or extra doses. What may interact with this medicine? alcohol antihistamines isoniazid medicines for depression, anxiety, or psychotic disturbances medicines for sleep muscle relaxants naltrexone narcotic medicines (opiates) for pain phenobarbital ritonavir tramadol This list may not describe all possible interactions. Give your health care prov ider a list of all the medicines, herbs, non-prescription drugs, or dietary supp lements you use. Also tell them if you smoke, drink alcohol, or use illegal drug s. Some items may interact with your medicine. What should I watch for while using this medicine? Tell your doctor or health health care liaison if your pain does not go away, if i t gets worse, or if you have new or a different type of pain. You may develop to lerance to the medicine. Tolerance means that you will need a higher dose of the medicine for pain relief. Tolerance is normal and is expected if you take the m edicine for a long time. Do not suddenly stop taking your medicine because you may develop a severe react ion. Your body becomes used to the medicine. This does NOT mean you are addicted . Addiction is a behavior related to getting and using a drug for a non-medical reason. If you have pain, you have a medical reason to take pain medicine. Your doctor will tell you how much medicine to take. If your doctor wants you to stop the medicine, the dose will be slowly lowered over time to avoid any side effec ts. You may get drowsy or dizzy when you first start taking the medicine or change d oses. Do not drive, use machinery, or do anything that may be dangerous until yo u know how the medicine affects you. Stand or sit up slowly. There are different types of narcotic medicines (opiates) for pain. If you take more than one type at the same time, you may have more side effects. Give your [facility] care provider a list of all medicines you use. Your doctor will tell you h ow much medicine to take. Do not take more medicine than directed. Call emergenc y for help if you have problems breathing. The medicine will cause constipation. Try to have a bowel movement at least ever y 2 to 3 days. If you do not have a bowel movement for 3 days, call your doctor or health health care liaison. Too much acetaminophen can be very dangerous. Do not take Tylenol (acetaminophen ) or medicines that contain acetaminophen with this medicine. Many non-prescript ion medicines contain acetaminophen. Always read the labels carefully. What side effects may I notice from receiving this medicine? Side effects that you should report to your doctor or health health care liaison a s soon as possible: allergic reactions like skin rash, itching or hives, swelling of the face, li ps, or tongue breathing problems confusion feeling faint or lightheaded, falls stomach pain yellowing of the eyes or skin Side effects that usually do not require medical attention (report to your docto r or health health care liaison if they continue or are bothersome): nausea, vomiting stomach upset This list may not describe all possible side effects. Call your doctor for medic al advice about side effects. You may report side effects to FDA at 5-601-DMG-10 88. Where should I keep my medicine? Keep out of the reach of children. This medicine can be abused. Keep your medici ne in a safe place to protect it from theft. Do not share this medicine with any one. Selling or giving away this medicine is dangerous and against the law. Store at room temperature between 15 and 30 degrees C (59 and 86 degrees F). Pro tect from light. Keep container tightly closed. Throw away any unused medicine after the expiration date. Discard unused medicin e and used packaging carefully. Pets and children can be harmed if they find use d or lost packages. NOTE: This sheet is a summary. It may not cover all possible information. If you have questions about this medicine, talk to your doctor, pharmacist, or health care provider. NOTE:This sheet is a summary. It may not cover all possible information. If you have questions about this medicine, talk to your doctor, pharmacist, or health c are provider. Copyright 2016 Gold Standard * Attachments The following attachments cannot be sent through Care Everywhere.* HUSSEIN WRAP (BELARUSIAN) * SPRAIN, FINGER (BELARUSIAN) * Strains and Sprains, Self-Care for ([place]) * Strains and Sprains, Treating ([place]) documented in this encounter Medications at Time of Discharge Start Date End Date Medication Sig Dispensed Refills 09/10/2017 HYDROcodone-acetaminophen Take 1 tablet 11 tablet 0 (NORCO) 5-325 mg per by mouth tabletIndications: pain every 6 (six) hours as needed for pain. documented as of this encounter ED Notes * Ady Esquivel DO - 09/10/2017 7:33 PM AGRICULTURE MECHANIC 09/10/2017 [facility] History Chief Complaint Patient presents with Finger Injury R Thumb injury at work at 1500 cannot take NSAIDS, reports tipped over large car t at work and got thumb aught while trying to hold up cart. Pain in thmb, mcp j oint area, no wrist pain, no laceration. Distal msc intact, no snuff box tendern ess, no wrist pain. Pt denies all other complains. No current facility-administered medications for this encounter. Current Outpatient Prescriptions: HYDROcodone-acetaminophen (NORCO) 5-325 mg per tablet, Take 1 tablet by keyana th every 6 (six) hours as needed for pain., Disp: 11 tablet, Rfl: 0 Allergies Allergen Reactions Nsaids (Non-Steroidal Anti-Inflammatory Drug) Penicillins Toradol [Ketorolac] There is no immunization history on file for this patient. Past Medical History: Diagnosis Date Asthma Crohn disease (HCC) Past Surgical History: Procedure Laterality Date ABDOMINAL SURGERY 3 sbo resections and 1 large SECTION x2 CHOLECYSTECTOMY SEPTOPLASTY NASAL No family history on file. Social History Substance Use Topics Smoking status: Former Smoker Smokeless tobacco: Never Used Alcohol use No Review of Systems Constitutional: Negative. Respiratory: Negative. Cardiovascular: Negative. Gastrointestinal: Negative. Musculoskeletal: Positive for joint swelling. Skin: Negative. Neurological: Negative. Hematological: Negative. Psychiatric/Behavioral: Negative. All other systems reviewed and are negative. Physical Exam BP (!) 122/91 (BP Location: Left arm) | Pulse 91 | Temp 37 C (98.6 F) (Ora l) | Resp 16 | Ht 1.6 m (5' 3") | Wt 74.8 kg (165 lb) | SpO2 98% | BMI 29.2 3 kg/m Physical Exam Constitutional: She appears well-developed. Eyes: Conjunctivae are normal. Neck: Neck supple. Cardiovascular: Intact distal pulses. Pulmonary/Chest: Effort normal. Musculoskeletal: She exhibits tenderness. Right hand: She exhibits decreased range of motion and tenderness. She exhi bits no bony tenderness, normal two-point discrimination, normal capillary refil l, no deformity, no laceration and no swelling. Normal sensation noted. Decrease d sensation is not present in the ulnar distribution, is not present in the medi al distribution and is not present in the radial distribution. Hands: Nursing note and vitals reviewed. ED Course Procedures MDM Labs: No results found for this or any previous visit. Radiology: Xr Fingers Min 2 Views Right Result Date: 09/10/2017 Patient: MADY BLANDON Sex#: F # [id number] Bora#: [id number] Location: [facility] ED Procedure Requested: [id number] XR FINGERS MIN 2 VIE WS RIGHT Reason for Exam: thumb injury Exam Ordered: 09/10/20171838 Ex am Date/Time: 09/10/20171858 Begin exam date/time: 09/10/20171858 EX AMINATION: XR FINGERS MIN 2 VIEWS RIGHT CLINICAL INFORMATION: thumb injury, pain COMPARISON: None 3 views of the right hand and thumb are negative for fracture, focal bone, or raymond int abnormality. No retained radiopaque foreign material is seen. Treatments: Medications - No data to display Prescriptions: Discharge Medication List as of 09/10/2017 7:48 PM START taking these medications Details HYDROcodone-acetaminophen (NORCO) 5-325 mg per tablet Take 1 tablet by mouth javier ry 6 (six) hours as needed for pain., Starting Wed09/10/2017, Print, Indication s: Pain Vitals: Vitals: 09/10/171832 BP: (!) 122/91 Pulse: 91 Resp: 16 Temp: 37 C (98.6 F) SpO2: 98% Consultations: Discussed with Patient/Caregiver Diagnosis, Treatment, All completed studies. Patient re-evaluated and condition stable: Just Prior to departure from ED. Patient/caregiver that medical conditions are dynamic and can improve or worsen and follow-up is essential. Patient/caregiver was given the opportunity to ask questions about all treatment and results. All questions were answered completely. Patient seemed satisfied and to understand answers. Patient was given additional opportunity to ask que stions and seek direction. Patient was told to follow up with patient's physicia n in the near future for further testing and examination. Patient verbalized un derstanding. Return precautions were given. Discussed with patient follow up with ortho, hussein wrap and obtain velcro thumb sp ica splint at pharmacy vs ortholass splint. Pt will hand picker velcro splint. ED Course ED Clinical Impression 1. Sprain of right thumb, unspecified site of finger, initial encounter Ady Esquivel DO 09/11/17 0058 CULTURE MECHANIC * Elysia Preston RN - 09/10/2017 6:39 PM AGRICULTURE MECHANIC Ice applied to right thumb. Patient allergic to NSAIDs waiting to see doctor for alternative pain medication. CULTURE MECHANIC * Elysia Preston RN - 09/10/2017 6:29 PM AGRICULTURE MECHANIC Large cart fell on left thumb at work today. Ice placed on thumb on arrival CULTURE MECHANIC documented in this encounter Plan of Treatment Not on filedocumented as of this encounter Procedures Comments Procedure Name Priority Date/Time Associated Diag nosis XR FINGERS MIN 2 VIEWS STAT 09/10/2017 RIGHT 6:59 PM AGRICULTURE MECHANIC documented in this encounter Results * XR Fingers min 2 views right (09/10/2017 6:59 PM AGRICULTURE MECHANIC) Specimen Impressions Performed At 3 views of the right hand and thumb are negative for fracture, focal MCKESSON bone, or joint abnormality. No retain ed radiopaque foreign material is seen. Narrative Performed At Patient: MADY BLANDON Sex#: F # [id number] Bora#: [id number] Location: [facility] ED Procedure Requested: [id number] XR FINGE RS MIN 2 VIEWS RIGHT Reason for Exam: thumb injury Exam Ordered: 09/10/2017 1 839 Exam Date/Time: 09/10/2017 18 59 Begin exam date/time: 09/10/2017 18 59 EXAMINATION: XR FINGERS MIN 2 VIEWS RIG HT CLINICAL INFORMATION: thumb injury, melissa n COMPARISON: None Procedure Note Interface, Rad Results In - 09/10/2017 7:09 PM AGRICULTURE MECHANIC Patient: MADY BLANDON Sex#: F # [id number] Bora#: [id number] Location: [facility] ED Procedure Requested: [id number] XR FINGERS MIN 2 VIEWS RIGHT Reason for Exam: thumb injury Exam Ordered: 09/10/2017 1839 Exam Date/Time: 09/10/2017 1859 Begin exam date/time: 09/10/2017 185 EXAMINATION: XR FINGERS MIN 2 VIEWS RIGHT CLINICAL INFORMATION: thumb injury, pain COMPARISON: None IMPRESSION 3 views of the right hand and thumb are negative for fracture, focal bone, or joint abnormality. No retained radiopaque foreign material is seen. Performing Organization Address City/State/Zipcode Ph one Number TED documented in this encounter Visit Diagnoses Diagnosis Sprain of right thumb, unspecified site of finger, initial encounter documented in this encounter
--- OUTSIDE RECORDS SUMMARY | 2020-05-03 12:30 | XMS REPORT | Encounter Summary ---
Author Author [facility] Organization [facility] Address Unknown Phone Unavailable Care Team Providers Care Plant Anatomy Teacher Name Role Phone PCP Unavailable Encounter Details Care Team Description Date Type Department Niranjan Wong MD [address] [address] [place] [address] 08/30/2007 Hist-Transcript [facility] [address] [facility] [address] [place] [address] Social History Date Tobacco Use Types Packs/Day Years Used Never Assessed Sex Assigned at Date Recorded Female Industry Job Start Date Occupation Not on file Not on file Not on file Travel End Travel History Travel Start No recent travel history available. documented as of this encounter Progress Notes * Niranjan Wong MD - 09/02/2007 1:46 PM LABORATORY TECHNOLOGIST August 30, 2007 Honorable Trung Schrader Screening Tech [address] [place] [address] RE: Mady Yoon EVA ADDENDUM I have received a report from MRI of the right shoulder done July 29, 2007. Th e only finding noted was slight downsloping of the acromion, which could result in dynamic impingement. There was no evidence of rotator cuff pathology or izabela l pathology. Significant findings in relationship to her reported event were not identified on the MRI of the right shoulder. cc: [employer]zl[employer]Nby Nugbcdgkk-nj-Uex Jerry [employer] [address] [place] [address] [place] [address] RATORY TECHNOLOGIST documented in this encounter Plan of Treatment Not on filedocumented as of this encounter Visit Diagnoses Not on filedocumented in this encounter
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
--- OUTSIDE RECORDS SUMMARY | 2020-05-03 12:30 | XMS REPORT | Continuity of Care Document ---
[facility] Address Unknown Phone Unavailable Care Team Providers Care Grinder And Plater Name Role Phone [facility] Unavailable Unavailable Problems No Data Provided for This Section Medications No Data Provided for This Section Allergies, Adverse Reactions, Alerts Combined list of all allergies from all Department of Defense and Veterans Affairs facilities. It does not include entries that were removed or entered in error. Substance Category R eaction Severity Reaction type Status Date Reported Comments Source NAPROXEN (NAPROXEN) Drug allergy Unknown Drug allergy active 12/11/2007 MIKE Torres PENICILLINS Drug allergy Unknown Drug allergy active 12/11/2007 MIKE Carpio Immunizations No Data Provided for This Section Results No Data Provided for This Section Vital Signs No Data Provided for This Section Encounters No Data Provided for This Section Procedures No Data Provided for This Section Social History Combined list of available smoking, tobacco, and other social history on record at Department of Defense and/or Veterans Affairs facilities. The included entrie s comply with the patient's data sharing authorizations. Social History Type Response Date Comment Source This section is an empty social history section. DoD Assessment and Plan No Data Provided for This Section Plan of Care No Data Provided for This Section Family History No Data Provided for This Section Advance Directives No Data Provided for This Section Functional Status No Data Provided for This Section
--- OUTSIDE RECORDS SUMMARY | 2020-05-03 12:30 | XMS REPORT | Encounter Summary ---
Author Author [facility] Organization [facility] Address Unknown Phone Unavailable Care Team Providers Care User Experience Analyst Name Role Phone PCP Unavailable Encounter Details Care Team Description Date Type Department Niranjan Wong MD [address] [facility] [address] [place] [address] 07/29/2007 Hist-Transcript [facility] ion Encounter Specialists [address] [facility] [address] [place] [address] Social History Date Tobacco Use Types Packs/Day Years Used Never Assessed Sex Assigned at Date Recorded Female Industry Job Start Date Occupation Not on file Not on file Not on file Travel End Travel History Travel Start No recent travel history available. documented as of this encounter Procedure Notes * Niranjan Wong MD - 08/26/2007 4:00 PM CDT Associated Order(s): MRI PROCEDURE REPORT HISTORICAL MRI Right Shoulder Imported By: Tess Finney 08/26/2007 16:00:02 External Attachment: Type: Image Comment: External Document DEPILER OPERATOR documented in this encounter Plan of Treatment Not on filedocumented as of this encounter Procedures Comments Procedure Name Priority Date/Time Associated Diag nosis MRI PROCEDURE REPORT 07/29/2007 HISTORICAL 12:00 AM CDT documented in this encounter Results * MRI PROCEDURE REPORT HISTORICAL (07/29/2007 12:00 AM CDT) Specimen Procedure Note Niranjan Wong MD - 08/26/2007 4:00 PM CDT MRI Right Shoulder Imported By: Tess Finney 08/26/2007 16:00:02 External Attachment: Type: Image Comment: External Document documented in this encounter Visit Diagnoses Not on filedocumented in this encounter
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
--- OUTSIDE RECORDS SUMMARY | 2020-05-03 12:31 | XMS REPORT | Clinical Summary ---
Author Author [facility] Organization [facility] Address Unknown Phone Unavailable Care Team Providers Care Lever Tender Name Role Phone Barber Nguyen MD Unavailable Naveed Lockhart DO PCP Mychart, Generic Provider Unavailable Unavailable Mary Gomez Unavailable Unavailable Loreta Mcfadden APRN-SYSTEMS INTEGRATION ADVISOR Unavailable Source Comments Some departments are not documenting in the electronic medical record. If you d o not see the information that you expected, contact Release of Information in [facility] [employer] Management department at [phone] for further assistan ce in locating additional records.[facility] Allergies Comments Active Allergy Reactions Severity Noted Date Stomach bleeding Nsaids (Non-Steroidal SEE COMMENTS 06/22/2012 Anti-Inflammatory Drug) Penicillins 12/19/2008 Medications End Date Status Medication Sig Dispensed Refills Start Date Active HYDROcodone/acetaminophen Take 1 Tab by 0 (NORCO; VICODIN) 5-325 mg mouth every 6 tablet hours as needed. Active LORATADINE (CLARITIN PO) Take by 0 mouth. Active Sodium,Potassium,&Mag Take 2 354 mL 0 04/25 Sulfates 17.5-3.13-1.6 Bottles by 6 gram solrIndications: [...] 500 Take 2 Caps 240 Cap 3 0 mg cpER by mouth four 7 times daily. Active Mesalamine (PENTASA) 500 Take 2 240 capsule 4 1 mg cpER capsules by 7 mouth twice [...] User Tobacco Cessation: Ready to Quit: No; Co unseling Given: Yes Drinks/Week oz/Week Comments Alcohol Use [...] Health Maintenance Due Date Last Done Comments HIV SCREENING 1993 DTAP/TDAP VACCINES (1 - 1996 Tdap) PHYSICAL (COMPREHENSIVE) 1996 EXAM CERVICAL CANCER SCREENING 1999 BREAST CANCER SCREENING 2018 INFLUENZA VACCINE 07/25/2020 09/06/2006 HEPATITIS C SCREENING Completed 06/22/2012, 01/27/2012 Results Not on filefrom Last 3 Months Insurance Type Payer Benefit Subscriber ID Effective Phone Address Plan / Dates Group Medicaid [facility] MEDICAID [facility] xxxxxxxxxxx [id number] [place]) [place] [address] Advance Directives Patient Sales Data Analyst Explanation Type Date Recorded Advance 05/21/2016 6:22 AM Directive/DPOA
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
--- OUTSIDE RECORDS SUMMARY | 2020-05-03 12:31 | XMS REPORT ---
Author Author Mady Staton Doctor Organization [facility] Address Unknown Phone Unavailable Care Team Providers Care Flight Engineer Manager Name Role Phone Migration, Doctor Unavailable Unavailable PROBLEMS Type Condition ICD9-CM Code ORW82-HD Code Onset Dates Condition S tatus SNOMED Code Problem Injury, other and unspecified, knee, leg, ankle, and foot 959.7 Active 806214685 Problem Other drug allergy 995.27 Active 4 75366974 Problem Diarrhea 787.91 Active 99613380 Problem Acute pain due to trauma 338.11 Activ e 302784070 Problem Injury, other and unspecified, unspecified site 959.9 Active 391582124 Problem Vaginal burning N94.9 Active 2449 18068 Problem Nausea alone 787.02 Active 3485326 07 Problem Shortness of breath 786.05 Active 619243588 Problem Other general symptoms 780.99 Active 726159289 Problem Pain in joint, ankle and foot 719.47 Active 190306988 ALLERGIES No Information ENCOUNTERS Encounter Location Date Diagnosis [facility] [address] [id number] [address] [place] [address] 03 Nov, 2019 Fever R50.9 and Viral upper respiratory illness J06.9 [facility] [address] [id number] [address] [place] [address] Apr, Vaginal discharge N89.8 ; Va ginal burning N94.9 and Acute vaginitis N76.0 [facility] [address] [place] [address] Apr, Vaginal burning N94.9 and Ye ast infection B37.9 [facility] [address] [id number] [place] [id number] Oct, Dental examination Z01.20 [facility] [address] [id number] [place] [address] Jan, [facility] [address] [id number] [place] [address] Jan, [facility] [address] [facility] [id number] [place] [address] February, [facility] [address] [id number] [place] [address] February, [facility] [address] [id number] [place] [address] May, [facility] [address] [id number] [place] [address] May, [facility] [address] [id number] [place] [address] Apr, [facility] [address] [id number] [place] [address] Mar, [facility] [address] [id number] [place] [address] February, [facility] [address] [id number] [place] [address] February, [facility] [address] [id number] [place] [address] February, [facility] [address] [id number] [place] [address] Jan, [facility] [address] [id number] [place] [address] Jan, [facility] [address] [id number] [place] [address] Jan, [facility] [address] [id number] [place] [address] Jan, [facility] [address] [id number] [place] [address] Jan, [facility] [address] [id number] [place] [address] Dec, [facility] [address] [id number] [place] [address] Dec, [facility] [address] [facility] [id number] [place] [address] Dec, [facility] [address] [id number] [place] [address] Dec, [facility] [address] [id number] [place] [address] Nov, [facility] [address] [id number] [place] [address] Nov, [facility] [address] [facility] [id number] [place] [address] Nov, [facility] [address] [id number] [place] [address] Nov, [facility] [address] [id number] [place] [address] Nov, [facility] [address] [id number] [place] [address] Nov, [facility] [address] [id number] [place] [address] 14 Nov, 2011 [facility] [address] [id number] [place] [address] 10 Nov, 2011 [facility] [address] [id number] [place] [address] 08 Nov, 2011 [facility] [address] [id number] [place] [address] 07 Nov, 2011 [facility] [address] [place] [id number] 02 Nov, 2011 [facility] [address] [id number] [place] [address] Nov, [facility] [address] [id number] [place] [address] Oct, [facility] [address] [id number] [place] [address] Oct, [facility] [address] [id number] [place] [address] 13 Oct, 2011 [facility] [address] [id number] [place] [address] Oct, [facility] [address] [id number] [place] [address] Sep, [facility] [address] [id number] [place] [address] 14 Sep, 2011 [facility] [address] [id number] [place] [address] Sep, [facility] [address] [id number] [place] [address] Sep, [facility] [address] [id number] [place] [address] Aug, [facility] [address] [id number] [place] [address] Aug, [facility] [address] [id number] [place] [address] Aug, [facility] [address] [id number] [place] [address] Aug, [facility] [address] [id number] [place] [address] Jul, [facility] [address] [id number] [place] [address] Jul, [facility] [address] [id number] [place] [address] Jul, [facility] [address] [id number] [place] [address] Oct, [facility] [id number] [place] [address] Jul, [facility] [address] [id number] [place] [address] Jul, [facility] [address] [id number] [place] [address] Jul, [facility] [address] [id number] [place] [address] Jul, [facility] [address] [id number] [place] [address] Jul, [facility] [address] [id number] [place] [address] Dec, [facility] [address] [id number] [place] [address] Nov, [facility] [address] [id number] [place] [address] Sep, [facility] [address] [id number] [place] [address] Aug, [facility] [address] [id number] [place] [address] Jul, [facility] [address] [id number] [place] [address] Jun, IMMUNIZATIONS No Known Immunizations SOCIAL HISTORY Never Assessed REASON FOR VISIT PLAN OF CARE VITAL SIGNS MEDICATIONS No Known Medications RESULTS No Results PROCEDURES No Known procedures INSTRUCTIONS MEDICATIONS ADMINISTERED No Known Medications MEDICAL (GENERAL) HISTORY Type Description Date Medical History asthma Medical History crohns Medical History arthritis Medical History back trouble Surgical History hernia 2017 Surgical History crohn's 2015 Hospitalization History crohns disease
--- OUTSIDE RECORDS SUMMARY | 2020-05-03 12:31 | XMS REPORT ---
Author Author Mady MENCHACA [facility] Address [address] [place] [address] Care Team Providers Care Machine Ceramic Coater Name Role Phone YUDI MENCHACA Unavailable PROBLEMS Type Condition ICD9-CM Code AHC77-JC Code Onset Dates Condition S tatus SNOMED Code Problem Other drug allergy 995.27 Active 4 37120528 Problem Diarrhea 787.91 Active 29266032 Problem Nausea alone 787.02 Active 6842318 07 Problem Vaginal burning N94.9 Active 2449 16955 Problem Injury, other and unspecified, knee, leg, ankle, and foot 959.7 Active 417741575 Problem Asthma, unspecified asthma s everity, unspecified whether complicated, unspecified whether persistent J45.909 Active 899375839 Problem Injury, other and unspecified, unspecified site 959.9 Active 226816865 Problem Shortness of breath 786.05 Active 942100778 Problem Other general symptoms 780.99 Active 729960591 Problem Pain in joint, ankle and foot 719.47 Active 735568312 Problem Acute pain due to trauma 338.11 Activ e 292133009 ALLERGIES No Information ENCOUNTERS Encounter Location Date Diagnosis [facility] [id number] [place] [address] Dec, Other acute nonsuppurative otitis media, recurrence not specified, unspecified laterality H65.199 [facility] [address] [id number] [address] [place] [address] Nov, Fever R50.9 and Viral upper respiratory illness J06.9 [facility] [address] [id number] [address] [place] [address] Apr, Vaginal discharge N89.8 ; Va ginal burning N94.9 and Acute vaginitis N76.0 [facility] [address] [id number] [address] [place] [address] Apr, Vaginal burning N94.9 and Ye ast infection B37.9 [facility] [address] [id number] [address] [place] [id number] 14 Oct, 2015 Dental examination Z01.20 [facility] [address] [id number] [address] [place] [address] 14 Jan, 2015 [facility] [address] [id number] [address] [place] [address] Jan, [facility] [address] [id number] [address] [place] [address] February, [facility] [address] [id number] [address] [place] [address] February, [facility] [address] [id number] [address] [place] [address] May, [facility] [address] [id number] [address] [place] [address] May, [facility] [address] [id number] [address] [place] [address] Apr, [facility] [address] [id number] [address] [place] [address] Mar, [facility] [address] [id number] [address] [place] [address] February, [facility] [address] [id number] [address] [place] [address] February, [facility] [address] [id number] [address] [place] [address] February, [facility] [address] [id number] [address] [place] [address] Jan, [facility] [address] [id number] [address] [place] [address] Jan, [facility] [address] [id number] [address] [place] [address] 13 Jan, 2012 [facility] [address] [id number] [address] [place] [address], [place] [address] 10 Jan, 2012 [facility] [address] [id number] [address] [place] [address], [place] [address] 02 Jan, 2012 [facility] [address] [id number] [address] [place] [address], [place] [address] 20 Dec, 2011 [facility] [address] [id number] [address] [place] [address], [place] [address] 08 Dec, 2011 [facility] [address] [id number] [address] [place] [address], [place] [address] 05 Dec, 2011 [facility] [address] [id number] [address] [place] [address], [place] [address] Dec, [facility] [address] [id number] [address] [place] [address], [place] [address] 29 Nov, 2011 [facility] [address] [id number] [address] [place] [address], [place] [address] 27 Nov, 2011 [facility] [address] [id number] [address] [place] [address], [place] [address] 22 Nov, 2011 [facility] [address] [id number] [address] [place] [address], [place] [address] 22 Nov, 2011 [facility] [address] [id number] [address] [place] [address], [place] [address] 21 Nov, 2011 [facility] [address] [id number] [address] [place] [address], [place] [address] 20 Nov, 2011 [facility] [address] [id number] [address] [place] [address], [place] [address] 14 Nov, 2011 [facility] [address] [id number] [address] [place] [address], [place] [address] 10 Nov, 2011 [facility] [address] [id number] [address] [place] [address], [place] [address] 08 Nov, 2011 [facility] [address] [id number] [address] [place] [address], [place] [address] Nov, [facility] [address] [id number] [place] [id number] Nov, [facility] [address] [id number] [address] [place] [address], [place] [address] Nov, [facility] [address] [id number] [address] [place] [address], [place] [address] Oct, [facility] [address] [id number] [address] [place] [address], [place] [address] Oct, [facility] [address] [id number] [address] [place] [address], [place] [address] Oct, [facility] [address] [id number] [address] [place] [address], [place] [address] Oct, [facility] [address] [id number] [address] [place] [address], [place] [address] Sep, [facility] [address] [id number] [address] [place] [address], [place] [address] Sep, [facility] [address] [id number] [address] [place] [address] Sep, [facility] [address] [id number] [address] [place] [address] Sep, [facility] [address] [id number] [address] [place] [address] Aug, [facility] [address] [id number] [address] [place] [address] Aug, [facility] [address] [id number] [address] [place] [address] Aug, [facility] [address] [id number] [address] [place] [address] Aug, [facility] [address] [id number] [address] [place] [address] Jul, [facility] [address] [id number] [address] [place] [address] Jul, [facility] [address] [id number] [address] [place] [address] Jul, [facility] [address] [id number] [address] [place] [address] Oct, [facility] [address] [id number] [address] [place] [address] Jul, [facility] [address] [id number] [address] [place] [address] Jul, [facility] [address] [id number] [address] [place] [address] Jul, [facility] [address] [id number] [address] [place] [address] Jul, [facility] [address] [id number] [address] [place] [address] Jul, [facility] [address] [id number] [address] [place] [address] Dec, [facility] [address] [id number] [address] [place] [address] Nov, [facility] [address] [id number] [address] [place] [address] Sep, [facility] [address] [id number] [address] [place] [address] Aug, [facility] [address] [id number] [address] [place] [address] Jul, [facility] [address] [id number] [address] [place] [address] Jun, IMMUNIZATIONS No Known Immunizations SOCIAL HISTORY Never Assessed REASON FOR VISIT PLAN OF CARE VITAL SIGNS MEDICATIONS Unknown Medications RESULTS No Results PROCEDURES No Known procedures INSTRUCTIONS MEDICATIONS ADMINISTERED No Known Medications MEDICAL (GENERAL) HISTORY Type Description Date Medical History asthma Medical History crohns Medical History arthritis Medical History back trouble Surgical History hernia 2017 Surgical History crohn's 2015 Surgical History left shoulder bones repair Hospitalization History crohns disease
--- OUTSIDE RECORDS SUMMARY | 2020-05-03 12:31 | XMS REPORT | Encounter Summary ---
Author Author [facility] Organization [facility] Address Unknown Phone Unavailable Care Team Providers Care [place] Man Name Role Phone PCP Unavailable Encounter Details Care Team Description Date Type Department Moises Cerna MD [address] [address] [phone] 04/05/1998 [facility] al Encounter [address] [place] [address] Social History Date Tobacco Use Types Packs/Day [...]
--- OUTSIDE RECORDS SUMMARY | 2020-05-03 12:31 | XMS REPORT ---
Author Author Mady King Organization [facility] Address [address] [place] [address] Care Team Providers Care Residence Director Name Role Phone Fernando GUERA Unavailable PROBLEMS Type Condition ICD9-CM Code RCA30-TI Code Onset Dates Condition S tatus SNOMED Code Problem Other drug allergy 995.27 Active 4 75516382 Problem Diarrhea 787.91 Active 80401957 Problem Nausea alone 787.02 Active 5241319 07 Problem Vaginal burning N94.9 Active 2449 99576 Problem Injury, other and unspecified, knee, leg, ankle, and foot 959.7 Active 757634117 Problem Asthma, unspecified asthma s everity, unspecified whether complicated, unspecified whether persistent J45.909 Active 363274685 Problem Injury, other and unspecified, unspecified site 959.9 Active 515522878 Problem Shortness of breath 786.05 Active 813762558 Problem Other general symptoms 780.99 Active 834913445 Problem Pain in joint, ankle and foot 719.47 Active 491895063 Problem Acute pain due to trauma 338.11 Activ e [id number] ALLERGIES No Information ENCOUNTERS Encounter Location Date Diagnosis [facility] [id number] [place] [id number] Dec, Other acute nonsuppurative otitis media, recurrence not specified, unspecified laterality H65.199 [facility] [address] [facility] [id number] [address] [place] [id number] Nov, Fever R50.9 and Viral upper respiratory illness J06.9 [facility] [address] [place] [id number] [place] [phone] Apr, Vaginal discharge N89.8 ; Va ginal burning N94.9 and Acute vaginitis N76.0 [facility] [address] [id number] [address] [place] [id number] 20 Apr, 2019 Vaginal burning N94.9 and Ye ast infection B37.9 [facility] [address] [id number] [address] [place] [id number] 14 Oct, 2015 Dental examination Z01.20 [facility] [address] [id number] [address] [place] [id number] 14 Jan, 2015 [facility] [address] [id number] [address] [place] [phone] Jan, [facility] [address] [id number] [address] [place] [id number] February, [facility] [address] [id number] [address] [place] [phone] February, [facility] [address] [id number] [address] [place] [phone] May, [facility] [address] [id number] [address] [place] [phone] May, [facility] [address] [id number] [address] [place] [phone] Apr, [facility] [address] [id number] [address] [place] [phone] Mar, [facility] [address] [id number] [address] [place] [phone] February, [facility] [address] [id number] [address] [place] [id number] February, [facility] [address] [id number] [address] [place] [id number] February, [facility] [address] [id number] [address] [place] [phone] Jan, [facility] [address] [id number] [address] [place] [phone] Jan, [facility] [address] [id number] [address] [place] [address], [place] [id number] 13 Jan, 2012 [facility] [address] [id number] [address] [place] [address], [place] [id number] 10 Jan, 2012 [facility] [address] [id number] [address] [place] [address], [place] [address] 02 Jan, 2012 [facility] [address] [id number] [address] [place] [address], [place] [id number] 20 Dec, 2011 [facility] [address] [id number] [address] [place] [address], [place] [id number] 08 Dec, 2011 [facility] [address] [id number] [address] [place] [address], [place] [id number] 05 Dec, 2011 [facility] [address] [id number] [address] [place] [address], [place] [id number] 02 Dec, 2011 [facility] [address] [id number] [address] [place] [address], [place] [id number] 29 Nov, 2011 [facility] [address] [id number] [address] [place] [address], [place] [id number] 27 Nov, 2011 [facility] [address] [id number] [address] [place] [address], [place] [id number] 22 Nov, 2011 [facility] [address] [id number] [address] [place] [address], [place] [address] 22 Nov, 2011 [facility] [address] [id number] [address] [place] [address], [place] [id number] 21 Nov, 2011 [facility] [address] [id number] [address] [place] [address], [place] [address] 20 Nov, 2011 [facility] [address] [id number] [address] [place] [address], [place] [address] 14 Nov, 2011 [facility] [address] [id number] [address] [place] [address], [place] [address] 10 Nov, 2011 [facility] [address] [id number] [address] [place] [phone] 08 Nov, 2011 [facility] [address] [id number] [address] [place] [address], [place] [address] Nov, [facility] [address] [id number] [place] [id number] Nov, [facility] [address] [id number] [address] [place] [address], [place] [address] Nov, [facility] [address] [id number] [address] [place] [address], [place] [address] Oct, [facility] [address] [id number] [address] [place] [address], [place] [address] Oct, [facility] [address] [id number] [address] [place] [address], [place] [address] Oct, [facility] [address] [id number] [address] [place] [address], [place] [address] Oct, [facility] [address] [id number] [address] [place] [address], [place] [address] Sep, [facility] [address] [id number] [address] [place] [address], [place] [address] Sep, [facility] [address] [id number] [address] [place] [address], [place] [address] Sep, [facility] [address] [id number] [address] [place] [address], [place] [address] Sep, [facility] [address] [id number] [address] [place] [address], [place] [address] Aug, [facility] [address] [id number] [address] [place] [address], [place] [address] Aug, [facility] [address] [id number] [address] [place] [address], [place] [address] 14 Aug, 2011 [facility] [address] [id number] [address] [place] [address], [place] [address] Aug, [facility] [address] [id number] [address] [place] [id number] Jul, [facility] [address] [id number] [address] [place] [phone] Jul, [facility] [address] [id number] [address] [place] [id number] Jul, [facility] [address] [id number] [address] [place] [phone] Oct, [facility] [address] [id number] [address] [place] [id number] Jul, [facility] [address] [id number] [address] [place] [id number] Jul, [facility] [address] [id number] [address] [place] [phone] Jul, [facility] [address] [id number] [address] [place] [id number] Jul, [facility] [address] [id number] [address] [place] [id number] Jul, [facility] [address] [id number] [address] [place] [phone] Dec, [facility] [address] [id number] [address] [place] [id number] Nov, [facility] [address] [id number] [address] [place] [phone] Sep, [facility] [address] [id number] [address] [place] [id number] Aug, [facility] [address] [id number] [address] [place] [id number] Jul, [facility] [address] [id number] [address] [place] [id number] Jun, IMMUNIZATIONS No Known Immunizations SOCIAL HISTORY Never Assessed REASON FOR VISIT PLAN OF CARE VITAL SIGNS MEDICATIONS Unknown Medications RESULTS No Results PROCEDURES No Known procedures INSTRUCTIONS MEDICATIONS ADMINISTERED No Known Medications MEDICAL (GENERAL) HISTORY Type Description Date Medical History asthma Medical History crohns Medical History arthritis Medical History back trouble Surgical History hernia 2016 Surgical History crohn's 2015 Surgical History left shoulder bones repair Hospitalization History crohns disease
--- OUTSIDE RECORDS SUMMARY | 2020-05-03 12:36 | XMS REPORT | Continuity of Care Document ---
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 HYPERTENSION 08/23/2018 ENEIDA SANTIAGOIS Ot J45.909 UNSPECIFIED ASTHMA, UNCOMPLICATED 08/23/2018 PAMELA SANTHOSH Ot K21.9 GASTRO-ESOPHAGEAL REFLUX DISEASE WITHOUT 08/23/2018 ENEIDA SANTIAGOIS Ot M25.572 PAIN IN LEFT ANKLE AND JOINTS OF LEFT FO 08/23/2018 ENEIDA SANTIAGOIS Ot S93.402A SPRAIN OF UNSPECIFIED LIGAMENT OF LEFT A 08/23/2018 ENEIDA SANTIAGOIS Ot Z79.51 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 (CURRENT) USE OF INHALED STERO 08/23/2018 PAMELA SANTHOSH Ot Z79.52 [facility] (CURRENT) USE OF SYSTEMIC STER 08/23/2018 PAMELA SANTHOSH Ot Z87.19 PERSONAL HISTORY OF OTHER DISEASES OF TH 08/23/2018 ENEIDA SANTIAGOIS Ot Z87.442 PERSONAL HISTORY OF URINARY CALCULI 08/23/2018 ENEIDA SANTIAGOIS Ot Z87.448 PERSONAL HISTORY OF OTHER DISEASES OF UR 08/23/2018 SANTHOSH SANTIAGO Ot Z88.0 ALLERGY STATUS TO PENICILLIN 08/23/2018 SANTHOSH SANTIAGO Ot Z88.2 ALLERGY STATUS TO SULFONAMIDES STATUS 08/23/2018 SANTHOSH SANTIAGO Ot Z88.4 ALLERGY STATUS TO ANESTHETIC AGENT STATU 08/23/2018 SANTHOSH SANTIAGO Ot Z88.6 ALLERGY STATUS TO ANALGESIC AGENT STATUS 08/23/2018 SANTHOSH SANTIAGO Ot Z88.8 ALLERGY STATUS TO OTH DRUG/MEDS/BIOL SUB 08/23/2018 SANTHOSH SANTIAGO Ot 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 BOTH CERVIX AND UTER 08/23/2018 SANTHOSH SANTIAGO Ot Z98.51 TUBAL LIGATION STATUS 08/23/2018 SANTHOSH SANTIAGO Ot Z98.890 OTHER SPECIFIED POSTPROCEDURAL STATES 09/20/2018 OPHELIA CORTEZP Ot F41.9 ANXIETY DISORDER, UNSPECIFIED 09/20/2018 OPHELIA CORTEZP Ot I10 ESSENTIAL (PRIMARY) HYPERTENSION 09/20/2018 OPHELIA CORTEZP Ot J45.909 UNSPECIFIED ASTHMA, UNCOMPLICATED 09/20/2018 OPHELIA CORTEZP Ot K21.9 GASTRO-ESOPHAGEAL REFLUX DISEASE WITHOUT 09/20/2018 OPHELIA CORTEZP Ot M25.512 PAIN IN LEFT SHOULDER 09/20/2018 OPHELIA CORTEZP Ot R07.89 OTHER CHEST PAIN 09/20/2018 OPHELIA CORTEZP Ot X50.0XXA OVEREXERTION FROM STRENUOUS MOVEMENT OR 09/20/2018 OPHELIA CORTEZ FRETTED INSTRUMENT INSPECTOR Ot Y92.59 [facility] TRADE AREAS PLACE 09/20/2018 OPHELIA CORTEZP Ot Y99.0 CIVILIAN ACTIVITY DONE FOR INCOME OR PAY 09/20/2018 OPHELIA CORTEZP Ot Z79.51 FPC (CURRENT) USE OF INHALED STERO 09/20/2018 OPHELIA CORTEZP Ot Z79.52 FPC (CURRENT) USE OF SYSTEMIC STER 09/20/2018 OPHELIA CORTEZP Ot Z87.19 PERSONAL HISTORY OF OTHER DISEASES OF TH 09/20/2018 OPHELIA CORTEZP Ot Z87.442 PERSONAL HISTORY OF URINARY CALCULI 09/20/2018 OPHELIA CORTEZP Ot Z87.448 PERSONAL HISTORY OF OTHER DISEASES OF UR 09/20/2018 OPHELIA CORTEZP Ot Z87.891 PERSONAL HISTORY OF NICOTINE DEPENDENCE 09/20/2018 DANAOPHELIA Sorensen Ot Z88.0 ALLERGY STATUS TO PENICILLIN 09/20/2018 DANAOPHELIA SorensenP Ot Z88.2 ALLERGY STATUS TO SULFONAMIDES STATUS 09/20/2018 DANAOPHELIA SorensenP Ot Z88.4 ALLERGY STATUS TO ANESTHETIC AGENT STATU 09/20/2018 DANAOPHELIA Sorensen Ot Z88.6 ALLERGY STATUS TO ANALGESIC AGENT STATUS 09/20/2018 DANAOPHELIA Sorensen Ot Z88.8 ALLERGY STATUS TO [facility] DRUG/MEDS/BIOL SUB 09/20/2018 DANAOPHELIA SorensenP Ot Z90.49 ACQUIRED ABSENCE OF OTHER SPECIFIED PART 09/20/2018 DANAOPHELIA SorensenP Ot 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 BOTH CERVIX AND UTER 09/20/2018 OPHELIA CORTEZP Ot Z98.51 TUBAL LIGATION STATUS 09/20/2018 OPHELIA CORTEZP Ot Z98.890 OTHER SPECIFIED POSTPROCEDURAL STATES 09/22/2018 OPHELIA CORTEZP Ot F41.9 ANXIETY DISORDER, UNSPECIFIED 09/22/2018 OPHELIA CORTEZP Ot I10 ESSENTIAL (PRIMARY) HYPERTENSION 09/22/2018 OPHELIA CORTEZP Ot J45.909 UNSPECIFIED ASTHMA, UNCOMPLICATED 09/22/2018 OPHELIA CORTEZP Ot K21.9 GASTRO-ESOPHAGEAL REFLUX DISEASE WITHOUT 09/22/2018 OPHELIA CORTEZP Ot M25.512 PAIN IN LEFT SHOULDER 09/22/2018 OPHELIA CORTEZP Ot R07.89 OTHER CHEST PAIN 09/22/2018 OPHELIA CORTEZP Ot X50.0XXA OVEREXERTION FROM STRENUOUS MOVEMENT OR 09/22/2018 OPHELIA CORTEZ FRETTED INSTRUMENT INSPECTOR Ot Y92.59 [facility] TRADE AREAS PLACE 09/22/2018 OPHELIA CORTEZP Ot Y99.0 CIVILIAN ACTIVITY DONE FOR INCOME OR PAY 09/22/2018 OPHELIA CORTEZP Ot Z79.51 FPC (CURRENT) USE OF INHALED STERO 09/22/2018 OPHELIA CORTEZP Ot Z79.52 PRESS 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 (CURRENT) USE OF SYSTEMIC STER 09/22/2018 OPHELIA CORTEZP Ot Z87.19 PERSONAL HISTORY OF OTHER DISEASES OF TH 09/22/2018 OPHELIA CORTEZP Ot Z87.442 PERSONAL HISTORY OF URINARY CALCULI 09/22/2018 OPHELIA CORTEZ Ot Z87.448 PERSONAL HISTORY OF OTHER DISEASES OF UR 09/22/2018 OPHELIA CORTEZ Ot Z87.891 PERSONAL HISTORY OF NICOTINE DEPENDENCE 09/22/2018 OPHELIA CORTEZP Ot Z88.0 ALLERGY STATUS TO PENICILLIN 09/22/2018 OPHELIA CORTEZP Ot Z88.2 ALLERGY STATUS TO SULFONAMIDES STATUS 09/22/2018 OPHELIA CORTEZP Ot Z88.4 ALLERGY STATUS TO ANESTHETIC AGENT STATU 09/22/2018 OPHELIA CORTEZP Ot Z88.6 ALLERGY STATUS TO ANALGESIC AGENT STATUS 09/22/2018 OPHELIA CORTEZP Ot Z88.8 ALLERGY STATUS TO OTH DRUG/MEDS/BIOL SUB 09/22/2018 OPHELIA CORTEZP Ot Z90.49 ACQUIRED ABSENCE OF OTHER SPECIFIED PART 09/22/2018 OPHELIA CORTEZP Ot 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 BOTH CERVIX AND UTER 09/22/2018 OPHELIA CORTEZP Ot Z98.51 TUBAL LIGATION STATUS 09/22/2018 OPHELIA CORTEZP Ot Z98.890 OTHER SPECIFIED POSTPROCEDURAL STATES 10/27/2018 Elissayda,Usman Final K50.9 0 Crohn''s disease, unspecified, without complications 10/27/2018 Dextera,Usman Final K76.0 Fatty (change of) liver, not elsewhere classified 10/27/2018 Yuliya,Usman Reason R10. 84 Generalized abdominal pain 10/27/2018 Elissayda,, Usman Final R19.7 Diarrhea, unspecified 10/27/2018 Vayda,Usman Final R50.9 Fever, unspecified 10/27/2018 Elissayda,, Usman Final Z79.8 99 Other group home (current) drug therapy 10/27/2018 Elissayda,, Usman Final Z87.8 91 Personal history of nicotine dependence 10/27/2018 Dextera,Usman Final Z88.0 Allergy status to penicillin 10/27/2018 Yuliya,Usman Final Z90.4 9 Acquired absence of other specified parts of digestive tract 11/15/2018 PÉREZ BARRIENTOS, ALMA Morfin Ot F17.210 NICOTINE DEPENDENCE, CIGARETTES, UNCOMPL 11/15/2018 PÉREZ BARRIENTOS, ALMA Morfin Ot F41.9 ANXIETY DISORDER, UNSPECIFIED 11/15/2018 ALMA ORTEZ MD Ot H66.91 OTITIS MEDIA, UNSPECIFIED, RIGHT EAR 11/15/2018 ALMA ORTEZ MD, Ot H92.01 OTALGIA, RIGHT EAR 11/15/2018 ALMA ORTEZ MD, Ot I10 ESSENTIAL (PRIMARY) HYPERTENSION 11/15/2018 ALMA ORTEZ MD Ot J02.9 ACUTE PHARYNGITIS, UNSPECIFIED 11/15/2018 ALMA ORTEZ MD, Ot J45.909 UNSPECIFIED ASTHMA, UNCOMPLICATED 11/15/2018 ALMA ORTEZ MD, Ot K21.9 GASTRO-ESOPHAGEAL REFLUX DISEASE WITHOUT 11/15/2018 ALMA ORTEZ MD, Ot Z79.51 PRESS 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 (CURRENT) USE OF INHALED STERO 11/15/2018 ALMA ORTEZ MD Ot Z87.19 PERSONAL HISTORY OF OTHER DISEASES OF TH 11/15/2018 ALMA ORTEZ MD Ot Z87.442 PERSONAL HISTORY OF URINARY CALCULI 11/15/2018 ALMA ORTEZ MD, Ot Z87.448 PERSONAL HISTORY OF OTHER DISEASES OF UR 11/15/2018 ALMA ORTEZ MD Ot Z88.0 ALLERGY STATUS TO PENICILLIN 11/15/2018 ALMA ORTEZ MD, Ot Z88.2 ALLERGY STATUS TO SULFONAMIDES STATUS 11/15/2018 ALMA ORTEZ MD Ot Z88.4 ALLERGY STATUS TO ANESTHETIC AGENT STATU 11/15/2018 ALMA ORTEZ MD Ot Z88.6 ALLERGY STATUS TO ANALGESIC AGENT STATUS 11/15/2018 ALMA ORTEZ MD Ot Z88.8 ALLERGY STATUS TO OTH DRUG/MEDS/BIOL SUB 11/15/2018 ALMA ORTEZ MD, Ot Z90.49 ACQUIRED ABSENCE OF OTHER SPECIFIED PART 11/15/2018 ALMA ORTEZ MD, Ot 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 BOTH CERVIX AND UTER 11/15/2018 ALMA ORTEZ MD, Ot Z98.51 TUBAL LIGATION STATUS 11/15/2018 ALMA ORTEZ MD, Ot Z98.890 OTHER SPECIFIED POSTPROCEDURAL STATES 11/17/2018 ALMA ORETZ MD Ot F17.210 NICOTINE DEPENDENCE, CIGARETTES, UNCOMPL 11/17/2018 ALMA ORTEZ MD, Ot F41.9 ANXIETY DISORDER, UNSPECIFIED 11/17/2018 ALMA ORTEZ MD Ot H66.91 OTITIS MEDIA, UNSPECIFIED, RIGHT EAR 11/17/2018 ALMA ORTEZ MD, Ot H92.01 OTALGIA, RIGHT EAR 11/17/2018 ALMA ORTEZ MD, Ot I10 ESSENTIAL (PRIMARY) HYPERTENSION 11/17/2018 ALMA ORTEZ MD, Ot J02.9 ACUTE PHARYNGITIS, UNSPECIFIED 11/17/2018 ALMA ORTEZ MD, Ot J45.909 UNSPECIFIED ASTHMA, UNCOMPLICATED 11/17/2018 ALMA ORTEZ MD, Ot K21.9 GASTRO-ESOPHAGEAL REFLUX DISEASE WITHOUT 11/17/2018 ALMA ORTEZ MD Ot 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.51 PRESS 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[employer] (CURRENT) USE OF INHALED STERO 11/17/2018 ALMA ORTEZ MD, Ot Z87.19 PERSONAL HISTORY OF OTHER DISEASES OF TH 11/17/2018 ALMA ORTEZ MD Ot Z87.442 PERSONAL HISTORY OF URINARY CALCULI 11/17/2018 ALMA ORTEZ MD, Ot Z87.448 PERSONAL HISTORY OF OTHER DISEASES OF UR 11/17/2018 ALMA ORTEZ MD Ot Z88.0 ALLERGY STATUS TO PENICILLIN 11/17/2018 ALMA ORTEZ MD Ot Z88.2 ALLERGY STATUS TO SULFONAMIDES STATUS 11/17/2018 ALMA ORTEZ MD Ot Z88.4 ALLERGY STATUS TO ANESTHETIC AGENT STATU 11/17/2018 ALMA ORTEZ MD, Ot Z88.6 ALLERGY STATUS TO ANALGESIC AGENT STATUS 11/17/2018 ALMA ORTEZ MD, Ot Z88.8 ALLERGY STATUS TO OTH DRUG/MEDS/BIOL SUB 11/17/2018 ALMA ORTEZ MD Ot Z90.49 ACQUIRED ABSENCE OF OTHER SPECIFIED PART 11/17/2018 PÉREZ BARRIENTOS, ALMA Morfin Ot 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 BOTH CERVIX AND UTER 11/17/2018 PÉREZ BARRIENTOS, ALMA Morfin Ot Z98.51 TUBAL LIGATION STATUS 11/17/2018 PÉREZ BARRIENTOS, ALMA Morfin Ot Z98.890 OTHER SPECIFIED POSTPROCEDURAL STATES 12/05/2018 REAL MUÑOZ APRN Ot F41 .9 ANXIETY DISORDER, UNSPECIFIED 12/05/2018 REAL MUÑOZ APRN Ot I10 ESSENTIAL (PRIMARY) HYPERTENSION 12/05/2018 REAL MUÑOZ APRN Ot J45.909 UNSPECIFIED ASTHMA, UNCOMPLICATED 12/05/2018 REAL MUÑOZ APRN Ot K21 .9 GASTRO-ESOPHAGEAL REFLUX DISEASE WITHOUT 12/05/2018 REAL MUÑOZ APRN Ot N39 .0 URINARY TRACT INFECTION, SITE NOT SPECIF 12/05/2018 REAL MUÑOZ APRN Ot R10.33 PERIUMBILICAL PAIN 12/05/2018 REAL MUÑOZ APRN Ot 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.51 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 (CURRENT) USE OF INHALED STERO 12/05/2018 REAL MUÑOZ APRN Ot Z87.19 PERSONAL HISTORY OF OTHER DISEASES OF TH 12/05/2018 REAL MUÑOZ APRN Ot Z87.442 PERSONAL HISTORY OF URINARY CALCULI 12/05/2018 REAL MUÑOZ APRN Ot Z87.448 PERSONAL HISTORY OF OTHER DISEASES OF UR 12/05/2018 REAL MUÑOZ APRN Ot Z88 .0 ALLERGY STATUS TO PENICILLIN 12/05/2018 REAL MUÑOZ APRN Ot Z88 .1 ALLERGY STATUS TO OTHER ANTIBIOTIC AGENT 12/05/2018 REAL MUÑOZ APRN Ot Z88 .2 ALLERGY STATUS TO SULFONAMIDES STATUS 12/05/2018 REAL MUÑOZ APRN Ot Z88 .4 ALLERGY STATUS TO ANESTHETIC AGENT STATU 12/05/2018 REAL MUÑOZ APRN Ot Z88 .6 ALLERGY STATUS TO ANALGESIC AGENT STATUS 12/05/2018 REAL MUÑOZ APRN Ot Z88 .8 ALLERGY STATUS TO OTH DRUG/MEDS/BIOL SUB 12/05/2018 REAL MUÑOZ APRN Ot Z90.49 ACQUIRED ABSENCE OF OTHER SPECIFIED PART 12/05/2018 REAL MUÑOZ APRN Ot 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 BOTH CERVIX AND UTER 12/05/2018 REAL MUÑOZ APRN Ot Z98.51 TUBAL LIGATION STATUS 12/05/2018 REAL MUÑOZ APRN Ot Z98.890 OTHER SPECIFIED POSTPROCEDURAL STATES 12/05/2018 MIHIR LEE JOSE Kinsey Ot F41.9 ANXIETY DISORDER, UNSPECIFIED 12/05/2018 MIHIR JOSE K Ot I10 ESSENTIAL (PRIMARY) HYPERTENSION 12/05/2018 MIHIR JOSE Kinsey Ot J45.909 UNSPECIFIED ASTHMA, UNCOMPLICATED 12/05/2018 MIHIR JOSE K Ot K21.9 GASTRO-ESOPHAGEAL REFLUX DISEASE WITHOUT 12/05/2018 MIHIR LEEJOSE Ot N39.0 URINARY TRACT INFECTION, SITE NOT SPECIF 12/05/2018 MIHIR JOSE Ot R10.9 UNSPECIFIED ABDOMINAL PAIN 12/05/2018 MIHIR JOSE Ot Z79.51 [facility] (CURRENT) USE OF INHALED STERO 12/05/2018 MIHIR JOSE Ot Z87.19 PERSONAL HISTORY OF OTHER DISEASES OF TH 12/05/2018 MIHIR DOJOSE Ot Z87.442 PERSONAL HISTORY OF URINARY CALCULI 12/05/2018 MIHIR DOJOSE Ot Z87.448 PERSONAL HISTORY OF OTHER DISEASES OF UR 12/05/2018 JOSE ASH DO Ot Z87.891 PERSONAL HISTORY OF NICOTINE DEPENDENCE 12/05/2018 MIHIR JOSE LEE Ot Z88.0 ALLERGY STATUS TO PENICILLIN 12/05/2018 MIHIR JOSE Ot Z88.2 ALLERGY STATUS TO SULFONAMIDES STATUS 12/05/2018 MIHIR JOSE LEE Ot Z88.4 ALLERGY STATUS TO ANESTHETIC AGENT STATU 12/05/2018 MIHIR JOSE LEE Ot Z88.6 ALLERGY STATUS TO ANALGESIC AGENT STATUS 12/05/2018 MIHIR JOSE Ot Z88.8 ALLERGY STATUS TO OTH DRUG/MEDS/BIOL SUB 12/05/2018 MIHIR JOSE LEE Ot Z90.49 ACQUIRED ABSENCE OF OTHER SPECIFIED PART 12/05/2018 MIHIR JOSE LEE Ot 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 BOTH CERVIX AND UTER 12/05/2018 MIHIR JOSE LEE Ot Z98.51 TUBAL LIGATION STATUS 12/05/2018 MIHIR JOSE LEE Ot Z98.890 OTHER SPECIFIED POSTPROCEDURAL STATES 12/06/2018 REAL MUÑOZ APRN Ot F41 .9 ANXIETY DISORDER, UNSPECIFIED 12/06/2018 REAL MUÑOZ APRN Ot I10 ESSENTIAL (PRIMARY) HYPERTENSION 12/06/2018 REAL MUÑOZ APRN Ot J45.909 UNSPECIFIED ASTHMA, UNCOMPLICATED 12/06/2018 REAL MUÑOZ APRN Ot K21 .9 GASTRO-ESOPHAGEAL REFLUX DISEASE WITHOUT 12/06/2018 REAL MUÑOZ APRN Ot N39 .0 URINARY TRACT INFECTION, SITE NOT SPECIF 12/06/2018 REAL MUÑOZ APRN Ot R10.33 PERIUMBILICAL PAIN 12/06/2018 REAL MUÑOZ APRN Ot Z79.51 PRESS 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 (CURRENT) USE OF INHALED STERO 12/06/2018 REAL MUÑOZ APRN Ot Z87.19 PERSONAL HISTORY OF OTHER DISEASES OF TH 12/06/2018 REAL MUÑOZ APRN Ot Z87.442 PERSONAL HISTORY OF URINARY CALCULI 12/06/2018 REAL MUÑOZ APRN Ot Z87.448 PERSONAL HISTORY OF OTHER DISEASES OF UR 12/06/2018 REAL MUÑOZ APRN Ot Z88 .0 ALLERGY STATUS TO PENICILLIN 12/06/2018 REAL MUÑOZ APRN Ot Z88 .1 ALLERGY STATUS TO OTHER ANTIBIOTIC AGENT 12/06/2018 REAL MUÑOZ APRN Ot Z88 .2 ALLERGY STATUS TO SULFONAMIDES STATUS 12/06/2018 REAL MUÑOZ APRN Ot Z88 .4 ALLERGY STATUS TO ANESTHETIC AGENT STATU 12/06/2018 REAL MUÑOZ APRN Ot Z88 .6 ALLERGY STATUS TO ANALGESIC AGENT STATUS 12/06/2018 REAL MUÑOZ APRN Ot Z88 .8 ALLERGY STATUS TO OTH DRUG/MEDS/BIOL SUB 12/06/2018 REAL MUÑOZ APRN Ot Z90.49 ACQUIRED ABSENCE OF OTHER SPECIFIED PART 12/06/2018 REAL MUÑOZ APRN Ot 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 BOTH CERVIX AND UTER 12/06/2018 REAL MUÑOZ APRN Ot Z98.51 TUBAL LIGATION STATUS 12/06/2018 REAL MUÑOZ APRN Ot Z98.890 OTHER SPECIFIED POSTPROCEDURAL STATES 12/07/2018 MIHIR JOSE LEE Ot F41.9 ANXIETY DISORDER, UNSPECIFIED 12/07/2018 MIHIR LEE JOSE Euceda Ot I10 ESSENTIAL (PRIMARY) HYPERTENSION 12/07/2018 JOSE ASH DO Ot J45.909 UNSPECIFIED ASTHMA, UNCOMPLICATED 12/07/2018 MIHIR JOSE Euceda Ot K21.9 GASTRO-ESOPHAGEAL REFLUX DISEASE WITHOUT 12/07/2018 MIHIR JOSE Euceda Ot N39.0 URINARY TRACT INFECTION, SITE NOT SPECIF 12/07/2018 MIHIR LEE JOSE Kinsey Ot R10.9 UNSPECIFIED ABDOMINAL PAIN 12/07/2018 MIHIR JOSE Kinsey Ot Z79.51 FPC (CURRENT) USE OF INHALED STERO 12/07/2018 MIHIR LEE JOSE Kinsey Ot Z87.19 PERSONAL HISTORY OF OTHER DISEASES OF TH 12/07/2018 MIHIR LEE JOSE Kinsey Ot Z87.442 PERSONAL HISTORY OF URINARY CALCULI 12/07/2018 MIHIR JOSE Kinsey Ot Z87.448 PERSONAL HISTORY OF OTHER DISEASES OF UR 12/07/2018 MIHIR JOSE Kinsey Ot Z87.891 PERSONAL HISTORY OF NICOTINE DEPENDENCE 12/07/2018 MIHIR JOSE Kinsey Ot Z88.0 ALLERGY STATUS TO PENICILLIN 12/07/2018 MIHIR JOSE Kinsey Ot Z88.2 ALLERGY STATUS TO SULFONAMIDES STATUS 12/07/2018 MIHIR JOSE Kinsey Ot Z88.4 ALLERGY STATUS TO ANESTHETIC AGENT STATU 12/07/2018 MIHIR JOSE Kinsey Ot Z88.6 ALLERGY STATUS TO ANALGESIC AGENT STATUS 12/07/2018 MIHIR JOSE Kinsey Ot Z88.8 ALLERGY STATUS TO OTH DRUG/MEDS/BIOL SUB 12/07/2018 [place] JOSE Kinsey Ot Z90.49 ACQUIRED ABSENCE OF OTHER SPECIFIED PART 12/07/2018 MIHIR JOSE K Ot 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 BOTH CERVIX AND UTER 12/07/2018 MIHIR JOSE Ot Z98.51 TUBAL LIGATION STATUS 12/07/2018 MIHIR JOSE Kinsey Ot Z98.890 OTHER SPECIFIED POSTPROCEDURAL STATES 12/08/2018 TREASURELENDER ROSANGELA LEE Ot R10.9 UNSPECIFIED ABDOMINAL PAIN 12/08/2018 TREASURELENROSANGELA DALTON DO Ot Z90.49 ACQUIRED ABSENCE OF OTHER SPECIFIED PART 12/14/2018 ROSANGELA ARMAS DO Ot R10.9 UNSPECIFIED ABDOMINAL PAIN 12/14/2018 ROSANGELA ARMAS DO Ot Z90.49 ACQUIRED ABSENCE OF OTHER SPECIFIED PART 12/22/2018 ROSANGELA ARMAS DO Ot R10.9 UNSPECIFIED ABDOMINAL PAIN 12/22/2018 ROSANGELA ARMAS DO Ot Z90.49 ACQUIRED ABSENCE OF OTHER SPECIFIED PART 02/06/2019 CHELE ANGEL DO Ot Z01.8 18 ENCOUNTER FOR OTHER PREPROCEDURAL EXAMIN 02/08/2019 CHELE ANGEL DO Ot Z01.8 18 ENCOUNTER FOR OTHER PREPROCEDURAL EXAMIN 02/08/2019 JAYSON ANGEL DOIC B Ot E28.2 POLYCYSTIC OVARIAN SYNDROME 02/08/2019 CHELE ANGEL DO B Ot F17.2 10 NICOTINE DEPENDENCE, CIGARETTES, UNCOMPL 02/08/2019 CHELE ANGEL DO B Ot F41.9 ANXIETY DISORDER, UNSPECIFIED 02/08/2019 CHELE ANGEL DO Ot G89.2 9 OTHER CHRONIC PAIN 02/08/2019 CHELE ANGEL DO Ot J45.9 09 UNSPECIFIED ASTHMA, UNCOMPLICATED 02/08/2019 CHELE ANGEL DO B Ot K50.9 0 CROHN'S DISEASE, UNSPECIFIED, WITHOUT CO 02/08/2019 CHELE ANGEL DO B Ot L73.2 HIDRADENITIS SUPPURATIVA 02/08/2019 JAYSON ANGEL DOIC B Ot M54.9 DORSALGIA, UNSPECIFIED 02/08/2019 CHELE ANGEL DO B Ot Z11.2 ENCOUNTER FOR SCREENING FOR OTHER BACTER 02/08/2019 CHELE ANGEL DO Ot Z79.8 99 OTHER [facility] (CURRENT) DRUG THERAPY 02/08/2019 CHELE ANGEL DO B Ot Z87.4 42 PERSONAL HISTORY OF URINARY CALCULI 02/09/2019 CHELE ANGEL DO B Ot E28.2 POLYCYSTIC OVARIAN SYNDROME 02/09/2019 CHELE ANGEL DO B Ot F17.2 10 NICOTINE DEPENDENCE, CIGARETTES, UNCOMPL 02/09/2019 CHELE ANGEL DO B Ot F41.9 ANXIETY DISORDER, UNSPECIFIED 02/09/2019 CHELE ANGEL DO B Ot G89.2 9 OTHER CHRONIC PAIN 02/09/2019 CHELE ANGEL DO Ot J45.9 09 UNSPECIFIED ASTHMA, UNCOMPLICATED 02/09/2019 STANLEY LEE CHELE B Ot K50.9 0 CROHN'S DISEASE, UNSPECIFIED, WITHOUT CO 02/09/2019 STANLEY LEE CHELE B Ot L73.2 HIDRADENITIS SUPPURATIVA 02/09/2019 STANLEY LEE CHELE B Ot M54.9 DORSALGIA, UNSPECIFIED 02/09/2019 TAHIRMADDY DO CHELE B Ot Z11.2 ENCOUNTER FOR SCREENING FOR OTHER BACTER 02/09/2019 TAHIRMADDY JAYSON LEEIC B Ot Z79.8 99 OTHER 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 (CURRENT) DRUG THERAPY 02/09/2019 TAHIRMADDY DO CHELE B Ot Z87.4 42 PERSONAL HISTORY OF URINARY CALCULI 02/12/2019 JAYSON ANGEL DOIC B Ot Z01.8 18 ENCOUNTER FOR OTHER PREPROCEDURAL EXAMIN 02/13/2019 JAYSON ANGEL DOIC B Ot E28.2 POLYCYSTIC OVARIAN SYNDROME 02/13/2019 JAYSON ANGEL DOIC B Ot F17.2 10 NICOTINE DEPENDENCE, CIGARETTES, UNCOMPL 02/13/2019 JAYSON ANGEL DOIC B Ot F41.9 ANXIETY DISORDER, UNSPECIFIED 02/13/2019 TAHIRMADDY JAYSON LEEIC B Ot G89.2 9 OTHER CHRONIC PAIN 02/13/2019 JAYSON ANGEL DOIC B Ot J45.9 09 UNSPECIFIED ASTHMA, UNCOMPLICATED 02/13/2019 TAHIRMADDY DO CHELE B Ot K50.9 0 CROHN'S DISEASE, UNSPECIFIED, WITHOUT CO 02/13/2019 TAHIRMADDY DO CHELE B Ot L73.2 HIDRADENITIS SUPPURATIVA 02/13/2019 JAYSON ANGEL DOIC B Ot M54.9 DORSALGIA, UNSPECIFIED 02/13/2019 TAHIRMADDY JAYSON LEEIC B Ot Z11.2 ENCOUNTER FOR SCREENING FOR OTHER BACTER 02/13/2019 TAHIRMADDY JAYSON LEEIC B Ot Z79.8 99 OTHER [facility] (CURRENT) DRUG THERAPY 02/13/2019 JAYSON ANGEL DOIC B Ot Z87.4 42 PERSONAL HISTORY OF URINARY CALCULI 04/12/2019 ALEJO BARRIENTOS, JODI J Ot 719.05 JOINT EFFUSION-PELVIS 04/12/2019 ALEJO BARRIENTOS, JODI J Ot 719.45 JOINT PAIN-PELVIS 04/12/2019 ALEJO BARRIENTOS, JODI J Ot 793.7 NOSP (ABN) FINDINGS ON RADIOLOGICAL OT 04/12/2019 DREA DO, HEIDI Ot V72.84 EXAM PRE-OPERATIVE NOS 04/12/2019 SYEDA TIJERINA MD Ot V58.6 9 OTH MED,LT,CURRENT USE 04/12/2019 SYEDA TIJERINA MD Ot V58.8 3 ENCOUNTER FOR THERAPEUTIC DRUG MONITORIN 04/12/2019 GELLENDER DO, ROSANGELA A Ot K50.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, UNSPECIFIED, WITHOUT CO 04/12/2019 GELLENDER DO, ROSANGELA A Ot R53.83 OTHER FATIGUE 04/12/2019 GELLENDER DO, ROSANGELA A Ot K92.1 MELENA 04/12/2019 GELLENDER DO, ROSANGELA A Ot R10.9 UNSPECIFIED ABDOMINAL PAIN 04/12/2019 GELLENDER DO, ROSANGELA A Ot Z90.49 ACQUIRED ABSENCE OF OTHER SPECIFIED PART 04/12/2019 DANA OPHELIA FRETTED INSTRUMENT INSPECTOR Ot F41.9 ANXIETY DISORDER, UNSPECIFIED 04/12/2019 DANA OPHELIA FRETTED INSTRUMENT INSPECTOR Ot I10 ESSENTIAL (PRIMARY) HYPERTENSION 04/12/2019 DANA OPHELIA FRETTED INSTRUMENT INSPECTOR Ot J45.909 UNSPECIFIED ASTHMA, UNCOMPLICATED 04/12/2019 DANA, OPHELIA FRETTED INSTRUMENT INSPECTOR Ot K21.9 GASTRO-ESOPHAGEAL REFLUX DISEASE WITHOUT 04/12/2019 DANA, OPHELIA FRETTED INSTRUMENT INSPECTOR Ot 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, UNSPECIFIED, WITH UNSPE 04/12/2019 DANA OPHELIA FRETTED INSTRUMENT INSPECTOR Ot R10.84 GENERALIZED ABDOMINAL PAIN 04/12/2019 DANA OPHELIA FRETTED INSTRUMENT INSPECTOR Ot Z87.19 PERSONAL HISTORY OF OTHER DISEASES OF TH 04/12/2019 DANA OPHELIA FRETTED INSTRUMENT INSPECTOR Ot Z87.442 PERSONAL HISTORY OF URINARY CALCULI 04/12/2019 DANA OPHELIA FRETTED INSTRUMENT INSPECTOR Ot Z87.448 PERSONAL HISTORY OF OTHER DISEASES OF UR 04/12/2019 DANA OPHELIA FRETTED INSTRUMENT INSPECTOR Ot Z87.891 PERSONAL HISTORY OF NICOTINE DEPENDENCE 04/12/2019 OPHELIA CORTEZ FRETTED INSTRUMENT INSPECTOR Ot Z88.0 ALLERGY STATUS TO PENICILLIN 04/12/2019 DANA OPHELIA FRETTED INSTRUMENT INSPECTOR Ot Z88.2 ALLERGY STATUS TO SULFONAMIDES STATUS 04/12/2019 OPHELIA CORTEZ FRETTED INSTRUMENT INSPECTOR Ot Z88.4 ALLERGY STATUS TO ANESTHETIC AGENT STATU 04/12/2019 OPHELIA CORTEZ FRETTED INSTRUMENT INSPECTOR Ot Z88.6 ALLERGY STATUS TO ANALGESIC AGENT STATUS 04/12/2019 DANAOPHELIA Sorensen FRETTED INSTRUMENT INSPECTOR Ot Z88.8 ALLERGY STATUS TO OTH DRUG/MEDS/BIOL SUB 04/12/2019 DANAOPHELIA Sorensen FRETTED INSTRUMENT INSPECTOR Ot Z90.49 ACQUIRED ABSENCE OF OTHER SPECIFIED PART 04/12/2019 DANAOPHELIA Sorensen FRETTED INSTRUMENT INSPECTOR Ot 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 BOTH CERVIX AND UTER 04/12/2019 DANAOPHELIA Sorensen FRETTED INSTRUMENT INSPECTOR Ot Z98.51 TUBAL LIGATION STATUS 04/12/2019 DANAOPHELIA Sorensen FRETTED INSTRUMENT INSPECTOR Ot Z98.890 OTHER SPECIFIED POSTPROCEDURAL STATES 04/14/2019 DANAOPHELIA Sorensen FRETTED INSTRUMENT INSPECTOR Ot F41.9 ANXIETY DISORDER, UNSPECIFIED 04/14/2019 DANA, OPHELIA FRETTED INSTRUMENT INSPECTOR Ot I10 ESSENTIAL (PRIMARY) HYPERTENSION 04/14/2019 DANAOPHELIA SorensenP Ot J45.909 UNSPECIFIED ASTHMA, UNCOMPLICATED 04/14/2019 DANAOPHELIA SorensenP Ot K21.9 GASTRO-ESOPHAGEAL REFLUX DISEASE WITHOUT 04/14/2019 DANAOPHELIA Sorensen FRETTED INSTRUMENT INSPECTOR Ot 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, UNSPECIFIED, WITH UNSPE 04/14/2019 DANAOPHELIA Sorensen FRETTED INSTRUMENT INSPECTOR Ot R10.84 GENERALIZED ABDOMINAL PAIN 04/14/2019 DANAOPHELIA Sorensen FRETTED INSTRUMENT INSPECTOR Ot Z87.19 PERSONAL HISTORY OF OTHER DISEASES OF TH 04/14/2019 DANAOPHELIA Sorensen FRETTED INSTRUMENT INSPECTOR Ot Z87.442 PERSONAL HISTORY OF URINARY CALCULI 04/14/2019 DANAOPHELIA Sorensen FRETTED INSTRUMENT INSPECTOR Ot Z87.448 PERSONAL HISTORY OF OTHER DISEASES OF UR 04/14/2019 DANAOPHELIA Sorensen FRETTED INSTRUMENT INSPECTOR Ot Z87.891 PERSONAL HISTORY OF NICOTINE DEPENDENCE 04/14/2019 DANAOPHELIA Sorensen FRETTED INSTRUMENT INSPECTOR Ot Z88.0 ALLERGY STATUS TO PENICILLIN 04/14/2019 DANAOPHELIA Sorensen FRETTED INSTRUMENT INSPECTOR Ot Z88.2 ALLERGY STATUS TO SULFONAMIDES STATUS 04/14/2019 DANAOPHELIA Sorensen FRETTED INSTRUMENT INSPECTOR Ot Z88.4 ALLERGY STATUS TO ANESTHETIC AGENT STATU 04/14/2019 DANAOPHELIA Sorensen FRETTED INSTRUMENT INSPECTOR Ot Z88.6 ALLERGY STATUS TO ANALGESIC AGENT STATUS 04/14/2019 DANAOPHELAI Sorensen FRETTED INSTRUMENT INSPECTOR Ot Z88.8 ALLERGY STATUS TO OTH DRUG/MEDS/BIOL SUB 04/14/2019 DANAOPHELIA Sorensen FRETTED INSTRUMENT INSPECTOR Ot Z90.49 ACQUIRED ABSENCE OF OTHER SPECIFIED PART 04/14/2019 DANAOPHELIA Sorensen FRETTED INSTRUMENT INSPECTOR Ot 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 BOTH CERVIX AND UTER 04/14/2019 OPHELIA CORTEZP Ot Z98.51 TUBAL LIGATION STATUS 04/14/2019 OPHELIA CORTEZP Ot Z98.890 OTHER SPECIFIED POSTPROCEDURAL STATES 06/14/[address] [facility] JOSE K Ot F17.210 NICOTINE DEPENDENCE, CIGARETTES, UNCOMPL 06/14/[address] [facility] F41.9 ANXIETY DISORDER, UNSPECIFIED 06/14/[address] [facility]10 ESSENTIAL (PRIMARY) HYPERTENSION 06/14/[address] [facility] J45.909 UNSPECIFIED ASTHMA, UNCOMPLICATED 06/14/[address] [facility] M25.512 PAIN IN LEFT SHOULDER 06/14/[address] [facility] S29.012 A STRAIN OF MUSCLE AND TENDON OF BACK WALL 06/14/[address] [facility] S46.912 A STRAIN UNSP MUSC/FASC/TEND AT SHLDR/UP A 06/14/[address] [facility] X50.0XX A OVEREXERTION FROM STRENUOUS MOVEMENT OR 06/14/2019 [facility] DOJOSE Ot Y92.[address] 06/14/[address] [facility] Y99.0 CIVILIAN ACTIVITY DONE FOR INCOME OR PAY 06/14/[address] [facility] Z87.442 PERSONAL HISTORY OF URINARY CALCULI 06/14/[address] [facility].0 ALLERGY STATUS TO PENICILLIN 06/14/[address] [facility].2 ALLERGY STATUS TO SULFONAMIDES STATUS 06/14/[address] [facility].6 ALLERGY STATUS TO ANALGESIC AGENT STATUS 06/14/[address] [facility] Z90.49 ACQUIRED ABSENCE OF OTHER SPECIFIED PART 06/14/[address] [facility] 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 BOTH CERVIX AND UTER 06/14/2019 [facility] JOSE LEE Ot Z98.51 TUBAL LIGATION STATUS 06/14/2019 [facility]890 OTHER SPECIFIED POSTPROCEDURAL STATES 06/19/2019 [place] JOSE LEE Ot F17.210 NICOTINE DEPENDENCE, CIGARETTES, UNCOMPL 06/19/2019 [place] JOSE Kinsey Ot F41.9 ANXIETY DISORDER, UNSPECIFIED 06/19/2019 [place] JOSE Kinsey Ot I10 ESSENTIAL (PRIMARY) HYPERTENSION 06/19/[address] [facility] JOSE Kinsey Ot J45.909 UNSPECIFIED ASTHMA, UNCOMPLICATED 06/19/2019 [place] JOSE Kinsey Ot M25.512 PAIN IN LEFT SHOULDER 06/19/2019 MIHIR DO JOSE K Ot S29.012 A STRAIN OF MUSCLE AND TENDON OF BACK WALL 06/19/[address] [facility] JOSE K Ot S46.912 A STRAIN UNSP MUSC/FASC/TEND AT SHLDR/UP A 06/19/2019 MIHIR JOSE Ot X50.0XX A OVEREXERTION FROM STRENUOUS MOVEMENT OR 06/19/2019 MIHIR JOSE Ot Y92.[address] 06/19/2019 MIHIR CASSYA Kinsey Ot Y99.0 CIVILIAN ACTIVITY DONE FOR INCOME OR PAY 06/19/[address] [facility] JOSE Kinsey Ot Z87.442 PERSONAL HISTORY OF URINARY CALCULI 06/19/2019 MI[facility]IR JOSE Kinsey Ot Z88.0 ALLERGY STATUS TO PENICILLIN 06/19/[address] [facility] Z88.2 ALLERGY STATUS TO SULFONAMIDES STATUS 06/19/[address] [facility] Ot Z88.6 ALLERGY STATUS TO ANALGESIC AGENT STATUS 06/19/[address] [facility] JOSE Kinsey Ot Z90.49 ACQUIRED ABSENCE OF OTHER SPECIFIED PART 06/19/2019 MI[facility]IR JOSE Kinsey Ot 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 BOTH CERVIX AND UTER 06/19/2019 MI[facility]IR JOSE K Ot Z98.51 TUBAL LIGATION STATUS 06/19/2019 MI[facility]IR JOSE Kinsey Ot Z98.890 OTHER SPECIFIED POSTPROCEDURAL STATES 06/21/2019 MIHIR DO JOSE K Ot F17.210 NICOTINE DEPENDENCE, CIGARETTES, UNCOMPL 06/21/2019 MI[facility] JOSE Kinsey Ot F41.9 ANXIETY DISORDER, UNSPECIFIED 06/21/2019 [place] JOSE Kinsey Ot I10 ESSENTIAL (PRIMARY) HYPERTENSION 06/21/2019 [place] JOSE Kinsey Ot J45.909 UNSPECIFIED ASTHMA, UNCOMPLICATED 06/21/2019 [place] DO JOSE Kinsey Ot M25.512 PAIN IN LEFT SHOULDER 06/21/2019 MI[facility]IR JOSE Kinsey Ot S29.012 A STRAIN OF MUSCLE AND TENDON OF BACK WALL 06/21/2019 [place] JOSE Kinsey Ot S46.912 A STRAIN UNSP MUSC/FASC/TEND AT SHLDR/UP A 06/21/2019 MIHIR JOSE Ot X50.0XX A OVEREXERTION FROM STRENUOUS MOVEMENT OR 06/21/2019 MIHIR JOSE Ot Y92.[address] 06/21/2019 MIHIR JOSE Kinsey Ot Y99.0 CIVILIAN ACTIVITY DONE FOR INCOME OR PAY 06/21/2019 MIHIR JOSE Kinsey Ot Z87.442 PERSONAL HISTORY OF URINARY CALCULI 06/21/2019 MIHIR JOSE Kinsey Ot Z88.0 ALLERGY STATUS TO PENICILLIN 06/21/[address] [facility] JOSE K Ot Z88.2 ALLERGY STATUS TO SULFONAMIDES STATUS 06/21/[address] [facility] JOSE Kinsey Ot Z88.6 ALLERGY STATUS TO ANALGESIC AGENT STATUS 06/21/[address] [facility] JOSE Kinsey Ot Z90.49 ACQUIRED ABSENCE OF OTHER SPECIFIED PART 06/21/2019 [place] JOSE Kinsey Ot 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 BOTH CERVIX AND UTER 06/21/[address] [facility] JOSE Kinsey Ot Z98.51 TUBAL LIGATION STATUS 06/21/2019 MIHIR JOSE Euceda Ot Z98.890 OTHER SPECIFIED POSTPROCEDURAL STATES 07/31/2019 REAL MUÑOZ APRN Ot F41 .9 ANXIETY DISORDER, UNSPECIFIED 07/31/2019 REAL MUÑOZ APRN Ot I10 ESSENTIAL (PRIMARY) HYPERTENSION 07/31/2019 REAL MUÑOZ APRN Ot J45.909 UNSPECIFIED ASTHMA, UNCOMPLICATED 07/31/2019 REAL MUÑOZ APRN Ot K21 .9 GASTRO-ESOPHAGEAL REFLUX DISEASE WITHOUT 07/31/2019 REAL MUÑOZ APRN Ot M25.512 PAIN IN LEFT SHOULDER 07/31/2019 REAL MUÑOZ APRN Ot S42.002A FRACTURE OF UNSP PART OF LEFT CLAVICLE, 07/31/2019 REAL MUÑOZ APRN Ot X58.XXXA EXPOSURE TO OTHER SPECIFIED FACTORS, INI 07/31/2019 REAL MUÑOZ APRN Ot Y92.[address] 07/31/2019 REAL MUÑOZ APRN Ot Z77.22 CNTCT W AND EXPSR TO ENVIRON TOBACCO SMO 07/31/2019 REAL MUÑOZ APRN Ot Z79.52 PRESS 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ORN (CURRENT) USE OF SYSTEMIC STER 07/31/2019 REAL MUÑOZ APRN Ot Z87.442 PERSONAL HISTORY OF URINARY CALCULI 07/31/2019 REAL MUÑOZ APRN Ot Z88 .0 ALLERGY STATUS TO PENICILLIN 07/31/2019 REAL MUÑOZ APRN Ot Z88 .2 ALLERGY STATUS TO SULFONAMIDES STATUS 07/31/2019 REAL MUÑOZ APRN Ot Z88 .5 ALLERGY STATUS TO NARCOTIC AGENT STATUS 07/31/2019 REAL MUÑOZ APRN Ot Z88 .6 ALLERGY STATUS TO ANALGESIC AGENT STATUS 07/31/2019 REAL MUÑOZ APRN Ot Z90.49 ACQUIRED ABSENCE OF OTHER SPECIFIED PART 07/31/2019 REAL MUÑOZ APRN Ot 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 BOTH CERVIX AND UTER 07/31/2019 REAL MUÑOZ APRN Ot Z98.51 TUBAL LIGATION STATUS 09/04/2019 DANI MAHMOOD MD Ot F41. 9 ANXIETY DISORDER, UNSPECIFIED 09/04/2019 DANI MAHMOOD MD Ot I10 ESSENTIAL (PRIMARY) HYPERTENSION 09/04/2019 DANI MAHMOOD MD Ot J45.909 UNSPECIFIED ASTHMA, UNCOMPLICATED 09/04/2019 DANI MAHMOOD MD Ot K21. 9 GASTRO-ESOPHAGEAL REFLUX DISEASE WITHOUT 09/04/2019 DANI MAHMOOD MD Ot M79.605 PAIN IN LEFT LEG 09/04/2019 DANI MAHMOOD MD Ot S89.92XA UNSPECIFIED INJURY OF LEFT LOWER LEG, IN 09/04/2019 DANI MAHMOOD MD Ot W18.39XA OTHER FALL ON SAME LEVEL, INITIAL ENCOUN 09/04/2019 DANI MAHMOOD MD Ot Y93. 44 ACTIVITY, TRAMPOLINING 09/04/2019 DANI MAHMOOD MD Ot Z77. 22 CNTCT W AND EXPSR TO ENVIRON TOBACCO SMO 09/04/2019 DANI MAHMOOD MD Ot Z79. 52 FPC (CURRENT) USE OF SYSTEMIC STER 09/04/2019 DANI MAHMOOD MD Ot Z87.442 PERSONAL HISTORY OF URINARY CALCULI 09/04/2019 DANI MAHMOOD MD Ot Z87.891 PERSONAL HISTORY OF NICOTINE DEPENDENCE 09/04/2019 DANI MAHMOOD MD Ot Z88. 0 ALLERGY STATUS TO PENICILLIN 09/04/2019 DANI MAHMOOD MD Ot Z88. 2 ALLERGY STATUS TO SULFONAMIDES STATUS 09/04/2019 DANI MAHMOOD MD Ot Z88. 5 ALLERGY STATUS TO NARCOTIC AGENT STATUS 09/04/2019 DANI MAHMOOD MD Ot Z88. 6 ALLERGY STATUS TO ANALGESIC AGENT STATUS 09/04/2019 DNAI MAHMOOD MD Ot Z90. 49 ACQUIRED ABSENCE OF OTHER SPECIFIED PART 09/04/2019 DANI MAHMOOD MD Ot 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 BOTH CERVIX AND UTER 09/04/2019 DANI MAHMOOD MD Ot Z98. 51 TUBAL LIGATION STATUS 09/07/2019 DANI MAHMOOD MD Ot F41. 9 ANXIETY DISORDER, UNSPECIFIED 09/07/2019 DANI MAHMOOD MD Ot I10 ESSENTIAL (PRIMARY) HYPERTENSION 09/07/2019 DANI MAHMOOD MD Ot J45.909 UNSPECIFIED ASTHMA, UNCOMPLICATED 09/07/2019 DANI MAHMOOD MD Ot K21. 9 GASTRO-ESOPHAGEAL REFLUX DISEASE WITHOUT 09/07/2019 DANI MAHMOOD MD Ot M79.605 PAIN IN LEFT LEG 09/07/2019 DANI MAHMOOD MD Ot S89.92XA UNSPECIFIED INJURY OF LEFT LOWER LEG, IN 09/07/2019 DANI MAHMOOD MD Ot W18.39XA OTHER FALL ON SAME LEVEL, INITIAL ENCOUN 09/07/2019 DANI MAHMOOD MD Ot Y93. 44 ACTIVITY, TRAMPOLINING 09/07/2019 DANI MAHMOOD MD Ot Z77. 22 CNTCT W AND EXPSR TO ENVIRON TOBACCO SMO 09/07/2019 DANI MAHMOOD MD Ot Z79. 52 PRESS 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ORN (CURRENT) USE OF SYSTEMIC STER 09/07/2019 DANI MAHMOOD MD Ot Z87.442 PERSONAL HISTORY OF URINARY CALCULI 09/07/2019 DANI MAHMOOD MD Ot Z87.891 PERSONAL HISTORY OF NICOTINE DEPENDENCE 09/07/2019 DANI MAHOMOD MD Ot Z88. 0 ALLERGY STATUS TO PENICILLIN 09/07/2019 DANI MAHMOOD MD Ot Z88. 2 ALLERGY STATUS TO SULFONAMIDES STATUS 09/07/2019 DANI MAHMOOD MD Ot Z88. 5 ALLERGY STATUS TO NARCOTIC AGENT STATUS 09/07/2019 DANI MAHMOOD MD Ot Z88. 6 ALLERGY STATUS TO ANALGESIC AGENT STATUS 09/07/2019 DANI MAHMOOD MD Ot Z90. 49 ACQUIRED ABSENCE OF OTHER SPECIFIED PART 09/07/2019 DANI MAHMOOD MD Ot 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 BOTH CERVIX AND UTER 09/07/2019 DANI MAHMOOD MD Ot Z98. 51 TUBAL LIGATION STATUS 09/07/2019 GUERA DEUTSCH Ot S42.035A NONDISP FX OF LATERAL END OF LEFT CLAVIC 11/06/2019 ALEJO BARRIENTOS, JODI J Ot 719.05 JOINT EFFUSION-PELVIS 11/06/2019 ALEJO BARRIENTOS, JODI J Ot 719.45 JOINT PAIN-PELVIS 11/06/2019 ALEJO BARRIENTOS, JODI J Ot 793.7 NOSP (ABN) FINDINGS ON RADIOLOGICAL OT 11/06/2019 SYEDA TIJERINA MD Ot V58.6 9 OTH MED,LT,CURRENT USE 11/06/2019 SYEDA TIJERINA MD Ot V58.8 3 ENCOUNTER FOR THERAPEUTIC DRUG MONITORIN 11/06/2019 GELLENDER DO, ROSANGELA Mendieta Ot K50.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, UNSPECIFIED, WITHOUT CO 11/06/2019 GELLENDER DOROSANGELA Ot R53.83 OTHER FATIGUE 11/06/2019 GELLENDER DOROSANGELA Ot K92.1 MELENA 11/06/2019 GELLENDER DO, ROSANGELA Mendieta Ot R10.9 UNSPECIFIED ABDOMINAL PAIN 11/06/2019 GELLENDER DO, ROSANGELA Mendieta Ot Z90.49 ACQUIRED ABSENCE OF OTHER SPECIFIED PART 11/06/2019 GUERA DEUTSCH Ot S42.035A NONDISP FX OF LATERAL END OF LEFT CLAVIC 12/01/2019 EDIL SIMMONS MD Ot J45.909 UNSPECIFIED ASTHMA, UNCOMPLICATED 12/01/2019 EDIL SIMMONS MD Ot M25.512 PAIN IN LEFT SHOULDER 12/01/2019 EDIL SIMMONS MD Ot Z87.81 PERSONAL HISTORY OF (HEALED) TRAUMATIC F 12/01/2019 EDIL SIMMONS MD Ot 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 02/06/2020 EDIL SIMMONS MD, Ot J45.909 UNSPECIFIED ASTHMA, UNCOMPLICATED 02/06/2020 EDIL SIMMONS MD Ot M25.512 PAIN IN LEFT SHOULDER 02/06/2020 EDIL SIMMONS MD, Ot Z87.81 PERSONAL HISTORY OF (HEALED) TRAUMATIC F 02/06/2020 EDIL SIMMONS MD, Ot 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 03/01/2020 BREEZY BARRIENTOS, SYEDA Mendieta Ot V58.6 9 OTH MED,LT,CURRENT USE 03/01/2020 SYEDA TIJERINA MD Ot V58.8 3 ENCOUNTER FOR THERAPEUTIC DRUG MONITORIN 03/01/2020 GELLENDER DO, ROSANGELA Mendieta Ot K50.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, UNSPECIFIED, WITHOUT CO 03/01/2020 GELLENDER DO, ROSANGELA Mendieta Ot R53.83 OTHER FATIGUE 03/01/2020 GELLENDER DO, ROSANGELA Mendieta Ot K92.1 MELENA 03/01/2020 GELLENDER DO, ROSANGELA Mendieta Ot R10.9 UNSPECIFIED ABDOMINAL PAIN 03/01/2020 GELLENDER DO, ROSANGELA Mendieta Ot Z90.49 ACQUIRED ABSENCE OF OTHER SPECIFIED PART 03/01/2020 GUERA DEUTSCH Ot S42.035A NONDISP FX OF LATERAL END OF LEFT CLAVIC 03/01/2020 EDIL SIMMONS MD, Ot J45.909 UNSPECIFIED ASTHMA, UNCOMPLICATED 03/01/2020 EDIL SIMMONS MD Ot M25.512 PAIN IN LEFT SHOULDER 03/01/2020 EDIL SIMMONS MD Ot Z87.81 PERSONAL HISTORY OF (HEALED) TRAUMATIC F 03/01/2020 EDIL SIMMONS MD, Ot 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 03/04/2020 EDIL SIMMONS MD, Ot J45.909 UNSPECIFIED ASTHMA, UNCOMPLICATED 03/04/2020 EDIL SIMMONS MD Ot M25.512 PAIN IN LEFT SHOULDER 03/04/2020 EDIL SIMMONS MD, Ot Z87.81 PERSONAL HISTORY OF (HEALED) TRAUMATIC F 03/04/2020 EDIL SIMMONS MD, Ot 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 03/05/2020 EDIL SIMMONS MD, Ot J45.909 UNSPECIFIED ASTHMA, UNCOMPLICATED 03/05/2020 EDIL SIMMONS MD Ot M25.512 PAIN IN LEFT SHOULDER 03/05/2020 EDIL SIMMONS MD, Ot Z87.81 PERSONAL HISTORY OF (HEALED) TRAUMATIC F 03/05/2020 EDIL SIMMONS MD, Ot 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 04/09/2020 BREEZY BARRIENTOS, SYEDA Mendieta Ot V58.6 9 OTH MED,LT,CURRENT USE 04/09/2020 SYEDA TIJERINA MD Ot V58.8 3 ENCOUNTER FOR THERAPEUTIC DRUG MONITORIN 04/09/2020 GELLENDER DO, ROSANGELA Mendieta Ot K50.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, UNSPECIFIED, WITHOUT CO 04/09/2020 GELLENDER DOROSANGELA Ot R53.83 OTHER FATIGUE 04/09/2020 GELLENDER DO, ROSANGELA Mendieta Ot K92.1 MELENA 04/09/2020 GELLENDER DO, ROSANGELA Mendieta Ot R10.9 UNSPECIFIED ABDOMINAL PAIN 04/09/2020 GELLENDER DO, ROSANGELA Mendieta Ot Z90.49 ACQUIRED ABSENCE OF OTHER SPECIFIED PART 04/09/2020 GUERA DEUTSCH Ot S42.035A NONDISP FX OF LATERAL END OF LEFT CLAVIC 04/09/2020 EDIL SIMMONS MD, Ot J45.909 UNSPECIFIED ASTHMA, UNCOMPLICATED 04/09/2020 EDIL SIMMONS MD Ot M25.512 PAIN IN LEFT SHOULDER 04/09/2020 EDIL SIMMONS MD, Ot Z87.81 PERSONAL HISTORY OF (HEALED) TRAUMATIC F 04/09/2020 EDIL SIMMONS MD Ot 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 04/09/2020 OPHELIA CORTEZ Ot G89.29 OTHER CHRONIC PAIN 04/09/2020 OPHELIA CORTEZ Ot K21.9 GASTRO-ESOPHAGEAL REFLUX DISEASE WITHOUT 04/09/2020 DANA, OPHELIA FRETTED INSTRUMENT INSPECTOR Ot K50.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, UNSPECIFIED, WITHOUT CO 04/09/2020 DANA, OPHELIA FRETTED INSTRUMENT INSPECTOR Ot M25.531 PAIN IN RIGHT WRIST 04/09/2020 DANA, OPHELIA FRETTED INSTRUMENT INSPECTOR Ot M25.532 PAIN IN LEFT WRIST 04/09/2020 DANA, OPHELIA FRETTED INSTRUMENT INSPECTOR Ot M25.551 PAIN IN RIGHT HIP 04/09/2020 DANA, OPHELIA FRETTED INSTRUMENT INSPECTOR Ot M25.552 PAIN IN LEFT HIP 04/09/2020 DANA, OPHELIA FRETTED INSTRUMENT INSPECTOR Ot M54.5 LOW BACK PAIN 04/09/2020 DANA, OPHELIA FRETTED INSTRUMENT INSPECTOR Ot N39.0 URINARY TRACT INFECTION, SITE NOT SPECIF 04/09/2020 DANA, OPHELIA FRETTED INSTRUMENT INSPECTOR Ot R10.13 EPIGASTRIC PAIN 04/09/2020 DANA, OPHELIA FRETTED INSTRUMENT INSPECTOR Ot Z87.891 PERSONAL HISTORY OF NICOTINE DEPENDENCE 04/09/2020 DANA, OPHELIA FRETTED INSTRUMENT INSPECTOR Ot Z88.0 ALLERGY STATUS TO PENICILLIN 04/09/2020 DANA, OPHELIA FRETTED INSTRUMENT INSPECTOR Ot Z88.2 ALLERGY STATUS TO SULFONAMIDES STATUS 04/09/2020 DANA, OPHELIA FRETTED INSTRUMENT INSPECTOR Ot Z88.5 ALLERGY STATUS TO NARCOTIC AGENT STATUS 04/09/2020 DANA, OPHELIA FRETTED INSTRUMENT INSPECTOR Ot Z88.6 ALLERGY STATUS TO ANALGESIC AGENT STATUS 04/09/2020 DANA, OPHELIA FRETTED INSTRUMENT INSPECTOR Ot 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 BOTH CERVIX AND UTER 04/09/2020 DANA, OPHELIA FRETTED INSTRUMENT INSPECTOR Ot Z98.51 TUBAL LIGATION STATUS 04/12/2020 DAAN, OPHELIA FRETTED INSTRUMENT INSPECTOR Ot G89.29 OTHER CHRONIC PAIN 04/12/2020 DANA, OPHELIA FRETTED INSTRUMENT INSPECTOR Ot K21.9 GASTRO-ESOPHAGEAL REFLUX DISEASE WITHOUT 04/12/2020 DANA, OPHELIA FRETTED INSTRUMENT INSPECTOR Ot K50.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, UNSPECIFIED, WITHOUT CO 04/12/2020 DANA, OPHELIA FRETTED INSTRUMENT INSPECTOR Ot M25.531 PAIN IN RIGHT WRIST 04/12/2020 DANA, OPHELIA FRETTED INSTRUMENT INSPECTOR Ot M25.532 PAIN IN LEFT WRIST 04/12/2020 DANA, OPHELIA FRETTED INSTRUMENT INSPECTOR Ot M25.551 PAIN IN RIGHT HIP 04/12/2020 DANA, OPHELIA FRETTED INSTRUMENT INSPECTOR Ot M25.552 PAIN IN LEFT HIP 04/12/2020 DANA, OPHELIA FRETTED INSTRUMENT INSPECTOR Ot M54.5 LOW BACK PAIN 04/12/2020 DANA, OPHELIA FRETTED INSTRUMENT INSPECTOR Ot N39.0 URINARY TRACT INFECTION, SITE NOT SPECIF 04/12/2020 OPHELIA CORTEZP Ot R10.13 EPIGASTRIC PAIN 04/12/2020 OPHELIA CORTEZP Ot Z87.891 PERSONAL HISTORY OF NICOTINE DEPENDENCE 04/12/2020 DANA, OPHELIA GARCÍAP Ot Z88.0 ALLERGY STATUS TO PENICILLIN 04/12/2020 DANAOPHELIA Sorensen FRETTED INSTRUMENT INSPECTOR Ot Z88.2 ALLERGY STATUS TO SULFONAMIDES STATUS 04/12/2020 DANA, OPHELIA GARCÍAP Ot Z88.5 ALLERGY STATUS TO NARCOTIC AGENT STATUS 04/12/2020 DNAA, OPHELIA GARCÍAP Ot Z88.6 ALLERGY STATUS TO ANALGESIC AGENT STATUS 04/12/2020 DANA, OPHELIA GARCÍAP Ot 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 BOTH CERVIX AND UTER 04/12/2020 DANA OPHELIA GARCÍAP Ot Z98.51 TUBAL LIGATION STATUS Procedures Code Description Performed By Per brooke On [address] R LAPAROSCOPIC PARTIAL EXCISION OF L 08/30/2009 45.93 SMAL L-TO-LARGE BOWEL NEC 08/30/2009 45.25 CLOS ED ENDOSCOPIC BIOPSY OF LARGE INTEST 04/20/2010 Results Test Result Range Complete blood count (CBC) with automate d white blood cell (WBC) differential - 06/14/16 23:15 Blood leukocytes automated count (number/volume) 10.2 10*3/uL 4.3-11.0 Blood erythrocytes automated count (number/volume) 4.51 10*6/uL 4.35-5.85 Venous blood hemoglobin measurement (mass/volume) 14.3 g/dL 11.5-16.0 Blood hematocrit (volume fraction) 42 % 35-52 Automated erythrocyte mean corpuscular volume 94 [ foz_us] 80-99 Automated erythrocyte mean corpuscular h emoglobin (mass per erythrocyte) 32 pg 25-34 Automated erythrocyte mean corpuscular h emoglobin concentration measurement (mass/volume) 34 g/dL 32-36 Automated erythrocyte distribution width ratio 13. 1 % 10.0- 14.5 Automated blood platelet count (count/volume) 362 10*3/uL [...] 10*3 1.0-4.0 Blood monocytes automated count (number/volume) 0. 6 10*3 0.0-1.0 Automated eosinophil count 0.4 10*3/uL 0 .0-0.3 Automated blood basophil count (count/volume) 0.1 10*3/uL 0.0-0.1 Comprehensive metabolic panel - 06/14/16 23:15 Serum or plasma sodium measurement (moles/volume) 143 mmol/L 135-145 Serum or plasma potassium measurement (moles/volume) 3.3 mmol/L 3.6-5.0 Serum or plasma chloride measurement (moles/volume) 107 mmol/L 98-107 Carbon dioxide 22 mmol/L 21-32 Serum or plasma anion gap determination (moles/volume) 14 mmol/L 5-14 Serum or plasma urea nitrogen measurement (mass/volume ) 5 mg/dL 7-18 Serum or plasma creatinine measurement (mass/volume) 0.77 mg/dL 0.60-1.30 Serum or plasma urea nitrogen/creatinine mass ratio 6 NRG Serum or plasma creatinine measurement w ith calculation of estimated glomerular filtration rate > NRG Serum or plasma glucose measurement (mass/volume) 87 mg/dL 70-105 Serum or plasma calcium measurement (mass/volume) 9.7 mg/dL 8.5-10.1 Serum or plasma total bilirubin measurement (mass/volu me) 0.5 mg/dL 0.1-1.0 Serum or plasma alkaline phosphatase cathy surement (enzymatic activity/volume) 93 U/L 40-136 Serum or plasma aspartate aminotransfera se measurement (enzymatic activity/volume) 16 U/L 5-34 Serum or plasma alanine aminotransferase measurement (enzymatic activity/volume) 17 U/L 0-55 Serum or plasma protein measurement (mass/volume) 7.0 g/dL 6.4-8.2 Serum or plasma albumin measurement (mass/volume) 4.3 g/dL 3.2-4.5 Serum or plasma amylase measurement (enz ymatic activity/volume) - 06/14/16 23:15 Serum or plasma amylase measurement (enzymatic activit y/volume) 43 U/L 25-125 Lipase - 06/14/16 23:15 Lipase 14 U/L 8-78 Complete blood count (CBC) with automate d white blood cell (WBC) differential - 07/05/16 16:45 Blood leukocytes automated count (number/volume) 13.0 10*3/uL 4.3-11.0 Blood erythrocytes automated count (number/volume) 5.06 10*6/uL 4.35-5.85 Venous blood hemoglobin measurement (mass/volume) 15.8 g/dL 11.5-16.0 Blood hematocrit (volume fraction) 46 % 35-52 Automated erythrocyte mean corpuscular volume 91 [ foz_us] 80-99 Automated erythrocyte mean corpuscular h emoglobin (mass per erythrocyte) 31 pg 25-34 Automated erythrocyte mean corpuscular h emoglobin concentration measurement (mass/volume) 34 g/dL 32-36 Automated erythrocyte distribution width ratio 13. 1 % 10.0- 14.5 Automated blood platelet count (count/volume) 323 10*3/uL [...] 10*3 1.0-4.0 Blood monocytes automated count (number/volume) 0. 5 10*3 0.0-1.0 Automated eosinophil count 0.2 10*3/uL 0 .0-0.3 Automated blood basophil count (count/volume) 0.0 10*3/uL 0.0-0.1 Erythrocyte sedimentation rate by renetta gren method - 07/05/16 16:45 Erythrocyte sedimentation rate by westergren method 2 mm 0- 20 Comprehensive metabolic panel - 07/05/16 16:45 Serum or plasma sodium measurement (moles/volume) 138 mmol/L 135-145 Serum or plasma potassium measurement (moles/volume) 3.1 mmol/L 3.6-5.0 Serum or plasma chloride measurement (moles/volume) 106 mmol/L 98-107 Carbon dioxide 20 mmol/L 21-32 Serum or plasma anion gap determination (moles/volume) 12 mmol/L 5-14 Serum or plasma urea nitrogen measurement (mass/volume ) 6 mg/dL 7-18 Serum or plasma creatinine measurement (mass/volume) 0.76 mg/dL 0.60-1.30 Serum or plasma urea nitrogen/creatinine mass ratio 8 NRG Serum or plasma creatinine measurement w ith calculation of estimated glomerular filtration rate > NRG Serum or plasma glucose measurement (mass/volume) 107 mg/dL 70-105 Serum or plasma calcium measurement (mass/volume) 9.5 mg/dL 8.5-10.1 Serum or plasma total bilirubin measurement (mass/volu me) 0.7 mg/dL 0.1-1.0 Serum or plasma alkaline phosphatase cathy surement (enzymatic activity/volume) 93 U/L 40-136 Serum or plasma aspartate aminotransfera se measurement (enzymatic activity/volume) 19 U/L 5-34 Serum or plasma alanine aminotransferase measurement (enzymatic activity/volume) 19 U/L 0-55 Serum or plasma protein measurement (mass/volume) 6.9 g/dL 6.4-8.2 Serum or plasma albumin measurement (mass/volume) 4.3 g/dL 3.2-4.5 Lipase - 07/05/16 16:45 Lipase 7 U/L 8-78 Serum or plasma C reactive protein measu rement (mass/volume) - 07/05/16 16:45 Serum or plasma C reactive protein measurement (mass/v olume) 1.69 mg/dL 0.00-0.50 Complete urinalysis with reflex to cultu re - 07/05/16 18:05 Urine color determination YELLOW NRG Urine clarity determination CLEAR NR G Urine pH measurement by test strip 6 5-9 Specific gravity of urine by test strip 1.025 1.016-1.022 Urine protein assay by test strip, semi-quantitative 2+ NEGATIVE Urine glucose detection by automated test strip NE GATIVE NEGATIVE Erythrocytes detection in urine sediment by light micr oscopy NEGATIVE NEGATIVE Urine ketones detection by automated test strip NE GATIVE NEGATIVE Urine nitrite detection by test strip NEGATIVE NEGATIVE Urine total bilirubin detection by test strip NEGA TIVE NEGATIVE Urine urobilinogen measurement by automated test strip (mass/volume) NORMAL NORMAL Urine leukocyte esterase detection by dipstick 1+ NEGATIVE Automated urine sediment erythrocyte cou nt by microscopy (number/high power field) NONE NRG Automated urine sediment leukocyte count by microscopy (number/high power field) [HPF] NRG Bacteria detection in urine sediment by light microsco py FEW NRG Squamous epithelial cells detection in u rine sediment by light microscopy 2-5 NRG Crystals detection in urine sediment by light microsco py PRESENT NRG Casts detection in urine sediment by light microscopy NONE NRG Mucus detection in urine sediment by light microscopy SMALL NRG Complete urinalysis with reflex to culture YES NRG Calcium oxalate crystals detection in ur ine sediment by light microscopy MODERATE NRG Stool leukocytes detection by light micr oscopy - 07/05/16 18:05 FECAL WBC RESULTS FEW WBC'S OBSERVED ON DIRECT SME AR NRG FECAL NOTE FECAL LEUKOCYTES MAY BE INTE RMITTENTLY PRESENT OR NRG FECAL NOTE UNEVENLY DISTRIBUTED IN STOO L SPECIMENS, AND WBC NRG FECAL NOTE MORPHOLOGY DEGRADES DURING TRANSPORT NRG FECAL NOTE NOTE: NRG Clostridium difficile detection - 18:05 C DIFF MOLECULAR RESULT Negative for toxigen ic C diff by DNA amplification NRG Stool [...] 5-14 Serum or plasma urea nitrogen measurement (mass/volume ) 13 mg/dL 7-18 Serum or plasma creatinine measurement (mass/volume) 0.90 mg/dL 0.60-1.30 Serum or plasma urea nitrogen/creatinine mass ratio 14 NRG Serum or plasma creatinine measurement w ith calculation of estimated glomerular filtration rate > NRG Serum or plasma glucose measurement (mass/volume) 90 mg/dL 70-105 Serum or plasma calcium measurement (mass/volume) 9.6 mg/dL 8.5-10.1 Serum or plasma total bilirubin measurement (mass/volu me) 0.3 mg/dL 0.1-1.0 Serum or plasma alkaline phosphatase cathy surement (enzymatic activity/volume) 91 U/L 40-136 Serum or plasma aspartate aminotransfera se measurement (enzymatic activity/volume) 18 U/L 5-34 Serum or plasma alanine aminotransferase measurement (enzymatic activity/volume) 19 U/L 0-55 Serum or plasma protein measurement (mass/volume) 7.1 g/dL 6.4-8.2 Serum or plasma albumin measurement (mass/volume) 4.4 g/dL 3.2-4.5 Magnesium - 08/26/16 17:15 Magnesium 1.8 mg/dL 1.8-2.4 Serum or plasma C reactive protein measu rement (mass/volume) - 08/26/16 17:15 Serum or plasma C reactive protein measurement (mass/v olume) 0.31 mg/dL 0.00-0.50 Complete blood count (CBC) with automate d white blood cell (WBC) differential - 08/26/16 17:15 Blood leukocytes automated count (number/volume) 14.6 10*3/uL 4.3-11.0 Blood erythrocytes automated count (number/volume) 4.70 10*6/uL 4.35-5.85 Venous blood hemoglobin measurement (mass/volume) 14.6 g/dL 11.5-16.0 Blood hematocrit (volume fraction) 43 % 35-52 Automated erythrocyte mean corpuscular volume 90 [ foz_us] 80-99 Automated erythrocyte mean corpuscular h emoglobin (mass per erythrocyte) 31 pg 25-34 Automated erythrocyte mean corpuscular h emoglobin concentration measurement (mass/volume) 34 g/dL 32-36 Automated erythrocyte distribution width ratio 13. 0 % 10.0- 14.5 Automated blood platelet count (count/volume) 394 10*3/uL [...] 10*3 1.0-4.0 Blood monocytes automated count (number/volume) 1. 0 10*3 0.0-1.0 Automated eosinophil count 0.1 10*3/uL 0 .0-0.3 Automated blood basophil count (count/volume) 0.0 10*3/uL 0.0-0.1 Blood manual differential performed dete ction - 08/26/16 17:15 Blood monocytes/100 leukocytes 1 % NRG Manual blood segmented neutrophils/100 leukocytes 76 % NRG Blood band neutrophils/100 leukocytes 0 % NRG Manual blood lymphocytes/100 leukocytes 23 % NRG Manual eosinophils/100 leukocytes in nose 0 % NRG Manual blood basophils/100 leukocytes 0 % NRG Blood erythrocyte morphology finding identification NORMAL NRG Erythrocyte sedimentation rate by renetta gren method - 08/26/16 17:15 Erythrocyte sedimentation rate by westergren method 8 mm 0- 20 Complete urinalysis with reflex to cultu re - 08/26/16 18:52 Urine color determination YELLOW NRG Urine clarity determination SLIGHTLY CLOUDY NRG Urine pH measurement by test strip 6 5-9 Specific gravity of urine by test strip 1.015 1.016-1.022 Urine protein assay by test strip, semi-quantitative NEGATIVE NEGATIVE Urine glucose detection by automated test strip NE GATIVE NEGATIVE Erythrocytes detection in urine sediment by light micr oscopy NEGATIVE NEGATIVE Urine ketones detection by automated test strip NE GATIVE NEGATIVE Urine nitrite detection by test strip NEGATIVE NEGATIVE Urine total bilirubin detection by test strip NEGA TIVE NEGATIVE Urine urobilinogen measurement by automated test strip (mass/volume) NORMAL NORMAL Urine leukocyte esterase detection by dipstick 1+ NEGATIVE Automated urine sediment erythrocyte cou nt by microscopy (number/high power field) NONE NRG Automated urine sediment leukocyte count by microscopy (number/high power field) [HPF] NRG Bacteria detection in urine sediment by light microsco py TRACE NRG Crystals detection in urine sediment by light microsco py NONE NRG Casts detection in urine sediment by light microscopy NONE NRG Mucus detection in urine sediment by light microscopy MODERATE NRG Complete urinalysis with reflex to culture NO NRG Complete blood count (CBC) with automate d white blood cell (WBC) differential - 09/12/16 14:40 Blood leukocytes automated count (number/volume) 8.5 10*3/uL 4.3-11.0 Blood erythrocytes automated count (number/volume) 4.48 10*6/uL 4.35-5.85 Venous blood hemoglobin measurement (mass/volume) 14.0 g/dL 11.5-16.0 Blood hematocrit (volume fraction) 42 % 35-52 Automated erythrocyte mean corpuscular volume 93 [ foz_us] 80-99 Automated erythrocyte mean corpuscular h emoglobin (mass per erythrocyte) 31 pg 25-34 Automated erythrocyte mean corpuscular h emoglobin concentration measurement (mass/volume) 34 g/dL 32-36 Automated erythrocyte distribution width ratio 13. 4 % 10.0- 14.5 Automated blood platelet count (count/volume) 342 10*3/uL [...] 10*3 1.0-4.0 Blood monocytes automated count (number/volume) 0. 7 10*3 0.0-1.0 Automated eosinophil count 0.4 10*3/uL 0 .0-0.3 Automated blood basophil count (count/volume) 0.1 10*3/uL 0.0-0.1 Comprehensive metabolic panel - 09/12/16 14:40 Serum or plasma sodium measurement (moles/volume) 142 mmol/L 135-145 Serum or plasma potassium measurement (moles/volume) 3.6 mmol/L 3.6-5.0 Serum or plasma chloride measurement (moles/volume) 110 mmol/L 98-107 Carbon dioxide 24 mmol/L 21-32 Serum or plasma anion gap determination (moles/volume) 8 mmol/L 5-14 Serum or plasma urea nitrogen measurement (mass/volume ) 10 mg/dL 7-18 Serum or plasma creatinine measurement (mass/volume) 0.81 mg/dL 0.60-1.30 Serum or plasma urea nitrogen/creatinine mass ratio 12 NRG Serum or plasma creatinine measurement w ith calculation of estimated glomerular filtration rate > NRG Serum or plasma glucose measurement (mass/volume) 90 mg/dL 70-105 Serum or plasma calcium measurement (mass/volume) 9.4 mg/dL 8.5-10.1 Serum or plasma total bilirubin measurement (mass/volu me) 0.4 mg/dL 0.1-1.0 Serum or plasma alkaline phosphatase cathy surement (enzymatic activity/volume) 89 U/L 40-136 Serum or plasma aspartate aminotransfera se measurement (enzymatic activity/volume) 15 U/L 5-34 Serum or plasma alanine aminotransferase measurement (enzymatic activity/volume) 15 U/L 0-55 Serum or plasma protein measurement (mass/volume) 6.4 g/dL 6.4-8.2 Serum or plasma albumin measurement (mass/volume) 4.2 g/dL 3.2-4.5 Lipase - 09/12/16 14:40 Lipase 33 U/L 8-78 Serum or plasma C reactive protein measu rement (mass/volume) - 09/12/16 14:40 Serum or plasma C reactive protein measurement (mass/v olume) 0.35 mg/dL 0.00-0.50 Erythrocyte sedimentation rate by renetta gren method - 09/12/16 14:40 Erythrocyte sedimentation rate by westergren method 7 mm 0- 20 Complete urinalysis with reflex to cultu re - 09/12/16 15:45 Urine color determination YELLOW NRG Urine clarity determination CLEAR NR G Urine pH measurement by test strip 6 5-9 Specific gravity of urine by test strip 1.010 1.016-1.022 Urine protein assay by test strip, semi-quantitative NEGATIVE NEGATIVE Urine glucose detection by automated test strip NE GATIVE NEGATIVE Erythrocytes detection in urine sediment by light micr oscopy NEGATIVE NEGATIVE Urine ketones detection by automated test strip NE GATIVE NEGATIVE Urine nitrite detection by test strip NEGATIVE NEGATIVE Urine total bilirubin detection by test strip NEGA TIVE NEGATIVE Urine urobilinogen measurement by automated test strip (mass/volume) NORMAL NORMAL Urine leukocyte esterase detection by dipstick NEG ATIVE NEGATIVE Automated urine sediment erythrocyte cou nt by microscopy (number/high power field) NONE NRG Automated urine sediment leukocyte count by microscopy (number/high power field) [HPF] NRG Bacteria detection in urine sediment by light microsco py NEGATIVE NRG Squamous epithelial cells detection in u rine sediment by light microscopy 5-10 NRG Crystals detection in urine sediment by light microsco py NONE NRG Casts detection in urine sediment by light microscopy NONE NRG Mucus detection in urine sediment by light microscopy NEGATIVE NRG Complete urinalysis with reflex to culture NO NRG Renal epithelial cells detection in urin e sediment by light microscopy NONE NRG Complete blood count (CBC) with automate d white blood cell (WBC) differential - 02/18/17 15:45 Blood leukocytes automated count (number/volume) 11.6 10*3/uL 4.3-11.0 Blood erythrocytes automated count (number/volume) 4.58 10*6/uL 4.35-5.85 Venous blood hemoglobin measurement (mass/volume) 14.3 g/dL 11.5-16.0 Blood hematocrit (volume fraction) 43 % 35-52 Automated erythrocyte mean corpuscular volume 94 [ foz_us] 80-99 Automated erythrocyte mean corpuscular h emoglobin (mass per erythrocyte) 31 pg 25-34 Automated erythrocyte mean corpuscular h emoglobin concentration measurement (mass/volume) 33 g/dL 32-36 Automated erythrocyte distribution width ratio 13. 0 % 10.0- 14.5 Automated blood platelet count (count/volume) 380 10*3/uL [...] 10*3 1.0-4.0 Blood monocytes automated count (number/volume) 0. 6 10*3 0.0-1.0 Automated eosinophil count 1.4 10*3/uL 0 .0-0.3 Automated blood basophil count (count/volume) 0.0 10*3/uL 0.0-0.1 Comprehensive metabolic panel - 02/18/17 15:45 Serum or plasma sodium measurement (moles/volume) 143 mmol/L 135-145 Serum or plasma potassium measurement (moles/volume) 3.7 mmol/L 3.6-5.0 Serum or plasma chloride measurement (moles/volume) 107 mmol/L 98-107 Carbon dioxide 26 mmol/L 21-32 Serum or plasma anion gap determination (moles/volume) 10 mmol/L 5-14 Serum or plasma urea nitrogen measurement (mass/volume ) 6 mg/dL 7-18 Serum or plasma creatinine measurement (mass/volume) 0.79 mg/dL 0.60-1.30 Serum or plasma urea nitrogen/creatinine mass ratio 8 NRG Serum or plasma creatinine measurement w ith calculation of estimated glomerular filtration rate > NRG Serum or plasma glucose measurement (mass/volume) 77 mg/dL 70-105 Serum or plasma calcium measurement (mass/volume) 9.5 mg/dL 8.5-10.1 Serum or plasma total bilirubin measurement (mass/volu me) 0.3 mg/dL 0.1-1.0 Serum or plasma alkaline phosphatase cathy surement (enzymatic activity/volume) 86 U/L 40-136 Serum or plasma aspartate aminotransfera se measurement (enzymatic activity/volume) 24 U/L 5-34 Serum or plasma alanine aminotransferase measurement (enzymatic activity/volume) 27 U/L 0-55 Serum or plasma protein measurement (mass/volume) 6.7 g/dL 6.4-8.2 Serum or plasma albumin measurement (mass/volume) 4.1 g/dL 3.2-4.5 Magnesium - 02/18/17 15:45 Magnesium 2.0 mg/dL 1.8-2.4 Serum or plasma C reactive protein measu rement (mass/volume) - 02/18/17 15:45 Serum or plasma C reactive protein measurement (mass/v olume) 0.37 mg/dL 0.00-0.50 Blood manual differential performed dete ction - 02/18/17 15:45 Blood monocytes/100 leukocytes 2 % NRG Manual blood segmented neutrophils/100 leukocytes 54 % NRG Blood band neutrophils/100 leukocytes 0 % NRG Manual blood lymphocytes/100 leukocytes 37 % NRG Manual eosinophils/100 leukocytes in nose 7 % NRG Manual blood basophils/100 leukocytes 0 % NRG Blood erythrocyte morphology finding identification NORMAL NRG Erythrocyte sedimentation rate by renetta gren method - 02/18/17 15:45 Erythrocyte sedimentation rate by westergren method 11 mm 0- 20 Complete urinalysis with reflex to cultu re - 03/19/17 20:50 Urine color determination YELLOW NRG Urine clarity determination SLIGHTLY CLOUDY NRG Urine pH measurement by test strip 5 5-9 Specific gravity of urine by test strip 1.025 1.016-1.022 Urine protein assay by test strip, semi-quantitative 1+ NEGATIVE Urine glucose detection by automated test strip NE GATIVE NEGATIVE Erythrocytes detection in urine sediment by light micr oscopy NEGATIVE NEGATIVE Urine ketones detection by automated test strip 1+ NEGATIVE Urine nitrite detection by test strip NEGATIVE NEGATIVE Urine total bilirubin detection by test strip 1+ NEGATIVE Urine urobilinogen measurement by automated test strip (mass/volume) 1 mg/dL NORMAL Urine leukocyte esterase detection by dipstick 2+ NEGATIVE Automated urine sediment erythrocyte cou nt by microscopy (number/high power field) NONE NRG Automated urine sediment leukocyte count by microscopy (number/high power field) [HPF] NRG Bacteria detection in urine sediment by light microsco py FEW NRG Squamous epithelial cells detection in u rine sediment by light microscopy 2-5 NRG Crystals detection in urine sediment by light microsco py NONE NRG Casts detection in urine sediment by light microscopy NONE NRG Mucus detection in urine sediment by light microscopy MODERATE NRG Complete urinalysis with reflex to culture YES NRG Urine drug screening test - 03/19/17 20: 50 Urine phencyclidine detection by screening method NEGATIVE NEGATIVE Urine benzodiazepines detection by screening method NEGATIVE NEGATIVE Urine cocaine detection NEGATIVE NEGATI VE Urine amphetamines detection by screening method N EGATIVE NEGATIVE Urine methamphetamine detection by screening method NEGATIVE NEGATIVE Urine cannabinoids detection by screening method N EGATIVE NEGATIVE Urine opiates detection by screening method POSITI VE NEGATIVE Urine barbiturates detection NEGATIVE N EGATIVE Screening urine tricyclic antidepressants detection NEGATIVE NEGATIVE Urine methadone detection by screening method NEGA TIVE NEGATIVE Urine oxycodone detection NEGATIVE NEGA TIVE Urine propoxyphene detection NEGATIVE N EGATIVE Bacterial urine culture - 03/19/17 20:50 URINE CULTURE RESULTS <10,000/ML NRG Complete blood count (CBC) with automate d white blood cell (WBC) differential - 03/19/17 21:05 Blood leukocytes automated count (number/volume) 10.6 10*3/uL 4.3-11.0 Blood erythrocytes automated count (number/volume) 4.15 10*6/uL 4.35-5.85 Venous blood hemoglobin measurement (mass/volume) 13.1 g/dL 11.5-16.0 Blood hematocrit (volume fraction) 39 % 35-52 Automated erythrocyte mean corpuscular volume 93 [ foz_us] 80-99 Automated erythrocyte mean corpuscular h emoglobin (mass per erythrocyte) 32 pg 25-34 Automated erythrocyte mean corpuscular h emoglobin concentration measurement (mass/volume) 34 g/dL 32-36 Automated erythrocyte distribution width ratio 12. 4 % 10.0- 14.5 Automated blood platelet count (count/volume) 370 10*3/uL [...] 10*3 1.0-4.0 Blood monocytes automated count (number/volume) 0. 8 10*3 0.0-1.0 Automated eosinophil count 1.0 10*3/uL 0 .0-0.3 Automated blood basophil count (count/volume) 0.1 10*3/uL 0.0-0.1 Complete urinalysis with reflex to cultu re - 04/12/17 19:44 Urine color determination YELLOW NRG Urine clarity determination CLEAR NR G Urine pH measurement by test strip 5 5-9 Specific gravity of urine by test strip 1.020 1.016-1.022 Urine protein assay by test strip, semi-quantitative NEGATIVE NEGATIVE Urine glucose detection by automated test strip NE GATIVE NEGATIVE Erythrocytes detection in urine sediment by light micr oscopy NEGATIVE NEGATIVE Urine ketones detection by automated test strip NE GATIVE NEGATIVE Urine nitrite detection by test strip NEGATIVE NEGATIVE Urine total bilirubin detection by test strip NEGA TIVE NEGATIVE Urine urobilinogen measurement by automated test strip (mass/volume) 1 mg/dL NORMAL Urine leukocyte esterase detection by dipstick 1+ NEGATIVE Automated urine sediment erythrocyte cou nt by microscopy (number/high power field) NONE NRG Automated urine sediment leukocyte count by microscopy (number/high power field) [HPF] NRG Bacteria detection in urine sediment by light microsco py FEW NRG Squamous epithelial cells detection in u rine sediment by light microscopy 0-2 NRG Crystals detection in urine sediment by light microsco py NONE NRG Casts detection in urine sediment by light microscopy NONE NRG Mucus detection in urine sediment by light microscopy NEGATIVE NRG Complete urinalysis with reflex to culture NO NRG Complete blood count (CBC) with automate d white blood cell (WBC) differential - 04/12/17 19:50 Blood leukocytes automated count (number/volume) 10.4 10*3/uL 4.3-11.0 Blood erythrocytes automated count (number/volume) 4.73 10*6/uL 4.35-5.85 Venous blood hemoglobin measurement (mass/volume) 14.6 g/dL 11.5-16.0 Blood hematocrit (volume fraction) 44 % 35-52 Automated erythrocyte mean corpuscular volume 94 [ foz_us] 80-99 Automated erythrocyte mean corpuscular h emoglobin (mass per erythrocyte) 31 pg 25-34 Automated erythrocyte mean corpuscular h emoglobin concentration measurement (mass/volume) 33 g/dL 32-36 Automated erythrocyte distribution width ratio 12. 8 % 10.0- 14.5 Automated blood platelet count (count/volume) 371 10*3/uL [...] 10*3 1.0-4.0 Blood monocytes automated count (number/volume) 0. 6 10*3 0.0-1.0 Automated eosinophil count 1.1 10*3/uL 0 .0-0.3 Automated blood basophil count (count/volume) 0.1 10*3/uL 0.0-0.1 Erythrocyte sedimentation rate by renetta gren method - 04/12/17 19:50 Erythrocyte sedimentation rate by westergren method 6 mm 0- 20 Comprehensive metabolic panel - 04/12/17 19:50 Serum or plasma sodium measurement (moles/volume) 143 mmol/L 135-145 Serum or plasma potassium measurement (moles/volume) 3.4 mmol/L 3.6-5.0 Serum or plasma chloride measurement (moles/volume) 108 mmol/L 98-107 Carbon dioxide 24 mmol/L 21-32 Serum or plasma anion gap determination (moles/volume) 11 mmol/L 5-14 Serum or plasma urea nitrogen measurement (mass/volume ) 6 mg/dL 7-18 Serum or plasma creatinine measurement (mass/volume) 0.78 mg/dL 0.60-1.30 Serum or plasma urea nitrogen/creatinine mass ratio 8 0-20 Serum or plasma creatinine measurement w ith calculation of estimated glomerular filtration rate > NRG Serum or plasma glucose measurement (mass/volume) 98 mg/dL 70-105 Serum or plasma calcium measurement (mass/volume) 9.4 mg/dL 8.5-10.1 Serum or plasma total bilirubin measurement (mass/volu me) 0.6 mg/dL 0.1-1.0 Serum or plasma alkaline phosphatase cathy surement (enzymatic activity/volume) 98 U/L 40-136 Serum or plasma aspartate aminotransfera se measurement (enzymatic activity/volume) 19 U/L 5-34 Serum or plasma alanine aminotransferase measurement (enzymatic activity/volume) 22 U/L 0-55 Serum or plasma protein measurement (mass/volume) 7.1 g/dL 6.4-8.2 Serum or plasma albumin measurement (mass/volume) 4.3 g/dL 3.2-4.5 Lipase - 04/12/17 19:50 Lipase 24 U/L 8-78 Serum or plasma C reactive protein measu rement (mass/volume) - 04/12/17 19:50 Serum or plasma C reactive protein measurement (mass/v olume) 0.28 mg/dL 0.00-0.50 Complete blood count (CBC) with automate d white blood cell (WBC) differential - 04/24/17 22:06 Blood leukocytes automated count (number/volume) 11.4 10*3/uL 4.3-11.0 Blood erythrocytes automated count (number/volume) 4.11 10*6/uL 4.35-5.85 Venous blood hemoglobin measurement (mass/volume) 13.0 g/dL 11.5-16.0 Blood hematocrit (volume fraction) 38 % 35-52 Automated erythrocyte mean corpuscular volume 92 [ foz_us] 80-99 Automated erythrocyte mean corpuscular h emoglobin (mass per erythrocyte) 32 pg 25-34 Automated erythrocyte mean corpuscular h emoglobin concentration measurement (mass/volume) 34 g/dL 32-36 Automated erythrocyte distribution width ratio 12. 9 % 10.0- 14.5 Automated blood platelet count (count/volume) 331 10*3/uL [...] 10*3 1.0-4.0 Blood monocytes automated count (number/volume) 0. 8 10*3 0.0-1.0 Automated eosinophil count 0.6 10*3/uL 0 .0-0.3 Automated blood basophil count (count/volume) 0.1 10*3/uL 0.0-0.1 Comprehensive metabolic panel - 04/24/17 22:06 Serum or plasma sodium measurement (moles/volume) 143 mmol/L 135-145 Serum or plasma potassium measurement (moles/volume) 3.3 mmol/L 3.6-5.0 Serum or plasma chloride measurement (moles/volume) 109 mmol/L 98-107 Carbon dioxide 21 mmol/L 21-32 Serum or plasma anion gap determination (moles/volume) 13 mmol/L 5-14 Serum or plasma urea nitrogen measurement (mass/volume ) 6 mg/dL 7-18 Serum or plasma creatinine measurement (mass/volume) 0.79 mg/dL 0.60-1.30 Serum or plasma urea nitrogen/creatinine mass ratio 8 NRG Serum or plasma creatinine measurement w ith calculation of estimated glomerular filtration rate > NRG Serum or plasma glucose measurement (mass/volume) 96 mg/dL 70-105 Serum or plasma calcium measurement (mass/volume) 9.1 mg/dL 8.5-10.1 Serum or plasma total bilirubin measurement (mass/volu me) 0.4 mg/dL 0.1-1.0 Serum or plasma alkaline phosphatase cathy surement (enzymatic activity/volume) 81 U/L 40-136 Serum or plasma aspartate aminotransfera se measurement (enzymatic activity/volume) 18 U/L 5-34 Serum or plasma alanine aminotransferase measurement (enzymatic activity/volume) 20 U/L 0-55 Serum or plasma protein measurement (mass/volume) 6.4 g/dL 6.4-8.2 Serum or plasma albumin measurement (mass/volume) 3.9 g/dL 3.2-4.5 Serum or plasma C reactive protein measu rement (mass/volume) - 04/24/17 22:06 Serum or plasma C reactive protein measurement (mass/v olume) 0.44 mg/dL 0.00-0.50 Complete urinalysis with reflex to cultu re - 04/24/17 22:33 Urine color determination YELLOW NRG Urine clarity determination CLEAR NR G Urine pH measurement by test strip 6.5 5-9 Specific gravity of urine by test strip 1.010 1.016-1.022 Urine protein assay by test strip, semi-quantitative NEGATIVE NEGATIVE Urine glucose detection by automated test strip NE GATIVE NEGATIVE Erythrocytes detection in urine sediment by light micr oscopy NEGATIVE NEGATIVE Urine ketones detection by automated test strip NE GATIVE NEGATIVE Urine nitrite detection by test strip NEGATIVE NEGATIVE Urine total bilirubin detection by test strip NEGA TIVE NEGATIVE Urine urobilinogen measurement by automated test strip (mass/volume) NORMAL NORMAL Urine leukocyte esterase detection by dipstick 2+ NEGATIVE Automated urine sediment erythrocyte cou nt by microscopy (number/high power field) NONE NRG Automated urine sediment leukocyte count by microscopy (number/high power field) [HPF] NRG Bacteria detection in urine sediment by light microsco py FEW NRG Squamous epithelial cells detection in u rine sediment by light microscopy 2-5 NRG Crystals detection in urine sediment by light microsco py NONE NRG Casts detection in urine sediment by light microscopy NONE NRG Mucus detection in urine sediment by light microscopy NEGATIVE NRG Complete urinalysis with reflex to culture YES NRG Bacterial urine culture - 04/24/17 22:33 Bacterial urine culture [id number] NRG COLONY COUNT >100,000/ML NRG FREE TEXT ENTRY 2 MIXED GRAM POSITIVE ANA <10,00 0/ML NRG Complete urinalysis with reflex to cultu re - 04/27/17 19:45 Urine color determination YELLOW NRG Urine clarity determination CLEAR NR G Urine pH measurement by test strip 6 5-9 Specific gravity of urine by test strip 1.020 1.016-1.022 Urine protein assay by test strip, semi-quantitative NEGATIVE NEGATIVE Urine glucose detection by automated test strip NE GATIVE NEGATIVE Erythrocytes detection in urine sediment by light micr oscopy NEGATIVE NEGATIVE Urine ketones detection by automated test strip NE GATIVE NEGATIVE Urine nitrite detection by test strip NEGATIVE NEGATIVE Urine total bilirubin detection by test strip NEGA TIVE NEGATIVE Urine urobilinogen measurement by automated test strip (mass/volume) NORMAL NORMAL Urine leukocyte esterase detection by dipstick 2+ NEGATIVE Automated urine sediment erythrocyte cou nt by microscopy (number/high power field) NONE NRG Automated urine sediment leukocyte count by microscopy (number/high power field) [HPF] NRG Bacteria detection in urine sediment by light microsco py NEGATIVE NRG Squamous epithelial cells detection in u rine sediment by light microscopy 5-10 NRG Crystals detection in urine sediment by light microsco py NONE NRG Casts detection in urine sediment by light microscopy NONE NRG Mucus detection in urine sediment by light microscopy NEGATIVE NRG Complete urinalysis with reflex to culture NO NRG Renal epithelial cells detection in urin e sediment by light microscopy NONE NRG Urine drug screening test - 04/27/17 19: 45 Urine phencyclidine detection by screening method NEGATIVE NEGATIVE Urine benzodiazepines detection by screening method NEGATIVE NEGATIVE Urine cocaine detection NEGATIVE NEGATI VE Urine amphetamines detection by screening method N EGATIVE NEGATIVE Urine methamphetamine detection by screening method NEGATIVE NEGATIVE Urine cannabinoids detection by screening method N EGATIVE NEGATIVE Urine opiates detection by screening method POSITI VE NEGATIVE Urine barbiturates detection NEGATIVE N EGATIVE Screening urine tricyclic antidepressants detection NEGATIVE NEGATIVE Urine methadone detection by screening method NEGA TIVE NEGATIVE Urine oxycodone detection NEGATIVE NEGA TIVE Urine propoxyphene detection NEGATIVE N EGATIVE Complete blood count (CBC) with automate d white blood cell (WBC) differential - 04/27/17 20:05 Blood leukocytes automated count (number/volume) 11.5 10*3/uL 4.3-11.0 Blood erythrocytes automated count (number/volume) 3.72 10*6/uL 4.35-5.85 Venous blood hemoglobin measurement (mass/volume) 11.6 g/dL 11.5-16.0 Blood hematocrit (volume fraction) 35 % 35-52 Automated erythrocyte mean corpuscular volume 94 [ foz_us] 80-99 Automated erythrocyte mean corpuscular h emoglobin (mass per erythrocyte) 31 pg 25-34 Automated erythrocyte mean corpuscular h emoglobin concentration measurement (mass/volume) 33 g/dL 32-36 Automated erythrocyte distribution width ratio 12. 9 % 10.0- 14.5 Automated blood platelet count (count/volume) 323 10*3/uL [...] 10*3 1.0-4.0 Blood monocytes automated count (number/volume) 0. 7 10*3 0.0-1.0 Automated eosinophil count 0.5 10*3/uL 0 .0-0.3 Automated blood basophil count (count/volume) 0.0 10*3/uL 0.0-0.1 Comprehensive metabolic panel - 04/27/17 20:05 Serum or plasma sodium measurement (moles/volume) 141 mmol/L 135-145 Serum or plasma potassium measurement (moles/volume) 4.9 mmol/L 3.6-5.0 Serum or plasma chloride measurement (moles/volume) 110 mmol/L 98-107 Carbon dioxide 20 mmol/L 21-32 Serum or plasma anion gap determination (moles/volume) 11 mmol/L 5-14 Serum or plasma urea nitrogen measurement (mass/volume ) 5 mg/dL 7-18 Serum or plasma creatinine measurement (mass/volume) 0.79 mg/dL 0.60-1.30 Serum or plasma urea nitrogen/creatinine mass ratio 6 NRG Serum or plasma creatinine measurement w ith calculation of estimated glomerular filtration rate > NRG Serum or plasma glucose measurement (mass/volume) 102 mg/dL 70-105 Serum or plasma calcium measurement (mass/volume) 8.9 mg/dL 8.5-10.1 Serum or plasma total bilirubin measurement (mass/volu me) 0.5 mg/dL 0.1-1.0 Serum or plasma alkaline phosphatase cathy surement (enzymatic activity/volume) 79 U/L 40-136 Serum or plasma aspartate aminotransfera se measurement (enzymatic activity/volume) 42 U/L 5-34 Serum or plasma alanine aminotransferase measurement (enzymatic activity/volume) 26 U/L 0-55 Serum or plasma protein measurement (mass/volume) 6.6 g/dL 6.4-8.2 Serum or plasma albumin measurement (mass/volume) 3.7 g/dL 3.2-4.5 Serum or plasma amylase measurement (enz ymatic activity/volume) - 04/27/17 20:05 Serum or plasma amylase measurement (enzymatic activit y/volume) 95 U/L 25-125 Lipase - 04/27/17 20:05 Lipase 203 U/L 8-78 Blood CBC with ordered manual differenti al panel - 04/28/17 04:20 Blood leukocytes automated count (number/volume) 9.8 10*3/uL 4.3-11.0 Blood erythrocytes automated count (number/volume) 4.30 10*6/uL 4.35-5.85 Venous blood hemoglobin measurement (mass/volume) 13.3 g/dL 11.5-16.0 Blood hematocrit (volume fraction) 40 % 35-52 Automated erythrocyte mean corpuscular volume 92 [ foz_us] 80-99 Automated erythrocyte mean corpuscular h emoglobin (mass per erythrocyte) 31 pg 25-34 Automated erythrocyte mean corpuscular h emoglobin concentration measurement (mass/volume) 34 g/dL 32-36 Automated erythrocyte distribution width ratio 12. 7 % 10.0- 14.5 Automated blood platelet count (count/volume) 346 10*3/uL [...] 10*3 1.0-4.0 Blood monocytes automated count (number/volume) 0. 1 10*3 0.0-1.0 Automated eosinophil count 0.0 10*3/uL 0 .0-0.3 Automated blood basophil count (count/volume) 0.0 10*3/uL 0.0-0.1 Manual blood segmented neutrophils/100 leukocytes 79 % NRG Blood band neutrophils/100 leukocytes 10 % NRG Manual blood lymphocytes/100 leukocytes 11 % NRG Blood erythrocyte morphology finding identification [facility] Comprehensive metabolic panel - 04/28/17 04:20 Serum or plasma sodium measurement (moles/volume) 144 mmol/L 135-145 Serum or plasma potassium measurement (moles/volume) 3.1 mmol/L 3.6-5.0 Serum or plasma chloride measurement (moles/volume) 110 mmol/L 98-107 Carbon dioxide 22 mmol/L 21-32 Serum or plasma anion gap determination (moles/volume) 12 mmol/L 5-14 Serum or plasma urea nitrogen measurement (mass/volume ) 8 mg/dL 7-18 Serum or plasma creatinine measurement (mass/volume) 0.77 mg/dL 0.60-1.30 Serum or plasma urea nitrogen/creatinine mass ratio 10 NRG Serum or plasma creatinine measurement w ith calculation of estimated glomerular filtration rate > NRG Serum or plasma glucose measurement (mass/volume) 167 mg/dL 70-105 Serum or plasma calcium measurement (mass/volume) 9.1 mg/dL 8.5-10.1 Serum or plasma total bilirubin measurement (mass/volu me) 0.4 mg/dL 0.1-1.0 Serum or plasma alkaline phosphatase cathy surement (enzymatic activity/volume) 91 U/L 40-136 Serum or plasma aspartate aminotransfera se measurement (enzymatic activity/volume) 18 U/L 5-34 Serum or plasma alanine aminotransferase measurement (enzymatic activity/volume) 22 U/L 0-55 Serum or plasma protein measurement (mass/volume) 6.3 g/dL 6.4-8.2 Serum or plasma albumin measurement (mass/volume) 3.9 g/dL 3.2-4.5 Serum or plasma amylase measurement (enz ymatic activity/volume) - 04/28/17 04:20 Serum or plasma amylase measurement (enzymatic activit y/volume) 62 U/L 25-125 Lipase - 04/28/17 04:20 Lipase 49 U/L 8-78 Complete blood count (CBC) with automate d white blood cell (WBC) differential - 04/29/17 05:42 Blood leukocytes automated count (number/volume) 17.8 10*3/uL 4.3-11.0 Blood erythrocytes automated count (number/volume) 4.15 10*6/uL 4.35-5.85 Venous blood hemoglobin measurement (mass/volume) 12.9 g/dL 11.5-16.0 Blood hematocrit (volume fraction) 39 % 35-52 Automated erythrocyte mean corpuscular volume 93 [ foz_us] 80-99 Automated erythrocyte mean corpuscular h emoglobin (mass per erythrocyte) 31 pg 25-34 Automated erythrocyte mean corpuscular h emoglobin concentration measurement (mass/volume) 34 g/dL 32-36 Automated erythrocyte distribution width ratio 12. 8 % 10.0- 14.5 Automated blood platelet count (count/volume) 351 10*3/uL [...] 10*3 1.0-4.0 Blood monocytes automated count (number/volume) 0. 5 10*3 0.0-1.0 Automated eosinophil count 0.0 10*3/uL 0 .0-0.3 Automated blood basophil count (count/volume) 0.0 10*3/uL 0.0-0.1 Comprehensive metabolic panel - 04/29/17 05:42 Serum or plasma sodium measurement (moles/volume) 145 mmol/L 135-145 Serum or plasma potassium measurement (moles/volume) 3.4 mmol/L 3.6-5.0 Serum or plasma chloride measurement (moles/volume) 111 mmol/L 98-107 Carbon dioxide 26 mmol/L 21-32 Serum or plasma anion gap determination (moles/volume) 8 mmol/L 5-14 Serum or plasma urea nitrogen measurement (mass/volume ) 8 mg/dL 7-18 Serum or plasma creatinine measurement (mass/volume) 0.75 mg/dL 0.60-1.30 Serum or plasma urea nitrogen/creatinine mass ratio 11 NRG Serum or plasma creatinine measurement w ith calculation of estimated glomerular filtration rate > NRG Serum or plasma glucose measurement (mass/volume) 147 mg/dL 70-105 Serum or plasma calcium measurement (mass/volume) 9.0 mg/dL 8.5-10.1 Serum or plasma total bilirubin measurement (mass/volu me) 0.4 mg/dL 0.1-1.0 Serum or plasma alkaline phosphatase cathy surement (enzymatic activity/volume) 76 U/L 40-136 Serum or plasma aspartate aminotransfera se measurement (enzymatic activity/volume) 17 U/L 5-34 Serum or plasma alanine aminotransferase measurement (enzymatic activity/volume) 22 U/L 0-55 Serum or plasma protein measurement (mass/volume) 5.8 g/dL 6.4-8.2 Serum or plasma albumin measurement (mass/volume) 3.5 g/dL 3.2-4.5 Blood manual differential performed dete ction - 04/29/17 05:42 Blood monocytes/100 leukocytes 1 % NRG Manual blood segmented neutrophils/100 leukocytes 91 % NRG Manual blood lymphocytes/100 leukocytes 8 % NRG Blood erythrocyte morphology finding identification [facility] Automated blood complete blood count (he mogram) panel - 04/30/17 05:40 Blood leukocytes automated count (number/volume) 20.1 10*3/uL 4.3-11.0 Blood erythrocytes automated count (number/volume) 4.18 10*6/uL 4.35-5.85 Venous blood hemoglobin measurement (mass/volume) 13.0 g/dL 11.5-16.0 Blood hematocrit (volume fraction) 39 % 35-52 Automated erythrocyte mean corpuscular volume 94 [ foz_us] 80-99 Automated erythrocyte mean corpuscular h emoglobin (mass per erythrocyte) 31 pg 25-34 Automated erythrocyte mean corpuscular h emoglobin concentration measurement (mass/volume) 33 g/dL 32-36 Automated erythrocyte distribution width ratio 13. 1 % 10.0- 14.5 Automated blood platelet count (count/volume) 310 10*3/uL [...] 5-14 Serum or plasma urea nitrogen measurement (mass/volume ) 10 mg/dL 7-18 Serum or plasma creatinine measurement (mass/volume) 0.71 mg/dL 0.60-1.30 Serum or plasma urea nitrogen/creatinine mass ratio 14 NRG Serum or plasma creatinine measurement w ith calculation of estimated glomerular filtration rate > NRG Serum or plasma glucose measurement (mass/volume) 130 mg/dL 70-105 Serum or plasma calcium measurement (mass/volume) 8.7 mg/dL 8.5-10.1 Serum or plasma total bilirubin measurement (mass/volu me) 0.5 mg/dL 0.1-1.0 Serum or plasma alkaline phosphatase cathy surement (enzymatic activity/volume) 73 U/L 40-136 Serum or plasma aspartate aminotransfera se measurement (enzymatic activity/volume) 25 U/L 5-34 Serum or plasma alanine aminotransferase measurement (enzymatic activity/volume) 36 U/L 0-55 Serum or plasma protein measurement (mass/volume) 5.6 g/dL 6.4-8.2 Serum or plasma albumin measurement (mass/volume) 3.4 g/dL 3.2-4.5 Complete blood count (CBC) with automate d white blood cell (WBC) differential - 06/18/17 22:26 Blood leukocytes automated count (number/volume) 10.2 10*3/uL 4.3-11.0 Blood erythrocytes automated count (number/volume) 4.68 10*6/uL 4.35-5.85 Venous blood hemoglobin measurement (mass/volume) 14.4 g/dL 11.5-16.0 Blood hematocrit (volume fraction) 43 % 35-52 Automated erythrocyte mean corpuscular volume 92 [ foz_us] 80-99 Automated erythrocyte mean corpuscular h emoglobin (mass per erythrocyte) 31 pg 25-34 Automated erythrocyte mean corpuscular h emoglobin concentration measurement (mass/volume) 34 g/dL 32-36 Automated erythrocyte distribution width ratio 12. 8 % 10.0- 14.5 Automated blood platelet count (count/volume) 373 10*3/uL [...] 10*3 1.0-4.0 Blood monocytes automated count (number/volume) 0. 6 10*3 0.0-1.0 Automated eosinophil count 0.5 10*3/uL 0 .0-0.3 Automated blood basophil count (count/volume) 0.0 10*3/uL 0.0-0.1 Comprehensive metabolic panel - 06/18/17 22:26 Serum or plasma sodium measurement (moles/volume) 143 mmol/L 135-145 Serum or plasma potassium measurement (moles/volume) 3.3 mmol/L 3.6-5.0 Serum or plasma chloride measurement (moles/volume) 107 mmol/L 98-107 Carbon dioxide 24 mmol/L 21-32 Serum or plasma anion gap determination (moles/volume) 12 mmol/L 5-14 Serum or plasma urea nitrogen measurement (mass/volume ) 6 mg/dL 7-18 Serum or plasma creatinine measurement (mass/volume) 0.73 mg/dL 0.60-1.30 Serum or plasma urea nitrogen/creatinine mass ratio 8 NRG Serum or plasma creatinine measurement w ith calculation of estimated glomerular filtration rate > NRG Serum or plasma glucose measurement (mass/volume) 84 mg/dL 70-105 Serum or plasma calcium measurement (mass/volume) 9.6 mg/dL 8.5-10.1 Serum or plasma total bilirubin measurement (mass/volu me) 0.2 mg/dL 0.1-1.0 Serum or plasma alkaline phosphatase cathy surement (enzymatic activity/volume) 90 U/L 40-136 Serum or plasma aspartate aminotransfera se measurement (enzymatic activity/volume) 19 U/L 5-34 Serum or plasma alanine aminotransferase measurement (enzymatic activity/volume) 20 U/L 0-55 Serum or plasma protein measurement (mass/volume) 6.8 g/dL 6.4-8.2 Serum or plasma albumin measurement (mass/volume) 4.1 g/dL 3.2-4.5 Serum or plasma C reactive protein measu rement (mass/volume) - 06/18/17 22:26 Serum or plasma C reactive protein measurement (mass/v olume) 0.26 mg/dL 0.00-0.50 Erythrocyte sedimentation rate by renetta gren method - 06/18/17 22:26 Erythrocyte sedimentation rate by westergren method 8 mm 0- 20 Complete blood count (CBC) with automate d white blood cell (WBC) differential - 07/05/17 00:23 Blood leukocytes automated count (number/volume) 7.7 10*3/uL 4.3-11.0 Blood erythrocytes automated count (number/volume) 3.89 10*6/uL 4.35-5.85 Venous blood hemoglobin measurement (mass/volume) 12.0 g/dL 11.5-16.0 Blood hematocrit (volume fraction) 36 % 35-52 Automated erythrocyte mean corpuscular volume 92 [ foz_us] 80-99 Automated erythrocyte mean corpuscular h emoglobin (mass per erythrocyte) 31 pg 25-34 Automated erythrocyte mean corpuscular h emoglobin concentration measurement (mass/volume) 33 g/dL 32-36 Automated erythrocyte distribution width ratio 12. 3 % 10.0- 14.5 Automated blood platelet count (count/volume) 318 10*3/uL [...] 10*3 1.0-4.0 Blood monocytes automated count (number/volume) 0. 7 10*3 0.0-1.0 Automated eosinophil count 0.5 10*3/uL 0 .0-0.3 Automated blood basophil count (count/volume) 0.0 10*3/uL 0.0-0.1 Comprehensive metabolic panel - 07/05/17 00:23 Serum or plasma sodium measurement (moles/volume) 143 mmol/L 135-145 Serum or plasma potassium measurement (moles/volume) 3.5 mmol/L 3.6-5.0 Serum or plasma chloride measurement (moles/volume) 108 mmol/L 98-107 Carbon dioxide 23 mmol/L 21-32 Serum or plasma anion gap determination (moles/volume) 12 mmol/L 5-14 Serum or plasma urea nitrogen measurement (mass/volume ) 5 mg/dL 7-18 Serum or plasma creatinine measurement (mass/volume) 0.67 mg/dL 0.60-1.30 Serum or plasma urea nitrogen/creatinine mass ratio 7 NRG Serum or plasma creatinine measurement w ith calculation of estimated glomerular filtration rate > NRG Serum or plasma glucose measurement (mass/volume) 116 mg/dL 70-105 Serum or plasma calcium measurement (mass/volume) 9.3 mg/dL 8.5-10.1 Serum or plasma total bilirubin measurement (mass/volu me) 0.4 mg/dL 0.1-1.0 Serum or plasma alkaline phosphatase cathy surement (enzymatic activity/volume) 87 U/L 40-136 Serum or plasma aspartate aminotransfera se measurement (enzymatic activity/volume) 16 U/L 5-34 Serum or plasma alanine aminotransferase measurement (enzymatic activity/volume) 15 U/L 0-55 Serum or plasma protein measurement (mass/volume) 6.5 g/dL 6.4-8.2 Serum or plasma albumin measurement (mass/volume) 3.5 g/dL 3.2-4.5 Serum or plasma troponin i.cardiac measu rement (mass/volume) - 07/05/17 00:23 Serum or plasma troponin i.cardiac measurement (mass/v olume) < ng/mL <0.30 Serum or plasma C reactive protein measu rement (mass/volume) - 07/05/17 00:23 Serum or plasma C reactive protein measurement (mass/v olume) 6.71 mg/dL 0.00-0.50 Influenza virus A and B antigen detectio n - 01/31/18 18:51 CALL POSITIVES (F1 HELP) [facility] FLU RESULT POSITIVE FOR INFLUENZA B ANT IGEN, NEG FOR A ANTIGEN, BY IA NRG Complete urinalysis with reflex to cultu re - 05/17/18 00:03 Urine color determination YELLOW NRG Urine clarity determination CLEAR NR G Urine pH measurement by test strip 6 5-9 Specific gravity of urine by test strip 1.015 1.016-1.022 Urine protein assay by test strip, semi-quantitative NEGATIVE NEGATIVE Urine glucose detection by automated test strip NE GATIVE NEGATIVE Erythrocytes detection in urine sediment by light micr oscopy NEGATIVE NEGATIVE Urine ketones detection by automated test strip NE GATIVE NEGATIVE Urine nitrite detection by test strip NEGATIVE NEGATIVE Urine total bilirubin detection by test strip NEGA TIVE NEGATIVE Urine urobilinogen measurement by automated test strip (mass/volume) NORMAL NORMAL Urine leukocyte esterase detection by dipstick 1+ NEGATIVE Automated urine sediment erythrocyte cou nt by microscopy (number/high power field) NONE NRG Automated urine sediment leukocyte count by microscopy (number/high power field) NONE NRG Bacteria detection in urine sediment by light microsco py NEGATIVE NRG Squamous epithelial cells detection in u rine sediment by light microscopy 0-2 NRG Crystals detection in urine sediment by light microsco py NONE NRG Casts detection in urine sediment by light microscopy NONE NRG Mucus detection in urine sediment by light microscopy NEGATIVE NRG Complete urinalysis with reflex to culture NO NRG Complete blood count (CBC) with automate d white blood cell (WBC) differential - 05/17/18 00:05 Blood leukocytes automated count (number/volume) 10.1 10*3/uL 4.3-11.0 Blood erythrocytes automated count (number/volume) 3.84 10*6/uL 4.35-5.85 Venous blood hemoglobin measurement (mass/volume) 12.1 g/dL 11.5-16.0 Blood hematocrit (volume fraction) 36 % 35-52 Automated erythrocyte mean corpuscular volume 94 [ foz_us] 80-99 Automated erythrocyte mean corpuscular h emoglobin (mass per erythrocyte) 32 pg 25-34 Automated erythrocyte mean corpuscular h emoglobin concentration measurement (mass/volume) 34 g/dL 32-36 Automated erythrocyte distribution width ratio 12. 9 % 10.0- 14.5 Automated blood platelet count (count/volume) 435 10*3/uL [...] 10*3 1.0-4.0 Blood monocytes automated count (number/volume) 0. 7 10*3 0.0-1.0 Automated eosinophil count 0.4 10*3/uL 0 .0-0.3 Automated blood basophil count (count/volume) 0.0 10*3/uL 0.0-0.1 Serum or plasma C reactive protein measu rement (mass/volume) - 05/17/18 00:05 Serum or plasma C reactive protein measurement (mass/v olume) 0.12 mg/dL 0.00-0.50 Comprehensive metabolic panel - 05/17/18 00:05 Serum or plasma sodium measurement (moles/volume) 141 mmol/L 135-145 Serum or plasma potassium measurement (moles/volume) 3.3 mmol/L 3.6-5.0 Serum or plasma chloride measurement (moles/volume) 107 mmol/L 98-107 Carbon dioxide 24 mmol/L 21-32 Serum or plasma anion gap determination (moles/volume) 10 mmol/L 5-14 Serum or plasma urea nitrogen measurement (mass/volume ) 10 mg/dL 7-18 Serum or plasma creatinine measurement (mass/volume) 0.98 mg/dL 0.60-1.30 Serum or plasma urea nitrogen/creatinine mass ratio 10 NRG Serum or plasma creatinine measurement w ith calculation of estimated glomerular filtration rate > NRG Serum or plasma glucose measurement (mass/volume) 140 mg/dL 70-105 Serum or plasma calcium measurement (mass/volume) 9.4 mg/dL 8.5-10.1 Serum or plasma total bilirubin measurement (mass/volu me) 0.4 mg/dL 0.1-1.0 Serum or plasma alkaline phosphatase cathy surement (enzymatic activity/volume) 77 U/L 40-136 Serum or plasma aspartate aminotransfera se measurement (enzymatic activity/volume) 21 U/L 5-34 Serum or plasma alanine aminotransferase measurement (enzymatic activity/volume) 18 U/L 0-55 Serum or plasma protein measurement (mass/volume) 7.1 g/dL 6.4-8.2 Serum or plasma albumin measurement (mass/volume) 4.0 g/dL 3.2-4.5 Lipase - 05/17/18 00:05 Lipase 39 U/L 8-78 Erythrocyte sedimentation rate by renetta gren method - 05/17/18 00:05 Erythrocyte sedimentation rate by westergren method 14 mm 0- 20 Complete blood count (CBC) with automate d white blood cell (WBC) differential - 07/05/18 21:36 Blood leukocytes automated count (number/volume) 8.8 10*3/uL 4.3-11.0 Blood erythrocytes automated count (number/volume) 3.84 10*6/uL 4.35-5.85 Venous blood hemoglobin measurement (mass/volume) 12.0 g/dL 11.5-16.0 Blood hematocrit (volume fraction) 36 % 35-52 Automated erythrocyte mean corpuscular volume 92 [ foz_us] 80-99 Automated erythrocyte mean corpuscular h emoglobin (mass per erythrocyte) 31 pg 25-34 Automated erythrocyte mean corpuscular h emoglobin concentration measurement (mass/volume) 34 g/dL 32-36 Automated erythrocyte distribution width ratio 13. 3 % 10.0- 14.5 Automated blood platelet count (count/volume) 383 10*3/uL 130-400 Automated blood platelet mean volume measurement 8.1 [foz_us] 7.4-10.4 Automated blood neutrophils/100 leukocytes 34 % 42-75 Automated blood lymphocytes/100 leukocytes 44 % 12-44 Blood monocytes/100 leukocytes 6 % 0-12 Automated blood eosinophils/100 leukocytes 15 % 0-10 Automated blood basophils/100 leukocytes 1 % 0-10 Blood neutrophils automated count (number/volume) 3.0 10*3 1.8-7.8 Blood lymphocytes automated count (number/volume) 3.9 10*3 1.0-4.0 Blood monocytes automated count (number/volume) 0. 5 10*3 0.0-1.0 Automated eosinophil count 1.3 10*3/uL 0 .0-0.3 Automated blood basophil count (count/volume) 0.0 10*3/uL 0.0-0.1 Serum or plasma choriogonadotropin (preg melquiades test) detection - 07/05/18 21:36 Serum or plasma choriogonadotropin ( test) de tection NEGATIVE NEGATIVE Comprehensive metabolic panel - 07/05/18 21:36 Serum or plasma sodium measurement (moles/volume) 140 mmol/L 135-145 Serum or plasma potassium measurement (moles/volume) 2.9 mmol/L 3.6-5.0 Serum or plasma chloride measurement (moles/volume) 107 mmol/L 98-107 Carbon dioxide 23 mmol/L 21-32 Serum or plasma anion gap determination (moles/volume) 10 mmol/L 5-14 Serum or plasma urea nitrogen measurement (mass/volume ) 9 mg/dL 7-18 Serum or plasma creatinine measurement (mass/volume) 0.94 mg/dL 0.60-1.30 Serum or plasma urea nitrogen/creatinine mass ratio 10 NRG Serum or plasma creatinine measurement w ith calculation of estimated glomerular filtration rate > NRG Serum or plasma glucose measurement (mass/volume) 111 mg/dL 70-105 Serum or plasma calcium measurement (mass/volume) 9.2 mg/dL 8.5-10.1 Serum or plasma total bilirubin measurement (mass/volu me) 0.4 mg/dL 0.1-1.0 Serum or plasma alkaline phosphatase cathy surement (enzymatic activity/volume) 70 U/L 40-136 Serum or plasma aspartate aminotransfera se measurement (enzymatic activity/volume) 22 U/L 5-34 Serum or plasma alanine aminotransferase measurement (enzymatic activity/volume) 22 U/L 0-55 Serum or plasma protein measurement (mass/volume) 7.3 g/dL 6.4-8.2 Serum or plasma albumin measurement (mass/volume) 4.0 g/dL 3.2-4.5 CALCIUM CORRECTED 9.2 mg/dL 8.5-10.1 Serum or plasma amylase measurement (enz ymatic activity/volume) - 07/05/18 21:36 Serum or plasma amylase measurement (enzymatic activit y/volume) 41 U/L 25-125 Lipase - 07/05/18 21:36 Lipase 20 U/L 8-78 Blood manual differential performed dete ction - 07/05/18 21:36 Blood monocytes/100 leukocytes 5 % NRG Manual blood segmented neutrophils/100 leukocytes 37 % NRG Blood band neutrophils/100 leukocytes 0 % NRG Manual blood lymphocytes/100 leukocytes 40 % NRG Manual eosinophils/100 leukocytes in nose 18 % NRG Manual blood basophils/100 leukocytes 0 % NRG Blood erythrocyte morphology finding identification NORMAL NRG Complete urinalysis with reflex to cultu re - 07/05/18 21:47 Urine color determination YELLOW NRG Urine clarity determination CLEAR NR G Urine pH measurement by test strip 5 5-9 Specific gravity of urine by test strip 1.025 1.016-1.022 Urine protein assay by test strip, semi-quantitative 1+ NEGATIVE Urine glucose detection by automated test strip NE GATIVE NEGATIVE Erythrocytes detection in urine sediment by light micr oscopy 3+ NEGATIVE Urine ketones detection by automated test strip NE GATIVE NEGATIVE Urine nitrite detection by test strip NEGATIVE NEGATIVE Urine total bilirubin detection by test strip NEGA TIVE NEGATIVE Urine urobilinogen measurement by automated test strip (mass/volume) NORMAL NORMAL Urine leukocyte esterase detection by dipstick 3+ NEGATIVE Automated urine sediment erythrocyte cou nt by microscopy (number/high power field) [HPF] NRG Automated urine sediment leukocyte count by microscopy (number/high power field) [HPF] NRG Bacteria detection in urine sediment by light microsco py FEW NRG Squamous epithelial cells detection in u rine sediment by light microscopy 10-25 NRG Crystals detection in urine sediment by light microsco py NONE NRG Casts detection in urine sediment by light microscopy NONE NRG Mucus detection in urine sediment by light microscopy LARGE NRG Complete urinalysis with reflex to culture YES NRG Bacterial urine culture - 07/05/18 21:47 Bacterial urine culture SEE REPORT NRG COLONY COUNT . NRG CBC With Platelet and Differential - 11/11 17:05 Absolute Basophils 0.03 10*3/uL 0.00-0.2 0 Absolute Eosinophils 0.36 10*3/uL 0.00-0 .50 Absolute Lymphocytes 3.66 10*3/uL 0.80-3 .30 Absolute Monocytes 0.69 10*3/uL 0.30-1.0 0 Absolute Neutrophils 5.47 10*3/uL 1.90-7 .00 Basophils 0 % 0-2 Eosinophils 4 % 0-4 HCT 39.1 % 37.0-47.0 HGB 13.1 g/dL 12.0-16.0 Immature Granulocytes 0.5 % 0.0-1.0 Lymphocytes 36 % 20-46 MCH 31.3 pg 27.0-32.0 MCHC 33.5 g/dL 32.0-36.0 MCV 93.3 fL 82.0-99.0 Monocytes 7 % 4-11 MPV 8.9 fL 9.4-12.4 Neutrophils 53 % 51-75 Nucleated RBC Automated 0.0 /100 WBC Platelet Count 310 K/uL 150-400 RBC 4.19 10*6/uL 4.00-5.20 RDW 13.5 % 11.5-14.5 WBC 10.3 K/uL 4.8-10.8 Comprehensive Metabolic Panel (CMP) - 17:05 Albumin 3.7 g/dL 3.5-4.8 Alkaline Phosphatase 71 U/L 26-104 ALT (SGPT) 40 U/L 14-54 Anion Gap 9 mEq/L 3-20 AST (SGOT) 33 U/L 15-41 Bilirubin Total 0.9 mg/dL 0.2-1.2 BUN 8 mg/dL 4-20 Calcium 9.3 mg/dL 8.6-10.0 Chloride 104 mEq/L 99-109 CO2 24 mEq/L 22-32 Creatinine 0.79 mg/dL 0.44-1.03 Globulin 3.6 g/dL 1.9-4.3 Glucose 122 mg/dL 70-100 Potassium 3.1 mEq/L 3.6-5.1 Protein 7.3 g/dL 6.1-7.9 Sodium 137 mEq/L 136-144 eGFR - 07/25/18 17:05 eGFR >60 mL/min >60 Troponin - 07/25/18 17:05 Troponin <0.05 ng/mL <0.06 Urinalysis with reflex microscopic - 11/11 18:55 Appearance Clear NA Bilirubin Negative NA Negative Blood Negative NA Negative Color Straw NA Glucose, Urine Negative Negative Ketones Negative Negative Leukocyte Esterase Pos 1+ NA Negative Nitrites Negative NA Negative pH 5.0 NA 5.0-8.0 Protein Negative NA Negative Specific [place] 1.005 NA 1.003-1.030 UA Collection type Clean Catch NA Urobilinogen Negative mg/dL <1.0 Urine Microscopic - 07/25/18 18:55 Bacteria Rare NA None Seen-Rare Epithelial Cells 2 /HPF RBC, Urine 0 /HPF 0-2 Urine Mucus Present NA WBC, Urine 5 /HPF 0-4 Complete blood count (CBC) with automate d white blood cell (WBC) differential - 09/20/18 21:15 Blood leukocytes automated count (number/volume) 8.9 10*3/uL 4.3-11.0 Blood erythrocytes automated count (number/volume) 3.86 10*6/uL 4.35-5.85 Venous blood hemoglobin measurement (mass/volume) 11.8 g/dL 11.5-16.0 Blood hematocrit (volume fraction) 36 % 35-52 Automated erythrocyte mean corpuscular volume 93 [ foz_us] 80-99 Automated erythrocyte mean corpuscular h emoglobin (mass per erythrocyte) 31 pg 25-34 Automated erythrocyte mean corpuscular h emoglobin concentration measurement (mass/volume) 33 g/dL 32-36 Automated erythrocyte distribution width ratio 12. 7 % 10.0- 14.5 Automated blood platelet count (count/volume) 392 10*3/uL 130-400 Automated blood platelet mean volume measurement 8.1 [foz_us] 7.4-10.4 Automated blood neutrophils/100 leukocytes 55 % 42-75 Automated blood lymphocytes/100 leukocytes 33 % 12-44 Blood monocytes/100 leukocytes 9 % 0-12 Automated blood eosinophils/100 leukocytes 3 % 0-10 Automated blood basophils/100 leukocytes 0 % 0-10 Blood neutrophils automated count (number/volume) 4.9 10*3 1.8-7.8 Blood lymphocytes automated count (number/volume) 2.9 10*3 1.0-4.0 Blood monocytes automated count (number/volume) 0. 8 10*3 0.0-1.0 Automated eosinophil count 0.3 10*3/uL 0 .0-0.3 Automated blood basophil count (count/volume) 0.0 10*3/uL 0.0-0.1 Comprehensive metabolic panel - 09/20/18 21:15 Serum or plasma sodium measurement (moles/volume) 140 mmol/L 135-145 Serum or plasma potassium measurement (moles/volume) 3.3 mmol/L 3.6-5.0 Serum or plasma chloride measurement (moles/volume) 103 mmol/L 98-107 Carbon dioxide 26 mmol/L 21-32 Serum or plasma anion gap determination (moles/volume) 11 mmol/L 5-14 Serum or plasma urea nitrogen measurement (mass/volume ) 9 mg/dL 7-18 Serum or plasma creatinine measurement (mass/volume) 0.81 mg/dL 0.60-1.30 Serum or plasma urea nitrogen/creatinine mass ratio 11 NRG Serum or plasma creatinine measurement w ith calculation of estimated glomerular filtration rate > NRG Serum or plasma glucose measurement (mass/volume) 100 mg/dL 70-105 Serum or plasma calcium measurement (mass/volume) 9.7 mg/dL 8.5-10.1 Serum or plasma total bilirubin measurement (mass/volu me) 0.6 mg/dL 0.1-1.0 Serum or plasma alkaline phosphatase cathy surement (enzymatic activity/volume) 81 U/L 40-136 Serum or plasma aspartate aminotransfera se measurement (enzymatic activity/volume) 24 U/L 5-34 Serum or plasma alanine aminotransferase measurement (enzymatic activity/volume) 28 U/L 0-55 Serum or plasma protein measurement (mass/volume) 7.6 g/dL 6.4-8.2 Serum or plasma albumin measurement (mass/volume) 4.0 g/dL 3.2-4.5 CALCIUM CORRECTED 9.7 mg/dL 8.5-10.1 Magnesium - 09/20/18 21:15 Magnesium 1.6 mg/dL 1.8-2.4 Serum or plasma creatine kinase measurem ent (enzymatic activity/volume) - 09/20/18 21:15 Serum or plasma creatine kinase measurem ent (enzymatic activity/volume) 88 U/L 29-168 Serum or plasma creatine kinase MB measu rement (enzymatic activity/volume) - 09/20/18 21:15 Serum or plasma creatine kinase MB measu rement (enzymatic activity/volume) 1.1 ng/mL <6.6 Serum or plasma troponin i.cardiac measu rement (mass/volume) - 09/20/18 21:15 Serum or plasma troponin i.cardiac measurement (mass/v olume) < ng/mL <0.30 PT panel in platelet poor plasma by coag ulation assay - 09/20/18 21:15 Prothrombin time (PT) in platelet poor plasma by coagu lation assay 12.6 s 12.2-14.7 INR in platelet poor plasma or blood by coagulation as say 1.0 0.8-1.4 Activated partial thromboplastin time (a PTT) in platelet poor plasma bycoagulation assay - 09/20/18 21:15 Activated partial thromboplastin time (a PTT) in platelet poor plasma bycoagulation assay 32 s 24-35 Fibrin D-dimer FEU measurement in platel et poor plasma (mass/volume) - 09/20/18 21:15 Fibrin D-dimer FEU measurement in platelet poor plasma (mass/volume) 0.74 ug/mL 0.00-0.49 Myoglobin, serum - 09/20/18 21:15 Myoglobin, serum 29.3 ng/mL 10.0-92.0 CBC With Platelet and Differential - 11:45 Absolute Basophils 0.01 10*3/uL 0.00-0.2 0 Absolute Eosinophils 0.05 10*3/uL 0.00-0 .50 Absolute Lymphocytes 1.08 10*3/uL 0.80-3 .30 Absolute Monocytes 0.86 10*3/uL 0.30-1.0 0 Absolute Neutrophils 4.93 10*3/uL 1.90-7 .00 Basophils 0 % 0-2 Eosinophils 1 % 0-4 HCT 46.7 % 37.0-47.0 HGB 15.4 g/dL 12.0-16.0 Immature Granulocytes 0.6 % 0.0-1.0 Lymphocytes 16 % 20-46 MCH 30.6 pg 27.0-32.0 MCHC 33.0 g/dL 32.0-36.0 MCV 92.8 fL 82.0-99.0 Monocytes 12 % 4-11 MPV 9.0 fL 9.4-12.4 Neutrophils 71 % 51-75 Nucleated RBC Automated 0.0 /100 WBC Platelet Count 324 K/uL 150-400 RBC 5.03 10*6/uL 4.00-5.20 RDW 12.9 % 11.5-14.5 WBC 7.0 K/uL 4.8-10.8 Comprehensive Metabolic Panel (CMP) - 11:45 Albumin 4.6 g/dL 3.5-4.8 Alkaline Phosphatase 98 U/L 26-104 ALT (SGPT) 46 U/L 14-54 Anion Gap 13 mEq/L 3-20 AST (SGOT) 51 U/L 15-41 Bilirubin Total 0.7 mg/dL 0.2-1.2 BUN 15 mg/dL 4-20 Calcium 9.7 mg/dL 8.6-10.0 Chloride 103 mEq/L 99-109 CO2 20 mEq/L 22-32 Creatinine 1.11 mg/dL 0.44-1.03 Globulin 4.8 g/dL 1.9-4.3 Glucose 105 mg/dL 70-100 Potassium 3.7 mEq/L 3.6-5.1 Protein 9.4 g/dL 6.1-7.9 Sodium 136 mEq/L 136-144 eGFR - 10/22/18 11:45 eGFR 54 mL/min >60 Lipase - 10/22/18 11:45 Lipase 23 U/L 8-48 Creatinine Venous - 10/22/18 11:57 Creatinine Venous 1.1 mg/dL 0.4-1.0 Urinalysis with reflex microscopic - 14:13 Appearance Clear NA Bilirubin Negative NA Negative Blood Negative NA Negative Color Yellow NA Glucose, Urine Negative Negative Ketones Negative Negative Leukocyte Esterase Pos 1+ NA Negative Nitrites Negative NA Negative pH 5.0 NA 5.0-8.0 Protein Pos 1+ NA Negative Specific [place] 1.045 NA 1.003-1.030 UA Collection type Catheter NA Urobilinogen Negative mg/dL <1.0 Urine Microscopic - 10/22/18 14:13 Bacteria Moderate NA None Seen-Rare Epithelial Cells 2 /HPF Granular Casts 1 /LPF Hyaline Casts >12 /LPF 0-3 RBC, Urine 2 /HPF 0-2 Urine Mucus Present NA WBC, Urine 10 /HPF 0-4 Complete urinalysis with reflex to cultu re - 12/04/18 22:10 Urine color determination YELLOW NRG Urine clarity determination SLIGHTLY CLOUDY NRG Urine pH measurement by test strip 5 5-9 Specific gravity of urine by test strip 1.030 1.016-1.022 Urine protein assay by test strip, semi-quantitative 1+ NEGATIVE Urine glucose detection by automated test strip NE GATIVE NEGATIVE Erythrocytes detection in urine sediment by light micr oscopy NEGATIVE NEGATIVE Urine ketones detection by automated test strip NE GATIVE NEGATIVE Urine nitrite detection by test strip NEGATIVE NEGATIVE Urine total bilirubin detection by test strip NEGA TIVE NEGATIVE Urine urobilinogen measurement by automated test strip (mass/volume) NORMAL NORMAL Urine leukocyte esterase detection by dipstick 3+ NEGATIVE Automated urine sediment erythrocyte cou nt by microscopy (number/high power field) NONE NRG Automated urine sediment leukocyte count by microscopy (number/high power field) [HPF] NRG Bacteria detection in urine sediment by light microsco py TRACE NRG Squamous epithelial cells detection in u rine sediment by light microscopy 5-10 NRG Crystals detection in urine sediment by light microsco py PRESENT NRG Casts detection in urine sediment by light microscopy NONE NRG Mucus detection in urine sediment by light microscopy LARGE NRG Complete urinalysis with reflex to culture YES NRG Calcium oxalate crystals detection in ur ine sediment by light microscopy FEW NRG Urine drug screening test - 12/04/18 22: 10 Urine phencyclidine detection by screening method NEGATIVE NEGATIVE Urine benzodiazepines detection by screening method NEGATIVE NEGATIVE Urine cocaine detection NEGATIVE NEGATI VE Urine amphetamines detection by screening method N EGATIVE NEGATIVE Urine methamphetamine detection by screening method NEGATIVE NEGATIVE Urine cannabinoids detection by screening method N EGATIVE NEGATIVE Urine opiates detection by screening method NEGATI VE NEGATIVE Urine barbiturates detection NEGATIVE N EGATIVE Screening urine tricyclic antidepressants detection NEGATIVE NEGATIVE Urine methadone detection by screening method NEGA TIVE NEGATIVE Urine oxycodone detection NEGATIVE NEGA TIVE Urine propoxyphene detection NEGATIVE N EGATIVE Bacterial urine culture - 12/04/18 22:10 Bacterial urine culture SEE REPORT NRG COLONY COUNT . NRG Complete blood count (CBC) with automate d white blood cell (WBC) differential - 12/04/18 23:03 Blood leukocytes automated count (number/volume) 9.7 10*3/uL 4.3-11.0 Blood erythrocytes automated count (number/volume) 4.15 10*6/uL 4.35-5.85 Venous blood hemoglobin measurement (mass/volume) 12.5 g/dL 11.5-16.0 Blood hematocrit (volume fraction) 38 % 35-52 Automated erythrocyte mean corpuscular volume 92 [ foz_us] 80-99 Automated erythrocyte mean corpuscular h emoglobin (mass per erythrocyte) 30 pg 25-34 Automated erythrocyte mean corpuscular h emoglobin concentration measurement (mass/volume) 33 g/dL 32-36 Automated erythrocyte distribution width ratio 13. 2 % 10.0- 14.5 Automated blood platelet count (count/volume) 371 10*3/uL 130-400 Automated blood platelet mean volume measurement 8.6 [foz_us] 7.4-10.4 Automated blood neutrophils/100 leukocytes 44 % 42-75 Automated blood lymphocytes/100 leukocytes 41 % 12-44 Blood monocytes/100 leukocytes 8 % 0-12 Automated blood eosinophils/100 leukocytes 7 % 0-10 Automated blood basophils/100 leukocytes 1 % 0-10 Blood neutrophils automated count (number/volume) 4.3 10*3 1.8-7.8 Blood lymphocytes automated count (number/volume) 4.0 10*3 1.0-4.0 Blood monocytes automated count (number/volume) 0. 8 10*3 0.0-1.0 Automated eosinophil count 0.6 10*3/uL 0 .0-0.3 Automated blood basophil count (count/volume) 0.1 10*3/uL 0.0-0.1 Comprehensive metabolic panel - 12/04/18 23:03 Serum or plasma sodium measurement (moles/volume) 143 mmol/L 135-145 Serum or plasma potassium measurement (moles/volume) 3.5 mmol/L 3.6-5.0 Serum or plasma chloride measurement (moles/volume) 108 mmol/L 98-107 Carbon dioxide 23 mmol/L 21-32 Serum or plasma anion gap determination (moles/volume) 12 mmol/L 5-14 Serum or plasma urea nitrogen measurement (mass/volume ) 9 mg/dL 7-18 Serum or plasma creatinine measurement (mass/volume) 0.92 mg/dL 0.60-1.30 Serum or plasma urea nitrogen/creatinine mass ratio 10 NRG Serum or plasma creatinine measurement w ith calculation of estimated glomerular filtration rate > NRG Serum or plasma glucose measurement (mass/volume) 109 mg/dL 70-105 Serum or plasma calcium measurement (mass/volume) 9.6 mg/dL 8.5-10.1 Serum or plasma total bilirubin measurement (mass/volu me) 0.7 mg/dL 0.1-1.0 Serum or plasma alkaline phosphatase cathy surement (enzymatic activity/volume) 78 U/L 40-136 Serum or plasma aspartate aminotransfera se measurement (enzymatic activity/volume) 30 U/L 5-34 Serum or plasma alanine aminotransferase measurement (enzymatic activity/volume) 34 U/L 0-55 Serum or plasma protein measurement (mass/volume) 7.4 g/dL 6.4-8.2 Serum or plasma albumin measurement (mass/volume) 4.1 g/dL 3.2-4.5 CALCIUM CORRECTED 9.5 mg/dL 8.5-10.1 Lipase - 12/04/18 23:03 Lipase 18 U/L 8-78 Serum or plasma C reactive protein measu rement (mass/volume) - 12/04/18 23:03 Serum or plasma C reactive protein measurement (mass/v olume) 0.32 mg/dL 0.00-0.50 Methicillin resistant Staphylococcus aur eus (MRSA) screening culture - 02/08/19 07:20 Methicillin resistant Staphylococcus aureus (MRSA) scr eening culture NEG NRG Complete blood count (CBC) with automate d white blood cell (WBC) differential - 04/12/19 18:20 Blood leukocytes automated count (number/volume) 7.7 10*3/uL 4.3-11.0 Blood erythrocytes automated count (number/volume) 3.99 10*6/uL 4.35-5.85 Venous blood hemoglobin measurement (mass/volume) 12.3 g/dL 11.5-16.0 Blood hematocrit (volume fraction) 38 % 35-52 Automated erythrocyte mean corpuscular volume 94 [ foz_us] 80-99 Automated erythrocyte mean corpuscular h emoglobin (mass per erythrocyte) 31 pg 25-34 Automated erythrocyte mean corpuscular h emoglobin concentration measurement (mass/volume) 33 g/dL 32-36 Automated erythrocyte distribution width ratio 13. 1 % 10.0- 14.5 Automated blood platelet count (count/volume) 365 10*3/uL 130-400 Automated blood platelet mean volume measurement 8.6 [foz_us] 7.4-10.4 Automated blood neutrophils/100 leukocytes 48 % 42-75 Automated blood lymphocytes/100 leukocytes 40 % 12-44 Blood monocytes/100 leukocytes 7 % 0-12 Automated blood eosinophils/100 leukocytes 5 % 0-10 Automated blood basophils/100 leukocytes 1 % 0-10 Blood neutrophils automated count (number/volume) 3.7 10*3 1.8-7.8 Blood lymphocytes automated count (number/volume) 3.1 10*3 1.0-4.0 Blood monocytes automated count (number/volume) 0. 6 10*3 0.0-1.0 Automated eosinophil count 0.4 10*3/uL 0 .0-0.3 Automated blood basophil count (count/volume) 0.0 10*3/uL 0.0-0.1 Comprehensive metabolic panel - 04/12/19 18:20 Serum or plasma sodium measurement (moles/volume) 140 mmol/L 135-145 Serum or plasma potassium measurement (moles/volume) 3.5 mmol/L 3.6-5.0 Serum or plasma chloride measurement (moles/volume) 107 mmol/L 98-107 Carbon dioxide 25 mmol/L 21-32 Serum or plasma anion gap determination (moles/volume) 8 mmol/L 5-14 Serum or plasma urea nitrogen measurement (mass/volume ) 8 mg/dL 7-18 Serum or plasma creatinine measurement (mass/volume) 0.97 mg/dL 0.60-1.30 Serum or plasma urea nitrogen/creatinine mass ratio 8 NRG Serum or plasma creatinine measurement w ith calculation of estimated glomerular filtration rate > NRG Serum or plasma glucose measurement (mass/volume) 80 mg/dL 70-105 Serum or plasma calcium measurement (mass/volume) 9.4 mg/dL 8.5-10.1 Serum or plasma total bilirubin measurement (mass/volu me) 0.5 mg/dL 0.1-1.0 Serum or plasma alkaline phosphatase cathy surement (enzymatic activity/volume) 83 U/L 40-136 Serum or plasma aspartate aminotransfera se measurement (enzymatic activity/volume) 25 U/L 5-34 Serum or plasma alanine aminotransferase measurement (enzymatic activity/volume) 33 U/L 0-55 Serum or plasma protein measurement (mass/volume) 7.3 g/dL 6.4-8.2 Serum or plasma albumin measurement (mass/volume) 4.3 g/dL 3.2-4.5 CALCIUM CORRECTED 9.2 mg/dL 8.5-10.1 Complete urinalysis with reflex to cultu re - 04/12/19 19:26 Urine color determination YELLOW NRG Urine clarity determination CLEAR NR G Urine pH measurement by test strip 6.5 5-9 Specific gravity of urine by test strip 1.005 1.016-1.022 Urine protein assay by test strip, semi-quantitative NEGATIVE NEGATIVE Urine glucose detection by automated test strip NE GATIVE NEGATIVE Erythrocytes detection in urine sediment by light micr oscopy NEGATIVE NEGATIVE Urine ketones detection by automated test strip NE GATIVE NEGATIVE Urine nitrite detection by test strip NEGATIVE NEGATIVE Urine total bilirubin detection by test strip NEGA TIVE NEGATIVE Urine urobilinogen measurement by automated test strip (mass/volume) NORMAL NORMAL Urine leukocyte esterase detection by dipstick NEG ATIVE NEGATIVE Automated urine sediment erythrocyte cou nt by microscopy (number/high power field) NONE NRG Automated urine sediment leukocyte count by microscopy (number/high power field) RARE NRG Bacteria detection in urine sediment by light microsco py TRACE NRG Squamous epithelial cells detection in u rine sediment by light microscopy 0-2 NRG Crystals detection in urine sediment by light microsco py NONE NRG Casts detection in urine sediment by light microscopy NONE NRG Mucus detection in urine sediment by light microscopy NEGATIVE NRG Complete urinalysis with reflex to culture NO NRG CULTURE, GENITAL - 05/17/19 16:05 CULTURE, GENITAL SEE NOTE NRG Complete blood count (CBC) with automate d white blood cell (WBC) differential - 04/09/20 20:30 Blood leukocytes automated count (number/volume) 9.3 10*3/uL 4.3-11.0 Blood erythrocytes automated count (number/volume) 4.29 10*6/uL 4.35-5.85 Venous blood hemoglobin measurement (mass/volume) 13.4 g/dL 11.5-16.0 Blood hematocrit (volume fraction) 40 % 35-52 Automated erythrocyte mean corpuscular volume 93 [ foz_us] 80-99 Automated erythrocyte mean corpuscular h emoglobin (mass per erythrocyte) 31 pg 25-34 Automated erythrocyte mean corpuscular h emoglobin concentration measurement (mass/volume) 34 g/dL 32-36 Automated erythrocyte distribution width ratio 12. 5 % 10.0- 14.5 Automated blood platelet count (count/volume) 387 10*3/uL 130-400 Automated blood platelet mean volume measurement 7.9 [foz_us] 7.4-10.4 Automated blood neutrophils/100 leukocytes 60 % 42-75 Automated blood lymphocytes/100 leukocytes 32 % 12-44 Blood monocytes/100 leukocytes 6 % 0-12 Automated blood eosinophils/100 leukocytes 2 % 0-10 Automated blood basophils/100 leukocytes 0 % 0-10 Blood neutrophils automated count (number/volume) 5.6 10*3 1.8-7.8 Blood lymphocytes automated count (number/volume) 3.0 10*3 1.0-4.0 Blood monocytes automated count (number/volume) 0. 6 10*3 0.0-1.0 Automated eosinophil count 0.2 10*3/uL 0 .0-0.3 Automated blood basophil count (count/volume) 0.0 10*3/uL 0.0-0.1 Comprehensive metabolic panel - 04/09/20 20:30 Serum or plasma sodium measurement (moles/volume) 139 mmol/L 135-145 Serum or plasma potassium measurement (moles/volume) 3.7 mmol/L 3.6-5.0 Serum or plasma chloride measurement (moles/volume) 105 mmol/L 98-107 Carbon dioxide 23 mmol/L 21-32 Serum or plasma anion gap determination (moles/volume) 11 mmol/L 5-14 Serum or plasma urea nitrogen measurement (mass/volume ) 12 mg/dL 7-18 Serum or plasma creatinine measurement (mass/volume) 0.82 mg/dL 0.60-1.30 Serum or plasma urea nitrogen/creatinine mass ratio 15 NRG Serum or plasma creatinine measurement w ith calculation of estimated glomerular filtration rate > NRG Serum or plasma glucose measurement (mass/volume) 121 mg/dL 70-105 Serum or plasma calcium measurement (mass/volume) 9.5 mg/dL 8.5-10.1 Serum or plasma total bilirubin measurement (mass/volu me) 0.5 mg/dL 0.1-1.0 Serum or plasma alkaline phosphatase cathy surement (enzymatic activity/volume) 75 U/L 40-136 Serum or plasma aspartate aminotransfera se measurement (enzymatic activity/volume) 16 U/L 5-34 Serum or plasma alanine aminotransferase measurement (enzymatic activity/volume) 18 U/L 0-55 Serum or plasma protein measurement (mass/volume) 7.7 g/dL 6.4-8.2 Serum or plasma albumin measurement (mass/volume) 4.3 g/dL 3.2-4.5 CALCIUM CORRECTED 9.3 mg/dL 8.5-10.1 Complete urinalysis with reflex to cultu re - 04/09/20 20:33 Urine color determination YELLOW NRG Urine clarity determination CLEAR NR G Urine pH measurement by test strip 5.5 5-9 Specific gravity of urine by test strip 1.025 1.016-1.022 Urine protein assay by test strip, semi-quantitative NEGATIVE NEGATIVE Urine glucose detection by automated test strip NE GATIVE NEGATIVE Erythrocytes detection in urine sediment by light micr oscopy NEGATIVE NEGATIVE Urine ketones detection by automated test strip NE GATIVE NEGATIVE Urine nitrite detection by test strip POSITIVE NEGATIVE Urine total bilirubin detection by test strip NEGA TIVE NEGATIVE Urine urobilinogen measurement by automated test strip (mass/volume) 0.2 mg/dL < = 1.0 Urine leukocyte esterase detection by dipstick 2+ NEGATIVE Automated urine sediment erythrocyte cou nt by microscopy (number/high power field) NONE NRG Automated urine sediment leukocyte count by microscopy (number/high power field) [HPF] NRG Bacteria detection in urine sediment by light microsco py MODERATE NRG Squamous epithelial cells detection in u rine sediment by light microscopy 10-25 NRG Crystals detection in urine sediment by light microsco py NONE NRG Casts detection in urine sediment by light microscopy NONE NRG Mucus detection in urine sediment by light microscopy NEGATIVE NRG Complete urinalysis with reflex to culture YES NRG Bacterial urine culture - 04/09/20 20:33 Bacterial urine culture [id number] NRG COLONY COUNT >100,000/ML NRG SUSCEPTIBILITY SUSCEPTIBILITY REPORTED 04/11 15:45 NRG Dirithromycin susceptibility test by dis k diffusion - 04/09/20 20:33 Gentamicin susceptibility test by minimum inhibitory c oncentration <= NRG Trimethoprim/sulfamethoxazole susceptibi lity test by minimum inhibitoryconcentration <= NRG Levofloxacin susceptibility test by minimum inhibitory concentration <= NRG Ampicillin susceptibility test by minimum inhibitory c oncentration <= NRG Cefazolin susceptibility test by minimum inhibitory co ncentration <= NRG Ceftriaxone susceptibility test by minimum inhibitory concentration <= NRG Ciprofloxacin susceptibility test by minimum inhibitor y concentration <= NRG Meropenem susceptibility test by minimum inhibitory co ncentration <= NRG Nitrofurantoin susceptibility test by mi nimum inhibitory concentration <= NRG Amoxicillin and clavulanate potassium susc JEFF <= NRG Coronavirus SARS-CoV-2 SO 2019 - 0 07:30 Coronavirus Ab [Units/volume] in Serum Negative Negative Radiology Report from [id number] on 07/25 21:22:00 Reason For ExamChest painREPORTINDICATIO N: Chest pain.COMPARISON: Comparison made with prior study from January 31, 2018.FINDINGS: The lungs demonstrate no focal pulmonary infiltrate or consolidation.There is no effusion. There is no pneumothorax. Heart size and mediastinalcontours appear appropriate. Pulmonary vascularity appears within normal limits.There is no acute osseous abnormality demonstrated.IMPRESSION:1. No radiographic evidence of an acute cardiopulmonary process.Dictated on workstation:[id number] Line FINAL DICTATED BY: ANGEL LUIS DUNBAR LDICTATED DT/TM: 07/25/2018 5:15 PMSIGNED BY: ANGEL LUIS DUNBAR MDSIGNED (ELECTRONIC SIGNATURE): 07/25/2018 6:21 PMTECHNOLOGIST: ISAIAS MAYO LRT Radiology Report from [id number] on 07/25 21:22:00 Reason For ExamPE Protocol/abd painREPOR TPROCEDURE: CT angiography chest PE with and without contrast, CT abdomen withand without contrast, CT pelvis with contrast.TECHNIQUE: Multiple contiguous axial CT images of the thorax are obtained priorto and after intravenous administration of contrast. MIP reformatted imagesobtained according to PE protocol.Multiple contiguous axial images were obtained through the abdomen and pelvisafter administration of intravenous contrast. Pre contrast acquisitions wereacquired through the abdomen.INDICATION: Shortness of breath, chest heaviness. Abdominal pain and na usea withprior hernia surgery.COMPARISON is made to previous CT abdomen and pelvis from 07/05/2018.FINDINGS:There is adequate opacification of the pulmonary arteries for diagnosticevaluation with no findings of a filling defect to suggest embolism. Thethoracic aorta is normal in caliber without dissection or aneurysm. Heart sizeis normal. There is no pericardial effusion. 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 There isno pericardial effusion.The lungs demonstrate no focal pulmonary infiltrate or consolidation. There isminimal dependent atelectasis. There is no effusion or pneumothorax. There is nopulmonary nodule or massThe abdomen demonstrates hepatic steatosis without focal abnormality. Thepatient is status post cholecystectomy. There is no abnormal biliary dilatation.The portal veins are patent. Pancreas unremarkable. The spleen is normal insize. There is no adrenal mass. The kidneys enhance normally and appearnonobstructed.There are prior operative changes of a previous midline incision. There is asmall fat-containing paraumbilical hernia. Just deep to the abdominal wallcontinues to be a nonspecific encapsulated collection which is not appreciablychanged from the prior exam. This measures approximately 2.2 x 1.4 x 2.4 cm.There are prior operative changes involving the colon with a previous righthemicolectomy. There is mild increased mucosal enhancement demonstrated withinthe sigmoid colon and rectum but no significant colonic thickening.The patient is also status post prior hysterectomy. There is unremar kableappearance of the urinary bladder. No free fluid within the pelvis. There is nofree air. Aorta is normal in caliber. There are no pathologically enlarged lymphnodes. No acute or suspicious osseous abnormality is demonstrated.IMPRESSION:1. No CT angiographic evidence pulmonary embolism.2. Lungs appear clear other than minimal dependent atelectasis.3. Hepatic steatosis with previous cholecystectomy.4. Operative changes of right hemicolectomy. The residual sigmoid colon andrectum demonstrates mucosal hyperenhancement. Underlying inflammation or colitisis not excluded.5. Operative changes of appare nt umbilical hernia repair. There is a smallresidual region of encapsulated fat density deep to the umbilicus. There also edgard stable nonspecific encapsulated collection deep to the abdominal wall. This ispresumed to be on a postsurgical basis and may reflect a region of encapsulatedfat necrosis. Given its stability, an abscess is felt to be less likely.Tech Comments: IV Contrast Name: OMNIPAQUE 350Contrast amount in ml's: 100Dictated on workstation:[id number] Line PRELIMINARY DICTATED BY: ANGEL LUIS DUNBAR MDDICTATED DT/TM: 07/25/2018 8:17 Radiology Report from [id number] on 09:37:00 Reason For Exampain, hx crohn's, fevers, multiple abdominal surgeriesREPORTPROCEDURE: CT abdomen and pelvis with contrast.TECHNIQUE: Multiple contiguous axial images were obtained through the abdomenand pelvis after administration of intravenous contrast.INDICATION: Abdominal pain with fever. History of Crohn's disease.COMPARISON: 07/25/2018FINDINGS:Lower chest: The lung bases are clear. No pericardial or pleural effusion.Peritoneum: No free intraperitoneal air or fluid.Liver and biliary system: Diffuse hepatic steatosis is unchanged.Cholecystectomy. No biliary duct dilatation.Spleen and P ancreas: Stable subcentimeter and subcapsular cyst in the anterioraspect of the spleen. The pancreas enhances normally without mass lesion orperipancreatic inflammatory changes.Adrenals: Normal. tract: The kidneys enhance normally without suspicious mass or obstruction.Urinary bladder is distended without wall thickening. Hysterectomy. No adnexalmass.GI tract: Stomach is normally filled with fluid and there is no wall thickening.No bowel obstruction. There are surgical changes of right hemicolectomy withintracolonic anastomosis in the right upper quadrant. No features of activeenteritis or colitis.Vasculature and Lymph nodes: Normal caliber aorta. No abdominal or pelviclymphadenopathy.Musculoskeletal: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
--- NOTE | 2020-05-03 18:54 | OPERATIVE REPORT ---
DATE OF SERVICE: 05/03/2020 PREOPERATIVE DIAGNOSIS: Active Crohn's disease with poor peripheral venous circulation. POSTOPERATIVE DIAGNOSES: Active Crohn's disease with poor peripheral venous circulation. PROCEDURE: Placement of left subclavian Groshong implantable catheter with PowerPort under fluoroscopy. SURGEON: Kanika Prasad MD. ANESTHESIA: Monitored anesthesia care with local. ESTIMATED BLOOD LOSS: Minimal. FINDINGS: Catheter tip at superior vena cava/right atrial junction. DISPOSITION: The patient tolerated the procedure well. INDICATIONS: The patient is a 40-year-old female with a longstanding history of Crohn's disease and was first diagnosed in 11/2004. Since that time, she has been symptomatic with crampy abdominal pain, bloody stools and has undergone multiple small bowel resections as well as colonic resection. She was on Entyvio and states that this did not work and is scheduled to proceed with another IV chemotherapy; however, has very poor peripheral venous circulation and will require Groshong implantable catheter. DESCRIPTION OF PROCEDURE: The patient was brought to the operating room, laid supine on the table. After adequate IV pain and sedative medications and monitored anesthesia care, the chest and neck were prepped and draped in standard surgical fashion. A 1% lidocaine with epinephrine was then used to anesthetize the overlying skin in the left subclavian region and the left subclavian vein was then cannulated with drawing of venous blood. Guidewire was then inserted under fluoroscopy. Cannulating needle removed and a skin incision made using a 15 blade. Dilator and sheath were then placed over the guidewire. The guidewire and dilator were then removed and the Groshong catheter was placed through the sheath until the catheter tip was at the superior vena caval -- right atrial junction. The sheath was then removed. The inner wire within the catheter was then removed and the catheter cut down to size and port placed onto the catheter. The chest reservoir was then created by extending the skin incision laterally with a 15 blade. A plane was then created between the subcutaneous fat and the anterior pectoralis fascia using blunt dissection as well as electrocautery with visualization of good hemostasis. The port was then placed into the reservoir and sutured to the anterior pectoralis fascia using interrupted 3-0 Vicryl sutures. Subcutaneous tissue was then reapproximated using 3-0 Vicryl interrupted sutures. Skin was closed using 4-0 Monocryl running subcuticular suture. The wound was then cleaned and covered with Dermabond. The patient tolerated the procedure well. We will get a post-procedure chest x-ray. Once confirmation of placement of the port, may be accessed and used at any time. Job ID: [id number] DocumentID: [id number] Dictated Date: 05/03/2020 11:12:13 Cigarette Paper Tester Date: 05/03/2020 18:54:07 Dictated By: KANIKA PRASAD MD
== END 2020-05-03 12:40 | disposition home or self-care (01) ==
LOC: SDC 08:22
PROVIDERS: ATTEND Surgery
DX: K50.811 Crohn's disease of both small and large intestine with rectal bleeding (principal); K21.9 Gastro-esophageal reflux disease without esophagitis; F41.9 Anxiety disorder, unspecified; Z87.891 Personal history of nicotine dependence
CPT/HCPCS: 36561; 71045; 76000; 87081; C1788

== ENCOUNTER 2020-05-10 10:06 | Outpatient (RCR) | payer BC ==
[~2020-05-10 10:06] MED LIST changes: -CALC600T12 PO; +CLC600T PO; -ENAL10TA PO; +ENAL10TA16 PO; +HYDR-3817 PO; -HYDR-83 PO; +MULT-1073 PO
[2020-05-10 10:10] VITALS: BP 121/84
[2020-06-27] MEDS ORDERED: HYDR-3817 PO (10:55)
== END 2020-08-08 | disposition home or self-care (01) ==
LOC: SDC 10:06
PROVIDERS: ATTEND Surgery
DX: Z45.2 Encounter for adjustment and management of vascular access device (principal); K50.90 Crohn's disease, unspecified, without complications
CPT/HCPCS: 96523

== ENCOUNTER 2020-06-26 09:32 | Outpatient (CLI) | payer BC ==
[~2020-06-26] VITALS: Ht 160 cm; Wt 85.9 kg
[~2020-06-26 09:32] MED LIST changes: +ENAL10TA PO; -ENAL10TA16 PO
[2020-06-27] MEDS ORDERED: HYDR-3817 PO (10:55)
== END 2020-06-26 10:37 ==
LOC: PREOP 09:32
PROVIDERS: ATTEND Surgery
DX: Z01.818 Encounter for other preprocedural examination (principal)

== ENCOUNTER 2020-06-27 10:36 | Day surgery (SDC) | payer BC ==
[2020-06-27] VITALS (12 sets, daily range): BP systolic 105–126; BP diastolic 70–92
[~2020-06-27] VITALS: Ht 160 cm; Wt 85.9 kg
[~2020-06-27 10:36] MED LIST changes: -ENAL10TA PO; +ENAL10TA16 PO
--- NOTE | 2020-06-27 10:54 | Progress Note-Pre Operative ---
Pre-Operative Progress Note H&P Reviewed The H&P was reviewed, patient examined and no changes noted. Date Seen by Provider: Jun 27, 2020 Time Seen by Provider: 10:50 Date H&P Reviewed: Jun 27, 2020 Time H&P Reviewed: 10:50 Pre-Operative Diagnosis: left axilla hydradenitis suppuritiva KANIKA PRASAD MD Jun 27, 2020 10:54
[2020-06-27] MEDS ORDERED: HYDR-3817 PO (10:55)
--- NOTE | 2020-06-27 10:56 | Discharge Inst-Surgical ---
D/C Lap Instructions-SHANICE New, Converted, or Re-Newed RX: RX on Chart Follow Up Appt in 2 weeks Activity as tolerated No driving for 24 hours No driving while on pain medications Incentive Spirometry use every 2 hours while awake Regular Diet Symptoms to Report: Fever over 101 degree F, Nausea/Vomiting Infection Signs and Symptoms to report: Increased redness, Foul odor of wound, Increased drainage Bathing instructions: May shower Operative Area Clean/Dry; Keep incision clean/dry If any problems/questions: Contact your physician or go to Emergency Room KANIKA PRASAD MD Jun 27, 2020 10:55
[2020-06-27] MEDS ORDERED: ONDANSETRON 4 MG/2 ML (SDV) Z0FRAN IVP PRN ×2 (11:00→14:45)
[2020-06-27] MEDS ORDERED: oxyCODONE/APAP 5/325MG (PERCOCET 5) TABLET PO PRN (11:00)
[2020-06-27] MEDS ORDERED: morphine INJ 10 MG/ML 1ML (SYR OR VIAL) IVP PRN ×2 (11:00)
[2020-06-27] MEDS ORDERED: ACETAMINOPHEN 325 MG TABLET PO PRN (11:00)
[2020-06-27] MEDS ORDERED: CLINDAMYCIN 600 MG/50 ML IVPB 50 ML IV ONE (11:15)
[2020-06-27] MEDS ORDERED: LACTATED RINGERS 1,000 ML IV PRN (11:27)
[2020-06-27] MEDS ORDERED: BUP/EPI 0.5% 1:200,000 (SENSORCAINE) 30 ML VIAL ONE (12:32)
[2020-06-27] MEDS ORDERED: MIDAZOLAM 2 MG/2 ML (VERSED) VIAL ONE (12:48)
[2020-06-27] MEDS ORDERED: proPOfol 200 MG/20 ML (DIPRIVAN) VIAL IV ONE (12:54)
[2020-06-27] MEDS ORDERED: ONDANSETRON 4 MG/2 ML (SDV) Z0FRAN ONE (12:54)
[2020-06-27] MEDS ORDERED: LIDOCAINE PF 2% 5 ML (XYLOCAINE) VIAL ONE (12:54)
[2020-06-27] MEDS ORDERED: fentaNYL INJECTION 100 MCG/2 ML AMP ONE ×2 (12:54→14:06)
[2020-06-27] MEDS ORDERED: FAMOTIDINE 20MG/2ML IV (PEPCID) IVP ONE (13:00)
[2020-06-27] MEDS ORDERED: PHENYLEPHRINE 100 MCG/ML 10 ML (ANESTHESIA) SYR ONE (13:22)
[2020-06-27] MEDS ORDERED: SUCCINYLCHOLINE INJ 100 MG/5 ML SYR/VIAL ONE (14:21)
--- NOTE | 2020-06-27 14:22 | Progress Note-Post Operative ---
Post-Operative Progess Note Surgeon (s)/Patent Law Specialist (s) Surgeon KANIKA PRASAD MD Patent Law Specialist: torri lara WOOD TURNER Pre-Operative Diagnosis left axilla hydradenitis suppuritiva Post-Operative Diagnosis same Procedure & Operative Findings Date of Procedure 06/27/20 Procedure Performed/Findings excision skin and subcutaneous 12x6cm with flap closure. Anesthesia Type general LMA Estimated Blood Loss Estimated blood loss (mL): minimal Specimens/Packing Specimens Removed left axilla KANIKA PRASAD MD Jun 27, 2020 14:21
[2020-06-27] MEDS ORDERED: SEVOFLURANE (ULTANE) 15 ML INHAL SOLN ONE (14:36)
--- NOTE | 2020-06-27 14:36 | Anesthesia-General Post-Op ---
General Patient Condition Mental Status/LOC: Same as Preop Cardiovascular: Satisfactory Nausea/Vomiting: Absent Respiratory: Satisfactory Pain: Controlled Complications: Absent Post Op Complications Complications None Follow Up Care/Instructions Patient Instructions None needed. Anesthesia/Patient Condition Patient Condition Patient is doing well, no complaints, stable vital signs, no apparent adverse anesthesia problems. No complications reported per nursing. CHAVA WHITE CRNA Jun 27, 2020 14:36
[2020-06-27] MEDS ORDERED: MEPERIDINE (DEMEROL) INJ 50 MG/ML IVP ONE (14:45)
[2020-06-27] MEDS ORDERED: fentaNYL INJECTION 100 MCG/2 ML AMP IVP ONE (14:45)
[2020-06-27] MEDS ORDERED: morphine INJ 10 MG/ML 1ML (SYR OR VIAL) IVP ONE (14:45)
--- NOTE | 2020-06-27 15:26 | OPERATIVE REPORT ---
DATE OF SERVICE: 06/27/2020 PREOPERATIVE DIAGNOSIS: Complicated hidradenitis suppurativa, left axilla. POSTOPERATIVE DIAGNOSES: Complicated hidradenitis suppurativa, left axilla with the dimensions 12 x 6 cm in size. PROCEDURE: Excision hidradenitis encompassing skin and subcutaneous tissue, 12 x 6 cm in size. SURGEON: Kanika Prasad MD. SHEETING PULLER: Alex Bazzi APRN. ANESTHESIA: General laryngeal mask airway and local. ESTIMATED BLOOD LOSS: Minimal. FINDINGS: Acute on chronic hidradenitis suppurativa, left axilla. DISPOSITION: The patient tolerated the procedure well. INDICATIONS: The patient is a 40-year-old female who has had a longstanding issue of redness, swelling and purulent drainage in the bilateral axilla. She underwent excision of hidradenitis suppurativa of the right axilla in 2019 as well as in the groin region. She has had the same issue in the left axilla, which was initially less severe; however, over time has become significant in terms of redness, swelling as well as a recurrent purulent drainage and abscess formation. Upon examination in the office, she was found to have a complicated hidradenitis suppurativa of a large area of the axilla including full thickness skin. The dimensions of the excision were 12 x 6 cm in size. DESCRIPTION OF PROCEDURE: The patient was brought to the operating room, laid supine on the table. After adequate IV pain and sedative medications and general laryngeal mask airway intubation, the axilla was prepped and draped in standard surgical fashion. A 1% lidocaine with epinephrine was then used to anesthetize overlying skin to the left axilla. The full thickness skin and subcutaneous tissue of the left axilla were then excised in an elliptical shape, 12 x 6 cm in size using a 15 blade. The dissection of the subcutaneous tissue to the level of the fascia was then done using electrocautery with visualization of good hemostasis. No specimen was sent to pathology. Good hemostasis was observed. We then proceeded to place, superior and inferior skin flaps at the level of the subcutaneous tissue using electrocautery. The skin flaps were then reapproximated at this level, the subcutaneous tissue using 2-0 Vicryl interrupted sutures. This was done in 2 layers. The skin was then closed using 4-0 Prolene interrupted sutures. The skin was then cleaned and covered with sterile gauze. The patient tolerated the procedure well. We will start IV normal pain medication as well as a clear liquid diet. Once she is tolerating clears, has good pain control with oral pain medications, ambulating well, we will discharge her home. She will be instructed to keep the area clean and dry as possible and prevent any moisture accumulation. We will have her follow up in my office in approximately 2 weeks. Job ID: [id number] DocumentID: [id number] Dictated Date: 06/27/2020 14:27:43 Financial Advisor Date: 06/27/2020 15:25:38 Dictated By: KANIKA PRASAD MD
== END 2020-06-27 16:45 | disposition home or self-care (01) ==
LOC: SDC 10:36
PROVIDERS: ATTEND Surgery
DX: L73.2 Hidradenitis suppurativa (principal); J45.909 Unspecified asthma, uncomplicated; G43.909 Migraine, unspecified, not intractable, without status migrainosus; G89.29 Other chronic pain; K21.9 Gastro-esophageal reflux disease without esophagitis; F41.9 Anxiety disorder, unspecified; I10 Essential (primary) hypertension; F32.9 Major depressive disorder, single episode, unspecified; Z79.899 Other long term (current) drug therapy; Z88.8 Allergy status to other drugs, medicaments and biological substances; Z88.6 Allergy status to analgesic agent; Z88.0 Allergy status to penicillin; Z88.2 Allergy status to sulfonamides; Z87.891 Personal history of nicotine dependence; Z90.710 Acquired absence of both cervix and uterus; Z83.3 Family history of diabetes mellitus
CPT/HCPCS: 87081; 88304; 94664

== ENCOUNTER 2022-12-08 20:43 | Emergency (ER) | payer OTHER, BC, MEDICAID ==
[~2022-12-08] VITALS: Ht 160 cm; Wt 72.5 kg
[~2022-12-08 20:43] MED LIST changes: -ALEN70TA5; +ALEN70TA80; +CALC600T91 PO; -CIPR500T4 PO; +CIPR500T5 PO; -CLC600T PO; +CYCL10TA25 PO; +DICY20TA PO; -DICY20TA10 PO; +HYDR-4085 PO; -HYDR-87 PO; +OMEP20TA56 PO; -OMEP20TA7 PO; -OMEP40CA27 PO; +OMEP40CA6 PO; -OXYC-471 PO; +OXYC1TAB11 PO; +POTA-160 PO; -POTA10TA6 PO
[2022-12-08] MEDS ORDERED: fentaNYL INJ 100 MCG/2 ML AMP IVP STA ×2 (20:52→22:28)
[2022-12-08] MEDS ORDERED: NS IV 1000 ML 1,000 ML IV STA (20:52)
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
[2022-12-08 21:31] LABS: BASOPHILS # (AUTO) 0.1 10^3/uL (0.0-0.1); BASOPHILS % (AUTO) 1 % (0-10); EOSINOPHILS # (AUTO) 0.6 10^3/uL (0.0-0.3); EOSINOPHILS % (AUTO) 6 % (0-10); HEMATOCRIT 34 % (35-52); HEMOGLOBIN 11.5 g/dL (11.5-16.0); LYMPHOCYTES # (AUTO) 2.8 10^3/uL (1.0-4.0); LYMPHOCYTES % (AUTO) 30 % (12-44); MEAN CORPUSCULAR HEMOGLOBIN 28 pg (25-34); MEAN CORPUSCULAR HGB CONC 34 g/dL (32-36); MEAN CORPUSCULAR VOLUME 85 fL (80-99); MEAN PLATELET VOLUME 8.3 fL (9.0-12.2); MONOCYTES # (AUTO) 0.7 10^3/uL (0.0-1.0); MONOCYTES % (AUTO) 7 % (0-12); NEUTROPHILS # (AUTO) 5.4 10^3/uL (1.8-7.8); NEUTROPHILS % (AUTO) 56 % (42-75); PLATELET COUNT 422 10^3/uL (130-400); WHITE BLOOD COUNT 9.6 10^3/uL (4.3-11.0)
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
[2022-12-08 21:48] LABS: INR 0.9 (0.8-1.4); PROTHROMBIN TIME PATIENT 12.3 SEC (12.2-14.7)
[2022-12-08 21:51] LABS: BILIRUBIN,TOTAL 0.3 MG/DL (0.1-1.0); CALCIUM 9.8 MG/DL (8.5-10.1); CREATININE SERUM 0.74 MG/DL (0.60-1.30); POTASSIUM 2.7 MMOL/L (3.6-5.0)
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
[2022-12-08 21:52] LABS: ALBUMIN 4.3 GM/DL (3.2-4.5); TOTAL PROTEIN 7.1 GM/DL (6.4-8.2)
[2022-12-08] MEDS ORDERED: KCL 20 MEQ TAB (K-DUR) PO STA (21:53)
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
[2022-12-08 22:52] VITALS: BP 132/92
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
== END 2022-12-08 22:54 | disposition home or self-care (01) ==
LOC: EDUNIT# 20:48 → ER FS 20:50
DX: S16.1XXA Strain of muscle, fascia and tendon at neck level, initial encounter (principal); S29.012A Strain of muscle and tendon of back wall of thorax, initial encounter; S60.211A Contusion of right wrist, initial encounter; S80.02XA Contusion of left knee, initial encounter; S20.211A Contusion of right front wall of thorax, initial encounter; S30.1XXA Contusion of abdominal wall, initial encounter; M25.511 Pain in right shoulder; Z28.310 Unvaccinated for COVID-19; Z88.5 Allergy status to narcotic agent; Z87.19 Personal history of other diseases of the digestive system; Z90.49 Acquired absence of other specified parts of digestive tract; Z98.890 Other specified postprocedural states; V89.2XXA Person injured in unspecified motor-vehicle accident, traffic, initial encounter; Y92.410 Unspecified street and highway as the place of occurrence of the external cause
CPT/HCPCS: 36415; 70450; 70486; 71250; 72125; 73110; 73564; 74176; 80053; 83690; 85025; 85610; 85730